=== PATIENT | female | born 1955 | race Caucasian/White ===

== ENCOUNTER → 2016-10-28 | Outpatient (CLI) | payer OTHER ==
[~2016-10-28] MED LIST: ATRINSX INH; BUDE0.5S NEB; DOCU100C31 PO; FRS/40 PO; IPRA1AER2 INH; IPRASOL4 INH; LEVAAER2 INH; POLY335040 PO; RBX750 PO; SENN8.6T45 PO; ULT50HP PO; WARF-246 PO; XPNINS125 PO
--- NOTE | 2016-10-28 14:00 | DIAGNOSTIC IMAGING REPORT ---
CHEST 2 VIEWS ROUTINE CLINICAL HISTORY: Chronic obstructive pulmonary disease. COMPARISON STUDY: Chest CT June 21, 2016 per FINDINGS: This exam is compromised by suboptimal penetration. No pneumothorax is present. No pleural effusion is present. There is no radiographic evidence of pulmonary edema. Mild interstitial prominence is unchanged. Hazy bibasilar opacities persist. IMPRESSION: Technically difficult exam to interpret. No definite change since prior exam. Hazy bibasilar opacities and interstitial thickening. Electronically signed by: Daniel Babb M.D. 10/28/2016 1:58 PM Dictated Date/Time: 10/28/2016 1:55 PM
== END | disposition home or self-care (01) ==
LOC: C.RAD1850 13:43
PROVIDERS: ATTEND Internal Medicine Pulmonary Disease
DX: E66.2 Morbid (severe) obesity with alveolar hypoventilation (principal); G47.33 Obstructive sleep apnea (adult) (pediatric); J44.1 Chronic obstructive pulmonary disease with (acute) exacerbation; J44.9 Chronic obstructive pulmonary disease, unspecified

== ENCOUNTER → 2016-11-01 | Outpatient (CLI) | payer OTHER ==
[2016-11-01 14:56] LABS: INR 2.2 (0.9-1.1); PROTHROMBIN TIME (PATIENT) 24.2 SECONDS (9.0-12.0)
== END | disposition home or self-care (01) ==
LOC: C.LAB1850 13:17
PROVIDERS: ATTEND Nurse Practitioner Family
DX: I26.99 Other pulmonary embolism without acute cor pulmonale (principal)

== ENCOUNTER → 2017-01-20 | Outpatient (CLI) | payer OTHER ==
[~2017-01-20] MED LIST changes: +FENTANYL CITRATE INJ 50 MCG/1 ML 2 ML VIAL ONE
[2017-01-20 16:51] LABS: BLOOD UREA NITROGEN 15 mg/dl (7-18); BUN/CREATININE RATIO 24.1 (10-20); CREATININE 0.61 mg/dl (0.60-1.20)
[2017-01-20 16:55] LABS: INR 1.5 (0.9-1.1); PROTHROMBIN TIME (PATIENT) 16.8 SECONDS (9.0-12.0)
== END | disposition home or self-care (01) ==
LOC: C.LABPBG 13:36
PROVIDERS: ATTEND Family Medicine
DX: I26.99 Other pulmonary embolism without acute cor pulmonale (principal)

== ENCOUNTER → 2017-01-31 | Outpatient (CLI) | payer OTHER ==
[~2017-01-31] MED LIST changes: -FENTANYL CITRATE INJ 50 MCG/1 ML 2 ML VIAL ONE; +OPTIRAY 320 IV PRN
--- NOTE | 2017-01-31 12:07 | DIAGNOSTIC IMAGING REPORT ---
CHEST CTA for PULMONARY ARTERIES CT DOSE: 526.66 mGycm HISTORY: Chest pain abnormal CT exam TECHNIQUE: Multiaxial CT images of the chest were performed following the intravenous administration of contrast to evaluate the pulmonary arteries. Maximal intensity projection images were also obtained. COMPARISON STUDY: 06/21/2016 FINDINGS: Stable focal bronchiectatic changes anterior aspect right middle lobe. Subtle unchanging nodularity of the right lung. Subtle interstitial prominence compared to the prior exam. No well-defined focal infiltrate. No significant hilar or mediastinal adenopathy. IMPRESSION: 1. Since subtle increase in interstitial prominence as compared to the prior study. 2. Study otherwise is similar with unchanging micronodule changes within the right lung as well as focal bronchiectatic changes anterior right middle lobe. Electronically signed by: Naren Madrid M.D. 01/31/2017 12:05 PM Dictated Date/Time: 01/31/2017 12:02 PM
[2017-01-31 12:58] LABS: INR 2.6 (0.9-1.1); PROTHROMBIN TIME (PATIENT) 28.9 SECONDS (9.0-12.0)
== END | disposition home or self-care (01) ==
LOC: C.CTS 10:49
PROVIDERS: ATTEND Nurse Practitioner Family
DX: I26.99 Other pulmonary embolism without acute cor pulmonale (principal)

== ENCOUNTER → 2017-05-29 | Outpatient (CLI) | payer OTHER ==
[~2017-05-29] MED LIST changes: -OPTIRAY 320 IV PRN
[2017-05-29 17:56] LABS: BASO % 0.3 %; BASO ABS # 0.02 K/uL (0-0.2); COMPLETE YES; EOS % 2.6 %; HEMATOCRIT 40.9 % (37-47); IG% 0.1 %; LYMPH % 21.2 %; LYMPH ABS # 1.45 K/uL (1.2-3.4); MEAN CELL VOLUME 86.1 fL (80-100); MEAN CORPUSCULAR HEMOGLOBIN 25.9 pg (25-34); MEAN CORPUSCULAR HGB CONC 30.1 g/dl (32-36); MEAN PLATELET VOLUME 10.9 fL (7.4-10.4); MONO % 6.1 %; NEUT % 69.7 %; PLATELET COUNT 164 K/uL (130-400); RED BLOOD COUNT 4.75 M/uL (4.2-5.4); WHITE BLOOD COUNT 6.84 K/uL (4.8-10.8)
[2017-05-29 18:09] LABS: ALT/SGPT 14 U/L (12-78); BLOOD UREA NITROGEN 12 mg/dl (7-18); BUN/CREATININE RATIO 19.2 (10-20); CALCIUM 8.2 mg/dl (8.5-10.1); CARBON DIOXIDE 40 mmol/L (21-32); CHLORIDE 95 mmol/L (98-107); GLUCOSE 131 mg/dl (70-99); POTASSIUM 4.5 mmol/L (3.5-5.1); SODIUM 137 mmol/L (136-145)
[2017-05-29 18:20] LABS: ALB/GLOB RATIO 0.7 (0.9-2); ALKALINE PHOSPHATASE 126 U/L (45-117); AST/SGOT 8 U/L (15-37); FERRITIN 27.9 ng/ml (8.0-388.0)
== END | disposition home or self-care (01) ==
LOC: C.LABPBG 15:02
PROVIDERS: ATTEND Nurse Practitioner Family
DX: J44.9 Chronic obstructive pulmonary disease, unspecified (principal); E66.2 Morbid (severe) obesity with alveolar hypoventilation; R25.2 Cramp and spasm

== ENCOUNTER → 2017-10-11 | Outpatient (CLI) | payer OTHER ==
[~2017-10-11] MED LIST changes: +PERFLUTREN LIPID MICROSPHERE (DEFINITY) IV ONE
--- NOTE | 2017-10-11 15:45 | ECHOCARDIOGRAM REPORT ---
*NOTICE TO RECEIVING [employer] This information is strictly Confidential and protected under [place] law. [place] law prohibits you from making any further disclosure of this information unless further disclosure is expressly permitted by the written consent of the person to whom it pertains or is authorized by law. A general authorization for the release of medical or other information is not sufficient for this purpose. Hospital accepts no responsibility if the information is made available to any other person, INCLUDING THE PATIENT. Interpretation Summary * Name: JASON MORILLO Study Date: 10/11/2017 01:44 PM BP: 169/78 mmHg * Patient Location: [facility] HR: 86 * : 1955 (M/d/yyyy) Gender: Female Height: 59 in * Age: 61 yrs Ethnicity: CA Weight: 310 lb * Ordering Physician: Patric Bourne * Referring Physician: Patric Bourne * Performed By: Thania Botello RDCS * * Reason For Study: CAD * BSA: 2.2 m2 * -- Conclusions -- * Left ventricular systolic function is normal. * No regional wall motion abnormalities noted. * Ejection Fraction = 55-60%. * There is borderline concentric left ventricular hypertrophy. * Grade I diastolic dysfunction, (abnormal relaxation pattern). * No significant vavlular pathology. Procedure Details * A contrast injection of Definity was performed to improve assessment of LV function. * Contrast was injected into an intravenous site in the left arm. * One vial of Definity ultrasound contrast was diluted in normal saline to a total volume of 10 ml. A total of '2' ml of solution was administered during imaging. * Lot # [id number] of Definity utilized for procedure. * Expiration date 1 NOV 20. * The attending nurse who injected the contrast agent was MARY MENDEZ RN. Left Ventricle * The left ventricle is normal in size. * There is borderline concentric left ventricular hypertrophy. * Left ventricular systolic function is normal. * Ejection Fraction = 55-60%. * No regional wall motion abnormalities noted. Right Ventricle * The right ventricle is not well visualized. * The right ventricular systolic function is normal as assessed by tricuspid annular plane systolic excursion (TAPSE) (normal >1.5 cm). Atria * The left atrium is not well visualized. * Right atrium not well visualized. * There is no evidence of atrial septal defect, but resolution does not allow assessment for a patent foramen ovale. Mitral Valve * The mitral valve is not well visualized. * There is no mitral valve stenosis. * Significant mitral regurgitation is absent. Tricuspid Valve * The tricuspid valve is not well visualized. * Significant tricuspid regurgitation is absent. Aortic Valve * The aortic valve is not well visualized. * The aortic valve opens well. * No hemodynamically significant valvular aortic stenosis. * There is no significant aortic regurgitation. Pulmonic Valve * The pulmonic valve is not well visualized. Great Vessels * The aortic root is normal size. * The pulmonary is not well visualized. Pericardium/Pleural * There is no pericardial effusion. Great Vessels * Inferior vena cava not well seen. Left Ventricular Diastolic Function * Grade I diastolic dysfunction, (abnormal relaxation pattern). MMode 2D Measurements and Calculations Ao root diam 2.8 cm Ao root area 6.2 cm\S\2 LA dimension 3.8 cm LA/Ao 1.3 LVAd ap4 29.8 cm\S\2 LVLd ap4 8.2 cm EDV(MOD-sp4) 89.9 ml EDV(sp4-el) 92.3 ml LVAs ap4 16.9 cm\S\2 LVLs ap4 6.5 cm ESV(MOD-sp4) 36.1 ml ESV(sp4-el) 37.1 ml EF(MOD-sp4) 59.9 % EF(sp4-el) 59.9 % LVAd ap2 30.9 cm\S\2 LVLd ap2 8.6 cm EDV(MOD-sp2) 92.6 ml EDV(sp2-el) 94.5 ml LVAs ap2 17.6 cm\S\2 LVLs ap2 6.7 cm ESV(MOD-sp2) 38.7 ml ESV(sp2-el) 39.4 ml EF(MOD-sp2) 58.2 % EF(sp2-el) 58.3 % LVLd %diff 5.0 % EDV(MOD-bp) 94.0 ml LVLs %diff 2.2 % ESV(MOD-bp) 37.3 ml EF(MOD-bp) 60.3 % SV(MOD-sp4) 53.9 ml SI(MOD-sp4) 24.3 ml/m\S\2 SV(MOD-sp2) 54.0 ml SI(MOD-sp2) 24.3 ml/m\S\2 SV(MOD-bp) 56.7 ml SI(MOD-bp) 25.5 ml/m\S\2 SV(sp4-el) 55.3 ml SI(sp4-el) 24.9 ml/m\S\2 SV(sp2-el) 55.1 ml SI(sp2-el) 24.8 ml/m\S\2 Doppler Measurements and Calculations MV E max phyllis 73.0 cm/sec MV A max phyllis 92.7 cm/sec MV E/A 0.79 MV dec time 0.26 sec Ao V2 max 146.5 cm/sec Ao max PG 8.6 mmHg Ao max PG (full) 3.8 mmHg LV V1 max PG 4.8 mmHg LV V1 max 109.2 cm/sec
== END | disposition home or self-care (01) ==
LOC: C.CPL 13:33
PROVIDERS: ATTEND Nurse Practitioner Family
DX: I25.10 Atherosclerotic heart disease of native coronary artery without angina pectoris (principal)

== ENCOUNTER 2017-11-04 19:26 | Emergency (ER) | payer OTHER ==
[~2017-11-04] VITALS: Ht 149.9 cm; Wt 178.0 kg
[~2017-11-04 19:26] MED LIST changes: -PERFLUTREN LIPID MICROSPHERE (DEFINITY) IV ONE
[2017-11-04 19:30] VITALS: TEMP 36.6; Ht 149.9 cm; Wt 178.0 kg
[2017-11-04] MEDS ORDERED: TRAMADOL HCL 50 MG TAB PO STA (19:45)
[2017-11-04] MEDS ORDERED: IBUPROFEN 200 MG TAB PO STA (19:45)
[2017-11-04] MEDS ORDERED: ACETAMINOPHEN 325 MG TAB PO STA (19:45)
--- NOTE | 2017-11-04 19:47 | EMERGENCY ROOM VISIT NOTE ---
History Report prepared by Monica: Shahzad Colon Under the Supervision of: Dr. Kamran White M.D. 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 She rates her pain as a 10/10 in severity. She describes the pain as a sharp sensation and denies any radiation of pain. Negative hitting her head, LOC, tobacco use. The patient states that she was coming out of the bathroom 20 minutes ago when she tried to avoid stepping on a bottle cap. She reports that when she went to move around it when "everything gave out" and she landed on her left wrist. She states that since the incident, she has been experiencing left wrist pain. The patient states that she has had similar problems in the past. She reports that she uses 6 L of oxygen due to her history of COPD. 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 A total of ten systems were reviewed and were otherwise negative. Past Medical & Surgical Medical Problems: (1) Acute on chronic respiratory failure with hypoxia and hypercapnia (2) Body mass index 30+ - obesity (3) Chr obstructive pulmonary disease w/ acute lower respiratory infxn (4) Chronic renal impairment (5) Essential hypertension (6) GENERAL OSTEOARTHROSIS (7) Plantar fasciitis Family History Cancer Diabetes mellitus Heart disease Hypertension Kidney disease Lung disease Social History Smoking Status: Former Smoker Alcohol Use: none Drug Use: none Marital Status: single Housing Status: unknown Occupation Status: retired Current/Historical Medications Scheduled Budesonide Soln (Pulmicort Respules 0.5MG/2ML), 1 VIAL NEB BID Docusate Sodium (Docusate Sodium), 1 CAP PO BID Ergocalciferol (Vitamin D 70130 Unit), 1 TAB PO WK Furosemide (Lasix), 40 MG PO DAILY Home O2 Therapy (Oxygen), 4 LITERS NA CONTINOUS Ipratropium [place] (Atrovent 0.02% Soln), 1 UNIT INH QID Methocarbamol (Methocarbamol), 750 MG PO QID Omeprazole (Prilosec), 40 MG PO DAILY [Utibron], 1 PUFF PO BID Scheduled PRN Albuterol Hfa (Ventolin Hfa), 2-4 PUFFS INH Q6H PRN for Shortness of Breath Albuterol Sulf (Albuterol Sulfate), 1 UNIT NEB Q4 PRN for Shortness of Breath Polyethylene (Miralax Powder Packet), 17 GM PO DAILY PRN for Constipation Tramadol (Ultram), 50 MG PO Q4H PRN for Pain Tramadol (Ultram), 50 MG PO Q8H PRN for Pain Allergies Coded Allergies: Codeine (Verified Adverse Reaction, Mild, SHAKING, 11/04/17) Oxycodone (Verified Adverse Reaction, Unknown, rash/shakes, 11/04/17) Physical Exam Vital Signs Date Time Temp Pulse Resp B/P (MAP) Pulse Ox O2 Delivery O2 Flow Rate FiO2 11/04/17 22:47 80 20 154/55 99 Nasal Cannula 6.0 11/04/17 21:23 80 20 127/61 98 Room Air 11/04/17 19:30 36.6 90 22 178/76 100 Nasal Cannula 6.0 Physical Exam GENERAL: Awake, alert, well-appearing, NAD, obese, NC in place HENT: Normocephalic, atraumatic. EYES: Normal conjunctiva. Sclera non-icteric. NECK: Supple. No nuchal rigidity. FROM. RESPIRATORY: CTAB, no rhonchi, wheezing, crackles CARDIAC: RRR, no MRG ABDOMEN: Soft, NTND, BS+ MSK: No chest wall TTP, non pitting LE edema, Distal ulnar and radial pain. No pain in elbow, upper arm, or shoulder. NEURO: GCS 15, CN 2-12 intact, moves all 4s on command. NVI distally LUE to M/U/ R nerves, somewhat limited to pain. SKIN: No rash or jaundice noted. Medical Decision & Procedures ER Provider Diagnostic Interpretation: X-ray: Per my interpretation, radiologist review. WRIST 2 VIEW CLINICAL HISTORY: Fall on outstretched hand. COMPARISON: None FINDINGS: There is a markedly comminuted, moderately displaced distal left radial fracture with intra-articular extension. Multiple bone fragments are present. There is intra-articular extension. Dorsal tilt of the distal component is noted. There is an acute mildly displaced fracture of the ulnar styloid. Carpal bones appear intact. A ring on the fourth finger is present. IMPRESSION: 1. Markedly comminuted, moderately displaced distal left radial fracture with intra-articular extension consistent with a Colles' fracture. 2. Acute mildly displaced ulnar styloid fracture. Electronically signed by: Daniel Babb M.D. 11/04/2017 8:17 PM Dictated Date/Time: 11/04/2017 8:16 PM Medications Administered Medications (Trade) Dose Ordered Sig/Monse Route Start Time Stop Time Status Last Admin Dose Admin Acetaminophen (Tylenol Tab) 650 mg NOW STAT PO 11/04/17 19:45 11/04/17 19:47 DC 11/04/17 19:55 650 MG Ibuprofen (Advil Tab) 400 mg NOW STAT PO 11/04/17 19:45 11/04/17 19:48 DC 11/04/17 19:55 400 MG Tramadol HCl (Ultram Tab) 50 mg NOW STAT PO 11/04/17 19:45 11/04/17 19:48 DC 11/04/17 19:55 50 MG Morphine Sulfate (MoRPHine SULFATE INJ) 4 mg ONE STAT IM 11/04/17 21:47 11/04/17 21:48 DC 11/04/17 22:01 4 MG Procedure Left Wrist Fracture Reduction Indication: Fracture Verbal consent obtained. Risks and benefits were explained with the usual customary discussion. A time out was taken. Neurovascular examination before the procedure revealed intact MRU nerves. The posterior aspect of the distal forearm was cleansed with chlorapep and then the subcutaneous tissue was injected with a 22G needle with 7 cc's of lidocaine w/ epinephrine. This resulted in good anesthesia. The patient was wrapped partially in webril. Traction/counter traction applied with the help of an retirement assistant and a splint was placed and ERICKA wrap applied. Patient's radial head was pressed into position. Post procedure XR showed mild improvement in her alignment. Neurovascular examination after the procedure revealed intact MRU nerves. The patient tolerated the procedure well. ED Course 1937: The patient was evaluated in room C03. A complete history and physical exam was performed. 2021: I reevaluated the patient and updated her on her results. 2110: I performed a Left Wrist Reduction on the patient. See procedure notes for further details. 2247: I discussed the patient's case with [facility]. He reports he is able to see the patient on Monday. 2252: I reevaluated the patient. Discussed results and discharge instructions: She verbalized understanding and agreement. The patient is ready for discharge. Medical Decision Triage Nursing notes reviewed. 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 The patient's presentation and history were concerning for etiologies such as fracture, dislocation, neurovascular compromise, compartment syndrome, soft tissue injury, as well as others were entertained. Patient was seen and evaluated the bedside. Patient did have a mechanical fall approximately 2030 minutes prior to arrival. Patient did complain of some left- sided wrist pain. Patient denied any syncope. Patient does chronically use 6 L of home O2. Asians vital signs stable and patient is not hypoxic on her usual home oxygen. Patient did have a plain film completed which did show a both bone forearm fracture. It is closed neurovascularly intact. She did have a Colles' as well as an ulnar styloid fracture. Patient did undergo a hematoma block and attempt reduction. The alignment improved but is not completely satisfactory. I did discuss the patient with the on-call orthopedist. She will be seen in clinic on Monday at their office. Patient was deemed suitable for outpatient follow-up and treatment at this time. Patient was told to remain in her splint as well as a sling for comfort. Rice therapy encouraged. Patient was given strict follow-up, discharge, and return precautions. All questions were answered. Patient was deemed suitable for outpatient follow-up at this time. Patient agreed with the plan of care and was safely discharged home. The chart was completed utilizing [employer] Speech voice recognition software. Grammatical errors, random word insertions, pronoun errors, and incomplete sentences are an occasional consequence of this system due to software limitations, ambient noise, and hardware issues. Any formal questions or concerns about the content, text, or information contained within the body of this dictation should be directly addressed to the physician for clarification. Medication Reconcilliation Current Medication List: was personally reviewed by me Blood Pressure Screening Patient's blood pressure: Elevated blood pressure Blood pressure disposition: Elevated BP felt to be situational Consults Time Called: 2244 Consulting Physician: [facility] Returned Call: [phone] I discussed the patient's case with [facility]. He reports he is able to see the patient on Monday. Impression Primary Impression: Colles' fracture of left radius, initial encounter for closed fracture Additional Impressions: Fracture of ulnar styloid Fall Scribe Attestation The scribe's documentation has been prepared under my direction and personally reviewed by me in its entirety. I confirm that the note above accurately reflects all work, treatment, procedures, and medical decision making performed by me. Departure Information Dispostion Home / Self-Care Prescriptions Tramadol (Ultram) 50 Mg Tab 50 MG PO Q8H Y for Pain, #12 TAB Prov: Kamran White M.D. 11/04/17 Referrals Beatriz Baker DO (PCP) Beto Mendoza DO Patient Instructions ED Fx Colles Wrist Redu Requ, ED Mechanical Fall, ED Prevention Fall, ED RICE, [facility] Additional Instructions Please return to the emergency department if you have worsening or recurrent symptoms not amenable to at-home treatment. Please call for a follow-up appointment with her primary care physician. Please take your medications as prescribed. If you have other concerns and/or complaints please feel free to also call your primary care physician's office or return the ED for further evaluation, management, and treatment. You were found to have an elevated blood pressure today (>120 sytolic or >90 diastolic). Per medicare guidelines, you need to follow up with this blood pressure screening with your Primary Care Physician (PCP). For a new PCP call [phone]. You received narcotic or benzodiazepene medication while in the emergency room today. This is an addictive medication that may cause drowziness as well as constipation. Do not drive, operate heavy machinery, or drink alcohol under the influence of this medication. You may take 400 mg Ibuprofen every 6 hours as needed for pain with food for no more than 2 consecutive days. You may take tylenol 1000 mg every 6 hours as needed for pain. You may take motrin and tylenol separately or at the same time. If he still have discomfort you may take tramadol. Please only take as prescribed as this is a sedating medicine. Please follow up on 11/06/[address] Beto Mendoza at [facility] at 1015AM. They suggested you arrive at 945AM. Address: [address] [facility], [place] [address] Hours: Closed Opens 8AM Mon Take your medications as prescribed. If taking an antibiotic consider taking a probiotic and/or eating yogurt, but at the least, please take with food as it can cause upset stomach. If culture results are not available at discharge, if they are positive for concern of infection, you will be informed of the results as soon as they are available. If you were seen between 11pm and 7AM all radiology reads will be re-read by our in house staff. If any major discrepancies are discovered, you will be notified. You have been examined and treated today on an emergency basis only. This is not a substitute for, or an effort to provide, complete comprehensive medical care. It is impossible to recognize and treat all injuries or illnesses in a single emergency department visit. It is therefore important that you follow up closely with [facility], your PCP, and/or your specialist(s). Call as soon as possible for an appointment. Thank you for your time and consideration. I look forward to speaking with you again soon. Please don't hesitate to call us if you have any questions. Problem Qualifiers Additional Impressions: Fracture of ulnar styloid Encounter type: initial encounter Fracture type: closed Fracture alignment : displaced Laterality: left Qualified Codes: S52.612A - Displaced fracture of left ulna styloid process, initial encounter for closed fracture Fall Encounter type: initial encounter Qualified Codes: W19.XXXA - Unspecified fall, initial encounter
[2017-11-04] MEDS ORDERED: OXGN (20:05)
[2017-11-04] MEDS ORDERED: OMEP40CA41 PO (20:05)
[2017-11-04] MEDS ORDERED: ALBINS NEB (20:05)
[2017-11-04] MEDS ORDERED: TRAM-10 PO ×2 (20:05→23:13)
[2017-11-04] MEDS ORDERED: VNTHFA/IN INH (20:05)
[2017-11-04] MEDS ORDERED: UTIBRON PO (20:05)
[2017-11-04] MEDS ORDERED: ERGO500011 PO (20:05)
--- NOTE | 2017-11-04 20:18 | DIAGNOSTIC IMAGING REPORT ---
WRIST 2 VIEW CLINICAL HISTORY: Fall on outstretched hand. COMPARISON: None FINDINGS: There is a markedly comminuted, moderately displaced distal left radial fracture with intra-articular extension. Multiple bone fragments are present. There is intra-articular extension. Dorsal tilt of the distal component is noted. There is an acute mildly displaced fracture of the ulnar styloid. Carpal bones appear intact. A ring on the fourth finger is present. IMPRESSION: 1. Markedly comminuted, moderately displaced distal left radial fracture with intra-articular extension consistent with a Colles' fracture. 2. Acute mildly displaced ulnar styloid fracture. Electronically signed by: Daniel Babb M.D. 11/04/2017 8:17 PM Dictated Date/Time: 11/04/2017 8:16 PM
[2017-11-04] MEDS ORDERED: LIDOCAINE/EPINEPHRINE 1% 20 ML VIAL INFIL ONE (20:30)
[2017-11-04] MEDS ORDERED: NURSING VERBAL MED ORDER STA (21:44)
[2017-11-04] MEDS ORDERED: MoRPHine SULFATE 4 MG/ML 1 ML CARP\\VIAL IM STA (21:47)
[2017-11-04 22:47] VITALS: BP 154/55; PULSE 80; O2SAT 99
[2017-11-04] MEDS ORDERED: TRAMADOL HCL 50 MG HOME PACK PO ONE (23:15)
--- NOTE | 2017-11-05 06:00 | DIAGNOSTIC IMAGING REPORT ---
WRIST 2 VIEW CLINICAL HISTORY: 61 years-old Female presenting with s/p reduction. TECHNIQUE: Frontal and lateral views of the left wrist were obtained. COMPARISON: Plain radiographs performed earlier the same day. FINDINGS: An overlying plaster splint is now in place obscuring underlying osseous detail. Previously noted markedly comminuted, moderately displaced distal left radial fracture is intra-articular extension demonstrates slightly improved alignment with less pronounced apex all are angulation at the fracture site and dorsal malalignment of the radiocarpal joint. Ulnar styloid fracture also noted. Carpus grossly intact. IMPRESSION: Interval plaster splinting with slight decrease in apex volar malalignment at the comminuted intra-articular distal radial fracture. No new malalignment. Electronically signed by: Chadwick Day M.D. 11/05/2017 5:59 AM Dictated Date/Time: 11/05/2017 5:57 AM
== END 2017-11-04 23:13 | disposition home or self-care (01) ==
LOC: EDBD 19:26 → C.EDC 19:28
DX: S52.532A Colles' fracture of left radius, initial encounter for closed fracture (principal); S52.612A Displaced fracture of left ulna styloid process, initial encounter for closed fracture; W19.XXXA Unspecified fall, initial encounter; Y92.018 Other place in single-family (private) house as the place of occurrence of the external cause; J44.9 Chronic obstructive pulmonary disease, unspecified; I10 Essential (primary) hypertension; N28.9 Disorder of kidney and ureter, unspecified; M19.90 Unspecified osteoarthritis, unspecified site; Z80.9 Family history of malignant neoplasm, unspecified; Z83.3 Family history of diabetes mellitus; Z82.49 Family history of ischemic heart disease and other diseases of the circulatory system; Z84.1 Family history of disorders of kidney and ureter; Z83.6 Family history of other diseases of the respiratory system; Z87.891 Personal history of nicotine dependence; Z79.899 Other long term (current) drug therapy; Z99.81 Dependence on supplemental oxygen

== ENCOUNTER 2017-11-06 10:41 | Inpatient (IN) | payer OTHER ==
[~2017-11-06] VITALS: Ht 149.9 cm; Wt 130.0 kg
[2017-11-06] VITALS (14 sets, daily range): BP systolic 92–172; BP diastolic 46–121; PULSE 72–85; TEMP 36.6–36.9; O2SAT 90–100; Ht 149.9 cm; Wt 130.0 kg
[~2017-11-06 10:41] MED LIST changes: +ALBINS NEB; +ERGO500011 PO; -IPRA1AER2 INH; -IPRASOL4 INH; -LEVAAER2 INH; +OMEP40CA41 PO; +OXGN; -SENN8.6T45 PO; +TRAM-10 PO; -ULT50HP PO; +UTIBRON PO; +VNTHFA/IN INH; -WARF-246 PO; -XPNINS125 PO
--- NOTE | 2017-11-06 12:28 | EMERGENCY ROOM VISIT NOTE ---
History Report prepared by Monica: Joni Bernstein Under the Supervision of: Dr. Almas Boo M.D. First contact with patient: 12:18 Chief Complaint: CONFUSION Stated Complaint: CONFUSION Nursing Triage Summary: per EMS, pt presenting w/ increased confusion and difficulty ambulating. pt on 6L o2 chronic. per ems, pt fell last week and has left arm fx. History of Present Illness This HPI is limited due to the disorientation of the patient. HPI acquired from son. The patient is a 61 year old female who presents to the Emergency Room with complaints of lethargy and being generally disoriented that he first noticed today. The patient's son notes that she had a falling episode two days ago that brought her into the emergency department. On this fall she broke her left wrist and lost consciousness. The son notes that she did not have any neurologic testing done on this visit. When the son saw the patient today she was weak and unable to stand on her own, and was acting unusually disoriented. He states that the patient has a history of altered mental status secondary to high carbon dioxide levels. She is supposed to wear C-pap at night to remedy this, but she is afraid of the mask and refuses to wear it. He does not believe the pain medication for the broken wrist could cause her confusion as she takes Tramadol on a regular basis. Source of History: family History Limited By: AMS Onset: Today Position: other (Global) Quality: other (weakness, confusion) Review of Systems ROS limited due to the confusion of the patient. Past Medical & Surgical Medical Problems: (1) Acute on chronic respiratory failure with hypoxia and hypercapnia (2) Body mass index 30+ - obesity (3) Chr obstructive pulmonary disease w/ acute lower respiratory infxn (4) Chronic renal impairment (5) Essential hypertension (6) GENERAL OSTEOARTHROSIS (7) Hypercapnic respiratory failure (8) Plantar fasciitis Family History Cancer Diabetes mellitus Heart disease Hypertension Kidney disease Lung disease Social History Smoking Status: Never Smoker Alcohol Use: none Drug Use: none Marital Status: single Housing Status: unknown Occupation Status: retired Current/Historical Medications Scheduled Budesonide Soln (Pulmicort Respules 0.5MG/2ML), 1 VIAL NEB BID Docusate Sodium (Docusate Sodium), 1 CAP PO BID Ergocalciferol (Vitamin D 98099 Unit), 1 TAB PO WK Furosemide (Lasix), 40 MG PO DAILY Home O2 Therapy (Oxygen), 4 LITERS NA CONTINOUS Ipratropium [place] (Atrovent 0.02% Soln), 1 UNIT INH QID Methocarbamol (Methocarbamol), 750 MG PO QID Omeprazole (Prilosec), 40 MG PO DAILY [Utibron], 1 PUFF PO BID Scheduled PRN Albuterol Hfa (Ventolin Hfa), 2-4 PUFFS INH Q6H PRN for Shortness of Breath Albuterol Sulf (Albuterol Sulfate), 1 UNIT NEB Q4 PRN for Shortness of Breath Polyethylene (Miralax Powder Packet), 17 GM PO DAILY PRN for Constipation Tramadol (Ultram), 50 MG PO Q4H PRN for Pain Tramadol (Ultram), 50 MG PO Q8H PRN for Pain Allergies Coded Allergies: Codeine (Verified Adverse Reaction, Mild, SHAKING, 11/06/17) Oxycodone (Verified Adverse Reaction, Unknown, rash/shakes, 11/06/17) Physical Exam Vital Signs Date Time Temp Pulse Resp B/P (MAP) Pulse Ox O2 Delivery O2 Flow Rate FiO2 11/06/17 14:02 83 95 45 11/06/17 13:46 79 11/06/17 13:18 36.6 79 18 157/76 95 Nasal Cannula 6.0 11/06/17 11:03 84 11/06/17 10:55 36.5 87 18 149/55 Nasal Cannula 6.0 Physical Exam GENERAL: Patient is a healthy-appearing well-nourished female. Patient is Pickwickian in nature. HEAD: Normocephalic atraumatic EYES: Ocular movements intact pupils equal and react to light OROPHARYNX mucous membranes are moist no exudates present no erythema or edema present NECK: Supple no nuchal rigidity CHEST: Good equal expansion LUNGS: Clear and equal to auscultation CARDIAC: Normal S1 and S2 ABDOMEN: Soft nontender no guarding BACK: No CVA tenderness EXTREMITIES: No pain upon palpation normal muscle strength in all groups no clubbing cyanosis or edema NEURO: Patient is following commands and answering questions appropriately. Alert and oriented x3 Cranial Nerves 2-12 grossly intact Medical Decision & Procedures ER Provider Diagnostic Interpretation: Radiology results as stated below per my review and radiologist interpretation. CHEST ONE VIEW PORTABLE CLINICAL HISTORY: Pt c/o AMS dyspnea COMPARISON STUDY: 10/28/2016 FINDINGS: Mild cardiomegaly. Tortuous thoracic aorta. Prominent pulmonary vasculature. Mild chronic bibasilar interstitial change. IMPRESSION: Developing congestive heart failure. The above report was generated using voice recognition software. It may contain grammatical, syntax or spelling errors. Electronically signed by: Naren Madrid M.D. 11/06/2017 12:40 PM Dictated Date/Time: 11/06/2017 12:39 PM HEAD WITHOUT CONTRAST (CT) CLINICAL HISTORY: 61 years-old Female with Pt c/o AMS. Acute altered mental status with confusion and difficulty walking TECHNIQUE: Multiple axial CT images of the head were obtained without contrast. A dose lowering technique was utilized adhering to the principles of ALARA. CT DOSE: 614.27 mGy.cm COMPARISON: CT head 06/08/2016. FINDINGS: No acute intracranial hemorrhage, midline shift, intracranial mass, hydrocephalus, territorial ischemia or abnormal extra-axial collection. Exam is mildly motion degraded. The calvarium is intact. The paranasal sinuses, mastoid air cells, and middle ear cavities are clear. Hypoplasia of the frontal sinuses. IMPRESSION: No acute intracranial abnormality. The above report was generated using voice recognition software. It may contain grammatical, syntax or spelling errors. Electronically signed by: Edy Wells M.D. 11/06/2017 12:55 PM Dictated Date/Time: 11/06/2017 12:52 PM Laboratory Results 11/06/17 11:30 Red Blood Count 4.14, Mean Corpuscular Volume 95.4, Mean Corpuscular Hemoglobin 29.0, Mean Corpuscular Hemoglobin Concent 30.4, Mean Platelet Volume 10.4, Neutrophils (%) (Auto) 78.8, Lymphocytes (%) (Auto) 10.3, Monocytes (%) (Auto) 8.0, Eosinophils (%) (Auto) 0.8, Basophils (%) (Auto) 0.1, Neutrophils # (Auto) 6.21, Lymphocytes # (Auto) 0.81, Monocytes # (Auto) 0.63, Eosinophils # (Auto) 0.06, Basophils # (Auto) 0.01 11/06/17 11:30 Test 11/06/17 11:30 11/06/17 12:37 11/06/17 13:06 11/06/17 13:32 White Blood Count 7.88 K/uL (4.8-10.8) Red Blood Count 4.14 M/uL (4.2-5.4) Hemoglobin 12.0 g/dL (12.0-16.0) Hematocrit 39.5 % (37-47) Mean Corpuscular Volume 95.4 fL (80-100) Mean Corpuscular Hemoglobin 29.0 pg (25-34) Mean Corpuscular Hemoglobin Concent 30.4 g/dl (32-36) Platelet Count 119 K/uL (130-400) Mean Platelet Volume 10.4 fL (7.4-10.4) Neutrophils (%) (Auto) 78.8 % Lymphocytes (%) (Auto) 10.3 % Monocytes (%) (Auto) 8.0 % Eosinophils (%) (Auto) 0.8 % Basophils (%) (Auto) 0.1 % Neutrophils # (Auto) 6.21 K/uL (1.4-6.5) Lymphocytes # (Auto) 0.81 K/uL (1.2-3.4) Monocytes # (Auto) 0.63 K/uL (0.11-0.59) Eosinophils # (Auto) 0.06 K/uL (0-0.5) Basophils # (Auto) 0.01 K/uL (0-0.2) RDW Standard Deviation 50.0 fL (36.4-46.3) RDW Coefficient of Variation 14.4 % (11.5-14.5) Immature Granulocyte % (Auto) 2.0 % Immature Granulocyte # (Auto) 0.16 K/uL (0.00-0.02) Nucleated RBC Absolute Count (auto) 0.06 K/uL (0-0) Nucleated Red Blood Cells % 0.7 % Prothrombin Time 9.2 SECONDS (9.0-12.0) Prothromb Time International Ratio 0.9 (0.9-1.1) Activated Partial Thromboplast Time 24.6 SECONDS (21.0-31.0) Partial Thromboplastin Ratio 0.9 Anion Gap -1.0 mmol/L (3-11) Est Creatinine Clear Calc Drug Dose 66.2 ml/min Estimated GFR () 57.2 Estimated GFR (Non- 49.4 BUN/Creatinine Ratio 18.7 (10-20) Calcium Level 8.9 mg/dl (8.5-10.1) Total Bilirubin 0.3 mg/dl (0.2-1) Aspartate Amino Transf (AST/SGOT) 15 U/L (15-37) Alanine Aminotransferase (ALT/SGPT) 17 U/L (12-78) Alkaline Phosphatase 101 U/L (45-117) Total Creatine Kinase 99 U/L (26-192) Creatine Kinase MB 4.1 ng/ml (0.5-3.6) Creatine Kinase MB Ratio 4.1 (0-3.0) Troponin I 0.028 ng/ml (0-0.045) Pro-B-Type Natriuretic Peptide 3030 pg/ml (0-900) Total Protein 7.1 gm/dl (6.4-8.2) Albumin 3.2 gm/dl (3.4-5.0) Globulin 3.9 gm/dl (2.5-4.0) Albumin/Globulin Ratio 0.8 (0.9-2) Influenza Type A (RT-PCR) Neg for Influ A (NEG) Influenza Type A Antigen (NEG) Influenza Type B Antigen (NEG) Influenza Type B (RT-PCR) Neg for Influ B (NEG) Urine Color DK YELLOW Urine Appearance CLEAR (CLEAR) Urine pH 5.0 (4.5-7.5) Urine Specific [place] 1.026 (1.000-1.030) Urine Protein 1+ (NEG) Urine Glucose (UA) NEG (NEG) Urine Ketones NEG (NEG) Urine Occult Blood NEG (NEG) Urine Nitrite NEG (NEG) Urine Bilirubin NEG (NEG) Urine Urobilinogen NEG (NEG) Urine Leukocyte Esterase NEG (NEG) Urine WBC (Auto) 1-5 /hpf (0-5) Urine RBC (Auto) 0-4 /hpf (0-4) Urine Hyaline Casts (Auto) 10-30 /lpf (0-5) Urine Epithelial Cells (Auto) >30 /lpf (0-5) Urine Bacteria (Auto) NEG (NEG) Urine Renal Epithelial Cells /lpf (0-5) Urine Pathogenic Casts /lpf (0) Arterial Blood pH 7.13 (7.35-7.45) Arterial Blood Partial Pressure CO2 138 mmHg (35-46) Arterial Blood Partial Pressure O2 55 mm/Hg (80-95) Arterial Blood HCO3 44 mmol/L (19-24) Arterial Blood Oxygen Saturation 85.2 % (90-95) Arterial Blood Base Excess 10.4 mEq/L (-9-1.8) Arterial Blood Gas Delivery 6 L Berto Test POS (POS) Labs reviewed by ED physician. ECG Indication: altered mental status Rate (beats per minute): 83 Rhythm: normal sinus Findings: no acute ischemic change, no ectopy Change: Patient's electrocardiogram per my interpretation. ED Course 1219: Past medical records reviewed. The patient was evaluated in room B12. A complete history and physical examination was performed. 1353: I discussed the case with Dr. Becky ALEXANDER Hospitalist. He will evaluate the patient for further treatment. 1511: I discussed the case with Lexa Jacobson PA-C ICU. He will evaluate the patient. Medical Decision Differential diagnosis: Etiologies such as metabolic, infection, hypo/hyperglycemia, electrolyte abnormalities, cardiac sources, intracerebral event, toxicologic, neurologic, as well as others were entertained. This is a 61-year-old female with a history of pickwickian syndrome presents emergency department falling asleep. His CO2 was found to be elevated and a gas was obtained. Due to the patient's altered mental status she is placed on BiPAP. Due to the patient's low pH she was then discussed with the ICU as well as the hospitalist who agreed to admit the patient. Patient family were in agreement with the treatment plan. Consults Time Called: 1349 Consulting Physician: Dr. Becky ALEXANDER Hospitalist Returned Call: 1354 I discussed the case with Dr. Becky ALEXANDER Hospitalcarolyn. He will evaluate the patient for further treatment. Additional Consults: Time Called: 1509 Consulted Physician: Lexa Jacobson PA-C ICU Returned Call: 1511 Additional Comments: I discussed the case with Lexa Jacobson PA-C ICU. He will evaluate the patient. Impression Primary Impression: Respiratory failure Critical Care I have personally spent greater than 30 minutes of critical care time in the direct management of this patient. This includes bedside care, interpretation of diagnostic studies, and testing, discussion with consultants, patient, and family members, and other required patient management activities. This 30 minutes is in excess of all separately billable procedures. Scribe Attestation The scribe's documentation has been prepared under my direction and personally reviewed by me in its entirety. I confirm that the note above accurately reflects all work, treatment, procedures, and medical decision making performed by me. Departure Information Dispostion Being Evaluated By Hospitalist Referrals Beatriz Baker DO (PCP) Patient Instructions My [facility] Problem Qualifiers Primary Impression: Respiratory failure Chronicity: acute Respiratory failure complication: hypercapnia Qualified Codes: J96.02 - Acute respiratory failure with hypercapnia
--- NOTE | 2017-11-06 12:41 | DIAGNOSTIC IMAGING REPORT ---
CHEST ONE VIEW PORTABLE CLINICAL HISTORY: Pt c/o AMS dyspnea COMPARISON STUDY: 10/28/2016 FINDINGS: Mild cardiomegaly. Tortuous thoracic aorta. Prominent pulmonary vasculature. Mild chronic bibasilar interstitial change. IMPRESSION: Developing congestive heart failure. The above report was generated using voice recognition software. It may contain grammatical, syntax or spelling errors. Electronically signed by: Naren Madrid M.D. 11/06/2017 12:40 PM Dictated Date/Time: 11/06/2017 12:39 PM
[2017-11-06 12:48] LABS: BASO % 0.1 %; BASO ABS # 0.01 K/uL (0-0.2); EOS % 0.8 %; EOS ABS # 0.06 K/uL (0-0.5); HEMATOCRIT 39.5 % (37-47); IG# 0.16 K/uL (0.00-0.02); LYMPH % 10.3 %; LYMPH ABS # 0.81 K/uL (1.2-3.4); MEAN CELL VOLUME 95.4 fL (80-100); MEAN CORPUSCULAR HGB CONC 30.4 g/dl (32-36); MEAN PLATELET VOLUME 10.4 fL (7.4-10.4); MONO ABS # 0.63 K/uL (0.11-0.59); NEUT % 78.8 %; NEUT ABS # 6.21 K/uL (1.4-6.5); NUCLEATED RED BLOOD CELL ABS 0.06 K/uL (0-0); PLATELET COUNT 119 K/uL (130-400); RED CELL DISTRIBUTION WIDTH CV 14.4 % (11.5-14.5); WHITE BLOOD COUNT 7.88 K/uL (4.8-10.8)
--- NOTE | 2017-11-06 12:56 | DIAGNOSTIC IMAGING REPORT ---
HEAD WITHOUT CONTRAST (CT) CLINICAL HISTORY: 61 years-old Female with Pt c/o AMS. Acute altered mental status with confusion and difficulty walking TECHNIQUE: Multiple axial CT images of the head were obtained without contrast. A dose lowering technique was utilized adhering to the principles of ALARA. CT DOSE: 614.27 mGy.cm COMPARISON: CT head 06/08/2016. FINDINGS: No acute intracranial hemorrhage, midline shift, intracranial mass, hydrocephalus, territorial ischemia or abnormal extra-axial collection. Exam is mildly motion degraded. The calvarium is intact. The paranasal sinuses, mastoid air cells, and middle ear cavities are clear. Hypoplasia of the frontal sinuses. IMPRESSION: No acute intracranial abnormality. The above report was generated using voice recognition software. It may contain grammatical, syntax or spelling errors. Electronically signed by: Edy Wells M.D. 11/06/2017 12:55 PM Dictated Date/Time: 11/06/2017 12:52 PM
[2017-11-06 12:57] LABS: INR 0.9 (0.9-1.1); PTT PATIENT 24.6 SECONDS (21.0-31.0)
[2017-11-06 13:35] LABS: INFLUENZA A PCR Neg for Influ A (NEG); INFLUENZA B PCR Neg for Influ B (NEG)
[2017-11-06 13:36] LABS: ALBUMIN 3.2 gm/dl (3.4-5.0); CALCIUM 8.9 mg/dl (8.5-10.1); CREATININE 1.18 mg/dl (0.60-1.20); POTASSIUM 4.9 mmol/L (3.5-5.1); TOTAL PROTEIN 7.1 gm/dl (6.4-8.2)
[2017-11-06] MEDS ORDERED: ACETAMINOPHEN 325 MG TAB PO PRN (15:00)
[2017-11-06] MEDS ORDERED: LORAZEPAM 0.5 MG TAB PO PRN (15:00)
[2017-11-06] MEDS ORDERED: ICU PROTOCOL FOR HYPERGLYCEMIA PRN (15:00)
[2017-11-06] MEDS ORDERED: MoRPHine SULFATE 2 MG/ML CARP IV PRN (15:00)
--- NOTE | 2017-11-06 15:17 | History and Physical ---
History & Physical Date & Time of Service: Nov 06, 2017 at 15:09 Chief Complaint: Confusion Primary Care Physician: Beatriz Baker DO History of Present Illness Source: patient, family 61-year-old female brought in acute hypercapnic respiratory failure. The patient is found have a blood pH of 7.13 and a PCO2 of 138 on presentation. This patient presented to the ER on November 04 after a fall at home this occurred after she went to the bathroom where she said she had fairly bit of urgency stood up to walk out of the bathroom and then had a fall in the hallway her son witnessed this. Directly after the fall she was awake and oriented feels she may have briefly lost consciousness. She was brought to the ER where she sustained a left wrist fracture had this splinted and was sent home on Ultram which she's taken in the past. Her son works and is on home all the time reportedly one day prior to admission she was in her usual state of health though slightly sleepy she is instructed typically wear CPAP at home at night which she believes she does although she is not comfortable with the mask. The patient today was very difficult to arouse her son was trying to take her to her orthopedic appointment for her wrist when she cannot be woken up embolus was some initial brought to the ER and found to be in the respiratory failure as above. BiPAP was placed she is improved somewhat she is also found to have changes of congestive heart failure on her chest x-ray is unclear whether this is systolic diastolic are both. The patient be placed in the ICU overnight as her respiratory status is tenuous and she does have a history of chronic respiratory failure given the diagnosis of COPD taking chronic medications for it Past Medical/Surgical History Medical Problems: (1) Body mass index 30+ - obesity Status: Chronic (2) Chr obstructive pulmonary disease w/ acute lower respiratory infxn Status: Chronic (3) Chronic renal impairment Status: Chronic (4) Essential hypertension Status: Chronic (5) GENERAL OSTEOARTHROSIS Status: Chronic (6) Plantar fasciitis Status: Chronic Family History Cancer Diabetes mellitus Heart disease Hypertension Kidney disease Lung disease Social History Smoking Status: Former Smoker Alcohol Use: none Drug Use: none Marital Status: single Housing status: lives alone Occupational Status: retired Immunizations History of Influenza Vaccine: N/A History of Tetanus Vaccine?: Unknown History of Pneumococcal: Unknown History of Hepatitis B Vaccine: Unknown Multi-Drug Resistant Organisms History of MDRO: No Allergies Coded Allergies: Codeine (Verified Adverse Reaction, Mild, SHAKING, 11/06/17) Oxycodone (Verified Adverse Reaction, Unknown, rash/shakes, 11/06/17) Home Medications Scheduled Budesonide Soln (Pulmicort Respules 0.5MG/2ML), 1 VIAL NEB BID Docusate Sodium (Docusate Sodium), 1 CAP PO BID Ergocalciferol (Vitamin D 12620 Unit), 1 TAB PO WK Furosemide (Lasix), 40 MG PO DAILY Home O2 Therapy (Oxygen), 4 LITERS NA CONTINOUS Ipratropium [place] (Atrovent 0.02% Soln), 1 UNIT INH QID Methocarbamol (Methocarbamol), 750 MG PO QID Omeprazole (Prilosec), 40 MG PO DAILY [Utibron], 1 PUFF PO BID Scheduled PRN Albuterol Hfa (Ventolin Hfa), 2-4 PUFFS INH Q6H PRN for Shortness of Breath Albuterol Sulf (Albuterol Sulfate), 1 UNIT NEB Q4 PRN for Shortness of Breath Polyethylene (Miralax Powder Packet), 17 GM PO DAILY PRN for Constipation Tramadol (Ultram), 50 MG PO Q4H PRN for Pain Tramadol (Ultram), 50 MG PO Q8H PRN for Pain Review of Systems Review of systems is difficult to obtain as the patient is slightly lethargic from her hypercapnia also wearing a BiPAP mask Physical Exam Vital Signs Date Time Temp Pulse Resp B/P (MAP) Pulse Ox O2 Delivery O2 Flow Rate FiO2 11/06/17 14:02 83 95 45 11/06/17 13:46 79 11/06/17 13:18 36.6 79 18 157/76 95 Nasal Cannula 6.0 11/06/17 11:03 84 11/06/17 10:55 36.5 87 18 149/55 Nasal Cannula 6.0 General Appearance: + moderate distress, + obese Head: normocephalic, atraumatic Eyes: normal inspection, sclerae normal Respiratory/Chest: + decreased breath sounds, + accessory muscle use, + rales Cardiovascular: regular rate, rhythm, no murmur Abdomen/GI: non tender, soft, + pertinent finding (this is a difficult exam due to her obesity) Extremities/Musculoskelatal: + pedal edema, + pertinent finding (again changes of chronic venous stasis to her lower legs) Neurologic/Psych: + depressed affect, + disoriented Skin: + pertinent finding (she has a scaly erythematous circumferential rash to her lower legs) Diagnostics Laboratory Results Results Past 24 Hours Test 11/06/17 11:30 11/06/17 12:37 11/06/17 13:06 11/06/17 13:20 Range/Units White Blood Count 7.88 4.8-10.8 K/uL Red Blood Count 4.14 4.2-5.4 M/uL Hemoglobin 12.0 12.0-16.0 g/dL Hematocrit 39.5 37-47 % Mean Corpuscular Volume 95.4 80-100 fL Mean Corpuscular Hemoglobin 29.0 25-34 pg Mean Corpuscular Hemoglobin Concent 30.4 32-36 g/dl Platelet Count 119 130-400 K/uL Mean Platelet Volume 10.4 7.4-10.4 fL Neutrophils (%) (Auto) 78.8 % Lymphocytes (%) (Auto) 10.3 % Monocytes (%) (Auto) 8.0 % Eosinophils (%) (Auto) 0.8 % Basophils (%) (Auto) 0.1 % Neutrophils # (Auto) 6.21 1.4-6.5 K/uL Lymphocytes # (Auto) 0.81 1.2-3.4 K/uL Monocytes # (Auto) 0.63 0.11-0.59 K/uL Eosinophils # (Auto) 0.06 0-0.5 K/uL Basophils # (Auto) 0.01 0-0.2 K/uL RDW Standard Deviation 50.0 36.4-46.3 fL RDW Coefficient of Variation 14.4 11.5-14.5 % Immature Granulocyte % (Auto) 2.0 % Immature Granulocyte # (Auto) 0.16 0.00-0.02 K/uL Nucleated RBC Absolute Count (auto) 0.06 0-0 K/uL Nucleated Red Blood Cells % 0.7 % Prothrombin Time 9.2 9.0-12.0 SECONDS Prothromb Time International Ratio 0.9 0.9-1.1 Activated Partial Thromboplast Time 24.6 21.0-31.0 SECONDS Partial Thromboplastin Ratio 0.9 Sodium Level 134 136-145 mmol/L Potassium Level 4.9 3.5-5.1 mmol/L Chloride Level 89 98-107 mmol/L Carbon Dioxide Level 45 21-32 mmol/L Anion Gap -1.0 3-11 mmol/L Blood Urea Nitrogen 22 7-18 mg/dl Creatinine 1.18 0.60-1.20 mg/dl Est Creatinine Clear Calc Drug Dose 66.2 ml/min Estimated GFR () 57.2 Estimated GFR (Non- 49.4 BUN/Creatinine Ratio 18.7 10-20 Random Glucose 184 70-99 mg/dl Calcium Level 8.9 8.5-10.1 mg/dl Total Bilirubin 0.3 0.2-1 mg/dl Aspartate Amino Transf (AST/SGOT) 15 15-37 U/L Alanine Aminotransferase (ALT/SGPT) 17 12-78 U/L Alkaline Phosphatase 101 45-117 U/L Total Protein 7.1 6.4-8.2 gm/dl Albumin 3.2 3.4-5.0 gm/dl Globulin 3.9 2.5-4.0 gm/dl Albumin/Globulin Ratio 0.8 0.9-2 Influenza Type A (RT-PCR) Neg for Influ A NEG Influenza Type A Antigen NEG Influenza Type B Antigen NEG Influenza Type B (RT-PCR) Neg for Influ B NEG Urine Color DK YELLOW Urine Appearance CLEAR CLEAR Urine pH 5.0 4.5-7.5 Urine Specific [place] 1.026 1.000-1.030 Urine Protein 1+ NEG Urine Glucose (UA) NEG NEG Urine Ketones NEG NEG Urine Occult Blood NEG NEG Urine Nitrite NEG NEG Urine Bilirubin NEG NEG Urine Urobilinogen NEG NEG Urine Leukocyte Esterase NEG NEG Urine WBC (Auto) 1-5 0-5 /hpf Urine RBC (Auto) 0-4 0-4 /hpf Urine Hyaline Casts (Auto) 10-30 0-5 /lpf Urine Epithelial Cells (Auto) >30 0-5 /lpf Urine Bacteria (Auto) NEG NEG Urine Renal Epithelial Cells 0-5 /lpf Urine Pathogenic Casts 0 /lpf Creatine Kinase MB Ratio 0-3.0 Test 11/06/17 13:32 Range/Units Arterial Blood pH 7.13 7.35-7.45 Arterial Blood Partial Pressure CO2 138 35-46 mmHg Arterial Blood Partial Pressure O2 55 80-95 mm/Hg Arterial Blood HCO3 44 19-24 mmol/L Arterial Blood Oxygen Saturation 85.2 90-95 % Arterial Blood Base Excess 10.4 -9-1.8 mEq/L Arterial Blood Gas Delivery 6 L Berto Test POS POS Diagnostic Radiology CT head was unremarkable for acute changes other (chest x-ray suggests congestive changes) Normal EKG Impression Assessment and Plan 61-year-old morbidly obese female here with hypercapnic acute respiratory failure. For the hypercapnic acute respiratory failure the patiently maintain on BiPAP we 'll check an ABG at 1800 hrs. she'll be attended to by pulmonary critical care, the patient also has Robaxin listed on her medicine reconciliation list this could have a direct impact in her depressed respiratory state Chronic respiratory failure COPD the patient will be placed upon nebulized ipratropium Atrovent and intravenous Solu-Medrol Heart failure undetermined systolic versus diastolic the patient be given intravenous Lasix and a Degroot catheter be placed and echo cardiac exam is pending as well as troponin will be checked in the morning Wrist fracture will continue the splints will have notification of Dr. Ata Boyle would judiciously use pain medication DVT prevention be heparin therapy the patient in one plan past was on warfarin although the son cannot tell me why Patient is a full code Level of Care Critical Care Resuscitation Status FULL RESUSCITATION VTE Prophylaxis VTE Risk Assessment Done? Y/N: Yes Risk Level: Moderate Given or contraindicated: Unfractionated heparin SQ
[2017-11-06 15:19] LABS: CKMB 4.1 ng/ml (0.5-3.6)
[2017-11-06] MEDS ORDERED: ALBUT/IPRATROP 3MG/0.5MG NEB 3 ML VIAL INH PRN (16:00)
[2017-11-06] MEDS: ALBUT/IPRATROP 3MG/0.5MG NEB 3 ML VIAL INH SCH ×3 (16:00→23:47)
[2017-11-06] MEDS ORDERED: FUROSEMIDE 40 MG/4 ML VIAL IV STA (16:02)
--- NOTE | 2017-11-06 16:19 | Critical Care Consultation ---
Critical Care Consultation Date of Consultation: Nov 06, 2017. Attending Physician: Jefferson Pena M.D. Reason for Consultation: Respiratory failure History of Present Illness This is a 61 year-old female with h/o COPD, on home oxygen, morbid obesity, on nocturnal BIPAP (not too compliant), that suffered a left Colles fracture, was found to be lethargic today. She received Tramadol and Tylenol for the pain, her left arm is in a splint. She was due to see her orthopaedist today, however , her son found her to bee too lethargic. In ED she was poorly responsive, ABG was 7.13/138/55. Was started on BIPAP with gradual improvement in her mental status, now she is more verbal, easily arousable, but still not at baseline She had prior episodes per son, never intubated Past Medical/Surgical History COPD, on home O2 Morbid obesity HTN Family History Cancer Diabetes mellitus Heart disease Hypertension Kidney disease Lung disease Social History Smoking Status: Former Smoker Alcohol Use: none Drug Use: none Marital Status: single Housing Status: unknown Occupation Status: retired Allergies Coded Allergies: Codeine (Verified Adverse Reaction, Mild, SHAKING, 11/06/17) Oxycodone (Verified Adverse Reaction, Unknown, rash/shakes, 11/06/17) Home Medications Scheduled Budesonide Soln (Pulmicort Respules 0.5MG/2ML), 1 VIAL NEB BID Docusate Sodium (Docusate Sodium), 1 CAP PO BID Ergocalciferol (Vitamin D 22567 Unit), 1 TAB PO WK Furosemide (Lasix), 40 MG PO DAILY Home O2 Therapy (Oxygen), 4 LITERS NA CONTINOUS Ipratropium Piru (Atrovent 0.02% Soln), 1 UNIT INH QID Methocarbamol (Methocarbamol), 750 MG PO QID Omeprazole (Prilosec), 40 MG PO DAILY [Utibron], 1 PUFF PO BID Scheduled PRN Albuterol Hfa (Ventolin Hfa), 2-4 PUFFS INH Q6H PRN for Shortness of Breath Albuterol Sulf (Albuterol Sulfate), 1 UNIT NEB Q4 PRN for Shortness of Breath Polyethylene (Miralax Powder Packet), 17 GM PO DAILY PRN for Constipation Tramadol (Ultram), 50 MG PO Q4H PRN for Pain Tramadol (Ultram), 50 MG PO Q8H PRN for Pain Current Inpatient Medications Current Inpatient Medications Medications (Trade) Dose Ordered Sig/Monse Route Start Time Stop Time Status Last Admin Dose Admin Docusate Sodium (coLACE CAP) 100 mg BID PO 11/06/17 21:00 12/06/17 20:59 Pantoprazole Sodium (Protonix Tab) 40 mg DAILY PO 11/07/17 09:00 12/07/17 08:59 Furosemide 40 mg/ Syringe 4 ml @ 4 mls/min DAILY IV 11/07/17 09:00 12/07/17 08:59 Albuterol/ Ipratropium (Duoneb) 3 ml QIDR INH 11/06/17 16:00 12/06/17 15:59 Albuterol/ Ipratropium (Duoneb) 3 ml Q2R PRN INH 11/06/17 16:00 12/06/17 15:59 Heparin Sodium (Porcine) (Heparin Sq 5000 Unit/0.5ml) 5,000 unit Q12H SQ 11/06/17 21:00 12/06/17 20:59 Acetaminophen (Tylenol Tab) 650 mg Q4H PRN PO 11/06/17 15:00 12/06/17 14:59 Lorazepam (Ativan Tab) 0.5 mg Q4H PRN PO 11/06/17 15:00 12/06/17 14:59 Ranitidine HCl (zANTac TAB) 150 mg BID PO 11/06/17 21:00 12/06/17 20:59 Morphine Sulfate (MoRPHine SULFATE INJ) 2 mg Q2H PRN IV 11/06/17 15:00 11/20/17 14:59 Miscellaneous Information (Icu Protocol For Hyperglycemia) 1 ea PRN PRN N/A 11/06/17 15:00 11/08/17 14:59 Methylprednisolone Sodium Succinate 40 mg/Syringe 0.64 ml @ 1.5 mls/min BID IV 11/06/17 21:00 12/06/17 20:59 Nitroglycerin (Nitroglycerin 2% Oint) 1 inch Q6 EXT 11/06/17 18:00 11/07/17 12:00 Review of Systems Unable to obtain secondary to lethargy Physical Exam Date Time Temp Pulse Resp B/P (MAP) Pulse Ox O2 Delivery O2 Flow Rate FiO2 11/06/17 15:16 75 18 152/56 90 BiPAP 11/06/17 14:02 83 95 45 11/06/17 13:46 79 11/06/17 13:18 36.6 79 18 157/76 95 Nasal Cannula 6.0 11/06/17 11:03 84 11/06/17 10:55 36.5 87 18 149/55 Nasal Cannula 6.0 General Appearance: no apparent distress, obese Eyes: PERRLA Neck: other (Thick neck) Respiratory: other (Distant breath sounds) Cardiovasular: other (Distant heart sounds) Abdomen: non tender Upper Extremities: other (Left forearm in splint) Lower Extremities: edema Neuro: lethargic, disoriented, confused, other (No foca weakness, follows simple commands) Laboratory Results Last 24 Hours Test 11/06/17 11:30 11/06/17 12:37 11/06/17 13:06 11/06/17 13:32 White Blood Count 7.88 K/uL Red Blood Count 4.14 M/uL Hemoglobin 12.0 g/dL Hematocrit 39.5 % Mean Corpuscular Volume 95.4 fL Mean Corpuscular Hemoglobin 29.0 pg Mean Corpuscular Hemoglobin Concent 30.4 g/dl Platelet Count 119 K/uL Mean Platelet Volume 10.4 fL Neutrophils (%) (Auto) 78.8 % Lymphocytes (%) (Auto) 10.3 % Monocytes (%) (Auto) 8.0 % Eosinophils (%) (Auto) 0.8 % Basophils (%) (Auto) 0.1 % Neutrophils # (Auto) 6.21 K/uL Lymphocytes # (Auto) 0.81 K/uL Monocytes # (Auto) 0.63 K/uL Eosinophils # (Auto) 0.06 K/uL Basophils # (Auto) 0.01 K/uL RDW Standard Deviation 50.0 fL RDW Coefficient of Variation 14.4 % Immature Granulocyte % (Auto) 2.0 % Immature Granulocyte # (Auto) 0.16 K/uL Nucleated RBC Absolute Count (auto) 0.06 K/uL Nucleated Red Blood Cells % 0.7 % Prothrombin Time 9.2 SECONDS Prothromb Time International Ratio 0.9 Activated Partial Thromboplast Time 24.6 SECONDS Partial Thromboplastin Ratio 0.9 Sodium Level 134 mmol/L Potassium Level 4.9 mmol/L Chloride Level 89 mmol/L Carbon Dioxide Level 45 mmol/L Anion Gap -1.0 mmol/L Blood Urea Nitrogen 22 mg/dl Creatinine 1.18 mg/dl Est Creatinine Clear Calc Drug Dose 66.2 ml/min Estimated GFR () 57.2 Estimated GFR (Non- 49.4 BUN/Creatinine Ratio 18.7 Random Glucose 184 mg/dl Calcium Level 8.9 mg/dl Total Bilirubin 0.3 mg/dl Aspartate Amino Transf (AST/SGOT) 15 U/L Alanine Aminotransferase (ALT/SGPT) 17 U/L Alkaline Phosphatase 101 U/L Total Creatine Kinase 99 U/L Creatine Kinase MB 4.1 ng/ml Creatine Kinase MB Ratio 4.1 Troponin I 0.028 ng/ml Pro-B-Type Natriuretic Peptide 3030 pg/ml Total Protein 7.1 gm/dl Albumin 3.2 gm/dl Globulin 3.9 gm/dl Albumin/Globulin Ratio 0.8 Influenza Type A (RT-PCR) Neg for Influ A Influenza Type A Antigen Influenza Type B Antigen Influenza Type B (RT-PCR) Neg for Influ B Urine Color DK YELLOW Urine Appearance CLEAR Urine pH 5.0 Urine Specific [place] 1.026 Urine Protein 1+ Urine Glucose (UA) NEG Urine Ketones NEG Urine Occult Blood NEG Urine Nitrite NEG Urine Bilirubin NEG Urine Urobilinogen NEG Urine Leukocyte Esterase NEG Urine WBC (Auto) 1-5 /hpf Urine RBC (Auto) 0-4 /hpf Urine Hyaline Casts (Auto) 10-30 /lpf Urine Epithelial Cells (Auto) >30 /lpf Urine Bacteria (Auto) NEG Urine Renal Epithelial Cells /lpf Urine Pathogenic Casts /lpf Arterial Blood pH 7.13 Arterial Blood Partial Pressure CO2 138 mmHg Arterial Blood Partial Pressure O2 55 mm/Hg Arterial Blood HCO3 44 mmol/L Arterial Blood Oxygen Saturation 85.2 % Arterial Blood Base Excess 10.4 mEq/L Arterial Blood Gas Delivery 6 L Berto Test POS Diagnostic Results CXR: FINDINGS: Mild cardiomegaly. Tortuous thoracic aorta. Prominent pulmonary vasculature. Mild chronic bibasilar interstitial change. CT head: FINDINGS: No acute intracranial hemorrhage, midline shift, intracranial mass, hydrocephalus, territorial ischemia or abnormal extra-axial collection. Exam is mildly motion degraded. The calvarium is intact. The paranasal sinuses, mastoid air cells, and middle ear cavities are clear. Hypoplasia of the frontal sinuses. IMPRESSION: No acute intracranial abnormality. Assessment & Plan 61 year old female with morbid obesity, advanced COPD, presents with acute on chronic hypercarbic respiratory failure, with CO2 narcosis Plan: Continue BIPAP therapy for now. Repeat ABG tonight She must use BIPAP every single night, as well as during the day when she naps Start empiric steroids for now Bronchodilators Avoid sedating agents Ortho to follow up on the fracture. Per records, she also has an ulnar styloid fracture DVT prophylaxis: SC heparin
[2017-11-06] MEDS ORDERED: INFLUENZA ADMINISTRATION CHARGE ONE (18:15)
[2017-11-06] MEDS ORDERED: INFLUENZA VIRUS QUAD VACCINE 0.5 ML SYR IM. ONE (18:15)
[2017-11-06] MEDS: NITROGLYCERIN OINT 2% 1GM PACKET EXT SCH ×2 (18:18→18:40)
[2017-11-06] MEDS ORDERED: FUROSEMIDE 40 MG/4 ML VIAL ONE (18:21)
--- NOTE | 2017-11-06 18:41 | CONSULTATION REPORT ---
DATE OF CONSULTATION: 11/06/2017 CHIEF COMPLAINT: Left wrist fracture. HISTORY OF PRESENT ILLNESS: Sheri is a 61-year-old right hand dominant female. She injured her left wrist 2 days ago. Her son is here with her today and much of the history is obtained with her son. Apparently, she had come out of the bathroom and had a fall, which was witnessed by her son. She was brought to the Emergency Room, x-rays were obtained of her left wrist and she was found to have a displaced distal radius fracture. She underwent attempted closed reduction in the Emergency Room and splinting. She was readmitted today with acute respiratory failure. She does have a history of COPD. She denies any other injuries from the fall. No other complaints at this time. PAST MEDICAL HISTORY, FAMILY HISTORY, SOCIAL HISTORY, ALLERGIES AND MEDICATIONS: All reviewed in the chart and from her admission H&P. Please refer to the admission H&P for completeness. PHYSICAL EXAMINATION: GENERAL: Today, she is receiving a breathing treatment. She is alert, in no distress. EXTREMITIES: On examination of the wrist today. She has a splint intact to the left upper extremity, appears to be fitting appropriately. She has some swelling of her fingers. She is able to gently flex and extend her fingers. She has brisk refill. She does have pain with motion of her fingers. We did not remove the splint today. X-RAY FINDINGS: X-rays were reviewed which were from her previous visit on 11/04/2017. X-ray show a comminuted displaced distal radius fracture with intraarticular extension. It is angulated with apex volar. Post-reduction x-rays were reviewed as well which again demonstrated the left distal radius fracture. There is still some angulation to it, apex volar but with somewhat improved alignment. IMPRESSION: Left displaced comminuted intra-articular distal radius fracture. PLAN: She was seen and examined by Dr. Berumen today as well. Her son is with her today and we discussed her injury and treatment for this. At this time, we recommended continued conservative management with the splint and an arm sling. With her medical history, she is not a real good surgical candidate and this can be treated nonoperatively. The reduction on her x-rays is not perfect, but it has acceptable alignment at this time. We did recommend continuing to follow this weekly with x-rays as well and we will continue to follow her while she is here in the hospital. We did help put on her sling and recommend that she continues using the arm sling as well. We left her splint intact. Again, we should plan to see her back in 1 week for repeat x-rays of the left wrist. Thank you for this consult. Please call with any further questions. GLADIS
[2017-11-06] MEDS: DOCUSATE SODIUM 100 MG CAP PO SCH (20:52)
[2017-11-06] MEDS ORDERED: HEPARIN SOD 5000 UNIT/0.5 ML CARP SQ SCH (21:00)
[2017-11-06] MEDS ORDERED: METHYLPREDNISOLONE IV 40 MG in SYRINGE 0 ML IV SCH (21:00)
[2017-11-06] MEDS ORDERED: RANITIDINE HCL 150 MG TAB PO SCH (21:00)
[2017-11-07] VITALS (31 sets, daily range): BP systolic 78–176; BP diastolic 45–98; PULSE 81–104; TEMP 36.9–37.4; O2SAT 89–100
[2017-11-07 00:16] LABS: CALCIUM 8.9 mg/dl (8.5-10.1); CREATININE 0.92 mg/dl (0.60-1.20)
[2017-11-07] MEDS: NITROGLYCERIN 2% OINTMENT 30GM TUBE EXT SCH ×2 (00:21→06:31)
[2017-11-07 05:02] LABS: HEMOGLOBIN 11.5 g/dL (12.0-16.0); MEAN CELL VOLUME 93.6 fL (80-100); MEAN CORPUSCULAR HEMOGLOBIN 28.3 pg (25-34); MEAN CORPUSCULAR HGB CONC 30.3 g/dl (32-36); MEAN PLATELET VOLUME 9.9 fL (7.4-10.4); NUCLEATED RED BLOOD CELL ABS 0.05 K/uL (0-0); PLATELET COUNT 113 K/uL (130-400); RED CELL DISTRIBUTION WIDTH CV 14.2 % (11.5-14.5); RED CELL DISTRIBUTION WIDTH SD 48.5 fL (36.4-46.3); WHITE BLOOD COUNT 6.87 K/uL (4.8-10.8)
[2017-11-07 05:30] LABS: CREATININE 0.8 mg/dl (0.60-1.20); POTASSIUM 5.2 mmol/L (3.5-5.1)
--- NOTE | 2017-11-07 07:15 | DIAGNOSTIC IMAGING REPORT ---
CHEST ONE VIEW PORTABLE CLINICAL HISTORY: f/u dyspnea COMPARISON STUDY: 11/06/2017 FINDINGS: Moderate stable cardia megaly. Persistent prominence of pulmonary vasculature. Unchanging findings of congestive failure. Superimposed atelectasis left base. IMPRESSION: Congestive heart failure. No change from the prior study. The above report was generated using voice recognition software. It may contain grammatical, syntax or spelling errors. Electronically signed by: Naren Madrid M.D. 11/07/2017 7:13 AM Dictated Date/Time: 11/07/2017 7:12 AM
[2017-11-07] MEDS: ALBUT/IPRATROP 3MG/0.5MG NEB 3 ML VIAL INH SCH ×4 (07:19→19:30)
[2017-11-07] MEDS ORDERED: PERFLUTREN LIPID MICROSPHERE (DEFINITY) IV ONE (07:43)
[2017-11-07] MEDS: DOCUSATE SODIUM 100 MG CAP PO SCH ×2 (08:38→22:50)
[2017-11-07] MEDS: PANTOprazole SOD 40 MG TAB PO SCH (08:38)
[2017-11-07] MEDS: FUROSEMIDE INJ 40 MG in SYRINGE 0 ML IV SCH (08:38)
[2017-11-07] MEDS: INSULIN ASPART 100 UNITS/ML 3 ML PEN SC SCH ×4 (08:42→21:00)
[2017-11-07] MEDS ORDERED: INSULIN GLARGINE SOLOSTAR 100 UNITS/ML 3 ML PEN SC SCH (09:00)
--- NOTE | 2017-11-07 09:18 | Critical Care Progress Note ---
Critical Care Progress Note Date of Service Nov 07, 2017. Attending Dr. Cox Subjective More awake this morning, eating breakfast Slept with BIPAP overnight Objective General Appearance: no apparent distress, obese, awakw Eyes: PERRLA Neck: Thick neck Respiratory: Distant breath sounds Cardiovascular: Distant heart sounds Abdomen: non tender Extremities: Left forearm in splint, Lower extremities edema Neuro: AAO x 3, but with occasional confusion Assessment & Plan 61 year old female with morbid obesity, advanced COPD, presents with acute on chronic hypercarbic respiratory failure, with CO2 narcosis Plan: Continue nocturnal BIPAP therapy for now. ABG still with acute on chronic hypercapnia, but significantly improved, pH 7.28 this AM, pCO2 103. She must use BIPAP every single night, as well as during the day when she naps May change iv steroids to oral steroids Bronchodilators Avoid sedating agents Ortho consult noted. Not an operative candidate DVT prophylaxis: SC heparin Monitor in the ICU today as well, still having acute respiratory failure Critical care time spent with the patient, reviewing chart, discussing with consultants, greater than 30 minutes Consults & Procedures Consultants: Ortho - Dr Berumen Data Medications: Current Inpatient Medications Medications (Trade) Dose Ordered Sig/Monse Route Start Time Stop Time Status Last Admin Dose Admin Docusate Sodium (coLACE CAP) 100 mg BID PO 11/06/17 21:00 12/06/17 20:59 11/07/17 08:38 100 MG Pantoprazole Sodium (Protonix Tab) 40 mg DAILY PO 11/07/17 09:00 12/07/17 08:59 11/07/17 08:38 40 MG Furosemide 40 mg/ Syringe 4 ml @ 4 mls/min DAILY IV 11/07/17 09:00 12/07/17 08:59 11/07/17 08:38 4 MLS/MIN Albuterol/ Ipratropium (Duoneb) 3 ml QIDR INH 11/06/17 16:00 12/06/17 15:59 11/07/17 07:19 3 ML Albuterol/ Ipratropium (Duoneb) 3 ml Q2R PRN INH 11/06/17 16:00 12/06/17 15:59 Acetaminophen (Tylenol Tab) 650 mg Q4H PRN PO 11/06/17 15:00 12/06/17 14:59 Morphine Sulfate (MoRPHine SULFATE INJ) 2 mg Q2H PRN IV 11/06/17 15:00 11/20/17 14:59 11/06/17 19:57 2 MG Miscellaneous Information (Icu Protocol For Hyperglycemia) 1 ea PRN PRN N/A 11/06/17 15:00 11/08/17 14:59 Nitroglycerin (Nitroglycerin 2% Oint) 1 inch Q6 EXT 11/07/17 00:00 12/07/17 00:00 11/07/17 06:31 1 INCH Prednisone (PredniSONE TAB) 40 mg Taper DAILY@0900 PO 11/07/17 09:00 11/15/17 08:59 Insulin Aspart (novoLOG ASPART) SLIDING SCALE ACHS SC 11/07/17 08:00 12/07/17 07:59 11/07/17 08:42 4 UNITS Heparin Sodium (Porcine) (Heparin Sq 5000 Unit/0.5ml) 5,000 unit Q8@0000,0800,1600 SQ 11/07/17 09:00 12/07/17 08:59 Insulin Glargine (Lantus Solostar Pen) 15 units BID SC 11/07/17 09:00 12/07/17 08:59 11/07/17 08:43 15 UNITS Vital Signs: Date Time Temp Pulse Resp B/P (MAP) Pulse Ox O2 Delivery O2 Flow Rate FiO2 11/07/17 09:01 97 22 140/59 (86) 91 Nasal Cannula 6.0 11/07/17 08:01 37.4 98 25 144/74 (97) 91 Nasal Cannula 6.0 11/07/17 07:20 93 22 92 Mask 6.0 11/07/17 07:00 95 18 143/98 (113) 91 Oxymask 6.0 11/07/17 05:01 93 25 112/74 (87) 98 BiPAP 50 11/07/17 04:05 91 26 145/91 (109) 97 BiPAP 50 11/07/17 04:02 37.0 92 23 78/46 (57) 97 BiPAP 50 11/07/17 04:00 BiPAP 50 11/07/17 03:58 86 97 50 11/07/17 03:05 86 25 148/61 (90) 97 BiPAP 45 11/07/17 02:01 84 29 118/90 (99) 93 BiPAP 45 2/6/18 01:05 88 27 156/86 (109) 97 BiPAP 50 2/6/18 00:01 BiPAP 50 2/6/18 00:01 36.9 81 28 155/75 (101) 100 BiPAP 50 2/5/18 23:57 79 24 172/74 (106) 100 BiPAP 50 2/5/18 23:48 72 96 50 2/5/18 23:47 72 21 96 BiPAP/CPAP 50 2/5/18 23:01 77 29 141/121 (128) 94 BiPAP 50 2/5/18 22:36 81 26 92/57 (69) 96 BiPAP 50 2//18 21:10 36.9 79 22 147/93 (111) 93 BiPAP 50 2//18 20:42 85 98 45 2/5/18 20:20 81 22 135/87 (103) 97 BiPAP 45 2//18 20:00 BiPAP 45 //18 19:24 79 26 90 BiPAP/CPAP 45 //18 19:01 78 30 145/112 (123) 91 BiPAP 45 2//18 18:00 79 16 111/54 (73) 96 BiPAP 2//18 16:28 84 97 45 //18 16:15 36.6 79 18 154/46 95 BiPAP 45 //18 15:16 75 18 152/56 90 BiPAP //18 14:02 83 95 45 //18 13:46 79 11/06/17 13:18 36.6 79 18 157/76 95 Nasal Cannula 6.0 11/06/17 11:03 84 11/06/17 10:55 36.5 87 18 149/55 Nasal Cannula 6.0 Laboratory Results: Last 24 Hours Test 11/06/17 11:30 11/06/17 12:37 11/06/17 13:06 11/06/17 13:32 White Blood Count 7.88 K/uL Red Blood Count 4.14 M/uL Hemoglobin 12.0 g/dL Hematocrit 39.5 % Mean Corpuscular Volume 95.4 fL Mean Corpuscular Hemoglobin 29.0 pg Mean Corpuscular Hemoglobin Concent 30.4 g/dl Platelet Count 119 K/uL Mean Platelet Volume 10.4 fL Neutrophils (%) (Auto) 78.8 % Lymphocytes (%) (Auto) 10.3 % Monocytes (%) (Auto) 8.0 % Eosinophils (%) (Auto) 0.8 % Basophils (%) (Auto) 0.1 % Neutrophils # (Auto) 6.21 K/uL Lymphocytes # (Auto) 0.81 K/uL Monocytes # (Auto) 0.63 K/uL Eosinophils # (Auto) 0.06 K/uL Basophils # (Auto) 0.01 K/uL RDW Standard Deviation 50.0 fL RDW Coefficient of Variation 14.4 % Immature Granulocyte % (Auto) 2.0 % Immature Granulocyte # (Auto) 0.16 K/uL Nucleated RBC Absolute Count (auto) 0.06 K/uL Nucleated Red Blood Cells % 0.7 % Prothrombin Time 9.2 SECONDS Prothromb Time International Ratio 0.9 Activated Partial Thromboplast Time 24.6 SECONDS Partial Thromboplastin Ratio 0.9 Sodium Level 134 mmol/L Potassium Level 4.9 mmol/L Chloride Level 89 mmol/L Carbon Dioxide Level 45 mmol/L Anion Gap -1.0 mmol/L Blood Urea Nitrogen 22 mg/dl Creatinine 1.18 mg/dl Est Creatinine Clear Calc Drug Dose 66.2 ml/min Estimated GFR () 57.2 Estimated GFR (Non- 49.4 BUN/Creatinine Ratio 18.7 Random Glucose 184 mg/dl Calcium Level 8.9 mg/dl Total Bilirubin 0.3 mg/dl Aspartate Amino Transf (AST/SGOT) 15 U/L Alanine Aminotransferase (ALT/SGPT) 17 U/L Alkaline Phosphatase 101 U/L Total Creatine Kinase 99 U/L Creatine Kinase MB 4.1 ng/ml Creatine Kinase MB Ratio 4.1 Troponin I 0.028 ng/ml Pro-B-Type Natriuretic Peptide 3030 pg/ml Total Protein 7.1 gm/dl Albumin 3.2 gm/dl Globulin 3.9 gm/dl Albumin/Globulin Ratio 0.8 Influenza Type A (RT-PCR) Neg for Influ A Influenza Type A Antigen Influenza Type B Antigen Influenza Type B (RT-PCR) Neg for Influ B Urine Color DK YELLOW Urine Appearance CLEAR Urine pH 5.0 Urine Specific [place] 1.026 Urine Protein 1+ Urine Glucose (UA) NEG Urine Ketones NEG Urine Occult Blood NEG Urine Nitrite NEG Urine Bilirubin NEG Urine Urobilinogen NEG Urine Leukocyte Esterase NEG Urine WBC (Auto) 1-5 /hpf Urine RBC (Auto) 0-4 /hpf Urine Hyaline Casts (Auto) 10-30 /lpf Urine Epithelial Cells (Auto) >30 /lpf Urine Bacteria (Auto) NEG Urine Renal Epithelial Cells /lpf Urine Pathogenic Casts /lpf Arterial Blood pH 7.13 Arterial Blood Partial Pressure CO2 138 mmHg Arterial Blood Partial Pressure O2 55 mm/Hg Arterial Blood HCO3 44 mmol/L Arterial Blood Oxygen Saturation 85.2 % Arterial Blood Base Excess 10.4 mEq/L Arterial Blood Gas Delivery 6 L Berto Test POS Test 11/06/17 19:12 11/06/17 23:33 11/06/17 23:41 11/07/17 02:48 Bedside Glucose 97 mg/dl Arterial Blood pH 7.22 7.28 Arterial Blood Partial Pressure CO2 114 mmHg 103 mmHg Arterial Blood Partial Pressure O2 92 mm/Hg 64 mm/Hg Arterial Blood HCO3 46 mmol/L 47 mmol/L Arterial Blood Oxygen Saturation 95.4 % 91.6 % Arterial Blood Base Excess 13.8 mEq/L 15.6 mEq/L Arterial Blood Gas Delivery 50% 45% BIPAP Berto Test POS POS Potassium Level 5.1 mmol/L mmol/L Sodium Level 134 mmol/L Chloride Level 88 mmol/L Carbon Dioxide Level 44 mmol/L Anion Gap 2.0 mmol/L Blood Urea Nitrogen 22 mg/dl Creatinine 0.92 mg/dl Est Creatinine Clear Calc Drug Dose 81.8 ml/min Estimated GFR () 77.3 Estimated GFR (Non- 66.7 BUN/Creatinine Ratio 24.0 Random Glucose 148 mg/dl Calcium Level 8.9 mg/dl Test 11/07/17 04:33 White Blood Count 6.87 K/uL Red Blood Count 4.06 M/uL Hemoglobin 11.5 g/dL Hematocrit 38.0 % Mean Corpuscular Volume 93.6 fL Mean Corpuscular Hemoglobin 28.3 pg Mean Corpuscular Hemoglobin Concent 30.3 g/dl RDW Standard Deviation 48.5 fL RDW Coefficient of Variation 14.2 % Platelet Count 113 K/uL Mean Platelet Volume 9.9 fL Nucleated RBC Absolute Count (auto) 0.05 K/uL Nucleated Red Blood Cells % 0.8 % Sodium Level 135 mmol/L Potassium Level 5.2 mmol/L Chloride Level 88 mmol/L Carbon Dioxide Level 48 mmol/L Anion Gap -1.0 mmol/L Blood Urea Nitrogen 21 mg/dl Creatinine 0.80 mg/dl Est Creatinine Clear Calc Drug Dose 94.0 ml/min Estimated GFR () 91.6 Estimated GFR (Non- 79.0 BUN/Creatinine Ratio 26.4 Random Glucose 169 mg/dl Calcium Level 9.0 mg/dl Magnesium Level 2.2 mg/dl Troponin I 0.031 ng/ml
[2017-11-07] MEDS: HEPARIN SOD 5000 UNIT/0.5 ML CARP SQ SCH ×2 (10:32→17:33)
[2017-11-07] MEDS ORDERED: PHARMACY GLYCEMIC MGMT CONSULT PRN (11:30)
--- NOTE | 2017-11-07 11:50 | Pharmacy Progress Note ---
Glycemic Control Intl Consult Date of Service Nov 07, 2017. Scope Glycemic Pharmacist consulted by Dr Cox on 11/07/17 for glycemic control and to write orders per [facility] inpatient glycemic control protocol Objective Weight (Kilograms): 139.400 Accuchecks BSG (last 24hrs): Test 11/06/17 19:12 11/06/17 23:41 11/07/17 04:33 11/07/17 11:04 Bedside Glucose 97 mg/dl (70-90) 126 mg/dl (70-90) Random Glucose 148 mg/dl (70-99) 169 mg/dl (70-99) Laboratory Data (last 24hrs) Test 11/06/17 23:33 11/06/17 23:41 11/07/17 04:33 Potassium Level 5.1 mmol/L mmol/L 5.2 mmol/L Anion Gap 2.0 mmol/L -1.0 mmol/L BUN/Creatinine Ratio 24.0 26.4 Blood Urea Nitrogen 22 mg/dl 21 mg/dl Creatinine 0.92 mg/dl 0.80 mg/dl Sodium Level 134 mmol/L 135 mmol/L White Blood Count 6.87 K/uL HbA1c last A1c known, 5.6% 03/24/16 Recent Pertinent Medications Outpatient Anti-diabetic Regimen: * no prior dx of DM The patient is currently receiving: * Basal insulin: Lantus -- units every -- hours * Correctional Insulin: Novolog Correction per scale ACHS Goal Range: Low -- mg/dL - High -- mg/dL Correction Factor: -- mg/dL/unit * Prandial insulin: Per carb ratio of 1 unit per -- grams CHO consumed Risk Factors for Insulin Resistance: * Steroids: Solu-Medrol 40mg IV Q 12 hours started last PM; changed to Prednisone taper this AM; received Prednisone 40mg x 1 this AM * Diet: ordered Regular diet; consumed only 15gm CHO this AM Assessment & Plan ASSESSMENT: * 61 yo female admitted with hypercarbic respiratory failure. She does have a h /o COPD, former smoker, requiring home O2 therapy * She has no prior dx of DM. Given body habitus (BMI 62) she is at risk for DM. * Will check A1c with next lab draw. * High dose IV steroids started last PM, BSGs did trend upwards afterwards however only peaked at 169 * Will begin basal/bolus SQ regimen based upon stress level 2 (for rapid acting ) however stress level 1 secondary to obesity and unknown baseline insulin resistance. Lower doses being selected initially due to tapering of steroid today as well. PLAN FOR INPATIENT GLYCEMIC CONTROL: * Lantus 15 units SQ x 1 this AM; then BID per the following scale: * 0 units if BSG less than 120 * 10 units if BSG 120-180 * 15 units if BSG above 180 * Novolog SQ ACHS and at 0200 tonight * Correction factor 20 mg/dl/unit * Carb ratio 1 unit per 6 grams CHO consumed * Goal range Low 120 mg/dL - High 160 mg/dL * Please note that the plan above was derived based on current level of insulin resistance and hospital stress. These recommendations are appropriate for inpatient admission only. Plan of care upon discharge will need to be reassessed to avoid potential outpatient hypo/hyperglycemia. Thank you.
[2017-11-07] MEDS ORDERED: NURSING VERBAL MED ORDER ONE (13:00)
--- NOTE | 2017-11-07 15:35 | ECHOCARDIOGRAM REPORT ---
*NOTICE TO RECEIVING [employer] This information is strictly Confidential and protected under [place] law. [place] law prohibits you from making any further disclosure of this information unless further disclosure is expressly permitted by the written consent of the person to whom it pertains or is authorized by law. A general authorization for the release of medical or other information is not sufficient for this purpose. Hospital accepts no responsibility if the information is made available to any other person, INCLUDING THE PATIENT. Interpretation Summary * Name: JASON MORILLO Study Date: 11/07/2017 07:09 AM BP: 112/74 mmHg * Patient Location: [facility] HR: 128 * : 1955 (M/d/yyyy) Gender: Female Height: 60 in * Age: 61 yrs Ethnicity: [place] Weight: 309 lb * Ordering Physician: Jefferson Pena * Referring Physician: Self, Referred * Performed By: Yessenia Marr RDCS * * Reason For Study: Congestive Heart Failure * BSA: 2.2 m2 * -- Conclusions -- * Study limited to left ventricular systolic function. * The left ventricle is hyperdynamic. * No regional wall motion abnormalities noted. * Ejection Fraction = >70 %. * There is borderline concentric left ventricular hypertrophy. Procedure Details * Limited views were obtained. * The study was technically difficult. * The study was technically difficult, but visualization was adequate with the administration of Definity ultrasound contrast. * A contrast injection of Definity was performed to improve assessment of LV function. * Contrast was injected into an intravenous site in the right arm. * One vial of Definity ultrasound contrast was diluted in normal saline to a total volume of 10 ml. A total of '4' ml of solution was administered during imaging. * Lot # [id number] of Definity utilized for procedure. * Expiration date . * The attending nurse who injected the contrast agent was Sania Montana RN. Left Ventricle * The left ventricle is normal in size. * There is borderline concentric left ventricular hypertrophy. * Ejection Fraction = >70 %. * The left ventricle is hyperdynamic. * No regional wall motion abnormalities noted. MMode 2D Measurements and Calculations LVAd ap4 18.4 cm\S\2 LVLd ap4 7.1 cm EDV(MOD-sp4) 40.4 ml EDV(sp4-el) 40.5 ml LVAs ap4 9.9 cm\S\2 LVLs ap4 6.5 cm ESV(MOD-sp4) 13.5 ml ESV(sp4-el) 12.7 ml EF(MOD-sp4) 66.7 % EF(sp4-el) 68.8 % LVAd ap2 22.2 cm\S\2 LVLd ap2 7.2 cm EDV(MOD-sp2) 57.4 ml EDV(sp2-el) 58.6 ml LVAs ap2 13.0 cm\S\2 LVLs ap2 6.3 cm ESV(MOD-sp2) 23.3 ml ESV(sp2-el) 22.9 ml EF(MOD-sp2) 59.4 % EF(sp2-el) 61.0 % LVLd %diff 0.89 % EDV(MOD-bp) 48.4 ml LVLs %diff -3.44 % ESV(MOD-bp) 17.9 ml EF(MOD-bp) 62.9 % SV(MOD-sp4) 26.9 ml SI(MOD-sp4) 12.0 ml/m\S\2 SV(MOD-sp2) 34.1 ml SI(MOD-sp2) 15.2 ml/m\S\2 SV(MOD-bp) 30.4 ml SI(MOD-bp) 13.5 ml/m\S\2 SV(sp4-el) 27.9 ml SI(sp4-el) 12.4 ml/m\S\2 SV(sp2-el) 35.7 ml SI(sp2-el) 15.9 ml/m\S\2
--- NOTE | 2017-11-07 21:25 | Hospitalist Progress Note ---
Hospitalist Progress Note Date of Service Nov 07, 2017. Subjective Pt evaluation today including: conversation w/ patient, conversation w/ design consultant ([employer]) Voiding: abdullahi catheter in place Pt annoyed that I woke her from a nap. Denies SOB. No other complaints. Says she has a CPAP at home but is noncompliant with it since the time her power went off and the mask got stuck on her face, making her feel like she was suffocating. All Other Systems: Reviewed and Negative Objective Vital Signs Date Time Temp Pulse Resp B/P (MAP) Pulse Ox O2 Delivery O2 Flow Rate FiO2 11/07/17 18:02 104 18 100/56 (71) 95 11/07/17 17:00 88 21 176/66 (102) 89 11/07/17 16:06 82 95 50 11/07/17 16:04 82 18 95 BiPAP/CPAP 50 11/07/17 16:01 37.0 91 24 148/81 (103) 96 BiPAP 11/07/17 16:00 BiPAP 11/07/17 15:01 89 16 105/66 (79) 95 6.0 11/07/17 14:01 36.9 91 18 142/85 (104) 93 Nasal Cannula 6.0 11/07/17 13:01 96 17 141/71 (94) 89 Nasal Cannula 6.0 11/07/17 12:50 100 91 11/07/17 12:01 37.0 104 23 110/45 (66) 89 Nasal Cannula 6.0 11/07/17 12:00 Nasal Cannula 6.0 11/07/17 11:09 97 18 93 Nasal Cannula 6.0 11/07/17 11:01 98 20 135/70 (91) 95 Nasal Cannula 6.0 11/07/17 09:01 97 22 140/59 (86) 91 Nasal Cannula 6.0 11/07/17 08:01 37.4 98 25 144/74 (97) 91 Nasal Cannula 6.0 11/07/17 08:00 Nasal Cannula 6.0 11/07/17 08:00 Nasal Cannula Oxymask BiPAP 11/07/17 07:20 93 22 92 Mask 6.0 11/07/17 07:00 95 18 143/98 (113) 91 Oxymask 6.0 11/07/17 05:01 93 25 112/74 (87) 98 BiPAP 50 18 04:05 91 26 145/91 (109) 97 BiPAP 50 11/07/17 04:02 37.0 92 23 78/46 (57) 97 BiPAP 50 11/07/17 04:00 BiPAP 50 18 03:58 86 97 50 18 03:05 86 25 148/61 (90) 97 BiPAP 45 11/07/17 02:01 84 29 118/90 (99) 93 BiPAP 45 11/07/17 01:05 88 27 156/86 (109) 97 BiPAP 50 11/07/17 00:01 BiPAP 50 18 00:01 36.9 81 28 155/75 (101) 100 BiPAP 50 11/06/17 23:57 79 24 172/74 (106) 100 BiPAP 50 11/06/17 23:48 72 96 50 18 23:47 72 21 96 BiPAP/CPAP 50 11/06/17 23:01 77 29 141/121 (128) 94 BiPAP 50 11/06/17 22:36 81 26 92/57 (69) 96 BiPAP 50 /18 21:10 36.9 79 22 147/93 (111) 93 BiPAP 50 Physical Exam General Appearance: WD/WN, no apparent distress, + obese Eyes: normal inspection, sclerae normal ENT: hearing grossly normal, pharynx normal Neck: trachea midline Respiratory/Chest: no respiratory distress, no accessory muscle use, + wheezing (scattered, decreased BS throughout due to morbid obesity) Cardiovascular: regular rate, rhythm, no edema, no murmur Abdomen: normal bowel sounds, non tender, soft Extremities: normal inspection, no pedal edema, no calf tenderness Neurologic/Psychiatric: alert, normal mood/affect, oriented x 3 Skin: normal color, warm/dry, no rash Laboratory Results Last 24 Hours Test 11/06/17 23:33 11/06/17 23:41 11/07/17 02:48 11/07/17 04:33 Arterial Blood pH 7.22 7.28 Arterial Blood Partial Pressure CO2 114 mmHg 103 mmHg Arterial Blood Partial Pressure O2 92 mm/Hg 64 mm/Hg Arterial Blood HCO3 46 mmol/L 47 mmol/L Arterial Blood Oxygen Saturation 95.4 % 91.6 % Arterial Blood Base Excess 13.8 mEq/L 15.6 mEq/L Arterial Blood Gas Delivery 50% 45% BIPAP Berto Test POS POS Potassium Level 5.1 mmol/L mmol/L 5.2 mmol/L Sodium Level 134 mmol/L 135 mmol/L Chloride Level 88 mmol/L 88 mmol/L Carbon Dioxide Level 44 mmol/L 48 mmol/L Anion Gap 2.0 mmol/L -1.0 mmol/L Blood Urea Nitrogen 22 mg/dl 21 mg/dl Creatinine 0.92 mg/dl 0.80 mg/dl Est Creatinine Clear Calc Drug Dose 81.8 ml/min 94.0 ml/min Estimated GFR () 77.3 91.6 Estimated GFR (Non- 66.7 79.0 BUN/Creatinine Ratio 24.0 26.4 Random Glucose 148 mg/dl 169 mg/dl Calcium Level 8.9 mg/dl 9.0 mg/dl White Blood Count 6.87 K/uL Red Blood Count 4.06 M/uL Hemoglobin 11.5 g/dL Hematocrit 38.0 % Mean Corpuscular Volume 93.6 fL Mean Corpuscular Hemoglobin 28.3 pg Mean Corpuscular Hemoglobin Concent 30.3 g/dl RDW Standard Deviation 48.5 fL RDW Coefficient of Variation 14.2 % Platelet Count 113 K/uL Mean Platelet Volume 9.9 fL Nucleated RBC Absolute Count (auto) 0.05 K/uL Nucleated Red Blood Cells % 0.8 % Magnesium Level 2.2 mg/dl Troponin I 0.031 ng/ml Test 11/07/17 11:04 11/07/17 16:10 Bedside Glucose 126 mg/dl 197 mg/dl Assessment and Plan Pt is a 61-year-old morbidly obese female here with hypercapnic acute respiratory failure. Acute on chronic hypercapnic respiratory failure- initial pH of 7.13 and a PCO2 of 138 on presentation is now somewhat improved today to 7.28/103 after being on BiPAP all night. Likely has COPD and OHS due to morbidly obese body habitus with BMI 62, worsened by Tramadol for pain for recent wrist fracture -Appreciate [employer] management -continue BiPAP with naps and qhs -will get overnight oximetry prior to dc to see about getting BiPAP at home rather than CPAP (which she is non-compliant with anyway) -check ABG in AM Chronic hypoxic respiratory failure/COPD -with some wheezing, quit smoking 12 yrs ago, on chronic home O2 6 LNC -continue nebulized bronchodilators -switched intravenous Solu-Medrol to po prednisone and taper down today as per Pulm Suspected acute on chronic diastolic CHF- with pulm vascular congestion on CXR- ECHO with hyperdynamic EF > 70% but cannot get good views to determine diastolic function Troponin neg x 2, proBNP elevated at 3000 -has diuresed -2.4L so far -was given intravenous Lasix and a Abdullahi catheter is in place -continue daily IV lasix -changed to low Na+ diet, and continue daily weights, I/Os Hyperglycemia-with IV corticosteroids -check HgbA1C in AM -Pharmacy managing with basal/bolus insulin -change to ADA diet Left radial head comminuted fracture now s/p closed reduction in ER on 11/04--> continue splint, seen by Ortho here - would judiciously use pain medication -f/u Ortho in 1 week in office with xrays DVT proph-heparin SQ Patient is a full code Dispo- [employer] wants to keep her in ICU tonight and then likely downgrade tomorrow
[2017-11-07] MEDS: INSULIN GLARGINE SOLOSTAR 100 UNITS/ML 3 ML PEN SC SCH (22:49)
[2017-11-08] VITALS (20 sets, daily range): BP systolic 130–179; BP diastolic 56–92; PULSE 73–104; TEMP 36.7–37.5; O2SAT 90–100
[2017-11-08] MEDS: HEPARIN SOD 5000 UNIT/0.5 ML CARP SQ SCH ×3 (00:17→18:15)
[2017-11-08] MEDS ORDERED: INSULIN ASPART 100 UNITS/ML 3 ML PEN SC ONE (02:00)
[2017-11-08 06:43] LABS: HEMOGLOBIN A1C 5.5 % (4.5-5.6)
[2017-11-08 06:47] LABS: CALCIUM 9.2 mg/dl (8.5-10.1); CREATININE 0.63 mg/dl (0.60-1.20); POTASSIUM 4.2 mmol/L (3.5-5.1)
[2017-11-08] MEDS: ALBUT/IPRATROP 3MG/0.5MG NEB 3 ML VIAL INH SCH ×4 (07:20→19:03)
[2017-11-08] MEDS: INSULIN ASPART 100 UNITS/ML 3 ML PEN SC SCH ×4 (07:55→21:18)
[2017-11-08] MEDS: DOCUSATE SODIUM 100 MG CAP PO SCH ×2 (07:57→21:15)
[2017-11-08] MEDS: PANTOprazole SOD 40 MG TAB PO SCH (07:58)
[2017-11-08] MEDS: FUROSEMIDE INJ 40 MG in SYRINGE 0 ML IV SCH (08:00)
[2017-11-08] MEDS: INSULIN GLARGINE SOLOSTAR 100 UNITS/ML 3 ML PEN SC SCH (08:21)
[2017-11-08] MEDS ORDERED: POLYETHYLENE (MIRALAX) 17 GM PACK PO PRN (09:30)
[2017-11-08] MEDS ORDERED: CEPHALEXIN MONOHYDRATE 500 MG CAP PO ONE (09:30)
--- NOTE | 2017-11-08 09:46 | Hospitalist Progress Note ---
Hospitalist Progress Note Date of Service Nov 08, 2017. Subjective Pt evaluation today including: conversation w/ patient, conversation w/ behavioral health consultant (Pulm/Critical Care) Voiding: abdullahi catheter in place Pt feels well, no SOB, had some coughing last night. ABG not done this AM as ordered. Constitutional: No fever All Other Systems: Reviewed and Negative Objective Vital Signs Date Time Temp Pulse Resp B/P (MAP) Pulse Ox O2 Delivery O2 Flow Rate FiO2 11/08/17 07:20 88 18 100 Nasal Cannula 6.0 11/08/17 06:00 75 15 154/76 (102) 99 BiPAP 11/08/17 05:43 82 13 160/92 (114) 99 BiPAP 11/08/17 05:01 73 16 164/58 (93) 98 BiPAP 11/08/17 04:00 36.8 77 11 151/63 (92) 97 BiPAP 11/08/17 04:00 BiPAP 11/08/17 03:01 78 18 149/80 (103) 100 BiPAP 11/08/17 02:00 86 11 160/66 (97) 97 BiPAP 11/08/17 01:01 18 179/79 (112) 99 BiPAP 11/08/17 00:01 BiPAP 11/08/17 00:00 36.9 82 19 166/63 (97) 97 BiPAP 11/07/17 23:00 87 11 153/65 (94) 94 BiPAP 11/07/17 22:37 89 98 50 11/07/17 22:01 84 19 153/57 (89) 95 BiPAP 11/07/17 21:01 84 19 157/61 (93) 99 BiPAP 11/07/17 20:01 37.0 93 17 176/78 (110) 98 BiPAP 18 20:00 BiPAP 18 19:30 92 18 98 Nasal Cannula 6.0 11/07/17 19:01 85 25 153/72 (99) 98 BiPAP 18 18:02 104 18 100/56 (71) 95 18 17:00 88 21 176/66 (102) 89 18 16:06 82 95 50 18 16:04 82 18 95 BiPAP/CPAP 50 11/07/17 16:01 37.0 91 24 148/81 (103) 96 BiPAP 11/07/17 16:00 BiPAP 11/07/17 15:01 89 16 105/66 (79) 95 6.0 11/07/17 14:01 36.9 91 18 142/85 (104) 93 Nasal Cannula 6.0 11/07/17 13:01 96 17 141/71 (94) 89 Nasal Cannula 6.0 11/07/17 12:50 100 91 11/07/17 12:01 37.0 104 23 110/45 (66) 89 Nasal Cannula 6.0 11/07/17 12:00 Nasal Cannula 6.0 11/07/17 11:09 97 18 93 Nasal Cannula 6.0 11/07/17 11:01 98 20 135/70 (91) 95 Nasal Cannula 6.0 Physical Exam General Appearance: no apparent distress, + obese (morbidly) Eyes: normal inspection, sclerae normal ENT: hearing grossly normal Neck: trachea midline Respiratory/Chest: no respiratory distress, no accessory muscle use, + decreased breath sounds (throughout due to body habitus) Cardiovascular: regular rate, rhythm, no murmur, + pertinent finding (2+ pitting edema LEs to knees bilat) Abdomen: normal bowel sounds, non tender (and morbidly obese), soft Extremities: non-tender, + pertinent finding (right leg with mild erythema entire leg, blisters and chronic venous stasis changes legs bilaterally) Neurologic/Psychiatric: alert, normal mood/affect, oriented x 3 Skin: warm/dry Laboratory Results Last 24 Hours Test 11/07/17 11:04 11/07/17 16:10 11/07/17 22:45 11/08/17 02:04 Bedside Glucose 126 mg/dl 197 mg/dl 149 mg/dl 117 mg/dl Test 11/08/17 05:15 11/08/17 06:26 Sodium Level 137 mmol/L Potassium Level 4.2 mmol/L Chloride Level 87 mmol/L Carbon Dioxide Level 49 mmol/L Anion Gap 1.0 mmol/L Blood Urea Nitrogen 24 mg/dl Creatinine 0.63 mg/dl Est Creatinine Clear Calc Drug Dose 116.4 ml/min Estimated GFR () 111.4 Estimated GFR (Non- 96.1 BUN/Creatinine Ratio 37.6 Random Glucose 109 mg/dl Estimated Average Glucose 111 mg/dl Hemoglobin A1c 5.5 % Calcium Level 9.2 mg/dl Bedside Glucose 106 mg/dl Assessment and Plan Pt is a 61-year-old morbidly obese female with a h/o COPD, ROZ noncompliant with CPAP, chronic resp failure, here with hypercapnic acute respiratory failure. Has had recent falls possibly due to CO2 narcosis, one resulting in left wrist fracture. Was given tramadol for pain and then came in obtunded in acute resp failure. Acute on chronic hypercapnic respiratory failure- initial pH of 7.13 and a PCO2 of 138 on presentation which then improved to 7.28/103 after being on BiPAP all night. Today's ABG is pending Likely has COPD and OHS due to morbidly obese body habitus with BMI 62, worsened by Tramadol for pain for recent wrist fracture -Appreciate Maintenance Scheduler management -continue BiPAP with naps and qhs -Case Management confirmed she already has BiPAP at home rather than CPAP (but is non-compliant)-will order new mask fitting and supplies to promote compliance -will need Pulm f/u after discharge which is already scheduled in < 2 weeks Recent falls-possibly secondary to hypercapnia/CO2 narcosis -PT/OT consults recommending SNF -treating with BiPAP as above -avoid muscle relaxers and opioids/tramadol Chronic hypoxic respiratory failure/COPD -with some wheezing, quit smoking 12 yrs ago, on chronic home O2 6 LNC -continue nebulized bronchodilators -switched intravenous Solu-Medrol to po prednisone and taper down as per Pulm Suspected acute on chronic diastolic CHF- with pulm vascular congestion on CXR- ECHO with hyperdynamic EF > 70% but cannot get good views to determine diastolic function Troponin neg x 2, proBNP elevated at 3000 -has diuresed -2.4L so far -was given intravenous Lasix and a Abdullahi catheter is in place -switch to po lasix daily-home dose--> ICU wants to give Diamox today -continue low Na+ diet, and continue daily weights, I/Os Hyperglycemia-with IV corticosteroids-improved now. HgbA1C 5.5% -check HgbA1C in AM -Pharmacy managing with basal/bolus insulin -change to ADA diet Left radial head comminuted fracture now s/p closed reduction in ER on 11/04--> continue splint, seen by Ortho here - would judiciously use pain medication -f/u Ortho in 1 week in office with xrays DVT proph-heparin SQ Patient is a full code Dispo-transfer to tele Needs SNF placement tomorrow
[2017-11-08] MEDS ORDERED: ACETAZOLAMIDE IV PUSH 500 MG in SYRINGE 0 ML IV ONE (10:00)
--- NOTE | 2017-11-08 10:00 | Critical Care Progress Note ---
Critical Care Progress Note Date of Service Nov 08, 2017. Attending Dr. Cox Subjective Wore BIPAP overnight Much more awake today, no confusion Objective General Appearance: no apparent distress, obese, awakw Eyes: PERRLA Neck: Thick neck Respiratory: Distant breath sounds Cardiovascular: Distant heart sounds Abdomen: non tender Extremities: Left forearm in splint, Lower extremities edema Neuro: AAO x 3, but with occasional confusion Assessment & Plan 61 year old female with morbid obesity, advanced COPD, presents with acute on chronic hypercarbic respiratory failure, with CO2 narcosis Plan: Continue nocturnal BIPAP therapy. ABG today with much improved hypercapnia, but also with worsening metabolic alkalosis, leading to pH of 7.5 Will administer a dose of acetazolamide She must use BIPAP every single night, as well as during the day when she naps Oral steroids Bronchodilators Avoid sedating agents Ortho consult noted. Not an operative candidate DVT prophylaxis: SC heparin May transfer patient to floor today, will sign off Critical care time spent with the patient, reviewing chart, discussing with consultants, greater than 25 minutes Consults & Procedures Consultants: Ortho - Dr Berumen Data Medications: Current Inpatient Medications Medications (Trade) Dose Ordered Sig/Monse Route Start Time Stop Time Status Last Admin Dose Admin Docusate Sodium (coLACE CAP) 100 mg BID PO 11/06/17 21:00 12/06/17 20:59 11/08/17 07:57 100 MG Pantoprazole Sodium (Protonix Tab) 40 mg DAILY PO 11/07/17 09:00 12/07/17 08:59 11/08/17 07:58 40 MG Albuterol/ Ipratropium (Duoneb) 3 ml QIDR INH 11/06/17 16:00 12/06/17 15:59 11/08/17 07:20 3 ML Albuterol/ Ipratropium (Duoneb) 3 ml Q2R PRN INH 11/06/17 16:00 12/06/17 15:59 Acetaminophen (Tylenol Tab) 650 mg Q4H PRN PO 11/06/17 15:00 12/06/17 14:59 Prednisone (PredniSONE TAB) 40 mg Taper DAILY@0900 PO 11/07/17 09:00 11/15/17 08:59 11/08/17 07:58 40 MG Insulin Aspart (novoLOG ASPART) SLIDING SCALE ACHS SC 11/07/17 08:00 12/07/17 07:59 11/08/17 07:55 7 UNITS Heparin Sodium (Porcine) (Heparin Sq 5000 Unit/0.5ml) 5,000 unit Q8@0000,0800,1600 SQ 11/07/17 09:00 12/07/17 08:59 11/08/17 07:55 5,000 UNIT Miscellaneous Information (Consult Glycemic Management Pharmacy) 1 ea UD PRN N/A 11/07/17 11:30 12/07/17 11:29 Insulin Glargine (Lantus Solostar Pen) see protocol text BID SC 11/07/17 21:00 12/07/17 20:59 11/07/17 22:49 10 UNITS Budesonide (Pulmicort Respules 0.5MG/ 2ML Neb Soln) 0.5 mg BIDR INH 11/08/17 20:00 12/08/17 19:59 Furosemide (Lasix Tab) 40 mg DAILY PO 11/09/17 09:00 12/09/17 08:59 Polyethylene (Miralax Powder Packet) 17 gm DAILY PRN PO 11/08/17 09:30 12/08/17 09:29 Cephalexin Monohydrate (Keflex Cap) 500 mg QID PO 11/08/17 13:00 11/18/17 12:59 Acetazolamide Sodium 500 mg/ Syringe 5 ml @ 5 mls/min ONE IV 11/08/17 10:00 12/08/17 09:59 UNV Vital Signs: Date Time Temp Pulse Resp B/P (MAP) Pulse Ox O2 Delivery O2 Flow Rate FiO2 11/08/17 07:20 88 18 100 Nasal Cannula 6.0 11/08/17 06:00 75 15 154/76 (102) 99 BiPAP 11/08/17 05:43 82 13 160/92 (114) 99 BiPAP 11/08/17 05:01 73 16 164/58 (93) 98 BiPAP 11/08/17 04:00 36.8 77 11 151/63 (92) 97 BiPAP 11/08/17 04:00 BiPAP 11/08/17 03:01 78 18 149/80 (103) 100 BiPAP 11/08/17 02:00 86 11 160/66 (97) 97 BiPAP 11/08/17 01:01 18 179/79 (112) 99 BiPAP 11/08/17 00:01 BiPAP 11/08/17 00:00 36.9 82 19 166/63 (97) 97 BiPAP 11/07/17 23:00 87 11 153/65 (94) 94 BiPAP 11/07/17 22:37 89 98 50 11/07/17 22:01 84 19 153/57 (89) 95 BiPAP 11/07/17 21:01 84 19 157/61 (93) 99 BiPAP 11/07/17 20:01 37.0 93 17 176/78 (110) 98 BiPAP 11/07/17 20:00 BiPAP 11/07/17 19:30 92 18 98 Nasal Cannula 6.0 11/07/17 19:01 85 25 153/72 (99) 98 BiPAP 11/07/17 18:02 104 18 100/56 (71) 95 11/07/17 17:00 88 21 176/66 (102) 89 11/07/17 16:06 82 95 50 11/07/17 16:04 82 18 95 BiPAP/CPAP 50 11/07/17 16:01 37.0 91 24 148/81 (103) 96 BiPAP 11/07/17 16:00 BiPAP 11/07/17 15:01 89 16 105/66 (79) 95 6.0 11/07/17 14:01 36.9 91 18 142/85 (104) 93 Nasal Cannula 6.0 11/07/17 13:01 96 17 141/71 (94) 89 Nasal Cannula 6.0 11/07/17 12:50 100 91 11/07/17 12:01 37.0 104 23 110/45 (66) 89 Nasal Cannula 6.0 11/07/17 12:00 Nasal Cannula 6.0 11/07/17 11:09 97 18 93 Nasal Cannula 6.0 11/07/17 11:01 98 20 135/70 (91) 95 Nasal Cannula 6.0 Laboratory Results: Last 24 Hours Test 11/07/17 11:04 11/07/17 16:10 11/07/17 22:45 11/08/17 02:04 Bedside Glucose 126 mg/dl 197 mg/dl 149 mg/dl 117 mg/dl Test 11/08/17 05:15 2/7/18 06:26 11/08/17 09:28 Sodium Level 137 mmol/L Potassium Level 4.2 mmol/L Chloride Level 87 mmol/L Carbon Dioxide Level 49 mmol/L Anion Gap 1.0 mmol/L Blood Urea Nitrogen 24 mg/dl Creatinine 0.63 mg/dl Est Creatinine Clear Calc Drug Dose 116.4 ml/min Estimated GFR () 111.4 Estimated GFR (Non- 96.1 BUN/Creatinine Ratio 37.6 Random Glucose 109 mg/dl Estimated Average Glucose 111 mg/dl Hemoglobin A1c 5.5 % Calcium Level 9.2 mg/dl Bedside Glucose 106 mg/dl Blood Gas Sample Site R Radial Bedside Blood Gas pH (LAB) 7.50 Bedside Blood Gas pCO2 (LAB) 71 mmHg Bedside Blood Gas pO2 (LAB) 55 mmHg Bedside Blood Gas HCO3 (LAB) 56 meq/L Bedside Blood Gas Total CO2 < 5 mEq/l Bedside Blood Gas Base Excess (LAB) > 30.0 meq/L Bedside Blood Gas O2 Saturation 89.0 % Berto Test Pass Oxygen Delivery Device Cannula
[2017-11-08] MEDS ORDERED: INSULIN GLARGINE SOLOSTAR 100 UNITS/ML 3 ML PEN SC ONE (11:00)
--- NOTE | 2017-11-08 12:29 | Pharmacy Progress Note ---
Glycemic Control Progress Note Date of Service Nov 08, 2017. Scope Glycemic Pharmacist consulted for glycemic control to write orders per [facility] inpatient glycemic control protocol. Objective Accuchecks BSG (last 24hrs): Test 11/07/17 16:10 11/07/17 22:45 11/08/17 02:04 11/08/17 05:15 Bedside Glucose 197 mg/dl (70-90) 149 mg/dl (70-90) 117 mg/dl (70-90) Random Glucose 109 mg/dl (70-99) Test 11/08/17 06:26 11/08/17 10:59 Bedside Glucose 106 mg/dl (70-90) 104 mg/dl (70-90) HbA1c: Test 11/08/17 05:15 Hemoglobin A1c 5.5 % (4.5-5.6) Recent Pertinent Medications Outpatient Anti-diabetic Regimen: * no prior dx of DM; A1c 5.5% The patient is currently receiving: * Basal insulin: Lantus 15 units in AM + 10 units in PM yesterday * Correctional Insulin: Novolog Correction per scale ACHS Goal Range: Low 120 mg/dL - High 160 mg/dL Correction Factor: 20 mg/dL/unit * Prandial insulin: Per carb ratio of 1 unit per 6 grams CHO consumed Risk Factors for Insulin Resistance: * Steroids: Prednisone taper; received Prednisone 40mg x 1 this AM * Diet: ordered T2DM/Low Na diet Assessment & Plan ASSESSMENT: 11/07/17 * 61 yo female admitted with hypercarbic respiratory failure. She does have a h /o COPD, former smoker, requiring home O2 therapy * She has no prior dx of DM. Given body habitus (BMI 62) she is at risk for DM. * Will check A1c with next lab draw. * High dose IV steroids started last PM, BSGs did trend upwards afterwards however only peaked at 169 * Will begin basal/bolus SQ regimen based upon stress level 2 (for rapid acting ) however stress level 1 secondary to obesity and unknown baseline insulin resistance. Lower doses being selected initially due to tapering of steroid today as well. 11/08/17 * Glycemic control acceptable over the last 24 hrs, only 1 BSG above 180 * Fasting BSG 106 this AM w/ 25 units basal on board - will back off on Lantus dose as A1c 5.5 not consistent w/ DM or impaired insulin sensitivity at baseline. Pt's prednisone dose will decrease tomorrow. * Post-prandial BSGs control 2 out of 3 times yesterday using current CF and CR ; will continue the same for remainder of the day then reduce doses tomorrow due to change in steroids PLAN FOR INPATIENT GLYCEMIC CONTROL: * Decrease Lantus to 15 units SQ Q AM, give 15 units w/ lunch today as AM dose was held * Novolog SQ ACHS * Correction factor 20 mg/dl/unit for remainder of today, change to 25mg/dL/ unit tomorrow AM * Continue carb ratio 1 unit per 6 grams CHO consumed today, change to 1 unit per 7 grams CHO consumed tomorrow AM * Continue goal range Low 120 mg/dL - High 160 mg/dL * Reevaluate insulin doses w/ each step down in steroid dose * Please note that the plan above was derived based on current level of insulin resistance and hospital stress. These recommendations are appropriate for inpatient admission only. Plan of care upon discharge will need to be reassessed to avoid potential outpatient hypo/hyperglycemia. Thank you.
[2017-11-08] MEDS: CEPHALEXIN MONOHYDRATE 500 MG CAP PO SCH ×3 (12:37→22:08)
[2017-11-08] MEDS: BUDESONIDE 0.5 MG/2 ML VIAL (PULMICORT) INH SCH (19:03)
[2017-11-08] MEDS: TRAMADOL HCL 50 MG TAB PO PRN (21:15)
[2017-11-09] VITALS (15 sets, daily range): BP systolic 144–164; BP diastolic 64–72; PULSE 66–91; TEMP 36.7–37.2; O2SAT 94–99
[2017-11-09] MEDS: HEPARIN SOD 5000 UNIT/0.5 ML CARP SQ SCH ×3 (00:09→16:32)
[2017-11-09 05:52] LABS: HEMATOCRIT 39.2 % (37-47); HEMOGLOBIN 12.2 g/dL (12.0-16.0); MEAN CORPUSCULAR HEMOGLOBIN 28.6 pg (25-34); MEAN CORPUSCULAR HGB CONC 31.1 g/dl (32-36); MEAN PLATELET VOLUME 9.2 fL (7.4-10.4); PLATELET COUNT 144 K/uL (130-400); RED CELL DISTRIBUTION WIDTH CV 14.1 % (11.5-14.5); WHITE BLOOD COUNT 8.02 K/uL (4.8-10.8)
[2017-11-09 06:34] LABS: CALCIUM 9.1 mg/dl (8.5-10.1); CREATININE 0.85 mg/dl (0.60-1.20); POTASSIUM 4.2 mmol/L (3.5-5.1)
[2017-11-09] MEDS: BUDESONIDE 0.5 MG/2 ML VIAL (PULMICORT) INH SCH ×2 (07:16→19:52)
[2017-11-09] MEDS: ALBUT/IPRATROP 3MG/0.5MG NEB 3 ML VIAL INH SCH ×4 (07:16→19:52)
[2017-11-09] MEDS: PANTOprazole SOD 40 MG TAB PO SCH (08:30)
[2017-11-09] MEDS: CEPHALEXIN MONOHYDRATE 500 MG CAP PO SCH ×4 (08:30→21:42)
[2017-11-09] MEDS: FUROSEMIDE 40 MG TAB PO SCH (08:30)
[2017-11-09] MEDS: DOCUSATE SODIUM 100 MG CAP PO SCH ×2 (08:30→21:42)
[2017-11-09] MEDS: INSULIN ASPART 100 UNITS/ML 3 ML PEN SC SCH ×4 (08:36→21:41)
[2017-11-09] MEDS: INSULIN GLARGINE SOLOSTAR 100 UNITS/ML 3 ML PEN SC SCH (08:37)
[2017-11-09] MEDS: TRAMADOL HCL 50 MG TAB PO PRN ×2 (08:41→21:45)
[2017-11-09] MEDS ORDERED: NURSING VERBAL MED ORDER ONE (16:30)
[2017-11-09] MEDS ORDERED: SODIUM CHLORIDE 0.65% NA SOLN 45 ML (OCEAN) ONE (16:31)
[2017-11-09] MEDS ORDERED: SODIUM CHLORIDE 0.65% NA SOLN 45 ML (OCEAN) PRN (16:45)
[2017-11-09] MEDS ORDERED: MICONAZOLE NITRATE POWDER 43 GM EXT PRN (16:45)
--- NOTE | 2017-11-09 23:17 | Hospitalist Progress Note ---
Hospitalist Progress Note Date of Service Nov 09, 2017. Subjective Pt evaluation today including: conversation w/ patient Pt feels fine, has no complaints. Tolerating BiPAP at night and says she is willing to wear it at home if she can get fitted for a mask she likes better. She has not been out of bed to a chair and I encouraged her to do this today, but she refused, stating "I'm quite comfortable." Says she will not go to SNF. Had about 2 minutes of ectopic atrial rhythm on tele today All Other Systems: Reviewed and Negative Objective Vital Signs Date Time Temp Pulse Resp B/P (MAP) Pulse Ox O2 Delivery O2 Flow Rate FiO2 11/09/17 20:18 Nasal Cannula 6.0 11/09/17 19:58 36.7 79 18 153/68 (96) 95 Nasal Cannula 6.0 11/09/17 19:52 66 18 97 Nasal Cannula 6.0 11/09/17 16:00 98 Nasal Cannula 6.0 11/09/17 14:48 37.1 75 20 148/64 (92) 98 Nasal Cannula 6.0 11/09/17 12:00 98 Nasal Cannula 6.0 11/09/17 11:37 91 18 94 Nasal Cannula 6.0 11/09/17 11:05 36.7 76 20 159/68 (98) 96 Nasal Cannula 6.0 11/09/17 08:00 98 Nasal Cannula 6.0 11/09/17 07:17 88 98 50 11/09/17 07:16 88 18 98 BiPAP/CPAP 50 11/09/17 07:09 37.2 71 20 160/66 (97) 98 BiPAP 11/09/17 04:08 37.0 73 18 144/72 (96) 99 BiPAP 11/09/17 04:05 BiPAP 11/09/17 00:41 98 50 11/09/17 00:05 BiPAP 11/08/17 23:10 37.1 75 18 166/67 (100) 98 BiPAP Physical Exam General Appearance: no apparent distress, + obese (morbidly) Eyes: normal inspection, sclerae normal ENT: hearing grossly normal Neck: trachea midline Respiratory/Chest: no respiratory distress, no accessory muscle use, + decreased breath sounds (throughout, some faint wheezes) Cardiovascular: regular rate, rhythm, no murmur, + pertinent finding (trace pitting edema legs bilat, erythema on right leg is now resolved) Abdomen: normal bowel sounds, non tender, soft (and morbidly obese) Extremities: no calf tenderness, + pertinent finding (left upper ext in sling) Neurologic/Psychiatric: alert, normal mood/affect Skin: warm/dry Laboratory Results Last 24 Hours Test 11/09/17 05:43 11/09/17 07:38 11/09/17 11:33 11/09/17 16:22 White Blood Count 8.02 K/uL Red Blood Count 4.26 M/uL Hemoglobin 12.2 g/dL Hematocrit 39.2 % Mean Corpuscular Volume 92.0 fL Mean Corpuscular Hemoglobin 28.6 pg Mean Corpuscular Hemoglobin Concent 31.1 g/dl RDW Standard Deviation 47.0 fL RDW Coefficient of Variation 14.1 % Platelet Count 144 K/uL Mean Platelet Volume 9.2 fL Arterial Blood pH 7.35 Arterial Blood Partial Pressure CO2 79 mmHg Arterial Blood Partial Pressure O2 143 mm/Hg Arterial Blood HCO3 43 mmol/L Arterial Blood Oxygen Saturation 98.7 % Arterial Blood Base Excess 13.7 mEq/L Arterial Blood Gas Delivery 50% Berto Test POS Sodium Level 136 mmol/L Potassium Level 4.2 mmol/L Chloride Level 93 mmol/L Carbon Dioxide Level 41 mmol/L Anion Gap 2.0 mmol/L Blood Urea Nitrogen 28 mg/dl Creatinine 0.85 mg/dl Est Creatinine Clear Calc Drug Dose 153.3 ml/min Estimated GFR () 85.1 Estimated GFR (Non- 73.4 BUN/Creatinine Ratio 32.9 Random Glucose 104 mg/dl Calcium Level 9.1 mg/dl Magnesium Level 2.4 mg/dl Bedside Glucose 92 mg/dl 108 mg/dl 151 mg/dl Test 11/09/17 20:27 Bedside Glucose 127 mg/dl Assessment and Plan Pt is a 61-year-old morbidly obese female with a h/o COPD, ROZ noncompliant with CPAP, chronic resp failure, here with hypercapnic acute respiratory failure. Has had recent falls possibly due to CO2 narcosis, one resulting in left wrist fracture. Was given tramadol for pain and then came in obtunded in acute hypercapnic resp failure. Acute on chronic hypercapnic respiratory failure- initial pH of 7.13 and a PCO2 of 138 on presentation which then improved to 7.28/103 after being on BiPAP all night. Today's ABG is 7.35/79/143 Likely has COPD and OHS due to morbidly obese body habitus with BMI 62, worsened by Tramadol for pain for recent wrist fracture -Appreciate [employer] management while in ICU -continue BiPAP with naps and qhs-has at home -Case Management confirmed she already has BiPAP at home rather than CPAP (but is non-compliant)-will order new mask fitting and supplies to promote compliance , changed settings to 16/ -son to bring in BiPAP to hospital today so Pk's can come tomorrow to do fitting and then she can be discharged -will need Pulm f/u after discharge which is already scheduled in < 2 weeks Recent falls-possibly secondary to hypercapnia/CO2 narcosis -PT/OT consults recommending SNF -treating with BiPAP as above -avoid muscle relaxers and opioids, can use tramadol sparingly Chronic hypoxic respiratory failure/COPD -with some wheezing, quit smoking 12 yrs ago, on chronic home O2 6 LNC -continue nebulized bronchodilators, corticosteroids -was on IV Solu-Medrol and now on po prednisone and taper down Suspected acute on chronic diastolic CHF- with pulm vascular congestion on CXR- ECHO with hyperdynamic EF > 70% but cannot get good views to determine diastolic function Troponin neg x 2, proBNP elevated at 3000 -has diuresed -5.1L so far -was given intravenous Lasix and a Degroot catheter is in place, HCO3 trending upward and pH went to 7.5, 1 dose Diamox given -continue po lasix daily-home dose -continue low Na+ diet, and continue daily weights, I/Os Hyperglycemia secondary to corticosteroids-improved now. HgbA1C 5.5% -Pharmacy managing with basal/bolus insulin, but will not need any meds on discharge -changed to ADA diet Left radial head comminuted fracture now s/p closed reduction in ER on 11/04--> continue splint, seen by Ortho here - would judiciously use pain medication -f/u Ortho in 1 week in office with xrays-around 11/13 Lower extremity cellulitis-right leg--> was on abx prior to admisison, then they were stopped for 1 day, she said erythema was worse again--> restarted keflex and today much improved -finish out course of keflex x 7 days -improve LE edema with leg elevation, diuretics DVT proph-heparin SQ Patient is a full code Dispo-refusing SNF recommended by PT/OT, plan for return to home tomorrow with 24 hour caregivers after gets fitted for BiPAP mask
[2017-11-10] MEDS: HEPARIN SOD 5000 UNIT/0.5 ML CARP SQ SCH ×2 (00:13→08:07)
[2017-11-10 02:45] VITALS: BP 151/61; PULSE 66; TEMP 35.8; O2SAT 96
[2017-11-10 06:28] LABS: CALCIUM 9.1 mg/dl (8.5-10.1); CREATININE 0.92 mg/dl (0.60-1.20)
[2017-11-10 06:51] VITALS: PULSE 64; O2SAT 98
[2017-11-10] MEDS: BUDESONIDE 0.5 MG/2 ML VIAL (PULMICORT) INH SCH (06:51)
[2017-11-10] MEDS: ALBUT/IPRATROP 3MG/0.5MG NEB 3 ML VIAL INH SCH ×2 (06:51→11:09)
[2017-11-10] MEDS: CEPHALEXIN MONOHYDRATE 500 MG CAP PO SCH ×2 (08:01→12:14)
[2017-11-10] MEDS: PANTOprazole SOD 40 MG TAB PO SCH (08:01)
[2017-11-10] MEDS: FUROSEMIDE 40 MG TAB PO SCH (08:01)
[2017-11-10] MEDS: DOCUSATE SODIUM 100 MG CAP PO SCH (08:01)
--- NOTE | 2017-11-10 08:03 | PROGRESS NOTE ---
DATE: 11/10/2017 SUBJECTIVE: A 61-year-old female admitted with pulmonary compromise, status post a fall with left distal radius fracture. She is in a sugar tong splint and a sling. She appears pretty comfortable this morning. No new complaints. Some soreness in her wrist, but manageable. OBJECTIVE: VITAL SIGNS: Temperature 36.8. Vital signs stable. GENERAL: Obese female lying in bed. I had to wake her this morning. EXTREMITIES: Examination of the left arm reveals the sling and the sugar tong splint to be in place. Wrist looks grossly anatomically well aligned. She can flex or extend her fingers within the limits of the splint. ASSESSMENT: A 61-year-old female with a left displaced distal radius fracture status post closed reduction. Not ideal reduction but acceptable. Splint is in place. It does not appear to be irritating her in any fashion. PLAN: We will continue the sugar tong splint and the sling. We will likely change this to a short arm cast 2-3 weeks after the initial injury. She will need a total of 6 weeks of casting. The splint is not optimal, but acceptable and as long as she does not have any problems we will leave them in place. Trying to switch that at this point will only cause her further pain and compromise of her reduction, but if needed for comfort purposes that can be done. I need to see her about 2 weeks. Any orthopedic questions can be directed at [phone].
[2017-11-10] MEDS: INSULIN GLARGINE SOLOSTAR 100 UNITS/ML 3 ML PEN SC SCH (08:06)
[2017-11-10] MEDS: INSULIN ASPART 100 UNITS/ML 3 ML PEN SC SCH ×2 (08:07→12:16)
[2017-11-10 08:11] VITALS: BP 166/70; PULSE 62; TEMP 36.8; O2SAT 99
--- NOTE | 2017-11-10 09:26 | Pharmacy Progress Note ---
Pharmacy Glycemic Short Note 2 Date of Service Nov 10, 2017. OUTPATIENT ANTIDIABETIC REGIMEN: * N/A ASSESSMENT: * Ms Landeros is a 61 y/o F with a PMH of COPD as a former smoker who presents with hypercapnic respiratory failure. She is currently on prednisone 30 mg daily scheduled to decrease to 20 mg tomorrow. Patient received around 25 units yesterday (15 units of Lantus) and blood sugars ranged from 92-151 mg/dL. Fasting this morning was 97 mg/dL. * Patient had excellent control yesterday - continue same Lantus dose of 15 units for today. Decrease to 10 units tomorrow for prednisone 20 mg (keeps same ratio of 0.5 units per mg of prednisone). Tighten Novolog slightly for dinner as blood sugar jumped at lunchtime. PLAN FOR INPATIENT GLYCEMIC CONTROL: * Basal insulin * Lantus 15 units SQ qAM decreasing to 10 units SQ yesterday * Bolus insulin * NovoLog per scale ACHS * Goal Range: Low 120 mg/dL - High 160 mg/dL * Correction Factor: 25 mg/dL/unit * Nutritional / Prandial insulin per carb ratio of 1 unit per 6 grams CHO consumed PLAN FOR DISCHARGE: * Ms Landeros's HbA1C is well controlled. While on steroids, may benefit from once daily Lantus injections. Consider 0.5 units per every 1 mg of prednisone (e.g. 10 units for 20 mg of prednisone and 5 units for 10 mg of prednisone).
[2017-11-10 11:10] VITALS: PULSE 69; O2SAT 98
[2017-11-10] MEDS ORDERED: PRD10 PO (12:10)
[2017-11-10] MEDS ORDERED: RBX750 PO (12:10)
[2017-11-10] MEDS ORDERED: KFL500 PO (12:10)
[2017-11-10] MEDS ORDERED: OXGN (12:10)
[2017-11-10] MEDS ORDERED: MCTP EXT (12:10)
--- NOTE | 2017-11-10 12:13 | Discharge Instructions ---
Discharge Instructions Date of Service Nov 10, 2017. Admission Reason for Admission: Hypercapnic Respiratory Failure Discharge Discharge Diagnosis / Problem: Hypercapnic respiratory failure Discharge Goals Goal(s): Improve disease control, Diagnostic testing, Therapeutic intervention Activity Recommendations Activity Limitations: as noted below Exercise/Sports Limitations: gradually increase as tolerated . Keep left upper extremity in splint with sling as needed for comfort until seen by orthopedic surgeon. Instructions / Follow-Up Instructions / Follow-Up You were admitted with respiratory failure due to high carbon dioxide levels. It is very important that you continue to use her BiPAP machine every night while sleeping as well as with any naps during the daytime. Please follow-up with orthopedic surgeon for her broken wrist within 2 weeks. Please follow-up with your dental receptionist as scheduled in 2 weeks. Please follow-up with your PCP within 1-2 weeks. Current Hospital Diet Patient's current hospital diet: Diabetes Type 2 Diet, Low Sodium Diet (2gm Na) Discharge Diet Recommended Diet: Low Sodium Diet (2gm Na) Procedures Procedures Performed: CT head Chest x-rays Pending Studies Studies pending at discharge: no Laboratory Results Hemoglobin A1c Test 11/08/17 05:15 Range/Units Estimated Average Glucose 111 mg/dl Hemoglobin A1c 5.5 4.5-5.6 % Medical Emergencies . Who to Call and When: Medical Emergencies: If at any time you feel your situation is an emergency, please call 911 immediately. . Non-Emergent Contact Non-Emergency issues call your: Primary Care Provider, Re Dye Hand Call Non-Emergent contact if: you have a fever, temperature is above 100.5, your pain is not controlled, your pain is worsening, your pain is unusual for you, your pain is concerning you, you have any medication questions . . "Provider Documentation" section prepared by Nan Blackman. . VTE Core Measure Inpt VTE Proph given/why not?: Unfractionated heparin SQ
[2017-11-10 12:20] VITALS: BP 166/70; PULSE 69; TEMP 36.8; O2SAT 98
--- NOTE | 2017-11-10 12:26 | Discharge Summary ---
Discharge Summary Date of Service Nov 10, 2017. Discharge Summary Admission Date: Nov 06, 2017 at 15:01 Discharge Date: Nov 10, 2017 Discharge Disposition: Home with services Principal Diagnosis: Acute hypercapnic respiratory failure Problems/Secondary Diagnoses: COPD ROZ and obesity hypoventilation syndrome noncompliant with CPAP Chronic hypoxemic and hypercapnic respiratory failure on 4-6 L nasal cannula Recent falls Left wrist fracture Acute on chronic diastolic CHF Elevated blood pressure without diagnosis of hypertension Hyperglycemia secondary to corticosteroids Morbid obesity, BMI 57.9 Chronic venous stasis, venous insufficiency Lower extremity cellulitis-right leg Ambulatory dysfunction Immunizations: Have You Had Influenza Vaccine: N/A History of Tetanus Vaccine?: Unknown History of Pneumococcal: Unknown History of Hepatitis B Vaccine: Unknown Procedures: CT head Chest x-rays Echocardiogram: * Study limited to left ventricular systolic function. * The left ventricle is hyperdynamic. * No regional wall motion abnormalities noted. * Ejection Fraction = >70 %. * There is borderline concentric left ventricular hypertrophy Consultations: Critical care medicine/pulmonology Orthopedic surgery Medication Reconciliation New Medications: Cephalexin Monohydrate (Cephalexin) 500 Mg Cap 500 MG PO QID for 1 Day, #4 CAP She already has this at home Miconazole Nitrate (Desenex Shake Powder) 43 Appln/43 Gm Powd 1 APPLN EXT PRN PRN for Affected Skin Folds for 30 Days Prednisone (Prednisone) 10 Mg Tab 20 MG PO DAILY@0900, #6 TAB x 2 days then 10mg daily x 2 days, then STOP Changed Medications: Home O2 Therapy (Oxygen) Gas 6 LITERS NA CONTINOUS for 30 Days (Changed from: 4 LITERS) Methocarbamol (Methocarbamol) 750 Mg Tab 750 MG PO QID PRN for Muscle Spasms, #30 (Medication details modified) Continued Medications: Albuterol Hfa (Ventolin Hfa) 200 Puffs/59200 Mcg Aers 2-4 PUFFS INH Q6H PRN for Shortness of Breath, #1 INHALER Albuterol Sulf (Albuterol Sulfate) 2.5 Mg/3 Ml Nebu 1 UNIT NEB Q4 PRN for Shortness of Breath Budesonide Soln (Pulmicort Respules 0.5MG/2ML) Nebu 1 VIAL NEB BID for 30 Days, #60 VIAL 3 Refills Docusate Sodium (Docusate Sodium) 100 Mg Cap 1 CAP PO BID for 7 Days, #14 CAP Ergocalciferol (Vitamin D 97262 Unit) 50,000 Unit Cap 1 TAB PO WK, CAP Furosemide (Lasix) 40 Mg Tab 40 MG PO DAILY, TAB Ipratrop[place] (Atrovent 0.02% Soln) 2.5 Ml Nebu 1 UNIT INH QID Omeprazole (Prilosec) 40 Mg Cap 40 MG PO DAILY, CAP Polyethylene (Miralax Powder Packet) 17 Gm Pack 17 GM PO DAILY PRN for Constipation Tramadol (Ultram) 50 Mg Tab 50 MG PO Q8H PRN for Pain, #12 TAB [Utibron] () 27.5-15.6 MCG 1 PUFF PO BID Discontinued Medications: Tramadol (Ultram) 50 Mg Tab 50 MG PO Q4H PRN for Pain, TAB Referrals At Discharge Follow up Referrals: Orthopedics Referral - Within 2 Weeks with Oliver Berumen M.D. Discharge Exam Patient feeling well on day of discharge. Has some pain in the left wrist. Is out of bed to the chair and tolerating p.o. She is making urine and ambulating to the bathroom with her walker without assistance. Denies chest pain or pressure. She feels that she will be compliant with her BiPAP at home if she can bring the mask home from the hospital and/or get fitted with a new mask from the [facility] which is coming on Monday. Review of Systems: Constitutional: No fever Eyes: No problem reported ENT: No problem reported Respiratory: No problem reported Cardiovascular: No problem reported Abdomen: + constipation Musculoskeletal: No problem reported Genitourinary - Female: No problem reported Neurologic: No problem reported Psychiatric: No problem reported Endocrine: No problem reported Hematologic / Lymphatic: No problem reported Integumentary: No problem reported Physical Exam: General Appearance: WD/WN, no apparent distress, + obese Eyes: normal inspection, sclerae normal ENT: hearing grossly normal Neck: trachea midline Respiratory/Chest: lungs clear, normal breath sounds, no respiratory distress, no accessory muscle use Cardiovascular: regular rate, rhythm, no gallop, no murmur, + pertinent finding (Trace pitting edema legs bilaterally with chronic venous stasis changes ) Abdomen / GI: normal bowel sounds, non tender, soft (Morbidly obese) Extremities: normal capillary refill, + pertinent finding (Left upper extremity in sling, left forearm in a sugar tong splint, good cap refill in the fingers with sensation intact; right leg with no erythema, only chronic venous stasis changes as above) Neurologic/Psychiatric: alert, normal mood/affect, oriented x 3 Skin: warm/dry Hospital Course Pt is a 61-year-old morbidly obese female with a h/o COPD, ROZ and OHS noncompliant with CPAP, chronic hypoxemic and hypercapnic respiratory failure, here with acute hypercapnic respiratory failure. Has had recent falls possibly due to CO2 narcosis, one resulting in left wrist fracture. Is on tramadol for pain and then came in obtunded in acute hypercapnic resp failure. Acute on chronic hypercapnic respiratory failure- initial pH of 7.13 and a PCO2 of 138 on presentation which then improved to 7.28/103 after being on BiPAP all night. Repeat ABG is 7.35/79/143 the day prior to discharge With COPD and OHS due to morbidly obese body habitus with BMI 62, worsened by Tramadol for pain for recent wrist fracture and noncompliance with BiPAP at home -Appreciate [employer] management while in ICU -continue BiPAP with naps and qhs-has at home and is now willing to wear this -Case Management confirmed she already has BiPAP at home rather than CPAP (but is non-compliant)-will order new mask fitting and supplies to promote compliance , changed settings to 16/5-[facility] is to come to the house on Monday -will need Pulm f/u after discharge which is already scheduled in < 2 weeks Recent falls-possibly secondary to hypercapnia/CO2 narcosis/ambulatory dysfunction -PT/OT consults recommending SNF -treating with BiPAP as above -avoid muscle relaxers and opioids, can use tramadol sparingly Chronic hypoxic respiratory failure/COPD -with some wheezing, quit smoking 12 yrs ago, on chronic home O2 6 LNC. Wheezing is improved -continue nebulized bronchodilators, corticosteroids and taper down on discharge -Follow-up with pulmonary as scheduled in 2 weeks Acute on chronic diastolic CHF- with pulm vascular congestion on CXR- ECHO with hyperdynamic EF > 70% but cannot get good views to determine diastolic function , however has noted grade 2 diastolic dysfunction and previous echocardiograms Troponin neg x 2, proBNP elevated at 3000 -has diuresed -53 L so far and her weight is down almost 10 kg since admission -was given intravenous Lasix and after her HCO3 was trending upward and pH went to 7.5, 1 dose Diamox given intravenously -continue po lasix daily-home dose on discharge -continue low Na+ diet, and continue daily weights, I/Os Hyperglycemia secondary to corticosteroids-improved now. HgbA1C 5.5% -Was managed with basal/bolus insulin, but will not need any meds on discharge Left radial head comminuted fracture now s/p closed reduction in ER on 11/04--> continue splint, seen by Ortho here - would judiciously use pain medication -f/u Ortho in 2 weeks in office with xrays Lower extremity cellulitis-right leg--> was on abx prior to admission, then they were stopped for 1 day, she said erythema was worse again--> restarted keflex and much improved -finish out course of keflex x 1 more day at home -improve LE edema with leg elevation, diuretics -Suggested getting measured for compression stockings to be ordered for her that will fit her better to cause less discomfort as they have in the past DVT proph-heparin SQ was administered Patient is a full code Dispo-refusing SNF recommended by PT/OT, plan for return to home today Total Time Spent: Greater than 30 minutes This includes examination of the patient, discharge planning, medication reconciliation, and communication with other providers. Discharge Instructions Please refer to the electronic Patient Visit Report (Discharge Instructions) for additional information. Follow-Up PCP within 1-2 weeks Orthopedics within 2 weeks Pulmonary within 2 weeks Additional Copies To Veronika Nava PA-C; Patric Bourne III, CRNP
[2017-11-10 12:41] VITALS: BP 124/73; PULSE 89; TEMP 36.7; O2SAT 95
[2017-11-11] MEDS ORDERED: INSULIN GLARGINE SOLOSTAR 100 UNITS/ML 3 ML PEN SC SCH (09:00)
== END 2017-11-10 13:20 | disposition home health service (06) | DRG 189 ==
LOC: EDBD 10:41 → C.EDB 10:42 → C.MSICU 15:01 → ENRESERV 15:25 → C.MED 11-08 13:01
PROVIDERS: ADMIT Internal Medicine; ATTEND Family Medicine
DX: J96.22 Acute and chronic respiratory failure with hypercapnia (principal); I50.33 Acute on chronic diastolic (congestive) heart failure; E66.2 Morbid (severe) obesity with alveolar hypoventilation; Z68.43 Body mass index [BMI] 50.0-59.9, adult; E87.3 Alkalosis; L03.115 Cellulitis of right lower limb; S52.572D Other intraarticular fracture of lower end of left radius, subsequent encounter for closed fracture with routine healing; R73.9 Hyperglycemia, unspecified; T38.0X5A Adverse effect of glucocorticoids and synthetic analogues, initial encounter; J44.9 Chronic obstructive pulmonary disease, unspecified; J96.11 Chronic respiratory failure with hypoxia; I11.0 Hypertensive heart disease with heart failure; R06.89 Other abnormalities of breathing; I87.8 Other specified disorders of veins; N28.9 Disorder of kidney and ureter, unspecified; Z51.81 Encounter for therapeutic drug level monitoring; Z79.899 Other long term (current) drug therapy; Z91.19 Patient's noncompliance with other medical treatment and regimen; Z91.81 History of falling; Z88.5 Allergy status to narcotic agent; Z87.891 Personal history of nicotine dependence; Z83.3 Family history of diabetes mellitus; Z82.49 Family history of ischemic heart disease and other diseases of the circulatory system; Z99.81 Dependence on supplemental oxygen; W19.XXXD Unspecified fall, subsequent encounter

== ENCOUNTER → 2018-05-15 | Outpatient (CLI) | payer OTHER ==
[~2018-05-15] MED LIST changes: +KFL500 PO; +MCTP EXT; +PRD10 PO; -TRAM-10 PO
[2018-05-15 13:04] LABS: HEMATOCRIT 42.5 % (37-47); HEMOGLOBIN 13.2 g/dL (12.0-16.0); MEAN CELL VOLUME 89.3 fL (80-100); MEAN CORPUSCULAR HEMOGLOBIN 27.7 pg (25-34); MEAN CORPUSCULAR HGB CONC 31.1 g/dl (32-36); MEAN PLATELET VOLUME 10.8 fL (7.4-10.4); PLATELET COUNT 155 K/uL (130-400); RED CELL DISTRIBUTION WIDTH CV 14.3 % (11.5-14.5); RED CELL DISTRIBUTION WIDTH SD 46.4 fL (36.4-46.3); WHITE BLOOD COUNT 9.02 K/uL (4.8-10.8)
[2018-05-15 13:21] LABS: HEMOGLOBIN A1C 6.9 % (4.5-5.6)
[2018-05-15 13:45] LABS: ALKALINE PHOSPHATASE 106 U/L (45-117); ALT/SGPT 15 U/L (12-78); AST/SGOT 8 U/L (15-37); BLOOD UREA NITROGEN 19 mg/dl (7-18); CALCIUM 8.9 mg/dl (8.5-10.1); CARBON DIOXIDE 40 mmol/L (21-32); CHOLESTEROL 232 mg/dl (0-200); CREATININE 0.72 mg/dl (0.60-1.20); GLUCOSE 156 mg/dl (70-99); LDL CHOLESTEROL CALCULATED 112 mg/dl; POTASSIUM 3.7 mmol/L (3.5-5.1); SODIUM 138 mmol/L (136-145); TOTAL PROTEIN 6.7 gm/dl (6.4-8.2)
== END | disposition home or self-care (01) ==
LOC: C.LABPBG 09:44
PROVIDERS: ATTEND Family Medicine
DX: I25.10 Atherosclerotic heart disease of native coronary artery without angina pectoris (principal); N18.9 Chronic kidney disease, unspecified; E78.1 Pure hyperglyceridemia; E55.9 Vitamin D deficiency, unspecified

== ENCOUNTER 2019-07-30 22:55 | Observation (INO) ==
[2019-07-31 00:08] LABS: Basophils # (auto) 0.01 K/uL (0-0.2); Basophils % (auto) 0.1 %; Eosinophils % (auto) 2.7 %; Hematocrit (blood only) 42.4 % (37-47); Hemoglobin 13.4 g/dL (12.0-16.0); Immature Granulocytes # (auto) 0.03 K/uL (0.00-0.02); Immature Granulocytes % (auto) 0.3 %; Lymphocytes # (auto) 3.38 K/uL (1.2-3.4); Lymphocytes % (auto) 30.5 %; Mean Corpuscular Hemoglobin 27.9 pg (25-34); Mean Corpuscular Hgb Conc 31.6 g/dL (32-36); Mean Corpuscular Volume 88.1 fL (80-100); Mean Platelet Volume 10.4 fL (7.4-10.4); Monocytes # (auto) 0.73 K/uL (0.11-0.59); Monocytes % (auto) 6.6 %; Neutrophils # (auto) 6.64 K/uL (1.4-6.5); Neutrophils % (auto) 59.8 %; Platelet Count 153 K/uL (130-400); RDW Coefficient of Variation 14.7 % (11.5-14.5); RDW Standard Deviation 47.4 fL (36.4-46.3); Red Blood Count 4.81 M/uL (4.2-5.4); White Blood Count 11.09 K/uL (4.8-10.8)
[2019-07-31 00:15] LABS: Partial Thromboplastin Ratio 0.9; Partial Thromboplastin Time 24.8 Seconds (21.0-31.0); Prothrombin Time 9.8 Seconds (9.0-12.0)
[2019-07-31 00:17] LABS: Alanine Aminotransferase 17 U/L (12-78); Albumin Level 3.5 gm/dl (3.4-5.0); Aspartate Aminotransferase 13 U/L (15-37); BUN Creatinine Ratio 14.1 (10-20); Blood Urea Nitrogen 15 mg/dl (7-18); Calcium 9.3 mg/dl (8.5-10.1); Carbon Dioxide 38 mmol/L (21-32); Chloride 95 mmol/L (98-107); Creatinine Clr Calc Pharmacy 62.5 ml/min; Est GFR (African American) 62.8; Est GFR (Non-African American) 54.2; Glucose 132 mg/dl (70-99); Lipase 147 U/L (73-393); Magnesium 1.8 mg/dl (1.8-2.4); Potassium 4.5 mmol/L (3.5-5.1); Sodium 139 mmol/L (136-145)
[2019-07-31 00:28] LABS: Albumin Globulin Ratio 0.9 (0.9-2); Alkaline Phosphatase 138 U/L (45-117); Bilirubin,Total 0.5 mg/dl (0.2-1); Creatine Kinase 125 U/L (26-192); Globulin 3.8 gm/dl (2.5-4.0); NT Pro B Type Natriuretic Pept 604 pg/ml (0-900); Total Protein 7.3 gm/dl (6.4-8.2); Troponin I < 0.015 ng/ml (0-0.045)
--- NOTE | 2019-07-31 00:32 | Emergency Department Note ---
History of Present Illness General Chief complaint: Cardiac Assessment Stated complaint: CHEST HEAVINESS Time Seen by Provider: 07/30/19 23:45 History of Present Illness Maximum Pain Intensity: 2 This is a 63-year-old female presenting to the emergency department for evaluation of chest heaviness that began about 1 to 2 hours prior to arrival. The patient has an extensive past medical history including coronary artery disease, diabetes, COPD, obesity hypoventilation syndrome, and chronic O2 use. The patient states that she went to the bathroom tonight, and when she stood up from using the bathroom felt heaviness in her chest. She has had this in the past, but it did not immediately go away. She contacted EMS and does arrive by ambulance. EMS did provide nitroglycerin x3, which took her heaviness from an 8/10 down to a 2/10. The patient feels almost back to normal at this time. She has not had any recent travel history. No new medication changes. Home Medications Home Medications Medication Instructions Recorded Confirmed Type Oxygen Home #1 ea 03/12/19 07/31/19 History atorvastatin 20 mg tablet 20 mg PO DAILY #30 tab 04/08/19 07/31/19 Rx ergocalciferol (vitamin D2) 50,000 50,000 units PO WEEKLY #12 cap 05/29/19 07/31/19 Rx unit capsule pantoprazole 40 mg tablet,delayed 40 mg PO DAILY #90 tab 06/05/19 07/31/19 Rx release albuterol sulfate 2.5 mg/3 mL 2.5 mg INHALATION Q4H PRN #2 ml 06/09/19 07/31/19 History (0.083 %) solution for nebulization betamethasone dipropionate 0.05 % 1 appln TOPICAL BID #1 gm 06/09/19 07/31/19 History topical ointment budesonide 0.5 mg/2 mL suspension 0.5 mg INHALATION BID #120 ml 06/09/19 07/31/19 History for nebulization docusate sodium 100 mg tablet 100 mg PO BID PRN #60 tab 06/09/19 07/31/19 History furosemide 40 mg tablet 40 mg PO DAILY #90 tab 06/09/19 07/31/19 History mupirocin 2 % topical ointment 1 appln TOPICAL BID #1 gm 06/09/19 07/31/19 History tramadol 50 mg tablet 50 mg PO Q8H PRN #30 tab 06/09/19 07/31/19 History Oxygen Home #1 ea 06/12/19 07/31/19 History inhalational spacing device #1 ea 06/12/19 07/31/19 History albuterol sulfate HFA 90 1 - 2 puffs INH Q6H PRN #18 gm 06/19/19 07/31/19 Rx mcg/actuation aerosol inhaler polyethylene glycol 3350 17 17 gm PO DAILY PRN #255 gm 07/22/19 07/31/19 Rx gram/dose oral powder baclofen 10 mg PO TID PRN 07/31/19 07/31/19 History glycopyrrolate-formoterol [Bevespi 2 puff INHALATION AMPM 07/31/19 07/31/19 History Aerosphere] ipratropium bromide 2.5 ml INHALATION QID 07/31/19 07/31/19 History metformin 1,000 mg PO DAILY 07/31/19 07/31/19 History triamcinolone acetonide 1 applic TOPICAL BID 07/31/19 07/31/19 History Allergies Allergy/AdvReac Type Severity Reaction Status Date / Time codeine AdvReac Mild SHAKING Verified 07/31/19 02:36 oxycodone AdvReac Unknown rash/shakes Verified 07/31/19 02:36 Past Med/Surg History Medical History Vitamin D deficiency (Acute) Type 2 diabetes mellitus (Acute) Pulmonary nodules (Acute) Osteoporosis (Acute) Osteoarthritis (Acute) Obstructive sleep apnea (Acute) Obesity hypoventilation syndrome (Acute) Lymphedema (Acute) Hypertriglyceridemia (Acute) Gastro-esophageal reflux (Acute) Diastolic dysfunction (Acute) Coronary artery disease (Acute) Chronic venous insufficiency (Acute) Chronic respiratory failure (Acute) Chronic renal insufficiency (Acute) Chronic obstructive pulmonary disease (Acute) History of umbilical hernia hernia repair Surgical History History of cholecystectomy Hx of umbilical hernia repair Social History marital status: Feels Safe at Home: Yes Smoking Status: Former smoker Hx Alcohol Use: No Hx Substance Use: No Dental Care, Regularly: No Physical Activity Frequency: Does not Exercise Seatbelt Use: always Review of Systems A total of 10 systems reviewed and were otherwise negative Physical Exam Vital Signs Vital Signs - 24 hr 07/30/19 23:15 07/30/19 23:20 07/30/19 23:38 Temperature 36.7 C Temperature Source Oral Sepsis Recent Fever Within 48 Hours No Sepsis New/Unexplained Change in Mental Status No Sepsis Action Taken by Nursing No Action Required Pulse Rate 104 H Pulse Rate [Apical] 101 H Pulse Rate from SpO2 Sensor Respiratory Rate 24 22 Respiratory Effort / Characteristics Non-Labored Spontaneous Respiratory Depth Normal Respiratory Pattern Regular Blood Pressure 96/45 L Blood Pressure [Left Arm] 90/54 L Blood Pressure Mean 62 Blood Pressure Mean [Left Arm] 66 Pulse Oximetry 96 96 99 Oxygen Delivery Method Nasal Cannula Nasal Cannula Nasal Cannula Oxygen Flow Rate 6 6 6 07/30/19 23:52 07/31/19 00:06 07/31/19 00:31 Temperature Temperature Source Sepsis Recent Fever Within 48 Hours Sepsis New/Unexplained Change in Mental Status Sepsis Action Taken by Nursing Pulse Rate 95 H 103 H 95 H Pulse Rate [Apical] Pulse Rate from SpO2 Sensor 96 H 99 H 95 H Respiratory Rate 18 24 13 Respiratory Effort / Characteristics Respiratory Depth Respiratory Pattern Blood Pressure 122/100 107/70 136/76 Blood Pressure [Left Arm] Blood Pressure Mean 107 82 96 Blood Pressure Mean [Left Arm] Pulse Oximetry 100 100 99 Oxygen Delivery Method Nasal Cannula Nasal Cannula Nasal Cannula Oxygen Flow Rate 6 6 6 07/31/19 01:01 07/31/19 01:31 07/31/19 02:01 Temperature Temperature Source Sepsis Recent Fever Within 48 Hours Sepsis New/Unexplained Change in Mental Status Sepsis Action Taken by Nursing Pulse Rate 87 92 H 87 Pulse Rate [Apical] Pulse Rate from SpO2 Sensor 83 92 H 88 Respiratory Rate 28 H 18 20 Respiratory Effort / Characteristics Respiratory Depth Respiratory Pattern Blood Pressure 119/98 118/103 H 142/89 H Blood Pressure [Left Arm] Blood Pressure Mean 105 108 106 Blood Pressure Mean [Left Arm] Pulse Oximetry 99 96 100 Oxygen Delivery Method Nasal Cannula Nasal Cannula Nasal Cannula Oxygen Flow Rate 6 6 6 VITALS: Vitals are noted on the nurse's note and reviewed by myself. Vital s igns stable. GENERAL: Morbidly obese white female who appears chronically ill. Her nasal cannula O2 is blowing into her mouth at 6 L/min. HEAD: Normocephalic atraumatic. HEART: Regular rate and rhythm LUNGS: Generally decreased breath sounds throughout without obvious crackles ABDOMEN: Positive normal bowel sounds x 4. MUSCULOSKELETAL: No muscle atrophy, erythema, or edema noted. NEURO: Patient was alert and oriented to person place and time. CN II through XII grossly intact. Medical Decision Making Differential Diagnosis Differential diagnosis includes, but is not limited to: Myocardial infarction, dysrhythmia, pericarditis, pneumothorax, aortic aneurysm/dissection, DVT/PE, anxiety, GERD, PUD, electrolyte imbalance, thyroid disorder, pneumonia, bronchitis, pancreatitis, and others Laboratory Data Result diagrams: 07/30/19 22:28 07/30/19 22:28 Lab Results 07/30/19 07/30/19 07/30/19 Range/Units 22:28 22:28 22:28 WBC 11.09 H (4.8-10.8) K/uL RBC 4.81 (4.2-5.4) M/uL Hgb 13.4 (12.0-16.0) g/dL Hct 42.4 (37-47) % MCV 88.1 (80-100) fL MCH 27.9 (25-34) pg MCHC 31.6 L (32-36) g/dL RDW Std Deviation 47.4 H (36.4-46.3) fL RDW Coeff of Ana 14.7 H (11.5-14.5) % Plt Count 153 (130-400) K/uL MPV 10.4 (7.4-10.4) fL Immature Gran % (Auto) 0.3 % Neut % (Auto) 59.8 % Lymph % (Auto) 30.5 % Mes[place] % (Auto) 6.6 % Eos % (Auto) 2.7 % Baso % (Auto) 0.1 % Immature Gran # (Auto) 0.03 H (0.00-0.02) K/uL Neut # (Auto) 6.64 H (1.4-6.5) K/uL Lymph # (Auto) 3.38 (1.2-3.4) K/uL Mes[place] # (Auto) 0.73 H (0.11-0.59) K/uL Eos # (Auto) 0.30 (0-0.5) K/uL Baso # (Auto) 0.01 (0-0.2) K/uL PT 9.8 (9.0-12.0) Seconds INR 1.0 (0.9-1.1) APTT 24.8 (21.0-31.0) Seconds PTT Ratio 0.9 VBG pH (7.36-7.41) VBG pCO2 (38-50) mmHg VBG pO2 mmHg VBG HCO3 mmol/L VBG O2 Saturation % VBG Base Excess mEq/L Barometric Pressure mm/Hg Sodium 139 (136-145) mmol/L Potassium 4.5 (3.5-5.1) mmol/L Chloride 95 L (98-107) mmol/L Carbon Dioxide 38 H (21-32) mmol/L Anion Gap 6.0 (3-11) BUN 15 (7-18) mg/dl Creatinine 1.08 (0.6-1.2) mg/dl Est Cr Clr Drug Dosing 62.5 ml/min Est GFR ( Amer) 62.8 Est GFR (Non-Af Amer) 54.2 BUN/Creatinine Ratio 14.1 (10-20) Glucose 132 H (70-99) mg/dl Calcium 9.3 (8.5-10.1) mg/dl Magnesium 1.8 (1.8-2.4) mg/dl Total Bilirubin 0.5 (0.2-1) mg/dl AST 13 L (15-37) U/L ALT 17 (12-78) U/L Alkaline Phosphatase 138 H (45-117) U/L Total Creatine Kinase 125 (26-192) U/L Troponin I < 0.015 (0-0.045) ng/ml NT-Pro-B Natriuret Pep 604 (0-900) pg/ml Total Protein 7.3 (6.4-8.2) gm/dl Albumin 3.5 (3.4-5.0) gm/dl Globulin 3.8 (2.5-4.0) gm/dl Albumin/Globulin Ratio 0.9 (0.9-2) Lipase 147 (73-393) U/L TSH 7.160 H (0.300-4.500) uIu/ml Free T4 0.90 (0.8-1.6) ng/dl 07/31/19 Range/Units 00:06 WBC (4.8-10.8) K/uL RBC (4.2-5.4) M/uL Hgb (12.0-16.0) g/dL Hct (37-47) % MCV (80-100) fL MCH (25-34) pg MCHC (32-36) g/dL RDW Std Deviation (36.4-46.3) fL RDW Coeff of Ana (11.5-14.5) % Plt Count (130-400) K/uL MPV (7.4-10.4) fL Immature Gran % (Auto) % Neut % (Auto) % Lymph % (Auto) % Mesa % (Auto) % Eos % (Auto) % Baso % (Auto) % Immature Gran # (Auto) (0.00-0.02) K/uL Neut # (Auto) (1.4-6.5) K/uL Lymph # (Auto) (1.2-3.4) K/uL Mes[place] # (Auto) (0.11-0.59) K/uL Eos # (Auto) (0-0.5) K/uL Baso # (Auto) (0-0.2) K/uL PT (9.0-12.0) Seconds INR (0.9-1.1) APTT (21.0-31.0) Seconds PTT Ratio VBG pH 7.29 L (7.36-7.41) VBG pCO2 85 H (38-50) mmHg VBG pO2 26 mmHg VBG HCO3 40 mmol/L VBG O2 Saturation < 60.0 % VBG Base Excess 9.8 mEq/L Barometric Pressure 737.8 mm/Hg Sodium (136-145) mmol/L Potassium (3.5-5.1) mmol/L Chloride (98-107) mmol/L Carbon Dioxide (21-32) mmol/L Anion Gap (3-11) BUN (7-18) mg/dl Creatinine (0.6-1.2) mg/dl Est Cr Clr Drug Dosing ml/min Est GFR ( Amer) Est GFR (Non-Af Amer) BUN/Creatinine Ratio (10-20) Glucose (70-99) mg/dl Calcium (8.5-10.1) mg/dl Magnesium (1.8-2.4) mg/dl Total Bilirubin (0.2-1) mg/dl AST (15-37) U/L ALT (12-78) U/L Alkaline Phosphatase (45-117) U/L Total Creatine Kinase (26-192) U/L Troponin I (0-0.045) ng/ml NT-Pro-B Natriuret Pep (0-900) pg/ml Total Protein (6.4-8.2) gm/dl Albumin (3.4-5.0) gm/dl Globulin (2.5-4.0) gm/dl Albumin/Globulin Ratio (0.9-2) Lipase (73-393) U/L TSH (0.300-4.500) uIu/ml Free T4 (0.8-1.6) ng/dl MDM Narrative Physical exam and history were performed. Nursing notes, EMR, and Medication List were personally reviewed. Patient appears to have atypical chest pain and heaviness that seems to have been relieved with nitroglycerin prehospital. The patient has extensive comorbidities and is generally unhealthy at baseline. IV access was established and labs were obtained. She was placed on the lunchroom monitor. EKG was sinus bradycardia without acute ST elevation. Patient's blood work is as above and was reviewed. She does have a slightly elevated white blood cell count of 11,000. No significant anemia or gross electrolyte imbalance. VBG does show that she is slightly acidotic with elevated PCO2. Glucose is 132. BMP is not elevated. Troponin x1 is negative. Chest x-ray does not show obvious acute findings. Overall the patient does not appear well for discharge home. She does have chest discomfort relieved with nitroglycerin. I discussed the case with the on- call hospitalist, who agreed to evaluate the patient here in the ER. Please see their dictation for further patient course, plan, and disposition. The chart was completed utilizing [employer] Voice Recognition Software. G rammatical errors, random word insertions, pronoun errors, and incomplete sentences are an occasional consequence of this system due to software limitations, ambient noise, and hardware issues. Any formal questions or concerns about the content, text, or information contained within the body of this dictation should be directly addressed to the provider for clarification. . Impression & Plan Atypical chest pain, COPD (chronic obstructive pulmonary disease), Chest heaviness Discharge Plan Visit Data *Final* Discharge Date/Time: 07/31/19 03:02 Chief Complaint: Cardiac Assessment Stated Complaint: CHEST HEAVINESS ED Provider: Ibeth Espino ED Midlevel Provider: Oliver Madden Discharge Problem: Atypical chest pain, COPD (chronic obstructive pulmonary disease), Chest heaviness Patient Disposition: Admitted As Inpatient Discharge Instructions Interventions: ED Discharge Assessment Last Done: 07/31/19 03:02
[2019-07-31 00:34] LABS: Base Excess VBG 9.8 mEq/L; HCO3 VBG 40 mmol/L; Oxygen Saturation VBG < 60.0 %; PCO2 VBG 85 mmHg (38-50); PO2 VBG 26 mmHg; pH VBG 7.29 (7.36-7.41)
[2019-07-31] MEDS ORDERED: CARBOHYDRATES FOR HYPOGLYCEMIA PO PRN (03:24)
[2019-07-31] MEDS ORDERED: MAGNESIUM HYDROXIDE SUSP 30 ML UDC PO PRN (03:24)
[2019-07-31] MEDS ORDERED: ONDANSETRON INJ 2 MG/ML 2 ML VIAL IV PRN (03:24)
[2019-07-31] MEDS ORDERED: DEXTROSE 50% 50 ML SYRINGE IV PRN (03:24)
[2019-07-31] MEDS ORDERED: ACETAMINOPHEN 325 MG TAB PO PRN (03:24)
[2019-07-31] MEDS ORDERED: POLYETHYLENE (MIRALAX) 17 GM PACK PO PRN ×2 (03:24→06:15)
[2019-07-31] MEDS ORDERED: GLUCOSE 10 TABS/TUBE PO PRN (03:24)
[2019-07-31] MEDS ORDERED: ALUMINUM/MAGNESIUM SUSP 30 ML UDC PO PRN (03:24)
[2019-07-31] MEDS ORDERED: GLUCOSE 40% GEL 15 GM TUBE PO PRN (03:24)
[2019-07-31] MEDS ORDERED: GLUCAGON FOR INJ 1 MG VIAL SQ PRN (03:24)
[2019-07-31] MEDS: HEPARIN SOD 5,000 UNIT/0.5 ML VIAL SQ SCH ×2 (05:26→13:51)
--- NOTE | 2019-07-31 06:04 | History & Physical Report ---
Date of Service July 31, 2019 Assessment & Plan (1) Chest heaviness: The patient presents to the emergency department with chest heaviness/CAD- The patient will be admitted to telemetry for serial cardiac enzymes, serial EKG's, cardiac rhythm monitoring and a 2-D echocardiogram with Dopplers. Continue atorvastatin and furosemide. Initial chemistries including troponin normal. She does not remember the last time she had a stress test. Present on Admission?: Yes (2) Chronic respiratory failure: Chronic respiratory failure/6 L oxygen dependent COPD/obesity hypoventilation syndrome/obstructive sleep apnea- Continue albuterol nebulizer, albuterol HFA, Pulmicort Respules, and Bevespi Aerosphere, or substitutions. Present on Admission?: Yes (3) COPD (chronic obstructive pulmonary disease): See above Present on Admission?: Yes (4) Obstructive sleep apnea: See above Present on Admission?: Yes (5) Obesity hypoventilation syndrome: See above Present on Admission?: Yes (6) Type 2 diabetes mellitus: Hold metformin [address] on Accu-Cheks before meals and at bedtime with NovoLog coverage per scale. Check hemoglobin A1c Present on Admission?: Yes (7) Coronary artery disease: See above Present on Admission?: Yes (8) Gastro-esophageal reflux: Continue pantoprazole 40 mg p.o. daily Present on Admission?: Yes History of Present Illness Chief Complaint: The patient presents to the emergency department with the onset of chest heaviness that began about 2 hours prior to arrival. Primary Care Provider: Beatriz Baker DO The patient is a 63-year-old female with a past medical history including obesity hypoventilation syndrome, 6 L oxygen dependent COPD, morbid obesity, GERD, hyperlipidemia, and CHF who presents the emergency department with complaint of the development of chest heaviness about 2 hours prior to arrival. Patient had improvement with aspirin and nitroglycerin provided by EMS. She denies any radiation of discomfort or pain to jaw or arm. Of note, patient wears her nasal cannula oxygen in her mouth. Allergies Allergy/AdvReac Type Severity Reaction Status Date / Time codeine AdvReac Mild SHAKING Verified 07/31/19 02:36 oxycodone AdvReac Unknown rash/shakes Verified 07/31/19 02:36 Home Medications Home Medications Medication Instructions Recorded Confirmed Type Oxygen Home #1 ea 03/12/19 06/12/19 History atorvastatin 20 mg tablet 20 mg PO DAILY #30 tab 04/08/19 06/12/19 Rx ergocalciferol (vitamin D2) 50,000 50,000 units PO WEEKLY #12 cap 05/29/19 06/12/19 Rx unit capsule pantoprazole 40 mg tablet,delayed 40 mg PO DAILY #90 tab 06/05/19 06/12/19 Rx release albuterol sulfate 2.5 mg/3 mL 2.5 mg INHALATION Q4H PRN #2 ml 06/09/19 06/12/19 History (0.083 %) solution for nebulization betamethasone dipropionate 0.05 % 1 appln TOPICAL BID #1 gm 06/09/19 06/12/19 History topical ointment budesonide 0.5 mg/2 mL suspension 0.5 mg INHALATION BID #120 ml 06/09/19 06/12/19 History for nebulization docusate sodium 100 mg tablet 100 mg PO BID PRN #60 tab 06/09/19 06/12/19 History furosemide 40 mg tablet 40 mg PO DAILY #90 tab 06/09/19 06/12/19 History mupirocin 2 % topical ointment 1 appln TOPICAL BID #1 gm 06/09/19 06/12/19 History tramadol 50 mg tablet 50 mg PO Q8H PRN #30 tab 06/09/19 06/12/19 History Oxygen Home #1 ea 06/12/19 06/12/19 History inhalational spacing device #1 ea 06/12/19 06/12/19 History albuterol sulfate HFA 90 1 - 2 puffs INH Q6H PRN #18 gm 06/19/19 Rx mcg/actuation aerosol inhaler polyethylene glycol 3350 17 17 gm PO DAILY PRN #255 gm 07/22/19 Rx gram/dose oral powder baclofen 10 mg PO TID PRN 07/31/19 07/31/19 History glycopyrrolate-formoterol [Bevespi 2 puff INHALATION AMPM 07/31/19 07/31/19 History Aerosphere] ipratropium bromide 2.5 ml INHALATION QID 07/31/19 07/31/19 History metformin 1,000 mg PO DAILY 07/31/19 07/31/19 History triamcinolone acetonide 1 applic TOPICAL BID 07/31/19 07/31/19 History Past Med/Surg History Medical History Vitamin D deficiency (Acute) Type 2 diabetes mellitus (Acute) Pulmonary nodules (Acute) Osteoporosis (Acute) Osteoarthritis (Acute) Obstructive sleep apnea (Acute) Obesity hypoventilation syndrome (Acute) Lymphedema (Acute) Hypertriglyceridemia (Acute) Gastro-esophageal reflux (Acute) Diastolic dysfunction (Acute) Coronary artery disease (Acute) Chronic venous insufficiency (Acute) Chronic respiratory failure (Acute) Chronic renal insufficiency (Acute) Chronic obstructive pulmonary disease (Acute) History of umbilical hernia hernia repair Surgical History History of cholecystectomy Hx of umbilical hernia repair Social History Preferred Language: [place]i Communication Ability: Effective Bleach Boiler Packer Required: No Beliefs That Will Affect Care: None marital status: Current Living Situation: Family Other Information That Helps Us Care for You: No Feels Safe at Home: Yes Safety Concerns: Feels Safe At This Time Smoking Status: Unknown if ever smoked Hx Alcohol Use: No Hx Substance Use: No Dental Care, Regularly: No Physical Activity Frequency: Does not Exercise Seatbelt Use: always Review of Systems Review of Systems: The patient denies palpitations, cough, lower extremity swelling, sore throat, fevers, chills, sweats, nausea, vomiting, diarrhea , constipation, abdominal pain, pelvic pain, blood in urine or stool, dysuria, urinary frequency or urgency, lightheadedness, dizziness, headache, memory loss, loss of consciousness, rash, abnormal bruising or bleeding, imbalance, focal weakness, numbness or tingling in arms or legs, generalized arthralgias or myalgias, back or neck pain, or night sweats. The review of systems is otherwise negative other than for that already noted above, and at least 10 systems have been reviewed. Physical Exam Physical Exam: The patient is awake, alert and oriented 3, normocephalic and atraumatic, lying in bed and in no acute distress. HEENT--PERRL, EOMI, mucous membranes and oropharynx normal. Neck--No JVD. No bruits. Thyroid normal, trachea midline, no adenopathy. Heart--normal S1 and S2. No murmurs, rubs or gallops. Lungs--decreased breath sounds throughout. Abdomen--normal bowel sounds and soft. Nontender. Nondistended. Morbid obesity. Extremities--no cyanosis or clubbing. No edema. Dermatologic--normal skin turgor, normal color, no abnormal lymph nodes, no rash. Neurologic--cranial nerves II through XII grossly intact. Rheumatologic--normal range of motion. Psychiatric--normal affect. Results & Data Vital Signs (Past 12 Hours) Vital Signs Temp Pulse Pulse Resp BP BP Pulse Ox 07/31/19 04:24 87 20 99 07/31/19 04:17 86 115/74 07/31/19 04:08 96 H 07/31/19 03:24 07/31/19 03:15 97.7 F 96 H 20 123/62 97 07/31/19 02:32 87 20 156/100 H 100 07/31/19 02:01 87 20 142/89 H 100 07/31/19 01:31 92 H 18 118/103 H 96 07/31/19 01:01 87 28 H 119/98 99 07/31/19 00:31 95 H 13 136/76 99 07/31/19 00:06 103 H 24 107/70 100 07/30/19 23:52 95 H 18 122/100 100 07/30/19 23:38 101 H 22 90/54 L 99 07/30/19 23:20 96 07/30/19 23:15 98.1 F 104 H 24 96/45 L 96 Pulse Ox 07/31/19 04:24 07/31/19 04:17 07/31/19 04:08 07/31/19 03:24 100 07/31/19 03:15 07/31/19 02:32 07/31/19 02:01 07/31/19 01:31 07/31/19 01:01 07/31/19 00:31 07/31/19 00:06 07/30/19 23:52 07/30/19 23:38 07/30/19 23:20 07/30/19 23:15 Laboratory Results Laboratory Results WBC 11.09 K/uL (4.8-10.8) H 07/30/19 22:28 RBC 4.81 M/uL (4.2-5.4) 07/30/19: Hgb 13.4 g/dL (12.0-16.0) 07/30/19: Hct 42.4 % (37-47) 07/30/19: MCV 88.1 fL (80-100) 07/30/19: MCH 27.9 pg (25-34) 07/30/19: MCHC 31.6 g/dL (32-36) L 07/30/19: RDW Std Deviation 47.4 fL (36.4-46.3) H 07/30/19: RDW Coeff of Ana 14.7 % (11.5-14.5) H 07/30/19: Plt Count 153 K/uL (130-400) 07/30/19: MPV 10.4 fL (7.4-10.4) 07/30/19: Immature Gran % (Auto) 0.3 % 07/30/19: Neut % (Auto) 59.8 % 07/30/19: Lymph % (Auto) 30.5 % 07/30/19: Hall % (Auto) 6.6 % 07/30/19: Eos % (Auto) 2.7 % 07/30/19: Baso % (Auto) 0.1 % 07/30/19: Immature Gran # (Auto) 0.03 K/uL (0.00-0.02) H 07/30/19: Neut # (Auto) 6.64 K/uL (1.4-6.5) H 07/30/19: Lymph # (Auto) 3.38 K/uL (1.2-3.4) 07/30/19: Hall # (Auto) 0.73 K/uL (0.11-0.59) H 07/30/19: Eos # (Auto) 0.30 K/uL (0-0.5) 07/30/19: Baso # (Auto) 0.01 K/uL (0-0.2) 07/30/19: PT 9.8 Seconds (9.0-12.0) 07/30/19 22: INR 1.0 (0.9-1.1) 07/30/19 22: APTT 24.8 Seconds (21.0-31.0) 07/30/19 22: PTT Ratio 0.9 07/30/19 22:28 VBG pH 7.29 (7.36-7.41) L 07/31/19 00:06 VBG pCO2 85 mmHg (38-50) H 07/31/19 00:06 VBG pO2 26 mmHg 07/31/19 00:06 VBG HCO3 40 mmol/L 07/31/19 00:06 VBG O2 Saturation < 60.0 % 07/31/19 00:06 VBG Base Excess 9.8 mEq/L 07/31/19 00:06 Barometric Pressure 737.8 mm/Hg 07/31/19 00:06 Sodium 139 mmol/L (136-145) 07/30/19 22:28 Potassium 4.5 mmol/L (3.5-5.1) 07/30/19 22: Chloride 95 mmol/L (98-107) L 07/30/19 22: Carbon Dioxide 38 mmol/L (21-32) H 07/30/19 22:28 Anion Gap 6.0 (3-11) 07/30/19 22:28 BUN 15 mg/dl (7-18) 07/30/19 22: Creatinine 1.08 mg/dl (0.6-1.2) 07/30/19 22: Est Cr Clr Drug Dosing 62.5 ml/min 07/30/19 22:28 Est GFR ( Amer) 62.8 07/30/19 22:28 Est GFR (Non-Af Amer) 54.2 07/30/19 22:28 BUN/Creatinine Ratio 14.1 (10-20) 07/30/19 22:28 Glucose 132 mg/dl (70-99) H 07/30/19 22:28 Calcium 9.3 mg/dl (8.5-10.1) 07/30/19 22:28 Magnesium 1.8 mg/dl (1.8-2.4) 07/30/19 22:28 Total Bilirubin 0.5 mg/dl (0.2-1) 07/30/19 22:28 AST 13 U/L (15-37) L 07/30/19 22:28 ALT 17 U/L (12-78) 07/30/19 22:28 Alkaline Phosphatase 138 U/L (45-117) H 07/30/19 22:28 Total Creatine Kinase 125 U/L (26-192) 07/30/19 22:28 Troponin I < 0.015 ng/ml (0-0.045) 07/30/19 22:28 NT-Pro-B Natriuret Pep 604 pg/ml (0-900) 07/30/19 22:28 Total Protein 7.3 gm/dl (6.4-8.2) 07/30/19 22: Albumin 3.5 gm/dl (3.4-5.0) 07/30/19 22: Globulin 3.8 gm/dl (2.5-4.0) 07/30/19 22:28 Albumin/Globulin Ratio 0.9 (0.9-2) 07/30/19 22:28 Lipase 147 U/L (73-393) 07/30/19 22:28 TSH 7.160 uIu/ml (0.300-4.500) H 07/30/19 22:28 Free T4 0.90 ng/dl (0.8-1.6) 07/30/19 22:28 Code Status & VTE Plan Code Status Full code VTE Prophylaxis Plan VTE Prophylaxis will be ordered: Yes PG Care Time/CCT Total # of Minutes Spent Total Time Spent with Patient: Total time spent is greater than 50% in coordination of care (as documented) at patient's floor/unit and/or counseling patient:
[2019-07-31] MEDS ORDERED: BACLOFEN 10 MG TAB PO PRN (06:15)
[2019-07-31] MEDS ORDERED: TRAMADOL HCL 50 MG TABLET PO PRN (06:15)
[2019-07-31] MEDS ORDERED: DOCUSATE SODIUM 100 MG CAP PO PRN (06:15)
[2019-07-31] MEDS ORDERED: ALBUTEROL 0.083% NEBU SOLN 3 ML VIAL INH PRN (06:15)
--- NOTE | 2019-07-31 06:30 | XRay Report ---
XR chest 1V portable HISTORY: 63 years-old Female sob, chest heavy acute shortness of breath with chest pain COMPARISON: Chest CT 03/11/2019, chest radiograph 11/07/2017 TECHNIQUE: Portable AP view of the chest FINDINGS: Cardiac silhouette is mildly enlarged, unchanged. Emphysema with mild chronic interstitial coarsening and hyperinflation. Linear subsegmental bibasilar opacities suggest atelectasis. Chronic blunting of the costophrenic angles. No pneumothorax, pleural effusion or overt pulmonary edema. Degenerative ch anges of the shoulders and spine. IMPRESSION: Emphysema without acute process. The above report was generated using voice recognition software. It may contain grammatical, syntax o r spelling errors. Electronically signed by: Edy Wells M.D. 07/31/2019 6:28 AM
[2019-07-31] MEDS ORDERED: BUDESONIDE 0.5 MG/2 ML VIAL (PULMICORT) INH SCH (07:00)
[2019-07-31] MEDS: IPRATROPIUM BROMIDE NEB SOLN 0.02% 2.5 ML VIAL INH SCH ×2 (07:23→11:09)
[2019-07-31] MEDS: METFORMIN HCL ER 500 MG TABCR PO SCH ×2 (08:19→10:07)
[2019-07-31] MEDS: MUPIROCIN 2% OINT 22 GM TUBE TOP SCH ×2 (08:19→10:04)
[2019-07-31] MEDS: BETAMETHASONE DIP AUG 0.05% OINT 15 GM TUBE TOP SCH ×2 (08:20→10:04)
[2019-07-31] MEDS: TRIAMCINOLONE ACET 0.1% CR 15 GM TUBE TOP SCH ×2 (08:20→10:04)
[2019-07-31 08:22] LABS: Appearance Urine Cloudy (Clear); Bacteria Urine Automated 1+ (Negative); Blood Urine Negative (Negative); Color Urine Dark Yellow; Epithelial Cell Urine Auto >30 /lpf (0-5); Glucose Urine UA Negative (Negative); Ketones Urine Trace (Negative); Leukocyte Esterase Urine Trace (Negative); Nitrite Urine Negative (Negative); Protein Urine Trace (Negative); RBC Urine Automated 0-4 /hpf (0-4); Specific Gravity Urine 1.025 (1.000-1.030); Urobilinogen Urine Negative (Negative)
[2019-07-31] MEDS: INSULIN ASPART 100 UNITS/ML 3 ML PEN SC SCH ×2 (08:22→11:57)
[2019-07-31 08:24] LABS: Estimated Average Glucose 126 mg/dl
[2019-07-31 08:29] LABS: Bilirubin Urine Negative (Negative); Ictotest Urine Negative (Negative)
[2019-07-31] MEDS ORDERED: ASPIRIN 81 MG ECTAB PO SCH (09:00)
[2019-07-31] MEDS ORDERED: PANTOprazole 40 MG TAB PO SCH (09:00)
[2019-07-31] MEDS ORDERED: ATORVASTATIN 20 MG TAB PO SCH (09:00)
[2019-07-31] MEDS ORDERED: FUROSEMIDE 40 MG TAB PO SCH (09:00)
--- NOTE | 2019-07-31 16:09 | Discharge Summary ---
Date of Service July 31, 2019 Admission HPI Per Admitting Provider The patient is a 63-year-old female with a past medical history including obesity hypoventilation syndrome, 6 L oxygen dependent COPD, morbid obesity, GERD, hyperlipidemia, and CHF who presents the emergency department with complaint of the development of chest heaviness about 2 hours prior to arrival. Patient had improvement with aspirin and nitroglycerin provided by EMS. She denies any radiation of discomfort or pain to jaw or arm. Of note, patient wears her nasal cannula oxygen in her mouth. Principal Diagnosis Chest pain, atypical Discharge Exam Constitutional WD/WN, vitals as above + overweight Eyes PERRL, conjunctivae normal, anicteric sclerae ENMT external ear and nose normal, oropharynx normal Neck trachea midline, no thyromegaly Respiratory normal respiratory effort, lungs clear to auscultation Cardiovascular RRR, no murmur, no edema Gastrointestinal (Abdomen) normal bowel sounds, soft, nontender, no hepatosplenomegaly Musculoskeletal no cyanosis or clubbing, extremities motor strength 5/5 Skin no rashes, warm and dry Neurologic patellar DTR's 2+ bilat, sensation intact and PERRL, EOMI, accommodation nl, no face palsy, no dysarthria Psychiatric A+Ox3, euthymic affect Lymphatic no cervical or axillary lymphadenopathy Discharge Data Allergies Allergy/AdvReac Type Severity Reaction Status Date / Time codeine AdvReac Mild SHAKING Verified 07/31/19 02:36 oxycodone AdvReac Unknown rash/shakes Verified 07/31/19 02:36 Consultations 07/31/19 01:53 ED Decision to Admit Stat 07/31/19 03:24 Consult Case Management - Discharge Planning Routine Hospital Course (1) Chest heaviness: The patient presents to the emergency department with chest heaviness at rest, resolved with nitro troponin negative x 3 sets, no ischemic changes on EKG echo with preserved EF, no wall motion abnormalities can d/c to home, follow up with PCP, could consider a dobutamine stress echo if the patient has further chest pain Continue atorvastatin (2) Chronic respiratory failure: Chronic respiratory failure/6 L oxygen dependent COPD/obesity hypoventilation syndrome/obstructive sleep apnea- Continue albuterol nebulizer, albuterol HFA, Pulmicort Respules, and Bevespi Aerosphere, or substitutions. no respiratory distress walking around the room with little difficulty (3) COPD (chronic obstructive pulmonary disease): See above (4) Obstructive sleep apnea: See above (5) Obesity hypoventilation syndrome: See above (6) Type 2 diabetes mellitus: resume Metformin on discharge managed with Novolog SS while inpatient (7) Coronary artery disease: Lipitor recommend that she resume taking a baby aspirin (8) Gastro-esophageal reflux: Continue pantoprazole 40 mg p.o. daily Total Time Total Time Spent Total Time Spent (In Minutes): 32 Total Time Includes: Examination of the Patient, Discharge Planning and Medication Reconciliation Discharge Plan Discharge Items Patient Disposition: Home - Self-Care Reason For Visit: PRECORDIAL CHEST PAIN Discharge Diagnosis: Chest pain, no evidence of cardiac ischemia Chronic hypoxia Condition on Discharge: Good Goals: follow up with Dr. Baker, consider referral for Dobutamine stress echocardiogram Activity: Resume your previous activity Non-emergency contact: Primary Care Provider Call non-emergency contact if: you have any medication questions and your symptoms worsen Follow-up/Referrals: Beatriz Baker, [Primary Care Provider] - Diet: Carb Consistent or DM2 and Heart Healthy Addtl Attending Provider Instructions: Medications: no changes if you don't take a daily aspirin would recommend starting one Chest pain/pressure no evidence of heart attack on EKG or on troponin testing (negative for three sets) echocardiogram is normal, preserved ejection fraction, no wall motion abnormalities recommend discharge to home and follow up with Dr Baker for referral for stress test Pending Studies at Discharge: No Stand-Alone Forms: My [employer], Smoking Cessation Medications and DC Order Prescriptions: Continued atorvastatin 20 mg tablet 20 mg PO DAILY Qty: 30 RF: 5 ergocalciferol (vitamin D2) 50,000 unit capsule 50,000 units PO WEEKLY Qty: 12 RF: 3 pantoprazole 40 mg tablet,delayed release (DR/EC) 40 mg PO DAILY Qty: 90 RF: 1 albuterol sulfate [Ventolin HFA] 90 mcg/actuation HFA aerosol inhaler 1 - 2 puffs INH Q6H PRN (Reason: shortness of breath or wheezing) Qty: 18 RF: 5 polyethylene glycol 3350 17 gram/dose powder 17 gm PO DAILY PRN (Reason: constipation) Qty: 255 RF: 2 albuterol sulfate 2.5 mg /3 mL (0.083 %) solution for nebulization 2.5 mg inhalation Q4H PRN (Reason: wheezing) Qty: 2 RF: 0 betamethasone dipropionate 0.05 % ointment 1 appln topical BID Qty: 1 RF: 0 mupirocin 2 % ointment 1 appln topical BID Qty: 1 RF: 0 budesonide 0.5 mg/2 mL suspension for nebulization 0.5 mg inhalation BID Qty: 120 RF: 0 Vortex Holding Chamber spacer .ROUTE .MEDSUPPLY Qty: 1 RF: 0 Oxygen Home Liters Per Minute .ROUTE .MEDSUPPLY Qty: 1 RF: 0 Oxygen Home Liters Per Minute .ROUTE .MEDSUPPLY Qty: 1 RF: 0 docusate sodium 100 mg tablet 100 mg PO BID PRN (Reason: Constipation) Qty: 60 RF: 0 furosemide 40 mg tablet 40 mg PO DAILY Qty: 90 RF: 0 tramadol 50 mg tablet 50 mg PO Q8H PRN (Reason: pain) Qty: 30 RF: 0 baclofen 10 mg tablet 10 mg PO TID PRN (Reason: Muscle Spasm) RF: 0 ipratropium bromide 0.02 % Solution 2.5 ml INHALATION QID RF: 0 Bevespi Aerosphere 9-4.8 mcg Hfa Aerosol Inhaler 2 puff INHALATION AMPM RF: 0 metformin 500 mg tablet extended release 24 hr 1,000 mg PO DAILY RF: 0 triamcinolone acetonide 0.1 % Cream 1 applic TOPICAL BID RF: 0 Discharge Orders: Discharge Order (Routine); Ordered 07/31/19 Ordered By: Jean-Pierre Paulino Admission Data Admit Date/Time: 07/31/19 02:13 Attending Provider: Jean-Pierre Paulino Admit Provider: Harmeet Steward Primary Care Provider: Beatriz Baker Other Providers: Harmeet Steward Other Interventions: Discharge Summary Assessment (RN) Last Done: 07/31/19 15:51 DC Date/Time DO NOT enter until pt leaves facility: 07/31/19 16:08
== END 2019-07-31 16:08 | disposition home or self-care (01) ==
LOC: 2S 22:55 → ED 22:55 → SUATTDRO 07-31 02:13 → 2S 07-31 03:02

== ENCOUNTER 2019-12-16 11:36 | Inpatient (IN) ==
[2019-12-16] MEDS ORDERED: LEVOFLOXACIN/D5W 750 MG/150 ML BAG IV STA (11:54)
[2019-12-16] MEDS ORDERED: ALBUT/IPRATROP 3MG/0.5MG NEB 3 ML VIAL INH STA (11:54)
[2019-12-16] MEDS ORDERED: methylPREDNISolone 125 MG/2 ML VIAL IV STA (11:54)
[2019-12-16] MEDS ORDERED: SODIUM CHLORIDE 0.9% 1000ML 2,000 ML IV SCH (12:00)
[2019-12-16 12:12] LABS: Hematocrit (blood only) 44.2 % (37-47); Mean Corpuscular Hemoglobin 28.7 pg (25-34); Mean Corpuscular Hgb Conc 31.7 g/dL (32-36); Mean Corpuscular Volume 90.6 fL (80-100); Mean Platelet Volume 10.7 fL (7.4-10.4); Platelet Count 174 K/uL (130-400); RDW Coefficient of Variation 14.8 % (11.5-14.5); Red Blood Count 4.88 M/uL (4.2-5.4)
--- NOTE | 2019-12-16 12:13 | XRay Report ---
XR chest 1V portable CLINICAL HISTORY: Dyspnea dyspnea COMPARISON STUDY: 07/31/2019 FINDINGS: Parenchymal infiltrate right base. Smaller parenchymal infiltrate left base. Prominent pulm onary vasculature IMPRESSION: . Right and to a lesser extent left basilar parenchymal infiltrates. Pulmonary vascular congestion. ACT 112: Negative or not required by law. The above report was generated using voice recognition software. It may contain grammatical, syntax or spelling errors. Electronically signed by: Naren Madrid M.D. 12/16/2019 12:12 PM
[2019-12-16 12:21] LABS: Alanine Aminotransferase 46 U/L (12-78); Albumin Level 3.2 gm/dl (3.4-5.0); Aspartate Aminotransferase 48 U/L (15-37); BUN Creatinine Ratio 14.4 (10-20); Blood Urea Nitrogen 20 mg/dl (7-18); Calcium 9.3 mg/dl (8.5-10.1); Carbon Dioxide 32 mmol/L (21-32); Chloride 102 mmol/L (98-107); Creatinine Clr Calc Pharmacy 55.7 ml/min; Est GFR (African American) 45.1; Est GFR (Non-African American) 38.9; Glucose 187 mg/dl (70-99); Magnesium 1.5 mg/dl (1.8-2.4); Potassium 4.6 mmol/L (3.5-5.1); Sodium 139 mmol/L (136-145)
[2019-12-16 12:23] LABS: Basophils # (auto) 0.02 K/uL (0-0.2); Basophils % (auto) 0.1 %; Eosinophils # (auto) 0.02 K/uL (0-0.5); Eosinophils % (auto) 0.1 %; INR 1.1 (0.9-1.1); Immature Granulocytes # (auto) 0.29 K/uL (0.00-0.02); Immature Granulocytes % (auto) 0.8 %; Lymphocytes # (auto) 2.98 K/uL (1.2-3.4); Lymphocytes % (auto) 8.3 %; Monocytes # (auto) 1.69 K/uL (0.11-0.59); Monocytes % (auto) 4.7 %; Partial Thromboplastin Ratio 0.9; Partial Thromboplastin Time 26.2 Seconds (21.0-31.0); Prothrombin Time 11.8 Seconds (9.0-12.0)
[2019-12-16 12:26] LABS: Albumin Globulin Ratio 0.8 (0.9-2); Alkaline Phosphatase 112 U/L (45-117); Bilirubin,Total 0.7 mg/dl (0.2-1); Globulin 4.1 gm/dl (2.5-4.0); Total Protein 7.3 gm/dl (6.4-8.2); Troponin I < 0.015 ng/ml (0-0.045)
[2019-12-16 12:39] LABS: Influenza A virus by PCR Neg for Influ A (Neg); Influenza B virus by PCR Neg for Influ B (Neg)
[2019-12-16] MEDS ORDERED: STAT IV Infusion **Titration per Protocol STA (12:55)
[2019-12-16] MEDS ORDERED: cefTRIAXone SODIUM 1,000 MG/50 ML BAG IV STA (12:55)
--- NOTE | 2019-12-16 14:00 | History & Physical Report ---
Date of Service December 16, 2019 Assessment & Plan (1) Acute and chronic respiratory failure: Patient with acute on chronic respiratory failure, consider COPD exacerbation, pneumonia (bacterial versus viral). Patient has a history of chronic respiratory failure and is on 5 L nasal cannula at home. She also has a history of OHS and ROZ. Plan will be to admit the patient to the ICU. Continue BiPAP support as ordered. If the patient continues to worsen, consider elective intubation. Patient was given Rocephin and Levaquin in the emergency room along with a loading dose of Solu-Medrol l. For now, will broaden spectrum to cefepime pending culture, influenza, and biofire results. Further recommendations per storage management consultant. (2) Type 2 diabetes mellitus: Patient's blood sugar is mildly elevated. Will order sliding scale. Should be n.p.o. for now. (3) Diastolic dysfunction: Patient does not have any evidence of acute CHF at this time. She is on Lasix 40 mg daily, will hold secondary to hypotension. Continue hydration to maintain blood pressure. Consideration of pressors if blood pressure drops further. (4) Coronary artery disease: Patient will be n.p.o. and other medications will need to be held. She is on pravastatin as an outpatient. History of Present Illness Primary Care Provider: Beatriz Baker DO This is a 63-year-old female with past medical history of COPD, chronic respiratory failure on 5 L nasal cannula at home that presents today with confusion and acute hypoxia. Patient is altered and cannot provide any history. Patient's family member at bedside. She tells me that the patient has been having problems over the past 10 days. This initially manifested as a cough. She does note that the patient had multiple sick contacts including her niece and her son who subsequently tested positive for influenza A. Daughter tells me the patient started having confusion approximately 24 hours ago. She did seem to improve during the day but this morning was significantly altered and agitated. At that point she called the ambulance and patient was brought in by EMS. Patient apparently arrived at the hospital with BiPAP in place by EMS. Her blood pressure was low at 83/68. She remains tachycardic in the 1 teens to 120s , appears to be sinus tachycardia on monitor. Blood pressure is improved with fluids and treatment of her underlying hypoxia. I did discuss with the ER physician, plan is to admit the patient to the ICU. She is tested negative for influenza and bio fire will be ordered, consideration towards COVID-19 testing as well. Allergies Allergy/AdvReac Type Severity Reaction Status Date / Time codeine AdvReac Mild SHAKING Verified 12/16/19 13:21 oxycodone AdvReac Unknown rash/shakes Verified 12/16/19 13:21 Home Medications Home Medications Medication Instructions Recorded Confirmed Type Oxygen Home #1 ea 03/12/19 10/14/19 History ergocalciferol (vitamin D2) 1,250 50,000 units PO WEEKLY #12 cap 05/29/19 12/16/19 Rx mcg (50,000 unit) capsule pantoprazole 40 mg tablet,delayed 40 mg PO DAILY #90 tab 06/05/19 12/16/19 Rx release betamethasone dipropionate 0.05 % 1 appln TOPICAL BID #1 gm 06/09/19 12/16/19 History topical ointment docusate sodium 100 mg tablet 100 mg PO BID PRN #60 tab 06/09/19 12/16/19 History furosemide 40 mg tablet 40 mg PO DAILY #90 tab 06/09/19 12/16/19 History tramadol 50 mg tablet 50 mg PO Q8H PRN #30 tab 06/09/19 12/16/19 History Oxygen Home #1 ea 06/12/19 10/14/19 History inhalational spacing device #1 ea 06/12/19 10/14/19 History albuterol sulfate 90 mcg/actuation 1 - 2 puffs INH Q6H PRN #18 gm 06/19/19 12/16/19 Rx aerosol inhaler polyethylene glycol 3350 17 17 gm PO DAILY PRN #255 gm 07/22/19 12/16/19 Rx gram/dose oral powder BiPap Machine #1 ea 09/02/19 10/14/19 Rx albuterol sulfate 2.5 mg INHALATION Q4H PRN #2 ml 09/10/19 12/16/19 Rx ipratropium bromide 0.02 % 2.5 ml INHALATION QID #62.5 ml 09/10/19 12/16/19 Rx solution for inhalation metformin 500 mg tablet,extended 1,000 mg PO DAILY #180 tab 09/19/19 12/16/19 Rx release 24 hr pravastatin 80 mg tablet 80 mg PO DAILY #30 tab 10/09/19 12/16/19 Rx glycopyrrolate 9 mcg-formoterol 2 puff INHALATION AMPM #10.7 gm 10/14/19 12/16/19 Rx 4.8 mcg HFA aerosol inhaler budesonide 0.5 mg/2 mL suspension 0.5 mg INHALATION BID #120 ml 10/16/19 12/16/19 Rx for nebulization mupirocin 2 % topical ointment 1 appln TOPICAL BID #22 gm 11/21/19 12/16/19 Rx triamcinolone acetonide 0.1 % 1 applic TOPICAL BID #80 gm 11/21/19 12/16/19 Rx topical cream baclofen 10 mg tablet 10 mg PO TID PRN #90 tab 12/02/19 12/16/19 Rx Past Med/Surg History Medical History (Updated 12/16/19 @ 14:06 by Que Sena DO) Chronic renal insufficiency (Acute) Chronic respiratory failure Chronic venous insufficiency Coronary artery disease (Acute) Diastolic dysfunction (Acute) Gastro-esophageal reflux (Acute) History of umbilical hernia hernia repair Hypertriglyceridemia Lymphedema (Acute) Obesity hypoventilation syndrome (Acute) Obstructive sleep apnea Osteoarthritis Osteoporosis (Acute) Pulmonary nodules (Acute) Type 2 diabetes mellitus (Acute) Vitamin D deficiency (Acute) Surgical History History of cholecystectomy Hx of umbilical hernia repair Family History (Updated 09/10/19 @ 13:36 by Sandy Suarez) Sister Colorectal cancer Breast cancer Denies family history of Ovarian cancer Prostate cancer Myocardial infarction Social History Preferred Language: Lao Communication Ability: Effective Color Checker Required: No Beliefs That Will Affect Care: None marital status: Current Living Situation: Family Feels Safe at Home: Yes Smoking Status: Unknown if ever smoked Hx Alcohol Use: No Hx Substance Use: No Dental Care, Regularly: No Physical Activity Frequency: Does not Exercise Seatbelt Use: always Review of Systems Review of Systems: Unobtainable due to reduced consciousness Physical Exam Constitutional: + obese and + altered mental status; no acute distress Neck: trachea midline, no thyromegaly Respiratory: normal respiratory effort; no dullness to percussion Auscultation: + diminished lung sounds and + wheezes; no crackles, no rales and no rhonchi Cardiovascular: Rate/Rhythm: regular rhythm and + tachycardic Heart Sounds: normal S1 and normal S2 Extremities: no pedal edema Gastrointestinal (Abdomen): Inspection/Auscultation: abdomen normal to inspection Percussion/Palpation: abdomen soft; abdomen nontender, no guarding, abdomen not rigid and no hepatosplenomegaly Skin: no rashes, warm and dry Neurologic: + obtunded Psychiatric: Orientation: + not alert and + not oriented x 3 Results & Data Vital Signs (Past 12 Hours) Vital Signs Temp Pulse Pulse Resp BP BP Pulse Ox 12/16/19 13:32 123 H 22 125/75 100 12/16/19 13:12 107/63 12/16/19 13:09 128 H 24 111/76 98 12/16/19 12:28 122 H 20 92/71 L 100 12/16/19 12:11 129 H 18 94/69 L 98 12/16/19 11:58 128 H 30 H 97 12/16/19 11:55 128 H 30 H 97 12/16/19 11:54 96 12/16/19 11:52 37.2 C 134 H 28 H 83/64 L 98 Laboratory Results White count is 36.1, hemoglobin is 14, hematocrit is 44.2, platelet 174. INR is 1.1. Sodium is 139, potassium 4.6, chloride 102, CO2 is 32, BUN is 20 with a creatinine of 1.42. Glucose is 187. 91.5. Troponin is nondetectable. Influenza and Biofire was sent and is pending. Diagnostic Findings XR chest 1V portable CLINICAL HISTORY: Dyspnea dyspnea COMPARISON STUDY: 07/31/2019 FINDINGS: Parenchymal infiltrate right base. Smaller parenchymal infiltrate left base. Prominent pulmonary vasculature IMPRESSION: . Right and to a lesser extent left basilar parenchymal infiltrates. Pulmonary vascular congestion. PG Care Time/CCT Total # of Minutes Spent Total Time Spent with Patient: Total time spent is greater than 50% in coordination of care (as documented) at patient's floor/unit and/or counseling patient: Coding Level of Care Code 29745 Initial Inpt Care Lvl 3 Diagnoses Acute and chronic respiratory failure J96.20 Type 2 diabetes mellitus E11.9 Diastolic dysfunction I51.89 Coronary artery disease I25.10
[2019-12-16 14:23] LABS: Adenovirus PCR Not Detected (NotDetected); Bordetella parapertussis PCR Not Detected (NotDetected); Bordetella pertussis PCR Not Detected (NotDetected); Chlamydia pneumoniae PCR Not Detected (NotDetected); Coronavirus 229E PCR Not Detected (NotDetected); Coronavirus HKU1 PCR Not Detected (NotDetected); Coronavirus NL63 PCR Not Detected (NotDetected); Coronavirus OC43PCR Not Detected (NotDetected); Human Metapneumovirus PCR Not Detected (NotDetected); Influenza A PCR Not Detected (NotDetected); Influenza B PCR Not Detected (NotDetected); Mycoplasma pneumoniae PCR Not Detected (NotDetected); Parainfluenza Virus 1 PCR Not Detected (NotDetected); Parainfluenza Virus 2 PCR Not Detected (NotDetected); Parainfluenza Virus 3 PCR Not Detected (NotDetected); Parainfluenza Virus 4 PCR Not Detected (NotDetected); Respiratory Syncytial VirusPCR Not Detected (NotDetected); Rhinovirus/Enterovirus PCR Not Detected (NotDetected)
[2019-12-16] MEDS ORDERED: SODIUM CHLORIDE 0.9% 1000ML 1,000 ML IV ONE (14:23)
--- NOTE | 2019-12-16 15:04 | Emergency Department Note ---
ED Provider Note NAME: JASON MORILLO AGE: 63 SEX: F : 1955 ARRIVES VIA: Ambulance INFORMANT: Patient, ED PROVIDER(S): Trino Bynum DO CHIEF COMPLAINT: Respiratory distress HPI: Patient is a 63-year-old morbidly obese female with a history of diastolic dysfunction, CAD COPD and diabetes that presents the ER for shortness of breath. Upon presentation she was brought in by EMS on CPAP. She was switched to BiPAP. She chronically wears 6 L nasal cannula. She notes her daughter was sick with influenza 10 days ago and that is when her symptoms started. She had cough runny nose and congestion. She does have some right-sided neck pain. She had some right axilla pain previously but that has now resolved. The neck pain is worse with range of motion of her neck. No other exacerbating or remitting factors. ROS: See above HPI for pertinent positives & negatives. A total of 10 systems re viewed and were otherwise negative. PAST MEDICAL HISTORY:See Below PAST SURGICAL HISTORY:See Below FAMILY HISTORY:See Below SOCIAL HISTORY:See Below HOME MEDICATIONS:See Below ALLERGIES:See Below VITALS:See Below PHYSICAL EXAMINATION: GENERAL: Sitting up in bed, ill-appearing, significant distress, on CPAP EYE EXAM: normal conjunctiva. PERRL and EOM's grossly intact. OROPHARYNX: no exudate, no erythema, lips, buccal mucosa, and tongue normal and mucous membranes are moist NECK: supple, no nuchal rigidity, no adenopathy, non-tender LUNGS: Poor air movement with wheezing bilaterally. Normal chest wall mechanics HEART: Tachycardic, S1 normal and S2 normal ABDOMEN: abdomen soft, non-tender, normo-active bowel sounds, no masses, no rebound or guarding. SKIN: no rashes and no bruising UPPER EXTREMITIES: upper extremities are grossly normal. LOWER EXTREMITIES: No pitting edema. NEURO EXAM: Normal sensorium, cranial nerves II-XII grossly intact, normal speech, no gross weakness of arms, no gross weakness of legs. MEDICAL DECISION MAKING: Patient is a 63-year-old female who presents the ER in severe respiratory distress with a past medical history of CAD, COPD and diastolic heart failure. Symptoms have been worsening over the past 10 days. No recent travel. IV was established although she was extremely difficult stick. Systolic blood pressures were in the 70s initially upon arrival. She was immediately switched to BiPAP. IV was established and she was ordered IV fluids. Difficulty obtaining additional IV sites and consequently central line was placed in the right femoral vein. She was bolused with IV fluids. Blood pressure did respond and trended up after 3 L to the 110. Levophed was ordered but held. Patient remained on BiPAP throughout stay in the ER. Labs show a leukocytosis of 36 ,000. No significant anemia. INR was unremarkable. BMP with a slightly elevated creatinine 1.42. LFTs bilirubin was unremarkable. Magnesium low at 1.5. Troponin was negative. Influenza was negative. Bio fire was negative as well. Patient remained on airborne precautions after discussing with printing table hand as patient has significant comorbidities and is presenting with respiratory complaints and infiltrate and septic with covid-19. Discussed case with the hospitalist for admission secondary to hypoxia on BiPAP and sepsis secondary to pneumonia. Triage Nursing notes reviewed. Prior medical records reviewed Vital Signs: reviewed and remarkable for hypotension and tachycardia along with hypoxia Differential diagnosis: Differential diagnoses includes but is not limited to pneumonia, bronchitis, COPD/Asthma exacerbation, pneumothorax, pulmonary embolism, congestive heart failure, acute coronary syndrome ER treatment provided: See below Diagnostics interpreted by me: ECG: Sinus tach rate of 134 Normal axis No PVCs ST depressions in the inferior anterior and lateral Septal Q waves Cardiac Monitoring: Sinus tach rate of 131 Laboratory studies: As stated above and show below. Imaging studies: Portable AP upright 1 view chest x-ray shows right lower lobe infiltrate which is new from previous studies. No pneumothorax. Consultation(s): Dr. Nathen Lee from ICU ED COURSE: Procedures: PROCEDURE NOTE - Central Line Insertion PRIOR TO PROCEDURE: Consent: Discussion was held with the patient concerning central line. The risks and benefits were explained with possible risks to include bleeding, pain, pneumothorax, hemothorax, pulmonary contusion, pulmonary laceration, and infection. The patient freely consented. The patient was evaluated prior to the procedure. The patient was identified and the procedure verified as central line insertion. A Time Out was held and the following information confirmed. Verify Correct Patient: Yes Verify Correct Site: Yes Availability of Necessary Equipment: Yes PROCEDURE NOTE: Procedure: Central Line Inserting Clinician: Trino Bynum DO. Guide-wire was removed, examined and is intact Complication/Corrective Action: none Estimated Blood Loss: 7 mls I have reviewed and educated the patient and or family regarding the benefits and risks of central line insertion, and I have reviewed the potential complications including infection - yes CENTRAL LINE BUNDLE: Skin Prep: Chlorhexidine/alcohol Barriers Used: Mask: yes Sterile gown: yes Large sterile drape: yes Cap: yes Sterile gloves: yes Insertion Status: new site Indications - include all that apply: Hypotension, sepsis Placement Conditions: Emergent Site: Femoral Side: R Number of lumen(s): 3 Length of catheter inserted into patient: 20 centimeters Anesthesia: local Number of Needle Passes: 2 Radiological confirmation: Yes I performed the procedure. Critical Care: I have personally spent 75 minutes of critical care time in the direct management of this patient. This includes bedside care, interpretation of diagnostic studies, and testing, discussion with consultants, patient, and family members, and other required patient management activities. This 75 minutes is in excess of all separately billable procedures. Impression & Plan Respiratory failure, COPD (chronic obstructive pulmonary disease), Hypoxia, Sepsis, Pneumonia, Acute hypotension Past Med/Surg History Medical History Chronic renal insufficiency (Acute) Chronic respiratory failure Chronic venous insufficiency Coronary artery disease (Acute) Diastolic dysfunction (Acute) Gastro-esophageal reflux (Acute) History of umbilical hernia hernia repair Hypertriglyceridemia Lymphedema (Acute) Obesity hypoventilation syndrome (Acute) Obstructive sleep apnea Osteoarthritis Osteoporosis (Acute) Pulmonary nodules (Acute) Type 2 diabetes mellitus (Acute) Vitamin D deficiency (Acute) Surgical History History of cholecystectomy Hx of umbilical hernia repair Family History Sister Colorectal cancer Breast cancer Denies family history of Ovarian cancer Prostate cancer Myocardial infarction Social History Preferred Language: Luxembourgish Communication Ability: Effective Blood Bank Laboratory Professional Required: No Beliefs That Will Affect Care: None marital status: Current Living Situation: Family Feels Safe at Home: Yes Smoking Status: Unknown if ever smoked Hx Alcohol Use: No Hx Substance Use: No Dental Care, Regularly: No Physical Activity Frequency: Does not Exercise Seatbelt Use: always Results & Data Vital Signs Vital Signs - 24 hr 12/16/19 11:52 12/16/19 11:54 12/16/19 11:55 Temperature 37.2 C Temperature Source Oral Pulse Rate 134 H 128 H Pulse Rate [Left Finger] Respiratory Rate 28 H 30 H Respiratory Effort / Characteristics Spontaneous Respiratory Depth Respiratory Pattern Tachypnea Blood Pressure 83/64 L Blood Pressure [Left Arm] Blood Pressure Mean 70 Blood Pressure Mean [Left Arm] Pulse Oximetry 98 96 97 Oxygen Delivery Method BiPAP Non-rebreather Oxygen Flow Rate 15 15 Fraction of Inspired Oxygen 40 Sepsis Recent Fever Within 48 Hours No Sepsis New/Unexplained Change in Mental Status No Sepsis Action Taken by Nursing No Action Required 12/16/19 11:58 12/16/19 12:11 12/16/19 12:28 Temperature Temperature Source Pulse Rate Pulse Rate [Left Finger] 128 H 129 H 122 H Respiratory Rate 30 H 18 20 Respiratory Effort / Characteristics Spontaneous Short of Breath Respiratory Depth Respiratory Pattern Blood Pressure Blood Pressure [Left Arm] 94/69 L 92/71 L Blood Pressure Mean Blood Pressure Mean [Left Arm] 77 78 Pulse Oximetry 97 98 100 Oxygen Delivery Method BiPAP BiPAP BiPAP Oxygen Flow Rate Fraction of Inspired Oxygen 40 Sepsis Recent Fever Within 48 Hours Sepsis New/Unexplained Change in Mental Status Sepsis Action Taken by Nursing 12/16/19 13:09 12/16/19 13:12 12/16/19 13:32 Temperature Temperature Source Pulse Rate Pulse Rate [Left Finger] 128 H 123 H Respiratory Rate 24 22 Respiratory Effort / Characteristics Respiratory Depth Normal Respiratory Pattern Blood Pressure Blood Pressure [Left Arm] 111/76 107/63 125/75 Blood Pressure Mean Blood Pressure Mean [Left Arm] 87 77 91 Pulse Oximetry 98 100 Oxygen Delivery Method BiPAP BiPAP Oxygen Flow Rate Fraction of Inspired Oxygen Sepsis Recent Fever Within 48 Hours Sepsis New/Unexplained Change in Mental Status Sepsis Action Taken by Nursing 12/16/19 14:00 12/16/19 14:37 Temperature Temperature Source Pulse Rate Pulse Rate [Left Finger] 122 H 114 H Respiratory Rate 22 18 Respiratory Effort / Characteristics Respiratory Depth Respiratory Pattern Blood Pressure Blood Pressure [Left Arm] 109/68 104/69 Blood Pressure Mean Blood Pressure Mean [Left Arm] 81 80 Pulse Oximetry 99 98 Oxygen Delivery Method BiPAP BiPAP Oxygen Flow Rate Fraction of Inspired Oxygen Sepsis Recent Fever Within 48 Hours Sepsis New/Unexplained Change in Mental Status Sepsis Action Taken by Nursing Laboratory Data Result diagrams: 12/16/19 11:50 12/16/19 11:50 Lab Results 12/16/19 12/16/19 12/16/19 Range/Units 11:50 11:50 11:50 WBC 36.10 H* (4.8-10.8) K/uL RBC 4.88 (4.2-5.4) M/uL Hgb 14.0 (12.0-16.0) g/dL Hct 44.2 (37-47) % MCV 90.6 (80-100) fL MCH 28.7 (25-34) pg MCHC 31.7 L (32-36) g/dL RDW Std Deviation 49.0 H (36.4-46.3) fL RDW Coeff of Ana 14.8 H (11.5-14.5) % Plt Count 174 (130-400) K/uL MPV 10.7 H (7.4-10.4) fL Immature Gran % (Auto) 0.8 % Neut % (Auto) 86.0 % Lymph % (Auto) 8.3 % Crosby % (Auto) 4.7 % Eos % (Auto) 0.1 % Baso % (Auto) 0.1 % Immature Gran # (Auto) 0.29 H (0.00-0.02) K/uL Neut # (Auto) 31.10 H (1.4-6.5) K/uL Lymph # (Auto) 2.98 (1.2-3.4) K/uL Crosby # (Auto) 1.69 H (0.11-0.59) K/uL Eos # (Auto) 0.02 (0-0.5) K/uL Baso # (Auto) 0.02 (0-0.2) K/uL PT 11.8 (9.0-12.0) Seconds INR 1.1 (0.9-1.1) APTT 26.2 (21.0-31.0) Seconds PTT Ratio 0.9 Sodium 139 (136-145) mmol/L Potassium 4.6 (3.5-5.1) mmol/L Chloride 102 (98-107) mmol/L Carbon Dioxide 32 (21-32) mmol/L Anion Gap 6.0 (3-11) BUN 20 H (7-18) mg/dl Creatinine 1.42 H (0.6-1.2) mg/dl Est Cr Clr Drug Dosing 55.7 ml/min Est GFR ( Amer) 45.1 Est GFR (Non-Af Amer) 38.9 BUN/Creatinine Ratio 14.4 (10-20) Glucose 187 H (70-99) mg/dl Calcium 9.3 (8.5-10.1) mg/dl Magnesium 1.5 L (1.8-2.4) mg/dl Total Bilirubin 0.7 (0.2-1) mg/dl AST 48 H (15-37) U/L ALT 46 (12-78) U/L Alkaline Phosphatase 112 (45-117) U/L Troponin I < 0.015 (0-0.045) ng/ml Total Protein 7.3 (6.4-8.2) gm/dl Albumin 3.2 L (3.4-5.0) gm/dl Globulin 4.1 H (2.5-4.0) gm/dl Albumin/Globulin Ratio 0.8 L (0.9-2) Adenovirus (PCR) (NotDetected) B. pertussis DNA (PCR) (NotDetected) B.parapertussis DNA PCR (NotDetected) C. pneumoniae DNA (PCR) (NotDetected) Coronavirus OC43 (PCR) (NotDetected) Coronavirus HKU1 (PCR) (NotDetected) Coronavirus 229E (PCR) (NotDetected) Coronavirus NL63 (PCR) (NotDetected) Human Metapneumovir PCR (NotDetected) Influenza Type A (PCR) (Neg) Influenza Type B (PCR) (Neg) M. pneumoniae (PCR) (NotDetected) Parainfluenza 1 (PCR) (NotDetected) Parainfluenza 2 (PCR) (NotDetected) Parainfluenza 3 (PCR) (NotDetected) Parainfluenza 4 (PCR) (NotDetected) RSV (PCR) (NotDetected) Entero/Rhino (PCR) (NotDetected) 12/16/19 12/16/19 Range/Units 11:50 11:50 WBC (4.8-10.8) K/uL RBC (4.2-5.4) M/uL Hgb (12.0-16.0) g/dL Hct (37-47) % MCV (80-100) fL MCH (25-34) pg MCHC (32-36) g/dL RDW Std Deviation (36.4-46.3) fL RDW Coeff of Ana (11.5-14.5) % Plt Count (130-400) K/uL MPV (7.4-10.4) fL Immature Gran % (Auto) % Neut % (Auto) % Lymph % (Auto) % Crosby % (Auto) % Eos % (Auto) % Baso % (Auto) % Immature Gran # (Auto) (0.00-0.02) K/uL Neut # (Auto) (1.4-6.5) K/uL Lymph # (Auto) (1.2-3.4) K/uL Crosby # (Auto) (0.11-0.59) K/uL Eos # (Auto) (0-0.5) K/uL Baso # (Auto) (0-0.2) K/uL PT (9.0-12.0) Seconds INR (0.9-1.1) APTT (21.0-31.0) Seconds PTT Ratio Sodium (136-145) mmol/L Potassium (3.5-5.1) mmol/L Chloride (98-107) mmol/L Carbon Dioxide (21-32) mmol/L Anion Gap (3-11) BUN (7-18) mg/dl Creatinine (0.6-1.2) mg/dl Est Cr Clr Drug Dosing ml/min Est GFR ( Amer) Est GFR (Non-Af Amer) BUN/Creatinine Ratio (10-20) Glucose (70-99) mg/dl Calcium (8.5-10.1) mg/dl Magnesium (1.8-2.4) mg/dl Total Bilirubin (0.2-1) mg/dl AST (15-37) U/L ALT (12-78) U/L Alkaline Phosphatase (45-117) U/L Troponin I (0-0.045) ng/ml Total Protein (6.4-8.2) gm/dl Albumin (3.4-5.0) gm/dl Globulin (2.5-4.0) gm/dl Albumin/Globulin Ratio (0.9-2) Adenovirus (PCR) Not Detected (NotDetected) B. pertussis DNA (PCR) Not Detected (NotDetected) B.parapertussis DNA PCR Not Detected (NotDetected) C. pneumoniae DNA (PCR) Not Detected (NotDetected) Coronavirus OC43 (PCR) Not Detected (NotDetected) Coronavirus HKU1 (PCR) Not Detected (NotDetected) Coronavirus 229E (PCR) Not Detected (NotDetected) Coronavirus NL63 (PCR) Not Detected (NotDetected) Human Metapneumovir PCR Not Detected (NotDetected) Influenza Type A (PCR) Neg for Influ A Not Detected (Neg) Influenza Type B (PCR) Neg for Influ B Not Detected (Neg) M. pneumoniae (PCR) Not Detected (NotDetected) Parainfluenza 1 (PCR) Not Detected (NotDetected) Parainfluenza 2 (PCR) Not Detected (NotDetected) Parainfluenza 3 (PCR) Not Detected (NotDetected) Parainfluenza 4 (PCR) Not Detected (NotDetected) RSV (PCR) Not Detected (NotDetected) Entero/Rhino (PCR) Not Detected (NotDetected) Administered Medications Sodium Chloride (Nss 1000ml) 1,000 mls @ 999 mls/hr IV .Q1H1M ONE Stop: 12/16/19 15:23 Last Admin: 12/16/19 14:38 Dose: 999 mls/hr Documented by: [id number] Discontinued Medications Albuterol (Duoneb) 12 ml INH ONE STA Stop: 12/16/19 11:55 Last Admin: 12/16/19 11:58 Dose: 12 ml Documented by: [id number] Sodium Chloride (Nss 1000ml) 2,000 mls @ 999 mls/hr IV .Q2H1M YAN Stop: 12/16/19 14:00 Last Infusion: 12/16/19 14:03 Dose: 0 mls/hr Documented by: [id number] Admin: 12/16/19 11:58 Dose: 999 mls/hr Documented by: [id number] Levofloxacin/Dextrose (Levaquin/D5w) 750 mg in 150 mls @ 100 mls/hr IV NOW STA Stop: 12/16/19 13:23 Last Infusion: 12/16/19 14:39 Dose: 0 mls/hr Documented by: [id number] Admin: 12/16/19 13:08 Dose: 100 mls/hr Documented by: [id number] Ceftriaxone Sodium (Rocephin) 1,000 mg in 50 mls @ 100 mls/hr IV NOW STA Stop: 12/16/19 13:24 Last Admin: 12/16/19 14:20 Dose: 100 mls/hr Documented by: [id number] Methylprednisolone (Solumedrol) 125 mg IV NOW STA Stop: 12/16/19 11:55 Last Admin: 12/16/19 12:19 Dose: 125 mg Documented by: [id number] Discharge Plan Visit Data Chief Complaint: Shortness of Breath/Dyspnea Stated Complaint: flu symptoms ED Provider: Trino Bynum Discharge Problem: Respiratory failure, COPD (chronic obstructive pulmonary disease), Hypoxia, Sepsis, Pneumonia, Acute hypotension Forms Stand Alone Forms: [facility] Prescriptions Prescriptions: No Action ergocalciferol (vitamin D2) 50,000 unit capsule 50,000 units PO WEEKLY Qty: 12 RF: 3 pantoprazole 40 mg tablet,delayed release (DR/EC) 40 mg PO DAILY Qty: 90 RF: 1 albuterol sulfate [Ventolin HFA] 90 mcg/actuation HFA aerosol inhaler 1 - 2 puffs INH Q6H PRN (Reason: shortness of breath or wheezing) Qty: 18 RF: 5 polyethylene glycol 3350 17 gram/dose powder 17 gm PO DAILY PRN (Reason: constipation) Qty: 255 RF: 2 (DME) BiPap Machine Misc See Rx Instructions .ROUTE .MEDSUPPLY Qty: 1 RF: 0 metformin 500 mg tablet extended release 24 hr 1,000 mg PO DAILY Qty: 180 RF: 1 pravastatin 80 mg tablet 80 mg PO DAILY Qty: 30 RF: 5 budesonide 0.5 mg/2 mL suspension for nebulization 0.5 mg inhalation BID Qty: 120 RF: 5 mupirocin 2 % ointment 1 appln topical BID Qty: 22 RF: 1 triamcinolone acetonide 0.1 % cream 1 applic TOPICAL BID Qty: 80 RF: 1 baclofen 10 mg tablet 10 mg PO TID PRN (Reason: Muscle Spasm) Qty: 90 RF: 1 Bevespi Aerosphere 9-4.8 mcg HFA aerosol inhaler 2 puff INHALATION AMPM Qty: 10.7 RF: 3 Hold Instructions: no samples, insurance coverage - trial stiolto tiotropium-olodaterol [Stiolto Respimat] 2.5-2.5 mcg/actuation mist 1 puff inhalation DAILY RF: 0 betamethasone dipropionate 0.05 % ointment 1 appln topical BID Qty: 1 RF: 0 (DME) Vortex Holding Chamber spacer See Dose Instructions .ROUTE .MEDSUPPLY Qty: 1 RF: 0 (DME) Oxygen Home Liters Per Minute See Dose Instructions .ROUTE .MEDSUPPLY Qty: 1 RF: 0 (DME) Oxygen Home Liters Per Minute See Dose Instructions .ROUTE .MEDSUPPLY Qty: 1 RF: 0 docusate sodium 100 mg tablet 100 mg PO BID PRN (Reason: Constipation) Qty: 60 RF: 0 furosemide 40 mg tablet 40 mg PO DAILY Qty: 90 RF: 0 tramadol 50 mg tablet 50 mg PO Q8H PRN (Reason: pain) Qty: 30 RF: 0 albuterol sulfate 2.5 mg /3 mL (0.083 %) solution for nebulization 2.5 mg inhalation Q4H PRN (Reason: wheezing) Qty: 2 RF: 5 ipratropium bromide 0.02 % solution 2.5 ml INHALATION QID Qty: 62.5 RF: 5 Discharge Problem: Respiratory failure Qualifiers: Chronicity: acute Respiratory failure complication: unspecified whether with hypoxia or hypercapnia Qualified Code(s): J96.00 - Acute respiratory failure, unspecified whether with hypoxia or hypercapnia COPD (chronic obstructive pulmonary disease) Qualifiers: COPD type: unspecified COPD Qualified Code(s): J44.9 - Chronic obstructive pulmonary disease, unspecified Sepsis Qualifiers: Sepsis type: sepsis due to unspecified organism Sepsis acute organ dysfunction status: unspecified Qualified Code(s): A41.9 - Sepsis, unspecified organism Pneumonia Qualifiers: Pneumonia type: due to unspecified organism Laterality: unspecified laterality Lung location: unspecified part of lung Qualified Code(s): J18.9 - Pneumonia, unspecified organism
[2019-12-16 15:14] LABS: Base Excess VBG -0.4 mEq/L; HCO3 VBG 29 mmol/L; PCO2 VBG 69 mmHg (38-50); PO2 VBG 31 mmHg; pH VBG 7.23 (7.36-7.41)
[2019-12-16 15:15] LABS: Oxygen Saturation VBG < 60.0 %
[2019-12-16 17:25] LABS: Appearance Urine Turbid (Clear); Bacteria Urine Automated Negative (Negative); Blood Urine 3+ (Negative); Color Urine Dark Yellow; Epithelial Cell Urine Auto >30 /lpf (0-5); Glucose Urine UA Trace (Negative); Ketones Urine Trace (Negative); Leukocyte Esterase Urine 1+ (Negative); Nitrite Urine Negative (Negative); Protein Urine 2+ (Negative); Specific Gravity Urine 1.025 (1.000-1.030); Urobilinogen Urine Negative (Negative); WBC Urine Automated >30 /hpf (0-5)
[2019-12-16 17:27] LABS: Bilirubin Urine Negative (Negative); Ictotest Urine Negative (Negative)
[2019-12-16 17:40] LABS: RBC Urine Automated >30 /hpf (0-4)
[2019-12-16] MEDS: NOREPINEPHRINE BIT INJ 8 MG in DEXTROSE 5% 500 ML IV SCH (18:37)
[2019-12-16] MEDS ORDERED: CARBOHYDRATES FOR HYPOGLYCEMIA PO PRN (19:38)
[2019-12-16] MEDS ORDERED: GLUCOSE 40% GEL 15 GM TUBE PO PRN (19:38)
[2019-12-16] MEDS ORDERED: DEXTROSE 50% 50 ML SYRINGE IV PRN (19:38)
[2019-12-16] MEDS ORDERED: FAMOTIDINE 20MG/5ML IV PUSH IV SCH (19:38)
[2019-12-16] MEDS ORDERED: methylPREDNISolone 125 MG/2 ML VIAL IV SCH (19:38)
[2019-12-16] MEDS ORDERED: GLUCAGON FOR INJ 1 MG VIAL SQ PRN (19:38)
[2019-12-16] MEDS ORDERED: ICU PROTOCOL FOR HYPERGLYCEMIA PRN (19:38)
[2019-12-16] MEDS ORDERED: GLUCOSE 10 TABS/TUBE PO PRN (19:38)
[2019-12-16] MEDS ORDERED: PHARMACY GLYCEMIC MGMT CONSULT PRN (19:57)
[2019-12-16] MEDS: MAGNESIUM SULFATE / D5W 1 GM/100 ML BAG IV SCH ×2 (20:03→21:16)
--- NOTE | 2019-12-16 20:10 | Critical Care Consultation ---
Date of Consultation December 16, 2019 Assessment & Plan (1) Respiratory failure: Reason Critically Ill: 63-year-old female with COPD on 6 L nasal cannula at baseline, presenting with severe shortness of breath now requiring BiPAP and being treated for pneumonia on COPD exacerbation Neuro - [facility] ICU: Negative Cardiac - Mild hypotension on admission, resolved with fluid resuscitation, now normotensive without use of vasopressors TTE from 07/20 showed EF 60 to 65%, study normal Troponin negative Monitor on telemetry Respiratory - Hypoxic hypercapnic respiratory failurepatient with history of COPD on 6 L nasal cannula at baseline, presents with acute on chronic respiratory failure -AB.2 / -Currently stable on BiPAP, settings 12/, 30% -Chest x-ray showed bilateral parenchymal infiltrates -Continue broad-spectrum antibiotics for pneumonia coverage -Influenza, bio fire negative, Covid 19 pending -Continue IV Solu-Medrol, duo nebs GI - GERD RENAL/LYTES - GERALD on CKDnormal creatinine 1.0 and elevated 1.4 on this admission -May be attributed to hypovolemia, as patient's blood pressure was initially hypotensive but improved with fluid -We will continue to trend creatinine with routine BMPs -Avoid nephrotoxins - Strict I's and O's ENDO - Diabetes type 2holding home dose metformin -Proceed with sliding scale/Lantus -ICU hyperglycemic protocol No history of thyroid disease HEME - H&H stable, monitor routine CBCs ID - Pneumoniabilateral infiltrates on chest x-ray, elevated WBC -Urine culture, blood cultures, sputum culture pending -Lactate and procalcitonin pending -Influenza and bio fire negative, Covid 19 pending, continue airborne precautions -MRSA swab pending -Continue cefepime Levaquin, vancomycin LINES/IV ACCESS - Peripheral IVs DVT PROPHYLAXIS - SCDs, Lovenox I have personally spent 40 minutes of critical care time in the direct management of this patient. This is a life/limb threatening event. This includes time spent evaluating patient, direct bedside care, chart review, placing orders, interpretation of diagnostic studies, discussion with consultants, patient, and family members, as well as other required patient management activities. This time is exclusive of all separately billable procedures, and teaching time and separate from and in addition to any other critical care service time. Thank you for allowing us to participate in the care of this patient. Please refer to my attending physician's documentation for any further recommendations. (2) COPD (chronic obstructive pulmonary disease): (3) Hypoxia: (4) Sepsis: (5) Pneumonia: (6) Type 2 diabetes mellitus: (7) Obstructive sleep apnea: (8) Obesity hypoventilation syndrome: (9) Gastro-esophageal reflux: (10) Coronary artery disease: (11) Chronic venous insufficiency: Supervising Physician Co-Signing Physician Notes Patient is a 63-year-old female with morbid obesity BMI 56 with acute on chronic hypoxic respiratory failure as well as ROZ. Patient admitted under presumptive pneumonia responding to BiPAP therapy. Considerations given to COVID-19, she does not have travel history, no exposure history, minimal bilateral infiltrates, discussed with Dr. Berumen of [facility], will follow clinically. History of Present Illness Attending Physician: Que Sena, History of Present Illness Ms. Landeros is a 63-year-old female with PMH morbid obesity, diastolic CHF, CAD, COPD (6 L nasal cannula at home), diabetes that presented to the emergency department with shortness of breath. Patient states that symptoms of cough and runny nose and congestion started approximately 10 days ago and that her daughter was sick with influenza a as well during that time period. She was placed on BiPAP in the ED and patient was noted to be hypotensive which improved initially with fluid resuscitation. Influenza and bio fire negative, patient now being tested for code with 19. Patient admitted to ICU for acute respiratory distress and isolation precautions, currently remains on BiPAP. Will remain in ICU for further management at this time. On arrival to the ICU patient is alert and oriented and appears comfortable on BiPAP, feels that shortness of breath and air hunger has significantly improved. She is mildly tachypneic with respiratory rate in the low 20s with nonlabored breathing. She denies headache, dizziness, chest pain, palpitations, abdominal pain, nausea or vomiting. Allergies Allergy/AdvReac Type Severity Reaction Status Date / Time codeine AdvReac Mild SHAKING Verified 12/16/19 13:21 oxycodone AdvReac Unknown rash/shakes Verified 12/16/19 13:21 Home Medications Home Medications Medication Instructions Recorded Confirmed Type Oxygen Home #1 ea 03/12/19 10/14/19 History ergocalciferol (vitamin D2) 1,250 50,000 units PO WEEKLY #12 cap 05/29/19 12/16/19 Rx mcg (50,000 unit) capsule pantoprazole 40 mg tablet,delayed 40 mg PO DAILY #90 tab 06/05/19 12/16/19 Rx release betamethasone dipropionate 0.05 % 1 appln TOPICAL BID #1 gm 06/09/19 12/16/19 History topical ointment docusate sodium 100 mg tablet 100 mg PO BID PRN #60 tab 06/09/19 12/16/19 History furosemide 40 mg tablet 40 mg PO DAILY #90 tab 06/09/19 12/16/19 History tramadol 50 mg tablet 50 mg PO Q8H PRN #30 tab 06/09/19 12/16/19 History Oxygen Home #1 ea 06/12/19 10/14/19 History inhalational spacing device #1 ea 06/12/19 10/14/19 History albuterol sulfate 90 mcg/actuation 1 - 2 puffs INH Q6H PRN #18 gm 06/19/19 12/16/19 Rx aerosol inhaler polyethylene glycol 3350 17 17 gm PO DAILY PRN #255 gm 07/22/19 12/16/19 Rx gram/dose oral powder BiPap Machine #1 ea 09/02/19 10/14/19 Rx albuterol sulfate 2.5 mg INHALATION Q4H PRN #2 ml 09/10/19 12/16/19 Rx ipratropium bromide 0.02 % 2.5 ml INHALATION QID #62.5 ml 09/10/19 12/16/19 Rx solution for inhalation metformin 500 mg tablet,extended 1,000 mg PO DAILY #180 tab 09/19/19 12/16/19 Rx release 24 hr pravastatin 80 mg tablet 80 mg PO DAILY #30 tab 10/09/19 12/16/19 Rx glycopyrrolate 9 mcg-formoterol 2 puff INHALATION AMPM #10.7 gm 10/14/19 12/16/19 Rx 4.8 mcg HFA aerosol inhaler budesonide 0.5 mg/2 mL suspension 0.5 mg INHALATION BID #120 ml 10/16/19 12/16/19 Rx for nebulization mupirocin 2 % topical ointment 1 appln TOPICAL BID #22 gm 02/20/20 03/16/20 Rx triamcinolone acetonide 0.1 % 1 applic TOPICAL BID #80 gm 11/21/19 12/16/19 Rx topical cream baclofen 10 mg tablet 10 mg PO TID PRN #90 tab 12/02/19 12/16/19 Rx Patient History Medical History Chronic renal insufficiency (Acute) Chronic respiratory failure Chronic venous insufficiency Coronary artery disease (Acute) Diastolic dysfunction (Acute) Gastro-esophageal reflux (Acute) History of umbilical hernia hernia repair Hypertriglyceridemia Lymphedema (Acute) Obesity hypoventilation syndrome (Acute) Obstructive sleep apnea Osteoarthritis Osteoporosis (Acute) Pulmonary nodules (Acute) Type 2 diabetes mellitus (Acute) Vitamin D deficiency (Acute) Surgical History History of cholecystectomy Hx of umbilical hernia repair Family History Sister Colorectal cancer Breast cancer Denies family history of Ovarian cancer Prostate cancer Myocardial infarction Social History Preferred Language: Gabonese Communication Ability: Effective 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 Other Information That Helps Us Care for You: No Feels Safe at Home: Yes Safety Concerns: Feels Safe At This Time Smoking Status: Former smoker Do You Dip or Chew Tobacco: No ; Smoking End Date: 15 years ago. ; Tobacco Cessation Education Requested by Patient: No Hx Alcohol Use: No Hx Substance Use: No Dental Care, Regularly: No Physical Activity Frequency: Does not Exercise Seatbelt Use: always Review of Systems Review of Systems: All systems reviewed & are unremarkable except as noted in HPI & below Physical Exam Constitutional: + morbidly obese and comfortable Eyes: PERRL, conjunctivae normal, anicteric sclerae ENMT: external ear and nose normal, oropharynx normal Neck: trachea midline, no thyromegaly Respiratory: Bilateral breath sounds clear in upper lobes with mild rhonchi auscultated bilaterally in bases. Symmetrical chest wall movement. Nonlabored breathing. Mild tachypnea Cardiovascular: Sinus tachycardia on monitor, S1-S2 auscultated no murmur, no JVD, no edema Gastrointestinal (Abdomen): Abdomen obese, soft, nontender, normal bowel sounds Musculoskeletal: no cyanosis or clubbing, extremities motor strength 5/5 Skin: No rashes, skin dry and flaky Neurologic: PERRL, EOMI, accommodation nl, no face palsy, no dysarthria Psychiatric: A+Ox3, euthymic affect Results & Data ([facility]) Vital Signs (Past 12 Hours) Vital Signs Temp Pulse Pulse Resp BP BP Pulse Ox 12/16/19 18:35 120 H 32 H 93 12/16/19 18:00 104 H 28 H 110/75 96 12/16/19 17:50 101 H 19 98 12/16/19 17:40 104 H 20 96 12/16/19 17:30 96 H 16 102/63 98 12/16/19 17:20 101 H 18 97 12/16/19 17:18 102 H 23 98 12/16/19 17:10 102 H 21 97 12/16/19 17:00 105 H 22 82/62 L 99 12/16/19 16:50 108 H 24 100 12/16/19 16:40 112 H 28 H 99 12/16/19 16:32 108 H 37 H 98 12/16/19 16:30 109 H 23 107/61 97 12/16/19 16:29 108 H 19 113/69 97 12/16/19 16:20 102 H 20 99 12/16/19 16:00 107 H 27 H 107/61 99 12/16/19 15:30 109 H 26 H 99 12/16/19 15:00 108 H 19 113/69 99 12/16/19 14:37 114 H 18 104/69 98 12/16/19 14:00 122 H 22 109/68 99 12/16/19 13:32 123 H 22 125/75 100 12/16/19 13:12 107/63 12/16/19 13:09 128 H 24 111/76 98 12/16/19 12:28 122 H 20 92/71 L 100 12/16/19 12:11 129 H 18 94/69 L 98 12/16/19 11:58 128 H 30 H 97 12/16/19 11:55 128 H 30 H 97 12/16/19 11:54 96 12/16/19 11:52 37.2 C 134 H 28 H 83/64 L 98 Coding Level of Care Code Critical Care 1st 30-74 mins Diagnoses Respiratory failure J96.00 Chronicity: acute Respiratory failure complication: unspecified whether with hypoxia or hypercapnia COPD (chronic obstructive pulmonary disease) J44.9 COPD type: unspecified COPD Hypoxia R09.02 Sepsis A41.9 Sepsis acute organ dysfunction status: unspecified Sepsis type: sepsis due to unspecified organism Pneumonia J18.9 Laterality: unspecified laterality Lung location: unspecified part of lung Pneumonia type: due to unspecified organism Type 2 diabetes mellitus E11.9 Obstructive sleep apnea G47.33 Obesity hypoventilation syndrome E66.2 Gastro-esophageal reflux K21.9 Coronary artery disease I25.10 Chronic venous insufficiency I87.2 Time Spent (min) 40 Comment I have personally spent 40 minutes of critical care time in the direct managem ent of this patient. This is a life/limb threatening event. This includes time spent evaluating patient, direct bedside care, chart review, placing orders, interpretation of diagnostic studies, discussion with consultants, patient, and/or family members regarding treatment decisions, as well as other required patient management activities. This time is exclusive of all separately billable procedures, and teaching time and separate from and in addition to any other critical care service time. (1) Respiratory failure Chronicity: acute Respiratory failure complication: unspecified whether with hypoxia or hypercapnia Qualified Code(s): J96.00 - Acute respiratory failure, unspecified whether with hypoxia or hypercapnia (2) Sepsis Sepsis acute organ dysfunction status: unspecified Sepsis type: sepsis due to unspecified organism Qualified Code(s): A41.9 - Sepsis, unspecified organism (3) COPD (chronic obstructive pulmonary disease) COPD type: unspecified COPD Qualified Code(s): J44.9 - Chronic obstructive pulmonary disease, unspecified (4) Pneumonia Laterality: unspecified laterality Lung location: unspecified part of lung Pneumonia type: due to unspecified organism Qualified Code(s): J18.9 - Pneumonia, unspecified organism
[2019-12-16] MEDS: ALBUT/IPRATROP 3MG/0.5MG NEB 3 ML VIAL NEB SCH (20:48)
[2019-12-16] MEDS ORDERED: INSULIN ASPART 100 UNITS/ML 3 ML PEN SC SCH (21:00)
[2019-12-16] MEDS: CEFEPIME 2,000 MG in SYRINGE 7.5 ML IV SCH (21:16)
[2019-12-16] MEDS: methylPREDNISolone 60 MG in SYRINGE 0 ML IV SCH (21:16)
[2019-12-16] MEDS: ENOXAPARIN INJ 40 MG/0.4 ML SYR SQ SCH (21:17)
[2019-12-16] MEDS: SODIUM CHLORIDE 0.9% 1000ML 1,000 ML IV SCH (21:17)
[2019-12-16] MEDS: FAMOTIDINE 20 MG in SYRINGE 3 ML IV SCH (21:19)
[2019-12-16 21:54] LABS: BUN Creatinine Ratio 18.1 (10-20); Calcium 8.3 mg/dl (8.5-10.1); Creatinine Clr Calc Pharmacy 50.1 ml/min; Est GFR (African American) 42.9; Magnesium 1.7 mg/dl (1.8-2.4); Phosphorus 3.1 mg/dl (2.5-4.9); Potassium 4.9 mmol/L (3.5-5.1)
[2019-12-16] MEDS ORDERED: VANCOMYCIN CONSULT ACTIVE PRN ×2 (21:56→22:13)
[2019-12-16] MEDS ORDERED: VANCOMYCIN INT VIT SCH (22:00)
[2019-12-16 22:14] LABS: Hematocrit (blood only) 38.1 % (37-47); Hemoglobin 11.9 g/dL (12.0-16.0); Mean Corpuscular Hemoglobin 28.9 pg (25-34); Mean Corpuscular Hgb Conc 31.2 g/dL (32-36); Mean Corpuscular Volume 92.5 fL (80-100); Mean Platelet Volume 10.8 fL (7.4-10.4); Platelet Count 130 K/uL (130-400); RDW Coefficient of Variation 14.9 % (11.5-14.5); RDW Standard Deviation 50.3 fL (36.4-46.3); Red Blood Count 4.12 M/uL (4.2-5.4)
[2019-12-16] MEDS ORDERED: VANCOMYCIN HCL 1,000 MG in SODIUM CHLORIDE 0.9% 250 ML IV SCH (22:15)
[2019-12-16] MEDS ORDERED: INSULIN GLARGINE SOLOSTAR 100 UNITS/ML 3 ML PEN SC SCH (22:15)
[2019-12-16] MEDS ORDERED: VANCOMYCIN HCL 2,750 MG in SODIUM CHLORIDE 0.9% 500 ML IV SCH (22:30)
[2019-12-16 22:44] LABS: Basophils # (auto) 0.01 K/uL (0-0.2); Immature Granulocytes # (auto) 0.51 K/uL (0.00-0.02); Immature Granulocytes % (auto) 1.6 %; Lymphocytes # (auto) 0.78 K/uL (1.2-3.4); Lymphocytes % (auto) 2.4 %; Monocytes # (auto) 0.56 K/uL (0.11-0.59); Monocytes % (auto) 1.7 %; Neutrophils # (auto) 31.04 K/uL (1.4-6.5); Neutrophils % (auto) 94.3 %
[2019-12-17] MEDS: INSULIN ASPART 100 UNITS/ML 3 ML PEN SC SCH ×6 (00:26→21:11)
[2019-12-17] MEDS ORDERED: INSULIN ASPART 100 UNITS/ML 3 ML PEN SC SCH (04:00)
[2019-12-17] MEDS: SODIUM CHLORIDE 0.9% 1000ML 1,000 ML IV SCH ×2 (04:30→10:23)
[2019-12-17] MEDS: methylPREDNISolone 60 MG in SYRINGE 0 ML IV SCH ×2 (04:34→21:12)
[2019-12-17 04:42] LABS: Hematocrit (blood only) 36.6 % (37-47); Hemoglobin 11.3 g/dL (12.0-16.0); Mean Corpuscular Hgb Conc 30.9 g/dL (32-36); Mean Corpuscular Volume 90.8 fL (80-100); Mean Platelet Volume 10.3 fL (7.4-10.4); Platelet Count 126 K/uL (130-400); Red Blood Count 4.03 M/uL (4.2-5.4); White Blood Count 26.91 K/uL (4.8-10.8)
[2019-12-17 04:59] LABS: BUN Creatinine Ratio 23.2 (10-20); Calcium 8.2 mg/dl (8.5-10.1); Creatinine Clr Calc Pharmacy 64.4 ml/min; Est GFR (African American) 58.2; Est GFR (Non-African American) 50.2; Magnesium 2.3 mg/dl (1.8-2.4); Potassium 4.6 mmol/L (3.5-5.1)
[2019-12-17 05:02] LABS: Basophils # (auto) 0.02 K/uL (0-0.2); Basophils % (auto) 0.1 %; Immature Granulocytes # (auto) 0.22 K/uL (0.00-0.02); Immature Granulocytes % (auto) 0.8 %; Lymphocytes # (auto) 0.89 K/uL (1.2-3.4); Lymphocytes % (auto) 3.3 %; Monocytes # (auto) 0.45 K/uL (0.11-0.59); Monocytes % (auto) 1.7 %; Neutrophils # (auto) 25.33 K/uL (1.4-6.5); Neutrophils % (auto) 94.1 %
--- NOTE | 2019-12-17 06:09 | Electrocardiogram Report ---
Test Reason : Blood Pressure : / mmHG Vent. Rate : 134 BPM Atrial Rate : 134 BPM P-R Int : 140 ms QRS Dur : 090 ms QT Int : 284 ms P-R-T Axes : 065 025 076 degrees QTc Int : 424 ms Sinus tachycardia Right atrial enlargement RSR' or QR pattern in V1 suggests right ventricular conduction delay Septal infarct (cited on or before 24-MAR-2016) Nonspecific ST abnormality Abnormal ECG When compared with ECG of 30-JUL-2019 23:17, Premature ventricular complexes are no longer Present Confirmed by Skinny Tierney ([id number]) on 12/17/2019 6:09:42 AM Referred By: REFERRED SELF Confirmed By:Skinny Tierney
[2019-12-17 06:14] LABS: Estimated Average Glucose 126 mg/dl
--- NOTE | 2019-12-17 06:32 | Critical Care Progress Note ---
Date of Service December 17, 2019 Assessment & Plan (1) Respiratory failure: Reason Critically Ill: 63-year-old female with COPD on 6 L nasal cannula at baseline, presenting with severe shortness of breath; being treated for pneumonia on COPD exacerbation Neuro: - CAM ICU: Negative Cardiac: - Mild hypotension on admission, resolved with fluid resuscitation - now normotensive without use of vasopressors - Monitor on telemetry Respiratory: - Hypoxic hypercapnic respiratory failurepatient with history of COPD on 6 L nasal cannula at baseline, presents with acute on chronic respiratory failure - BiPAP QHS & PRN - Chest x-ray showed bilateral parenchymal infiltrates - Continue teflaro, and Levaquin - Influenza, bio fire negative, Covid 19 pending - Continue IV Solu-Medrol, duo nebs GI: - GERD Renal/Lytes: - GERALD on CKD: normal creatinine 1.0 and elevated 1.4 on this admission - May be attributed to hypovolemia, as patient's blood pressure was initially hypotensive but improved with fluid - We will continue to trend creatinine with routine BMPs - Avoid nephrotoxins : - continue to monitor I's and O's ENDO: - T2DM:holding home dose metformin - Proceed with sliding scale/Lantus - will not due ICU hyperglycemic protocol - No history of thyroid disease HEME: - H&H stable - continue to monitor CBCs ID: - Pneumonia - bilateral infiltrates on chest x-ray, elevated WBC - Urine culture, blood cultures, sputum culture pending - Lactate 1.5; procalcitonin 7.02 - Influenza and bio fire negative; continue airborne precautions - MRSA swab negative - Started on Teflaro, and Levaquin Lines/IV Access: - Peripheral IVs DVT Prophylaxis: - SCDs, Lovenox Admission and Anticipated Discharge Date Admission Date: December 16, 2019 Supervising Physician Co-Signing Physician Notes Dr. Angelo was resident physician during care of patient. I separately evaluated patient for jane portions of the history and the exam. I was present during the critical portion of medical decision making, and I discussed the case with the resident. I generally agree with the findings and plan. Patient has improved, but still requiring noninvasive mechanical ventilation for acute on chronic hypoxic respiratory failure. At this point we will discontinue additional IV fluids over concerns over acute cor pulmonale versus CHF. Lactate has resolved,, continue broad-spectrum antibiotics at this time, continuing airborne precautions out of concern for COVID-19. We are discussing with administration and additional stakeholders process to downgrade versus empiric testing of patient's with clinical findings consistent with pathology and no known COVID-19 exposures and no travel history. This patient was questionably meeting isolation criteria based on severity of disease alone, again she does not have a known COVID-19 exposure nor suggestive travel history. Patient remains critically ill requiring noninvasive mechanical ventilation therapy for oxygenation and ventilation Subjective No acute events overnight, patient continues to have improvement in her overall function, no continued concerns. Improved shortness of breath throughout the day. Review of Systems Review of Systems: All systems reviewed & are unremarkable except as noted in Subjective Physical Exam Physical Exam: Physical exam is limited by acuity of disease and global pandemic/infectious disease concerns in limiting PPE overuse. Results & Data ([facility]) Vital Signs (Past 12 Hours) Vital Signs Pulse Pulse Resp Pulse Ox 12/17/19 03:33 81 18 98 12/16/19 23:02 101 H 24 98 12/16/19 20:48 98 H 98 H 28 H 98 12/16/19 18:35 120 H 32 H 93 Laboratory Results 12/17/19 12/17/19 12/17/19 Range/Units 16:38 11:30 11:14 WBC (4.8-10.8) K/uL RBC (4.2-5.4) M/uL Hgb (12.0-16.0) g/dL Hct (37-47) % MCV (80-100) fL MCH (25-34) pg MCHC (32-36) g/dL RDW Std Deviation (36.4-46.3) fL RDW Coeff of Ana (11.5-14.5) % Plt Count (130-400) K/uL MPV (7.4-10.4) fL Immature Gran % (Auto) % Neut % (Auto) % Lymph % (Auto) % [place] % (Auto) % Eos % (Auto) % Baso % (Auto) % Immature Gran # (Auto) (0.00-0.02) K/uL Neut # (Auto) (1.4-6.5) K/uL Lymph # (Auto) (1.2-3.4) K/uL [place] # (Auto) (0.11-0.59) K/uL Eos # (Auto) (0-0.5) K/uL Baso # (Auto) (0-0.2) K/uL Sodium (136-145) mmol/L Potassium (3.5-5.1) mmol/L Chloride (98-107) mmol/L Carbon Dioxide (21-32) mmol/L Anion Gap (3-11) BUN (7-18) mg/dl Creatinine (0.6-1.2) mg/dl Est Cr Clr Drug Dosing ml/min Est GFR ( Amer) Est GFR (Non-Af Amer) BUN/Creatinine Ratio (10-20) Glucose (70-99) mg/dl POC Glucose 136 H 197 H (70-99) mg/dl Estimat Average Glucose mg/dl Hemoglobin A1c (4.5-5.6) % Lactate (0.4-2.0) mmol/L Calcium (8.5-10.1) mg/dl Phosphorus (2.5-4.9) mg/dl Magnesium (1.8-2.4) mg/dl Procalcitonin (0-0.5) ng/ml Nasal Screen MRSA (PCR) Negative (Negative) Hepatitis C Ab Screen (Neg) 12/17/19 12/17/19 12/17/19 Range/Units 06:31 04:32 04:32 WBC (4.8-10.8) K/uL RBC (4.2-5.4) M/uL Hgb (12.0-16.0) g/dL Hct (37-47) % MCV (80-100) fL MCH (25-34) pg MCHC (32-36) g/dL RDW Std Deviation (36.4-46.3) fL RDW Coeff of Ana (11.5-14.5) % Plt Count (130-400) K/uL MPV (7.4-10.4) fL Immature Gran % (Auto) % Neut % (Auto) % Lymph % (Auto) % [place] % (Auto) % Eos % (Auto) % Baso % (Auto) % Immature Gran # (Auto) (0.00-0.02) K/uL Neut # (Auto) (1.4-6.5) K/uL Lymph # (Auto) (1.2-3.4) K/uL [place] # (Auto) (0.11-0.59) K/uL Eos # (Auto) (0-0.5) K/uL Baso # (Auto) (0-0.2) K/uL Sodium 141 (136-145) mmol/L Potassium 4.6 (3.5-5.1) mmol/L Chloride 108 H (98-107) mmol/L Carbon Dioxide 29 (21-32) mmol/L Anion Gap 4.0 (3-11) BUN 27 H (7-18) mg/dl Creatinine 1.15 D (0.6-1.2) mg/dl Est Cr Clr Drug Dosing 64.4 ml/min Est GFR ( Amer) 58.2 Est GFR (Non-Af Amer) 50.2 BUN/Creatinine Ratio 23.2 H (10-20) Glucose 206 H (70-99) mg/dl POC Glucose 186 H (70-99) mg/dl Estimat Average Glucose mg/dl Hemoglobin A1c (4.5-5.6) % Lactate 1.5 (0.4-2.0) mmol/L Calcium 8.2 L (8.5-10.1) mg/dl Phosphorus (2.5-4.9) mg/dl Magnesium 2.3 (1.8-2.4) mg/dl Procalcitonin (0-0.5) ng/ml Nasal Screen MRSA (PCR) (Negative) Hepatitis C Ab Screen (Neg) 12/17/19 12/17/19 12/17/19 Range/Units 04:32 04:32 04:29 WBC 26.91 H (4.8-10.8) K/uL RBC 4.03 L (4.2-5.4) M/uL Hgb 11.3 L (12.0-16.0) g/dL Hct 36.6 L (37-47) % MCV 90.8 (80-100) fL MCH 28.0 (25-34) pg MCHC 30.9 L (32-36) g/dL RDW Std Deviation 50.0 H (36.4-46.3) fL RDW Coeff of Ana 15.0 H (11.5-14.5) % Plt Count 126 L (130-400) K/uL MPV 10.3 (7.4-10.4) fL Immature Gran % (Auto) 0.8 % Neut % (Auto) 94.1 % Lymph % (Auto) 3.3 % [place] % (Auto) 1.7 % Eos % (Auto) 0.0 % Baso % (Auto) 0.1 % Immature Gran # (Auto) 0.22 H (0.00-0.02) K/uL Neut # (Auto) 25.33 H (1.4-6.5) K/uL Lymph # (Auto) 0.89 L (1.2-3.4) K/uL [place] # (Auto) 0.45 (0.11-0.59) K/uL Eos # (Auto) 0.00 (0-0.5) K/uL Baso # (Auto) 0.02 (0-0.2) K/uL Sodium (136-145) mmol/L Potassium (3.5-5.1) mmol/L Chloride (98-107) mmol/L Carbon Dioxide (21-32) mmol/L Anion Gap (3-11) BUN (7-18) mg/dl Creatinine (0.6-1.2) mg/dl Est Cr Clr Drug Dosing ml/min Est GFR ( Amer) Est GFR (Non-Af Amer) BUN/Creatinine Ratio (10-20) Glucose (70-99) mg/dl POC Glucose 187 H (70-99) mg/dl Estimat Average Glucose 126 mg/dl Hemoglobin A1c 6.0 H (4.5-5.6) % Lactate (0.4-2.0) mmol/L Calcium (8.5-10.1) mg/dl Phosphorus (2.5-4.9) mg/dl Magnesium (1.8-2.4) mg/dl Procalcitonin (0-0.5) ng/ml Nasal Screen MRSA (PCR) (Negative) Hepatitis C Ab Screen (Neg) 12/16/19 12/16/19 12/16/19 Range/Units 21:20 21:10 21:10 WBC (4.8-10.8) K/uL RBC (4.2-5.4) M/uL Hgb (12.0-16.0) g/dL Hct (37-47) % MCV (80-100) fL MCH (25-34) pg MCHC (32-36) g/dL RDW Std Deviation (36.4-46.3) fL RDW Coeff of Ana (11.5-14.5) % Plt Count (130-400) K/uL MPV (7.4-10.4) fL Immature Gran % (Auto) % Neut % (Auto) % Lymph % (Auto) % [place] % (Auto) % Eos % (Auto) % Baso % (Auto) % Immature Gran # (Auto) (0.00-0.02) K/uL Neut # (Auto) (1.4-6.5) K/uL Lymph # (Auto) (1.2-3.4) K/uL [place] # (Auto) (0.11-0.59) K/uL Eos # (Auto) (0-0.5) K/uL Baso # (Auto) (0-0.2) K/uL Sodium (136-145) mmol/L Potassium (3.5-5.1) mmol/L Chloride (98-107) mmol/L Carbon Dioxide (21-32) mmol/L Anion Gap (3-11) BUN (7-18) mg/dl Creatinine (0.6-1.2) mg/dl Est Cr Clr Drug Dosing ml/min Est GFR ( Amer) Est GFR (Non-Af Amer) BUN/Creatinine Ratio (10-20) Glucose (70-99) mg/dl POC Glucose (70-99) mg/dl Estimat Average Glucose mg/dl Hemoglobin A1c (4.5-5.6) % Lactate 2.2 H* (0.4-2.0) mmol/L Calcium (8.5-10.1) mg/dl Phosphorus (2.5-4.9) mg/dl Magnesium (1.8-2.4) mg/dl Procalcitonin 7.02 H (0-0.5) ng/ml Nasal Screen MRSA (PCR) Uninterpretable (Negative) Hepatitis C Ab Screen (Neg) 12/16/19 12/16/19 12/16/19 Range/Units 21:10 21:10 11:50 WBC 32.90 H* (4.8-10.8) K/uL RBC 4.12 L (4.2-5.4) M/uL Hgb 11.9 L (12.0-16.0) g/dL Hct 38.1 (37-47) % MCV 92.5 (80-100) fL MCH 28.9 (25-34) pg MCHC 31.2 L (32-36) g/dL RDW Std Deviation 50.3 H (36.4-46.3) fL RDW Coeff of Ana 14.9 H (11.5-14.5) % Plt Count 130 (130-400) K/uL MPV 10.8 H (7.4-10.4) fL Immature Gran % (Auto) 1.6 % Neut % (Auto) 94.3 % Lymph % (Auto) 2.4 % [place] % (Auto) 1.7 % Eos % (Auto) 0.0 % Baso % (Auto) 0.0 % Immature Gran # (Auto) 0.51 H (0.00-0.02) K/uL Neut # (Auto) 31.04 H (1.4-6.5) K/uL Lymph # (Auto) 0.78 L (1.2-3.4) K/uL [place] # (Auto) 0.56 (0.11-0.59) K/uL Eos # (Auto) 0.00 (0-0.5) K/uL Baso # (Auto) 0.01 (0-0.2) K/uL Sodium 140 (136-145) mmol/L Potassium 4.9 (3.5-5.1) mmol/L Chloride 107 (98-107) mmol/L Carbon Dioxide 29 (21-32) mmol/L Anion Gap 5.0 (3-11) BUN 27 H (7-18) mg/dl Creatinine 1.48 H (0.6-1.2) mg/dl Est Cr Clr Drug Dosing 50.1 ml/min Est GFR ( Amer) 42.9 Est GFR (Non-Af Amer) 37.0 BUN/Creatinine Ratio 18.1 (10-20) Glucose 249 H (70-99) mg/dl POC Glucose (70-99) mg/dl Estimat Average Glucose mg/dl Hemoglobin A1c (4.5-5.6) % Lactate (0.4-2.0) mmol/L Calcium 8.3 L (8.5-10.1) mg/dl Phosphorus 3.1 (2.5-4.9) mg/dl Magnesium 1.7 L (1.8-2.4) mg/dl Procalcitonin (0-0.5) ng/ml Nasal Screen MRSA (PCR) (Negative) Hepatitis C Ab Screen Neg (Neg) Medications Administered Current Inpatient Medications Albuterol (Duoneb) 3 ml NEB QIDR YAN Stop: 01/15/20 19:37 Last Admin: 12/17/19 18:20 Dose: Not Given Documented by: Albuterol (Ventolin 0.5% 2.5mg/0.5ml) 2.5 mg NEB Q4H PRN PRN Reason: wheeze Stop: 01/15/20 19:37 Dextrose (Dextrose 50%) 25 - 50 ml IV UD PRN; Protocol PRN Reason: Hypoglycemia Protocol Stop: 01/15/20 19:37 Enoxaparin Sodium (Lovenox) 40 mg SQ Q24H YAN Stop: 01/15/20 20:59 Last Admin: 12/16/19 21:17 Dose: 40 mg Documented by: Furosemide (Lasix) 40 mg PO QAM YAN Stop: 01/17/20 08:59 Glucagon (Glucagen) 1 mg SQ UD PRN; Protocol PRN Reason: Hypoglycemia Protocol Stop: 01/15/20 19:37 Glucose (Dex4 Glucose) 4 - 8 tabs PO UD PRN; Protocol PRN Reason: Hypoglycemia Protocol Stop: 01/15/20 19:37 Glucose (Glucose 40%) 15 - 30 gm PO UD PRN; Protocol PRN Reason: Hypoglycemia Protocol Stop: 01/15/20 19:37 Famotidine 20 mg/ Syringe 5 mls @ 2.5 mls/min IV Q12H YAN Stop: 01/15/20 20:29 Last Admin: 12/17/19 07:46 Dose: 2.5 mls/min Documented by: Methylprednisolone 60 mg/ (Syringe) 0.96 mls @ 1.5 mls/min IV BID YAN Stop: 01/16/20 20:59 Ceftaroline Fosamil 600 mg/ (Sodium Chloride) 270 mls @ 270 mls/hr IV Q8H YAN Stop: 12/24/19 11:59 Last Infusion: 12/17/19 12:43 Dose: Infused Documented by: Levofloxacin/Dextrose (Levaquin/D5w) 750 mg in 150 mls @ 100 mls/hr IV Q24H YAN Stop: 12/24/19 13:59 Last Infusion: 12/17/19 17:21 Dose: Infused Documented by: Insulin Aspart (Novolog Flexpen) 0 units SC ACHS YAN; Protocol Stop: 01/16/20 11:44 Last Admin: 12/17/19 16:50 Dose: 11 units Documented by: Insulin Glargine (Lantus Solostar Pen) 0 units SC HS ONE; Protocol Stop: 12/17/19 21:01 Miscellaneous (Carbohydrates For Hypoglycemia) 15 - 30 gm PO UD PRN PRN Reason: Hypoglycemia Protocol Stop: 01/15/20 19:37 Miscellaneous Information (Consult Glycemic Management Pharmacy) 1 ea N/A UD PRN; Protocol PRN Reason: Consult Stop: 01/15/20 19:56 Critical Care Time Critical Care Time: Yes Total Critical Care Time: 35 I have personally spent 35 minutes of critical care time in the direct management of this patient. This is a life/limb threatening event. This includes time spent evaluating patient, direct bedside care, chart review, placing orders, interpretation of diagnostic studies, discussion with consultants, patient, and/or family members regarding treatment decisions, as well as other required patient management activities. This time is exclusive of all separately billable procedures, and teaching time and separate from and in addition to any other critical care service time. Resident Activity Tracking Resident Involvement: Resident Care Provided Care Provided: Adult Hospital Medicine (1) Respiratory failure Chronicity: acute Respiratory failure complication: unspecified whether with hypoxia or hypercapnia Qualified Code(s): J96.00 - Acute respiratory failure, unspecified whether with hypoxia or hypercapnia
[2019-12-17] MEDS: CEFEPIME 2,000 MG in SYRINGE 7.5 ML IV SCH (07:45)
[2019-12-17] MEDS: FAMOTIDINE 20 MG in SYRINGE 3 ML IV SCH ×2 (07:46→21:12)
[2019-12-17] MEDS: ALBUT/IPRATROP 3MG/0.5MG NEB 3 ML VIAL NEB SCH ×4 (08:07→18:50)
[2019-12-17] MEDS ORDERED: INSULIN GLARGINE SOLOSTAR 100 UNITS/ML 3 ML PEN SC ONE ×3 (09:00→21:00)
[2019-12-17] MEDS: NOREPINEPHRINE BIT INJ 8 MG in DEXTROSE 5% 500 ML IV SCH (09:11)
[2019-12-17] MEDS ORDERED: FUROSEMIDE 40 MG TAB PO ONE (10:15)
[2019-12-17] MEDS: CEFTAROLINE FOSAMIL ACETATE 600 MG in SODIUM CHLORIDE 0.9% 250 ML IV SCH ×2 (11:38→21:12)
--- NOTE | 2019-12-17 13:25 | Pharmacy Report ---
Pharmacy Glycemic Short Note 2 - Date of Service December 17, 2019 - Glycemic Short BSG Results (Last 24 hours): 12/16/19 12/17/19 12/17/19 21:10 04:29 04:32 Glucose 249 H 206 H POC Glucose 187 H 12/17/19 12/17/19 06:31 11:14 Glucose POC Glucose 186 H 197 H OUTPATIENT ANTIDIABETIC REGIMEN: * metformin 500mg ER BID * A1C: 6% 12/17/19 ASSESSMENT: * Patient presented yesterday with acute respiratory failure now experiencing hyperglycemia likely exacerbated by high dose steroids and stress * She received 25 units of lantus last night. BSGs have improved today. * Patient was ordered a diet at lunch today which will likely cause an increase in postprandial BSGs as steroids continue. Steroids were decreased from solumedrol 60 q8 to 60 q12. * Will use an adjusted weight based stress of 2-3 to determine insulin regimen for high dose steroids and critical illness PLAN FOR INPATIENT GLYCEMIC CONTROL: * Hold outpatient oral diabetes medications * Basal insulin * Lantus 25 units SQ this morning * Lantus scale this evenin,25, or 30 units based on BSG (see MAR for details) * Bolus insulin * NovoLog per scale ACHS or Q6hrs while NPO * Goal Range: Low 120 mg/dL - High 160 mg/dL * Correction Factor: 20 mg/dL/unit * Nutritional / Prandial insulin per carb ratio of 1 unit per 6 grams CHO consumed
[2019-12-17] MEDS: LEVOFLOXACIN/D5W 750 MG/150 ML BAG IV SCH (15:22)
[2019-12-17] MEDS ORDERED: CEFEPIME 2,000 MG in SYRINGE 7.5 ML IV SCH (16:00)
--- NOTE | 2019-12-17 19:09 | Hospitalist Progress Note ---
Date of Service December 17, 2019 Assessment & Plan (1) Acute and chronic respiratory failure: Patient with acute on chronic respiratory failure, cause is COPD exacerbation, likely pneumonia continue Solu Medrol, duonebs, breathing better today continue antibiotics for pneumonia, expanded to Ceftaroline, Levaquin today WBC coming down influenza negative, Biofire negative, COVID 19 sent appreciate management per content assistant (2) Type 2 diabetes mellitus: some hyperglycemia with steroids but nothing persistently higher than 200 diabetic diet continue Novolog SS monitor for any hypoglycemia (3) Diastolic dysfunction: Patient does not have any evidence of acute CHF at this time. resume Lasix 40mg PO daily today as she is hypertensive stop fluids (4) Coronary artery disease: continue home medications, no evidence of ACS (5) COPD (chronic obstructive pulmonary disease): as above (6) Pneumonia: as above Admission and Anticipated Discharge Date Admission Date: December 16, 2019 Subjective patient breathing better, titrated off of BiPAP d/w Dr. Lee, if no fever in 24 hours (tomorrow morning) then plan to downgrade eating okay reviewed labs, WBC down to 26k, Hb 11, Cr is 1.1, electrolytes stable blood cultures negative biofire and flu negative Review of Systems Review of Systems: All systems reviewed & are unremarkable except as noted in HPI & below Constitutional: + fatigue and + weakness; no fever, no chills and no sweats Respiratory: + cough and + dyspnea Physical Exam Constitutional: WD/WN, vitals as above + ill appearing and + overweight; no acute distress Eyes: PERRL, conjunctivae normal, anicteric sclerae ENMT: external ear and nose normal, oropharynx normal Neck: trachea midline, no thyromegaly Respiratory: + labored breathing Auscultation: + diminished lung sounds and + wheezes; no rales and no rhonchi Cardiovascular: Rate/Rhythm: regular rhythm and + tachycardic Heart Sounds: normal S1 and normal S2; no murmur Extremities: normal capillary refill; no edema Gastrointestinal (Abdomen): normal bowel sounds, soft, nontender, no hepatosplenomegaly Musculoskeletal: no cyanosis or clubbing, extremities motor strength 5/5 Skin: no rashes, warm and dry Neurologic: patellar DTR's 2+ bilat, sensation intact and PERRL, EOMI, accommodation nl, no face palsy, no dysarthria Psychiatric: A+Ox3, euthymic affect Lymphatic: no cervical or axillary lymphadenopathy Results & Data ([facility]) Vital Signs (Past 12 Hours) Vital Signs Temp Pulse Pulse Resp BP Pulse Ox 12/17/19 18:10 100 H 21 178/68 H 97 12/17/19 17:10 101 H 22 176/102 H 97 12/17/19 16:10 36.8 C 100 H 16 169/117 H 98 12/17/19 15:10 95 H 38 H 148/97 H 99 12/17/19 14:10 106 H 33 H 163/99 H 96 12/17/19 13:10 121 H 22 151/79 H 97 12/17/19 13:03 102 H 29 H 141/85 H 97 12/17/19 12:00 103 H 23 98 12/17/19 11:11 76 17 135/60 100 12/17/19 10:10 36.3 C L 85 19 116/79 98 12/17/19 09:10 84 18 135/72 100 12/17/19 08:10 92 H 19 138/72 98 12/17/19 08:05 90 90 22 87 L 12/17/19 07:09 94 H 19 142/76 H 93 Laboratory Results Laboratory Results - last 24 hr 12/16/19 12/16/19 12/16/19 21:10 21:10 21:10 WBC 32.90 H* RBC 4.12 L Hgb 11.9 L Hct 38.1 MCV 92.5 MCH 28.9 MCHC 31.2 L RDW Std Deviation 50.3 H RDW Coeff of Ana 14.9 H Plt Count 130 MPV 10.8 H Immature Gran % (Auto) 1.6 Neut % (Auto) 94.3 Lymph % (Auto) 2.4 [place] % (Auto) 1.7 Eos % (Auto) 0.0 Baso % (Auto) 0.0 Immature Gran # (Auto) 0.51 H Neut # (Auto) 31.04 H Lymph # (Auto) 0.78 L [place] # (Auto) 0.56 Eos # (Auto) 0.00 Baso # (Auto) 0.01 Sodium 140 Potassium 4.9 Chloride 107 Carbon Dioxide 29 Anion Gap 5.0 BUN 27 H Creatinine 1.48 H Est Cr Clr Drug Dosing 50.1 Est GFR ( Amer) 42.9 Est GFR (Non-Af Amer) 37.0 BUN/Creatinine Ratio 18.1 Glucose 249 H POC Glucose Estimat Average Glucose Hemoglobin A1c Lactate 2.2 H* Calcium 8.3 L Phosphorus 3.1 Magnesium 1.7 L Procalcitonin Nasal Screen MRSA (PCR) 12/16/19 12/16/19 12/17/19 21:10 21:20 04:29 WBC RBC Hgb Hct MCV MCH MCHC RDW Std Deviation RDW Coeff of Ana Plt Count MPV Immature Gran % (Auto) Neut % (Auto) Lymph % (Auto) [place] % (Auto) Eos % (Auto) Baso % (Auto) Immature Gran # (Auto) Neut # (Auto) Lymph # (Auto) [place] # (Auto) Eos # (Auto) Baso # (Auto) Sodium Potassium Chloride Carbon Dioxide Anion Gap BUN Creatinine Est Cr Clr Drug Dosing Est GFR ( Amer) Est GFR (Non-Af Amer) BUN/Creatinine Ratio Glucose POC Glucose 187 H Estimat Average Glucose Hemoglobin A1c Lactate Calcium Phosphorus Magnesium Procalcitonin 7.02 H Nasal Screen MRSA (PCR) Uninterpretable 12/17/19 12/17/19 12/17/19 04:32 04:32 04:32 WBC 26.91 H RBC 4.03 L Hgb 11.3 L Hct 36.6 L MCV 90.8 MCH 28.0 MCHC 30.9 L RDW Std Deviation 50.0 H RDW Coeff of Ana 15.0 H Plt Count 126 L MPV 10.3 Immature Gran % (Auto) 0.8 Neut % (Auto) 94.1 Lymph % (Auto) 3.3 [place] % (Auto) 1.7 Eos % (Auto) 0.0 Baso % (Auto) 0.1 Immature Gran # (Auto) 0.22 H Neut # (Auto) 25.33 H Lymph # (Auto) 0.89 L [place] # (Auto) 0.45 Eos # (Auto) 0.00 Baso # (Auto) 0.02 Sodium 141 Potassium 4.6 Chloride 108 H Carbon Dioxide 29 Anion Gap 4.0 BUN 27 H Creatinine 1.15 D Est Cr Clr Drug Dosing 64.4 Est GFR ( Amer) 58.2 Est GFR (Non-Af Amer) 50.2 BUN/Creatinine Ratio 23.2 H Glucose 206 H POC Glucose Estimat Average Glucose 126 Hemoglobin A1c 6.0 H Lactate Calcium 8.2 L Phosphorus Magnesium 2.3 Procalcitonin Nasal Screen MRSA (PCR) 12/17/19 12/17/19 12/17/19 04:32 06:31 11:14 WBC RBC Hgb Hct MCV MCH MCHC RDW Std Deviation RDW Coeff of Ana Plt Count MPV Immature Gran % (Auto) Neut % (Auto) Lymph % (Auto) [place] % (Auto) Eos % (Auto) Baso % (Auto) Immature Gran # (Auto) Neut # (Auto) Lymph # (Auto) [place] # (Auto) Eos # (Auto) Baso # (Auto) Sodium Potassium Chloride Carbon Dioxide Anion Gap BUN Creatinine Est Cr Clr Drug Dosing Est GFR ( Amer) Est GFR (Non-Af Amer) BUN/Creatinine Ratio Glucose POC Glucose 186 H 197 H Estimat Average Glucose Hemoglobin A1c Lactate 1.5 Calcium Phosphorus Magnesium Procalcitonin Nasal Screen MRSA (PCR) 12/17/19 12/17/19 11:30 16:38 WBC RBC Hgb Hct MCV MCH MCHC RDW Std Deviation RDW Coeff of Ana Plt Count MPV Immature Gran % (Auto) Neut % (Auto) Lymph % (Auto) [place] % (Auto) Eos % (Auto) Baso % (Auto) Immature Gran # (Auto) Neut # (Auto) Lymph # (Auto) [place] # (Auto) Eos # (Auto) Baso # (Auto) Sodium Potassium Chloride Carbon Dioxide Anion Gap BUN Creatinine Est Cr Clr Drug Dosing Est GFR ( Amer) Est GFR (Non-Af Amer) BUN/Creatinine Ratio Glucose POC Glucose 136 H Estimat Average Glucose Hemoglobin A1c Lactate Calcium Phosphorus Magnesium Procalcitonin Nasal Screen MRSA (PCR) Negative Medications Administered Current Inpatient Medications Albuterol (Duoneb) 3 ml NEB QIDR YAN Stop: 01/15/20 19:37 Last Admin: 12/17/19 18:50 Dose: 3 ml Documented by: Albuterol (Ventolin 0.5% 2.5mg/0.5ml) 2.5 mg NEB Q4H PRN PRN Reason: wheeze Stop: 01/15/20 19:37 Dextrose (Dextrose 50%) 25 - 50 ml IV UD PRN; Protocol PRN Reason: Hypoglycemia Protocol Stop: 01/15/20 19:37 Enoxaparin Sodium (Lovenox) 40 mg SQ Q24H YAN Stop: 01/15/20 20:59 Last Admin: 12/16/19 21:17 Dose: 40 mg Documented by: Furosemide (Lasix) 40 mg PO QAM YAN Stop: 01/17/20 08:59 Glucagon (Glucagen) 1 mg SQ UD PRN; Protocol PRN Reason: Hypoglycemia Protocol Stop: 01/15/20 19:37 Glucose (Dex4 Glucose) 4 - 8 tabs PO UD PRN; Protocol PRN Reason: Hypoglycemia Protocol Stop: 01/15/20 19:37 Glucose (Glucose 40%) 15 - 30 gm PO UD PRN; Protocol PRN Reason: Hypoglycemia Protocol Stop: 01/15/20 19:37 Famotidine 20 mg/ Syringe 5 mls @ 2.5 mls/min IV Q12H [facility] Stop: 01/15/20 20:29 Last Admin: 12/17/19 07:46 Dose: 2.5 mls/min Documented by: Methylprednisolone 60 mg/ (Syringe) 0.96 mls @ 1.5 mls/min IV BID [facility] Stop: 01/16/20 20:59 Ceftaroline Fosamil 600 mg/ (Sodium Chloride) 270 mls @ 270 mls/hr IV Q8H [facility] Stop: 12/24/19 11:59 Last Infusion: 12/17/19 12:43 Dose: Infused Documented by: Levofloxacin/Dextrose (Levaquin/D5w) 750 mg in 150 mls @ 100 mls/hr IV Q24H [facility] Stop: 12/24/19 13:59 Last Infusion: 12/17/19 17:21 Dose: Infused Documented by: Insulin Aspart (Novolog Flexpen) 0 units SC [facility]; Protocol Stop: 01/16/20 11:44 Last Admin: 12/17/19 16:50 Dose: 11 units Documented by: Insulin Glargine (Lantus Solostar Pen) 0 units SC [facility]; Protocol Stop: 12/17/19 21:01 Miscellaneous (Carbohydrates For Hypoglycemia) 15 - 30 gm PO UD PRN PRN Reason: Hypoglycemia Protocol Stop: 01/15/20 19:37 Miscellaneous Information (Consult Glycemic Management Pharmacy) 1 ea N/A UD PRN; Protocol PRN Reason: Consult Stop: 01/15/20 19:56 PG Care Time/CCT Total # of Minutes Spent Total Time Spent with Patient: Total time spent is greater than 50% in coordination of care (as documented) at patient's floor/unit and/or counseling patient: Coding Level of Care Code 42580 Subseq Hosp Care Lvl 3 Diagnoses Acute and chronic respiratory failure J96.20 Type 2 diabetes mellitus E11.9 Diastolic dysfunction I51.89 Coronary artery disease I25.10 COPD (chronic obstructive pulmonary disease) J44.9 COPD type: unspecified COPD Pneumonia J18.9 Laterality: unspecified laterality Lung location: unspecified part of lung Pneumonia type: due to unspecified organism (1) COPD (chronic obstructive pulmonary disease) COPD type: unspecified COPD Qualified Code(s): J44.9 - Chronic obstructive pulmonary disease, unspecified (2) Pneumonia Laterality: unspecified laterality Lung location: unspecified part of lung Pneumonia type: due to unspecified organism Qualified Code(s): J18.9 - Pneumonia, unspecified organism
[2019-12-17] MEDS: ENOXAPARIN INJ 40 MG/0.4 ML SYR SQ SCH (21:12)
[2019-12-18] MEDS ORDERED: LABETALOL HCL IV 5 MG/ML 20ML IV STA (00:48)
[2019-12-18] MEDS: CEFTAROLINE FOSAMIL ACETATE 600 MG in SODIUM CHLORIDE 0.9% 250 ML IV SCH (04:42)
[2019-12-18 05:03] LABS: Hematocrit (blood only) 35.5 % (37-47); Hemoglobin 11.2 g/dL (12.0-16.0); Immature Granulocytes # (auto) 0.07 K/uL (0.00-0.02); Immature Granulocytes % (auto) 0.4 %; Lymphocytes # (auto) 0.56 K/uL (1.2-3.4); Lymphocytes % (auto) 3.5 %; Mean Corpuscular Hemoglobin 28.4 pg (25-34); Mean Corpuscular Hgb Conc 31.5 g/dL (32-36); Mean Corpuscular Volume 89.9 fL (80-100); Mean Platelet Volume 10.6 fL (7.4-10.4); Monocytes # (auto) 0.21 K/uL (0.11-0.59); Monocytes % (auto) 1.3 %; Neutrophils # (auto) 15.09 K/uL (1.4-6.5); Neutrophils % (auto) 94.8 %; Platelet Count 141 K/uL (130-400); RDW Coefficient of Variation 14.6 % (11.5-14.5); RDW Standard Deviation 48.2 fL (36.4-46.3); Red Blood Count 3.95 M/uL (4.2-5.4); White Blood Count 15.93 K/uL (4.8-10.8)
[2019-12-18 05:07] LABS: BUN Creatinine Ratio 35.7 (10-20); Calcium 8.8 mg/dl (8.5-10.1); Creatinine Clr Calc Pharmacy 78.8 ml/min; Est GFR (African American) 74.3; Est GFR (Non-African American) 64.1; Magnesium 2.2 mg/dl (1.8-2.4); Phosphorus 3.3 mg/dl (2.5-4.9); Potassium 4.6 mmol/L (3.5-5.1)
--- NOTE | 2019-12-18 06:39 | Critical Care Progress Note ---
Date of Service December 18, 2019 Assessment & Plan (1) Respiratory failure: Reason Critically Ill: 63-year-old female with COPD on 6 L nasal cannula at baseline, presenting with severe shortness of breath; being treated for pneumonia on COPD exacerbation Neuro: - CAM ICU: Negative Cardiac: - Mild hypotension on admission, resolved with fluid resuscitation Respiratory: - Hypoxic hypercapnic respiratory failurepatient with history of COPD on 6 L nasal cannula at baseline, presents with acute on chronic respiratory failure - now maintaining sats >90% with 4L NC - BiPAP QHS & PRN - Chest x-ray showed bilateral parenchymal infiltrates - stopped teflaro; continue Levaquin for total course of 7 days - Influenza, bio fire negative - stopped IV solumedrol; started prednisone 40mg daily GI: - GERD Renal/Lytes: - GERALD on CKD: normal creatinine 1.0 and elevated 1.4 on this admission; down to 0.94 this AM - May be attributed to hypovolemia, as patient's blood pressure was initially hypotensive but improved with fluid - continue to trend creatinine with routine BMPs : - continue to monitor I's and O's ENDO: - T2DM:holding home dose metformin - continue SSI/Lantus - No history of thyroid disease HEME: - H&H stable - continue to monitor CBCs ID: - Pneumonia - bilateral infiltrates on chest x-ray, elevated WBC - Urine culture, blood cultures NG@24hrs - Lactate 1.5 - procalcitonin 7.02 down trended to 5.26 - Influenza and bio fire negative - MRSA swab negative - stopped teflaro; continue Levaquin for total course of 7 days Lines/IV Access: - Peripheral IVs DVT Prophylaxis: - SCDs, Lovenox Admission and Anticipated Discharge Date Admission Date: December 16, 2019 Supervising Physician Co-Signing Physician Notes Dr. Angelo was resident physician during care of patient. I separately evaluated patient for jane portions of the history and the exam. I was present during the critical portion of medical decision making, and I discussed the case with the resident. I generally agree with the findings and plan. I discussed the case with previous stakeholders all are in agreement that this clinical constellation does not suggest COVID-19 infection. We will discontinue airborne precautions as the constellation of the syndrome appears to be most consistent with an acute COPD exacerbation. Patient is stable for downgrade out of ICU. Patient only met criteria based off of the severity of disease and again she does not have a known COVID-19 exposure nor suggestive travel history. Subjective Patient feels considerably better this morning, feels like she has improved considerably from when she was admitted to the hospital. Has had no fevers for over 24 hours. No feelings of shortness of breath; continues to have feelings of wheeze that she feels like is her normal. Review of Systems Review of Systems: All systems reviewed & are unremarkable except as noted in Subjective Physical Exam Constitutional: WD/WN, vitals as above Eyes: PERRL, conjunctivae normal, anicteric sclerae ENMT: external ear and nose normal, oropharynx normal Neck: normal visual inspection Respiratory: able to speak in complete sentences and symmetric chest movement; no cough Auscultation: + diminished lung sounds (lower lobes b/l) and + wheezes; no crackles and no rales Cardiovascular: Rate/Rhythm: regular rate and regular rhythm Heart Sounds: normal S1 and normal S2; no gallop, no murmur and no cardiac rub Extremities: + pedal edema Gastrointestinal (Abdomen): normal bowel sounds, soft, nontender, no hepatosplenomegaly Musculoskeletal: no cyanosis or clubbing, extremities motor strength 5/5 Skin: no rashes, warm and dry Neurologic: normal touch/pain/proprioception, CN's II-XI intact bilaterally, deep tendon reflexes 2+ bilaterally, plantar reflexes intact bilaterally, moves all extremities and awake Psychiatric: A+Ox3, euthymic affect Lymphatic: no cervical or axillary lymphadenopathy Results & Data ([facility]) Vital Signs (Past 12 Hours) Vital Signs Temp Pulse Pulse Resp BP Pulse Ox 12/18/19 06:10 74 30 H 175/86 H 98 12/18/19 06:00 78 29 H 98 12/18/19 05:10 74 29 H 161/88 H 100 12/18/19 05:00 76 31 H 97 12/18/19 04:12 73 19 96 12/18/19 04:10 71 27 H 175/79 H 96 12/18/19 04:00 36.2 C L 76 33 H 95 12/18/19 03:10 75 17 177/73 H 97 12/18/19 03:00 73 27 H 97 12/18/19 02:10 74 18 176/84 H 97 12/18/19 02:00 72 32 H 97 12/18/19 01:54 71 31 H 173/87 H 98 12/18/19 01:45 75 26 H 184/83 H 97 12/18/19 01:11 84 22 181/113 H 97 12/18/19 01:00 97 H 25 H 98 12/18/19 00:10 90 23 189/128 H 99 12/18/19 00:00 36.8 C 92 H 13 99 12/17/19 23:10 94 H 16 193/103 H 99 12/17/19 23:00 97 H 39 H 99 12/17/19 22:10 108 H 22 180/116 H 96 12/17/19 22:05 104 H 22 191/104 H 97 12/17/19 22:03 104 H 27 H 191/124 H 96 12/17/19 22:00 110 H 17 93 12/17/19 21:10 94 H 21 183/84 H 98 12/17/19 21:00 97 H 16 97 12/17/19 20:10 111 H 21 163/111 H 95 12/17/19 20:00 37 C 104 H 20 96 12/17/19 19:10 102 H 13 162/97 H 96 12/17/19 19:07 106 H 18 96 12/17/19 19:00 94 H 35 H 100 12/17/19 18:45 99 H 24 97 Laboratory Results 12/18/19 12/18/19 12/18/19 Range/Units 07:39 04:38 04:38 WBC (4.8-10.8) K/uL RBC (4.2-5.4) M/uL Hgb (12.0-16.0) g/dL Hct (37-47) % MCV (80-100) fL MCH (25-34) pg MCHC (32-36) g/dL RDW Std Deviation (36.4-46.3) fL RDW Coeff of Ana (11.5-14.5) % Plt Count (130-400) K/uL MPV (7.4-10.4) fL Immature Gran % (Auto) % Neut % (Auto) % Lymph % (Auto) % [place] % (Auto) % Eos % (Auto) % Baso % (Auto) % Immature Gran # (Auto) (0.00-0.02) K/uL Neut # (Auto) (1.4-6.5) K/uL Lymph # (Auto) (1.2-3.4) K/uL [place] # (Auto) (0.11-0.59) K/uL Eos # (Auto) (0-0.5) K/uL Baso # (Auto) (0-0.2) K/uL Sodium 141 (136-145) mmol/L Potassium 4.6 (3.5-5.1) mmol/L Chloride 107 (98-107) mmol/L Carbon Dioxide 31 (21-32) mmol/L Anion Gap 3.0 (3-11) BUN 34 H (7-18) mg/dl Creatinine 0.94 (0.6-1.2) mg/dl Est Cr Clr Drug Dosing 78.8 ml/min Est GFR ( Amer) 74.3 Est GFR (Non-Af Amer) 64.1 BUN/Creatinine Ratio 35.7 H (10-20) Glucose 191 H (70-99) mg/dl POC Glucose 163 H (70-99) mg/dl Calcium 8.8 (8.5-10.1) mg/dl Phosphorus 3.3 (2.5-4.9) mg/dl Magnesium 2.2 (1.8-2.4) mg/dl Procalcitonin 5.26 H (0-0.5) ng/ml Nasal Screen MRSA (PCR) (Negative) 12/18/19 12/17/19 12/17/19 Range/Units 04:38 21:11 16:38 WBC 15.93 H (4.8-10.8) K/uL RBC 3.95 L (4.2-5.4) M/uL Hgb 11.2 L (12.0-16.0) g/dL Hct 35.5 L (37-47) % MCV 89.9 (80-100) fL MCH 28.4 (25-34) pg MCHC 31.5 L (32-36) g/dL RDW Std Deviation 48.2 H (36.4-46.3) fL RDW Coeff of Ana 14.6 H (11.5-14.5) % Plt Count 141 (130-400) K/uL MPV 10.6 H (7.4-10.4) fL Immature Gran % (Auto) 0.4 % Neut % (Auto) 94.8 % Lymph % (Auto) 3.5 % [place] % (Auto) 1.3 % Eos % (Auto) 0.0 % Baso % (Auto) 0.0 % Immature Gran # (Auto) 0.07 H (0.00-0.02) K/uL Neut # (Auto) 15.09 H (1.4-6.5) K/uL Lymph # (Auto) 0.56 L (1.2-3.4) K/uL [place] # (Auto) 0.21 (0.11-0.59) K/uL Eos # (Auto) 0.00 (0-0.5) K/uL Baso # (Auto) 0.00 (0-0.2) K/uL Sodium (136-145) mmol/L Potassium (3.5-5.1) mmol/L Chloride (98-107) mmol/L Carbon Dioxide (21-32) mmol/L Anion Gap (3-11) BUN (7-18) mg/dl Creatinine (0.6-1.2) mg/dl Est Cr Clr Drug Dosing ml/min Est GFR ( Amer) Est GFR (Non-Af Amer) BUN/Creatinine Ratio (10-20) Glucose (70-99) mg/dl POC Glucose 123 H 136 H (70-99) mg/dl Calcium (8.5-10.1) mg/dl Phosphorus (2.5-4.9) mg/dl Magnesium (1.8-2.4) mg/dl Procalcitonin (0-0.5) ng/ml Nasal Screen MRSA (PCR) (Negative) 12/17/19 12/17/19 Range/Units 11:30 11:14 WBC (4.8-10.8) K/uL RBC (4.2-5.4) M/uL Hgb (12.0-16.0) g/dL Hct (37-47) % MCV (80-100) fL MCH (25-34) pg MCHC (32-36) g/dL RDW Std Deviation (36.4-46.3) fL RDW Coeff of Ana (11.5-14.5) % Plt Count (130-400) K/uL MPV (7.4-10.4) fL Immature Gran % (Auto) % Neut % (Auto) % Lymph % (Auto) % [place] % (Auto) % Eos % (Auto) % Baso % (Auto) % Immature Gran # (Auto) (0.00-0.02) K/uL Neut # (Auto) (1.4-6.5) K/uL Lymph # (Auto) (1.2-3.4) K/uL [place] # (Auto) (0.11-0.59) K/uL Eos # (Auto) (0-0.5) K/uL Baso # (Auto) (0-0.2) K/uL Sodium (136-145) mmol/L Potassium (3.5-5.1) mmol/L Chloride (98-107) mmol/L Carbon Dioxide (21-32) mmol/L Anion Gap (3-11) BUN (7-18) mg/dl Creatinine (0.6-1.2) mg/dl Est Cr Clr Drug Dosing ml/min Est GFR ( Amer) Est GFR (Non-Af Amer) BUN/Creatinine Ratio (10-20) Glucose (70-99) mg/dl POC Glucose 197 H (70-99) mg/dl Calcium (8.5-10.1) mg/dl Phosphorus (2.5-4.9) mg/dl Magnesium (1.8-2.4) mg/dl Procalcitonin (0-0.5) ng/ml Nasal Screen MRSA (PCR) Negative (Negative) Medications Administered Current Inpatient Medications Albuterol (Duoneb) 3 ml NEB QIDR YAN Stop: 01/15/20 19:37 Last Admin: 12/18/19 07:48 Dose: 3 ml Documented by: Albuterol (Ventolin 0.5% 2.5mg/0.5ml) 2.5 mg NEB Q4H PRN PRN Reason: wheeze Stop: 01/15/20 19:37 Dextrose (Dextrose 50%) 25 - 50 ml IV UD PRN; Protocol PRN Reason: Hypoglycemia Protocol Stop: 01/15/20 19:37 Enoxaparin Sodium (Lovenox) 40 mg SQ Q24H YAN Stop: 01/15/20 20:59 Last Admin: 12/17/19 21:12 Dose: 40 mg Documented by: Furosemide (Lasix) 40 mg PO QAM YAN Stop: 01/17/20 08:59 Glucagon (Glucagen) 1 mg SQ UD PRN; Protocol PRN Reason: Hypoglycemia Protocol Stop: 01/15/20 19:37 Glucose (Dex4 Glucose) 4 - 8 tabs PO UD PRN; Protocol PRN Reason: Hypoglycemia Protocol Stop: 01/15/20 19:37 Glucose (Glucose 40%) 15 - 30 gm PO UD PRN; Protocol PRN Reason: Hypoglycemia Protocol Stop: 01/15/20 19:37 Heparin Sodium (Beef Lung) (Heparin Sod 10 Unit/Ml Flush) 5 ml FLUSH PRN PRN PRN Reason: Flush Stop: 01/16/20 23:32 Famotidine 20 mg/ Syringe 5 mls @ 2.5 mls/min IV Q12H [facility] Stop: 01/15/20 20:29 Last Admin: 12/18/19 07:41 Dose: 2.5 mls/min Documented by: Methylprednisolone 60 mg/ (Syringe) 0.96 mls @ 1.5 mls/min IV BID YAN Stop: 01/16/20 20:59 Last Admin: 12/18/19 07:42 Dose: 1.5 mls/min Documented by: Ceftaroline Fosamil 600 mg/ (Sodium Chloride) 270 mls @ 270 mls/hr IV Q8H [facility] Stop: 12/24/19 11:59 Last Infusion: 12/18/19 07:25 Dose: Infused Documented by: Levofloxacin/Dextrose (Levaquin/D5w) 750 mg in 150 mls @ 100 mls/hr IV Q24H YAN Stop: 12/24/19 13:59 Last Infusion: 12/17/19 17:21 Dose: Infused Documented by: Insulin Aspart (Novolog Flexpen) 0 units SC ACHS YAN; Protocol Stop: 01/16/20 11:44 Last Admin: 12/18/19 07:46 Dose: 7 units Documented by: Insulin Glargine (Lantus Solostar Pen) 20 units SC TODAY@0900 ONE Stop: 12/18/19 09:01 Miscellaneous (Carbohydrates For Hypoglycemia) 15 - 30 gm PO UD PRN PRN Reason: Hypoglycemia Protocol Stop: 01/15/20 19:37 Miscellaneous Information (Consult Glycemic Management Pharmacy) 1 ea N/A UD PRN; Protocol PRN Reason: Consult Stop: 01/15/20 19:56 Resident Activity Tracking Resident Involvement: Resident Care Provided Care Provided: Adult Hospital Medicine (1) Respiratory failure Chronicity: acute Respiratory failure complication: unspecified whether with hypoxia or hypercapnia Qualified Code(s): J96.00 - Acute respiratory failure, unspecified whether with hypoxia or hypercapnia
[2019-12-18] MEDS: FAMOTIDINE 20 MG in SYRINGE 3 ML IV SCH (07:41)
[2019-12-18] MEDS: methylPREDNISolone 60 MG in SYRINGE 0 ML IV SCH (07:42)
[2019-12-18] MEDS: INSULIN ASPART 100 UNITS/ML 3 ML PEN SC SCH ×4 (07:46→21:47)
[2019-12-18] MEDS: ALBUT/IPRATROP 3MG/0.5MG NEB 3 ML VIAL NEB SCH (07:48)
[2019-12-18] MEDS ORDERED: FUROSEMIDE 40 MG TAB PO SCH (09:00)
[2019-12-18] MEDS ORDERED: INSULIN GLARGINE SOLOSTAR 100 UNITS/ML 3 ML PEN SC ONE ×2 (09:00→21:00)
--- NOTE | 2019-12-18 10:08 | XRay Report ---
XR chest 1V portable CLINICAL HISTORY: respiratory disease dyspnea COMPARISON STUDY: 12/16/2019 FINDINGS: Similar parenchymal infiltrate right lung base. Left base is improved in aeration. IMPRESSION: 1. 1. Improved left basilar infiltrate. 2. Similar right base infiltrate. ACT 112: Negative or not required by law. The above report was generated using voice recognition software. It may contain grammatical, syntax or spelling errors. Electronically signed by: Naren Madrid M.D. 12/18/2019 10:07 AM
[2019-12-18] MEDS: predniSONE 20 MG TAB PO SCH (10:45)
[2019-12-18] MEDS: FAMOTIDINE 40 MG TABLET PO SCH (11:21)
--- NOTE | 2019-12-18 12:12 | Billing Data ---
Date of Service December 17, 2019 Coding Level of Care Code Critical Care 1st 30-74 mins Time Spent (min) 35
[2019-12-18] MEDS: SIMETHICONE 80 MG CHEW PO PRN (14:03)
[2019-12-18] MEDS: LEVOFLOXACIN/D5W 750 MG/150 ML BAG IV SCH (14:04)
--- NOTE | 2019-12-18 16:15 | Hospitalist Progress Note ---
Date of Service December 18, 2019 Assessment & Plan (1) Acute and chronic respiratory failure: Patient with acute on chronic respiratory failure marked improvement over 48 hours, titrated down to 3-4L NC cause is COPD exacerbation, likely pneumonia change Solu Medrol to Prednisone 40mg daily, duonebs, breathing much better today continue antibiotics for pneumonia, discontinue Ceftaroline, continue Levaquin WBC coming down to 15k, no fever influenza negative, Biofire negative, COVID 19 sent appreciate management per pamphlet distributor transfer to medical floor (2) Type 2 diabetes mellitus: some hyperglycemia with steroids, 225 this evening diabetic diet continue Novolog monitor for any hypoglycemia (3) Diastolic dysfunction: Patient does not have any evidence of acute CHF at this time. resume Lasix 40mg PO daily making good amount of urine via voley (4) Coronary artery disease: continue home medications, no evidence of ACS no chest pain or pressure (5) COPD (chronic obstructive pulmonary disease): as above (6) Pneumonia: as above treat with Levaquin, WBC down to 15k, no fever will need 7 days total therapy Admission and Anticipated Discharge Date Admission Date: December 16, 2019 Subjective patient doing much better, titrated down to 3-4 liters NC today breathing more comfortably, no wheezing, minimal cough appetite is improving, no nausea, no abdominal pain d/w Dr. Lee, no fever, will remove airborn precautions and transfer to the floor today reviewed labs, WBC down to 15k, Hb 11, Cr 0.9 and electrolytes stable reviewed cultures, no growth on blood cultures, urine culture, MRSA nasal swab negative appreciate input from Dr. Lee with this case Review of Systems Review of Systems: All systems reviewed & are unremarkable except as noted in HPI & below Constitutional: + fatigue and + weakness; no fever Respiratory: + cough, + dyspnea and + dyspnea on exertion; no sputum production and no wheezing Cardiovascular: no chest pain and no edema Gastrointestinal: no abdominal pain, no nausea and no vomiting Physical Exam Constitutional: WD/WN, vitals as above + overweight; no acute distress Eyes: PERRL, conjunctivae normal, anicteric sclerae ENMT: external ear and nose normal, oropharynx normal Neck: trachea midline, no thyromegaly Respiratory: normal respiratory effort; no respiratory distress Auscultation: + diminished lung sounds; no rales, no rhonchi and no wheezes Cardiovascular: Rate/Rhythm: regular rhythm and + tachycardic Heart Sounds: normal S1 and normal S2; no murmur Extremities: normal capillary refill; no edema Gastrointestinal (Abdomen): normal bowel sounds, soft, nontender, no hepatosplenomegaly Musculoskeletal: no cyanosis or clubbing, extremities motor strength 5/5 Skin: no rashes, warm and dry Neurologic: patellar DTR's 2+ bilat, sensation intact and PERRL, EOMI, accommodation nl, no face palsy, no dysarthria Psychiatric: A+Ox3, euthymic affect Lymphatic: no cervical or axillary lymphadenopathy Results & Data ([facility]) Vital Signs (Past 12 Hours) Vital Signs Temp Pulse Pulse Resp BP Pulse Ox 12/18/19 15:37 98 12/18/19 10:40 36.5 C 98 H 17 184/81 H 95 12/18/19 09:10 90 18 169/76 H 96 12/18/19 08:15 36.6 C 95 H 18 95 12/18/19 08:14 100 H 27 H 186/101 H 95 12/18/19 07:48 94 H 18 92 12/18/19 07:11 69 22 155/68 H 95 12/18/19 06:10 74 30 H 175/86 H 98 12/18/19 06:00 78 29 H 98 12/18/19 05:10 74 29 H 161/88 H 100 12/18/19 05:00 76 31 H 97 Laboratory Results Laboratory Results - last 24 hr 12/17/19 12/17/19 12/18/19 16:38 21:11 04:38 WBC 15.93 H RBC 3.95 L Hgb 11.2 L Hct 35.5 L MCV 89.9 MCH 28.4 MCHC 31.5 L RDW Std Deviation 48.2 H RDW Coeff of Ana 14.6 H Plt Count 141 MPV 10.6 H Immature Gran % (Auto) 0.4 Neut % (Auto) 94.8 Lymph % (Auto) 3.5 [place] % (Auto) 1.3 Eos % (Auto) 0.0 Baso % (Auto) 0.0 Immature Gran # (Auto) 0.07 H Neut # (Auto) 15.09 H Lymph # (Auto) 0.56 L [place] # (Auto) 0.21 Eos # (Auto) 0.00 Baso # (Auto) 0.00 Sodium Potassium Chloride Carbon Dioxide Anion Gap BUN Creatinine Est Cr Clr Drug Dosing Est GFR ( Amer) Est GFR (Non-Af Amer) BUN/Creatinine Ratio Glucose POC Glucose 136 H 123 H Calcium Phosphorus Magnesium Procalcitonin 12/18/19 12/18/19 12/18/19 04:38 04:38 07:39 WBC RBC Hgb Hct MCV MCH MCHC RDW Std Deviation RDW Coeff of Ana Plt Count MPV Immature Gran % (Auto) Neut % (Auto) Lymph % (Auto) [place] % (Auto) Eos % (Auto) Baso % (Auto) Immature Gran # (Auto) Neut # (Auto) Lymph # (Auto) [place] # (Auto) Eos # (Auto) Baso # (Auto) Sodium 141 Potassium 4.6 Chloride 107 Carbon Dioxide 31 Anion Gap 3.0 BUN 34 H Creatinine 0.94 Est Cr Clr Drug Dosing 78.8 Est GFR ( Amer) 74.3 Est GFR (Non-Af Amer) 64.1 BUN/Creatinine Ratio 35.7 H Glucose 191 H POC Glucose 163 H Calcium 8.8 Phosphorus 3.3 Magnesium 2.2 Procalcitonin 5.26 H 12/18/19 12:00 WBC RBC Hgb Hct MCV MCH MCHC RDW Std Deviation RDW Coeff of Ana Plt Count MPV Immature Gran % (Auto) Neut % (Auto) Lymph % (Auto) [place] % (Auto) Eos % (Auto) Baso % (Auto) Immature Gran # (Auto) Neut # (Auto) Lymph # (Auto) [place] # (Auto) Eos # (Auto) Baso # (Auto) Sodium Potassium Chloride Carbon Dioxide Anion Gap BUN Creatinine Est Cr Clr Drug Dosing Est GFR ( Amer) Est GFR (Non-Af Amer) BUN/Creatinine Ratio Glucose POC Glucose 155 H Calcium Phosphorus Magnesium Procalcitonin Medications Administered Current Inpatient Medications Albuterol (Ventolin 0.5% 2.5mg/0.5ml) 2.5 mg NEB Q4H PRN PRN Reason: wheeze Stop: 01/15/20 19:37 Dextrose (Dextrose 50%) 25 - 50 ml IV UD PRN; Protocol PRN Reason: Hypoglycemia Protocol Stop: 01/15/20 19:37 Enoxaparin Sodium (Lovenox) 40 mg SQ Q24H YAN Stop: 01/15/20 20:59 Last Admin: 12/17/19 21:12 Dose: 40 mg Documented by: Famotidine (Pepcid) 40 mg PO QAM YAN Stop: 01/17/20 10:36 Last Admin: 12/18/19 11:21 Dose: 40 mg Documented by: Glucagon (Glucagen) 1 mg SQ UD PRN; Protocol PRN Reason: Hypoglycemia Protocol Stop: 01/15/20 19:37 Glucose (Dex4 Glucose) 4 - 8 tabs PO UD PRN; Protocol PRN Reason: Hypoglycemia Protocol Stop: 01/15/20 19:37 Glucose (Glucose 40%) 15 - 30 gm PO UD PRN; Protocol PRN Reason: Hypoglycemia Protocol Stop: 01/15/20 19:37 Heparin Sodium (Beef Lung) (Heparin Sod 10 Unit/Ml Flush) 5 ml FLUSH PRN PRN PRN Reason: Flush Stop: 01/16/20 23:32 Levofloxacin/Dextrose (Levaquin/D5w) 750 mg in 150 mls @ 100 mls/hr IV Q24H YAN Stop: 12/24/19 13:59 Last Infusion: 12/18/19 15:54 Dose: Infused Documented by: Insulin Aspart (Novolog Flexpen) 0 units SC ACHS [facility]; Protocol Stop: 01/16/20 11:44 Last Admin: 12/18/19 12:53 Dose: 1 units Documented by: Insulin Glargine (Lantus Solostar Pen) 0 units SC [facility]; Protocol Stop: 12/18/19 21:01 Miscellaneous (Carbohydrates For Hypoglycemia) 15 - 30 gm PO UD PRN PRN Reason: Hypoglycemia Protocol Stop: 01/15/20 19:37 Miscellaneous Information (Consult Glycemic Management Pharmacy) 1 ea N/A UD PRN; Protocol PRN Reason: Consult Stop: 01/15/20 19:56 Prednisone (Prednisone) 40 mg PO DAILY [facility] Stop: 12/21/19 09:01 Last Admin: 12/18/19 10:45 Dose: 40 mg Documented by: Simethicone (Mylicon) 80 mg PO Q6H PRN PRN Reason: Gas or Constipation Stop: 01/17/20 13:26 Last Admin: 12/18/19 14:03 Dose: 80 mg Documented by: PG Care Time/CCT Total # of Minutes Spent Total Time Spent with Patient: Total time spent is greater than 50% in coordination of care (as documented) at patient's floor/unit and/or counseling patient: Coding Level of Care Code 87068 Subseq Hosp Care Lvl 3 Diagnoses Acute and chronic respiratory failure J96.20 Type 2 diabetes mellitus E11.9 Diastolic dysfunction I51.89 Coronary artery disease I25.10 COPD (chronic obstructive pulmonary disease) J44.9 COPD type: unspecified COPD Pneumonia J18.9 Laterality: unspecified laterality Lung location: unspecified part of lung Pneumonia type: due to unspecified organism (1) COPD (chronic obstructive pulmonary disease) COPD type: unspecified COPD Qualified Code(s): J44.9 - Chronic obstructive pulmonary disease, unspecified (2) Pneumonia Laterality: unspecified laterality Lung location: unspecified part of lung Pneumonia type: due to unspecified organism Qualified Code(s): J18.9 - Pneumonia, unspecified organism
[2019-12-18] MEDS: ENOXAPARIN INJ 40 MG/0.4 ML SYR SQ SCH (21:48)
[2019-12-19 06:02] LABS: Basophils # (auto) 0.01 K/uL (0-0.2); Basophils % (auto) 0.1 %; Hematocrit (blood only) 38.2 % (37-47); Immature Granulocytes # (auto) 0.09 K/uL (0.00-0.02); Immature Granulocytes % (auto) 0.9 %; Lymphocytes # (auto) 0.62 K/uL (1.2-3.4); Lymphocytes % (auto) 6.3 %; Mean Corpuscular Hgb Conc 31.4 g/dL (32-36); Mean Platelet Volume 10.4 fL (7.4-10.4); Monocytes # (auto) 0.37 K/uL (0.11-0.59); Monocytes % (auto) 3.8 %; Neutrophils % (auto) 88.9 %; Platelet Count 189 K/uL (130-400); RDW Coefficient of Variation 14.5 % (11.5-14.5); RDW Standard Deviation 47.1 fL (36.4-46.3); Red Blood Count 4.29 M/uL (4.2-5.4); White Blood Count 9.79 K/uL (4.8-10.8)
[2019-12-19 06:36] LABS: BUN Creatinine Ratio 37.2 (10-20); Calcium 9.6 mg/dl (8.5-10.1); Creatinine Clr Calc Pharmacy 78.3 ml/min; Est GFR (African American) 78.3; Est GFR (Non-African American) 67.6; Magnesium 2.1 mg/dl (1.8-2.4); Potassium 4.1 mmol/L (3.5-5.1)
[2019-12-19 06:41] LABS: Phosphorus 2.3 mg/dl (2.5-4.9)
[2019-12-19] MEDS: SIMETHICONE 80 MG CHEW PO PRN (07:49)
[2019-12-19] MEDS: predniSONE 20 MG TAB PO SCH (08:54)
[2019-12-19] MEDS: FAMOTIDINE 40 MG TABLET PO SCH (08:54)
[2019-12-19] MEDS: INSULIN ASPART 100 UNITS/ML 3 ML PEN SC SCH ×3 (08:57→17:40)
[2019-12-19] MEDS ORDERED: NovoLIN-N (NPH) PER UNIT CHARGE SQ SCH (09:00)
[2019-12-19] MEDS: ALBUTEROL 0.5% NEB SOLN 2.5 MG/0.5 ML VIAL NEB PRN ×3 (09:06→21:34)
--- NOTE | 2019-12-19 10:23 | Pharmacy Report ---
Pharmacy Glycemic Short Note 2 - Date of Service December 19, 2019 - Glycemic Short BSG Results (Last 24 hours): 12/18/19 12/18/19 12/18/19 12:00 17:13 20:44 Glucose POC Glucose 155 H 196 H 225 H 12/19/19 12/19/19 05:41 08:09 Glucose 137 H POC Glucose 138 H OUTPATIENT ANTIDIABETIC REGIMEN: * metformin 500mg ER BID * A1C: 6% 12/17/19 ASSESSMENT: * Steroids tapered from Solu-medrol 60 mg IV q12h to prednisone 40 mg PO daily * Will utilize once daily NPH to cover for once daily steroid * BSGs ranging 155-225 mg/dL yesterday * Patient received 58 units of insulin (40 units of basal and 18 units of correctional/prandial * Fasting BSG this morning of 138 mg/dL PLAN FOR INPATIENT GLYCEMIC CONTROL: * Hold outpatient oral diabetes medications * Basal insulin * Lantus d/c'd * Will utilize once daily NPH 30 units (0.4 unit/kg based on adjusted body weight) * Bolus insulin - continue * NovoLog per scale ACHS or Q6hrs while NPO * Goal Range: Low 120 mg/dL - High 160 mg/dL * Correction Factor: 20 mg/dL/unit * Nutritional / Prandial insulin per carb ratio of 1 unit per 7 grams CHO consumed DISCHARGE PLAN: * Inpatient hyperglycemia most certainly attributed to steroids * A1c of 6% demonstrates good glycemic control - if not discharged with steroids, then patient can likely be discharged on current regimen of metformin 500 mg PO ER BID * If discharged with steroids - may consider once daily NPH or glipizide given with PO steroid (doses to be determined)
[2019-12-19] MEDS ORDERED: bisacodyL 10 MG SUPP PR ONE (11:00)
--- NOTE | 2019-12-19 12:14 | Hospitalist Progress Note ---
Date of Service December 19, 2019 Assessment & Plan (1) Acute and chronic respiratory failure: Patient with acute on chronic respiratory failure marked improvement over 72 hours, titrated down to 4L NC (says she wears 6L at home) cause is COPD exacerbation, likely caused by pneumonia change Solu Medrol to Prednisone 40mg daily, duonebs, breathing much better today continue antibiotics for pneumonia, discontinue Ceftaroline, continue Levaquin WBC coming down to 9k, no fever influenza negative, Biofire negative, COVID 19 sent (still pending) appreciate management per custodian blood bank transfer to medical floor on 12/17 (2) Type 2 diabetes mellitus: no hyperglycemic episodes today diabetic diet continue Novolog SS monitor for any hypoglycemia (3) Diastolic dysfunction: Patient does not have any evidence of acute CHF at this time. continue Lasix 40mg PO daily making good amount of urine via voley will keep abdullahi for now to keep bladder drained to help with moving bowels (4) Coronary artery disease: continue home medications, no evidence of ACS no chest pain or pressure (5) COPD (chronic obstructive pulmonary disease): as above (6) Pneumonia: as above treat with Levaquin, WBC down to 9k, no fever will need 7 days total therapy (7) Constipation: abdomen distended, not passing gas has a good appetite, no nausea will try suppository and Lactulose TID until she moves her bowels, then stop Admission and Anticipated Discharge Date Admission Date: December 16, 2019 Subjective patient doing well, sitting up in chair breathing calmly, she is down to 4L NC, she typically wears 6L at home her main complaint is some abdominal distension, she cannot pass gas or move her bowels she typically moves her bowels every few days at home suggested trying suppository and Lactulose, she agrees she is participating with therapy discussed going home in a few days, she agrees updated RN about plan to try to get her to move bowels reviewed labs, WBC down to normal at 9k, Hb 12 BMP shows stable renal function and electrolytes Review of Systems Review of Systems: All systems reviewed & are unremarkable except as noted in HPI & below Respiratory: + dyspnea on exertion Cardiovascular: no chest pain and no edema Gastrointestinal: + bloating and + constipation; no abdominal pain, no nausea, no vomiting and no diarrhea/loose stools Physical Exam Constitutional: WD/WN, vitals as above + overweight; no acute distress Eyes: PERRL, conjunctivae normal, anicteric sclerae ENMT: external ear and nose normal, oropharynx normal Neck: trachea midline, no thyromegaly Respiratory: normal respiratory effort; no respiratory distress Auscultation: + diminished lung sounds; no rales, no rhonchi and no wheezes Cardiovascular: Rate/Rhythm: regular rhythm and + tachycardic Heart Sounds: normal S1 and normal S2; no murmur Extremities: normal capillary refill; no edema Gastrointestinal (Abdomen): Inspection/Auscultation: + abdomen distended and normal bowel sounds Percussion/Palpation: abdomen nontender, no guarding, abdomen not rigid, + abdomen not soft and no hernia Musculoskeletal: no cyanosis or clubbing, extremities motor strength 5/5 Skin: no rashes, warm and dry Neurologic: patellar DTR's 2+ bilat, sensation intact and PERRL, EOMI, accommodation nl, no face palsy, no dysarthria Psychiatric: A+Ox3, euthymic affect Lymphatic: no cervical or axillary lymphadenopathy Results & Data ([facility]) Vital Signs (Past 12 Hours) Vital Signs Temp Pulse Pulse Resp BP Pulse Ox 12/19/19 09:06 107 H 20 93 12/19/19 07:19 36.5 C 83 16 173/99 H 98 12/19/19 02:32 97 H 14 94 Laboratory Results Laboratory Results - last 24 hr 12/18/19 12/18/19 12/19/19 17:13 20:44 05:41 WBC 9.79 RBC 4.29 Hgb 12.0 Hct 38.2 MCV 89.0 MCH 28.0 MCHC 31.4 L RDW Std Deviation 47.1 H RDW Coeff of Ana 14.5 Plt Count 189 MPV 10.4 Immature Gran % (Auto) 0.9 Neut % (Auto) 88.9 Lymph % (Auto) 6.3 [place] % (Auto) 3.8 Eos % (Auto) 0.0 Baso % (Auto) 0.1 Immature Gran # (Auto) 0.09 H Neut # (Auto) 8.70 H Lymph # (Auto) 0.62 L [place] # (Auto) 0.37 Eos # (Auto) 0.00 Baso # (Auto) 0.01 Sodium Potassium Chloride Carbon Dioxide Anion Gap BUN Creatinine Est Cr Clr Drug Dosing Est GFR ( Amer) Est GFR (Non-Af Amer) BUN/Creatinine Ratio Glucose POC Glucose 196 H 225 H Calcium Phosphorus Magnesium 12/19/19 12/19/19 12/19/19 05:41 08:09 12:12 WBC RBC Hgb Hct MCV MCH MCHC RDW Std Deviation RDW Coeff of Ana Plt Count MPV Immature Gran % (Auto) Neut % (Auto) Lymph % (Auto) [place] % (Auto) Eos % (Auto) Baso % (Auto) Immature Gran # (Auto) Neut # (Auto) Lymph # (Auto) [place] # (Auto) Eos # (Auto) Baso # (Auto) Sodium 140 Potassium 4.1 Chloride 103 Carbon Dioxide 34 H Anion Gap 4.0 BUN 33 H Creatinine 0.90 Est Cr Clr Drug Dosing 78.3 Est GFR ( Amer) 78.3 Est GFR (Non-Af Amer) 67.6 BUN/Creatinine Ratio 37.2 H Glucose 137 H POC Glucose 138 H 95 Calcium 9.6 Phosphorus 2.3 L D Magnesium 2.1 Medications Administered Current Inpatient Medications Albuterol (Ventolin 0.5% 2.5mg/0.5ml) 2.5 mg NEB Q4H PRN PRN Reason: wheeze Stop: 01/15/20 19:37 Last Admin: 12/19/19 09:06 Dose: 2.5 mg Documented by: Dextrose (Dextrose 50%) 25 - 50 ml IV UD PRN; Protocol PRN Reason: Hypoglycemia Protocol Stop: 01/15/20 19:37 Enoxaparin Sodium (Lovenox) 40 mg SQ Q24H [facility] Stop: 01/15/20 20:59 Last Admin: 12/18/19 21:48 Dose: 40 mg Documented by: Famotidine (Pepcid) 40 mg PO QAM YAN Stop: 01/17/20 10:36 Last Admin: 12/19/19 08:54 Dose: 40 mg Documented by: Glucagon (Glucagen) 1 mg SQ UD PRN; Protocol PRN Reason: Hypoglycemia Protocol Stop: 01/15/20 19:37 Glucose (Dex4 Glucose) 4 - 8 tabs PO UD PRN; Protocol PRN Reason: Hypoglycemia Protocol Stop: 01/15/20 19:37 Glucose (Glucose 40%) 15 - 30 gm PO UD PRN; Protocol PRN Reason: Hypoglycemia Protocol Stop: 01/15/20 19:37 Heparin Sodium (Beef Lung) (Heparin Sod 10 Unit/Ml Flush) 5 ml FLUSH PRN PRN PRN Reason: Flush Stop: 01/16/20 23:32 Hydralazine HCl (Hydralazine Hcl) 10 mg IV Q6 PRN PRN Reason: Blood Pressure - High Stop: 01/18/20 10:26 Insulin Aspart (Novolog Flexpen) 0 units SC ACHS YAN; Protocol Stop: 01/16/20 11:44 Last Admin: 12/19/19 12:36 Dose: 4 units Documented by: Lactulose (Chronulac) 20 gm PO TID YAN Stop: 01/18/20 13:59 Last Admin: 12/19/19 14:03 Dose: 20 gm Documented by: Levofloxacin (Levaquin) 750 mg PO Q24H [facility] Stop: 12/22/19 14:01 Last Admin: 12/19/19 14:03 Dose: 750 mg Documented by: Miscellaneous (Carbohydrates For Hypoglycemia) 15 - 30 gm PO UD PRN PRN Reason: Hypoglycemia Protocol Stop: 01/15/20 19:37 Miscellaneous Information (Consult Glycemic Management Pharmacy) 1 ea N/A UD PRN; Protocol PRN Reason: Consult Stop: 01/15/20 19:56 Prednisone (Prednisone) 40 mg PO DAILY [facility] Stop: 12/21/19 09:01 Last Admin: 12/19/19 08:54 Dose: 40 mg Documented by: Simethicone (Mylicon) 80 mg PO Q6H PRN PRN Reason: Gas or Constipation Stop: 01/17/20 13:26 Last Admin: 12/19/19 07:49 Dose: 80 mg Documented by: PG Care Time/CCT Total # of Minutes Spent Total Time Spent with Patient: Total time spent is greater than 50% in coordination of care (as documented) at patient's floor/unit and/or counseling patient: Coding Level of Care Code 97457 Subseq Hosp Care Lvl 3 Diagnoses Acute and chronic respiratory failure J96.20 Type 2 diabetes mellitus E11.9 Diastolic dysfunction I51.89 Coronary artery disease I25.10 COPD (chronic obstructive pulmonary disease) J44.9 COPD type: unspecified COPD Pneumonia J18.9 Laterality: unspecified laterality Lung location: unspecified part of lung Pneumonia type: due to unspecified organism Constipation K59.00 (1) COPD (chronic obstructive pulmonary disease) COPD type: unspecified COPD Qualified Code(s): J44.9 - Chronic obstructive pulmonary disease, unspecified (2) Pneumonia Laterality: unspecified laterality Lung location: unspecified part of lung Pneumonia type: due to unspecified organism Qualified Code(s): J18.9 - Pneumonia, unspecified organism
[2019-12-19] MEDS: levoFLOXacin 750 MG TAB PO SCH (14:03)
[2019-12-19] MEDS: LACTULOSE SYRUP 20 GM/30 ML UDC PO SCH ×2 (14:03→21:15)
[2019-12-19] MEDS: HydrALAZINE HCL 20 MG/ML VIAL IV PRN (18:05)
--- NOTE | 2019-12-19 19:19 | XRay Report ---
XR abdomen min 2V CLINICAL HISTORY: Abdominal distention and constipation. COMPARISON STUDY: No previous studies for comparison. FINDINGS: The study is limited from a technical standpoint due to the patient's large body habitus. T here is colonic dilatation down to the level of the distal sigmoid. The findings could be secondary t o either a colonic ileus, or distal colonic obstruction. There are colonic air-fluid levels. No free air is visualized in the provided images. IMPRESSION: 1. Colonic distention down to the level of the distal sigmoid. The findings could be secondary to eit her a colonic ileus, or distal colonic obstruction. ACT 112: Negative or not required by law. Electronically signed by: Remy Peacock M.D. 12/19/2019 7:17 PM
[2019-12-19] MEDS ORDERED: SOD PHOSPHATE/SOD BIPHOSPHATE ENEMA 132 ML BTL PR STA (19:30)
[2019-12-19] MEDS ORDERED: Nursing to Pharmacy Communication ONE (19:30)
[2019-12-19] MEDS: ENOXAPARIN INJ 40 MG/0.4 ML SYR SQ SCH (21:42)
[2019-12-20] MEDS: INSULIN ASPART 100 UNITS/ML 3 ML PEN SC SCH ×5 (00:18→21:20)
[2019-12-20] MEDS: ALBUTEROL 0.5% NEB SOLN 2.5 MG/0.5 ML VIAL NEB PRN ×4 (04:15→21:54)
[2019-12-20 05:44] LABS: Basophils # (auto) 0.01 K/uL (0-0.2); Basophils % (auto) 0.1 %; Hemoglobin 12.3 g/dL (12.0-16.0); Immature Granulocytes # (auto) 0.11 K/uL (0.00-0.02); Immature Granulocytes % (auto) 1.2 %; Lymphocytes # (auto) 1.47 K/uL (1.2-3.4); Lymphocytes % (auto) 16.6 %; Mean Corpuscular Hemoglobin 28.1 pg (25-34); Mean Corpuscular Hgb Conc 31.5 g/dL (32-36); Monocytes # (auto) 0.62 K/uL (0.11-0.59); Neutrophils # (auto) 6.63 K/uL (1.4-6.5); Neutrophils % (auto) 75.1 %; Platelet Count 178 K/uL (130-400); RDW Coefficient of Variation 14.2 % (11.5-14.5); RDW Standard Deviation 46.3 fL (36.4-46.3); Red Blood Count 4.38 M/uL (4.2-5.4); White Blood Count 8.84 K/uL (4.8-10.8)
[2019-12-20 06:25] LABS: BUN Creatinine Ratio 41.3 (10-20); Calcium 9.4 mg/dl (8.5-10.1); Creatinine Clr Calc Pharmacy 85.7 ml/min; Est GFR (Non-African American) 76.8; Magnesium 1.9 mg/dl (1.8-2.4); Phosphorus 2.4 mg/dl (2.5-4.9); Potassium 3.2 mmol/L (3.5-5.1)
[2019-12-20] MEDS ORDERED: POTASSIUM ACETATE 10 MEQ in 0.9 % SODIUM CHLORIDE 100 ML IV STA (08:35)
--- NOTE | 2019-12-20 08:38 | Hospitalist Progress Note ---
Date of Service December 20, 2019 Assessment & Plan (1) Constipation: abdomen distended, not passing gas has a good appetite, no nausea CT abdomen/pelvis on 12/19 with 9cm segment of sigmoid colon that is collapsed, represents colonic ileus d/w GI, this will resolve, just takes time recommend Miralax BID and colace BID continue liquid diet, encourage activity but patient very sluggish, not motivated to move no enemas as this would increase risk of bowel perforation (2) Acute and chronic respiratory failure: Patient with acute on chronic respiratory failure marked improvement over 4 days, titrated down to 4L NC (says she wears 6L at home) COPD exacerbation, likely caused by pneumonia change Solu Medrol to Prednisone 40mg daily, duonebs, breathing is stable continue antibiotics for pneumonia, discontinue Ceftaroline, continue Levaquin WBC coming down to 8k, no fever influenza negative, Biofire negative, COVID 19 sent cancelled appreciate management per sales and production manager transfer to medical floor on 12/17 (3) Type 2 diabetes mellitus: no hyperglycemic episodes today diabetic diet continue Novolog monitor for any hypoglycemia, no episodes today (4) Diastolic dysfunction: Patient does not have any evidence of acute CHF at this time. continue Lasix 40mg PO daily making good amount of urine via voley will keep abdullahi for now to keep bladder drained to help with moving bowels (5) Coronary artery disease: continue home medications, no evidence of ACS no chest pain or pressure (6) COPD (chronic obstructive pulmonary disease): as above (7) Pneumonia: as above treat with Levaquin, WBC down to 8k, no fever will need 7 days total therapy Admission and Anticipated Discharge Date Admission Date: December 16, 2019 Subjective patient laying in bed, says that her abdomen is still distended, still hurts but less than yesterday she had a small liquid BM with the lactulose in the evening, then last night had two liquid BM after the enema not passing much gas hypoactive bowel sounds on exam, very tympanitic will allow liquid diet, she admits she is not very hungry her breathing is stable on 4L labs show K is 3.2, WBC 8k, Cr is 0.8 d/w Dr. Noel, he recommended CT with oral and IV contrast CT shows 9cm segment of sigmoid colon that is collapsed, with dilation of proximal colon with gas and stool this represents a colonic ileus GI recommends Miralax BID and can also give Colace, no enemas Review of Systems Review of Systems: All systems reviewed & are unremarkable except as noted in HPI & below Constitutional: no fever and no sweats Respiratory: no cough and no dyspnea Cardiovascular: no chest pain Gastrointestinal: + abdominal pain, + bloating and + constipation; no nausea, no vomiting and no diarrhea/loose stools Physical Exam Constitutional: WD/WN, vitals as above + overweight; no acute distress Eyes: PERRL, conjunctivae normal, anicteric sclerae ENMT: external ear and nose normal, oropharynx normal Neck: trachea midline, no thyromegaly Respiratory: normal respiratory effort; no respiratory distress Auscultation: + diminished lung sounds; no rales, no rhonchi and no wheezes Cardiovascular: Rate/Rhythm: regular rhythm and + tachycardic Heart Sounds: normal S1 and normal S2; no murmur Extremities: normal capillary refill; no edema Gastrointestinal (Abdomen): Inspection/Auscultation: + abdomen distended and + hypoactive bowel sounds Percussion/Palpation: abdomen nontender, no guarding, abdomen not rigid, + abdomen not soft and no hernia Musculoskeletal: no cyanosis or clubbing, extremities motor strength 5/5 Skin: no rashes, warm and dry Neurologic: patellar DTR's 2+ bilat, sensation intact and PERRL, EOMI, accommodation nl, no face palsy, no dysarthria Psychiatric: A+Ox3, euthymic affect Lymphatic: no cervical or axillary lymphadenopathy Results & Data ([facility]) Vital Signs (Past 12 Hours) Vital Signs Temp Pulse Pulse Pulse Resp BP BP 12/20/19 07:28 36.6 C 103 H 16 159/79 H 12/20/19 04:15 110 H 18 12/20/19 00:59 99 H 12/20/19 00:19 119 H 12/19/19 23:56 36.4 C L 132 H 16 166/99 H 12/19/19 22:58 105 H 18 12/19/19 22:47 108 H 16 12/19/19 21:34 105 H 16 12/19/19 21:27 36.5 C 108 H 16 168/97 H Pulse Ox 12/20/19 07:28 96 12/20/19 04:15 95 12/20/19 00:59 12/20/19 00:19 12/19/19 23:56 91 12/19/19 22:58 95 12/19/19 22:47 98 12/19/19 21:34 94 12/19/19 21:27 94 Laboratory Results Laboratory Results - last 24 hr 12/19/19 12/19/19 12/19/19 12:12 17:03 21:07 WBC RBC Hgb Hct MCV MCH MCHC RDW Std Deviation RDW Coeff of Ana Plt Count MPV Immature Gran % (Auto) Neut % (Auto) Lymph % (Auto) [place] % (Auto) Eos % (Auto) Baso % (Auto) Immature Gran # (Auto) Neut # (Auto) Lymph # (Auto) [place] # (Auto) Eos # (Auto) Baso # (Auto) Sodium Potassium Chloride Carbon Dioxide Anion Gap BUN Creatinine Est Cr Clr Drug Dosing Est GFR ( Amer) Est GFR (Non-Af Amer) BUN/Creatinine Ratio Glucose POC Glucose 95 131 H 146 H Calcium Phosphorus Magnesium 12/20/19 12/20/19 12/20/19 00:03 05:18 05:18 WBC 8.84 RBC 4.38 Hgb 12.3 Hct 39.0 MCV 89.0 MCH 28.1 MCHC 31.5 L RDW Std Deviation 46.3 RDW Coeff of Ana 14.2 Plt Count 178 MPV 10.0 Immature Gran % (Auto) 1.2 Neut % (Auto) 75.1 Lymph % (Auto) 16.6 [place] % (Auto) 7.0 Eos % (Auto) 0.0 Baso % (Auto) 0.1 Immature Gran # (Auto) 0.11 H Neut # (Auto) 6.63 H Lymph # (Auto) 1.47 [place] # (Auto) 0.62 H Eos # (Auto) 0.00 Baso # (Auto) 0.01 Sodium 144 Potassium 3.2 L D Chloride 103 Carbon Dioxide 37 H Anion Gap 4.0 BUN 33 H Creatinine 0.81 Est Cr Clr Drug Dosing 85.7 Est GFR ( Amer) 89.0 Est GFR (Non-Af Amer) 76.8 BUN/Creatinine Ratio 41.3 H Glucose 111 H POC Glucose 144 H Calcium 9.4 Phosphorus 2.4 L Magnesium 1.9 12/20/19 05:57 WBC RBC Hgb Hct MCV MCH MCHC RDW Std Deviation RDW Coeff of Ana Plt Count MPV Immature Gran % (Auto) Neut % (Auto) Lymph % (Auto) [place] % (Auto) Eos % (Auto) Baso % (Auto) Immature Gran # (Auto) Neut # (Auto) Lymph # (Auto) [place] # (Auto) Eos # (Auto) Baso # (Auto) Sodium Potassium Chloride Carbon Dioxide Anion Gap BUN Creatinine Est Cr Clr Drug Dosing Est GFR ( Amer) Est GFR (Non-Af Amer) BUN/Creatinine Ratio Glucose POC Glucose 107 H Calcium Phosphorus Magnesium Diagnostic Findings CT ABDOMEN AND PELVIS WITH IV AND ORAL CONTRAST IMPRESSION: 1. Focal narrowing/complete decompression within the mid sigmoid colon along a 9 cm length. The remaining colon proximal to this is moderately distended and filled with gas and stool. This measures up to 8.6 cm. No obstructing lesion identified by CT. Findings favor an ileus. A large bowel obstruction due to an adhesion could also a similar appearance. 2. Additional findings as described above. Medications Administered Current Inpatient Medications Albuterol (Ventolin 0.5% 2.5mg/0.5ml) 2.5 mg NEB Q4H PRN PRN Reason: wheeze Stop: 01/15/20 19:37 Last Admin: 12/20/19 04:15 Dose: 2.5 mg Documented by: Dextrose (Dextrose 50%) 25 - 50 ml IV UD PRN; Protocol PRN Reason: Hypoglycemia Protocol Stop: 01/15/20 19:37 Enoxaparin Sodium (Lovenox) 40 mg SQ Q24H [facility] Stop: 01/15/20 20:59 Last Admin: 12/19/19 21:42 Dose: 40 mg Documented by: Famotidine (Pepcid) 40 mg PO QAM YAN Stop: 01/17/20 10:36 Last Admin: 12/19/19 08:54 Dose: 40 mg Documented by: Glucagon (Glucagen) 1 mg SQ UD PRN; Protocol PRN Reason: Hypoglycemia Protocol Stop: 01/15/20 19:37 Glucose (Dex4 Glucose) 4 - 8 tabs PO UD PRN; Protocol PRN Reason: Hypoglycemia Protocol Stop: 01/15/20 19:37 Glucose (Glucose 40%) 15 - 30 gm PO UD PRN; Protocol PRN Reason: Hypoglycemia Protocol Stop: 01/15/20 19:37 Heparin Sodium (Beef Lung) (Heparin Sod 10 Unit/Ml Flush) 5 ml FLUSH PRN PRN PRN Reason: Flush Stop: 01/16/20 23:32 Hydralazine HCl (Hydralazine Hcl) 10 mg IV Q6 PRN PRN Reason: Blood Pressure - High Stop: 01/18/20 10:26 Last Admin: 12/19/19 18:05 Dose: 10 mg Documented by: Potassium Chloride (K Myron / Wtr) 10 meq in 100 mls @ 100 mls/hr IV Q1H YAN Stop: 12/20/19 10:59 Insulin Aspart (Novolog Flexpen) 0 units SC Q6 YAN; Protocol Stop: 01/19/20 00:00 Last Admin: 12/20/19 06:00 Dose: Not Given Documented by: Lactulose (Chronulac) 20 gm PO TID YAN Stop: 01/18/20 13:59 Last Admin: 12/19/19 21:15 Dose: Not Given Documented by: Levofloxacin (Levaquin) 750 mg PO Q24H YAN Stop: 12/22/19 14:01 Last Admin: 12/19/19 14:03 Dose: 750 mg Documented by: Miscellaneous (Carbohydrates For Hypoglycemia) 15 - 30 gm PO UD PRN PRN Reason: Hypoglycemia Protocol Stop: 01/15/20 19:37 Miscellaneous Information (Consult Glycemic Management Pharmacy) 1 ea N/A UD PRN; Protocol PRN Reason: Consult Stop: 01/15/20 19:56 Prednisone (Prednisone) 40 mg PO DAILY YAN Stop: 12/21/19 09:01 Last Admin: 12/19/19 08:54 Dose: 40 mg Documented by: Simethicone (Mylicon) 80 mg PO Q6H PRN PRN Reason: Gas or Constipation Stop: 01/17/20 13:26 Last Admin: 12/19/19 07:49 Dose: 80 mg Documented by: PG Care Time/CCT Total # of Minutes Spent Total Time Spent: 40 Total Time Spent with Patient: Total time spent is greater than 50% in coordination of care (as documented) at patient's floor/unit and/or counseling patient: visited patient three times, spoke with Dr. Noel twice, reviewed CT scan Coding Level of Care Code 18176 Subseq Hosp Care Lvl 3 Diagnoses Constipation K59.00 Acute and chronic respiratory failure J96.20 Type 2 diabetes mellitus E11.9 Diastolic dysfunction I51.89 Coronary artery disease I25.10 COPD (chronic obstructive pulmonary disease) J44.9 COPD type: unspecified COPD Pneumonia J18.9 Laterality: unspecified laterality Lung location: unspecified part of lung Pneumonia type: due to unspecified organism (1) COPD (chronic obstructive pulmonary disease) COPD type: unspecified COPD Qualified Code(s): J44.9 - Chronic obstructive pulmonary disease, unspecified (2) Pneumonia Laterality: unspecified laterality Lung location: unspecified part of lung Pneumonia type: due to unspecified organism Qualified Code(s): J18.9 - Pneumonia, unspecified organism
[2019-12-20] MEDS: LACTULOSE SYRUP 20 GM/30 ML UDC PO SCH (09:19)
[2019-12-20] MEDS: predniSONE 20 MG TAB PO SCH (09:20)
[2019-12-20] MEDS: FAMOTIDINE 40 MG TABLET PO SCH (09:20)
[2019-12-20] MEDS ORDERED: Nursing to Pharmacy Communication ONE (09:22)
--- NOTE | 2019-12-20 10:09 | Pharmacy Report ---
Pharmacy Glycemic Short Note 2 - Date of Service December 20, 2019 - Glycemic Short BSG Results (Last 24 hours): 12/19/19 12/19/19 12/19/19 12:12 17:03 21:07 Glucose POC Glucose 95 131 H 146 H 12/20/19 12/20/19 12/20/19 00:03 05:18 05:57 Glucose 111 H POC Glucose 144 H 107 H 12/20/19 09:01 Glucose POC Glucose 94 OUTPATIENT ANTIDIABETIC REGIMEN: * metformin 500mg ER BID * A1C: 6% 12/17/19 ASSESSMENT: * Steroids tapered from Solu-medrol 60 mg IV q12h to prednisone 40 mg PO daily * NPH 30 units (0.4 units/kg based on adjusted body weight) given yesterday and worked well * BSGs ranging 95-144 mg/dL yesterday * Patient received 37 units of insulin (30 units of NPH and 7 units of correctional/prandial * Patient made NPO last evening - diet reordered this morning, but patient did not eat much * Fasting BSG this morning of 106 mg/dL * Will hold off on NPH for today given limited appetite PLAN FOR INPATIENT GLYCEMIC CONTROL: * Hold outpatient oral diabetes medications * Basal insulin * Hold NPH for now * Bolus insulin - continue * NovoLog per scale ACHS or Q6hrs while NPO * Goal Range: Low 120 mg/dL - High 160 mg/dL * Correction Factor: 20 mg/dL/unit * Nutritional / Prandial insulin per carb ratio of 1 unit per 7 grams CHO consumed DISCHARGE PLAN: * Inpatient hyperglycemia most certainly attributed to steroids * A1c of 6% demonstrates good glycemic control - if not discharged with steroids, then patient can likely be discharged on current regimen of metform in 500 mg PO ER BID * If discharged with steroids - may consider once daily NPH or glipizide given with PO steroid (doses to be determined)
[2019-12-20] MEDS: POTASSIUM CHLORIDE / WTR 10 MEQ/100 ML PLCT IV SCH ×2 (10:27→11:41)
[2019-12-20] MEDS: BACLOFEN 10 MG TAB PO PRN (10:34)
[2019-12-20] MEDS ORDERED: OPTIRAY 320 125ml IV PRN (12:24)
--- NOTE | 2019-12-20 13:14 | CT Scan Report ---
ABDOMEN AND PELVIS CT WITH IV AND ORAL CONTRAST CT DOSE: 1925.15 mGy.cm HISTORY: Colonic distension, possible obstruction TECHNIQUE: Multiaxial CT images of the abdomen and pelvis were performed following the use of intrave nous and oral contrast. A dose lowering technique was utilized adhering to the principles of ALARA. COMPARISON STUDY: Abdominal CT 05/01/2012. FINDINGS: Partially visualized densities within the right lung. These favor scarring. No pneumoperito neum. No pneumatosis. No suspicious lytic or blastic osseous lesions. No change in the 2.5 cm hypoden se lesion within the right hepatic lobe. This is likely benign given the long-term stability. Hepatic steatosis. Cholecystectomy. The spleen, adrenal glands, and pancreas are unremarkable. Bilateral cor tical renal thinning and multifocal scarring within the left kidney. This remains unchanged. Subcenti meter hypodense lesion within the left kidney is also stable. No hydronephrosis. No retroperitoneal l ymphadenopathy. Moderate calcified plaque within the normal caliber abdominal aorta. Punctate focus o f gas within the bladder lumen. Tiny fat-containing bilateral inguinal hernias. Lobular contour to th e uterine fundus suggestive of a fibroid. This measures 2.2 cm. Small hiatus hernia. No dilated loops of small bowel identified. Normal appendix. Focal narrowing/complete decompression within the mid si gmoid colon along a 9 cm length. The remaining colon proximal to this is moderately distended and michel led with gas and stool. This measures up to 8.6 cm. No obstructing lesion identified by CT. Findings favor an ileus. A large bowel obstruction due to an adhesion could also a similar appearance. IMPRESSION: 1. Focal narrowing/complete decompression within the mid sigmoid colon along a 9 cm length. The therese ining colon proximal to this is moderately distended and filled with gas and stool. This measures up to 8.6 cm. No obstructing lesion identified by CT. Findings favor an ileus. A large bowel obstruction due to an adhesion could also a similar appearance. 2. Additional findings as described above. ACT 112: Negative or not required by law. Electronically signed by: Homar Scott M.D. 12/20/2019 1:12 PM
[2019-12-20] MEDS: levoFLOXacin 750 MG TAB PO SCH (14:04)
[2019-12-20] MEDS: POLYETHYLENE (MIRALAX) 17 GM PACK PO SCH (20:05)
[2019-12-20] MEDS: DOCUSATE SODIUM SYRUP 100 MG/10 ML UDC PO SCH (20:05)
[2019-12-20] MEDS: ENOXAPARIN INJ 40 MG/0.4 ML SYR SQ SCH (20:05)
[2019-12-21] MEDS: ALBUTEROL 0.5% NEB SOLN 2.5 MG/0.5 ML VIAL NEB PRN ×4 (03:41→21:08)
[2019-12-21] MEDS: predniSONE 20 MG TAB PO SCH (08:45)
[2019-12-21] MEDS: POLYETHYLENE (MIRALAX) 17 GM PACK PO SCH ×2 (08:45→20:28)
[2019-12-21] MEDS: FAMOTIDINE 40 MG TABLET PO SCH (08:46)
[2019-12-21] MEDS: INSULIN ASPART 100 UNITS/ML 3 ML PEN SC SCH ×4 (08:51→21:13)
[2019-12-21] MEDS: SIMETHICONE 80 MG CHEW PO PRN (09:01)
[2019-12-21] MEDS: DOCUSATE SODIUM SYRUP 100 MG/10 ML UDC PO SCH (10:12)
[2019-12-21] MEDS: DOCUSATE SODIUM 100 MG CAP PO SCH ×2 (10:45→20:28)
[2019-12-21] MEDS: BACLOFEN 10 MG TAB PO PRN ×2 (10:51→18:22)
--- NOTE | 2019-12-21 13:11 | Hospitalist Progress Note ---
Date of Service December 21, 2019 Assessment & Plan (1) Constipation: abdomen distended, not passing gas has a good appetite, no nausea CT abdomen/pelvis on 12/19 with 9cm segment of sigmoid colon that is collapsed, represents colonic ileus d/w GI, this will resolve, just takes time continue Miralax BID and colace BID continue liquid diet, encourage activity but patient very sluggish, not motivated to move no enemas as this would increase risk of bowel perforation less distension and pain today but not resolved, patient frustrated again, told her that this could take a few days to resolve (2) Acute and chronic respiratory failure: Patient with acute on chronic respiratory failure marked improvement over 5 days, titrated down to 4L NC (says she wears 6L at home) COPD exacerbation, likely caused by pneumonia change Solu Medrol to Prednisone 40mg daily, completed 7 days, no further steroids continue antibiotics for pneumonia, discontinue Ceftaroline, continue Levaquin for 7 days total treatment WBC coming down to 8k yesterday, no fever influenza negative, Biofire negative, COVID 19 sent cancelled appreciate management per model dresser transfer to medical floor on 12/17 (3) Type 2 diabetes mellitus: no hyperglycemic episodes today diabetic diet continue Novolog SS monitor for any hypoglycemia, no episodes today (4) Diastolic dysfunction: Patient does not have any evidence of acute CHF at this time. continue Lasix 40mg PO daily making good amount of urine via voley will keep abdullahi for now to keep bladder drained to help with moving bowels (5) Coronary artery disease: continue home medications, no evidence of ACS no chest pain or pressure (6) COPD (chronic obstructive pulmonary disease): as above (7) Pneumonia: as above treat with Levaquin, WBC down to 8k, no fever will need 7 days total therapy Admission and Anticipated Discharge Date Admission Date: December 16, 2019 Subjective patient sitting up in her chair she had a liquid BM last night, almost incontinent of stool, still not passing gas her abdomen feels less distended discussed that the colonic ileus could take a few days to resolve her breathing is fine, only issues is that she has a hard time taking a deep breath with her abdomen distended no fever/chills, minimal cough, no chest pain/pressure no labs today Review of Systems Review of Systems: All systems reviewed & are unremarkable except as noted in HPI & below Constitutional: + weakness; no fever, no chills, no sweats and no fatigue Respiratory: + dyspnea on exertion; no cough and no dyspnea Cardiovascular: no chest pain and no edema Gastrointestinal: + bloating, + constipation and + diarrhea/loose stools; no abdominal pain, no nausea and no vomiting Physical Exam Constitutional: WD/WN, vitals as above + overweight; no acute distress Eyes: PERRL, conjunctivae normal, anicteric sclerae ENMT: external ear and nose normal, oropharynx normal Neck: trachea midline, no thyromegaly Respiratory: normal respiratory effort; no respiratory distress Auscultation: + diminished lung sounds; no rales, no rhonchi and no wheezes Cardiovascular: Rate/Rhythm: regular rhythm and + tachycardic Heart Sounds: normal S1 and normal S2; no murmur Extremities: normal capillary refill; no edema Gastrointestinal (Abdomen): Inspection/Auscultation: + abdomen distended and + hypoactive bowel sounds Percussion/Palpation: abdomen nontender, no guarding, abdomen not rigid, + abdomen not soft and no hernia Musculoskeletal: no cyanosis or clubbing, extremities motor strength 5/5 Skin: no rashes, warm and dry Neurologic: patellar DTR's 2+ bilat, sensation intact and PERRL, EOMI, accommodation nl, no face palsy, no dysarthria Psychiatric: A+Ox3, euthymic affect Lymphatic: no cervical or axillary lymphadenopathy Results & Data ([facility]) Vital Signs (Past 12 Hours) Vital Signs Temp Pulse Resp BP Pulse Ox 12/21/19 09:04 104 H 18 98 12/21/19 07:52 36.9 C 105 H 18 173/67 H 94 12/21/19 03:42 102 H 18 96 Medications Administered Current Inpatient Medications Albuterol (Ventolin 0.5% 2.5mg/0.5ml) 2.5 mg NEB Q4H PRN PRN Reason: wheeze Stop: 01/15/20 19:37 Last Admin: 12/21/19 08:57 Dose: 2.5 mg Documented by: Baclofen (Lioresal) 10 mg PO TID PRN PRN Reason: Muscle Spasm Stop: 01/19/20 13:59 Last Admin: 12/21/19 10:51 Dose: 10 mg Documented by: Dextrose (Dextrose 50%) 25 - 50 ml IV UD PRN; Protocol PRN Reason: Hypoglycemia Protocol Stop: 01/15/20 19:37 Docusate Sodium (Colace) 100 mg PO BID [facility] Stop: 01/20/20 10:14 Last Admin: 12/21/19 10:45 Dose: 100 mg Documented by: Enoxaparin Sodium (Lovenox) 40 mg SQ Q24H [facility] Stop: 01/15/20 20:59 Last Admin: 12/20/19 20:05 Dose: 40 mg Documented by: Famotidine (Pepcid) 40 mg PO QAM [facility] Stop: 01/17/20 10:36 Last Admin: 12/21/19 08:46 Dose: 40 mg Documented by: Glucagon (Glucagen) 1 mg SQ UD PRN; Protocol PRN Reason: Hypoglycemia Protocol Stop: 01/15/20 19:37 Glucose (Dex4 Glucose) 4 - 8 tabs PO UD PRN; Protocol PRN Reason: Hypoglycemia Protocol Stop: 01/15/20 19:37 Glucose (Glucose 40%) 15 - 30 gm PO UD PRN; Protocol PRN Reason: Hypoglycemia Protocol Stop: 01/15/20 19:37 Heparin Sodium (Beef Lung) (Heparin Sod 10 Unit/Ml Flush) 5 ml FLUSH PRN PRN PRN Reason: Flush Stop: 01/16/20 23:32 Hydralazine HCl (Hydralazine Hcl) 10 mg IV Q6 PRN PRN Reason: Blood Pressure - High Stop: 01/18/20 10:26 Last Admin: 12/19/19 18:05 Dose: 10 mg Documented by: Insulin Aspart (Novolog Flexpen) 0 units SC [facility]; Protocol Stop: 01/19/20 00:00 Last Admin: 12/21/19 12:39 Dose: 3 units Documented by: Ioversol (Optiray 320 125ml) 118 ml IV ONCE PRN PRN Reason: Interaction Checking Stop: 12/24/19 12:23 Last Admin: 12/20/19 12:25 Dose: 118 ml Documented by: Levofloxacin (Levaquin) 750 mg PO Q24H [facility] Stop: 12/22/19 14:01 Last Admin: 12/20/19 14:04 Dose: 750 mg Documented by: Miscellaneous (Carbohydrates For Hypoglycemia) 15 - 30 gm PO UD PRN PRN Reason: Hypoglycemia Protocol Stop: 01/15/20 19:37 Miscellaneous Information (Consult Glycemic Management Pharmacy) 1 ea N/A UD PRN; Protocol PRN Reason: Consult Stop: 01/15/20 19:56 Polyethylene Glycol (Miralax Powder Packet) 17 gm PO BID [facility] Stop: 01/19/20 20:59 Last Admin: 12/21/19 08:45 Dose: 17 gm Documented by: Simethicone (Mylicon) 80 mg PO Q6H PRN PRN Reason: Gas or Constipation Stop: 01/17/20 13:26 Last Admin: 12/21/19 09:01 Dose: 80 mg Documented by: PG Care Time/CCT Total # of Minutes Spent Total Time Spent with Patient: Total time spent is greater than 50% in coordination of care (as documented) at patient's floor/unit and/or counseling patient: Coding Level of Care Code 00077 Subseq Hosp Care Lvl 2 Diagnoses Constipation K59.00 Acute and chronic respiratory failure J96.20 Type 2 diabetes mellitus E11.9 Diastolic dysfunction I51.89 Coronary artery disease I25.10 COPD (chronic obstructive pulmonary disease) J44.9 COPD type: unspecified COPD Pneumonia J18.9 Laterality: unspecified laterality Lung location: unspecified part of lung Pneumonia type: due to unspecified organism (1) COPD (chronic obstructive pulmonary disease) COPD type: unspecified COPD Qualified Code(s): J44.9 - Chronic obstructive pulmonary disease, unspecified (2) Pneumonia Laterality: unspecified laterality Lung location: unspecified part of lung Pneumonia type: due to unspecified organism Qualified Code(s): J18.9 - Pneumonia, unspecified organism
[2019-12-21] MEDS: levoFLOXacin 750 MG TAB PO SCH (13:42)
[2019-12-21] MEDS: HydrALAZINE HCL 20 MG/ML VIAL IV PRN (15:48)
[2019-12-21] MEDS: ENOXAPARIN INJ 40 MG/0.4 ML SYR SQ SCH (20:28)
[2019-12-22] MEDS: ALBUTEROL 0.5% NEB SOLN 2.5 MG/0.5 ML VIAL NEB PRN ×5 (02:41→21:46)
[2019-12-22] MEDS: DOCUSATE SODIUM 100 MG CAP PO SCH ×2 (08:29→21:14)
[2019-12-22] MEDS: FAMOTIDINE 40 MG TABLET PO SCH (08:29)
[2019-12-22] MEDS: POLYETHYLENE (MIRALAX) 17 GM PACK PO SCH ×2 (08:29→21:14)
[2019-12-22] MEDS: INSULIN ASPART 100 UNITS/ML 3 ML PEN SC SCH ×4 (08:31→21:23)
[2019-12-22] MEDS ORDERED: GLYCOPYRROLATE FORMOTEROL INH SCH (12:00)
[2019-12-22] MEDS: levoFLOXacin 750 MG TAB PO SCH (13:03)
--- NOTE | 2019-12-22 13:29 | Pharmacy Report ---
Pharmacy Glycemic Short Note 2 - Date of Service December 22, 2019 - Glycemic Short BSG Results (Last 24 hours): 12/21/19 12/21/19 12/22/19 17:06 20:25 08:06 POC Glucose 170 H 120 H 110 H 12/22/19 12:15 POC Glucose 108 H OUTPATIENT ANTIDIABETIC REGIMEN: * metformin 500mg ER BID * A1C: 6% 12/17/19 ASSESSMENT: 12/21/19 * Blood sugars ranging 108-170mg/dl over past 24 hours, 7 units of insulin used yesterday, all bolus. * Prednisone: last dose yesterday, will loosen CF/CR to prevent hypoglycemia. 12/20/19 * Steroids tapered from Solu-medrol 60 mg IV q12h to prednisone 40 mg PO daily * NPH 30 units (0.4 units/kg based on adjusted body weight) given yesterday and worked well * BSGs ranging 95-144 mg/dL yesterday * Patient received 37 units of insulin (30 units of NPH and 7 units of correctional/prandial * Patient made NPO last evening - diet reordered this morning, but patient did not eat much * Fasting BSG this morning of 106 mg/dL * Will hold off on NPH for today given limited appetite PLAN FOR INPATIENT GLYCEMIC CONTROL: * Hold outpatient oral diabetes medications * Bolus insulin * NovoLog per scale ACHS or Q6hrs while NPO * Goal Range: Low 120 mg/dL - High 160 mg/dL * LOOSEN: Correction Factor: 25 mg/dL/unit * LOOSEN: Nutritional / Prandial insulin per carb ratio of 1 unit per 9 grams CHO consumed DISCHARGE PLAN: * A1c 6%, blood sugars at goal, continue outpatient metformin.
--- NOTE | 2019-12-22 14:40 | Hospitalist Progress Note ---
Date of Service December 22, 2019 Assessment & Plan (1) Constipation: abdomen distended, not passing gas has a good appetite, no nausea CT abdomen/pelvis on 12/19 with 9cm segment of sigmoid colon that is collapsed, represents colonic ileus d/w Dr. Noel, this will resolve, just takes time continue Miralax BID and colace BID advance to regular diet today starting to pass some flatus and some liquid stools, not a lot but it is an improvement no enemas as this would increase risk of bowel perforation again, reminded patient that this could take a few more days to resolve, at least it is improving (2) Acute and chronic respiratory failure: Patient with acute on chronic respiratory failure marked improvement over past week, titrated down to 4L NC (says she wears 6L at home) COPD exacerbation, likely caused by pneumonia change Solu Medrol to Prednisone 40mg daily, completed 7 days, no further steroids continue antibiotics for pneumonia, discontinue Ceftaroline, continue Levaquin for 7 days total treatment WBC coming down to 8k on 12/19, no fever influenza negative, Biofire negative, COVID 19 cancelled appreciate management per plastic boat buffer transfer to medical floor on 12/17 (3) Type 2 diabetes mellitus: no hyperglycemic episodes diabetic diet continue Novolog SS monitor for any hypoglycemia, no episodes today (4) Diastolic dysfunction: Patient does not have any evidence of acute CHF at this time. continue Lasix 40mg PO daily making good amount of urine via voley will keep abdullahi for now to keep bladder drained to help with moving bowels (5) Coronary artery disease: continue home medications, no evidence of ACS no chest pain or pressure (6) COPD (chronic obstructive pulmonary disease): as above (7) Pneumonia: as above treat with Levaquin, WBC down to 8k on 12/19, no fever will need 7 days total therapy Admission and Anticipated Discharge Date Admission Date: December 16, 2019 Anticipated date of discharge: 12/25/19 Subjective patient pleased because she is passing some flatus and some loose stool abdomen is less distended, less tender she is tolerating liquid diet, will advance to diabetic diet she is turning from side to side in bed and getting OOB in chair, understands that moving more will help colon open up her breathing is stable, no cough, no sputum production no labs today she wants to be home by her birthday which is Monday, told her that I am hopeful, not certain Review of Systems Review of Systems: All systems reviewed & are unremarkable except as noted in HPI & below Gastrointestinal: + abdominal pain (mild), + bloating and + constipation (starting to open up, some flatus today); no nausea, no vomiting and no diarrhea/loose stools Physical Exam Constitutional: WD/WN, vitals as above + overweight; no acute distress Eyes: PERRL, conjunctivae normal, anicteric sclerae ENMT: external ear and nose normal, oropharynx normal Neck: trachea midline, no thyromegaly Respiratory: normal respiratory effort; no respiratory distress Auscultation: + diminished lung sounds; no rales, no rhonchi and no wheezes Cardiovascular: Rate/Rhythm: regular rhythm and + tachycardic Heart Sounds: normal S1 and normal S2; no murmur Extremities: normal capillary refill; no edema Gastrointestinal (Abdomen): Inspection/Auscultation: + abdomen distended and + hypoactive bowel sounds Percussion/Palpation: abdomen soft; abdomen nontender, no guarding, abdomen not rigid and no hernia Musculoskeletal: no cyanosis or clubbing, extremities motor strength 5/5 Skin: no rashes, warm and dry Neurologic: patellar DTR's 2+ bilat, sensation intact and PERRL, EOMI, accommodation nl, no face palsy, no dysarthria Psychiatric: A+Ox3, euthymic affect Lymphatic: no cervical or axillary lymphadenopathy Results & Data ([facility]) Vital Signs (Past 12 Hours) Vital Signs Temp Pulse Resp BP Pulse Ox 12/22/19 13:13 103 H 18 93 12/22/19 08:15 107 H 18 96 12/22/19 08:03 36.8 C 114 H 22 124/66 97 12/22/19 02:42 115 H 24 95 Laboratory Results Abnormal lab results 12/21/19 12/21/19 12/22/19 Range/Units 17:06 20:25 08:06 POC Glucose 170 H 120 H 110 H (70-99) mg/dl 12/22/19 Range/Units 12:15 POC Glucose 108 H (70-99) mg/dl Medications Administered Current Inpatient Medications Albuterol (Ventolin 0.5% 2.5mg/0.5ml) 2.5 mg NEB Q4H PRN PRN Reason: wheeze Stop: 01/15/20 19:37 Last Admin: 12/22/19 13:13 Dose: 2.5 mg Documented by: Baclofen (Lioresal) 10 mg PO TID PRN PRN Reason: Muscle Spasm Stop: 01/19/20 13:59 Last Admin: 12/21/19 18:22 Dose: 10 mg Documented by: Dextrose (Dextrose 50%) 25 - 50 ml IV UD PRN; Protocol PRN Reason: Hypoglycemia Protocol Stop: 01/15/20 19:37 Docusate Sodium (Colace) 100 mg PO BID [facility] Stop: 01/20/20 10:14 Last Admin: 12/22/19 08:29 Dose: 100 mg Documented by: Enoxaparin Sodium (Lovenox) 40 mg SQ Q24H [facility] Stop: 01/15/20 20:59 Last Admin: 12/21/19 20:28 Dose: 40 mg Documented by: Famotidine (Pepcid) 40 mg PO QAM [facility] Stop: 01/17/20 10:36 Last Admin: 12/22/19 08:29 Dose: 40 mg Documented by: Glucagon (Glucagen) 1 mg SQ UD PRN; Protocol PRN Reason: Hypoglycemia Protocol Stop: 01/15/20 19:37 Glucose (Dex4 Glucose) 4 - 8 tabs PO UD PRN; Protocol PRN Reason: Hypoglycemia Protocol Stop: 01/15/20 19:37 Glucose (Glucose 40%) 15 - 30 gm PO UD PRN; Protocol PRN Reason: Hypoglycemia Protocol Stop: 01/15/20 19:37 Heparin Sodium (Beef Lung) (Heparin Sod 10 Unit/Ml Flush) 5 ml FLUSH PRN PRN PRN Reason: Flush Stop: 01/16/20 23:32 Hydralazine HCl (Hydralazine Hcl) 10 mg IV Q6 PRN PRN Reason: Blood Pressure - High Stop: 01/18/20 10:26 Last Admin: 12/21/19 15:48 Dose: 10 mg Documented by: Insulin Aspart (Novolog Flexpen) 0 units SC [facility]; Protocol Stop: 01/19/20 00:00 Last Admin: 12/22/19 12:32 Dose: Not Given Documented by: Ioversol (Optiray 320 125ml) 118 ml IV ONCE PRN PRN Reason: Interaction Checking Stop: 12/24/19 12:23 Last Admin: 12/20/19 12:25 Dose: 118 ml Documented by: Miscellaneous (Carbohydrates For Hypoglycemia) 15 - 30 gm PO UD PRN PRN Reason: Hypoglycemia Protocol Stop: 01/15/20 19:37 Miscellaneous Information (Consult Glycemic Management Pharmacy) 1 ea N/A UD PRN; Protocol PRN Reason: Consult Stop: 01/15/20 19:56 Polyethylene Glycol (Miralax Powder Packet) 17 gm PO BID [facility] Stop: 01/19/20 20:59 Last Admin: 12/22/19 08:29 Dose: 17 gm Documented by: Simethicone (Mylicon) 80 mg PO Q6H PRN PRN Reason: Gas or Constipation Stop: 01/17/20 13:26 Last Admin: 12/21/19 09:01 Dose: 80 mg Documented by: Umeclidinium/Vilanterol (Anoro Ellipta 62.5/25 Mcg Inh) 1 puffs INH DAILY [facility] Stop: 01/22/20 08:59 PG Care Time/CCT Total # of Minutes Spent Total Time Spent with Patient: Total time spent is greater than 50% in coordination of care (as documented) at patient's floor/unit and/or counseling patient: Coding Level of Care Code 85202 Subseq Hosp Care Lvl 2 Diagnoses Constipation K59.00 Acute and chronic respiratory failure J96.20 Type 2 diabetes mellitus E11.9 Diastolic dysfunction I51.89 Coronary artery disease I25.10 COPD (chronic obstructive pulmonary disease) J44.9 COPD type: unspecified COPD Pneumonia J18.9 Laterality: unspecified laterality Lung location: unspecified part of lung Pneumonia type: due to unspecified organism (1) COPD (chronic obstructive pulmonary disease) COPD type: unspecified COPD Qualified Code(s): J44.9 - Chronic obstructive pulmonary disease, unspecified (2) Pneumonia Laterality: unspecified laterality Lung location: unspecified part of lung Pneumonia type: due to unspecified organism Qualified Code(s): J18.9 - Pneumonia, unspecified organism
[2019-12-22] MEDS: SIMETHICONE 80 MG CHEW PO PRN (19:01)
[2019-12-22] MEDS: ENOXAPARIN INJ 40 MG/0.4 ML SYR SQ SCH (21:14)
[2019-12-23] MEDS: ALBUTEROL 0.5% NEB SOLN 2.5 MG/0.5 ML VIAL NEB PRN ×4 (04:34→19:01)
[2019-12-23 05:11] LABS: Hematocrit (blood only) 38.6 % (37-47); Hemoglobin 12.3 g/dL (12.0-16.0); Mean Corpuscular Hemoglobin 28.4 pg (25-34); Mean Corpuscular Hgb Conc 31.9 g/dL (32-36); Mean Corpuscular Volume 89.1 fL (80-100); Mean Platelet Volume 9.6 fL (7.4-10.4); Platelet Count 180 K/uL (130-400); RDW Coefficient of Variation 14.3 % (11.5-14.5); Red Blood Count 4.33 M/uL (4.2-5.4); White Blood Count 9.07 K/uL (4.8-10.8)
[2019-12-23 05:38] LABS: BUN Creatinine Ratio 21.1 (10-20); Calcium 8.7 mg/dl (8.5-10.1); Creatinine Clr Calc Pharmacy 84.7 ml/min; Est GFR (African American) 87.6; Est GFR (Non-African American) 75.6; Potassium 3.2 mmol/L (3.5-5.1)
[2019-12-23] MEDS: UMECLIDINIUM/VILANTEROL 62.5/25MCG 7 PUFFS/INHALER INH SCH (07:13)
[2019-12-23] MEDS: INSULIN ASPART 100 UNITS/ML 3 ML PEN SC SCH ×3 (09:11→18:22)
[2019-12-23] MEDS: FAMOTIDINE 40 MG TABLET PO SCH (09:11)
[2019-12-23] MEDS: DOCUSATE SODIUM 100 MG CAP PO SCH ×2 (09:12→20:39)
[2019-12-23] MEDS: POLYETHYLENE (MIRALAX) 17 GM PACK PO SCH ×2 (09:12→19:57)
[2019-12-23] MEDS: BACLOFEN 10 MG TAB PO PRN ×2 (09:14→20:00)
--- NOTE | 2019-12-23 11:24 | Pharmacy Report ---
Pharmacy Glycemic Sign Off Nt - Date of Service December 23, 2019 - Assessment & Plan ASSESSMENT: * Pharmacy was consulted by Dr. Sena on 12/16/2019 for glycemic control and to write orders per [facility] inpatient glycemic control protocol. * Major changes made by pharmacy to antidiabetic regimen include: * Held outpatient oral DM medications * Started Basal-Bolus inpatient insulin regimen to account for steroid- induced hyperglycemia * Patient has been receiving/requiring ~ 5 units of bolus insulin per day for adequate glycemic control * BSGs ranging 96 - 170 mg/dl * Regimen has only required minor adjustments over the past 48hrs to achieve this level of control * Do not anticipate further changes in patient status that would quickly deteriorate glycemic control (i.e. patient to be NPO for upcoming procedure, steroids tapering, starting tube feedings, etc). * Please see recommendations for outpatient antidiabetic regimen below. PLAN FOR INPATIENT GLYCEMIC CONTROL: No changes needed to current regimen. * Continue NovoLog per scale ACHS/Q6hrs while NPO * Goal range = 120 - 160 mg/dl * CF = 25 mg/dl/unit * CR = 1 unit for ever 9 g CHO consumed * A1c added to discharge instructions to be communicated to PCP. * Pharmacy is signing off of glycemic consult and will no longer be making adjustments to inpatient regimen. Please feel free to re-consult if needed. Thank you. DISCHARGE RECOMMENDATIONS: * A1c 6% on 12/17/2019 * Goal A1c < 7% given age and comorbidities * Recommend resuming Metformin ER 1000 mg PO Daily upon discharge
--- NOTE | 2019-12-23 11:41 | Hospitalist Progress Note ---
Date of Service December 23, 2019 Assessment & Plan (1) Constipation: abdomen distended, not passing gas has a good appetite, no nausea CT abdomen/pelvis on 12/19 with 9cm segment of sigmoid colon that is collapsed, represents colonic ileus d/w Dr. Noel, this will resolve, just takes time continue Miralax BID and colace BID advance to regular diet today starting to pass some flatus and some liquid stools, not a lot but it is an improvement no enemas as this would increase risk of bowel perforation will consult GI as patient remains distended and not improving. Now refusing miralax. (2) Acute and chronic respiratory failure: Patient with acute on chronic respiratory failure marked improvement over past week, titrated down to 4L NC (says she wears 6L at home) COPD exacerbation, likely caused by pneumonia change Solu Medrol to Prednisone 40mg daily, completed 7 days, no further steroids continue antibiotics for pneumonia, discontinue Ceftaroline, continue Levaquin for 7 days total treatment WBC coming down to 8k on 12/19, no fever influenza negative, Biofire negative, COVID 19 cancelled appreciate management per locomotive crane operator helper transfer to medical floor on 12/17 (3) Type 2 diabetes mellitus: no hyperglycemic episodes diabetic diet continue Novolog SS monitor for any hypoglycemia, no episodes today (4) Diastolic dysfunction: Patient does not have any evidence of acute CHF at this time. continue Lasix 40mg PO daily making good amount of urine via voley will keep abdullahi for now to keep bladder drained to help with moving bowels (5) Coronary artery disease: continue home medications, no evidence of ACS no chest pain or pressure (6) COPD (chronic obstructive pulmonary disease): as above (7) Pneumonia: as above treat with Levaquin, WBC down to 8k on 12/19, no fever will need 7 days total therapy Admission and Anticipated Discharge Date Admission Date: December 16, 2019 Anticipated date of discharge: 12/25/19 Subjective Patient reports no BMs. Patient states her abdomen is very distended. Patient states she does not ambulate much at home. Review of Systems Review of Systems: All systems reviewed & are unremarkable except as noted in HPI & below Physical Exam Physical Exam: Constitutional: WD/WN, vitals as above + overweight; no acute distress Eyes: PERRL, conjunctivae normal, anicteric sclerae ENMT: external ear and nose normal, oropharynx normal Neck: trachea midline, no thyromegaly Respiratory: normal respiratory effort; no respiratory distress Auscultation: + diminished lung sounds; no rales, no rhonchi and no wheezes Cardiovascular: Rate/Rhythm: regular rhythm and + tachycardic Heart Sounds: normal S1 and normal S2; no murmur Extremities: normal capillary refill; no edema Gastrointestinal (Abdomen): Inspection/Auscultation: + abdomen distended and no bowel sounds Percussion/Palpation: abdomen soft; abdomen nontender, no guarding, abdomen not rigid and no hernia Musculoskeletal: no cyanosis or clubbing, extremities motor strength 5/5 Skin: no rashes, warm and dry Neurologic: patellar DTR's 2+ bilat, sensation intact and PERRL, EOMI, accommodation nl, no face palsy, no dysarthria Psychiatric: A+Ox3, euthymic affect Lymphatic: no cervical or axillary lymphadenopathy Results & Data ([facility]) Vital Signs (Past 12 Hours) Vital Signs Temp Pulse Resp BP Pulse Ox 12/23/19 08:40 118 H 20 95 12/23/19 07:22 36.9 C 93 H 16 141/70 H 99 12/23/19 04:35 100 H 20 96 PG Care Time/CCT Total # of Minutes Spent Total Time Spent with Patient: Total time spent is greater than 50% in coordination of care (as documented) at patient's floor/unit and/or counseling patient: Coding Level of Care Code 24752 Subseq Hosp Care Lvl 3 Diagnoses Constipation K59.00 Acute and chronic respiratory failure J96.20 Type 2 diabetes mellitus E11.9 Diastolic dysfunction I51.89 Coronary artery disease I25.10 COPD (chronic obstructive pulmonary disease) J44.9 COPD type: unspecified COPD Pneumonia J18.9 Laterality: unspecified laterality Lung location: unspecified part of lung Pneumonia type: due to unspecified organism Time Spent (min) 35 Comment included chart review (1) COPD (chronic obstructive pulmonary disease) COPD type: unspecified COPD Qualified Code(s): J44.9 - Chronic obstructive pulmonary disease, unspecified (2) Pneumonia Laterality: unspecified laterality Lung location: unspecified part of lung Pneumonia type: due to unspecified organism Qualified Code(s): J18.9 - Pneumonia, unspecified organism
[2019-12-23] MEDS ORDERED: POTASSIUM CHLORIDE / WTR 10 MEQ/100 ML PLCT IV SCH (12:00)
[2019-12-23] MEDS ORDERED: POTASSIUM CHLORIDE 20 MEQ TABCR PO STA (12:13)
[2019-12-23] MEDS: FUROSEMIDE 20 MG in SYRINGE 0 ML IV ONE ×2 (13:20→13:40)
[2019-12-23] MEDS: POTASSIUM CHLORIDE 10 MEQ TABCR PO SCH ×2 (15:13→20:39)
--- NOTE | 2019-12-23 16:52 | Consultation Report ---
DATE OF CONSULTATION: 12/23/2019 GASTROINTESTINAL CONSULTATION REASON FOR CONSULTATION: Abdominal distention and possible sigmoid stricture. HISTORY OF PRESENT ILLNESS: The patient is a 63-year-old obese woman with chronic COPD who presented on 12/15 with respiratory failure and confusion. The patient was initially admitted to the intensive care unit and has gradually improved enough that she is now on a regular bed. Her abdomen has become quite distended over her hospital stay and a CT scan was performed that showed abdominal distention and a possible narrowing over about 9 cm in the sigmoid area. There was no obvious mass associated with this. She has never had a colonoscopy and refuses to have a colonoscopy even now. She did have a bowel movement today after going 2 days without a bowel movement and she said it was explosive and she felt somewhat better, although she is still distended. She did not look in the toilet to see if there was any solid component to the bowel movement or whether it was just loose liquid and gas. PAST MEDICAL HISTORY: Remarkable for COPD, coronary artery disease, renal insufficiency, gastroesophageal reflux. She has had an umbilical hernia repair, elevated lipids, lymphedema, obesity hypoventilation syndrome with obstructive sleep apnea, osteoporosis, type 2 diabetes, vitamin D deficiency. She has had a cholecystectomy and an umbilical hernia repair. FAMILY HISTORY: Remarkable for a sister with breast and colon cancer. SOCIAL HISTORY: The patient is , lives with family. Does not smoke currently and no alcohol. REVIEW OF SYSTEMS: Currently negative except for some distention. PHYSICAL EXAMINATION: GENERAL: The patient is morbidly obese, but in no acute distress. ABDOMEN: Markedly distended and tympanitic. There is an umbilical scar. There is not really any tenderness in her abdomen. No internal organs are able to be palpated due to the obesity. IMPRESSION AND PLAN: The patient has a narrowing in her sigmoid on CT scan and significant abdominal distention. It is not clear whether the narrowing in the sigmoid is an imaging artifact or whether there is a true narrowing there. The patient is adamantly opposed to having any kind of endoscopic intervention. I was able to convince her to get a Gastrografin enema to just image that area on a limited basis just looking at the left side of the colon and I will order that test to see if we can define a little better what is happening in that region.
[2019-12-23] MEDS: ENOXAPARIN INJ 40 MG/0.4 ML SYR SQ SCH (20:40)
[2019-12-23] MEDS: SIMETHICONE 80 MG CHEW PO PRN (20:44)
[2019-12-24] MEDS: INSULIN ASPART 100 UNITS/ML 3 ML PEN SC SCH ×5 (00:01→20:50)
[2019-12-24] MEDS: ALBUTEROL 0.5% NEB SOLN 2.5 MG/0.5 ML VIAL NEB PRN ×6 (00:24→22:17)
[2019-12-24] MEDS ORDERED: SODIUM CHLORIDE 0.9% 1000ML 1,000 ML IV SCH (00:45)
[2019-12-24] MEDS ORDERED: D5W AND NSS 1,000 ML IV SCH (01:00)
[2019-12-24] MEDS: UMECLIDINIUM/VILANTEROL 62.5/25MCG 7 PUFFS/INHALER INH SCH (10:47)
[2019-12-24] MEDS: FAMOTIDINE 40 MG TABLET PO SCH (10:48)
[2019-12-24] MEDS: POTASSIUM CHLORIDE 10 MEQ TABCR PO SCH ×3 (10:48→20:48)
[2019-12-24] MEDS: DOCUSATE SODIUM 100 MG CAP PO SCH ×2 (10:48→20:48)
[2019-12-24] MEDS: POLYETHYLENE (MIRALAX) 17 GM PACK PO SCH ×2 (10:49→20:48)
[2019-12-24] MEDS: BACLOFEN 10 MG TAB PO PRN ×2 (10:54→20:51)
[2019-12-24 13:11] LABS: Hematocrit (blood only) 42.5 % (37-47); Hemoglobin 13.1 g/dL (12.0-16.0); Mean Corpuscular Hemoglobin 28.2 pg (25-34); Mean Corpuscular Hgb Conc 30.8 g/dL (32-36); Mean Corpuscular Volume 91.4 fL (80-100); Platelet Count 202 K/uL (130-400); RDW Coefficient of Variation 14.7 % (11.5-14.5); RDW Standard Deviation 49.3 fL (36.4-46.3); Red Blood Count 4.65 M/uL (4.2-5.4); White Blood Count 13.49 K/uL (4.8-10.8)
[2019-12-24 13:40] LABS: BUN Creatinine Ratio 15.9 (10-20); Calcium 8.8 mg/dl (8.5-10.1); Creatinine Clr Calc Pharmacy 73.9 ml/min; Est GFR (African American) 74.3; Est GFR (Non-African American) 64.1
[2019-12-24] MEDS ORDERED: Nursing to Pharmacy Communication ONE (15:17)
--- NOTE | 2019-12-24 15:29 | Gastroenterology Progress Note ---
Date of Service December 24, 2019 Assessment & Plan (1) Distended abdomen: Pt clinically feels better. She is refusing gastrograffin enema. I am concerned about doing colonosocpy and causing proximal colon perforation from trapped gas. At this point since she is moving her bowels and feels better then trial of clears. Check KUB in am. Admission and Anticipated Discharge Date Admission Date: December 16, 2019 Anticipated date of discharge: 12/25/19 Subjective cc f/u abd distension HPI NO abd pain. Two stools today. Pt feels like her abdomen is better.--less distended. She is refusing gastrograffin enema, citiing back experience many years ago. Physical Exam Constitutional: WD/WN, vitals as above Respiratory: normal respiratory effort, lungs clear to auscultation Cardiovascular: RRR, no murmur, no edema Gastrointestinal (Abdomen): abdomen moderate distension, tympanitic, no guarding nor rebound. Results & Data ([facility]) Vital Signs (Past 12 Hours) Vital Signs Temp Pulse Pulse Resp BP Pulse Ox 12/24/19 13:07 106 H 18 93 12/24/19 08:39 102 H 20 97 12/24/19 07:37 36.8 C 84 18 144/77 H 98 12/24/19 04:53 99 H 18 97
[2019-12-24] MEDS: ENOXAPARIN INJ 40 MG/0.4 ML SYR SQ SCH (20:49)
--- NOTE | 2019-12-24 22:32 | Hospitalist Progress Note ---
Date of Service December 24, 2019 Assessment & Plan (1) Constipation: abdomen less distended, 2 large BM will continue NPO Await further input from GI may consider starting to clear liquid diet patient is refusing any further workup at this time. CT abdomen/pelvis on 12/19 with 9cm segment of sigmoid colon that is collapsed, represents colonic ileus continue Miralax BID and colace BID starting to pass some flatus and some liquid stools, not a lot but it is an improvement no enemas as this would increase risk of bowel perforation (2) Acute and chronic respiratory failure: Patient with acute on chronic respiratory failure marked improvement over past week, titrated down to 4L NC (says she wears 6L at home) COPD exacerbation, likely caused by pneumonia change Solu Medrol to Prednisone 40mg daily, completed 7 days, no further steroids continue antibiotics for pneumonia, discontinue Ceftaroline, continue Levaquin for 7 days total treatment WBC coming down to 8k on 12/19, no fever influenza negative, Biofire negative, COVID 19 cancelled appreciate 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 continue Lasix 40mg PO daily making good amount of urine via voley will keep abdullahi for now to keep bladder drained to help with moving bowels (5) Coronary artery disease: continue home medications, no evidence of ACS no chest pain or pressure (6) COPD (chronic obstructive pulmonary disease): as above (7) Pneumonia: as above treat with Levaquin, WBC down to 8k on 12/19, no fever will need 7 days total therapy Admission and Anticipated Discharge Date Admission Date: December 16, 2019 Anticipated date of discharge: 12/25/19 Subjective Patient is a pleasant 63 yo female. She reports feeling well. She states she has had 2 large Bowel movements and she has been passing gas as well. Review of Systems Review of Systems: All systems reviewed & are unremarkable except as noted in HPI & below Physical Exam Physical Exam: Constitutional: WD/WN, vitals as above + overweight; no acute distress Eyes: PERRL, conjunctivae normal, anicteric sclerae ENMT: external ear and nose normal, oropharynx normal Neck: trachea midline, no thyromegaly Respiratory: normal respiratory effort; no respiratory distress Auscultation: + diminished lung sounds; no rales, no rhonchi and no wheezes Cardiovascular: Rate/Rhythm: regular rhythm and + tachycardic Heart Sounds: normal S1 and normal S2; no murmur Extremities: normal capillary refill; no edema Gastrointestinal (Abdomen): Inspection/Auscultation: + abdomen distended and no bowel sounds Percussion/Palpation: abdomen soft; abdomen nontender, no guarding, abdomen not rigid and no hernia Musculoskeletal: no cyanosis or clubbing, extremities motor strength 5/5 Skin: no rashes, warm and dry Neurologic: patellar DTR's 2+ bilat, sensation intact and PERRL, EOMI, accommodation nl, no face palsy, no dysarthria Psychiatric: A+Ox3, euthymic affect Lymphatic: no cervical or axillary lymphadenopathy Results & Data ([facility]) Vital Signs (Past 12 Hours) Vital Signs Temp Pulse Resp BP Pulse Ox 12/24/19 22:17 104 H 16 94 12/24/19 17:43 100 H 20 94 12/24/19 15:29 36.3 C L 100 H 18 126/72 97 12/24/19 13:07 106 H 18 93 PG Care Time/CCT Total # of Minutes Spent Total Time Spent with Patient: Total time spent is greater than 50% in coordination of care (as documented) at patient's floor/unit and/or counseling patient: Coding Level of Care Code 76749 Subseq Hosp Care Lvl 2 Diagnoses Constipation K59.00 Acute and chronic respiratory failure J96.20 Type 2 diabetes mellitus E11.9 Diastolic dysfunction I51.89 Coronary artery disease I25.10 COPD (chronic obstructive pulmonary disease) J44.9 COPD type: unspecified COPD Pneumonia J18.9 Laterality: unspecified laterality Lung location: unspecified part of lung Pneumonia type: due to unspecified organism Time Spent (min) 25 (1) COPD (chronic obstructive pulmonary disease) COPD type: unspecified COPD Qualified Code(s): J44.9 - Chronic obstructive pulmonary disease, unspecified (2) Pneumonia Laterality: unspecified laterality Lung location: unspecified part of lung Pneumonia type: due to unspecified organism Qualified Code(s): J18.9 - Pneumonia, unspecified organism
[2019-12-25] MEDS: ALBUTEROL 0.5% NEB SOLN 2.5 MG/0.5 ML VIAL NEB PRN ×3 (06:26→14:03)
[2019-12-25] MEDS ORDERED: COUGH DROP (SUGAR FREE) LOZ 24 LOZ/1 BOX BUCCAL ONE (07:17)
[2019-12-25] MEDS: INSULIN ASPART 100 UNITS/ML 3 ML PEN SC SCH ×2 (08:08→12:40)
[2019-12-25] MEDS: FAMOTIDINE 40 MG TABLET PO SCH (08:40)
[2019-12-25] MEDS: POTASSIUM CHLORIDE 10 MEQ TABCR PO SCH ×2 (08:40→13:42)
[2019-12-25] MEDS: POLYETHYLENE (MIRALAX) 17 GM PACK PO SCH (08:40)
[2019-12-25] MEDS: UMECLIDINIUM/VILANTEROL 62.5/25MCG 7 PUFFS/INHALER INH SCH ×2 (08:41→08:48)
[2019-12-25] MEDS: DOCUSATE SODIUM 100 MG CAP PO SCH (08:41)
[2019-12-25] MEDS: BACLOFEN 10 MG TAB PO PRN (08:51)
--- NOTE | 2019-12-25 09:25 | XRay Report ---
PA CHEST WITH ABDOMINAL SERIES CLINICAL HISTORY: Colonic distention. FINDINGS: A PA chest radiograph is compared to study dated 12/18/2019. Correlation is made with chest CT dated . The examination is degraded by patient rotation. The heart is top normal for projection. E mphysema and chronic interstitial thickening are similar to previous. Enlargement of the central pulm onary arteries suggests pulmonary artery hypertension. There is bibasilar scarring/atelectasis. No ai rspace consolidation or large pleural effusion is identified. No pneumothorax is seen. The skeletal s tructures are osteopenic. The bony thorax is grossly intact. Supine and erect abdominal radiographs are compared to study dated 12/19/2019 and correlated with abdo malena CT dated 12/20/2019. Cholecystectomy clips are noted in the right upper quadrant. There is a non obstructed abdominal bowel gas pattern. Colonic distention has improved from previous. The rectosigmo id colon measures up to 6.3 cm in diameter. No evidence of intraperitoneal free air is seen. There ar e no abnormal abdominal calcifications. The lumbosacral spine and bony pelvis appear intact. Lumbosac ral spondylosis and scoliosis are observed. IMPRESSION: 1. Advanced emphysema with no acute cardiopulmonary abnormality. 2. Nonobstructed abdominal bowel gas pattern. Colonic distention has improved from 12/19/2019. ACT 112: Negative or not required by law. Electronically signed by: Lexa Mcgraw M.D. 12/25/2019 9:24 AM
--- NOTE | 2019-12-25 14:13 | Progress Notes ---
DATE: 12/25/2019 SUBJECTIVE: The patient has been having liquid bowel movements and passing flatus, and her abdominal x-ray from today shows that her ileus has resolved and the diameter of the colon in the rectosigmoid is measured at about 6.3 cm. There is no obvious stricture in that area. She is tolerating clear liquids. PHYSICAL EXAMINATION: The patient is morbidly obese with abdominal protuberance. Her vital signs are normal. She is afebrile. IMPRESSION: The patient's ileus appears to have resolved. I plan on advancing her diet to a regular diet. Please contact us if any further GI input is needed.
--- NOTE | 2019-12-31 23:02 | Discharge Summary ---
Date of Service December 25, 2019 Admission HPI Per Admitting Provider This is a 63-year-old female with past medical history of COPD, chronic respiratory failure on 5 L nasal cannula at home that presents today with confusion and acute hypoxia. Patient is altered and cannot provide any history. Patient's family member at bedside. She tells me that the patient has been having problems over the past 10 days. This initially manifested as a cough. She does note that the patient had m ultiple sick contacts including her niece and her son who subsequently tested positive for influenza A. Daughter tells me the patient started having confusion approximately 24 hours ago. She did seem to improve during the day but this morning was significantly altered and agitated. At that point she called the ambulance and patient was brought in by EMS. Patient apparently arrived at the hospital with BiPAP in place by EMS. Her blood pressure was low at 83/68. She remains tachycardic in the 1 teens to 120s, appears to be sinus tachycardia on monitor. Blood pressure is improved with fluids and treatment of her underlying hypoxia. I did discuss with the ER physician, plan is to admit the patient to the ICU. She is tested negative for influenza and bio fire will be ordered, consideration towards COVID-19 testing as well. Principal Diagnosis Pneumonia Discharge Exam Constitutional: WD/WN, vitals as above + overweight; no acute distress Eyes: PERRL, conjunctivae normal, anicteric sclerae ENMT: external ear and nose normal, oropharynx normal Neck: trachea midline, no thyromegaly Respiratory: normal respiratory effort; no respiratory distress Auscultation: + diminished lung sounds; no rales, no rhonchi and no wheezes Cardiovascular: Rate/Rhythm: regular rhythm and + tachycardic Heart Sounds: normal S1 and normal S2; no murmur Extremities: normal capillary refill; no edema Gastrointestinal (Abdomen): Inspection/Auscultation: + abdomen distended and no bowel sounds Percussion/Palpation: abdomen soft; abdomen nontender, no guarding, abdomen not rigid and no hernia Musculoskeletal: no cyanosis or clubbing, extremities motor strength 5/5 Skin: no rashes, warm and dry Neurologic: patellar DTR's 2+ bilat, sensation intact and PERRL, EOMI, accommodation nl, no face palsy, no dysarthria Psychiatric: A+Ox3, euthymic affect Lymphatic: no cervical or axillary lymphadenopathy Discharge Data Allergies Allergy/AdvReac Type Severity Reaction Status Date / Time codeine AdvReac Mild SHAKING Verified 12/30/19 09:28 oxycodone AdvReac Unknown rash/shakes Verified 12/30/19 09:28 Consultations 12/16/19 12:57 ED Decision to Admit Stat 12/16/19 19:38 Consult Case Management - Discharge Planning Routine Consult Dermatology Sales Representative Routine Consult Dermatology Sales Representative Routine 12/23/19 11:22 Consult Gastroenterology Routine Ordered Studies 12/20/19 12:15 CT abd pelvis oral and IV con Urgent Hospital Course (1) Constipation: abdomen less distended, 2 large BM will continue NPO Await further input from GI may consider starting to clear liquid diet patient is refusing any further workup at this time. CT abdomen/pelvis on 12/19 with 9cm segment of sigmoid colon that is collapsed, represents colonic ileus continue Miralax BID and colace BID On day of discharge this has resolved. will recommend to slowly advance diet at home. (2) Acute and chronic respiratory failure: Patient with acute on chronic respiratory failure marked improvement over past week, titrated down to 4L NC (says she wears 6L at home) COPD exacerbation, likely caused by pneumonia change Solu Medrol to Prednisone 40mg daily, completed 7 days, no further st eroids continue antibiotics for pneumonia, discontinue Ceftaroline, completed Levaquin for 7 days total treatment WBC coming down to 8k on 12/19, no fever influenza negative, Biofire negative, COVID 19 cancelled (3) Type 2 diabetes mellitus: no hyperglycemic episodes diabetic diet continue Novolog monitor for any hypoglycemia, no episodes today (4) Diastolic dysfunction: Patient does not have any evidence of acute CHF at this time. continue Lasix 40mg PO daily making good amount of urine via voley will keep abdullahi for now to keep bladder drained to help with moving bowels (5) Coronary artery disease: continue home medications, no evidence of ACS no chest pain or pressure (6) COPD (chronic obstructive pulmonary disease): as above (7) Pneumonia: as above treat with Levaquin, WBC down to 8k on 12/19, no fever completed 7 days total therapy Total Time Total Time Spent Total Time Spent (In Minutes): 35 Total Time Includes: Examination of the Patient, Discharge Planning and Medication Reconciliation Discharge Plan Discharge Items Patient Disposition: Home - Self-Care Reason For Visit: ACUTE RESP FAILURE Discharge Diagnosis: COPD Activity: Resume your previous activity Non-emergency contact: Primary Care Provider Call non-emergency contact if: you have any medication questions Follow-up/Referrals: Beatriz Baker DO [Primary Care Provider] - 12/30/19 9:20 am Diet: Clear liquid Addtl Attending Provider Instructions: You have been hospitalized for an acute medical problem. During your stay at [facility], we have made an effort to correct the problem that brought you to the hospital while keeping you as comfortable as possible. Medications were used to bring your condition under control and your discharge instructions will include directions for any medications you should take after leaving the hospital. Please make sure you see your Primary Care Provider as part of your follow up plan. Keep a clear liquid diet for 1-2 days Then start a ful liquid diet for 3-5 days Pending Studies at Discharge: No Stand-Alone Forms: My [facility], Smoking Cessation Medications and DC Order Prescriptions: Continued ergocalciferol (vitamin D2) 50,000 unit capsule 50,000 units PO WEEKLY Qty: 12 RF: 3 pantoprazole 40 mg tablet,delayed release (DR/EC) 40 mg PO DAILY Qty: 90 RF: 1 albuterol sulfate [Ventolin HFA] 90 mcg/actuation HFA aerosol inhaler 1 - 2 puffs INH Q6H PRN (Reason: shortness of breath or wheezing) Qty: 18 RF: 5 polyethylene glycol 3350 17 gram/dose powder 17 gm PO DAILY PRN (Reason: constipation) Qty: 255 RF: 2 (DME) BiPap Machine Misc See Rx Instructions .ROUTE .MEDSUPPLY Qty: 1 RF: 0 metformin 500 mg tablet extended release 24 hr 1,000 mg PO DAILY Qty: 180 RF: 1 pravastatin 80 mg tablet 80 mg PO DAILY Qty: 30 RF: 5 budesonide 0.5 mg/2 mL suspension for nebulization 0.5 mg inhalation BID Qty: 120 RF: 5 mupirocin 2 % ointment 1 appln topical BID Qty: 22 RF: 1 triamcinolone acetonide 0.1 % cream 1 applic TOPICAL BID Qty: 80 RF: 1 ipratropium bromide 0.02 % solution 2.5 ml INHALATION QID Qty: 62.5 RF: 5 Bevespi Aerosphere 9-4.8 mcg HFA aerosol inhaler 2 puff INHALATION AMPM Qty: 10.7 RF: 3 Hold Instructions: no samples, insurance coverage - trial stiolto tiotropium-olodaterol [Stiolto Respimat] 2.5-2.5 mcg/actuation mist 1 puff inhalation DAILY RF: 0 betamethasone dipropionate 0.05 % ointment 1 appln topical BID Qty: 1 RF: 0 (DME) Vortex Holding Chamber spacer See Dose Instructions .ROUTE .MEDSUPPLY Qty: 1 RF: 0 (DME) Oxygen Home Liters Per Minute See Dose Instructions .ROUTE .MEDSUPPLY Qty: 1 RF: 0 (DME) Oxygen Home Liters Per Minute See Dose Instructions .ROUTE .MEDSUPPLY Qty: 1 RF: 0 tramadol 50 mg tablet 50 mg PO Q8H PRN (Reason: pain) Qty: 30 RF: 0 albuterol sulfate 2.5 mg /3 mL (0.083 %) solution for nebulization 2.5 mg inhalation Q4H PRN (Reason: wheezing) Qty: 2 RF: 5 No Action docusate sodium 100 mg tablet 100 mg PO BID Qty: 60 RF: 5 baclofen 10 mg tablet See Rx Instructions PO TID PRN (Reason: Muscle Spasm) Qty: 90 RF: 1 furosemide 40 mg tablet 40 mg PO DAILY Qty: 90 RF: 1 Discharge Orders: Discharge Order (Routine); Ordered 12/25/19 Ordered By: Juan Paredes/Other Patient Handouts: COPD Diabetes, A1C Admission Data Admit Date/Time: 12/16/19 14:16 Attending Provider: Juan Thurman Admit Provider: Que Sena. Primary Care Provider: Beatriz Baker Other Providers: Mika Lee ; Jez Kelly Other Interventions: Discharge Summary Assessment (RN) Last Done: 12/25/19 14:33 DC Date/Time DO NOT enter until pt leaves facility: 12/25/19 15:56 Coding Level of Care Code D/C Day Management >30 mins Diagnoses Constipation K59.00 Acute and chronic respiratory failure J96.20 Type 2 diabetes mellitus E11.9 Diastolic dysfunction I51.89 Coronary artery disease I25.10 COPD (chronic obstructive pulmonary disease) J44.9 COPD type: unspecified COPD Pneumonia J18.9 Laterality: unspecified laterality Lung location: unspecified part of lung Pneumonia type: due to unspecified organism Time Spent (min) 35
== END 2019-12-25 15:56 | disposition home or self-care (01) | DRG 193 ==
LOC: ED 11:36 → 1E 14:16 → SUATTDRO 14:16 → 1E 18:20 → 3W 12-18 10:32

== ENCOUNTER 2020-01-06 19:58 | Inpatient (IN) ==
[2020-01-06] MEDS ORDERED: methylPREDNISolone 125 MG/2 ML VIAL IV STA (20:21)
[2020-01-06] MEDS ORDERED: ALBUTEROL 0.083% NEBU SOLN 3 ML VIAL NEB STA (20:21)
--- NOTE | 2020-01-06 20:29 | Emergency Department Note ---
Impression & Plan Pneumonia, Breath shortness, Weakness, Obesity hypoventilation syndrome ED Provider Note NAME: JASON MORILLO AGE: 64 SEX: F : 1955 ARRIVES VIA: Ambulance INFORMANT: Patient ED PROVIDER(S): Trino Bynum DO CHIEF COMPLAINT: Shortness of breath and weakness HPI: Patient is a 64-year-old female who is morbidly obese with a past medical history of COPD diastolic heart dysfunction CAD and respiratory failure that presents the ER for shortness of breath and weakness. Patient notes that she tried to walk to the bathroom when she came in significant shortness short of breath and desatted into the low 70s. She used her inhaler and increased her oxygen and her pulse ox would not come back up. This occurred just prior to arrival. She notes that she is too weak to get up or move around. Patient notes that she was recently admitted and discharged and treated for COPD exacerbation. Patient denies any new changes in medications. Denies any fevers. Does admit to yellow productive cough which has been significantly worse over the past 3 days. Denies any trips or travel. He lives at home. No exposure to anyone with coronavirus. ROS: See above HPI for pertinent positives & negatives. A total of 10 systems reviewed and were otherwise negative. PAST MEDICAL HISTORY:See Below PAST SURGICAL HISTORY:See Below FAMILY HISTORY:See Below SOCIAL HISTORY:See Below HOME MEDICATIONS:See Below ALLERGIES:See Below VITALS:See Below PHYSICAL EXAMINATION: GENERAL: Sitting up in bed, ill-appearing, dyspneic with conversation, on 6 L nasal cannula EYE EXAM: normal conjunctiva. OROPHARYNX: no exudate, no erythema, lips, buccal mucosa, and tongue normal and mucous membranes are moist NECK: supple, no nuchal rigidity, no adenopathy, non-tender LUNGS: Diminished bilaterally. Normal chest wall mechanics HEART: no murmurs, S1 normal and S2 normal ABDOMEN: abdomen soft, non-tender, normo-active bowel sounds, no masses, no rebound or guarding. BACK: Back is symmetrical on inspection and there is no deformity, no midline tenderness, no CVA tenderness. SKIN: no rashes and no bruising UPPER EXTREMITIES: upper extremities are grossly normal. LOWER EXTREMITIES: No pitting edema. Calves are equal bilateral NEURO EXAM: Normal sensorium, cranial nerves II-XII grossly intact, normal speech, no gross weakness of arms, no gross weakness of legs. MEDICAL DECISION MAKING: Patient is a 64-year-old female that presents the ER for shortness of breath, cough and diffuse weakness. She notes she went up to go to the bathroom and her pulse ox dropped into the 70s. She has been having yellow productive cough for the past several days. She denies any recorded fevers. She notes that she is too weak to walk at this time. She was brought in by EMS. Currently on 6 L nasal cannula. IV was established blood work was obtained shows no significant leukocytosis. Mild anemia 10.3 down from 12-13. INR was unremarkable. BMP with a slightly elevated CO2 which is consistent with previous. BUN is not elevated. LFTs magnesium and troponin was negative. Influenza was negative. No Covid testing on last admission although I favor this is extremely unlikely at this time as I do not think that she would be doing this well. Patient was given IV Levaquin and Rocephin. She was updated bedside. Chest x-ray does suggest more likely an infiltrate with her symptoms. She was updated bedside discussed with the hospitalist for admission. She was given several neb treatments and IV steroids while in the ER. Any recent travel or trips. She was recently admitted to our ICU. No exposure to anyone with coronavirus. Triage Nursing notes reviewed. Prior medical records reviewed Vital Signs: reviewed and remarkable for tachycardic Differential diagnosis: Differential diagnoses includes but is not limited to pneumonia, bronchitis, COPD/Asthma exacerbation, pneumothorax, pulmonary embolism, congestive heart failure, acute coronary syndrome ER treatment provided: See below Diagnostics interpreted by me: ECG: Sinus rhythm rate of 92 Normal axis Poor baseline in the inferior leads Septal Q waves No PVCs Cardiac Monitoring: Sinus tachycardia rate of 102 Laboratory studies: As stated above and show below. Imaging studies: Portable AP upright 1 view: Questionable focal infiltrate at the base. Consultation(s): Discussed with Dr. Harmeet Steward ED COURSE: Procedures: none Critical Care: None Past Med/Surg History Social History Preferred Language: [place] Communication Ability: Effective Refrigeration System Installer Required: No Beliefs That Will Affect Care: None marital status: Current Living Situation: Family Current Living Situation Comment: Lives with son and daughter in law. Feels Safe at Home: Yes Smoking Status: Former smoker Hx Alcohol Use: No Hx Substance Use: No Dental Care, Regularly: No Physical Activity Frequency: Does not Exercise Seatbelt Use: always Allergies Allergies Allergy/AdvReac Type Severity Reaction Status Date / Time codeine AdvReac Mild SHAKING Verified 12/30/19 09:28 oxycodone AdvReac Unknown rash/shakes Verified 12/30/19 09:28 Home Meds Home Medications Medication Instructions Recorded Confirmed betamethasone dipropionate 0.05 % 1 appln TOPICAL BID #1 gm 06/09/19 01/06/20 topical ointment tramadol 50 mg tablet 50 mg PO Q8H PRN #30 tab 06/09/19 01/06/20 baclofen 10 - 20 mg PO TID PRN 01/06/20 01/06/20 polyethylene glycol 3350 17 - 34 gm PO DAILY PRN 01/06/20 01/06/20 Previous Rx's Medication Instructions Recorded ergocalciferol (vitamin D2) 1,250 50,000 units PO WEEKLY #12 cap 05/29/19 mcg (50,000 unit) capsule pantoprazole 40 mg tablet,delayed 40 mg PO DAILY #90 tab 06/05/19 release albuterol sulfate 90 mcg/actuation 1 - 2 puffs INH Q6H PRN #18 gm 06/19/19 aerosol inhaler albuterol sulfate 2.5 mg INHALATION Q4H PRN #2 ml 09/10/19 metformin 500 mg tablet,extended 1,000 mg PO DAILY #180 tab 09/19/19 release 24 hr pravastatin 80 mg tablet 80 mg PO DAILY #30 tab 10/09/19 glycopyrrolate 9 mcg-formoterol 2 puff INHALATION AMPM #10.7 gm 10/14/19 4.8 mcg HFA aerosol inhaler budesonide 0.5 mg/2 mL suspension 0.5 mg INHALATION BID #120 ml 10/16/19 for nebulization mupirocin 2 % topical ointment 1 appln TOPICAL BID #22 gm 11/21/19 triamcinolone acetonide 0.1 % 1 applic TOPICAL BID #80 gm 11/21/19 topical cream ipratropium bromide 0.02 % 2.5 ml INHALATION QID #62.5 ml 12/19/19 solution for inhalation docusate sodium 100 mg tablet 100 mg PO BID #60 tab 12/30/19 furosemide 40 mg tablet 40 mg PO DAILY #90 tab 12/30/19 Results & Data (ED) Vital Signs Vital Signs - 24 hr 01/06/20 19:43 01/06/20 20:11 01/06/20 20:20 Temperature 36.9 C Temperature Source Oral Pulse Rate 94 H Pulse Rate [Right Radial] Pulse Rate from SpO2 Sensor Respiratory Rate 18 Respiratory Effort / Characteristics Labored Blood Pressure 104/81 Blood Pressure Mean 88 Pulse Oximetry 100 Oxygen Delivery Method Nasal Cannula Nasal Cannula Nasal Cannula Oxygen Flow Rate 6 6 6 Sepsis Recent Fever Within 48 Hours No Sepsis New/Unexplained Change in Mental Status No Sepsis Action Taken by Nursing No Action Required 01/06/20 20:31 01/06/20 20:59 01/06/20 21:01 Temperature Temperature Source Pulse Rate 94 H 100 H Pulse Rate [Right Radial] 94 H Pulse Rate from SpO2 Sensor 93 H 96 H Respiratory Rate 14 22 19 Respiratory Effort / Characteristics Non-Labored Blood Pressure 144/86 H 168/106 H Blood Pressure Mean 103 112 Pulse Oximetry 100 100 100 Oxygen Delivery Method Nasal Cannula Nasal Cannula Nasal Cannula Oxygen Flow Rate 6 6 6 Sepsis Recent Fever Within 48 Hours Sepsis New/Unexplained Change in Mental Status Sepsis Action Taken by Nursing 01/06/20 21:30 Temperature Temperature Source Pulse Rate 94 H Pulse Rate [Right Radial] Pulse Rate from SpO2 Sensor 95 H Respiratory Rate 18 Respiratory Effort / Characteristics Blood Pressure 147/71 H Blood Pressure Mean 80 Pulse Oximetry 99 Oxygen Delivery Method Nasal Cannula Oxygen Flow Rate 6 Sepsis Recent Fever Within 48 Hours Sepsis New/Unexplained Change in Mental Status Sepsis Action Taken by Nursing Laboratory Data Result diagrams: 01/06/20 20:35 01/06/20 20:35 Lab Results 01/06/20 01/06/20 01/06/20 Range/Units 20:29 20:35 20:35 WBC 7.18 (4.8-10.8) K/uL RBC 3.69 L (4.2-5.4) M/uL Hgb 10.3 L (12.0-16.0) g/dL Hct 34.7 L (37-47) % MCV 94.0 (80-100) fL MCH 27.9 (25-34) pg MCHC 29.7 L (32-36) g/dL RDW Std Deviation 50.0 H (36.4-46.3) fL RDW Coeff of Ana 14.6 H (11.5-14.5) % Plt Count 132 (130-400) K/uL MPV 10.2 (7.4-10.4) fL Immature Gran % (Auto) 0.3 % Neut % (Auto) 77.3 % Lymph % (Auto) 12.1 % [place] % (Auto) 7.8 % Eos % (Auto) 2.4 % Baso % (Auto) 0.1 % Immature Gran # (Auto) 0.02 (0.00-0.02) K/uL Neut # (Auto) 5.55 (1.4-6.5) K/uL Lymph # (Auto) 0.87 L (1.2-3.4) K/uL [place] # (Auto) 0.56 (0.11-0.59) K/uL Eos # (Auto) 0.17 (0-0.5) K/uL Baso # (Auto) 0.01 (0-0.2) K/uL PT 10.2 (9.0-12.0) Seconds INR 1.0 (0.9-1.1) APTT 22.6 (21.0-31.0) Seconds PTT Ratio 0.8 Sodium (136-145) mmol/L Potassium (3.5-5.1) mmol/L Chloride (98-107) mmol/L Carbon Dioxide (21-32) mmol/L Anion Gap (3-11) BUN (7-18) mg/dl Creatinine (0.6-1.2) mg/dl Est Cr Clr Drug Dosing ml/min Est GFR ( Amer) Est GFR (Non-Af Amer) BUN/Creatinine Ratio (10-20) Glucose (70-99) mg/dl Calcium (8.5-10.1) mg/dl Magnesium (1.8-2.4) mg/dl Total Bilirubin (0.2-1) mg/dl AST (15-37) U/L ALT (12-78) U/L Alkaline Phosphatase (45-117) U/L Troponin I (0-0.045) ng/ml NT-Pro-B Natriuret Pep (0-900) pg/ml Total Protein (6.4-8.2) gm/dl Albumin (3.4-5.0) gm/dl Globulin (2.5-4.0) gm/dl Albumin/Globulin Ratio (0.9-2) Influenza Type A (PCR) Neg for Influ A (Neg) Influenza Type B (PCR) Neg for Influ B (Neg) 01/06/20 Range/Units 20:35 WBC (4.8-10.8) K/uL RBC (4.2-5.4) M/uL Hgb (12.0-16.0) g/dL Hct (37-47) % MCV (80-100) fL MCH (25-34) pg MCHC (32-36) g/dL RDW Std Deviation (36.4-46.3) fL RDW Coeff of Ana (11.5-14.5) % Plt Count (130-400) K/uL MPV (7.4-10.4) fL Immature Gran % (Auto) % Neut % (Auto) % Lymph % (Auto) % [place] % (Auto) % Eos % (Auto) % Baso % (Auto) % Immature Gran # (Auto) (0.00-0.02) K/uL Neut # (Auto) (1.4-6.5) K/uL Lymph # (Auto) (1.2-3.4) K/uL [place] # (Auto) (0.11-0.59) K/uL Eos # (Auto) (0-0.5) K/uL Baso # (Auto) (0-0.2) K/uL PT (9.0-12.0) Seconds INR (0.9-1.1) APTT (21.0-31.0) Seconds PTT Ratio Sodium 143 (136-145) mmol/L Potassium 4.5 (3.5-5.1) mmol/L Chloride 101 (98-107) mmol/L Carbon Dioxide 41 H* (21-32) mmol/L Anion Gap 1.0 L (3-11) BUN 12 (7-18) mg/dl Creatinine 0.63 (0.6-1.2) mg/dl Est Cr Clr Drug Dosing 108.6 ml/min Est GFR ( Amer) 109.1 Est GFR (Non-Af Amer) 94.1 BUN/Creatinine Ratio 18.5 (10-20) Glucose 127 H (70-99) mg/dl Calcium 8.9 (8.5-10.1) mg/dl Magnesium 1.8 (1.8-2.4) mg/dl Total Bilirubin 0.3 (0.2-1) mg/dl AST 9 L (15-37) U/L ALT 14 (12-78) U/L Alkaline Phosphatase 83 (45-117) U/L Troponin I < 0.015 (0-0.045) ng/ml NT-Pro-B Natriuret Pep 850 (0-900) pg/ml Total Protein 6.2 L (6.4-8.2) gm/dl Albumin 2.2 L (3.4-5.0) gm/dl Globulin 4.0 (2.5-4.0) gm/dl Albumin/Globulin Ratio 0.5 L (0.9-2) Influenza Type A (PCR) (Neg) Influenza Type B (PCR) (Neg) Administered Medications Discontinued Medications Albuterol (Ventolin 0.083% 2.5mg/3ml) 5 mg NEB NOW STA Stop: 01/06/20 20:22 Last Admin: 01/06/20 20:57 Dose: 2.5 mg Documented by: [id number] Methylprednisolone (Solumedrol) 125 mg IV NOW STA Stop: 01/06/20 20:22 Last Admin: 01/06/20 20:43 Dose: 125 mg Documented by: [id number] Discharge Plan Visit Data Chief Complaint: Shortness of Breath/Dyspnea Stated Complaint: SOB ED Provider: Trino Bynum Discharge Problem: Pneumonia, Breath shortness, Weakness, Obesity hypoventilation syndrome Forms Stand Alone Forms: My [facility] [place] [employer] Prescriptions Prescriptions: No Action ergocalciferol (vitamin D2) 50,000 unit capsule 50,000 units PO WEEKLY Qty: 12 RF: 3 pantoprazole 40 mg tablet,delayed release (DR/EC) 40 mg PO DAILY Qty: 90 RF: 1 albuterol sulfate [Ventolin HFA] 90 mcg/actuation HFA aerosol inhaler 1 - 2 puffs INH Q6H PRN (Reason: shortness of breath or wheezing) Qty: 18 RF: 5 metformin 500 mg tablet extended release 24 hr 1,000 mg PO DAILY Qty: 180 RF: 1 pravastatin 80 mg tablet 80 mg PO DAILY Qty: 30 RF: 5 budesonide 0.5 mg/2 mL suspension for nebulization 0.5 mg inhalation BID Qty: 120 RF: 5 mupirocin 2 % ointment 1 appln topical BID Qty: 22 RF: 1 triamcinolone acetonide 0.1 % cream 1 applic TOPICAL BID Qty: 80 RF: 1 ipratropium bromide 0.02 % solution 2.5 ml INHALATION QID Qty: 62.5 RF: 5 Bevespi Aerosphere 9-4.8 mcg HFA aerosol inhaler 2 puff INHALATION AMPM Qty: 10.7 RF: 3 Hold Instructions: no samples, insurance coverage - trial stiolto tiotropium-olodaterol [Stiolto Respimat] 2.5-2.5 mcg/actuation mist 1 puff inhalation DAILY RF: 0 docusate sodium 100 mg tablet 100 mg PO BID Qty: 60 RF: 5 furosemide 40 mg tablet 40 mg PO DAILY Qty: 90 RF: 1 betamethasone dipropionate 0.05 % ointment 1 appln topical BID Qty: 1 RF: 0 tramadol 50 mg tablet 50 mg PO Q8H PRN (Reason: pain) Qty: 30 RF: 0 albuterol sulfate 2.5 mg /3 mL (0.083 %) solution for nebulization 2.5 mg inhalation Q4H PRN (Reason: wheezing) Qty: 2 RF: 5 baclofen 10 mg tablet 10 - 20 mg PO TID PRN (Reason: Muscle Spasm) RF: 0 polyethylene glycol 3350 17 gram/dose powder 17 - 34 gm PO DAILY PRN (Reason: constipation) RF: 0 Discharge Problem: Pneumonia Qualifiers: Pneumonia type: due to unspecified organism Laterality: unspecified laterality Lung location: unspecified part of lung Qualified Code(s): J18.9 - Pneumonia, unspecified organism
[2020-01-06 20:54] LABS: Basophils # (auto) 0.01 K/uL (0-0.2); Basophils % (auto) 0.1 %; Eosinophils # (auto) 0.17 K/uL (0-0.5); Eosinophils % (auto) 2.4 %; Hematocrit (blood only) 34.7 % (37-47); Hemoglobin 10.3 g/dL (12.0-16.0); Immature Granulocytes # (auto) 0.02 K/uL (0.00-0.02); Immature Granulocytes % (auto) 0.3 %; Lymphocytes # (auto) 0.87 K/uL (1.2-3.4); Lymphocytes % (auto) 12.1 %; Mean Corpuscular Hemoglobin 27.9 pg (25-34); Mean Corpuscular Hgb Conc 29.7 g/dL (32-36); Mean Platelet Volume 10.2 fL (7.4-10.4); Monocytes # (auto) 0.56 K/uL (0.11-0.59); Monocytes % (auto) 7.8 %; Neutrophils # (auto) 5.55 K/uL (1.4-6.5); Neutrophils % (auto) 77.3 %; Platelet Count 132 K/uL (130-400); RDW Coefficient of Variation 14.6 % (11.5-14.5); Red Blood Count 3.69 M/uL (4.2-5.4); White Blood Count 7.18 K/uL (4.8-10.8)
--- NOTE | 2020-01-06 21:01 | XRay Report ---
SINGLE VIEW CHEST CLINICAL HISTORY: Dyspnea. FINDINGS: 2 AP, portable, upright chest radiographs are compared to study dated 12/25/2019 and correla rhonda with chest CT dated 09/30/2019. The examination is degraded by portable technique and patient rot ation. The heart is top normal for projection noting atherosclerotic calcification of the thoracic ao rta. There is pulmonary vascular congestion. Emphysema and chronic interstitial thickening are simila r to previous. Airspace opacities are present at both lung bases. No large pleural effusion or pneumo thorax is seen. The skeletal structures are osteopenic. The bony thorax is grossly intact. IMPRESSION: 1. There is pulmonary vascular congestion. 2. Emphysema. 3. There are bibasilar airspace opacities which could represent scarring/atelectasis. Correlate clini barron for evidence of a superimposed infectious/inflammatory pneumonitis. ACT 112: Negative or not required by law. Electronically signed by: Lexa Mcgraw M.D. 01/06/2020 8:59 PM
[2020-01-06 21:04] LABS: Partial Thromboplastin Ratio 0.8; Partial Thromboplastin Time 22.6 Seconds (21.0-31.0); Prothrombin Time 10.2 Seconds (9.0-12.0)
[2020-01-06 21:11] LABS: Influenza A virus by PCR Neg for Influ A (Neg); Influenza B virus by PCR Neg for Influ B (Neg)
[2020-01-06 21:29] LABS: Alanine Aminotransferase 14 U/L (12-78); Albumin Level 2.2 gm/dl (3.4-5.0); Alkaline Phosphatase 83 U/L (45-117); Aspartate Aminotransferase 9 U/L (15-37); BUN Creatinine Ratio 18.5 (10-20); Bilirubin,Total 0.3 mg/dl (0.2-1); Blood Urea Nitrogen 12 mg/dl (7-18); Calcium 8.9 mg/dl (8.5-10.1); Carbon Dioxide 41 mmol/L (21-32); Chloride 101 mmol/L (98-107); Creatinine Clr Calc Pharmacy 108.6 ml/min; Est GFR (African American) 109.1; Est GFR (Non-African American) 94.1; Glucose 127 mg/dl (70-99); Magnesium 1.8 mg/dl (1.8-2.4); Potassium 4.5 mmol/L (3.5-5.1); Sodium 143 mmol/L (136-145); Total Protein 6.2 gm/dl (6.4-8.2); Troponin I < 0.015 ng/ml (0-0.045)
[2020-01-06] MEDS ORDERED: LEVOFLOXACIN/D5W 750 MG/150 ML BAG IV SCH (22:00)
[2020-01-06 22:10] LABS: Albumin Globulin Ratio 0.5 (0.9-2); NT Pro B Type Natriuretic Pept 850 pg/ml (0-900)
[2020-01-06] MEDS ORDERED: cefTRIAXone SODIUM 1,000 MG/50 ML BAG IV STA (22:18)
[2020-01-06 23:30] LABS: Adenovirus PCR Not Detected (NotDetected); Bordetella parapertussis PCR Not Detected (NotDetected); Bordetella pertussis PCR Not Detected (NotDetected); Chlamydia pneumoniae PCR Not Detected (NotDetected); Coronavirus 229E PCR Not Detected (NotDetected); Coronavirus HKU1 PCR Not Detected (NotDetected); Coronavirus NL63 PCR Not Detected (NotDetected); Coronavirus OC43PCR Not Detected (NotDetected); Human Metapneumovirus PCR Not Detected (NotDetected); Influenza A PCR Not Detected (NotDetected); Influenza B PCR Not Detected (NotDetected); Mycoplasma pneumoniae PCR Not Detected (NotDetected); Parainfluenza Virus 1 PCR Not Detected (NotDetected); Parainfluenza Virus 2 PCR Not Detected (NotDetected); Parainfluenza Virus 3 PCR Not Detected (NotDetected); Parainfluenza Virus 4 PCR Not Detected (NotDetected); Respiratory Syncytial VirusPCR Not Detected (NotDetected); Rhinovirus/Enterovirus PCR Not Detected (NotDetected)
--- NOTE | 2020-01-06 23:32 | History & Physical Report ---
Date of Service January 06, 2020 Assessment & Plan (1) Acute and chronic respiratory failure: Sheri Landeros is a 64y/o F with PMH significant for COPD, diastolic heart dysfunction, CAD, and respiratory failure that presented the ER for shortness of breath and weakness. Acute on Chronic Respiratory failure: - likely 2/2 COPD exacerbation, ? if viral or bacterial origination; treating as potential HAP - patient hospitalized within the last 30 days for hypoxic respiratory failure, at that time requiring intubation - increased O2 demands on presentation as compared to previous discharge now using 6L NC (prior to last discharge pt on 4L NC) - CXR demonstrating some pulmonary vascular congestion, and b/l bibasilar airspace opacities which could represent scarring/atelectasis - pro-calcitonin negative, and no elevation in white count - Flu negative, Biofire panel Negative - started on Zyvox and Cefepime COPD: - patient on home O2 of 4L following last discharge - wean O2 as needed; maintain O2 sats between 88-92% - continue home nebulizers/inhalers - continue to monitor ROZ: - patient utilizes BiPAP at home - continue BiPAP T2DM: - hold home oral regimen - started on SSI with Lantus - continue to monitor Diet: Carb consistent T2DM DVT ppx: SCDs Code Status: Full code (2) COPD (chronic obstructive pulmonary disease): (3) Pneumonia: (4) Obstructive sleep apnea: (5) Type 2 diabetes mellitus: History of Present Illness Chief Complaint: shortness of breath Primary Care Provider: Beatriz Baker DO Sheri Landeros is a 64y/o F with PMH significant for COPD, diastolic heart dysfunction, CAD, and respiratory failure that presented the ER for shortness of breath and weakness. Patient notes that she tried to walk to the bathroom when she started to feel short of breath, and then after returning to the couch felt in significant shortness of breath and on her home pulse ox she noticed that she desatted to 76%, as a result of this she used her inhaler and increased her oxygen flow, but despite this the reading on her pulse ox would not elevate. She feels that she is too weak to get up or move around. She was recently admitted and discharged and treated for COPD exacerbation. Patient denies any new changes in medications. Denies any fevers. Does admit to yellow productive cough which has been significantly worse over the past 3 days. Denies any trips or travel. He lives at home with son, [id number], and grandson; [id number] and grandson were sick several weeks ago, prior to her previous admission, but have been well since she returned to their home; no known exposure to someone with COVID diagnosis or pending lab. Allergies Allergy/AdvReac Type Severity Reaction Status Date / Time codeine AdvReac Mild SHAKING Verified 12/30/19 09:28 oxycodone AdvReac Unknown rash/shakes Verified 12/30/19 09:28 Home Medications Home Medications Medication Instructions Recorded Confirmed Type ergocalciferol (vitamin D2) 1,250 50,000 units PO WEEKLY #12 cap 05/29/19 01/06/20 Rx mcg (50,000 unit) capsule pantoprazole 40 mg tablet,delayed 40 mg PO DAILY #90 tab 06/05/19 01/06/20 Rx release betamethasone dipropionate 0.05 % 1 appln TOPICAL BID #1 gm 06/09/19 01/06/20 History topical ointment tramadol 50 mg tablet 50 mg PO Q8H PRN #30 tab 06/09/19 01/06/20 History albuterol sulfate 90 mcg/actuation 1 - 2 puffs INH Q6H PRN #18 gm 06/19/19 01/06/20 Rx aerosol inhaler albuterol sulfate 2.5 mg INHALATION Q4H PRN #2 ml 09/10/19 01/06/20 Rx metformin 500 mg tablet,extended 1,000 mg PO DAILY #180 tab 09/19/19 01/06/20 Rx release 24 hr pravastatin 80 mg tablet 80 mg PO DAILY #30 tab 10/09/19 01/06/20 Rx glycopyrrolate 9 mcg-formoterol 2 puff INHALATION AMPM #10.7 gm 10/14/19 01/06/20 Rx 4.8 mcg HFA aerosol inhaler budesonide 0.5 mg/2 mL suspension 0.5 mg INHALATION BID #120 ml 10/16/19 01/06/20 Rx for nebulization mupirocin 2 % topical ointment 1 appln TOPICAL BID #22 gm 11/21/19 01/06/20 Rx triamcinolone acetonide 0.1 % 1 applic TOPICAL BID #80 gm 11/21/19 01/06/20 Rx topical cream ipratropium bromide 0.02 % 2.5 ml INHALATION QID #62.5 ml 12/19/19 01/06/20 Rx solution for inhalation docusate sodium 100 mg tablet 100 mg PO BID #60 tab 12/30/19 01/06/20 Rx furosemide 40 mg tablet 40 mg PO DAILY #90 tab 12/30/19 01/06/20 Rx baclofen 10 - 20 mg PO TID PRN 01/06/20 01/06/20 History polyethylene glycol 3350 17 - 34 gm PO DAILY PRN 01/06/20 01/06/20 History Past Med/Surg History Social History Preferred Language: Guamanian Communication Ability: Effective Electron Gun Inspector Required: No Beliefs That Will Affect Care: None marital status: Current Living Situation: Family Current Living Situation Comment: w/ DIL and son Other Information That Helps Us Care for You: No Feels Safe at Home: Yes Safety Concerns: Feels Safe At This Time Smoking Status: Former smoker Do You Dip or Chew Tobacco: No ; Smoking End Date: 15 years ago ; Second Hand Exposure: No ; Tobacco Cessation Education Requested by Patient: No Hx Alcohol Use: No Hx Substance Use: No Dental Care, Regularly: No Physical Activity Frequency: Does not Exercise Seatbelt Use: always Review of Systems Review of Systems: All systems reviewed & are unremarkable except as noted in HPI & below Physical Exam Constitutional: WD/WN, vitals as above Eyes: PERRL, conjunctivae normal, anicteric sclerae ENMT: external ear and nose normal, oropharynx normal Neck: normal visual inspection Respiratory: able to speak in complete sentences and symmetric chest movement; no cough Auscultation: + diminished lung sounds (lower lobes b/l) and + wheezes; no crackles and no rales Cardiovascular: Rate/Rhythm: regular rate and regular rhythm Heart Sounds: normal S1 and normal S2; no gallop, no murmur and no cardiac rub Vessels: no JVD Extremities: + pedal edema Gastrointestinal (Abdomen): normal bowel sounds, soft, nontender, no hepatosplenomegaly Musculoskeletal: no cyanosis or clubbing, extremities motor strength 5/5 Skin: no rashes, warm and dry Neurologic: normal touch/pain/proprioception, CN's II-XI intact bilaterally, plantar reflexes intact bilaterally, moves all extremities and awake Psychiatric: A+Ox3, euthymic affect Lymphatic: no cervical or axillary lymphadenopathy Results & Data Results & Data ([facility]) Vital Signs (Past 12 Hours) Vital Signs Temp Pulse Pulse Resp BP Pulse Ox 01/06/20 22:31 97 H 24 166/77 H 99 01/06/20 22:00 90 20 99 01/06/20 21:30 94 H 18 147/71 H 99 01/06/20 21:01 100 H 19 168/106 H 100 01/06/20 20:59 94 H 22 100 01/06/20 20:31 94 H 14 144/86 H 100 01/06/20 20:11 36.9 C 94 H 18 104/81 100 Laboratory Results 01/07/20 01/06/20 01/06/20 Range/Units 00:15 22:15 20:35 WBC (4.8-10.8) K/uL RBC (4.2-5.4) M/uL Hgb (12.0-16.0) g/dL Hct (37-47) % MCV (80-100) fL MCH (25-34) pg MCHC (32-36) g/dL RDW Std Deviation (36.4-46.3) fL RDW Coeff of Ana (11.5-14.5) % Plt Count (130-400) K/uL MPV (7.4-10.4) fL Immature Gran % (Auto) % Neut % (Auto) % Lymph % (Auto) % Stearns % (Auto) % Eos % (Auto) % Baso % (Auto) % Immature Gran # (Auto) (0.00-0.02) K/uL Neut # (Auto) (1.4-6.5) K/uL Lymph # (Auto) (1.2-3.4) K/uL Stearns # (Auto) (0.11-0.59) K/uL Eos # (Auto) (0-0.5) K/uL Baso # (Auto) (0-0.2) K/uL PT (9.0-12.0) Seconds INR (0.9-1.1) APTT (21.0-31.0) Seconds PTT Ratio Sodium (136-145) mmol/L Potassium (3.5-5.1) mmol/L Chloride (98-107) mmol/L Carbon Dioxide (21-32) mmol/L Anion Gap (3-11) BUN (7-18) mg/dl Creatinine (0.6-1.2) mg/dl Est Cr Clr Drug Dosing ml/min Est GFR ( Amer) Est GFR (Non-Af Amer) BUN/Creatinine Ratio (10-20) Glucose (70-99) mg/dl POC Glucose 175 H (70-99) mg/dl Calcium (8.5-10.1) mg/dl Magnesium (1.8-2.4) mg/dl Total Bilirubin (0.2-1) mg/dl AST (15-37) U/L ALT (12-78) U/L Alkaline Phosphatase (45-117) U/L Troponin I (0-0.045) ng/ml NT-Pro-B Natriuret Pep (0-900) pg/ml Total Protein (6.4-8.2) gm/dl Albumin (3.4-5.0) gm/dl Globulin (2.5-4.0) gm/dl Albumin/Globulin Ratio (0.9-2) Procalcitonin 0.07 (0-0.5) ng/ml Adenovirus (PCR) Not Detected (NotDetected) B. pertussis DNA (PCR) Not Detected (NotDetected) B.parapertussis DNA PCR Not Detected (NotDetected) C. pneumoniae DNA (PCR) Not Detected (NotDetected) Coronavirus OC43 (PCR) Not Detected (NotDetected) Coronavirus HKU1 (PCR) Not Detected (NotDetected) Coronavirus 229E (PCR) Not Detected (NotDetected) Coronavirus NL63 (PCR) Not Detected (NotDetected) Human Metapneumovir PCR Not Detected (NotDetected) Influenza Type A (PCR) Not Detected (Neg) Influenza Type B (PCR) Not Detected (Neg) M. pneumoniae (PCR) Not Detected (NotDetected) Parainfluenza 1 (PCR) Not Detected (NotDetected) Parainfluenza 2 (PCR) Not Detected (NotDetected) Parainfluenza 3 (PCR) Not Detected (NotDetected) Parainfluenza 4 (PCR) Not Detected (NotDetected) RSV (PCR) Not Detected (NotDetected) Entero/Rhino (PCR) Not Detected (NotDetected) 01/06/20 01/06/20 01/06/20 Range/Units 20:35 20:35 20:35 WBC 7.18 (4.8-10.8) K/uL RBC 3.69 L (4.2-5.4) M/uL Hgb 10.3 L (12.0-16.0) g/dL Hct 34.7 L (37-47) % MCV 94.0 (80-100) fL MCH 27.9 (25-34) pg MCHC 29.7 L (32-36) g/dL RDW Std Deviation 50.0 H (36.4-46.3) fL RDW Coeff of Ana 14.6 H (11.5-14.5) % Plt Count 132 (130-400) K/uL MPV 10.2 (7.4-10.4) fL Immature Gran % (Auto) 0.3 % Neut % (Auto) 77.3 % Lymph % (Auto) 12.1 % Stearns % (Auto) 7.8 % Eos % (Auto) 2.4 % Baso % (Auto) 0.1 % Immature Gran # (Auto) 0.02 (0.00-0.02) K/uL Neut # (Auto) 5.55 (1.4-6.5) K/uL Lymph # (Auto) 0.87 L (1.2-3.4) K/uL Stearns # (Auto) 0.56 (0.11-0.59) K/uL Eos # (Auto) 0.17 (0-0.5) K/uL Baso # (Auto) 0.01 (0-0.2) K/uL PT 10.2 (9.0-12.0) Seconds INR 1.0 (0.9-1.1) APTT 22.6 (21.0-31.0) Seconds PTT Ratio 0.8 Sodium 143 (136-145) mmol/L Potassium 4.5 (3.5-5.1) mmol/L Chloride 101 (98-107) mmol/L Carbon Dioxide 41 H* (21-32) mmol/L Anion Gap 1.0 L (3-11) BUN 12 (7-18) mg/dl Creatinine 0.63 (0.6-1.2) mg/dl Est Cr Clr Drug Dosing 108.6 ml/min Est GFR ( Amer) 109.1 Est GFR (Non-Af Amer) 94.1 BUN/Creatinine Ratio 18.5 (10-20) Glucose 127 H (70-99) mg/dl POC Glucose (70-99) mg/dl Calcium 8.9 (8.5-10.1) mg/dl Magnesium 1.8 (1.8-2.4) mg/dl Total Bilirubin 0.3 (0.2-1) mg/dl AST 9 L (15-37) U/L ALT 14 (12-78) U/L Alkaline Phosphatase 83 (45-117) U/L Troponin I < 0.015 (0-0.045) ng/ml NT-Pro-B Natriuret Pep 850 (0-900) pg/ml Total Protein 6.2 L (6.4-8.2) gm/dl Albumin 2.2 L (3.4-5.0) gm/dl Globulin 4.0 (2.5-4.0) gm/dl Albumin/Globulin Ratio 0.5 L (0.9-2) Procalcitonin (0-0.5) ng/ml Adenovirus (PCR) (NotDetected) B. pertussis DNA (PCR) (NotDetected) B.parapertussis DNA PCR (NotDetected) C. pneumoniae DNA (PCR) (NotDetected) Coronavirus OC43 (PCR) (NotDetected) Coronavirus HKU1 (PCR) (NotDetected) Coronavirus 229E (PCR) (NotDetected) Coronavirus NL63 (PCR) (NotDetected) Human Metapneumovir PCR (NotDetected) Influenza Type A (PCR) (Neg) Influenza Type B (PCR) (Neg) M. pneumoniae (PCR) (NotDetected) Parainfluenza 1 (PCR) (NotDetected) Parainfluenza 2 (PCR) (NotDetected) Parainfluenza 3 (PCR) (NotDetected) Parainfluenza 4 (PCR) (NotDetected) RSV (PCR) (NotDetected) Entero/Rhino (PCR) (NotDetected) 01/06/20 Range/Units 20:29 WBC (4.8-10.8) K/uL RBC (4.2-5.4) M/uL Hgb (12.0-16.0) g/dL Hct (37-47) % MCV (80-100) fL MCH (25-34) pg MCHC (32-36) g/dL RDW Std Deviation (36.4-46.3) fL RDW Coeff of Ana (11.5-14.5) % Plt Count (130-400) K/uL MPV (7.4-10.4) fL Immature Gran % (Auto) % Neut % (Auto) % Lymph % (Auto) % Stearns % (Auto) % Eos % (Auto) % Baso % (Auto) % Immature Gran # (Auto) (0.00-0.02) K/uL Neut # (Auto) (1.4-6.5) K/uL Lymph # (Auto) (1.2-3.4) K/uL Stearns # (Auto) (0.11-0.59) K/uL Eos # (Auto) (0-0.5) K/uL Baso # (Auto) (0-0.2) K/uL PT (9.0-12.0) Seconds INR (0.9-1.1) APTT (21.0-31.0) Seconds PTT Ratio Sodium (136-145) mmol/L Potassium (3.5-5.1) mmol/L Chloride (98-107) mmol/L Carbon Dioxide (21-32) mmol/L Anion Gap (3-11) BUN (7-18) mg/dl Creatinine (0.6-1.2) mg/dl Est Cr Clr Drug Dosing ml/min Est GFR ( Amer) Est GFR (Non-Af Amer) BUN/Creatinine Ratio (10-20) Glucose (70-99) mg/dl POC Glucose (70-99) mg/dl Calcium (8.5-10.1) mg/dl Magnesium (1.8-2.4) mg/dl Total Bilirubin (0.2-1) mg/dl AST (15-37) U/L ALT (12-78) U/L Alkaline Phosphatase (45-117) U/L Troponin I (0-0.045) ng/ml NT-Pro-B Natriuret Pep (0-900) pg/ml Total Protein (6.4-8.2) gm/dl Albumin (3.4-5.0) gm/dl Globulin (2.5-4.0) gm/dl Albumin/Globulin Ratio (0.9-2) Procalcitonin (0-0.5) ng/ml Adenovirus (PCR) (NotDetected) B. pertussis DNA (PCR) (NotDetected) B.parapertussis DNA PCR (NotDetected) C. pneumoniae DNA (PCR) (NotDetected) Coronavirus OC43 (PCR) (NotDetected) Coronavirus HKU1 (PCR) (NotDetected) Coronavirus 229E (PCR) (NotDetected) Coronavirus NL63 (PCR) (NotDetected) Human Metapneumovir PCR (NotDetected) Influenza Type A (PCR) Neg for Influ A (Neg) Influenza Type B (PCR) Neg for Influ B (Neg) M. pneumoniae (PCR) (NotDetected) Parainfluenza 1 (PCR) (NotDetected) Parainfluenza 2 (PCR) (NotDetected) Parainfluenza 3 (PCR) (NotDetected) Parainfluenza 4 (PCR) (NotDetected) RSV (PCR) (NotDetected) Entero/Rhino (PCR) (NotDetected) Medications Administered Current Inpatient Medications Acetaminophen (Tylenol) 650 mg PO Q4H PRN PRN Reason: pain/fever Stop: 02/06/20 00:28 Al Hydrox/Mg Hydrox/Simethicone (Maalox) 30 ml PO Q6H PRN PRN Reason: Dyspepsia Stop: 02/06/20 00:28 Albuterol (Ventolin 0.083% 2.5mg/3ml) 2.5 mg INH Q4H PRN PRN Reason: wheezing Stop: 02/06/20 00:28 Baclofen (Lioresal) 10 - 20 mg PO TID PRN PRN Reason: Muscle Spasm Stop: 02/06/20 00:28 Budesonide (Pulmicort Respules) 0.5 mg INH BIDR YAN Stop: 02/06/20 06:59 Dextrose (Dextrose 50%) 25 - 50 ml IV UD PRN; Protocol PRN Reason: Hypoglycemia Protocol Stop: 02/06/20 00:28 Docusate Sodium (Colace) 100 mg PO BID YAN Stop: 02/06/20 08:59 Furosemide (Lasix) 40 mg PO DAILY YAN Stop: 02/06/20 08:59 Glucagon (Glucagen) 1 mg SQ UD PRN; Protocol PRN Reason: Hypoglycemia Protocol Stop: 02/06/20 00:28 Glucose (Dex4 Glucose) 4 - 8 tabs PO UD PRN; Protocol PRN Reason: Hypoglycemia Protocol Stop: 02/06/20 00:28 Glucose (Glucose 40%) 15 - 30 gm PO UD PRN; Protocol PRN Reason: Hypoglycemia Protocol Stop: 02/06/20 00:28 Cefepime HCl 2,000 mg/ Syringe 20 mls @ 5.5 mls/min IV Q12H YAN; Protocol Stop: 01/14/20 01:59 Last Admin: 01/07/20 01:24 Dose: 5.5 mls/min Documented by: Linezolid (Zyvox) 600 mg in 300 mls @ 200 mls/hr IV Q12H YAN; Protocol Stop: 01/14/20 00:59 Last Admin: 01/07/20 01:25 Dose: 200 mls/hr Documented by: Insulin Aspart (Novolog Flexpen) 0 units SC ACHS YAN Stop: 02/06/20 07:29 Insulin Glargine (Lantus Solostar Pen) 15 units SC BID YAN Stop: 02/06/20 08:59 Ipratropium [place] (Atrovent 0.02% 0.5mg/2.5ml) 0.5 mg INH QIDR YAN Stop: 02/06/20 06:59 Magnesium Hydroxide (Milk Of Magnesia) 30 ml PO Q6H PRN PRN Reason: Constipation Stop: 02/06/20 00:28 Miscellaneous (Carbohydrates For Hypoglycemia) 15 - 30 gm PO UD PRN PRN Reason: Hypoglycemia Protocol Stop: 02/06/20 00:28 Miscellaneous Information (Consult) 1 ea N/A UD PRN PRN Reason: Consult Stop: 02/06/20 00:28 Ondansetron HCl (Zofran) 4 mg IV Q6H PRN PRN Reason: Nausea Stop: 02/06/20 00:28 Pantoprazole Sodium (Protonix) 40 mg PO DAILY [facility] Stop: 02/06/20 08:59 Polyethylene Glycol (Miralax Powder Packet) 17 gm PO DAILY PRN PRN Reason: constipation Stop: 02/06/20 00:28 Pravastatin Sodium (Pravachol) 80 mg PO DAILY YAN Stop: 02/06/20 08:59 Umeclidinium/Vilanterol (Anoro Ellipta 62.5/25 Mcg Inh) 1 puffs INH DAILY YAN Stop: 02/06/20 08:59 Code Status & VTE Plan Code Status Full Code Supervising Physician Co-Signing Physician Notes Attending addendum: I have physically seen this patient, have supervised the medical residents activities, and agree with the H&P unless as otherwise noted. Assessment and Plan: Acute on chronic respiratory failure with hypoxia/pneumonia/COPD/ROZ- History of intubation during admission from 12/15-12/23. Zyvox 600 mg IV every 12 hours. Cefepime 1 g IV every 12 hours. Follow sputum Gram stain and culture. Flu negative and bio fire negative. Continue home BiPAP at bedtime Remainder of orders and notations as noted. Resident Activity Tracking Resident Involvement: Resident Care Provided Care Provided: Adult Hospital Medicine (1) COPD (chronic obstructive pulmonary disease) COPD type: unspecified COPD Qualified Code(s): J44.9 - Chronic obstructive pulmonary disease, unspecified (2) Pneumonia Laterality: unspecified laterality Lung location: unspecified part of lung Pneumonia type: due to unspecified organism Qualified Code(s): J18.9 - Pneumonia, unspecified organism
[2020-01-07] MEDS ORDERED: LINEZOLID 600 MG/300 ML D5W IV SCH (00:29)
[2020-01-07] MEDS ORDERED: ACETAMINOPHEN 325 MG TAB PO PRN (00:29)
[2020-01-07] MEDS ORDERED: ALUMINUM/MAGNESIUM SUSP 30 ML UDC PO PRN (00:29)
[2020-01-07] MEDS ORDERED: ONDANSETRON INJ 2 MG/ML 2 ML VIAL IV PRN (00:29)
[2020-01-07] MEDS ORDERED: TRAMADOL HCL 50 MG TABLET PO PRN (00:29)
[2020-01-07] MEDS ORDERED: DEXTROSE 50% 50 ML SYRINGE IV PRN (00:29)
[2020-01-07] MEDS ORDERED: GLUCOSE 40% GEL 15 GM TUBE PO PRN (00:29)
[2020-01-07] MEDS ORDERED: GLUCAGON FOR INJ 1 MG VIAL SQ PRN (00:29)
[2020-01-07] MEDS ORDERED: LINEZOLID CONSULT ACTIVE PRN (00:29)
[2020-01-07] MEDS ORDERED: POLYETHYLENE (MIRALAX) 17 GM PACK PO PRN (00:29)
[2020-01-07] MEDS ORDERED: GLUCOSE 10 TABS/TUBE PO PRN (00:29)
[2020-01-07] MEDS ORDERED: MAGNESIUM HYDROXIDE SUSP 30 ML UDC PO PRN (00:29)
[2020-01-07] MEDS: CEFEPIME 2,000 MG in SYRINGE 7.5 ML IV SCH ×3 (01:24→21:07)
[2020-01-07] MEDS: LINEZOLID 600 MG/300 ML BAG IV SCH ×2 (01:25→12:37)
[2020-01-07] MEDS: ALBUTEROL 0.083% NEBU SOLN 3 ML VIAL INH PRN (02:22)
[2020-01-07] MEDS ORDERED: COUGH DROP (SUGAR FREE) LOZ 24 LOZ/1 BOX BUCCAL PRN (05:26)
[2020-01-07 05:30] LABS: Appearance Urine Clear (Clear); Bilirubin Urine Negative (Negative); Blood Urine 3+ (Negative); Color Urine Dark Yellow; Epithelial Cell Urine Auto >30 /lpf (0-5); Glucose Urine UA Trace (Negative); Ketones Urine 2+ (Negative); Leukocyte Esterase Urine Negative (Negative); Nitrite Urine Negative (Negative); Protein Urine 2+ (Negative); Specific Gravity Urine 1.032 (1.000-1.030); Urobilinogen Urine Negative (Negative)
[2020-01-07 05:41] LABS: Mucus Urine Present (None Prsent)
[2020-01-07 05:42] LABS: Bacteria Urine Automated 1+ (Negative)
[2020-01-07 06:05] LABS: Eosinophils # (auto) 0.01 K/uL (0-0.5); Eosinophils % (auto) 0.1 %; Hematocrit (blood only) 35.7 % (37-47); Hemoglobin 10.9 g/dL (12.0-16.0); Immature Granulocytes # (auto) 0.03 K/uL (0.00-0.02); Immature Granulocytes % (auto) 0.4 %; Lymphocytes # (auto) 0.35 K/uL (1.2-3.4); Mean Corpuscular Hemoglobin 28.2 pg (25-34); Mean Corpuscular Hgb Conc 30.5 g/dL (32-36); Mean Corpuscular Volume 92.5 fL (80-100); Mean Platelet Volume 10.2 fL (7.4-10.4); Monocytes # (auto) 0.04 K/uL (0.11-0.59); Monocytes % (auto) 0.6 %; Neutrophils # (auto) 6.54 K/uL (1.4-6.5); Neutrophils % (auto) 93.9 %; Nucleated RBC # (auto) 0.03 K/uL (0-0); Nucleated RBC % (auto) 0.5 %; Platelet Count 132 K/uL (130-400); RDW Coefficient of Variation 14.4 % (11.5-14.5); RDW Standard Deviation 48.8 fL (36.4-46.3); Red Blood Count 3.86 M/uL (4.2-5.4); White Blood Count 6.97 K/uL (4.8-10.8)
[2020-01-07] MEDS: IPRATROPIUM BROMIDE NEB SOLN 0.02% 2.5 ML VIAL INH SCH ×4 (06:44→18:53)
[2020-01-07] MEDS: BUDESONIDE 0.5 MG/2 ML VIAL (PULMICORT) INH SCH ×2 (06:45→18:53)
[2020-01-07 06:47] LABS: BUN Creatinine Ratio 21.7 (10-20); Calcium 8.8 mg/dl (8.5-10.1); Creatinine Clr Calc Pharmacy 118.8 ml/min; Est GFR (African American) 112.7; Est GFR (Non-African American) 97.3; Potassium 4.6 mmol/L (3.5-5.1)
[2020-01-07] MEDS ORDERED: MICONAZOLE NITRATE POWDER 43 GM EXT PRN (08:15)
[2020-01-07] MEDS: INSULIN ASPART 100 UNITS/ML 3 ML PEN SC SCH ×4 (08:51→21:07)
[2020-01-07] MEDS: INSULIN GLARGINE SOLOSTAR 100 UNITS/ML 3 ML PEN SC SCH ×2 (08:52→21:08)
[2020-01-07] MEDS: PRAVASTATIN SOD 40 MG TAB PO SCH (08:52)
[2020-01-07] MEDS: DOCUSATE SODIUM 100 MG CAP PO SCH ×2 (08:53→19:43)
[2020-01-07] MEDS: PANTOprazole 40 MG TAB PO SCH (08:53)
[2020-01-07] MEDS: UMECLIDINIUM/VILANTEROL 62.5/25MCG 7 PUFFS/INHALER INH SCH (08:53)
[2020-01-07] MEDS ORDERED: FUROSEMIDE 40 MG TAB PO SCH (09:00)
[2020-01-07] MEDS: FUROSEMIDE 40 MG in SYRINGE 0 ML IV SCH ×2 (09:42→21:07)
[2020-01-07] MEDS ORDERED: SODIUM CHLORIDE 0.65% NA SOLN 45 ML (OCEAN) PRN (17:05)
[2020-01-07] MEDS: BACLOFEN 10 MG TAB PO PRN (19:42)
--- NOTE | 2020-01-07 22:28 | Hospitalist Progress Note ---
Date of Service January 07, 2020 Assessment & Plan (1) Acute and chronic respiratory failure: Sheri Landeros is a 64y/o F with PMH significant for COPD, diastolic heart dysfunction, CAD, and respiratory failure that presented the ER for shortness of breath and weakness. Acute on Chronic Respiratory failure: -Likely volume overload. -May be secondary to possible acute on chronic diastolic heart failure. -BNP remains low. -COPD EXACERBATION is also a possiblity, though seems unlikely. -carolyn contiue antibiotics for another day. - patient hospitalized within the last 30 days for hypoxic respiratory failure, at that time requiring intubation - increased O2 demands on presentation as compared to previous discharge now using 6L NC (prior to last discharge pt on 4L NC) -will try to titrate this down. -discussed with intensitivist/pulmonary (no official consult), -will diurese - CXR demonstrating some pulmonary vascular congestion, and b/l bibasilar airspace opacities which could represent scarring/atelectasis - pro-calcitonin negative, and no elevation in white count - Flu negative, Biofire panel Negative - continue Zyvox and Cefepime COPD: - patient on home O2 of 4L following last discharge - wean O2 as needed; maintain O2 sats between 88-92% - continue home nebulizers/inhalers - continue to monitor ROZ: - patient utilizes BiPAP at home - continue BiPAP T2DM: - hold home oral regimen - started on SSI with Lantus - continue to monitor Diet: Carb consistent T2DM DVT ppx: SCDs Code Status: Full code (2) COPD (chronic obstructive pulmonary disease): (3) Pneumonia: (4) Obstructive sleep apnea: (5) Type 2 diabetes mellitus: Admission and Anticipated Discharge Date Admission Date: January 06, 2020 Subjective 64 yo female reports that she is normally short of breath, but reports that she felt more fatigued than usual. She states that she denies any fever, chills nausea, vomiting. She reports normally she is not that active and only ambulates from her room to the bathroom or to the kitchen. She continues to report that she does not want home health. Review of Systems Review of Systems: All systems reviewed & are unremarkable except as noted in HPI & below Physical Exam Physical Exam: Constitutional: WD/WN, vitals as above Eyes: PERRL, conjunctivae normal, anicteric sclerae ENMT: external ear and nose normal, oropharynx normal Neck: normal visual inspection Respiratory: able to speak in complete sentences and symmetric chest movement; no cough Auscultation: + diminished lung sounds (lower lobes b/l); no crackles and no rales Cardiovascular: Rate/Rhythm: regular rate and regular rhythm Heart Sounds: normal S1 and normal S2; no gallop, no murmur and no cardiac rub Vessels: no JVD Extremities: + pedal edema Gastrointestinal (Abdomen): normal bowel sounds, soft, nontender, no hepatosplenomegaly Musculoskeletal: no cyanosis or clubbing, extremities motor strength 5/5 Skin: no rashes, warm and dry Neurologic: normal touch/pain/proprioception, CN's II-XI intact bilaterally, plantar reflexes intact bilaterally, moves all extremities and awake Psychiatric: A+Ox3, euthymic affect Lymphatic: no cervical or axillary lymphadenopathy Results & Data Results & Data ([facility]) Vital Signs (Past 12 Hours) Vital Signs Temp Pulse Resp BP Pulse Ox 01/07/20 18:54 96 H 18 95 01/07/20 15:24 94 H 22 93 01/07/20 14:39 36.8 C 102 H 20 161/90 H 95 01/07/20 11:03 93 H 16 93 PG Care Time/CCT Total # of Minutes Spent Total Time Spent with Patient: Total time spent is greater than 50% in coordination of care (as documented) at patient's floor/unit and/or counseling patient: Coding Level of Care Code 78208 Subseq Hosp Care Lvl 3 Diagnoses Acute and chronic respiratory failure J96.20 COPD (chronic obstructive pulmonary disease) J44.9 COPD type: unspecified COPD Pneumonia J18.9 Laterality: unspecified laterality Lung location: unspecified part of lung Pneumonia type: due to unspecified organism Obstructive sleep apnea G47.33 Type 2 diabetes mellitus E11.9 Time Spent (min) 35 (1) COPD (chronic obstructive pulmonary disease) COPD type: unspecified COPD Qualified Code(s): J44.9 - Chronic obstructive pulmonary disease, unspecified (2) Pneumonia Laterality: unspecified laterality Lung location: unspecified part of lung Pneumonia type: due to unspecified organism Qualified Code(s): J18.9 - Pneumonia, unspecified organism
[2020-01-08] MEDS: LINEZOLID 600 MG/300 ML BAG IV SCH (01:15)
[2020-01-08] MEDS: ALBUTEROL 0.083% NEBU SOLN 3 ML VIAL INH PRN ×2 (04:01→23:44)
[2020-01-08] MEDS: CEFEPIME 2,000 MG in SYRINGE 7.5 ML IV SCH ×3 (05:51→21:44)
[2020-01-08 06:06] LABS: Eosinophils # (auto) 0.04 K/uL (0-0.5); Eosinophils % (auto) 0.6 %; Hematocrit (blood only) 37.2 % (37-47); Hemoglobin 11.5 g/dL (12.0-16.0); Immature Granulocytes # (auto) 0.01 K/uL (0.00-0.02); Immature Granulocytes % (auto) 0.1 %; Lymphocytes # (auto) 1.57 K/uL (1.2-3.4); Lymphocytes % (auto) 23.3 %; Mean Corpuscular Hgb Conc 30.9 g/dL (32-36); Mean Corpuscular Volume 90.5 fL (80-100); Mean Platelet Volume 9.8 fL (7.4-10.4); Monocytes # (auto) 0.65 K/uL (0.11-0.59); Monocytes % (auto) 9.6 %; Neutrophils # (auto) 4.48 K/uL (1.4-6.5); Neutrophils % (auto) 66.4 %; Platelet Count 153 K/uL (130-400); RDW Coefficient of Variation 14.3 % (11.5-14.5); RDW Standard Deviation 47.4 fL (36.4-46.3); Red Blood Count 4.11 M/uL (4.2-5.4); White Blood Count 6.75 K/uL (4.8-10.8)
[2020-01-08 06:58] LABS: BUN Creatinine Ratio 17.8 (10-20); Creatinine Clr Calc Pharmacy 78.8 ml/min; Est GFR (African American) 82.2; Est GFR (Non-African American) 70.9; Potassium 3.7 mmol/L (3.5-5.1)
[2020-01-08] MEDS: IPRATROPIUM BROMIDE NEB SOLN 0.02% 2.5 ML VIAL INH SCH ×4 (06:59→18:52)
[2020-01-08] MEDS: BUDESONIDE 0.5 MG/2 ML VIAL (PULMICORT) INH SCH ×2 (06:59→18:52)
[2020-01-08] MEDS: PANTOprazole 40 MG TAB PO SCH (08:21)
[2020-01-08] MEDS: FUROSEMIDE 40 MG in SYRINGE 0 ML IV SCH (08:21)
[2020-01-08] MEDS: INSULIN GLARGINE SOLOSTAR 100 UNITS/ML 3 ML PEN SC SCH ×2 (08:22→21:43)
[2020-01-08] MEDS: DOCUSATE SODIUM 100 MG CAP PO SCH ×2 (08:22→21:44)
[2020-01-08] MEDS: PRAVASTATIN SOD 40 MG TAB PO SCH (08:22)
[2020-01-08] MEDS: UMECLIDINIUM/VILANTEROL 62.5/25MCG 7 PUFFS/INHALER INH SCH (08:22)
[2020-01-08] MEDS: INSULIN ASPART 100 UNITS/ML 3 ML PEN SC SCH ×4 (08:24→21:42)
--- NOTE | 2020-01-08 10:50 | XRay Report ---
XR chest 2V PA/lateral CLINICAL HISTORY: 64 years-old Female presenting with hypoxia. TECHNIQUE: PA and lateral views of the chest were obtained. COMPARISON: 01/06/2020 FINDINGS: Atherosclerosis of the aortic arch. Cardiac silhouette borderline enlarged. Resolution of prior pulmo nary vascular prominence. Minimal right mid lung band like opacity. Obscuration of the lung bases due to the large pannus. Improved aeration of the lung bases. Right basilar opacities not excluded. Hype rinflation may be present. No large effusion or pneumothorax. Osseous structures normal. IMPRESSION: 1. Limited examination due to patient body habitus. This moderately decreases diagnostic sensitivity the exam. 2. Resolved pulmonary vascular congestion. 3. Findings suggest underlying emphysema. 4. Improved aeration of the lung bases though underlying right basilar infiltrate not excluded. Cont inued follow-up advised with attempts to optimize patient positioning. ACT 112: Negative or not required by law. Electronically signed by: Chadwick Day M.D. 01/08/2020 10:49 AM
--- NOTE | 2020-01-08 14:28 | Electrocardiogram Report ---
Test Reason : Blood Pressure : / mmHG Vent. Rate : 092 BPM Atrial Rate : 092 BPM P-R Int : 154 ms QRS Dur : 084 ms QT Int : 338 ms P-R-T Axes : 053 -11 040 degrees QTc Int : 417 ms Poor data quality, interpretation may be adversely affected Normal sinus rhythm Normal ECG When compared with ECG of 16-DEC-2019 11:44, RSR' pattern in V1 is no longer Present Criteria for Septal infarct are no longer Present Confirmed by Rhett Chowdary ([id number]) on 01/08/2020 2:28:11 PM Referred By: Beatriz Baker Confirmed By:Rhett Chowdary
[2020-01-08] MEDS: BACLOFEN 10 MG TAB PO PRN (14:45)
[2020-01-08] MEDS ORDERED: LACTULOSE SYRUP 20 GM/30 ML UDC PO ONE (15:50)
--- NOTE | 2020-01-08 21:40 | Billing Data ---
Date of Service January 08, 2020 Coding Level of Care Code 12936 OBS Care - Level 3
--- NOTE | 2020-01-08 21:54 | Hospitalist Progress Note ---
Date of Service January 08, 2020 Assessment & Plan (1) Acute and chronic respiratory failure: Sheri Landeros is a 64y/o F with PMH significant for COPD, diastolic heart dysfunction, CAD, and respiratory failure that presented the ER for shortness of breath and weakness. Acute on Chronic Respiratory failure: -Likely volume overload. -May be secondary to possible acute on chronic diastolic heart failure. -BNP remains low. -COPD EXACERBATION is also a possiblity, though seems unlikely. -carolyn continue antibiotics for now and recheck procal. - patient hospitalized within the last 30 days for hypoxic respiratory failure, at that time requiring intubation - increased O2 demands on presentation as compared to previous discharge now using 6L NC (prior to last discharge pt on 4L NC) -will try to titrate this down. -discussed with intensitivist/pulmonary (no official consult), -will continue to diurese but will cut baxck on the IV lasix. Gave only one dose today. - CXR demonstrating some pulmonary vascular congestion, and b/l bibasilar airspace opacities which could represent scarring/atelectasis - pro-calcitonin negative, and no elevation in white count - Flu negative, Biofire panel Negative - continue Zyvox and Cefepime COPD: - patient on home O2 of 4L following last discharge - wean O2 as needed; maintain O2 sats between 88-92% - continue home nebulizers/inhalers - continue to monitor ROZ: - patient utilizes BiPAP at home - continue BiPAP. -However she refused this overnight, explained to patient that she should use it while she is here and at home. T2DM: - hold home oral regimen - started on SSI with Lantus - continue to monitor Diet: Carb consistent T2DM DVT ppx: SCDs Code Status: Full code (2) COPD (chronic obstructive pulmonary disease): (3) Pneumonia: (4) Obstructive sleep apnea: (5) Type 2 diabetes mellitus: Admission and Anticipated Discharge Date Admission Date: January 06, 2020 Subjective Patient reports she is breathing somewhat better. But reports feeling fatigued. She states she her sinuses are dry. Saw the patient twice. Review of Systems Review of Systems: All systems reviewed & are unremarkable except as noted in HPI & below Physical Exam Physical Exam: Constitutional: WD/WN, vitals as above Eyes: PERRL, conjunctivae normal, anicteric sclerae ENMT: external ear and nose normal, oropharynx normal Neck: normal visual inspection Respiratory: able to speak in complete sentences and symmetric chest movement; no cough Auscultation: + diminished lung sounds (lower lobes b/l); no crackles and no rales Cardiovascular: Rate/Rhythm: regular rate and regular rhythm Heart Sounds: normal S1 and normal S2; no gallop, no murmur and no cardiac rub Vessels: no JVD Extremities: + pedal edema Gastrointestinal (Abdomen): normal bowel sounds, soft, nontender, no hepatosplenomegaly Musculoskeletal: no cyanosis or clubbing, extremities motor strength 5/5 Skin: no rashes, warm and dry Neurologic: normal touch/pain/proprioception, CN's II-XI intact bilaterally, plantar reflexes intact bilaterally, moves all extremities and awake Psychiatric: A+Ox3, euthymic affect Lymphatic: no cervical or axillary lymphadenopathy Results & Data Results & Data ([facility]) Vital Signs (Past 12 Hours) Vital Signs Temp Pulse Resp BP Pulse Ox 01/08/20 18:55 98 H 18 96 01/08/20 16:26 36.6 C 103 H 22 119/70 90 01/08/20 15:05 101 H 20 97 01/08/20 11:16 96 01/08/20 11:11 110 H 20 97 PG Care Time/CCT Total # of Minutes Spent Total Time Spent with Patient: Total time spent is greater than 50% in coordination of care (as documented) at patient's floor/unit and/or counseling patient: Coding Level of Care Code 13057 Subseq Hosp Care Lvl 3 Diagnoses Acute and chronic respiratory failure J96.20 COPD (chronic obstructive pulmonary disease) J44.9 COPD type: unspecified COPD Pneumonia J18.9 Laterality: unspecified laterality Lung location: unspecified part of lung Pneumonia type: due to unspecified organism Obstructive sleep apnea G47.33 Type 2 diabetes mellitus E11.9 Time Spent (min) 35 (1) COPD (chronic obstructive pulmonary disease) COPD type: unspecified COPD Qualified Code(s): J44.9 - Chronic obstructive pulmonary disease, unspecified (2) Pneumonia Laterality: unspecified laterality Lung location: unspecified part of lung Pneumonia type: due to unspecified organism Qualified Code(s): J18.9 - Pneumonia, unspecified organism
[2020-01-08] MEDS: guaiFENesin 600 MG TABCR PO SCH (23:21)
[2020-01-09] MEDS: ALBUTEROL 0.083% NEBU SOLN 3 ML VIAL INH PRN (04:00)
[2020-01-09] MEDS: CEFEPIME 2,000 MG in SYRINGE 7.5 ML IV SCH ×2 (05:51→14:24)
[2020-01-09] MEDS: IPRATROPIUM BROMIDE NEB SOLN 0.02% 2.5 ML VIAL INH SCH ×4 (06:58→19:32)
[2020-01-09] MEDS: BUDESONIDE 0.5 MG/2 ML VIAL (PULMICORT) INH SCH ×2 (06:58→19:32)
[2020-01-09] MEDS: INSULIN GLARGINE SOLOSTAR 100 UNITS/ML 3 ML PEN SC SCH ×2 (08:30→21:47)
[2020-01-09] MEDS: DOCUSATE SODIUM 100 MG CAP PO SCH ×2 (08:42→21:47)
[2020-01-09] MEDS: PRAVASTATIN SOD 40 MG TAB PO SCH (08:43)
[2020-01-09] MEDS: PANTOprazole 40 MG TAB PO SCH (08:43)
[2020-01-09] MEDS: guaiFENesin 600 MG TABCR PO SCH ×2 (08:44→21:47)
[2020-01-09] MEDS: UMECLIDINIUM/VILANTEROL 62.5/25MCG 7 PUFFS/INHALER INH SCH (08:45)
[2020-01-09] MEDS: INSULIN ASPART 100 UNITS/ML 3 ML PEN SC SCH ×4 (08:47→21:48)
[2020-01-09] MEDS: BACLOFEN 10 MG TAB PO PRN (11:38)
[2020-01-09] MEDS: FUROSEMIDE 40 MG TAB PO SCH (12:31)
[2020-01-09 12:47] LABS: BUN Creatinine Ratio 19.7 (10-20); Calcium 9.1 mg/dl (8.5-10.1); Creatinine Clr Calc Pharmacy 69.8 ml/min; Est GFR (Non-African American) 61.3; Potassium 3.7 mmol/L (3.5-5.1)
[2020-01-09] MEDS: SIMETHICONE 80 MG CHEW PO PRN (12:55)
--- NOTE | 2020-01-09 13:28 | XRay Report ---
XR KUB/Abdomen 1 view CLINICAL HISTORY: 64 years-old Female presenting with BLOATED, abdominal pain. TECHNIQUE: Single supine view of the abdomen was obtained. COMPARISON: 12/25/[address] from 12/20/2019. FINDINGS: Cholecystectomy clips noted. Mild gaseous distention of the sigmoid colon and upper rectum. This is n ot significantly changed. Nonobstructive bowel gas pattern. No gross pneumoperitoneum. Allowing for bowel gas and stool, no calcifications to suggest nephrolithiasis. Degenerative changes of the spine. Lung bases clear. IMPRESSION: 1. Mild gaseous distention of large bowel. No evidence of obstruction. ACT 112: Negative or not required by law. Electronically signed by: Chadwick Day M.D. 01/09/2020 1:27 PM
[2020-01-09] MEDS ORDERED: OPTIRAY 320 125ml IV PRN (20:34)
--- NOTE | 2020-01-09 20:59 | CT Scan Report ---
CT ANGIOGRAPHY OF THE CHEST, PULMONARY EMBOLUS PROTOCOL CLINICAL HISTORY: Severe shortness of breath. Evaluate for pulmonary embolus. COMPARISON STUDY: Chest CT September 30, 2019 pain. Chest radiograph January 18, 2020 TECHNIQUE: Following IV administration of 118 mL of Optiray-320, helical axial images of the chest we re obtained utilizing the pulmonary embolus protocol. Maximal intensity projections and sagittal and coronal reformats were viewed on an independent 3D workstation. IV contrast was administered withou t complication. Automated exposure control was utilized for the study. A dose lowering technique wa s utilized adhering to the principles of ALARA. CT DOSE: 2129.00 mGy.cm FINDINGS: No pulmonary emboli are identified. There is no evidence for thoracic aortic dissection. T he size of the heart is normal. There is no pericardial effusion. No enlarged axillary, mediastinal o r hilar lymph nodes are present. Lungs are suboptimally assessed given respiratory motion. There is m oderate emphysema. Mild bronchial wall thickening is noted. There are scattered tree-in-bud nodules w ithin the lungs. These are most evident within the anterior segment of the right upper lobe and the r ight middle lobe. Minimal groundglass opacities are present. Subpleural opacities favor atelectasis. The central airways are patent. There is no pneumothorax or pleural effusion. Bony thorax is unremark able. IMPRESSION: 1. No pulmonary emboli identified. 2. Scattered tree-in-bud nodules and minimal groundglass opacities within lungs which favor an infect ious process such as bronchiolitis. Subpleural opacities favor atelectasis. 3. Moderate emphysema. ACT 112: Negative or not required by law. Electronically signed by: Daniel Babb M.D. 01/09/2020 8:57 PM
--- NOTE | 2020-01-09 21:25 | Ultrasound Report ---
BILATERAL LOWER EXTREMITY VENOUS DOPPLER CLINICAL HISTORY: Chest discomfort. Tachycardia. Leg pain. COMPARISON STUDY: Bilateral lower extremity venous Doppler ultrasound March 25, 2016. TECHNIQUE: Sonography of the deep venous system of the bilateral lower extremities was performed. Co mpression and augmentation were evaluated. FINDINGS: This exam was compromised given suboptimal penetration and patient's inability to tolerate compression. The bilateral common femoral, superficial femoral and popliteal veins were compressible. Augmentation was normal. The calf vessels were not well visualized on this exam. IMPRESSION: Technically difficult exam but no evidence of deep venous thrombus within the bilateral l ower extremities. ACT 112: Negative or not required by law. Electronically signed by: Daniel Babb M.D. 01/09/2020 9:24 PM
[2020-01-09 22:12] LABS: BUN Creatinine Ratio 16.5 (10-20); Blood Urea Nitrogen 17 mg/dl (7-18); Calcium 8.7 mg/dl (8.5-10.1); Carbon Dioxide 44 mmol/L (21-32); Chloride 88 mmol/L (98-107); Creatinine Clr Calc Pharmacy 67.7 ml/min; Est GFR (African American) 68.5; Est GFR (Non-African American) 59.1; Glucose 123 mg/dl (70-99); Potassium 3.8 mmol/L (3.5-5.1); Sodium 135 mmol/L (136-145); Troponin I < 0.015 ng/ml (0-0.045)
--- NOTE | 2020-01-09 22:53 | Communication Note ---
Date of Service: January 09, 2020 Called to bedside, as during nebulizer treatment with RT, patient had worsening shortness of breath, chest pressure. On arrival, patient was hypertensive, tachycardic, tachypneic, with increased O2 demands. Complaining of R sided chest pressure, no chest pain/heaviness, no radiation of pain, no perceived worsening of lower extremity edema. Reported that patient had refused to utilize SCDs over the last couple days. Based off these changes, ordered a stat CT chest PE protocol, b/l venous dopplers of lower extremities, EKG, Troponin, and BMP. CT Chest did not demonstrate evidence of pulmonary emboli Dopplers did not demonstrate evidence of venous thrombus in lower extremities but was limited due to patient discomfort EKG unchanged from admission Troponin negative (<0.015) BMP with elevated CO2 to 44, consistent with previous CO2 levels during this admission Resident Activity Tracking Resident Involvement: Resident Care Provided Care Provided: Adult [facility]
--- NOTE | 2020-01-09 23:01 | Hospitalist Progress Note ---
Date of Service January 09, 2020 Assessment & Plan (1) Acute and chronic respiratory failure: Sheri Landeros is a 64y/o F with PMH significant for COPD, diastolic heart dysfunction, CAD, and respiratory failure that presented the ER for shortness of breath and weakness. Acute on Chronic Respiratory failure: -Likely volume overload. -May be secondary to possible acute on chronic diastolic heart failure. -BNP remains low. -COPD EXACERBATION is also a possiblity, though seems unlikely. -procal is negative. will stop antibiotics - patient hospitalized within the last 30 days for hypoxic respiratory failure, at that time requiring intubation - increased O2 demands on presentation as compared to previous discharge now using 6L NC (prior to last discharge pt on 4L NC) -However it appears that she normally is on 6 liters at home. -discussed with intensitivist/pulmonary (no official consult), -responded to IV lasix. - Now on PO lasix. - CXR demonstrating some pulmonary vascular congestion, and b/l bibasilar airspace opacities which could represent scarring/atelectasis - pro-calcitonin negative, and no elevation in white count - Flu negative, Biofire panel Negative - continue Zyvox and Cefepime COPD: - patient on home O2 of 4L following last discharge - wean O2 as needed; maintain O2 sats between 88-92% - continue home nebulizers/inhalers - continue to monitor ROZ: - patient utilizes BiPAP at home - continue BiPAP. -However she refused this overnight. T2DM: - hold home oral regimen - started on SSI with Lantus - continue to monitor Diet: Carb consistent T2DM DVT ppx: SCDs Code Status: Full code (2) COPD (chronic obstructive pulmonary disease): (3) Pneumonia: (4) Obstructive sleep apnea: (5) Type 2 diabetes mellitus: Admission and Anticipated Discharge Date Admission Date: January 08, 2020 Subjective Patient reports mild improvement. She states that she is not quite back to her baseline. She still continues to feel weak. Her other main concern is that she has felt constipated. Today she has had a BM and feels less distended. Review of Systems Review of Systems: All systems reviewed & are unremarkable except as noted in HPI & below Physical Exam Physical Exam: Constitutional: WD/WN, vitals as above Eyes: PERRL, conjunctivae normal, anicteric sclerae ENMT: external ear and nose normal, oropharynx normal Neck: normal visual inspection Respiratory: able to speak in complete sentences and symmetric chest movement; no cough Auscultation: + diminished lung sounds (lower lobes b/l); no crackles and no rales Cardiovascular: Rate/Rhythm: regular rate and regular rhythm Heart Sounds: normal S1 and normal S2; no gallop, no murmur and no cardiac rub Vessels: no JVD Extremities: + pedal edema Gastrointestinal (Abdomen): normal bowel sounds, soft, nontender, no hepatosplenomegaly Musculoskeletal: no cyanosis or clubbing, extremities motor strength 5/5 Skin: no rashes, warm and dry Neurologic: normal touch/pain/proprioception, CN's II-XI intact bilaterally, plantar reflexes intact bilaterally, moves all extremities and awake Psychiatric: A+Ox3, euthymic affect Lymphatic: no cervical or axillary lymphadenopathy Results & Data Results & Data ([facility]) Vital Signs (Past 12 Hours) Vital Signs Temp Pulse Pulse Resp BP BP Pulse Ox 01/09/20 22:29 37.3 C 93 H 24 161/81 H 96 01/09/20 19:59 92 H 18 99 01/09/20 16:00 36.7 C 105 H 20 119/70 93 01/09/20 15:19 90 18 96 01/09/20 11:06 94 H 18 97 PG Care Time/CCT Total # of Minutes Spent Total Time Spent with Patient: Total time spent is greater than 50% in coordination of care (as documented) at patient's floor/unit and/or counseling patient: Coding Level of Care Code 05781 Subseq Hosp Care Lvl 2 Diagnoses Acute and chronic respiratory failure J96.20 COPD (chronic obstructive pulmonary disease) J44.9 COPD type: unspecified COPD Pneumonia J18.9 Laterality: unspecified laterality Lung location: unspecified part of lung Pneumonia type: due to unspecified organism Obstructive sleep apnea G47.33 Type 2 diabetes mellitus E11.9 Time Spent (min) 25 (1) COPD (chronic obstructive pulmonary disease) COPD type: unspecified COPD Qualified Code(s): J44.9 - Chronic obstructive pulmonary disease, unspecified (2) Pneumonia Laterality: unspecified laterality Lung location: unspecified part of lung Pneumonia type: due to unspecified organism Qualified Code(s): J18.9 - Pneumonia, unspecified organism
[2020-01-10] MEDS: IPRATROPIUM BROMIDE NEB SOLN 0.02% 2.5 ML VIAL INH SCH ×4 (07:29→19:33)
[2020-01-10] MEDS: BUDESONIDE 0.5 MG/2 ML VIAL (PULMICORT) INH SCH ×2 (07:29→19:02)
[2020-01-10] MEDS: UMECLIDINIUM/VILANTEROL 62.5/25MCG 7 PUFFS/INHALER INH SCH (08:15)
[2020-01-10] MEDS: FUROSEMIDE 40 MG TAB PO SCH (08:15)
[2020-01-10] MEDS: guaiFENesin 600 MG TABCR PO SCH ×2 (08:15→21:52)
[2020-01-10] MEDS: PANTOprazole 40 MG TAB PO SCH (08:15)
[2020-01-10] MEDS: DOCUSATE SODIUM 100 MG CAP PO SCH ×2 (08:16→21:51)
[2020-01-10] MEDS: PRAVASTATIN SOD 40 MG TAB PO SCH (08:16)
[2020-01-10] MEDS: INSULIN GLARGINE SOLOSTAR 100 UNITS/ML 3 ML PEN SC SCH ×2 (08:17→21:47)
[2020-01-10] MEDS: INSULIN ASPART 100 UNITS/ML 3 ML PEN SC SCH ×4 (08:17→21:48)
[2020-01-10] MEDS: SIMETHICONE 80 MG CHEW PO PRN (08:22)
[2020-01-10] MEDS: BACLOFEN 10 MG TAB PO PRN (10:59)
--- NOTE | 2020-01-10 15:39 | Electrocardiogram Report ---
Test Reason : Blood Pressure : / mmHG Vent. Rate : 105 BPM Atrial Rate : 105 BPM P-R Int : 132 ms QRS Dur : 086 ms QT Int : 334 ms P-R-T Axes : 050 009 082 degrees QTc Int : 441 ms Sinus tachycardia Septal infarct , age undetermined Abnormal ECG When compared with ECG of 06-JAN-2020 20:05, No significant change was found Confirmed by Rhett Chowdary ([id number]) on 01/10/2020 3:39:15 PM Referred By: Beatriz Baker Confirmed By:Rhett Chowdary
[2020-01-10] MEDS: ACETYLCYSTEINE 20% INHAL SOLN 4ML ***DISPENSED BY RESP. INH SCH (19:01)
[2020-01-10] MEDS: LEVALBUTEROL HCL 1.25 MG/3 ML NEB NEB SCH (19:33)
--- NOTE | 2020-01-10 20:17 | XRay Report ---
SINGLE VIEW CHEST CLINICAL HISTORY: Hypoxia. FINDINGS: 2 AP, portable, upright chest radiographs are compared to study dated 01/08/2020 and correlat ed with chest CT dated 01/09/2020. The examination is degraded by portable technique, large body habitu s, and patient rotation. The cardiomediastinal silhouette is unremarkable noting atherosclerotic calc ification of the thoracic aorta. Emphysema and chronic interstitial thickening are similar to previou s. There is bibasilar scarring/atelectasis. No airspace consolidation or large pleural effusion is id entified. No pneumothorax is seen. The skeletal structures are osteopenic. The bony thorax is grossly intact. IMPRESSION: Emphysematous change with no acute cardiopulmonary abnormality. ACT 112: Negative or not required by law. Electronically signed by: Lexa Mcgraw M.D. 01/10/2020 8:16 PM
--- NOTE | 2020-01-10 23:11 | Hospitalist Progress Note ---
Date of Service January 10, 2020 Assessment & Plan (1) Acute and chronic respiratory failure: Sheri Landeros is a 64y/o F with PMH significant for COPD, diastolic heart dysfunction, CAD, and respiratory failure that presented the ER for shortness of breath and weakness. Acute on Chronic Respiratory failure: -Likely volume overload. -May be secondary to possible acute on chronic diastolic heart failure. -BNP was low but did have a peak later in the hospital stay. It may be falsely low given her obesity. -COPD EXACERBATION is also a possiblity, though seems unlikely. -procal is negative. will stop antibiotics - patient hospitalized within the last 30 days for hypoxic respiratory failure, at that time requiring intubation - increased O2 demands on presentation as compared to previous discharge now using 6L NC (prior to last discharge pt on 4L NC) -However it appears that she normally is on 6 liters at home. -discussed with utility gelatin maker/pulmonary (no official consult), -responded to IV lasix. - Now on PO lasix. - CXR demonstrating some pulmonary vascular congestion, and b/l bibasilar airspace opacities which could represent scarring/atelectasis - pro-calcitonin negative, and no elevation in white count - Flu negative, Biofire panel Negative - stop antibiotics. -Added mucomyst and placed on flutter. COPD: - patient on home O2 of 4L following last discharge - wean O2 as needed; maintain O2 sats between 88-92% - continue home nebulizers/inhalers - continue to monitor ROZ: - patient utilizes BiPAP at home - continue BiPAP. -However she refused each night BIPAP. T2DM: - hold home oral regimen - started on SSI with Lantus - continue to monitor Diet: Carb consistent T2DM DVT ppx: SCDs Code Status: Full code (2) COPD (chronic obstructive pulmonary disease): (3) Pneumonia: (4) Obstructive sleep apnea: (5) Type 2 diabetes mellitus: Admission and Anticipated Discharge Date Admission Date: January 08, 2020 Subjective Patient reports no new symptoms. She still feels somehwat short of breath. And is continuing to have difficulty moving her BMs. Review of Systems Review of Systems: All systems reviewed & are unremarkable except as noted in HPI & below Physical Exam Physical Exam: Constitutional: WD/WN, vitals as above Eyes: PERRL, conjunctivae normal, anicteric sclerae ENMT: external ear and nose normal, oropharynx normal Neck: normal visual inspection Respiratory: able to speak in complete sentences and symmetric chest movement; no cough Auscultation: + diminished lung sounds (lower lobes b/l); no crackles and no rales Cardiovascular: Rate/Rhythm: regular rate and regular rhythm Heart Sounds: normal S1 and normal S2; no gallop, no murmur and no cardiac rub Vessels: no JVD Extremities: + pedal edema Gastrointestinal (Abdomen): normal bowel sounds, soft, nontender, no hepatosplenomegaly Musculoskeletal: no cyanosis or clubbing, extremities motor strength 5/5 Skin: no rashes, warm and dry Neurologic: normal touch/pain/proprioception, CN's II-XI intact bilaterally, plantar reflexes intact bilaterally, moves all extremities and awake Psychiatric: A+Ox3, euthymic affect Lymphatic: no cervical or axillary lymphadenopathy Results & Data Results & Data ([facility]) Vital Signs (Past 12 Hours) Vital Signs Temp Pulse Pulse Resp BP BP Pulse Ox 01/10/20 20:58 36.6 C 97 H 22 163/84 H 90 01/10/20 19:56 116 H 24 80 L 01/10/20 19:02 95 H 16 96 01/10/20 16:48 118/79 01/10/20 16:00 88 01/10/20 15:49 37.0 C 99 H 20 182/89 H 94 01/10/20 11:12 91 PG Care Time/CCT Total # of Minutes Spent Total Time Spent with Patient: Total time spent is greater than 50% in coordination of care (as documented) at patient's floor/unit and/or counseling patient: Coding Level of Care Code 59418 Subseq Hosp Care Lvl 2 Diagnoses Acute and chronic respiratory failure J96.20 COPD (chronic obstructive pulmonary disease) J44.9 COPD type: unspecified COPD Pneumonia J18.9 Laterality: unspecified laterality Lung location: unspecified part of lung Pneumonia type: due to unspecified organism Obstructive sleep apnea G47.33 Type 2 diabetes mellitus E11.9 Time Spent (min) 25 (1) COPD (chronic obstructive pulmonary disease) COPD type: unspecified COPD Qualified Code(s): J44.9 - Chronic obstructive pulmonary disease, unspecified (2) Pneumonia Laterality: unspecified laterality Lung location: unspecified part of lung Pneumonia type: due to unspecified organism Qualified Code(s): J18.9 - Pneumonia, unspecified organism
[2020-01-11] MEDS: LEVALBUTEROL HCL 1.25 MG/3 ML NEB NEB SCH ×4 (01:33→19:46)
[2020-01-11] MEDS: ACETYLCYSTEINE 20% INHAL SOLN 4ML ***DISPENSED BY RESP. INH SCH ×2 (07:01→19:02)
[2020-01-11] MEDS: IPRATROPIUM BROMIDE NEB SOLN 0.02% 2.5 ML VIAL INH SCH ×4 (07:02→19:46)
[2020-01-11] MEDS: BUDESONIDE 0.5 MG/2 ML VIAL (PULMICORT) INH SCH ×2 (07:03→19:02)
[2020-01-11] MEDS: CARBOHYDRATES FOR HYPOGLYCEMIA PO PRN ×3 (08:05→12:18)
[2020-01-11] MEDS: guaiFENesin 600 MG TABCR PO SCH ×2 (08:06→21:03)
[2020-01-11] MEDS: UMECLIDINIUM/VILANTEROL 62.5/25MCG 7 PUFFS/INHALER INH SCH (08:06)
[2020-01-11] MEDS: DOCUSATE SODIUM 100 MG CAP PO SCH ×2 (08:06→21:03)
[2020-01-11] MEDS: FUROSEMIDE 40 MG TAB PO SCH (08:06)
[2020-01-11] MEDS: PANTOprazole 40 MG TAB PO SCH (08:07)
[2020-01-11] MEDS: PRAVASTATIN SOD 40 MG TAB PO SCH (08:07)
[2020-01-11] MEDS: INSULIN GLARGINE SOLOSTAR 100 UNITS/ML 3 ML PEN SC SCH (09:01)
[2020-01-11] MEDS: INSULIN ASPART 100 UNITS/ML 3 ML PEN SC SCH ×4 (09:01→20:59)
[2020-01-11 15:49] LABS: Hematocrit (blood only) 37.2 % (37-47); Hemoglobin 11.5 g/dL (12.0-16.0); Mean Corpuscular Hgb Conc 30.9 g/dL (32-36); Mean Corpuscular Volume 90.5 fL (80-100); Mean Platelet Volume 9.3 fL (7.4-10.4); Platelet Count 150 K/uL (130-400); RDW Coefficient of Variation 14.3 % (11.5-14.5); RDW Standard Deviation 47.5 fL (36.4-46.3); Red Blood Count 4.11 M/uL (4.2-5.4); White Blood Count 8.34 K/uL (4.8-10.8)
[2020-01-11] MEDS ORDERED: PHARMACY GLYCEMIC MGMT CONSULT SCH (15:56)
--- NOTE | 2020-01-11 16:31 | Pharmacy Report ---
Glycemic Control Consultation - Date of Service January 11, 2020 - Scope Scope: Glycemic Pharmacist consulted for glycemic control and to write orders per [facility] inpatient glycemic control protocol. - Objective Weight: 123 kg [place] BSG (last 24hrs): 01/10/20 01/10/20 01/11/20 16:43 20:19 07:57 POC Glucose 102 H 154 H 50 L* 01/11/20 01/11/20 01/11/20 07:59 08:23 08:43 POC Glucose 50 L* 69 L* 109 H 01/11/20 01/11/20 01/11/20 12:06 12:10 12:35 POC Glucose 64 L* 63 L* 72 - Recent Pertinent Medications Outpatient Anti-diabetic Regimen: * Metformin 1gram PO Daily * A1c = 6 % 12/17/19 The patient is currently receiving: * Basal insulin: Lantus 15 units every 12 hours * Correctional Insulin: Novolog Correction per scale ACHS Goal Range: Low 100 mg/dL - High 140 mg/dL Correction Factor: 20 mg/dL/unit * Prandial insulin: Per carb ratio of 1 unit per 10 grams CHO consumed * Oral Agents: on hold Risk Factors for Insulin Resistance: * Steroids: Solu-medrol 125mg IV x 1 dose on 01/05 * Infection: Pneumonia, IV Levaquin * Diet: Type 2 DM - Assessment & Plan Assessment & Plan: ASSESSMENT: * 64 year old female admitted on 01/06/20 with SOB, COPD, acute on chronic respiratory failure, and pneumonia. * Patient received one dose on IV Solu-Medrol on admission. Patient with 2 episodes of hypoglycemia today, requires reductions in basal and bolus t herapy. * Patient did not require any insulin last admission a few weeks ago, but was also NPO at times and had minimal PO intake. May consider cutting basal completely if blood sugars continue to trend low. PLAN FOR INPATIENT GLYCEMIC CONTROL: * Continue holding outpatient oral diabetes medications * Basal insulin - DECREASE * Lantus 13 units SQ daily * Bolus insulin * NovoLog per scale ACHS or Q6hrs while NPO * Goal Range: Low 110 mg/dL - High 140 mg/dL * LOOSEN: Correction Factor: 30 mg/dL/unit * LOOSEN: Nutritional / Prandial insulin per carb ratio of 1 unit per 12 grams CHO consumed * Please note that the plan above was derived based on current level of insulin resistance and hospital stress. These recommendations are appropriate for inpatient admission only. Plan of care upon discharge will need to be reassessed to avoid potential outpatient hypo/hyperglycemia. Thank you.
[2020-01-11] MEDS: predniSONE 20 MG TAB PO SCH (16:32)
[2020-01-11] MEDS: LEVOFLOXACIN/D5W 750 MG/150 ML BAG IV SCH (16:32)
[2020-01-11 16:48] LABS: BUN Creatinine Ratio 16.9 (10-20); Calcium 9.1 mg/dl (8.5-10.1); Creatinine Clr Calc Pharmacy 84.7 ml/min; Est GFR (African American) 89.7; Est GFR (Non-African American) 77.4; Potassium 3.6 mmol/L (3.5-5.1)
[2020-01-11] MEDS ORDERED: INSULIN GLARGINE SOLOSTAR 100 UNITS/ML 3 ML PEN SC SCH (21:00)
[2020-01-11] MEDS: BACLOFEN 10 MG TAB PO PRN (21:32)
--- NOTE | 2020-01-11 22:36 | Hospitalist Progress Note ---
Date of Service January 11, 2020 Assessment & Plan (1) Acute and chronic respiratory failure: Sheri Landeros is a 64y/o F with PMH significant for COPD, diastolic heart dysfunction, CAD, and respiratory failure that presented the ER for shortness of breath and weakness. Acute on Chronic Respiratory failure: -Likely volume overload. -May be secondary to possible acute on chronic diastolic heart failure. -BNP was low but did have a peak later in the hospital stay. It may have been falsely low given her obesity. -Initlaly COPD exacerbation was unlikely, but will now treat with levaquin and steroids. - patient hospitalized within the last 30 days for hypoxic respiratory failure, at that time requiring intubation - increased O2 demands on presentation as compared to previous discharge now using 6L NC (prior to last discharge pt on 4L NC) -However it appears that she normally is on 6 liters at home. -discussed with marketing program manager/pulmonary (no official consult), -responded to IV lasix. - Now on PO lasix. - CXR demonstrating some pulmonary vascular congestion, and b/l bibasilar airspace opacities which could represent scarring/atelectasis Ordered sputum culture. - Flu negative, Biofire panel Negative - stop antibiotics. -on mucomyst and placed on flutter. -Added chest percussion therapy COPD: - patient on home O2 of 4L following last discharge - wean O2 as needed; maintain O2 sats between 88-92% - continue home nebulizers/inhalers - continue to monitor ROZ: - patient utilizes BiPAP at home - continue BiPAP. -However she refused each night BIPAP. T2DM: - hold home oral regimen - started on SSI with Lantus - continue to monitor Diet: Carb consistent T2DM DVT ppx: SCDs Code Status: Full code (2) COPD (chronic obstructive pulmonary disease): (3) Pneumonia: (4) Obstructive sleep apnea: (5) Type 2 diabetes mellitus: Admission and Anticipated Discharge Date Admission Date: January 08, 2020 Subjective 64 yo female continues to not feel like her normal self. She still reports feeling SOB. Review of Systems Review of Systems: All systems reviewed & are unremarkable except as noted in HPI & below Physical Exam Physical Exam: Constitutional: WD/WN, vitals as above Eyes: PERRL, conjunctivae normal, anicteric sclerae ENMT: external ear and nose normal, oropharynx normal Neck: normal visual inspection Respiratory: able to speak in complete sentences and symmetric chest movement; no cough Auscultation: + diminished lung sounds (lower lobes b/l); no crackles and no rales Cardiovascular: Rate/Rhythm: regular rate and regular rhythm Heart Sounds: normal S1 and normal S2; no gallop, no murmur and no cardiac rub Vessels: no JVD Extremities: + pedal edema Gastrointestinal (Abdomen): normal bowel sounds, soft, nontender, no hepatosplenomegaly Musculoskeletal: no cyanosis or clubbing, extremities motor strength 5/5 Skin: no rashes, warm and dry Neurologic: normal touch/pain/proprioception, CN's II-XI intact bilaterally, plantar reflexes intact bilaterally, moves all extremities and awake Psychiatric: A+Ox3, euthymic affect Lymphatic: no cervical or axillary lymphadenopathy Results & Data Results & Data ([facility]) Vital Signs (Past 12 Hours) Vital Signs Temp Pulse Pulse Resp BP BP Pulse Ox 01/11/20 19:02 101 H 16 96 01/11/20 17:39 106 H 01/11/20 16:44 130/87 01/11/20 16:17 36.7 C 98 H 20 190/75 H 176/81 H 96 PG Care Time/CCT Total # of Minutes Spent Total Time Spent with Patient: Total time spent is greater than 50% in coordination of care (as documented) at patient's floor/unit and/or counseling patient: Coding Level of Care Code 50283 Subseq Hosp Care Lvl 3 Diagnoses Acute and chronic respiratory failure J96.20 COPD (chronic obstructive pulmonary disease) J44.9 COPD type: unspecified COPD Pneumonia J18.9 Laterality: unspecified laterality Lung location: unspecified part of lung Pneumonia type: due to unspecified organism Obstructive sleep apnea G47.33 Type 2 diabetes mellitus E11.9 Time Spent (min) 35 (1) COPD (chronic obstructive pulmonary disease) COPD type: unspecified COPD Qualified Code(s): J44.9 - Chronic obstructive pulmonary disease, unspecified (2) Pneumonia Laterality: unspecified laterality Lung location: unspecified part of lung Pneumonia type: due to unspecified organism Qualified Code(s): J18.9 - Pneumonia, unspecified organism
[2020-01-12] MEDS: LEVALBUTEROL HCL 1.25 MG/3 ML NEB NEB SCH ×4 (00:51→19:36)
[2020-01-12] MEDS: BUDESONIDE 0.5 MG/2 ML VIAL (PULMICORT) INH SCH ×2 (06:03→19:27)
[2020-01-12] MEDS: ACETYLCYSTEINE 20% INHAL SOLN 4ML ***DISPENSED BY RESP. INH SCH ×2 (06:03→19:36)
[2020-01-12] MEDS: IPRATROPIUM BROMIDE NEB SOLN 0.02% 2.5 ML VIAL INH SCH ×4 (06:09→19:26)
[2020-01-12] MEDS: predniSONE 20 MG TAB PO SCH (07:41)
[2020-01-12] MEDS: PANTOprazole 40 MG TAB PO SCH (07:41)
[2020-01-12] MEDS: PRAVASTATIN SOD 40 MG TAB PO SCH (07:41)
[2020-01-12] MEDS: FUROSEMIDE 40 MG TAB PO SCH (07:41)
[2020-01-12] MEDS: guaiFENesin 600 MG TABCR PO SCH ×2 (07:42→21:38)
[2020-01-12] MEDS: DOCUSATE SODIUM 100 MG CAP PO SCH ×2 (07:42→21:39)
[2020-01-12] MEDS: UMECLIDINIUM/VILANTEROL 62.5/25MCG 7 PUFFS/INHALER INH SCH (07:42)
[2020-01-12] MEDS ORDERED: NovoLIN-N (NPH) PER UNIT CHARGE SQ ONE (08:00)
[2020-01-12] MEDS: INSULIN ASPART 100 UNITS/ML 3 ML PEN SC SCH ×4 (08:41→21:37)
[2020-01-12] MEDS ORDERED: INSULIN GLARGINE SOLOSTAR 100 UNITS/ML 3 ML PEN SC SCH (09:00)
--- NOTE | 2020-01-12 10:28 | Pharmacy Report ---
Pharmacy Glycemic Short Note 2 - Date of Service January 12, 2020 - Glycemic Short BSG Results (Last 24 hours): 01/11/20 01/11/20 01/11/20 12:06 12:10 12:35 Glucose POC Glucose 64 L* 63 L* 72 01/11/20 01/11/20 01/11/20 15:36 16:44 20:53 Glucose 122 H POC Glucose 102 H 235 H 01/12/20 07:36 Glucose POC Glucose 145 H OUTPATIENT ANTIDIABETIC REGIMEN: * Metformin 1 g PO daily * A1c = 6.0% on 12/17/19 ASSESSMENT: 01/11: * Patient with minimal PO intake yesterday; received Prednisone 40 mg in the afternoon, post-prandial BSGs elevated secondary to this. * BSGs ranged 50-235 mg/dL yesterday, received 15 units basal insulin and 4 units bolus insulin (TDD = 19 units). * Patient continuing on Prednisone 40 mg daily for now. Fasting BSG 145 mg/dL this AM. * Changing Lantus to NPH this AM to more closely mimic the pharmacokinetics of oral prednisone. Will not adjust correctional/prandial insulin for now. 01/10: * 64 year old female admitted on 01/06/20 with SOB, COPD, acute on chronic respiratory failure, and pneumonia. * Patient received one dose on IV Solu-Medrol on admission. Patient with 2 episodes of hypoglycemia today, requires reductions in basal and bolus therapy. * Patient did not require any insulin last admission a few weeks ago, but was also NPO at times and had minimal PO intake. May consider cutting basal completely if blood sugars continue to trend low. PLAN FOR INPATIENT GLYCEMIC CONTROL: * Hold outpatient oral diabetes medications * Basal insulin - changed * NPH 15 units SQ x 1 * Bolus insulin * NovoLog per scale ACHS or Q6hrs while NPO * Goal Range: Low 110 mg/dL - High 140 mg/dL * Correction Factor: 30 mg/dL/unit * Nutritional / Prandial insulin per carb ratio of 1 unit per 12 grams CHO consumed PLAN FOR DISCHARGE: * Patient with good outpatient T2DM control. Continue metformin upon discharge.
[2020-01-12] MEDS: LEVOFLOXACIN/D5W 750 MG/150 ML BAG IV SCH (16:37)
--- NOTE | 2020-01-12 23:04 | Hospitalist Progress Note ---
Date of Service January 12, 2020 Assessment & Plan (1) Acute and chronic respiratory failure: Sheri Landeros is a 64y/o F with PMH significant for COPD, diastolic heart dysfunction, CAD, and respiratory failure that presented the ER for shortness of breath and weakness. Acute on Chronic Respiratory failure: -Likely volume overload. -May be secondary to possible acute on chronic diastolic heart failure. -BNP was low but did have a peak later in the hospital stay. It may have been falsely low given her obesity. -Initlaly COPD exacerbation was unlikely, but will now treat with levaquin and steroids. - patient hospitalized within the last 30 days for hypoxic respiratory failure, at that time requiring intubation (previous hospital stay) - Initially apeared that she had increased O2 demands on presentation as compared to previous discharge now using 6L NC (prior to last discharge pt on 4L NC) -However her baseline o2 requirements normally at home is 6 liters. -discussed with scientist/engineer/pulmonary (no official consult), -responded to IV lasix. - Now on PO lasix. But she is still not at her baseline. - CXR demonstrating some pulmonary vascular congestion, and b/l bibasilar airspace opacities which could represent scarring/atelectasis Ordered sputum culture. - Flu negative, Biofire panel Negative - will also treat for COPD exacerbation, treatmnet started on 01/10: levaquin and steroids. -on mucomyst and on flutter. -Added chest percussion therapy COPD: - patient on home O2 of 4L following last discharge - wean O2 as needed; maintain O2 sats between 88-92% - continue home nebulizers/inhalers - continue to monitor ROZ: - patient utilizes BiPAP at home - continue BiPAP. -However she refused each night BIPAP she has been here. T2DM: - hold home oral regimen - started on SSI with Lantus - continue to monitor Diet: Carb consistent T2DM DVT ppx: SCDs Code Status: Full code (2) COPD (chronic obstructive pulmonary disease): (3) Pneumonia: (4) Obstructive sleep apnea: (5) Type 2 diabetes mellitus: Admission and Anticipated Discharge Date Admission Date: January 08, 2020 Subjective Patient reports feeling somewhat today. But again she is not at her baseline and she states she does not feel strong enough to be discharged. Review of Systems Review of Systems: All systems reviewed & are unremarkable except as noted in HPI & below Physical Exam Physical Exam: Constitutional: WD/WN, vitals as above Eyes: PERRL, conjunctivae normal, anicteric sclerae ENMT: external ear and nose normal, oropharynx normal Neck: normal visual inspection Respiratory: able to speak in complete sentences and symmetric chest movement; no cough Auscultation: + diminished lung sounds (lower lobes b/l); no crackles and no rales; no wheezing. Cardiovascular: Rate/Rhythm: regular rate and regular rhythm Heart Sounds: normal S1 and normal S2; no gallop, no murmur and no cardiac rub Vessels: no JVD Extremities: + pedal edema Gastrointestinal (Abdomen): normal bowel sounds, soft, nontender, no hepatosplenomegaly Musculoskeletal: no cyanosis or clubbing, extremities motor strength 5/5 Skin: no rashes, warm and dry Neurologic: normal touch/pain/proprioception, CN's II-XI intact bilaterally, plantar reflexes intact bilaterally, moves all extremities and awake Psychiatric: A+Ox3, euthymic affect Lymphatic: no cervical or axillary lymphadenopathy Results & Data Results & Data ([facility]) Vital Signs (Past 12 Hours) Vital Signs Temp Pulse Pulse Resp BP Pulse Ox 01/12/20 16:02 94 H 16 96 01/12/20 15:22 93 H 01/12/20 15:13 37.3 C 98 H 17 180/80 H 92 PG Care Time/CCT Total # of Minutes Spent Total Time Spent with Patient: Total time spent is greater than 50% in coordination of care (as documented) at patient's floor/unit and/or counseling patient: Coding Level of Care Code 15281 Subseq Hosp Care Lvl 2 Diagnoses Acute and chronic respiratory failure J96.20 COPD (chronic obstructive pulmonary disease) J44.9 COPD type: unspecified COPD Pneumonia J18.9 Laterality: unspecified laterality Lung location: unspecified part of lung Pneumonia type: due to unspecified organism Obstructive sleep apnea G47.33 Type 2 diabetes mellitus E11.9 Time Spent (min) 25 (1) COPD (chronic obstructive pulmonary disease) COPD type: unspecified COPD Qualified Code(s): J44.9 - Chronic obstructive pulmonary disease, unspecified (2) Pneumonia Laterality: unspecified laterality Lung location: unspecified part of lung Pneumonia type: due to unspecified organism Qualified Code(s): J18.9 - Pneumonia, unspecified organism
[2020-01-13] MEDS: BUDESONIDE 0.5 MG/2 ML VIAL (PULMICORT) INH SCH ×2 (07:15→19:07)
[2020-01-13] MEDS: LEVALBUTEROL HCL 1.25 MG/3 ML NEB NEB SCH ×4 (07:15→19:07)
[2020-01-13] MEDS: ACETYLCYSTEINE 20% INHAL SOLN 4ML ***DISPENSED BY RESP. INH SCH ×2 (07:15→19:07)
[2020-01-13] MEDS: IPRATROPIUM BROMIDE NEB SOLN 0.02% 2.5 ML VIAL INH SCH ×4 (07:15→19:07)
[2020-01-13] MEDS ORDERED: NovoLIN-N (NPH) PER UNIT CHARGE SQ ONE (08:30)
[2020-01-13] MEDS: UMECLIDINIUM/VILANTEROL 62.5/25MCG 7 PUFFS/INHALER INH SCH (08:53)
[2020-01-13] MEDS: PRAVASTATIN SOD 40 MG TAB PO SCH (08:54)
[2020-01-13] MEDS: PANTOprazole 40 MG TAB PO SCH (08:54)
[2020-01-13] MEDS: predniSONE 20 MG TAB PO SCH (08:54)
[2020-01-13] MEDS: FUROSEMIDE 40 MG TAB PO SCH (08:55)
[2020-01-13] MEDS: DOCUSATE SODIUM 100 MG CAP PO SCH ×2 (08:55→21:05)
[2020-01-13] MEDS: guaiFENesin 600 MG TABCR PO SCH ×2 (08:55→21:05)
[2020-01-13] MEDS: INSULIN ASPART 100 UNITS/ML 3 ML PEN SC SCH ×4 (08:56→21:06)
[2020-01-13] MEDS: SIMETHICONE 80 MG CHEW PO PRN (08:56)
[2020-01-13] MEDS: BACLOFEN 10 MG TAB PO PRN (09:35)
--- NOTE | 2020-01-13 10:08 | Pharmacy Report ---
Pharmacy Glycemic Short Note 2 - Date of Service January 13, 2020 - Glycemic Short BSG Results (Last 24 hours): 01/12/20 01/12/20 01/12/20 11:37 16:28 20:32 POC Glucose 193 H 166 H 187 H 01/13/20 07:51 POC Glucose 106 H OUTPATIENT ANTIDIABETIC REGIMEN: * Metformin 1 g PO daily * A1c = 6.0% on 12/17/19 Stressors * Steroids: prednisone 40 mg po daily * Infection: COPD exacerbation/PNA, on levofloxacin * Diet: T2DM ASSESSMENT: * 64 year old female admitted on 01/06/20 with SOB, COPD, acute on chronic respiratory failure, and pneumonia * No changes to stressors noted today * NPH being utilized as basal insulin 2nd pharmacokinetic similarities to AM prednisone-induced insulin resistance * AM fasting BSG at/near goal - will continue NPH at same dose * PO intake improved/increased yesterday. Two post-prandial BSG's >180 mg/dL in response - will tighten Novolog CHO ratio PLAN FOR INPATIENT GLYCEMIC CONTROL: * Hold outpatient oral diabetes medications * Basal insulin * NPH 15 units SQ x 1 * Bolus insulin * NovoLog per scale ACHS or Q6hrs while NPO * Goal Range: Low 110 mg/dL - High 140 mg/dL * Correction Factor: 30 mg/dL/unit * Nutritional / Prandial insulin per carb ratio of 1 unit per 10 grams CHO consumed PLAN FOR DISCHARGE: * Patient with good outpatient T2DM control. Continue metformin upon discharge.
[2020-01-13] MEDS ORDERED: LACTULOSE SYRUP 30 GM/45 ML UDP PO STA (10:35)
--- NOTE | 2020-01-13 11:05 | Hospitalist Progress Note ---
Date of Service January 13, 2020 Assessment & Plan (1) Acute and chronic respiratory failure: Sheri Landeros is a 64y/o F with PMH significant for COPD, diastolic heart dysfunction, CAD, and respiratory failure that presented the ER for shortness of breath and weakness. Acute on Chronic Respiratory failure: -probably mutlifactorial between COPD and HFpEF -on baseline O2, by symptoms she notes that she feels as good as she has in a long time -continue current care --> f/u BMP given metabolic alkalosis - suspect predominantly from compensation from chronic hypercapnic respiratory failure w her COPD, but possibly also an element of contraction alkalosis COPD: - patient on home O2 chronically - continue O2 as needed; maintain O2 sats between 88-92% - continue home nebulizers/inhalers - continue to monitor Constipation - discussed management - she prefers lactulose over miralax - ordered 30g now then 20g QID prn refractory constipation - hopefully will improve - then can send home w a bowel regimen ROZ: - patient utilizes BiPAP at home - continue BiPAP as she tolerates/allows T2DM: - hold home oral regimen - continue SSI with Lantus - continue to monitor - sugars have been acceptable Diet: Carb consistent T2DM DVT ppx: SCDs Code Status: Full code (2) COPD (chronic obstructive pulmonary disease): (3) Pneumonia: (4) Obstructive sleep apnea: (5) Type 2 diabetes mellitus: Admission and Anticipated Discharge Date Admission Date: January 06, 2020 Subjective notes that her breathing feels about as good as it has in a long time. main issue is abdominal bloating - notes a little gas and maybe a tiny BM yesterday but no effective BM for a while - feels like if her abdominal bloating goes down then she would feel better enough to go home. no f/c/s no significant cough no significant sob Review of Systems Review of Systems: All systems reviewed & are unremarkable except as noted in HPI & below Physical Exam Physical Exam: gen aao pleasant fatigued appearing otherwise nad heent nc at mmm breathing unlabored no accessory muscles good effort abd visibly bloated skin no rashes no pallor or icterus neuro cn 2-12 grossly intact gross motor/sensory intact Results & Data Results & Data ([facility]) Vital Signs (Past 12 Hours) Vital Signs Temp Pulse Pulse Resp BP Pulse Ox 01/13/20 11:01 98 H 18 93 01/13/20 07:39 97.9 F 95 H 22 182/78 H 95 01/13/20 07:21 73 01/13/20 07:15 101 H 22 98 01/13/20 03:00 81 18 97 01/13/20 01:22 80 01/13/20 00:31 94 H 01/12/20 23:37 98.4 F 90 20 163/76 H 99 01/12/20 23:35 88 20 100 PG Care Time/CCT Total # of Minutes Spent Total Time Spent with Patient: Total time spent is greater than 50% in coordination of care (as documented) at patient's floor/unit and/or counseling patient: Coding Level of Care Code 57591 Subseq Hosp Care Lvl 3 Diagnoses Acute and chronic respiratory failure J96.20 COPD (chronic obstructive pulmonary disease) J44.9 COPD type: unspecified COPD Pneumonia J18.9 Laterality: unspecified laterality Lung location: unspecified part of lung Pneumonia type: due to unspecified organism Obstructive sleep apnea G47.33 Type 2 diabetes mellitus E11.9 (1) COPD (chronic obstructive pulmonary disease) COPD type: unspecified COPD Qualified Code(s): J44.9 - Chronic obstructive pulmonary disease, unspecified (2) Pneumonia Laterality: unspecified laterality Lung location: unspecified part of lung Pneumonia type: due to unspecified organism Qualified Code(s): J18.9 - Pneumonia, unspecified organism
[2020-01-13] MEDS: levoFLOXacin 750 MG TAB PO SCH (17:10)
[2020-01-14] MEDS: ALBUTEROL 0.083% NEBU SOLN 3 ML VIAL INH PRN ×2 (04:49→22:51)
[2020-01-14] MEDS: IPRATROPIUM BROMIDE NEB SOLN 0.02% 2.5 ML VIAL INH SCH ×4 (06:59→18:51)
[2020-01-14] MEDS: BUDESONIDE 0.5 MG/2 ML VIAL (PULMICORT) INH SCH ×2 (06:59→19:24)
[2020-01-14] MEDS: LEVALBUTEROL HCL 1.25 MG/3 ML NEB NEB SCH ×4 (06:59→18:51)
[2020-01-14] MEDS: ACETYLCYSTEINE 20% INHAL SOLN 4ML ***DISPENSED BY RESP. INH SCH ×2 (07:00→18:52)
--- NOTE | 2020-01-14 07:26 | Pharmacy Report ---
Pharmacy Glycemic Short Note 2 - Date of Service January 14, 2020 - Glycemic Short BSG Results (Last 24 hours): 01/13/20 01/13/20 01/13/20 07:51 11:48 16:36 POC Glucose 106 H 135 H 174 H 01/13/20 20:11 POC Glucose 205 H OUTPATIENT ANTIDIABETIC REGIMEN: * Metformin 1 g PO daily * A1c = 6.0% on 12/17/19 Stressors * Steroids: prednisone 40 mg po daily * Infection: COPD exacerbation/PNA, on levofloxacin * Diet: T2DM ASSESSMENT: 01/13 * Patient received 38 units of insulin yesterday, 15 of this is NPH to cover once daily prednisone * Fasting BSG stable but postprandial BSGs elevated with improved PO intake. NPH can be increased further to cover the spike in BSGs from prednisone. * No changes to causes of insulin resistance 01/12 * 64 year old female admitted on 01/06/20 with SOB, COPD, acute on chronic respiratory failure, and pneumonia * No changes to stressors noted today * NPH being utilized as basal insulin 2nd pharmacokinetic similarities to AM prednisone-induced insulin resistance * AM fasting BSG at/near goal - will continue NPH at same dose * PO intake improved/increased yesterday. Two post-prandial BSG's >180 mg/dL in response - will tighten Novolog CHO ratio PLAN FOR INPATIENT GLYCEMIC CONTROL: * Hold outpatient oral diabetes medications * Basal insulin * NPH 20 units qAM (hold if prednisone is held) * Bolus insulin - no change * NovoLog per scale ACHS or Q6hrs while NPO * Goal Range: Low 110 mg/dL - High 140 mg/dL * Correction Factor: 30 mg/dL/unit * Nutritional / Prandial insulin per carb ratio of 1 unit per 10 grams CHO consumed PLAN FOR DISCHARGE: * Patient with good outpatient T2DM control as per A1c 6% on 12/17/19. Goal A1c < 7%. * Continue metformin upon discharge.
[2020-01-14 07:32] LABS: BUN Creatinine Ratio 16.3 (10-20); Calcium 9.4 mg/dl (8.5-10.1); Est GFR (African American) 79.9; Est GFR (Non-African American) 68.9; Potassium 3.1 mmol/L (3.5-5.1)
[2020-01-14] MEDS: INSULIN HUMAN NPH SC SCH (08:22)
[2020-01-14] MEDS: INSULIN ASPART 100 UNITS/ML 3 ML PEN SC SCH ×4 (08:23→20:38)
[2020-01-14] MEDS: UMECLIDINIUM/VILANTEROL 62.5/25MCG 7 PUFFS/INHALER INH SCH (08:24)
[2020-01-14] MEDS: FUROSEMIDE 40 MG TAB PO SCH (08:25)
[2020-01-14] MEDS: DOCUSATE SODIUM 100 MG CAP PO SCH ×2 (08:25→20:36)
[2020-01-14] MEDS: predniSONE 20 MG TAB PO SCH (08:25)
[2020-01-14] MEDS: PANTOprazole 40 MG TAB PO SCH (08:25)
[2020-01-14] MEDS: PRAVASTATIN SOD 40 MG TAB PO SCH (08:25)
[2020-01-14] MEDS: guaiFENesin 600 MG TABCR PO SCH ×2 (08:25→20:36)
[2020-01-14] MEDS: SIMETHICONE 80 MG CHEW PO PRN (08:28)
[2020-01-14] MEDS ORDERED: POTASSIUM CHLORIDE 20 MEQ TABCR PO STA (08:55)
[2020-01-14 09:21] LABS: HCO3 VBG 44 mmol/L; PCO2 VBG 80 mmHg (38-50); PO2 VBG 28 mmHg; pH VBG 7.36 (7.36-7.41)
[2020-01-14 09:23] LABS: Oxygen Saturation VBG < 60.0 %
[2020-01-14] MEDS: acetaZOLAMIDE 250 MG TAB PO SCH ×2 (09:37→20:36)
[2020-01-14] MEDS: BACLOFEN 10 MG TAB PO PRN (09:45)
[2020-01-14] MEDS ORDERED: ALBUTEROL HFA 8 GM INHALER INH PRN (16:06)
--- NOTE | 2020-01-14 16:13 | Hospitalist Progress Note ---
Date of Service January 14, 2020 Assessment & Plan (1) Acute and chronic respiratory failure: Sheri Landeros is a 64y/o F with PMH significant for COPD, diastolic heart dysfunction, CAD, and respiratory failure that presented the ER for shortness of breath and weakness. Acute on Chronic Respiratory failure: -probably mutlifactorial between COPD and HFpEF -on baseline O2, by symptoms she notes that she feels as good as she has in a long time -continue current care --> hoepfully w acetazolamide and more use of bipap her acid/base issues will improve chronic respiratory acidosis w compensatory metabolic alkalosis -added diamox given markedly elevated bicarb. pCO2 quite high as well but pH shows compensation -suspect worsened bicarb on BMP shows contraction alkalosis -hold lasix for now, f/u BMP in AM hypokalemia -hold lasix, replace K, f/u BMP COPD: - patient on home O2 chronically, chronic hypercapnea as well - continue O2 as needed; maintain O2 sats between 88-92% (she likes higher pulse ox which might contribute to hypercapnea some as well) - continue home nebulizers/inhalers - continue to monitor Constipation - bowels moving. continue lactulose ROZ: - patient utilizes BiPAP at home - continue BiPAP as she tolerates/allows T2DM: - hold home oral regimen - continue SSI with Lantus - continue to monitor - sugars overall reasonable Diet: Carb consistent T2DM DVT ppx: SCDs Code Status: Full code (2) COPD (chronic obstructive pulmonary disease): (3) Pneumonia: (4) Obstructive sleep apnea: (5) Type 2 diabetes mellitus: Admission and Anticipated Discharge Date Admission Date: January 06, 2020 Subjective feeling better but still not great. belly still somewhat bloated. no significant new sob though - getting around reasonably well. feels like far less dyspnic than when she was admitted. still worried about going home Review of Systems Review of Systems: All systems reviewed & are unremarkable except as noted in HPI & below Physical Exam Physical Exam: gen aao pleasant but anxious, nad. heent nc at mmm. lungs quiet but no r/r/w good effort no accessory muscles. cardio reg no r/m/g. abd soft mild distention maybe faint LUQ tenderness no guarding no rebound. ext no cyanosis. neuro no focal deficits. Results & Data Results & Data ([facility]) Vital Signs (Past 12 Hours) Vital Signs Temp Pulse Pulse Resp BP Pulse Ox 01/14/20 15:08 107 H 01/14/20 14:31 77 19 94 01/14/20 11:48 97.9 F 98 H 20 146/68 H 95 01/14/20 10:52 63 20 98 01/14/20 07:35 98.2 F 91 H 18 168/88 H 94 01/14/20 07:02 80 18 94 01/14/20 04:49 92 H 26 H 97 PG Care Time/CCT Total # of Minutes Spent Total Time Spent with Patient: Total time spent is greater than 50% in coordination of care (as documented) at patient's floor/unit and/or counseling patient: Coding Level of Care Code 19650 Subseq Hosp Care Lvl 3 Diagnoses Acute and chronic respiratory failure J96.20 COPD (chronic obstructive pulmonary disease) J44.9 COPD type: unspecified COPD Pneumonia J18.9 Laterality: unspecified laterality Lung location: unspecified part of lung Pneumonia type: due to unspecified organism Obstructive sleep apnea G47.33 Type 2 diabetes mellitus E11.9 (1) COPD (chronic obstructive pulmonary disease) COPD type: unspecified COPD Qualified Code(s): J44.9 - Chronic obstructive pulmonary disease, unspecified (2) Pneumonia Laterality: unspecified laterality Lung location: unspecified part of lung Pneumonia type: due to unspecified organism Qualified Code(s): J18.9 - Pneumonia, unspecified organism
[2020-01-14] MEDS: levoFLOXacin 750 MG TAB PO SCH (16:57)
[2020-01-14] MEDS: LACTULOSE SYRUP 20 GM/30 ML UDC PO PRN (17:01)
[2020-01-15] MEDS: ALBUTEROL 0.083% NEBU SOLN 3 ML VIAL INH PRN ×2 (04:48→22:43)
[2020-01-15 06:43] LABS: Calcium 9.4 mg/dl (8.5-10.1); Creatinine Clr Calc Pharmacy 66.4 ml/min; Est GFR (African American) 66.8; Est GFR (Non-African American) 57.7
[2020-01-15] MEDS: ACETYLCYSTEINE 20% INHAL SOLN 4ML ***DISPENSED BY RESP. INH SCH ×2 (07:22→18:47)
[2020-01-15] MEDS: BUDESONIDE 0.5 MG/2 ML VIAL (PULMICORT) INH SCH ×2 (07:22→18:47)
[2020-01-15] MEDS: IPRATROPIUM BROMIDE NEB SOLN 0.02% 2.5 ML VIAL INH SCH ×4 (07:22→18:46)
[2020-01-15] MEDS: LEVALBUTEROL HCL 1.25 MG/3 ML NEB NEB SCH ×4 (07:42→18:46)
[2020-01-15] MEDS: INSULIN HUMAN NPH SC SCH (08:41)
[2020-01-15] MEDS: INSULIN ASPART 100 UNITS/ML 3 ML PEN SC SCH ×4 (08:41→20:23)
[2020-01-15] MEDS: acetaZOLAMIDE 250 MG TAB PO SCH ×2 (08:43→20:22)
[2020-01-15] MEDS: PANTOprazole 40 MG TAB PO SCH (08:43)
[2020-01-15] MEDS: guaiFENesin 600 MG TABCR PO SCH ×2 (08:43→20:22)
[2020-01-15] MEDS: predniSONE 20 MG TAB PO SCH (08:44)
[2020-01-15] MEDS: PRAVASTATIN SOD 40 MG TAB PO SCH (08:44)
[2020-01-15] MEDS: UMECLIDINIUM/VILANTEROL 62.5/25MCG 7 PUFFS/INHALER INH SCH (08:46)
[2020-01-15] MEDS: DOCUSATE SODIUM 100 MG CAP PO SCH ×2 (08:48→20:22)
[2020-01-15] MEDS: SIMETHICONE 80 MG CHEW PO PRN (08:55)
[2020-01-15] MEDS ORDERED: POLYETHYLENE (MIRALAX) 17 GM PACK PO SCH (09:30)
[2020-01-15] MEDS: LACTULOSE SYRUP 20 GM/30 ML UDC PO PRN ×2 (12:34→17:37)
--- NOTE | 2020-01-15 15:23 | Hospitalist Progress Note ---
Date of Service January 15, 2020 Assessment & Plan (1) Acute and chronic respiratory failure: Sheri Landeros is a 64y/o F with PMH significant for COPD, diastolic heart dysfunction, CAD, and respiratory failure that presented the ER for shortness of breath and weakness. Acute on Chronic Respiratory failure: -probably mutlifactorial between COPD and HFpEF -on baseline O2, by symptoms she notes that she feels as good as she has in a long time -continue current care --> keep acetazolamide for today chronic respiratory acidosis w compensatory metabolic alkalosis -added diamox on 01/13 given markedly elevated bicarb. pCO2 quite high as well but pH shows compensation -suspect worsened bicarb on BMP shows contraction alkalosis -hold Lasix today, resume tomorrow HCO3 coming down, likely stop Diamox tomorrow hypokalemia -still low at 3.0, replace with 20mEq BID COPD: - patient on home O2 chronically, chronic hypercapnea as well - continue O2 as needed; maintain O2 sats between 88-92% (she likes higher pulse ox which might contribute to hypercapnea some as well) - continue home nebulizers/inhalers - Prednisone taper: 30mg x 2, 20mg x 2 and 10mg x 2 Constipation - more bloated today, recent complication of colonic ileus, will continue Lactulose offered Miralax, she does not tolerate well ROZ: - patient utilizes BiPAP at home - continue BiPAP as she tolerates/allows T2DM: - hold home oral regimen - continue SSI with Lantus - continue to monitor - sugars overall reasonable Diet: Carb consistent T2DM DVT ppx: SCDs Code Status: Full code (2) COPD (chronic obstructive pulmonary disease): (3) Obstructive sleep apnea: (4) Type 2 diabetes mellitus: (5) Constipation: (6) Obesity hypoventilation syndrome: (7) Hypercapnic respiratory failure: (8) Diastolic dysfunction: Admission and Anticipated Discharge Date Admission Date: January 06, 2020 Subjective patient doing okay, sitting up in chair, says her breathing is the best it has been in a long time having more abdominal distension today, no BM for a few days she said she had a BM shortly after admission with a dose of Lactulose no relief today with the lactulose know patient from prior admission, she had colonic ileus at that time, treated with Miralax BID she refuses to use the Miralax, difficult time swallowing, will use the Lactulose QID she is only ambulating 6 feet at a time, but she admits that she does not walk far at home CM working on home health, will get her home if we can get her to move bowels Review of Systems Review of Systems: All systems reviewed & are unremarkable except as noted in HPI & below Respiratory: + dyspnea on exertion; no cough, no dyspnea, no hemoptysis and no sputum production Cardiovascular: no chest pain and no edema Gastrointestinal: + bloating and + constipation; no abdominal pain, no nausea, no vomiting and no diarrhea/loose stools Genitourinary: no dysuria Physical Exam Constitutional: well developed and + overweight; no acute distress and not ill appearing Eyes: PERRL, conjunctivae normal, anicteric sclerae ENMT: external ear and nose normal, oropharynx normal Neck: trachea midline, no thyromegaly Respiratory: normal respiratory effort; no respiratory distress and no cough Auscultation: lungs clear to auscultation bilaterally and + diminished lung sounds; no wheezes Cardiovascular: RRR, no murmur, no edema Gastrointestinal (Abdomen): Inspection/Auscultation: + abdomen distended and + hypoactive bowel sounds Percussion/Palpation: + tympanic to percussion; abdomen nontender, no guarding, abdomen not rigid and + abdomen not soft Musculoskeletal: no cyanosis or clubbing, extremities motor strength 5/5 Skin: no rashes, warm and dry Neurologic: patellar DTR's 2+ bilat, sensation intact and PERRL, EOMI, accommodation nl, no face palsy, no dysarthria Psychiatric: A+Ox3, euthymic affect Lymphatic: no cervical or axillary lymphadenopathy Results & Data Results & Data ([facility]) Vital Signs (Past 12 Hours) Vital Signs Temp Pulse Pulse Resp BP Pulse Ox 01/15/20 11:30 102 H 22 93 01/15/20 11:29 36.5 C 95 H 18 141/69 H 94 01/15/20 07:23 86 16 97 01/15/20 07:17 77 01/15/20 06:57 36.4 C L 85 18 132/72 99 01/15/20 04:57 36.2 C L 70 22 171/85 H 100 01/15/20 04:49 90 22 99 Laboratory Results Laboratory Results - last 24 hr 01/14/20 01/14/20 01/14/20 16:17 16:19 20:19 Sodium Potassium Chloride Carbon Dioxide Anion Gap BUN Creatinine Est Cr Clr Drug Dosing Est GFR ( Amer) Est GFR (Non-Af Amer) BUN/Creatinine Ratio Glucose POC Glucose 311 H* 318 H* 155 H Calcium 01/15/20 01/15/20 01/15/20 05:33 07:31 11:35 Sodium 138 Potassium 3.0 L Chloride 94 L Carbon Dioxide 39 H Anion Gap 4.0 BUN 15 Creatinine 1.02 Est Cr Clr Drug Dosing 66.4 Est GFR ( Amer) 66.8 Est GFR (Non-Af Amer) 57.7 BUN/Creatinine Ratio 15.0 Glucose 110 H POC Glucose 158 H 110 H Calcium 9.4 Medications Administered Current Inpatient Medications Acetaminophen (Tylenol) 650 mg PO Q4H PRN PRN Reason: pain/fever Stop: 02/06/20 00:28 Acetazolamide (Diamox) 250 mg PO BID [facility] Stop: 02/13/20 08:59 Last Admin: 01/15/20 08:43 Dose: 250 mg Documented by: Acetylcysteine (Mucomyst 20%) 5 ml INH Q12R YAN Stop: 02/09/20 18:59 Last Admin: 01/15/20 07:22 Dose: 5 ml Documented by: Al Hydrox/Mg Hydrox/Simethicone (Maalox) 30 ml PO Q6H PRN PRN Reason: Dyspepsia Stop: 02/06/20 00:28 Albuterol (Ventolin 0.083% 2.5mg/3ml) 2.5 mg INH Q4H PRN PRN Reason: wheezing Stop: 02/06/20 00:28 Last Admin: 01/15/20 04:48 Dose: 2.5 mg Documented by: Albuterol (Ventolin Hfa) 2 puffs INH Q6 PRN PRN Reason: sob/wheeze Stop: 02/13/20 16:05 Baclofen (Lioresal) 10 - 20 mg PO TID PRN PRN Reason: Muscle Spasm Stop: 02/06/20 00:28 Last Admin: 01/14/20 09:45 Dose: 10 mg Documented by: Budesonide (Pulmicort Respules) 0.5 mg INH BIDR YAN Stop: 02/06/20 06:59 Last Admin: 01/15/20 07:22 Dose: 0.5 mg Documented by: Dextrose (Dextrose 50%) 25 - 50 ml IV UD PRN; Protocol PRN Reason: Hypoglycemia Protocol Stop: 02/06/20 00:28 Docusate Sodium (Colace) 100 mg PO BID [facility] Stop: 02/06/20 08:59 Last Admin: 01/15/20 08:48 Dose: 100 mg Documented by: Furosemide (Lasix) 40 mg PO QAM YAN Stop: 02/08/20 11:59 Last Admin: 01/14/20 08:25 Dose: 40 mg Documented by: Glucagon (Glucagen) 1 mg SQ UD PRN; Protocol PRN Reason: Hypoglycemia Protocol Stop: 02/06/20 00:28 Glucose (Dex4 Glucose) 4 - 8 tabs PO UD PRN; Protocol PRN Reason: Hypoglycemia Protocol Stop: 02/06/20 00:28 Glucose (Glucose 40%) 15 - 30 gm PO UD PRN; Protocol PRN Reason: Hypoglycemia Protocol Stop: 02/06/20 00:28 Guaifenesin (Mucinex) 1,200 mg PO Q12 [facility] Stop: 02/07/20 21:59 Last Admin: 01/15/20 08:43 Dose: 1,200 mg Documented by: Insulin Aspart (Novolog Flexpen) 0 units SC ACHS [facility]; Protocol Stop: 02/06/20 07:29 Last Admin: 01/15/20 12:31 Dose: 4 units Documented by: Insulin Human NPH (Novolin N Nph) 20 units SC QDB [facility]; Protocol Stop: 02/13/20 07:59 Last Admin: 01/15/20 08:41 Dose: 20 units Documented by: Ipratropium [place] (Atrovent 0.02% 0.5mg/2.5ml) 0.5 mg INH QIDR YAN Stop: 02/06/20 06:59 Last Admin: 01/15/20 11:27 Dose: 0.5 mg Documented by: Lactulose (Chronulac) 20 gm PO QID PRN PRN Reason: contipation Stop: 02/12/20 12:59 Last Admin: 01/15/20 12:34 Dose: 20 gm Documented by: Levalbuterol HCl (Xopenex 1.25mg/3ml Neb) 1.25 mg NEB QIDR [facility] Stop: 02/11/20 14:59 Last Admin: 01/15/20 11:27 Dose: 1.25 mg Documented by: Levofloxacin (Levaquin) 750 mg PO DAILY@1600 [facility] Stop: 01/15/20 23:59 Last Admin: 01/14/20 16:57 Dose: 750 mg Documented by: Magnesium Hydroxide (Milk Of Magnesia) 30 ml PO Q6H PRN PRN Reason: Constipation Stop: 02/06/20 00:28 Menthol (Nice) 1 ender BUCCAL PRN PRN PRN Reason: Sore Throat Stop: 02/06/20 05:25 Miconazole Nitrate (Desenex) 1 appln EXT BID PRN PRN Reason: Affected Skin Folds Stop: 02/06/20 08:14 Miscellaneous (Carbohydrates For Hypoglycemia) 15 - 30 gm PO UD PRN PRN Reason: Hypoglycemia Protocol Stop: 02/06/20 00:28 Last Admin: 01/11/20 12:18 Dose: 15 gm Documented by: Miscellaneous Information (Consult Glycemic Management Pharmacy) 1 ea N/A UD [facility] Stop: 02/10/20 15:55 Ondansetron HCl (Zofran) 4 mg IV Q6H PRN PRN Reason: Nausea Stop: 02/06/20 00:28 Pantoprazole Sodium (Protonix) 40 mg PO DAILY [facility] Stop: 02/06/20 08:59 Last Admin: 01/15/20 08:43 Dose: 40 mg Documented by: Pravastatin Sodium (Pravachol) 80 mg PO DAILY [facility] Stop: 02/06/20 08:59 Last Admin: 01/15/20 08:44 Dose: 80 mg Documented by: Prednisone (Prednisone) 30 mg PO QAM [facility]; Taper Stop: 01/22/20 08:59 Simethicone (Mylicon) 80 mg PO Q6H PRN PRN Reason: Gas or Constipation Stop: 02/08/20 11:55 Last Admin: 01/15/20 08:55 Dose: 80 mg Documented by: Sodium Chloride ([place] Nasal) 2 sprays NA PRN PRN PRN Reason: Dryness Stop: 02/06/20 17:04 Last Admin: 01/07/20 17:25 Dose: 2 sprays Documented by: Umeclidinium/Vilanterol (Anoro Ellipta 62.5/25 Mcg Inh) 1 puffs INH DAILY YAN Stop: 02/06/20 08:59 Last Admin: 01/15/20 08:46 Dose: Not Given Documented by: PG Care Time/CCT Total # of Minutes Spent Total Time Spent with Patient: Total time spent is greater than 50% in coordination of care (as documented) at patient's floor/unit and/or counseling patient: Coding Level of Care Code 97106 Subseq Hosp Care Lvl 3 Diagnoses Acute and chronic respiratory failure J96.20 COPD (chronic obstructive pulmonary disease) J44.9 COPD type: unspecified COPD Obstructive sleep apnea G47.33 Type 2 diabetes mellitus E11.9 Constipation K59.00 Obesity hypoventilation syndrome E66.2 Hypercapnic respiratory failure J96.92 Diastolic dysfunction I51.89 (1) COPD (chronic obstructive pulmonary disease) COPD type: unspecified COPD Qualified Code(s): J44.9 - Chronic obstructive pulmonary disease, unspecified
[2020-01-15] MEDS: levoFLOXacin 750 MG TAB PO SCH (15:34)
[2020-01-15] MEDS: BACLOFEN 10 MG TAB PO PRN (16:18)
[2020-01-15] MEDS: POTASSIUM CHLORIDE PWD 20 MEQ PACK PO SCH (20:30)
[2020-01-16 06:13] LABS: Hematocrit (blood only) 36.1 % (37-47); Hemoglobin 10.9 g/dL (12.0-16.0); Mean Corpuscular Hemoglobin 27.6 pg (25-34); Mean Corpuscular Hgb Conc 30.2 g/dL (32-36); Mean Corpuscular Volume 91.4 fL (80-100); Mean Platelet Volume 9.6 fL (7.4-10.4); Nucleated RBC # (auto) 0.03 K/uL (0-0); Nucleated RBC % (auto) 0.3 %; Platelet Count 185 K/uL (130-400); RDW Coefficient of Variation 15.1 % (11.5-14.5); RDW Standard Deviation 50.8 fL (36.4-46.3); Red Blood Count 3.95 M/uL (4.2-5.4); White Blood Count 9.25 K/uL (4.8-10.8)
[2020-01-16 06:56] LABS: BUN Creatinine Ratio 17.5 (10-20); Calcium 9.2 mg/dl (8.5-10.1); Creatinine Clr Calc Pharmacy 69.1 ml/min; Est GFR (African American) 70.2; Est GFR (Non-African American) 60.5; Magnesium 2.2 mg/dl (1.8-2.4); Potassium 3.6 mmol/L (3.5-5.1)
[2020-01-16] MEDS: LEVALBUTEROL 1.25MG/0.5ML NEB INH SCH ×4 (07:11→19:09)
[2020-01-16] MEDS: ACETYLCYSTEINE 20% INHAL SOLN 4ML ***DISPENSED BY RESP. INH SCH ×2 (07:11→19:23)
[2020-01-16] MEDS: IPRATROPIUM BROMIDE NEB SOLN 0.02% 2.5 ML VIAL INH SCH ×4 (07:11→19:09)
[2020-01-16] MEDS: BUDESONIDE 0.5 MG/2 ML VIAL (PULMICORT) INH SCH ×2 (07:11→19:09)
[2020-01-16] MEDS: PRAVASTATIN SOD 40 MG TAB PO SCH (08:39)
[2020-01-16] MEDS: UMECLIDINIUM/VILANTEROL 62.5/25MCG 7 PUFFS/INHALER INH SCH ×2 (08:39→08:56)
[2020-01-16] MEDS: guaiFENesin 600 MG TABCR PO SCH ×2 (08:40→20:01)
[2020-01-16] MEDS: acetaZOLAMIDE 250 MG TAB PO SCH ×2 (08:40→20:01)
[2020-01-16] MEDS: DOCUSATE SODIUM 100 MG CAP PO SCH ×2 (08:40→20:07)
[2020-01-16] MEDS: PANTOprazole 40 MG TAB PO SCH (08:40)
[2020-01-16] MEDS: BACLOFEN 10 MG TAB PO PRN (08:41)
[2020-01-16] MEDS: predniSONE 10 MG TABLET PO SCH (08:41)
[2020-01-16] MEDS: INSULIN HUMAN NPH SC SCH (08:42)
[2020-01-16] MEDS: POTASSIUM CHLORIDE PWD 20 MEQ PACK PO SCH ×2 (08:43→20:02)
[2020-01-16] MEDS: INSULIN ASPART 100 UNITS/ML 3 ML PEN SC SCH ×4 (08:44→20:02)
[2020-01-16] MEDS: LACTULOSE SYRUP 20 GM/30 ML UDC PO PRN ×2 (13:05→21:55)
--- NOTE | 2020-01-16 14:02 | XRay Report ---
AP CHEST WITH ABDOMINAL SERIES CLINICAL HISTORY: Constipation. Abdominal distention. FINDINGS: An AP upright chest radiograph is compared to study dated 01/10/2020 and correlated with chest CT date d 01/09/2020. Examination is degraded by patient rotation and apical lordotic positioning. The cardiome diastinal silhouette is unremarkable. Emphysema and chronic interstitial thickening are similar to pr evious. There is bibasilar scarring/atelectasis. No airspace consolidation or large pleural effusion is identified. No pneumothorax is seen. The skeletal structures are osteopenic. The bony thorax is gr ossly intact. Supine and decubitus abdominal radiographs are compared to study dated 12/20/2019. Cholecystectomy cli ps are noted in the right upper quadrant. There is a nonobstructed abdominal bowel gas pattern. There is mild gaseous distention of the colon with moderate fecal retention. No evidence of intraperitonea l free air is seen. There are no abnormal abdominal calcifications. The lumbosacral spine and bony pe lvis appear intact. IMPRESSION: 1. Emphysematous change with no acute cardiopulmonary abnormality. 2. Nonobstructed abdominal bowel gas pattern. 3. There is mild gaseous distention of the colon with moderate fecal retention. ACT 112: Negative or not required by law. Electronically signed by: Lexa Mcgraw M.D. 01/16/2020 2:01 PM
--- NOTE | 2020-01-16 14:18 | Pharmacy Report ---
Pharmacy Glycemic Short Note 2 - Date of Service January 16, 2020 - Glycemic Short BSG Results (Last 24 hours): 01/15/20 01/15/20 01/16/20 16:42 20:09 05:43 Glucose 97 POC Glucose 223 H 148 H 01/16/20 01/16/20 07:31 11:38 Glucose POC Glucose 97 105 H OUTPATIENT ANTIDIABETIC REGIMEN: * Metformin 1 g PO daily * A1c = 6.0% on 12/17/19 ASSESSMENT: 01/16/20: * Patient's steroids have begun to taper. Dose reduced from 40mg --> 30mg today (x2 days, then further taper). * BSGs have been relatively well-controlled, with the exception of pre-dinner BSG. * Since evening BSGs have been somewhat elevated, NPH reduced this morning, but not in proportion to prednisone taper, in an effort to reduce PM hyperglycemia. Will continue to adjust NPH as prednisone tapers. 01/13 * Patient received 38 units of insulin yesterday, 15 of this is NPH to cover once daily prednisone * Fasting BSG stable but postprandial BSGs elevated with improved PO intake. NPH can be increased further to cover the spike in BSGs from prednisone. * No changes to causes of insulin resistance 01/12 * 64 year old female admitted on 01/06/20 with SOB, COPD, acute on chronic respiratory failure, and pneumonia * No changes to stressors noted today * NPH being utilized as basal insulin 2nd pharmacokinetic similarities to AM prednisone-induced insulin resistance * AM fasting BSG at/near goal - will continue NPH at same dose * PO intake improved/increased yesterday. Two post-prandial BSG's >180 mg/dL in response - will tighten Novolog CHO ratio PLAN FOR INPATIENT GLYCEMIC CONTROL: * Hold outpatient oral diabetes medications * Basal insulin * NPH 17 units qAM, while on prednisone 30mg * Hold if prednisone is held * Bolus insulin - no change * NovoLog per scale ACHS or Q6hrs while NPO * Goal Range: Low 110 mg/dL - High 140 mg/dL * Correction Factor: 30 mg/dL/unit * Nutritional / Prandial insulin per carb ratio of 1 unit per 10 grams CHO consumed PLAN FOR DISCHARGE: * Patient with good outpatient T2DM control as per A1c 6% on 12/17/19. Goal A1c < 7%. * Continue metformin upon discharge. * If patient ends up being discharged with ongoing steroids, regimen may require adjustment.
--- NOTE | 2020-01-16 20:15 | Hospitalist Progress Note ---
Date of Service January 16, 2020 Assessment & Plan (1) Acute and chronic respiratory failure: Sheri Landeros is a 64y/o F with PMH significant for COPD, diastolic heart dysfunction, CAD, and respiratory failure that presented the ER for shortness of breath and weakness. Acute on Chronic Respiratory failure: -probably mutlifactorial between COPD and HFpEF -on baseline O2, by symptoms she notes that she feels as good as she has in a long time -continue current care --> stop acetazolamide, resume Lasix chronic respiratory acidosis w compensatory metabolic alkalosis -added diamox on 01/13 given markedly elevated bicarb. pCO2 quite high as well but pH shows compensation -suspect worsened bicarb on BMP shows contraction alkalosis -held Lasix, HCO3 down to 39, will stop Diamox after today and resume Lasix hypokalemia -normal at 3.6, continue 20mEq BID COPD: - patient on home O2 chronically, chronic hypercapnea as well - continue O2 as needed; maintain O2 sats between 88-92% (she likes higher pulse ox which might contribute to hypercapnea some as well) - continue home nebulizers/inhalers - Prednisone taper: 30mg x 1, 20mg x 2 and 10mg x 2 Constipation - continue Lactulose and milk of magnesia, she refuses Miralax abdominal series on 01/15 with normal bowel gas pattern, some dilation of colon, formed stool in colon, consistent with constipation no evidence of SBO ROZ: - patient utilizes BiPAP at home - continue BiPAP as she tolerates/allows T2DM: - hold home oral regimen - continue SSI with Lantus - continue to monitor - sugars overall reasonable, pharmacy following the the Prednisone taper Oral thrush - Nystatin S/S Diet: Carb consistent T2DM DVT ppx: SCDs Code Status: Full code (2) COPD (chronic obstructive pulmonary disease): (3) Obstructive sleep apnea: (4) Type 2 diabetes mellitus: (5) Constipation: (6) Obesity hypoventilation syndrome: (7) Hypercapnic respiratory failure: (8) Diastolic dysfunction: (9) Oral thrush: some scattered white plaques, c/o throat pain, no erythema will add Nystatin S/S likely got thrush due to steroid use Admission and Anticipated Discharge Date Admission Date: January 08, 2020 Subjective patient says she feels miserable today, still struggling to move her bowels some conflicting reports, nurses aide and nurse report she is moving bowels daily patient says she is just passing flatus no nausea, she continues to eat well check abdominal series, just shows bowel gas pattern, some stool in colon patient c/o some pain in the back of her throat, examined her, two or three very small white plaques, throat not inflamed she says her breathing is stable, on 6L which is home dose she is not coughing she is not motivated with therapy, just wants to sit, she walks 4-6 feet, she says this is what she does at home reviewed labs, CBC stable, BMP shows HCO3 stable at 39, Cr is 0.9 pt c/o some swelling in feet Review of Systems Review of Systems: All systems reviewed & are unremarkable except as noted in HPI & below Physical Exam Constitutional: well developed and + overweight; no acute distress and not ill appearing Eyes: PERRL, conjunctivae normal, anicteric sclerae ENMT: external ear and nose normal, oropharynx normal Throat: uvula midline and + posterior oropharynx abnormality (scattered white plaques, no erythema) Neck: trachea midline, no thyromegaly Respiratory: normal respiratory effort; no respiratory distress and no cough Auscultation: lungs clear to auscultation bilaterally and + diminished lung sounds; no wheezes Cardiovascular: Rate/Rhythm: regular rate and regular rhythm Heart Sounds: normal S1 and normal S2; no murmur Extremities: normal capillary refill and + edema Gastrointestinal (Abdomen): Inspection/Auscultation: + abdomen distended and + hypoactive bowel sounds Percussion/Palpation: + tympanic to percussion; abdomen nontender, no guarding, abdomen not rigid and + abdomen not soft Musculoskeletal: no cyanosis or clubbing, extremities motor strength 5/5 Skin: no rashes, warm and dry Neurologic: patellar DTR's 2+ bilat, sensation intact and PERRL, EOMI, accommodation nl, no face palsy, no dysarthria Psychiatric: A+Ox3, euthymic affect Lymphatic: no cervical or axillary lymphadenopathy Results & Data Results & Data ([facility]) Vital Signs (Past 12 Hours) Vital Signs Temp Pulse Pulse Resp BP Pulse Ox 01/16/20 19:32 36.6 C 85 16 141/60 H 100 01/16/20 19:24 102 H 16 95 01/16/20 15:16 36.9 C 83 18 155/78 H 96 01/16/20 14:54 88 22 92 01/16/20 14:50 110 H 01/16/20 11:12 85 20 94 Laboratory Results Laboratory Results - last 24 hr 01/15/20 01/16/20 01/16/20 20:09 05:43 05:43 WBC 9.25 RBC 3.95 L Hgb 10.9 L Hct 36.1 L MCV 91.4 MCH 27.6 MCHC 30.2 L RDW Std Deviation 50.8 H RDW Coeff of Ana 15.1 H Plt Count 185 MPV 9.6 Absolute Nucleated RBC 0.03 H Nucleated RBC % (auto) 0.3 Sodium 140 Potassium 3.6 D Chloride 100 Carbon Dioxide 39 H Anion Gap 1.0 L BUN 17 Creatinine 0.98 Est Cr Clr Drug Dosing 69.1 Est GFR ( Amer) 70.2 Est GFR (Non-Af Amer) 60.5 BUN/Creatinine Ratio 17.5 Glucose 97 POC Glucose 148 H Calcium 9.2 Magnesium 2.2 01/16/20 01/16/20 01/16/20 07:31 11:38 16:36 WBC RBC Hgb Hct MCV MCH MCHC RDW Std Deviation RDW Coeff of Ana Plt Count MPV Absolute Nucleated RBC Nucleated RBC % (auto) Sodium Potassium Chloride Carbon Dioxide Anion Gap BUN Creatinine Est Cr Clr Drug Dosing Est GFR ( Amer) Est GFR (Non-Af Amer) BUN/Creatinine Ratio Glucose POC Glucose 97 105 H 160 H Calcium Magnesium 01/16/20 19:43 WBC RBC Hgb Hct MCV MCH MCHC RDW Std Deviation RDW Coeff of Ana Plt Count MPV Absolute Nucleated RBC Nucleated RBC % (auto) Sodium Potassium Chloride Carbon Dioxide Anion Gap BUN Creatinine Est Cr Clr Drug Dosing Est GFR ( Amer) Est GFR (Non-Af Amer) BUN/Creatinine Ratio Glucose POC Glucose 185 H Calcium Magnesium Diagnostic Findings ABDOMINAL SERIES IMPRESSION: 1. Emphysematous change with no acute cardiopulmonary abnormality. 2. Nonobstructed abdominal bowel gas pattern. 3. There is mild gaseous distention of the colon with moderate fecal retention. Medications Administered Current Inpatient Medications Acetaminophen (Tylenol) 650 mg PO Q4H PRN PRN Reason: pain/fever Stop: 02/06/20 00:28 Last Admin: 01/16/20 13:56 Dose: 650 mg Documented by: Acetazolamide (Diamox) 250 mg PO BID [facility] Stop: 02/13/20 08:59 Last Admin: 01/16/20 20:01 Dose: 250 mg Documented by: Acetylcysteine (Mucomyst 20%) 5 ml INH Q12R YAN Stop: 02/09/20 18:59 Last Admin: 01/16/20 19:23 Dose: Not Given Documented by: Al Hydrox/Mg Hydrox/Simethicone (Maalox) 30 ml PO Q6H PRN PRN Reason: Dyspepsia Stop: 02/06/20 00:28 Albuterol (Ventolin 0.083% 2.5mg/3ml) 2.5 mg INH Q4H PRN PRN Reason: wheezing Stop: 02/06/20 00:28 Last Admin: 01/15/20 22:43 Dose: 2.5 mg Documented by: Albuterol (Ventolin Hfa) 2 puffs INH Q6 PRN PRN Reason: sob/wheeze Stop: 02/13/20 16:05 Baclofen (Lioresal) 10 - 20 mg PO TID PRN PRN Reason: Muscle Spasm Stop: 02/06/20 00:28 Last Admin: 01/16/20 08:41 Dose: 10 mg Documented by: Budesonide (Pulmicort Respules) 0.5 mg INH BIDR [facility] Stop: 02/06/20 06:59 Last Admin: 01/16/20 19:09 Dose: 0.5 mg Documented by: Dextrose (Dextrose 50%) 25 - 50 ml IV UD PRN; Protocol PRN Reason: Hypoglycemia Protocol Stop: 02/06/20 00:28 Docusate Sodium (Colace) 100 mg PO BID [facility] Stop: 02/06/20 08:59 Last Admin: 01/16/20 20:07 Dose: 100 mg Documented by: Furosemide (Lasix) 40 mg PO QAM [facility] Stop: 02/08/20 11:59 Last Admin: 01/14/20 08:25 Dose: 40 mg Documented by: Glucagon (Glucagen) 1 mg SQ UD PRN; Protocol PRN Reason: Hypoglycemia Protocol Stop: 02/06/20 00:28 Glucose (Dex4 Glucose) 4 - 8 tabs PO UD PRN; Protocol PRN Reason: Hypoglycemia Protocol Stop: 02/06/20 00:28 Glucose (Glucose 40%) 15 - 30 gm PO UD PRN; Protocol PRN Reason: Hypoglycemia Protocol Stop: 02/06/20 00:28 Guaifenesin (Mucinex) 1,200 mg PO Q12 [facility] Stop: 02/07/20 21:59 Last Admin: 01/16/20 20:01 Dose: 1,200 mg Documented by: Insulin Aspart (Novolog Flexpen) 0 units SC ACHS [facility]; Protocol Stop: 02/06/20 07:29 Last Admin: 01/16/20 20:02 Dose: 2 units Documented by: Insulin Human NPH (Novolin N Nph) [facility] [place] [facility] Stop: 02/15/20 08:59 Last Admin: 01/16/20 08:42 Dose: 17 units Documented by: Ipratropium [place] (Atrovent 0.02% 0.5mg/2.5ml) 0.5 mg INH QIDR [facility] Stop: 02/06/20 06:59 Last Admin: 01/16/20 19:09 Dose: 0.5 mg Documented by: Lactulose (Chronulac) 20 gm PO QID PRN PRN Reason: contipation Stop: 02/12/20 12:59 Last Admin: 01/15/20 17:37 Dose: 20 gm Documented by: Levalbuterol HCl (Xopenex 1.25mg/0.5ml Neb) 1.25 mg INH QIDR YAN Stop: 02/15/20 06:59 Last Admin: 01/16/20 19:09 Dose: 1.25 mg Documented by: Magnesium Hydroxide (Milk Of Magnesia) 30 ml PO Q6H PRN PRN Reason: Constipation Stop: 02/06/20 00:28 Menthol (Nice) 1 ender BUCCAL PRN PRN PRN Reason: Sore Throat Stop: 02/06/20 05:25 Miconazole Nitrate (Desenex) 1 appln EXT BID PRN PRN Reason: Affected Skin Folds Stop: 02/06/20 08:14 Miscellaneous (Carbohydrates For Hypoglycemia) 15 - 30 gm PO UD PRN PRN Reason: Hypoglycemia Protocol Stop: 02/06/20 00:28 Last Admin: 01/11/20 12:18 Dose: 15 gm Documented by: Miscellaneous Information (Consult Glycemic Management Pharmacy) 1 ea N/A UD [facility] Stop: 02/10/20 15:55 Ondansetron HCl (Zofran) 4 mg IV Q6H PRN PRN Reason: Nausea Stop: 02/06/20 00:28 Pantoprazole Sodium (Protonix) 40 mg PO DAILY [facility] Stop: 02/06/20 08:59 Last Admin: 01/16/20 08:40 Dose: 40 mg Documented by: Potassium Chloride (Klor-Con Pwd) 20 meq PO BID [facility] Stop: 02/14/20 20:59 Last Admin: 01/16/20 20:02 Dose: 20 meq Documented by: Pravastatin Sodium (Pravachol) 80 mg PO DAILY [facility] Stop: 02/06/20 08:59 Last Admin: 01/16/20 08:39 Dose: 80 mg Documented by: Prednisone (Prednisone) 30 mg PO QAM [facility]; Taper Stop: 01/22/20 08:59 Last Admin: 01/16/20 08:41 Dose: 30 mg Documented by: Simethicone (Mylicon) 80 mg PO Q6H PRN PRN Reason: Gas or Constipation Stop: 02/08/20 11:55 Last Admin: 01/15/20 08:55 Dose: 80 mg Documented by: Sodium Chloride ([place] Nasal) 2 sprays NA PRN PRN PRN Reason: Dryness Stop: 02/06/20 17:04 Last Admin: 01/07/20 17:25 Dose: 2 sprays Documented by: Umeclidinium/Vilanterol (Anoro Ellipta 62.5/25 Mcg Inh) 1 puffs INH DAILY [facility] Stop: 02/06/20 08:59 Last Admin: 01/16/20 08:56 Dose: Not Given Documented by: PG Care Time/CCT Total # of Minutes Spent Total Time Spent with Patient: Total time spent is greater than 50% in coordination of care (as documented) at patient's floor/unit and/or counseling patient: Coding Level of Care Code 22015 Subseq Hosp Care Lvl 3 Diagnoses Acute and chronic respiratory failure J96.20 COPD (chronic obstructive pulmonary disease) J44.9 COPD type: unspecified COPD Obstructive sleep apnea G47.33 Type 2 diabetes mellitus E11.9 Constipation K59.00 Obesity hypoventilation syndrome E66.2 Hypercapnic respiratory failure J96.92 Diastolic dysfunction I51.89 Oral thrush B37.0 (1) COPD (chronic obstructive pulmonary disease) COPD type: unspecified COPD Qualified Code(s): J44.9 - Chronic obstructive pulmonary disease, unspecified
[2020-01-16] MEDS: NYSTATIN SUSP 500,000 U/5 ML UDC PO SCH (21:49)
[2020-01-17] MEDS: ALBUTEROL 0.083% NEBU SOLN 3 ML VIAL INH PRN ×2 (00:37→23:20)
[2020-01-17 07:05] LABS: Calcium 9.2 mg/dl (8.5-10.1); Creatinine Clr Calc Pharmacy 71.3 ml/min; Est GFR (African American) 74.7; Est GFR (Non-African American) 64.5; Potassium 3.7 mmol/L (3.5-5.1)
[2020-01-17] MEDS: BUDESONIDE 0.5 MG/2 ML VIAL (PULMICORT) INH SCH ×2 (07:18→19:05)
[2020-01-17] MEDS: IPRATROPIUM BROMIDE NEB SOLN 0.02% 2.5 ML VIAL INH SCH ×4 (07:18→19:05)
[2020-01-17] MEDS: LEVALBUTEROL 1.25MG/0.5ML NEB INH SCH ×4 (07:18→19:05)
[2020-01-17] MEDS: predniSONE 10 MG TABLET PO SCH (08:43)
[2020-01-17] MEDS: guaiFENesin 600 MG TABCR PO SCH ×2 (08:44→20:01)
[2020-01-17] MEDS: NYSTATIN SUSP 500,000 U/5 ML UDC PO SCH ×4 (08:44→20:00)
[2020-01-17] MEDS: PRAVASTATIN SOD 40 MG TAB PO SCH (08:44)
[2020-01-17] MEDS: INSULIN HUMAN NPH SC SCH (08:45)
[2020-01-17] MEDS: POTASSIUM CHLORIDE PWD 20 MEQ PACK PO SCH ×2 (08:45→20:00)
[2020-01-17] MEDS: UMECLIDINIUM/VILANTEROL 62.5/25MCG 7 PUFFS/INHALER INH SCH (08:47)
[2020-01-17] MEDS: PANTOprazole 40 MG TAB PO SCH (08:47)
[2020-01-17] MEDS: FUROSEMIDE 40 MG TAB PO SCH (08:47)
[2020-01-17] MEDS: INSULIN ASPART 100 UNITS/ML 3 ML PEN SC SCH ×4 (08:49→21:14)
[2020-01-17] MEDS: BACLOFEN 10 MG TAB PO PRN (09:11)
[2020-01-17] MEDS: DOCUSATE SODIUM 100 MG CAP PO SCH ×2 (09:12→20:00)
[2020-01-17] MEDS ORDERED: LAVAGE SOLUTION 4000ML PO ONE (11:00)
--- NOTE | 2020-01-17 14:08 | Hospitalist Progress Note ---
Date of Service January 17, 2020 Assessment & Plan (1) Acute and chronic respiratory failure: Sheri Landeros is a 64y/o F with PMH significant for COPD, diastolic heart dysfunction, CAD, and respiratory failure that presented the ER for shortness of breath and weakness. Acute on Chronic Respiratory failure: -probably multifactorial with restrictive lung disease due to obesity and abdominal distension in addition to COPD and HFpEF -on baseline O2 at present although recommend weaning flow rate to aim O2 sats > 88% given prior CO2 retention. Chronic respiratory acidosis w compensatory metabolic alkalosis -improved with diamox and now on reduced lasix dose (caused contraction alkalosis) hypokalemia -K3.7, COPD with acute exacerbation: - continue O2 as needed; maintain O2 sats between 88-92% (she likes higher pulse ox but should continue to encourage to wean given hypercapnia) - continue home nebulizers/inhalers - Continue prednisone taper: 30mg x 1 today, 20mg x 2 and 10mg x 2 Constipation - remains her main issue that is keeping her in hospital. Continues to refuse enema. Noted prior plan for gastrograffin enema from prior GI notes as concern for possible ROZ: - patient utilizes BiPAP at home - continue BiPAP as she tolerates/allows T2DM: - hold home oral regimen - continue SSI with Lantus - continue to monitor - sugars overall reasonable, pharmacy following the the Prednisone taper Oral thrush - None on exam today. Finish Nystatin S/S 7 day course. Continued inpatient stay given lack of BM which is causing significant respiratory distress with abdominal distention despite O2 sats at her baseline. Diet: Carb consistent T2DM DVT ppx: SCDs Code Status: Full code (2) COPD (chronic obstructive pulmonary disease): (3) Obstructive sleep apnea: (4) Type 2 diabetes mellitus: (5) Constipation: (6) Obesity hypoventilation syndrome: (7) Hypercapnic respiratory failure: (8) Diastolic dysfunction: (9) Oral thrush: Admission and Anticipated Discharge Date Admission Date: January 08, 2020 Subjective Patient reports no bowel movement for several days. Feeling worse everyday as she is finding it harder to breath with her abdominal distension. Declines Gastrografin enema as per last GI note recommendation before she had a bowel movement. She has been refusing lactulose dosing intermittently. Still eating without nausea or vomiting and passing flatus. No abdominal pain but making her breathing difficult. Review of Systems Review of Systems: All systems reviewed & are unremarkable except as noted in HPI & below Physical Exam Constitutional: well developed and + morbidly obese; no acute distress Eyes: + anicteric sclerae; normal pupil size ENMT: external ear and nose normal, oropharynx normal Neck: trachea midline Respiratory: + uses accessory muscles; no labored breathing and no cough Auscultation: + diminished lung sounds; no crackles, no rales, no rhonchi and no wheezes Cardiovascular: Rate/Rhythm: regular rate and regular rhythm Heart Sounds: normal S2; no murmur Extremities: + pedal edema Gastrointestinal (Abdomen): Inspection/Auscultation: + abdomen distended and + hypoactive bowel sounds Percussion/Palpation: abdomen soft; abdomen nontender, no guarding and abdomen not rigid Neurologic: moves all extremities and awake; not confused Psychiatric: Orientation: alert and oriented x 3 Affect: + depressed affect Results & Data Results & Data ([facility]) Vital Signs (Past 12 Hours) Vital Signs Temp Pulse Pulse Resp BP Pulse Ox 01/17/20 12:01 36.3 C L 76 18 136/84 99 01/17/20 10:54 89 20 98 01/17/20 07:31 36.1 C L 81 20 130/72 100 01/17/20 07:22 82 20 99 01/17/20 07:00 70 01/17/20 03:43 36.4 C L 87 23 179/80 H 97 01/17/20 03:39 77 16 90 PG Care Time/CCT Total # of Minutes Spent Total Time Spent with Patient: Total time spent is greater than 50% in coordination of care (as documented) at patient's floor/unit and/or counseling patient: Coding Level of Care Code 95990 Subseq Hosp Care Lvl 2 Diagnoses Acute and chronic respiratory failure J96.21; J96.22 Respiratory failure complication: hypoxia and hypercapnia COPD (chronic obstructive pulmonary disease) J44.9 COPD type: unspecified COPD Obstructive sleep apnea G47.33 Type 2 diabetes mellitus E11.9 Constipation K59.00 Obesity hypoventilation syndrome E66.2 Hypercapnic respiratory failure J96.92 Diastolic dysfunction I51.89 Oral thrush B37.0 (1) Acute and chronic respiratory failure Respiratory failure complication: hypoxia and hypercapnia Qualified Code(s): J96.21 - Acute and chronic respiratory failure with hypoxia; J96.22 - Acute and chronic respiratory failure with hypercapnia (2) COPD (chronic obstructive pulmonary disease) COPD type: unspecified COPD Qualified Code(s): J44.9 - Chronic obstructive pulmonary disease, unspecified
[2020-01-17] MEDS ORDERED: GLYCERIN ADULT 12 SUPP/BOX SUPP PR ONE (18:23)
[2020-01-17] MEDS ORDERED: SENNA 8.6 MG TAB PO SCH (21:00)
[2020-01-17] MEDS ORDERED: bisacodyL 10 MG SUPP PR ONE (21:00)
[2020-01-18] MEDS: BACLOFEN 10 MG TAB PO PRN (04:16)
[2020-01-18] MEDS: LEVALBUTEROL 1.25MG/0.5ML NEB INH SCH ×2 (06:58→10:49)
[2020-01-18] MEDS: BUDESONIDE 0.5 MG/2 ML VIAL (PULMICORT) INH SCH (06:58)
[2020-01-18] MEDS: IPRATROPIUM BROMIDE NEB SOLN 0.02% 2.5 ML VIAL INH SCH ×2 (06:58→10:49)
[2020-01-18] MEDS ORDERED: MINERAL OIL ENEMA 133 ML BTL PR PRN (08:11)
[2020-01-18] MEDS: POTASSIUM CHLORIDE PWD 20 MEQ PACK PO SCH (08:36)
[2020-01-18] MEDS: predniSONE 10 MG TABLET PO SCH (08:37)
[2020-01-18] MEDS: guaiFENesin 600 MG TABCR PO SCH (08:38)
[2020-01-18] MEDS: UMECLIDINIUM/VILANTEROL 62.5/25MCG 7 PUFFS/INHALER INH SCH (08:39)
[2020-01-18] MEDS: NYSTATIN SUSP 500,000 U/5 ML UDC PO SCH ×2 (08:39→12:14)
[2020-01-18] MEDS: FUROSEMIDE 40 MG TAB PO SCH (08:39)
[2020-01-18] MEDS: DOCUSATE SODIUM 100 MG CAP PO SCH (08:39)
[2020-01-18] MEDS: PRAVASTATIN SOD 40 MG TAB PO SCH (08:40)
[2020-01-18] MEDS: PANTOprazole 40 MG TAB PO SCH (08:40)
[2020-01-18] MEDS: INSULIN ASPART 100 UNITS/ML 3 ML PEN SC SCH ×2 (08:42→12:14)
[2020-01-18] MEDS ORDERED: INSULIN HUMAN NPH SC SCH (09:00)
--- NOTE | 2020-01-18 09:07 | Pharmacy Report ---
Pharmacy Glycemic Short Note 2 - Date of Service January 18, 2020 - Glycemic Short BSG Results (Last 24 hours): 01/17/20 01/17/20 01/17/20 11:36 16:27 20:22 POC Glucose 106 H 192 H 124 H 01/18/20 07:54 POC Glucose 90 OUTPATIENT ANTIDIABETIC REGIMEN: * Metformin 1 g PO daily * A1c = 6.0% on 12/17/19 ASSESSMENT: 01/17/20: * Steroids continue to taper - prednisone reduced from 40mg --> 30mg today. * AM fasting BSG slightly below goal range at 90mg/dl this AM; will reduce basal insulin * Will loosen Cf/CR with step down in steroid dosing. 01/16/20: * Patient's steroids have begun to taper. Dose reduced from 40mg --> 30mg today (x2 days, then further taper). * BSGs have been relatively well-controlled, with the exception of pre-dinner BSG. * Since evening BSGs have been somewhat elevated, NPH reduced this morning, but not in proportion to prednisone taper, in an effort to reduce PM hyperglycem ia. Will continue to adjust NPH as prednisone tapers. 01/13 * Patient received 38 units of insulin yesterday, 15 of this is NPH to cover once daily prednisone * Fasting BSG stable but postprandial BSGs elevated with improved PO intake. NPH can be increased further to cover the spike in BSGs from prednisone. * No changes to causes of insulin resistance 01/12 * 64 year old female admitted on 01/06/20 with SOB, COPD, acute on chronic respiratory failure, and pneumonia * No changes to stressors noted today * NPH being utilized as basal insulin 2nd pharmacokinetic similarities to AM prednisone-induced insulin resistance * AM fasting BSG at/near goal - will continue NPH at same dose * PO intake improved/increased yesterday. Two post-prandial BSG's >180 mg/dL in response - will tighten Novolog CHO ratio PLAN FOR INPATIENT GLYCEMIC CONTROL: * Hold outpatient oral diabetes medications * Basal insulin: decrease * NPH 12 units qAM, while on prednisone 20mg * Hold if prednisone is held * Bolus insulin - loosen parameters * NovoLog per scale ACHS or Q6hrs while NPO * Goal Range: Low 110 mg/dL - High 140 mg/dL * Correction Factor: 30 mg/dL/unit * Nutritional / Prandial insulin per carb ratio of 1 unit per 12 grams CHO consumed PLAN FOR DISCHARGE: * Patient with good outpatient T2DM control as per A1c 6% on 12/17/19. Goal A1c < 7%. * Continue metformin upon discharge. * If patient ends up being discharged with ongoing steroids, regimen may require adjustment.
--- NOTE | 2020-01-18 13:27 | Discharge Summary ---
Date of Service January 18, 2020 Admission HPI Per Admitting Provider Sheri Landeros is a 64y/o F with PMH significant for COPD, diastolic heart dysfunction, CAD, and respiratory failure that presented the ER for shortness of breath and weakness. Patient notes that she tried to walk to the bathroom when she started to feel short of breath, and then after returning to the couch felt in significant shortness of breath and on her home pulse ox she noticed that she desatted to 76%, as a result of this she used her inhaler and increased her oxygen flow, but despite this the reading on her pulse ox would not elevate. She feels that she is too weak to get up or move around. She was recently admitted and discharged and treated for COPD exacerbation. Patient denies any new changes in medications. Denies any fevers. Does admit to yellow productive cough which has been significantly worse over the past 3 days. Denies any trips or travel. He lives at home with son, [id number], and grandson; [id number] and grandson were sick several weeks ago, prior to her previous admission, but have been well since she returned to their home; no known exposure to someone with COVID diagnosis or pending lab. Admission Exam Per Admitting Provider Constitutional: WD/WN, vitals as above Eyes: PERRL, conjunctivae normal, anicteric sclerae ENMT: external ear and nose normal, oropharynx normal Neck: normal visual inspection Respiratory: able to speak in complete sentences and symmetric chest movement; no cough Auscultation: + diminished lung sounds (lower lobes b/l) and + wheezes; no crackles and no rales Cardiovascular: Rate/Rhythm: regular rate and regular rhythm Heart Sounds: normal S1 and normal S2; no gallop, no murmur and no cardiac rub Vessels: no JVD Extremities: + pedal edema Gastrointestinal (Abdomen): normal bowel sounds, soft, nontender, no hepatosplenomegaly Musculoskeletal: no cyanosis or clubbing, extremities motor strength 5/5 Skin: no rashes, warm and dry Neurologic: normal touch/pain/proprioception, CN's II-XI intact bilaterally, plantar reflexes intact bilaterally, moves all extremities and awake Psychiatric: A+Ox3, euthymic affect Lymphatic: no cervical or axillary lymphadenopathy Principal Diagnosis Acute on chronic hypoxic respiratory failure COPD exacerbation Heart failure with preserved ejection fraction Obesity, constipation and bloating causing restrictive lung disease Discharge Exam Constitutional well developed and + morbidly obese; no acute distress Eyes + anicteric sclerae; normal pupil size ENMT external ear and nose normal, oropharynx normal Neck trachea midline Respiratory normal respiratory effort; no respiratory distress, no labored breathing, does not use accessory muscles and no cough Auscultation: + diminished lung sounds (poor inspiratory effort throughout); no crackles, no rales, no rhonchi and no wheezes Cardiovascular Rate/Rhythm: regular rate and regular rhythm Heart Sounds: normal S2; no murmur Extremities: + pedal edema Gastrointestinal (Abdomen) Inspection/Auscultation: + abdomen distended and normal bowel sounds Percussion/Palpation: abdomen soft; abdomen nontender, no guarding and abdomen not rigid Neurologic moves all extremities and awake; not confused Psychiatric Orientation: alert and oriented x 3 Affect: + depressed affect Discharge Data Allergies Allergy/AdvReac Type Severity Reaction Status Date / Time codeine AdvReac Mild SHAKING Verified 12/30/19 09:28 oxycodone AdvReac Unknown rash/shakes Verified 12/30/19 09:28 Consultations 01/06/20 22:03 ED Decision to Admit Stat Ordered Studies 01/09/20 20:11 CT angio chest PE protocol Stat 01/09/20 20:12 US venous doppler LE Stat Hospital Course (1) Acute and chronic respiratory failure: Sheri Landeros is a 64 year old female admitted to [facility] from January 05 to 2019 due to shortness of breath and generalized weakness. She was diagnosed with acute on chronic respiratory failure suspected to be multifactorial with pulmonary vascular congestion, still recovering from recent COPD exacerbation (treated with additional prednisone taper), bronchiolitis noted on CT, pulmonary vascular congestion, obstructive sleep apnea, obesity hypoventilation syndrome and restrictive lung disease from abdominal bloating and constipation. Diuretics mainly caused a contraction alkalosis. Her stay was prolonged due to constipation that was difficult to treat and suspected to be contributing towards her overall restrictive lung disease. This was relieved with suppositories, GoLYTELY and Senna. Bowel regimen was increased to avoid constipation in the future as I suspect this had a lot to do with . She was advised to have a Gastrografin enema given prior concerns for possible stricture but refused this at the current time. If she is amenable in the future I would recommend referral to gastroenterology. She was advised to turn down her oxygen levels to 5 liters to avoid retaining CO2. In addition she had oral thrush which was treated with nystatin. (2) COPD (chronic obstructive pulmonary disease): (3) Obstructive sleep apnea: (4) Type 2 diabetes mellitus: (5) Constipation: (6) Obesity hypoventilation syndrome: (7) Hypercapnic respiratory failure: (8) Diastolic dysfunction: (9) Oral thrush: Total Time Total Time Spent Total Time Spent (In Minutes): 35 Total Time Includes: Examination of the Patient, Discharge Planning and Medication Reconciliation Discharge Plan Discharge Items Patient Disposition: Home - Home Health Services Reason For Visit: Shortness of breath Discharge Diagnosis: COPD exacerbation Heart failure with preserved ejection fraction Obesity, constipation and bloating causing restrictive lung disease Condition on Discharge: Fair Activity: Resume your previous activity Non-emergency contact: Primary Care Provider Call non-emergency contact if: you have any medication questions and your symptoms worsen Follow-up/Referrals: Beatriz Baker, [Primary Care Provider] - (Can be telehealth appointment. Recommend follow up within 7 days of discharge) Diet: Carb Consistent or DM2 Addtl Attending Provider Instructions: You were admitted to [facility] from January 05 to 2019 du e to shortness of breath and generalized weakness. You were diagnosed with acute on chronic respiratory failure suspected to be multifactorial with pulmonary vascular congestion, still recovering from recent COPD exacerbation, bronchiolitis noted on CT, pulmonary vascular congestion, obstructive sleep apnea, obesity hypoventilation syndrome and restrictive lung disease from abdominal bloating and constipation. Please continue prednisone taper as prescribed. Continue your usual nebulizer and inhaler regimen (prescriptions updated to reflect your usual regimen). Aim for at least 1 good bowel movement a day using docusate (stool softener), MiraLAX (osmotic laxative) and Senna (stimulant laxative). If having diarrhea (>4 bowel movements a day) recommend using the senna only as needed. In addition you were diagnosed with oral thrush. This improved with nystatin swish and swallow. Please continue full course for 10 days. This is likely due to your nebulized steroid (budesonide) and recommend washing your mouth out every time you use this to ensure it does not return. Kind regards, Dr Tam Millard Pending Studies at Discharge: No Stand-Alone Forms: My [facility], Smoking Cessation Medications and DC Order Prescriptions: New sennosides [Senokot] 8.6 mg Tablet 17.2 mg PO QAM 30 Days Qty: 60 RF: 0 guaifenesin [Mucinex] 600 mg Tablet Extended Release 12hr 1,200 mg PO Q12 PRN (Reason: cough) Qty: 30 RF: 0 nystatin 100,000 unit/mL Suspension 5 ml PO QID 7 Days Qty: 140 RF: 0 polyethylene glycol 3350 [Miralax] 17 gram powder in packet 17 gm PO BID Qty: 30 RF: 0 prednisone 10 mg Tablet See Rx Instructions .ROUTE .COMPLEX Qty: 7 RF: 0 Continued ergocalciferol (vitamin D2) 50,000 unit capsule 50,000 units PO WEEKLY Qty: 12 RF: 3 pantoprazole 40 mg tablet,delayed release (DR/EC) 40 mg PO DAILY Qty: 90 RF: 1 albuterol sulfate [Ventolin HFA] 90 mcg/actuation HFA aerosol inhaler 1 - 2 puffs INH Q6H PRN (Reason: shortness of breath or wheezing) Qty: 18 RF: 5 metformin 500 mg tablet extended release 24 hr 1,000 mg PO DAILY Qty: 180 RF: 1 pravastatin 80 mg tablet 80 mg PO DAILY Qty: 30 RF: 5 budesonide 0.5 mg/2 mL suspension for nebulization 0.5 mg inhalation BID Qty: 120 RF: 5 mupirocin 2 % ointment 1 appln topical BID Qty: 22 RF: 1 triamcinolone acetonide 0.1 % cream 1 applic TOPICAL BID Qty: 80 RF: 1 ipratropium bromide 0.02 % solution 2.5 ml INHALATION QID Qty: 62.5 RF: 5 Bevespi Aerosphere 9-4.8 mcg HFA aerosol inhaler 2 puff INHALATION AMPM Qty: 10.7 RF: 3 Hold Instructions: no samples, insurance coverage - trial stiolto docusate sodium 100 mg tablet 100 mg PO BID Qty: 60 RF: 5 furosemide 40 mg tablet 40 mg PO DAILY Qty: 90 RF: 1 betamethasone dipropionate 0.05 % ointment 1 appln topical BID Qty: 1 RF: 0 tramadol 50 mg tablet 50 mg PO Q8H PRN (Reason: pain) Qty: 30 RF: 0 albuterol sulfate 2.5 mg /3 mL (0.083 %) solution for nebulization 2.5 mg inhalation Q4H PRN (Reason: wheezing) Qty: 2 RF: 5 baclofen 10 mg tablet 10 - 20 mg PO TID PRN (Reason: Muscle Spasm) RF: 0 Discontinued tiotropium-olodaterol [Stiolto Respimat] 2.5-2.5 mcg/actuation mist 1 puff inhalation DAILY RF: 0 polyethylene glycol 3350 17 gram/dose powder 17 - 34 gm PO DAILY PRN (Reason: constipation) RF: 0 Discharge Orders: Discharge Order (Routine); Ordered 01/18/20 Ordered By: Tam Paredes/Other Patient Handouts: Constipation Admission Data Admit Date/Time: 01/08/20 21:51 Attending Provider: Tam Millard Admit Provider: Ovidio Angelo Primary Care Provider: Beatriz Baker Other Providers: Harmeet Steward ; Juan Thurman Other Interventions: Discharge Summary Assessment (RN) Last Done: 01/18/20 12:42 DC Date/Time DO NOT enter until pt leaves facility: 01/18/20 15:35 Coding Level of Care Code D/C Day Management >30 mins Diagnoses Acute and chronic respiratory failure J96.21; J96.22 Respiratory failure complication: hypoxia and hypercapnia COPD (chronic obstructive pulmonary disease) J44.9 COPD type: unspecified COPD Obstructive sleep apnea G47.33 Type 2 diabetes mellitus E11.9 Constipation K59.00 Obesity hypoventilation syndrome E66.2 Hypercapnic respiratory failure J96.92 Diastolic dysfunction I51.89 Oral thrush B37.0
[2020-01-19] MEDS ORDERED: INSULIN HUMAN NPH SC SCH (09:00)
== END 2020-01-18 15:35 | disposition home health service (06) | DRG 190 ==
LOC: ED 19:58 → 2N 19:58 → SUATTDRO 23:22 → 2N 23:53 → SUATTDRO 01-08 21:51 → 2N 01-15 17:23

== ENCOUNTER 2020-10-09 17:55 | Inpatient (IN) ==
--- NOTE | 2020-10-09 18:07 | Emergency Department Note ---
Impression & Plan Weakness, Chronic respiratory failure, High serum chloride ED Provider Note NAME: JASON MORILLO AGE: 64 SEX: F : 1955 ARRIVES VIA: Ambulance INFORMANT: Patient ED PROVIDER(S): Trino Bynum DO CHIEF COMPLAINT: Weakness HPI: Patient is a 64-year-old female who presents the ER for weakness. Patient was seen and evaluated here and admitted on 29 September for COPD exacerbation with possible pneumonia. There is a questionable colonic obstruction and yahir luated by GI and transferred to [facility]. This eventually resolved and she was discharged today. She is on her 6 L nasal cannula. She was Covid tested multiple times and always negative. She got home and was unable to get into the house. She is too weak. They are unsure if there is any PT or OT set up. She denies any headache or change in vision. No chest pain or shortness of breath. No nausea vomiting or diarrhea. No dysuria urgency or frequency. ROS: See above HPI for pertinent positives & negatives. A total of 10 systems reviewed and were otherwise negative. PAST MEDICAL HISTORY:See Below PAST SURGICAL HISTORY:See Below FAMILY HISTORY:See Below SOCIAL HISTORY:See Below HOME MEDICATIONS:See Below ALLERGIES:See Below VITALS:See Below PHYSICAL EXAMINATION: GENERAL: Sitting up in bed, alert, morbidly obese, chronically ill-appearing, disheveled, on nasal cannula EYE EXAM: normal conjunctiva. OROPHARYNX: Moist mucous membranes NECK: supple, no nuchal rigidity, no adenopathy, non-tender LUNGS: Diminished bilaterally. Normal chest wall mechanics HEART: no murmurs, S1 normal and S2 normal ABDOMEN: abdomen soft, non-tender, normo-active bowel sounds, no masses, no rebound or guarding. BACK: Back is symmetrical on inspection and there is no deformity, no midline tenderness, no CVA tenderness. SKIN: Diffuse bruising on belly and arms UPPER EXTREMITIES: upper extremities are grossly normal. LOWER EXTREMITIES: No pitting edema. Calves are equal bilateral NEURO EXAM: Normal sensorium, cranial nerves II-XII grossly intact, normal speech, no gross weakness of arms, no gross weakness of legs. MEDICAL DECISION MAKING: Patient is a 64-year-old female chronically ill-appearing who was just discharged from [facility] and got home. She was too weak to get into the house. EMS was called and she was brought back into the ER. She was admitted here on the and then transferred to [facility]. IV was established blood work was obtained. Labs show no significant leukocytosis or anemia. BMP with slightly elevated chloride. LFTs bilirubin and troponin was negative. Covid was negative. Chest x-ray without significant pathology. Patient was updated bedside discussed with hospitalist she will likely need placement cannot go home at this point. She remained comfortable on her 6 L nasal cannula. Patient was updated bedside and admitted for further work-up Triage Nursing notes reviewed. Prior medical records reviewed Vital Signs: reviewed and remarkable for no significant abnormalities Differential diagnosis: Infection, dehydration, metabolic abnormality, hypo/hyperglycemia, electrolyte disturbance, anemia, hypoxia, cardiac sources, intracerebral event, toxicologic, neurologic, as well as other pathologies. ER treatment provided: See below Diagnostics interpreted by me: ECG: none Cardiac Monitoring: An order was placed for continuous cardiac monitoring. The monitor shows a rate of 90 with sinus rhythm. Laboratory studies: As stated above and show below. Imaging studies: Portable AP upright 1 view chest shows no focal infiltrate Consultation(s): Discussed with hospitalist for further evaluation ED COURSE: Procedures: none Critical Care: None Past Med/Surg History Medical History Chronic back pain Chronic renal insufficiency Chronic respiratory failure Chronic venous insufficiency Diastolic dysfunction History of umbilical hernia hernia repair Hypertriglyceridemia Lymphedema Osteoarthritis Osteoporosis Pulmonary nodules Vitamin D deficiency Surgical History History of cholecystectomy Hx of umbilical hernia repair Family History Sister Colorectal cancer Breast cancer Denies family history of Ovarian cancer Prostate cancer Myocardial infarction Social History Smoking Status: Former smoker Tobacco Type: Cigarettes Age Started Using Tobacco: 17; Age Quit Using Tobacco: 49; packs per day: 2; Cigarettes Per Day: 2 ppd quit 15 yrs ago; Second Hand Exposure: No; Do You Dip or Chew Tobacco: No; Tobacco Cessation Education Requested by Patient: No Hx Alcohol Use: No Hx Substance Use: No Preferred Language: Cambodian Communication Ability: Effective Visual Impairment: Limited Hearing Ability: Normal Dry Chain Operator Required: No Beliefs That Will Affect Care: None marital status: Current Living Situation: Other Current Living Situation Comment: Lives with son, was just discharged from [facility] current occupational status: retired Other Information That Helps Us Care for You: No Feels Safe at Home: Yes Childhood Exposure to Second-Hand Smoke: No caffeine: Yes (coffee x 1 per day Iced tea x 1 glass per day.) during the past year weight has: remained stable Dental Care, Regularly: No Physical Activity Frequency: Does not Exercise Seatbelt Use: always Sunscreen Use: No Assistive Devices: Oxygen - Continuous Allergies Allergies Allergy/AdvReac Type Severity Reaction Status Date / Time codeine AdvReac Mild SHAKING Verified 10/09/20 21:54 oxycodone AdvReac Unknown rash/shakes Verified 10/09/20 21:54 Home Meds Home Medications Medication Instructions Recorded Confirmed baclofen 10 mg PO BID 09/29/20 10/09/20 albuterol sulfate [Ventolin HFA] 2 inh INH QID PRN 10/09/20 10/09/20 docusate sodium 100 mg PO BID 10/09/20 10/09/20 furosemide 40 mg PO DAILY 10/09/20 10/09/20 glycopyrrolate-formoterol [Bevespi 2 puff INHALATION BID 10/09/20 10/09/20 Aerosphere] metformin 1,000 mg PO BID 10/09/20 10/09/20 sennosides 8.6 mg PO DAILY 10/09/20 10/09/20 Previous Rx's Medication Instructions Recorded pravastatin 80 mg tablet 80 mg PO DAILY #30 tab 04/09/20 pantoprazole 40 mg tablet,delayed 40 mg PO DAILY #90 tab 06/24/20 release loratadine 10 mg tablet 10 mg PO DAILY #30 tab 06/29/20 budesonide 0.5 mg/2 mL suspension 0.5 mg INHALATION BID #120 ml 09/04/20 for nebulization ipratropium bromide 0.02 % 2.5 ml INHALATION QID #187.5 ml 09/04/20 solution for inhalation tramadol 50 mg tablet 50 mg PO TID PRN #30 tab 09/30/20 Results & Data (ED) Vital Signs Vital Signs - 24 hr 10/09/20 18:04 10/09/20 18:58 10/09/20 19:47 Temperature 37.3 C Temperature Source Oral Pulse Rate 85 80 Pulse Rate from SpO2 Sensor 40 L Pulse Rhythm Regular Pulse Strength Normal Respiratory Rate 16 22 Respiratory Effort / Characteristics Non-Labored Respiratory Depth Normal Respiratory Pattern Regular Blood Pressure 125/68 171/67 H Blood Pressure Mean 87 100 Blood Pressure Position Sitting Pulse Oximetry 100 100 100 Oxygen Delivery Method Nasal Cannula Oxygen Flow Rate 6 6 Sepsis Recent Fever Within 48 Hours No Sepsis New/Unexplained Change in Mental Status N/A Sepsis Action Taken by Nursing No Action Required 10/09/20 20:01 10/09/20 20:10 10/09/20 21:00 Temperature Temperature Source Pulse Rate 79 80 82 Pulse Rate from SpO2 Sensor 81 Pulse Rhythm Pulse Strength Respiratory Rate 24 38 H 22 Respiratory Effort / Characteristics Respiratory Depth Respiratory Pattern Blood Pressure 177/53 H 183/68 H Blood Pressure Mean 74 95 Blood Pressure Position Pulse Oximetry 100 Oxygen Delivery Method Nasal Cannula Oxygen Flow Rate 6 6 Sepsis Recent Fever Within 48 Hours Sepsis New/Unexplained Change in Mental Status Sepsis Action Taken by Nursing Laboratory Data Result diagrams: 10/09/20 19:25 10/09/20 19:25 Lab Results 10/09/20 10/09/20 10/09/20 Range/Units 19:25 19:25 20:14 WBC 8.58 (4.8-10.8) K/uL RBC 4.49 (4.2-5.4) M/uL Hgb 12.0 (12.0-16.0) g/dL Hct 41.1 (37-47) % MCV 91.5 (80-100) fL MCH 26.7 (25-34) pg MCHC 29.2 L (32-36) g/dL RDW Std Deviation 50.0 H (36.4-46.3) fL RDW Coeff of Ana 15.0 H (11.5-14.5) % Plt Count 131 (130-400) K/uL MPV 11.8 H (7.4-10.4) fL Immature Gran % (Auto) 0.8 % Neut % (Auto) 75.9 % Lymph % (Auto) 12.2 % [place] % (Auto) 9.3 % Eos % (Auto) 1.7 % Baso % (Auto) 0.1 % Neut # (Auto) 6.50 (1.4-6.5) K/uL Lymph # (Auto) 1.05 L (1.2-3.4) K/uL Sol[place] # (Auto) 0.80 H (0.11-0.59) K/uL Eos # (Auto) 0.15 (0-0.5) K/uL Baso # (Auto) 0.01 (0-0.2) K/uL Immature Gran # (Auto) 0.07 H (0.00-0.02) K/uL Sodium 145 (136-145) mmol/L Potassium (3.5-5.1) mmol/L Chloride 109 H (98-107) mmol/L Carbon Dioxide 32 (21-32) mmol/L Anion Gap 4.0 (3-11) BUN 27 H (7-18) mg/dl Creatinine 1.19 (0.6-1.2) mg/dl Est Cr Clr Drug Dosing 51.9 ml/min Est GFR ( Amer) 55.5 Est GFR (Non-Af Amer) 47.9 BUN/Creatinine Ratio 22.7 H (10-20) Glucose 121 H (70-99) mg/dl Calcium 9.7 (8.5-10.1) mg/dl Magnesium (1.8-2.4) mg/dl Total Bilirubin 0.4 (0.2-1) mg/dl AST (15-37) U/L ALT 12 (12-78) U/L Alkaline Phosphatase 79 (45-117) U/L Troponin I < 0.015 (0-0.045) ng/ml Total Protein 6.3 L (6.4-8.2) gm/dl Albumin 2.7 L (3.4-5.0) gm/dl Globulin 3.6 (2.5-4.0) gm/dl Albumin/Globulin Ratio 0.8 L (0.9-2) TSH 4.610 H (0.300-4.500) uIu/ml Free T4 0.87 (0.8-1.6) ng/dl COVID-19 Eval Order Covid19 IDNow [facility] SARS-CoV-2, RNA, NAAT (NEGATIVE) 10/09/20 Range/Units 20:14 WBC (4.8-10.8) K/uL RBC (4.2-5.4) M/uL Hgb (12.0-16.0) g/dL Hct (37-47) % MCV (80-100) fL MCH (25-34) pg MCHC (32-36) g/dL RDW Std Deviation (36.4-46.3) fL RDW Coeff of Ana (11.5-14.5) % Plt Count (130-400) K/uL MPV (7.4-10.4) fL Immature Gran % (Auto) % Neut % (Auto) % Lymph % (Auto) % [place] % (Auto) % Eos % (Auto) % Baso % (Auto) % Neut # (Auto) (1.4-6.5) K/uL Lymph # (Auto) (1.2-3.4) K/uL Sol[place] # (Auto) (0.11-0.59) K/uL Eos # (Auto) (0-0.5) K/uL Baso # (Auto) (0-0.2) K/uL Immature Gran # (Auto) (0.00-0.02) K/uL Sodium (136-145) mmol/L Potassium (3.5-5.1) mmol/L Chloride (98-107) mmol/L Carbon Dioxide (21-32) mmol/L Anion Gap (3-11) BUN (7-18) mg/dl Creatinine (0.6-1.2) mg/dl Est Cr Clr Drug Dosing ml/min Est GFR ( Amer) Est GFR (Non-Af Amer) BUN/Creatinine Ratio (10-20) Glucose (70-99) mg/dl Calcium (8.5-10.1) mg/dl Magnesium (1.8-2.4) mg/dl Total Bilirubin (0.2-1) mg/dl AST (15-37) U/L ALT (12-78) U/L Alkaline Phosphatase (45-117) U/L Troponin I (0-0.045) ng/ml Total Protein (6.4-8.2) gm/dl Albumin (3.4-5.0) gm/dl Globulin (2.5-4.0) gm/dl Albumin/Globulin Ratio (0.9-2) TSH (0.300-4.500) uIu/ml Free T4 (0.8-1.6) ng/dl COVID-19 Eval Order SARS-CoV-2, RNA, NAAT NEGATIVE (NEGATIVE) Discharge Plan Visit Data Chief Complaint: Weakness ED Provider: Trino Bynum Discharge Problem: Weakness, Chronic respiratory failure, High serum chloride Patient Disposition: Admitted As Inpatient Discharge Instructions Interventions: ED Discharge Assessment Last Done: 10/09/20 22:02 Discharge Problem: Chronic respiratory failure Qualifiers: Respiratory failure complication: unspecified whether with hypoxia or hypercapnia Qualified Code(s): J96.10 - Chronic respiratory failure, unspecified whether with hypoxia or hypercapnia
--- NOTE | 2020-10-09 18:27 | XRay Report ---
XR chest 1V portable CLINICAL HISTORY: weakness COMPARISON STUDY: 10/04/2020 FINDINGS: The heart remains mildly enlarged. There has been interval removal of the nasogastric tube. There are persistent patchy airspace opacities at the right lung base similar to the prior study. Th león can be atelectatic or infectious/inflammatory[ IMPRESSION: 1. Resolution of the previously described congestive failure 2. Persistent right basilar airspace opacities, atelectatic versus infectious/inflammatory 3. Interval removal of the nasogastric tube ACT 112: Negative or not required by law. Electronically signed by: Remy Peacock M.D. 10/09/2020 6:25 PM
[2020-10-09 19:38] LABS: Basophils # (auto) 0.01 K/uL (0-0.2); Basophils % (auto) 0.1 %; Eosinophils # (auto) 0.15 K/uL (0-0.5); Eosinophils % (auto) 1.7 %; Hematocrit (blood only) 41.1 % (37-47); Immature Granulocytes # (auto) 0.07 K/uL (0.00-0.02); Immature Granulocytes % (auto) 0.8 %; Lymphocytes # (auto) 1.05 K/uL (1.2-3.4); Lymphocytes % (auto) 12.2 %; Mean Corpuscular Hemoglobin 26.7 pg (25-34); Mean Corpuscular Hgb Conc 29.2 g/dL (32-36); Mean Corpuscular Volume 91.5 fL (80-100); Mean Platelet Volume 11.8 fL (7.4-10.4); Monocytes % (auto) 9.3 %; Neutrophils % (auto) 75.9 %; Platelet Count 131 K/uL (130-400); Red Blood Count 4.49 M/uL (4.2-5.4); White Blood Count 8.58 K/uL (4.8-10.8)
[2020-10-09 19:59] LABS: Alanine Aminotransferase 12 U/L (12-78); Albumin Level 2.7 gm/dl (3.4-5.0); BUN Creatinine Ratio 22.7 (10-20); Blood Urea Nitrogen 27 mg/dl (7-18); Calcium 9.7 mg/dl (8.5-10.1); Carbon Dioxide 32 mmol/L (21-32); Chloride 109 mmol/L (98-107); Creatinine Clr Calc Pharmacy 51.9 ml/min; Est GFR (African American) 55.5; Est GFR (Non-African American) 47.9; Glucose 121 mg/dl (70-99); Sodium 145 mmol/L (136-145)
[2020-10-09 20:15] LABS: Albumin Globulin Ratio 0.8 (0.9-2); Alkaline Phosphatase 79 U/L (45-117); Bilirubin,Total 0.4 mg/dl (0.2-1); Globulin 3.6 gm/dl (2.5-4.0); Total Protein 6.3 gm/dl (6.4-8.2); Troponin I < 0.015 ng/ml (0-0.045)
[2020-10-09 20:29] LABS: T4 Free Thyroxine 0.87 ng/dl (0.8-1.6)
--- NOTE | 2020-10-09 21:23 | History & Physical Report ---
Date of Service October 09, 2020 Assessment & Plan (1) Ambulatory dysfunction: Sheri Landeros is a 64 y/o with past medical hx of chronic hypoxic failure on 6L O2 NC at home, COPD requiring recent intubation, sigmoid stricture of colon recent transfer from here to [facility], morbid obesity, HTN, CAD, ROZ, GERD, chronic back pain, who presented to [facility] ED for CC of Weakness. - She was discharged from [facility] today. [facility] records reviewed and they recommended inpatient PT but patient refused and wanted to go home with her son with PT/OT. After driving home from hospital, she was unable to get out of car to get into house today from weakness to ambulate. She was then brought here to [facility] ED. - PT/OT ordered - Suspect from deconditioning from lengthy stay and inability to support ambulation in setting of morbid obesity. - No significant electrolyte abnormalities. Glucose level 121. - Will need Case management help with rehab services once evaluated by rehab, otherwise will continue routine home meds. Dipso: Obs, Med/surg, discharge pending rehab placement Code: Full Code DVT ppx: Heparin 7500 units TID FENGI: Heart healthy, DM2. C/w home PPI (2) Weakness: as above (3) Chronic respiratory failure: continue with home O2 requirement of 6L NC (4) Stricture of sigmoid colon: Recently required transfer to [facility] from here on 10/07-10/09. Discharged today. Dx: with overall colonic dysmotility. Symptoms resolved and did not require surgical intervention. (5) GERD (gastroesophageal reflux disease): continue home PPI Pantoprazole (6) DVT prophylaxis: Heparin 7500 units TID (7) COPD (chronic obstructive pulmonary disease): continue with home O2 requirement of 6L NC No signs of acute exacerbation (8) ROZ (obstructive sleep apnea): BIPAP for HS and naps Settings 17.6 (9) CAD (coronary artery disease): records reviewed from [facility]. Echo on 10/08: EF 65-70% (10) Hyperkalemia: Original value in ED with elevated K which was hemolyzed sample Repeat pending, no signs of ARF History of Present Illness Chief Complaint: Weakness, Ambulatory dysfunction Primary Care Provider: Beatriz Baker DO Caveat: History Limited by - poor cooperation. Sheri Landeros is a 64 y/o with past medical hx of chronic hypoxic failure on 6L O2 NC at home, COPD requiring recent intubation, sigmoid stricture of colon recent transfer from here to [facility], morbid obesity, HTN, CAD, ROZ, GERD, chronic back pain, who presented to [facility] ED for CC of Weakness. She was discharged from [facility] today. She recently had prolonged hospitalization (09/29-10/07) here at [facility] treated for pneumonia. She also had ICU stay with intubation and mechanical ventiliation for acute on chronic resp failure. She later developed an ileus with increased abdominal distention with NG tube placement and had a strictured sigmoid colon. She was deemed too risky to perform procedure here because of poor chronic respiratory status. Her symptoms resolved at [facility] without need for intervention. She was discharged at [facility] today after two day stay. [facility] records reviewed and they recommended inpatient PT but patient refused and wanted to go home with her son with PT/OT. After driving home from hospital, she was unable to get out of car to get into house today from weakness to ambulate. She was then brought here to [facility] ED and requires rehab placement. There were no other acute complaints noted. Patient is not interested in answering questions and prefers to sleep. Nursing notes she had become tired after agitation with phlebotomy as she is a difficulty blood draw/IV access and also became agitated with COVID swab which she has had many recently. She notes she wears positive pressure ventilation for ROZ, which she was sleeping with only NC when I came into room for H+P. Allergies Allergy/AdvReac Type Severity Reaction Status Date / Time codeine AdvReac Mild SHAKING Verified 10/09/20 21:54 oxycodone AdvReac Unknown rash/shakes Verified 10/09/20 21:54 Home Medications Medication Instructions Recorded Confirmed Type pravastatin 80 mg tablet 80 mg PO DAILY #30 tab 04/09/20 10/09/20 Rx pantoprazole 40 mg tablet,delayed 40 mg PO DAILY #90 tab 06/24/20 10/09/20 Rx release loratadine 10 mg tablet 10 mg PO DAILY #30 tab 06/29/20 10/09/20 Rx budesonide 0.5 mg/2 mL suspension 0.5 mg INHALATION BID #120 ml 09/04/20 10/09/20 Rx for nebulization ipratropium bromide 0.02 % 2.5 ml INHALATION QID #187.5 ml 09/04/20 10/09/20 Rx solution for inhalation baclofen 10 mg PO BID 09/29/20 10/09/20 History tramadol 50 mg tablet 50 mg PO TID PRN #30 tab 09/30/20 10/09/20 Rx albuterol sulfate [Ventolin HFA] 2 inh INH QID PRN 10/09/20 10/09/20 History docusate sodium 100 mg PO BID 10/09/20 10/09/20 History furosemide 40 mg PO DAILY 10/09/20 10/09/20 History glycopyrrolate-formoterol [Bevespi 2 puff INHALATION BID 10/09/20 10/09/20 History Aerosphere] metformin 1,000 mg PO BID 10/09/20 10/09/20 History sennosides 8.6 mg PO DAILY 10/09/20 10/09/20 History Past Med/Surg History Medical History Chronic back pain Chronic renal insufficiency Chronic respiratory failure Chronic venous insufficiency Diastolic dysfunction History of umbilical hernia hernia repair Hypertriglyceridemia Lymphedema Osteoarthritis Osteoporosis Pulmonary nodules Vitamin D deficiency Surgical History History of cholecystectomy Hx of umbilical hernia repair Family History Sister Colorectal cancer Breast cancer Denies family history of Ovarian cancer Prostate cancer Myocardial infarction Social History Smoking Status: Former smoker Tobacco Type: Cigarettes Age Started Using Tobacco: 17; Age Quit Using Tobacco: 49; packs per day: 2; Cigarettes Per Day: 2 ppd quit 15 yrs ago; Second Hand Exposure: No; Do You Dip or Chew Tobacco: No; Tobacco Cessation Education Requested by Patient: No Hx Alcohol Use: No Hx Substance Use: No Preferred Language: Taiwanese Communication Ability: Effective Visual Impairment: Limited Hearing Ability: Normal Bleach Liquor Maker Required: No Beliefs That Will Affect Care: None marital status: Current Living Situation: Other Current Living Situation Comment: Lives with son, was just discharged from [place] current occupational status: retired Other Information That Helps Us Care for You: No Feels Safe at Home: Yes Childhood Exposure to Second-Hand Smoke: No caffeine: Yes (coffee x 1 per day Iced tea x 1 glass per day.) during the past year weight has: remained stable Dental Care, Regularly: No Physical Activity Frequency: Does not Exercise Seatbelt Use: always Sunscreen Use: No Assistive Devices: Walker Review of Systems Review of Systems: Unobtainable due to reduced consciousness Physical Exam Constitutional: + morbidly obese; no acute distress snoring, arouses to loud voice, not interested in talking and goes back to sleep. Answers questions appropriately. Then goes back to sleep and snores. Eyes: PERRL, conjunctivae normal, anicteric sclerae ENMT: Nose: no external nose abnormality Mouth: no lip abnormality Neck: trachea midline, no thyromegaly Respiratory: normal respiratory effort; no respiratory distress, no cough and not tachypneic Auscultation: no wheezes Cardiovascular: Rate/Rhythm: regular rate Extremities: + pedal edema (1+ pitting distal LE); no calf tenderness Gastrointestinal (Abdomen): Percussion/Palpation: abdomen soft; abdomen nontender, no guarding and abdomen not rigid hyperactive loud bowel sounds Musculoskeletal: Head/Neck/Chest: normocephalic and head atraumatic unable to participate in exam, poor cooperation, moves all extremities Skin: diffuse ecchymosis on forearms bilaterally in various stages of healing Neurologic: moves all extremities; no focal motor deficits unable to participate in exam, poor cooperation, moves all extremities Psychiatric: Orientation: oriented to person and oriented to place not oriented to why she is here in hospital. Results & Data Results & Data ([facility]) Vital Signs (Past 12 Hours) Vital Signs Temp Pulse Resp BP Pulse Ox 10/09/20 20:10 80 38 H 10/09/20 20:01 79 24 177/53 H 10/09/20 19:47 80 22 171/67 H 100 10/09/20 18:58 100 10/09/20 18:04 37.3 C 85 16 125/68 100 Laboratory Results Laboratory Results - last 24 hr 10/09/20 10/09/20 10/09/20 19:25 19:25 20:14 WBC 8.58 RBC 4.49 Hgb 12.0 Hct 41.1 MCV 91.5 MCH 26.7 MCHC 29.2 L RDW Std Deviation 50.0 H RDW Coeff of Ana 15.0 H Plt Count 131 MPV 11.8 H Immature Gran % (Auto) 0.8 Neut % (Auto) 75.9 Lymph % (Auto) 12.2 Kleberg % (Auto) 9.3 Eos % (Auto) 1.7 Baso % (Auto) 0.1 Neut # (Auto) 6.50 Lymph # (Auto) 1.05 L Kleberg # (Auto) 0.80 H Eos # (Auto) 0.15 Baso # (Auto) 0.01 Immature Gran # (Auto) 0.07 H Sodium 145 Potassium Chloride 109 H Carbon Dioxide 32 Anion Gap 4.0 BUN 27 H Creatinine 1.19 Est Cr Clr Drug Dosing 51.9 Est GFR ( Amer) 55.5 Est GFR (Non-Af Amer) 47.9 BUN/Creatinine Ratio 22.7 H Glucose 121 H Calcium 9.7 Magnesium Total Bilirubin 0.4 AST ALT 12 Alkaline Phosphatase 79 Troponin I < 0.015 Total Protein 6.3 L Albumin 2.7 L Globulin 3.6 Albumin/Globulin Ratio 0.8 L TSH 4.610 H Free T4 0.87 COVID-19 Eval Order Covid19 IDNow [facility] SARS-CoV-2, RNA, NAAT 10/09/20 20:14 WBC RBC Hgb Hct MCV MCH MCHC RDW Std Deviation RDW Coeff of Ana Plt Count MPV Immature Gran % (Auto) Neut % (Auto) Lymph % (Auto) Kleberg % (Auto) Eos % (Auto) Baso % (Auto) Neut # (Auto) Lymph # (Auto) Kleberg # (Auto) Eos # (Auto) Baso # (Auto) Immature Gran # (Auto) Sodium Potassium Chloride Carbon Dioxide Anion Gap BUN Creatinine Est Cr Clr Drug Dosing Est GFR ( Amer) Est GFR (Non-Af Amer) BUN/Creatinine Ratio Glucose Calcium Magnesium Total Bilirubin AST ALT Alkaline Phosphatase Troponin I Total Protein Albumin Globulin Albumin/Globulin Ratio TSH Free T4 COVID-19 Eval Order SARS-CoV-2, RNA, NAAT NEGATIVE Diagnostic Findings CXR 1V IMPRESSION: 1. Resolution of the previously described congestive failure 2. Persistent right basilar airspace opacities, atelectatic versus infectious/inflammatory 3. Interval removal of the nasogastric tube Code Status & VTE Plan Code Status Full Code VTE Prophylaxis Plan VTE Prophylaxis will be ordered: Yes Supervising Physician Co-Signing Physician Notes Attending addendum: I have physically seen this patient, have supervised the medical residents activities, and agree with the H&P unless as otherwise noted. Assessment and Plan: Ambulatory dysfunction/generalized weakness and disability- Patient had refused inpatient physical therapy dose recommended by [facility] upon her discharge earlier in the day today. Due to profound weakness upon arrival at home today, she was brought to the ED here for further assessment. We will consult case management, social media executive as patient cannot possibly go home in her current state, and no other active medical issues. We will continue all her routine medications. GERD- Continue pantoprazole COPD/ROZ/chronic respiratory failure- Continue home 6 L nasal cannula O2 Continue BiPAP at bedtime and with naps Sigmoid colon stricture- Conservative therapy at [facility] and did not require surgery Continue appropriate diet. Remaining orders and notations as noted Resident Activity Tracking Resident Involvement: Resident Care Provided Care Provided: Adult Hospital Medicine
[2020-10-09] MEDS ORDERED: ONDANSETRON INJ 2 MG/ML 2 ML VIAL IV PRN (22:41)
[2020-10-09] MEDS ORDERED: ACETAMINOPHEN 325 MG TAB PO PRN (22:41)
[2020-10-09] MEDS ORDERED: POLYETHYLENE (MIRALAX) 17 GM PACK PO PRN (22:41)
[2020-10-09] MEDS: IPRATROPIUM BROMIDE NEB SOLN 0.02% 2.5 ML VIAL INH SCH (23:51)
[2020-10-10] MEDS: HEPARIN SOD 5,000 UNIT/0.5 ML VIAL SQ SCH ×4 (01:23→21:13)
[2020-10-10] MEDS: IPRATROPIUM BROMIDE NEB SOLN 0.02% 2.5 ML VIAL INH SCH ×4 (07:16→19:28)
[2020-10-10] MEDS: BUDESONIDE 0.5 MG/2 ML VIAL (PULMICORT) INH SCH ×2 (07:16→19:28)
[2020-10-10 08:26] LABS: BUN Creatinine Ratio 22.4 (10-20); Calcium 9.4 mg/dl (8.5-10.1); Creatinine Clr Calc Pharmacy 54.8 ml/min; Est GFR (African American) 57.8; Est GFR (Non-African American) 49.9; Magnesium 2.1 mg/dl (1.8-2.4); Phosphorus 2.7 mg/dl (2.5-4.9); Potassium 2.7 mmol/L (3.5-5.1)
[2020-10-10] MEDS: amLODIPine BESYLATE 5 MG TAB PO SCH (09:00)
[2020-10-10] MEDS: LORATADINE 10 MG TAB PO SCH (09:00)
[2020-10-10] MEDS: UMECLIDINIUM/VILANTEROL 62.5/25MCG 7 PUFFS/INHALER INH SCH ×2 (09:00→09:02)
[2020-10-10] MEDS: ASPIRIN 81 MG ECTAB PO SCH (09:00)
[2020-10-10] MEDS ORDERED: UMECLIDINIUM/VILANTEROL 62.5/25MCG 7 PUFFS/INHALER INH SCH (09:00)
[2020-10-10] MEDS: DOCUSATE SODIUM 100 MG CAP PO SCH ×2 (09:01→21:14)
[2020-10-10] MEDS: PANTOprazole 40 MG TAB PO SCH (09:01)
[2020-10-10] MEDS: PRAVASTATIN SOD 40 MG TAB PO SCH (09:01)
[2020-10-10] MEDS: SENNA 8.6 MG TAB PO SCH (09:01)
[2020-10-10] MEDS: FUROSEMIDE 40 MG TAB PO SCH (09:01)
[2020-10-10] MEDS ORDERED: POTASSIUM CHLORIDE CRTAB 20 MEQ TABCR PO ONE (10:56)
--- NOTE | 2020-10-10 11:07 | Electrocardiogram Report ---
Test Reason : Blood Pressure : / mmHG Vent. Rate : 083 BPM Atrial Rate : 083 BPM P-R Int : 152 ms QRS Dur : 098 ms QT Int : 426 ms P-R-T Axes : 063 -04 092 degrees QTc Int : 500 ms Sinus rhythm with frequent Premature ventricular complexes in a pattern of bigeminy Abnormal ECG When compared with ECG of 29-SEP-2020 17:46, Premature ventricular complexes are now Present Incomplete right bundle branch block is no longer Present Confirmed by Johnson Castañeda ([id number]) on 10/10/2020 11:07:29 AM Referred By: REFERRED SELF Confirmed By:Mt Castañeda
--- NOTE | 2020-10-10 11:36 | Hospitalist Progress Note ---
Date of Service October 10, 2020 Assessment & Plan (1) Ambulatory dysfunction: Sheri Landeros is a 64 y/o with past medical hx of chronic hypoxic failure on 6L O2 NC at home, COPD requiring recent intubation, sigmoid stricture of colon recent transfer from here [place] [facility], morbid obesity, HTN, CAD, ROZ, GERD, chronic back pain, who presented to [facility] ED for CC of Weakness. Ambulatory dysfunction: - She was discharged from [facility] on 10/09. [facility] [place] reviewed and they recommended inpatient PT but patient refused and wanted to go home with her son with PT/OT. After driving home from hospital, she was unable to get out of car to get into house today from weakness to ambulate and was brought to ED by family - PT/OT ordered - patient was not formally accepted by rehab facility as she refused referral and authorization was not attempted - Will need Case management help with rehab services once evaluated by rehab, otherwise will continue routine home meds. Chronic respiratory failure: - continue with home O2 requirement of 6L NC Sigmoid colon stricture: - Recently required transfer to [facility] [place] here on 10/07-10/09. Discharged today. Dx: with overall colonic dysmotility. - Symptoms resolved and did not require surgical intervention. - continue to monitor GERD: - continue home PPI Pantoprazole Obstructive Sleep Apnea: - BIPAP for HS and naps - 18/03 Hypokalemia: - this AM BMP demonstrated K of 2.7; sample from admission was hemolyzed - ordered 40meq of KCl IV, and 40meq of KCl PO (2) Weakness: (3) Chronic respiratory failure: (4) Stricture of sigmoid colon: (5) GERD (gastroesophageal reflux disease): (6) DVT prophylaxis: (7) ROZ (obstructive sleep apnea): (8) CAD (coronary artery disease): (9) Hyperkalemia: Admission and Anticipated Discharge Date Admission Date: October 09, 2020 Supervising Physician Co-Signing Physician Notes I personally examined the patient and verified all jane points of history and exam, discussed case, and agree with decision making with Dr Angelo. deconditioned. weak. discharged from [facility] did not go to rehab and then once here in [place] realized she was too weak to be home. vitals noted nad heent nc at mmm breathing unlabored no accessory muscles good effort skin no rashes no pallor or icterus neuro no focal deficits deconditioning - needs rehab. hypokalemia - replete otherwise as above Subjective Patient continues to have weakness, and feelings of a hard time moving or lifting herself off. Recognizes that it was a mistake to leave the hospital. Review of Systems Review of Systems: All systems reviewed & are unremarkable except as noted in Subjective Physical Exam Constitutional: + morbidly obese; no acute distress Eyes: PERRL, conjunctivae normal, anicteric sclerae Respiratory: normal respiratory effort; no respiratory distress, no cough and not tachypneic Auscultation: no wheezes Cardiovascular: Rate/Rhythm: regular rate Extremities: + pedal edema (1+ pitting distal LE); no calf tenderness Gastrointestinal (Abdomen): Percussion/Palpation: abdomen soft; abdomen non tender, no guarding and abdomen not rigid Neurologic: moves all extremities; no focal motor deficits Psychiatric: Orientation: oriented to person and oriented to place Results & Data Results & Data ([facility]) Vital Signs (Past 12 Hours) Vital Signs Temp Pulse Resp BP Pulse Ox 10/10/20 11:06 81 18 98 10/10/20 07:17 92 H 19 89 L 10/10/20 07:10 36.5 C 105 H 20 135/73 94 Laboratory Results 10/10/20 10/09/20 10/09/20 Range/Units 07:31 20:14 20:14 WBC (4.8-10.8) K/uL RBC (4.2-5.4) M/uL Hgb (12.0-16.0) g/dL Hct (37-47) % MCV (80-100) fL MCH (25-34) pg MCHC (32-36) g/dL RDW Std Deviation (36.4-46.3) fL RDW Coeff of Ana (11.5-14.5) % Plt Count (130-400) K/uL MPV (7.4-10.4) fL Immature Gran % (Auto) % Neut % (Auto) % Lymph % (Auto) % Waldo % (Auto) % Eos % (Auto) % Baso % (Auto) % Neut # (Auto) (1.4-6.5) K/uL Lymph # (Auto) (1.2-3.4) K/uL Waldo # (Auto) (0.11-0.59) K/uL Eos # (Auto) (0-0.5) K/uL Baso # (Auto) (0-0.2) K/uL Immature Gran # (Auto) (0.00-0.02) K/uL Sodium 147 H (136-145) mmol/L Potassium 2.7 L (3.5-5.1) mmol/L Chloride 111 H (98-107) mmol/L Carbon Dioxide 32 (21-32) mmol/L Anion Gap 4.0 (3-11) BUN 26 H (7-18) mg/dl Creatinine 1.15 (0.6-1.2) mg/dl Est Cr Clr Drug Dosing 54.8 ml/min Est GFR ( Amer) 57.8 Est GFR (Non-Af Amer) 49.9 BUN/Creatinine Ratio 22.4 H (10-20) Glucose 135 H (70-99) mg/dl Calcium 9.4 (8.5-10.1) mg/dl Phosphorus 2.7 (2.5-4.9) mg/dl Magnesium 2.1 (1.8-2.4) mg/dl Total Bilirubin (0.2-1) mg/dl AST (15-37) U/L ALT (12-78) U/L Alkaline Phosphatase (45-117) U/L Troponin I (0-0.045) ng/ml Total Protein (6.4-8.2) gm/dl Albumin (3.4-5.0) gm/dl Globulin (2.5-4.0) gm/dl Albumin/Globulin Ratio (0.9-2) TSH (0.300-4.500) uIu/ml Free T4 (0.8-1.6) ng/dl COVID-19 Eval Order Covid19 IDNow [facility] SARS-CoV-2, RNA, NAAT NEGATIVE (NEGATIVE) 10/09/20 10/09/20 Range/Units 19:25 19:25 WBC 8.58 (4.8-10.8) K/uL RBC 4.49 (4.2-5.4) M/uL Hgb 12.0 (12.0-16.0) g/dL Hct 41.1 (37-47) % MCV 91.5 (80-100) fL MCH 26.7 (25-34) pg MCHC 29.2 L (32-36) g/dL RDW Std Deviation 50.0 H (36.4-46.3) fL RDW Coeff of Ana 15.0 H (11.5-14.5) % Plt Count 131 (130-400) K/uL MPV 11.8 H (7.4-10.4) fL Immature Gran % (Auto) 0.8 % Neut % (Auto) 75.9 % Lymph % (Auto) 12.2 % Waldo % (Auto) 9.3 % Eos % (Auto) 1.7 % Baso % (Auto) 0.1 % Neut # (Auto) 6.50 (1.4-6.5) K/uL Lymph # (Auto) 1.05 L (1.2-3.4) K/uL Waldo # (Auto) 0.80 H (0.11-0.59) K/uL Eos # (Auto) 0.15 (0-0.5) K/uL Baso # (Auto) 0.01 (0-0.2) K/uL Immature Gran # (Auto) 0.07 H (0.00-0.02) K/uL Sodium 145 (136-145) mmol/L Potassium (3.5-5.1) mmol/L Chloride 109 H (98-107) mmol/L Carbon Dioxide 32 (21-32) mmol/L Anion Gap 4.0 (3-11) BUN 27 H (7-18) mg/dl Creatinine 1.19 (0.6-1.2) mg/dl Est Cr Clr Drug Dosing 51.9 ml/min Est GFR ( Amer) 55.5 Est GFR (Non-Af Amer) 47.9 BUN/Creatinine Ratio 22.7 H (10-20) Glucose 121 H (70-99) mg/dl Calcium 9.7 (8.5-10.1) mg/dl Phosphorus (2.5-4.9) mg/dl Magnesium (1.8-2.4) mg/dl Total Bilirubin 0.4 (0.2-1) mg/dl AST (15-37) U/L ALT 12 (12-78) U/L Alkaline Phosphatase 79 (45-117) U/L Troponin I < 0.015 (0-0.045) ng/ml Total Protein 6.3 L (6.4-8.2) gm/dl Albumin 2.7 L (3.4-5.0) gm/dl Globulin 3.6 (2.5-4.0) gm/dl Albumin/Globulin Ratio 0.8 L (0.9-2) TSH 4.610 H (0.300-4.500) uIu/ml Free T4 0.87 (0.8-1.6) ng/dl COVID-19 Eval Order SARS-CoV-2, RNA, NAAT (NEGATIVE) Medications Administered Current Inpatient Medications Acetaminophen (Acetaminophen 325 Mg Tab) 650 mg PO Q4H PRN PRN Reason: Pain or Fever Stop: 11/08/20 22:40 Amlodipine Besylate (Amlodipine Besylate 5 Mg Tab) 5 mg PO QAM [facility] Stop: 11/09/20 08:59 Last Admin: 10/10/20 09:00 Dose: 5 mg Documented by: Aspirin (Aspirin 81 Mg Ectab) 81 mg PO DAILY YAN Stop: 11/09/20 08:59 Last Admin: 10/10/20 09:00 Dose: 81 mg Documented by: Budesonide (Budesonide 0.5 Mg/2 Ml Vial (Pulmicort)) 0.5 mg INH BIDR [facility] Stop: 11/09/20 06:59 Last Admin: 10/10/20 07:16 Dose: 0.5 mg Documented by: Docusate Sodium (Docusate Sodium 100 Mg Cap) 100 mg PO BID YAN Stop: 11/09/20 08:59 Last Admin: 10/10/20 09:01 Dose: 100 mg Documented by: Furosemide (Furosemide 40 Mg Tab) 40 mg PO DAILY YAN Stop: 11/09/20 08:59 Last Admin: 10/10/20 09:01 Dose: 40 mg Documented by: Heparin Sodium (Porcine) (Heparin Sod 5,000 Unit/0.5 Ml Vial) 7,500 units SQ Q8 YAN Stop: 11/08/20 22:40 Last Admin: 10/10/20 14:17 Dose: Not Given Documented by: Ipratropium [place] (Ipratropium [place] Neb Soln 0.02% 2.5 Ml Vial) 0.5 mg INH QIDR YAN Stop: 11/08/20 22:40 Last Admin: 10/10/20 11:06 Dose: 0.5 mg Documented by: Loratadine (Loratadine 10 Mg Tab) 10 mg PO DAILY YAN Stop: 11/09/20 08:59 Last Admin: 10/10/20 09:00 Dose: 10 mg Documented by: Ondansetron HCl (Ondansetron Inj 2 Mg/Ml 2 Ml Vial) 4 mg IV Q6H PRN PRN Reason: Nausea Stop: 11/08/20 22:40 Pantoprazole Sodium (Pantoprazole 40 Mg Tab) 40 mg PO DAILY YAN Stop: 11/09/20 08:59 Last Admin: 10/10/20 09:01 Dose: 40 mg Documented by: Polyethylene Glycol (Polyethylene (Miralax) 17 Gm Pack) 17 gm PO DAILY PRN PRN Reason: Constipation Stop: 11/08/20 22:40 Pravastatin Sodium (Pravastatin Sod 40 Mg Tab) 80 mg PO DAILY YAN Stop: 11/09/20 08:59 Last Admin: 10/10/20 09:01 Dose: 80 mg Documented by: Sennosides (Senna 8.6 Mg Tab) 8.6 mg PO DAILY YAN Stop: 11/09/20 08:59 Last Admin: 10/10/20 09:01 Dose: 8.6 mg Documented by: Tramadol HCl (Tramadol Hcl 50 Mg Tablet) 50 mg PO TID PRN PRN Reason: Pain Stop: 11/08/20 22:40 Umeclidinium/Vilanterol (Umeclidinium/Vilanterol 62.5/25mcg 7 Puffs/Inhaler) 1 puffs INH DAILY YAN Stop: 11/09/20 08:59 Last Admin: 10/10/20 09:02 Dose: 1 puffs Documented by: Resident Activity Tracking Resident Involvement: Resident Care Provided Care Provided: Adult Hospital Medicine (1) Chronic respiratory failure Respiratory failure complication: unspecified whether with hypoxia or hypercapnia Qualified Code(s): J96.10 - Chronic respiratory failure, unspecified whether with hypoxia or hypercapnia
[2020-10-10] MEDS: POTASSIUM CHLORIDE / WTR 10 MEQ/100 ML PLCT IV SCH ×4 (11:38→15:06)
[2020-10-10] MEDS: traMADol HCL 50 MG TABLET PO PRN (17:44)
--- NOTE | 2020-10-10 19:08 | Billing Data ---
Date of Service October 10, 2020 Coding Level of Care Code 17076 Subseq Obs Care Lvl 2
--- NOTE | 2020-10-10 19:53 | Billing Data ---
Date of Service October 10, 2020 Coding Level of Care Code 31026 OBS Care - Level 3
[2020-10-11] MEDS: HEPARIN SOD 5,000 UNIT/0.5 ML VIAL SQ SCH ×3 (06:22→20:52)
[2020-10-11] MEDS: IPRATROPIUM BROMIDE NEB SOLN 0.02% 2.5 ML VIAL INH SCH ×4 (07:20→19:11)
[2020-10-11] MEDS: BUDESONIDE 0.5 MG/2 ML VIAL (PULMICORT) INH SCH ×2 (07:20→19:11)
[2020-10-11 07:36] LABS: Basophils # (auto) 0.03 K/uL (0-0.2); Basophils % (auto) 0.5 %; Eosinophils # (auto) 0.14 K/uL (0-0.5); Eosinophils % (auto) 2.4 %; Hematocrit (blood only) 32.3 % (37-47); Hemoglobin 9.7 g/dL (12.0-16.0); Immature Granulocytes # (auto) 0.12 K/uL (0.00-0.02); Lymphocytes # (auto) 1.68 K/uL (1.2-3.4); Lymphocytes % (auto) 28.4 %; Mean Corpuscular Hemoglobin 26.5 pg (25-34); Mean Corpuscular Volume 88.3 fL (80-100); Mean Platelet Volume 11.2 fL (7.4-10.4); Monocytes % (auto) 10.1 %; Neutrophils # (auto) 3.35 K/uL (1.4-6.5); Neutrophils % (auto) 56.6 %; Nucleated RBC # (auto) 0.11 K/uL (0-0); Nucleated RBC % (auto) 1.9 %; Platelet Count 115 K/uL (130-400); RDW Coefficient of Variation 14.9 % (11.5-14.5); RDW Standard Deviation 48.6 fL (36.4-46.3); Red Blood Count 3.66 M/uL (4.2-5.4); White Blood Count 5.92 K/uL (4.8-10.8)
[2020-10-11 07:53] LABS: BUN Creatinine Ratio 25.9 (10-20); Calcium 9.1 mg/dl (8.5-10.1); Creatinine Clr Calc Pharmacy 65.6 ml/min; Est GFR (African American) 71.9; Est GFR (Non-African American) 62.1; Magnesium 2.1 mg/dl (1.8-2.4)
[2020-10-11] MEDS ORDERED: POTASSIUM PHOS 3 MMOL/1 ML INFUSION IV STA (08:13)
[2020-10-11] MEDS ORDERED: POTASSIUM PHOSPHATE 15 MMOL in SODIUM CHLORIDE 0.9% 250 ML IV ONE (08:15)
[2020-10-11] MEDS: ASPIRIN 81 MG ECTAB PO SCH (09:26)
[2020-10-11] MEDS: LORATADINE 10 MG TAB PO SCH (09:26)
[2020-10-11] MEDS: NYSTATIN SUSP 500,000 U/5 ML UDC PO SCH ×3 (09:27→20:44)
[2020-10-11] MEDS: FUROSEMIDE 40 MG TAB PO SCH (09:27)
[2020-10-11] MEDS: PRAVASTATIN SOD 40 MG TAB PO SCH (09:28)
[2020-10-11] MEDS: amLODIPine BESYLATE 5 MG TAB PO SCH (09:28)
[2020-10-11] MEDS: PANTOprazole 40 MG TAB PO SCH (09:29)
[2020-10-11] MEDS: SENNA 8.6 MG TAB PO SCH (09:30)
[2020-10-11] MEDS: DOCUSATE SODIUM 100 MG CAP PO SCH ×2 (09:30→20:45)
--- NOTE | 2020-10-11 13:28 | Hospitalist Progress Note ---
Date of Service October 11, 2020 Assessment & Plan (1) Ambulatory dysfunction: Sheri Landeros is a 64 y/o with past medical hx of chronic hypoxic failure on 6L O2 NC at home, COPD requiring recent intubation, sigmoid stricture of colon recent transfer from here to [facility] [place], morbid obesity, HTN, CAD, ROZ, GERD, chronic back pain, who presented to [facility] ED for CC of Weakness. Ambulatory dysfunction: - She was discharged from [facility] [place] on 10/09. [facility] records reviewed and they recommended inpatient PT but patient refused and wanted to go home with her son with PT/OT. After driving home from hospital, she was unable to get out of car to get into house today from weakness to ambulate and was brought to ED by family - PT/OT ordered - patient was not formally accepted by rehab facility as she refused referral and authorization was not attempted - discussed with patient that her hesitance towards working with rehab because she feels weak further leads to her being weaker, and the only way to even remotely start to get improvement is going to be through - Will need Case management help with rehab services once evaluated by rehab, otherwise will continue routine home meds. Chronic respiratory failure: - continue with home O2 requirement of 6L NC Sigmoid colon stricture: - Recently required transfer to [facility] [place] from here on 10/07-10/09. Discharged today. Dx: with overall colonic dysmotility. - Symptoms resolved and did not require surgical intervention. - continue to monitor GERD: - continue home PPI Pantoprazole Obstructive Sleep Apnea: - BIPAP for HS and naps - 18/03 Hypokalemia: - this AM BMP demonstrated K of 2.7; sample from admission was hemolyzed - ordered 40meq of KCl IV, and 40meq of KCl PO (2) Weakness: (3) Chronic respiratory failure: (4) Stricture of sigmoid colon: (5) GERD (gastroesophageal reflux disease): (6) ROZ (obstructive sleep apnea): (7) CAD (coronary artery disease): (8) Hyperkalemia: Admission and Anticipated Discharge Date Admission Date: October 11, 2020 Supervising Physician Co-Signing Physician Notes I personally examined the patient and verified all jane points of history and exam, discussed case, and agree with decision making with Dr Angelo. trying to have BM. waiting on rehab vitals noted nad heent nc at mmm breathing unlabored no accessory muscles good effort skin no rashes no pallor or icterus neuro no focal deficits deconditioning - needs rehab. case management assistance appreciated hypokalemia - repleted otherwise as above Subjective Patient had some pain this morning following being rolled onto her side. States that this was just a surprise to her since she just does not move all that much and made her feel painful, but once she stopped being rolled the pain immediately went away. Feels frustrated that her body just does not seem to improve, as she feels too weak to move and does not know when she will be able too. Review of Systems Review of Systems: All systems reviewed & are unremarkable except as noted in Subjective Physical Exam Constitutional: + morbidly obese; no acute distress Eyes: PERRL, conjunctivae normal, anicteric sclerae Respiratory: normal respiratory effort; no respiratory distress, no cough and not tachypneic Auscultation: no wheezes Cardiovascular: Rate/Rhythm: regular rate Extremities: + pedal edema (1+ pitting distal LE); no calf tenderness Gastrointestinal (Abdomen): Percussion/Palpation: abdomen soft; abdomen nontender, no guarding and abdomen not rigid Neurologic: moves all extremities; no focal motor deficits Psychiatric: Orientation: oriented to person and oriented to place Results & Data Results & Data ([facility]) Vital Signs (Past 12 Hours) Vital Signs Temp Pulse Pulse Resp BP Pulse Ox 10/11/20 11:11 91 H 20 98 10/11/20 09:17 93 H 143/72 H 10/11/20 07:39 36.6 C 99 H 18 134/62 95 10/11/20 07:20 90 20 98 Laboratory Results 10/11/20 10/11/20 Range/Units 07:10 07:10 WBC 5.92 (4.8-10.8) K/uL RBC 3.66 L (4.2-5.4) M/uL Hgb 9.7 L (12.0-16.0) g/dL Hct 32.3 L (37-47) % MCV 88.3 (80-100) fL MCH 26.5 (25-34) pg MCHC 30.0 L (32-36) g/dL RDW Std Deviation 48.6 H (36.4-46.3) fL RDW Coeff of Ana 14.9 H (11.5-14.5) % Plt Count 115 L (130-400) K/uL MPV 11.2 H (7.4-10.4) fL Immature Gran % (Auto) 2.0 % Neut % (Auto) 56.6 % Lymph % (Auto) 28.4 % [place] % (Auto) 10.1 % Eos % (Auto) 2.4 % Baso % (Auto) 0.5 % Neut # (Auto) 3.35 (1.4-6.5) K/uL Lymph # (Auto) 1.68 (1.2-3.4) K/uL [place] # (Auto) 0.60 H (0.11-0.59) K/uL Eos # (Auto) 0.14 (0-0.5) K/uL Baso # (Auto) 0.03 (0-0.2) K/uL Immature Gran # (Auto) 0.12 H (0.00-0.02) K/uL Absolute Nucleated RBC 0.11 H (0-0) K/uL Nucleated RBC % (auto) 1.9 % Sodium 145 (136-145) mmol/L Potassium 4.0 D (3.5-5.1) mmol/L Chloride 110 H (98-107) mmol/L Carbon Dioxide 34 H (21-32) mmol/L Anion Gap 1.0 L (3-11) BUN 25 H (7-18) mg/dl Creatinine 0.96 (0.6-1.2) mg/dl Est Cr Clr Drug Dosing 65.6 ml/min Est GFR ( Amer) 71.9 Est GFR (Non-Af Amer) 62.1 BUN/Creatinine Ratio 25.9 H (10-20) Glucose 86 (70-99) mg/dl Calcium 9.1 (8.5-10.1) mg/dl Phosphorus 2.0 L (2.5-4.9) mg/dl Magnesium 2.1 (1.8-2.4) mg/dl Medications Administered Current Inpatient Medications Acetaminophen (Acetaminophen 325 Mg Tab) 650 mg PO Q4H PRN PRN Reason: Pain or Fever Stop: 11/08/20 22:40 Amlodipine Besylate (Amlodipine Besylate 5 Mg Tab) [facility] [place] Stop[facility] 11/09/20 08:59 Last Admin: 10/11/20 09:28 Dose: 5 mg Documented by: Aspirin (Aspirin 81 Mg Ectab) 81 mg PO DAILY YAN Stop: 11/09/20 08:59 Last Admin: 10/11/20 09:26 Dose: 81 mg Documented by: Budesonide (Budesonide 0.5 Mg/2 Ml Vial (Pulmicort)) 0.5 mg INH BIDR YAN Stop: 11/09/20 06:59 Last Admin: 10/11/20 07:20 Dose: 0.5 mg Documented by: Docusate Sodium (Docusate Sodium 100 Mg Cap) 100 mg PO BID YAN Stop: 11/09/20 08:59 Last Admin: 10/11/20 09:30 Dose: 100 mg Documented by: Furosemide (Furosemide 40 Mg Tab) 40 mg PO DAILY YAN Stop: 11/09/20 08:59 Last Admin: 10/11/20 09:27 Dose: 40 mg Documented by: Heparin Sodium (Porcine) (Heparin Sod 5,000 Unit/0.5 Ml Vial) 7,500 units SQ Q8 YAN Stop: 11/08/20 22:40 Last Admin: 10/11/20 14:34 Dose: 7,500 units Documented by: Ipratropium Celestine (Ipratropium Celestine Neb Soln 0.02% 2.5 Ml Vial) 0.5 mg INH QIDR YNA Stop: 11/08/20 22:40 Last Admin: 10/11/20 15:13 Dose: 0.5 mg Documented by: Loratadine (Loratadine 10 Mg Tab) 10 mg PO DAILY YAN Stop: 11/09/20 08:59 Last Admin: 10/11/20 09:26 Dose: 10 mg Documented by: Nystatin (Nystatin Susp 500,000 U/5 Ml [facility] [place]) 10 ml PO TID YAN Stop: 10/13/20 08:59 Last Admin: 10/11/20 14:32 Dose: 10 ml Documented by: Ondansetron HCl (Ondansetron Inj 2 Mg/Ml 2 Ml Vial) 4 mg IV Q6H PRN PRN Reason: Nausea Stop: 11/08/20 22:40 Pantoprazole Sodium (Pantoprazole 40 Mg Tab) 40 mg PO DAILY YAN Stop: 11/09/20 08:59 Last Admin: 10/11/20 09:29 Dose: 40 mg Documented by: Polyethylene Glycol (Polyethylene (Miralax) 17 Gm Pack) 17 gm PO DAILY PRN PRN Reason: Constipation Stop: 11/08/20 22:40 Pravastatin Sodium (Pravastatin Sod 40 Mg Tab) 80 mg PO DAILY YAN Stop: 11/09/20 08:59 Last Admin: 10/11/20 09:28 Dose: 80 mg Documented by: Sennosides (Senna 8.6 Mg Tab) 8.6 mg PO DAILY YAN Stop: 11/09/20 08:59 Last Admin: 10/11/20 09:30 Dose: 8.6 mg Documented by: Tramadol HCl (Tramadol Hcl 50 Mg Tablet) 50 mg PO TID PRN PRN Reason: Pain Stop: 11/08/20 22:40 Last Admin: 10/10/20 17:44 Dose: 50 mg Documented by: Umeclidinium/Vilanterol (Umeclidinium/Vilanterol 62.5/25mcg 7 Puffs/Inhaler) 1 puffs INH DAILY [facility] Stop: 11/09/20 08:59 Last Admin: 10/10/20 09:02 Dose: 1 puffs Documented by: Resident Activity Tracking Resident Involvement: Resident Care Provided Care Provided: Adult Hospital Medicine (1) Chronic respiratory failure Respiratory failure complication: unspecified whether with hypoxia or hypercapnia Qualified Code(s): J96.10 - Chronic respiratory failure, unspecified whether with hypoxia or hypercapnia
[2020-10-11] MEDS: traMADol HCL 50 MG TABLET PO PRN (17:54)
--- NOTE | 2020-10-11 18:48 | Billing Data ---
Date of Service October 11, 2020 Coding Level of Care Code 12469 Subseq Hosp Care Lvl 2
[2020-10-11] MEDS: POLYETHYLENE (MIRALAX) 17 GM PACK PO SCH (20:44)
[2020-10-12] MEDS: traMADol HCL 50 MG TABLET PO PRN ×2 (03:12→11:25)
[2020-10-12] MEDS: HEPARIN SOD 5,000 UNIT/0.5 ML VIAL SQ SCH (06:11)
[2020-10-12 06:40] LABS: Eosinophils % (auto) 1.8 %; Hematocrit (blood only) 31.2 % (37-47); Hemoglobin 9.2 g/dL (12.0-16.0); Immature Granulocytes # (auto) 0.05 K/uL (0.00-0.02); Immature Granulocytes % (auto) 0.9 %; Lymphocytes # (auto) 1.37 K/uL (1.2-3.4); Lymphocytes % (auto) 24.7 %; Mean Corpuscular Hemoglobin 26.7 pg (25-34); Mean Corpuscular Hgb Conc 29.5 g/dL (32-36); Mean Corpuscular Volume 90.4 fL (80-100); Mean Platelet Volume 10.1 fL (7.4-10.4); Monocytes # (auto) 0.61 K/uL (0.11-0.59); Neutrophils # (auto) 3.41 K/uL (1.4-6.5); Neutrophils % (auto) 61.6 %; Platelet Count 108 K/uL (130-400); RDW Coefficient of Variation 14.7 % (11.5-14.5); RDW Standard Deviation 48.4 fL (36.4-46.3); Red Blood Count 3.45 M/uL (4.2-5.4); White Blood Count 5.54 K/uL (4.8-10.8)
[2020-10-12 07:12] LABS: BUN Creatinine Ratio 24.9 (10-20); Calcium 9.2 mg/dl (8.5-10.1); Creatinine Clr Calc Pharmacy 69.2 ml/min; Est GFR (African American) 76.7; Est GFR (Non-African American) 66.2; Potassium 3.7 mmol/L (3.5-5.1)
[2020-10-12] MEDS: BUDESONIDE 0.5 MG/2 ML VIAL (PULMICORT) INH SCH (07:14)
[2020-10-12] MEDS: IPRATROPIUM BROMIDE NEB SOLN 0.02% 2.5 ML VIAL INH SCH ×2 (07:14→10:57)
[2020-10-12] MEDS: POLYETHYLENE (MIRALAX) 17 GM PACK PO SCH (08:29)
[2020-10-12] MEDS: NYSTATIN SUSP 500,000 U/5 ML UDC PO SCH (08:30)
[2020-10-12] MEDS: amLODIPine BESYLATE 5 MG TAB PO SCH (08:31)
[2020-10-12] MEDS: DOCUSATE SODIUM 100 MG CAP PO SCH (08:31)
[2020-10-12] MEDS: FUROSEMIDE 40 MG TAB PO SCH (08:31)
[2020-10-12] MEDS: PANTOprazole 40 MG TAB PO SCH (08:31)
[2020-10-12] MEDS: SENNA 8.6 MG TAB PO SCH (08:31)
[2020-10-12] MEDS: PRAVASTATIN SOD 40 MG TAB PO SCH (08:32)
[2020-10-12] MEDS: LORATADINE 10 MG TAB PO SCH (08:32)
[2020-10-12] MEDS: UMECLIDINIUM/VILANTEROL 62.5/25MCG 7 PUFFS/INHALER INH SCH (08:32)
[2020-10-12] MEDS: ASPIRIN 81 MG ECTAB PO SCH (08:32)
--- NOTE | 2020-10-12 11:04 | Hospitalist Progress Note ---
Date of Service October 12, 2020 Assessment & Plan (1) Ambulatory dysfunction: Sheri Landeros is a 64 y/o with past medical hx of chronic hypoxic failure on 6L O2 NC at home, COPD requiring recent intubation, sigmoid stricture of colon recent transfer from here to [facility], morbid obesity, HTN, CAD, ROZ, GERD, chronic back pain, who presented to [facility] ED for CC of Weakness. Ambulatory dysfunction: - She was discharged from [facility] on 10/09. [facility] records reviewed and they recommended inpatient PT but patient refused and wanted to go home with her son with PT/OT. After driving home from hospital, she was unable to get out of car to get into house today from weakness to ambulate and was brought to ED by family - PT/OT ordered - patient was not formally accepted by rehab facility as she refused referral and authorization was not attempted - discussed with patient that her hesitance towards working with rehab because she feels weak further leads to her being weaker, and the only way to even remotely start to get improvement is going to be through - Will need Case management help with rehab services once evaluated by rehab, otherwise will continue routine home meds. Chronic respiratory failure: - continue with home O2 requirement of 6L NC Sigmoid colon stricture: - Recently required transfer to [facility] from here on 10/07-10/09. Discharged today. Dx: with overall colonic dysmotility. - Symptoms resolved and did not require surgical intervention. - continue to monitor GERD: - continue home PPI Pantoprazole Obstructive Sleep Apnea: - BIPAP for HS and naps - 18/03 Hypokalemia: - this AM BMP demonstrated K of 2.7; sample from admission was hemolyzed - ordered 40meq of KCl IV, and 40meq of KCl PO (2) Weakness: as above (3) Chronic respiratory failure: continue with home O2 requirement of 6L NC (4) Stricture of sigmoid colon: Recently required transfer to [facility] from here on 10/07-10/09. Discharged today. Dx: with overall colonic dysmotility. Symptoms resolved and did not require surgical intervention. (5) GERD (gastroesophageal reflux disease): continue home PPI Pantoprazole (6) ROZ (obstructive sleep apnea): BIPAP for HS and naps Settings 17.6 (7) CAD (coronary artery disease): records reviewed from [facility]. Echo on 1/7: EF 65-70% (8) Hyperkalemia: Original value in ED with elevated K which was hemolyzed sample Repeat pending, no signs of ARF Admission and Anticipated Discharge Date Admission Date: October 11, 2020 Results & Data Results & Data ([facility]) Vital Signs (Past 12 Hours) Vital Signs Temp Pulse Pulse Resp BP Pulse Ox 10/12/20 10:57 88 22 95 10/12/20 07:14 86 20 95 10/12/20 07:06 36.4 C L 95 H 18 137/64 92 (1) Chronic respiratory failure Respiratory failure complication: unspecified whether with hypoxia or hyperca pnia Qualified Code(s): J96.10 - Chronic respiratory failure, unspecified whether with hypoxia or hypercapnia
--- NOTE | 2020-10-12 13:06 | Discharge Summary ---
Date of Service October 12, 2020 Admission HPI Per Admitting Provider Caveat: History Limited by - poor cooperation. Sheri Landeros is a 64 y/o with past medical hx of chronic hypoxic failure on 6L O2 NC at home, COPD requiring recent intubation, sigmoid stricture of colon recent transfer from here to [facility], morbid obesity, HTN, CAD, ROZ, GERD, chronic back pain, who presented to [facility] ED for CC of Weakness. She was discharged from [facility] today. She recently had prolonged hospitalization (09/29-10/07) here at [facility] treated for pneumonia. She also had ICU stay with intubation and mechanical ventiliation for acute on chronic resp failure. She later developed an ileus with increased abdominal distention with NG tube placement and had a strictured sigmoid colon. She was deemed too risky to perform procedure here because of poor chronic respiratory status. Her symptoms resolved at [facility] without need for intervention. She was discharged at [facility] today after two day stay. [facility] records reviewed and they recommended inpatient PT but patient refused and wanted to go home with her son with PT/OT. After driving home from hospital, she was unable to get out of car to get into house today from weakness to ambulate. She was then brought here to [facility] ED and requires rehab placement. There were no other acute complaints noted. Patient is not interested in answering questions and prefers to sleep. Nursing notes she had become tired after agitation with phlebotomy as she is a difficulty blood draw/IV access and also became agitated with COVID swab which she has had many recently. She notes she wears positive pressure ventilation for ROZ, which she was sleeping with only NC when I came into room for H+P. Admission Exam Per Admitting Provider Constitutional: + morbidly obese; no acute distress snoring, arouses to loud voice, not interested in talking and goes back to sleep. Answers questions appropriately. Then goes back to sleep and snores. Eyes: PERRL, conjunctivae normal, anicteric sclerae ENMT: Nose: no external nose abnormality Mouth: no lip abnormality Neck: trachea midline, no thyromegaly Respiratory: normal respiratory effort; no respiratory distress, no cough and not tachypneic Auscultation: no wheezes Cardiovascular: Rate/Rhythm: regular rate Extremities: + pedal edema (1+ pitting distal LE); no calf tenderness Gastrointestinal (Abdomen): Percussion/Palpation: abdomen soft; abdomen nontender, no guarding and abdomen not rigid hyperactive loud bowel sounds Musculoskeletal: Head/Neck/Chest: normocephalic and head atraumatic unable to participate in exam, poor cooperation, moves all extremities Skin: diffuse ecchymosis on forearms bilaterally in various stages of healing Neurologic: moves all extremities; no focal motor deficits unable to partic ipate in exam, poor cooperation, moves all extremities Psychiatric: Orientation: oriented to person and oriented to place not oriented to why she is here in hospital. Principal Diagnosis ambulatory dysfunction Discharge Exam Constitutional: obese, in no apparent distress, sitting comfortably in bed. Eyes: EOMI, pupils equal and reactive bilaterally, no scleral icterus Cardiac: RRR, no murmurs, gallops or rubs. Normal S1, S2 Pulm: CTA BL, no wheezes, rhonchi, crackles or rubs, moving air well throughout both lungs Abd: soft, nontender, distended, normal bowel sounds, no rebound or guarding Extremities: no pitting edema Neuro: moving all 4 limbs however difficulty moving body around bed due to weakness and habitus Discharge Data Allergies Allergy/AdvReac Type Severity Reaction Status Date / Time codeine AdvReac Mild SHAKING Verified 10/09/20 21:54 oxycodone AdvReac Unknown rash/shakes Verified 10/09/20 21:54 Consultations 10/09/20 20:09 ED Decision to Admit Stat Hospital Course (1) Ambulatory dysfunction: Sheri Landeros is a 64 y/o with past medical hx of chronic hypoxic failure on 6L O2 NC at home, COPD requiring recent intubation, sigmoid stricture of colon recently transfered from [facility] to [facility], morbid obesity, HTN, CAD, ROZ, GERD, chronic back pain, who re-presented to [facility] ED for CC of Weakness. Ambulatory dysfunction: Discharged from [facility] to [facility] on 10/09 for intervention on colonic stricture. At [facility] patient refused inpatient PT as was recommended, and insisted on going home with PT/OT. No surgical interventions performed. En route home from [facility], patient was unable to get out of her vehicle into the house, and came back to [facility] ED. Multiple conversations had regarding need for PT to get stronger despite how weak she currently feels. Finally amenable to trying PT and discharged to [facility]. Sigmoid colon stricture: Recently required transfer to [facility] from [facility] on 10/07-10/09. Diagnosed with overall colonic dysmotility. Symptoms resolved and did not require surgical intervention. She was started on miralax, docusate, senna at [facility] for assistance with bowel movements. All other medical conditions managed per home regimen. (2) Weakness: (3) Chronic respiratory failure: (4) Stricture of sigmoid colon: (5) GERD (gastroesophageal reflux disease): (6) ROZ (obstructive sleep apnea): (7) CAD (coronary artery disease): (8) Hyperkalemia: Total Time Total Time Spent Total Time Spent (In Minutes): see attending attestation Discharge Plan Discharge Items Patient Disposition: Transfer Inpatient Rehab Fac Reason For Visit: WEAKNESS, FAILURE TO AMBULATE Discharge Diagnosis: Ambulatory Dysfunction Activity: Resume your previous activity Lifting: Gradually increase as tolerated Exercise/Sports: Gradually increase as tolerated Weightbearing: Full weightbearing Non-emergency contact: Primary Care Provider Call non-emergency contact if: you have any medication questions Follow-up/Referrals: Beatriz Baker DO [Primary Care Provider] - Diet: Heart Healthy Addtl Attending Provider Instructions: (1) Ambulatory dysfunction: Sheri Landeros is a 64 y/o with past medical hx of chronic hypoxic failure on 6L O2 NC at home, COPD requiring recent intubation, sigmoid stricture of colon recent transfer from here to [facility], morbid obesity, HTN, CAD, ROZ, GERD, chronic back pain, who presented to [facility] ED for CC of Weakness. Ambulatory dysfunction: - She was discharged from [facility] on 10/09. [facility] records reviewed and they recommended inpatient PT but patient refused and wanted to go home with her son with PT/OT. After driving home from hospital, she was unable to get out of car to get into house today from weakness to ambulate and was brought to ED by family - PT/OT ordered - patient now onboard with needing to work on regaining strength with rehab in order to feel better and get control of movement Chronic respiratory failure: - continue with home O2 requirement of 6L NC Sigmoid colon stricture: - Recently required transfer to [facility] from here on 10/07-10/09. Dx: with overall colonic dysmotility. - Symptoms resolved and did not require surgical intervention. - miralax, senna, docusate for assistance with bowel movements GERD: - continue home PPI Pantoprazole Obstructive Sleep Apnea: - BIPAP for HS and naps - 17/6 Hypokalemia: - resolved after repletion (2) Weakness: (3) Chronic respiratory failure: (4) Stricture of sigmoid colon: (5) GERD (gastroesophageal reflux disease): (6) ROZ (obstructive sleep apnea): (7) CAD (coronary artery disease): (8) Hyperkalemia: Pending Studies at Discharge: No Stand-Alone Forms: [facility] Skilled Items Patient informed of condition?: Yes DNR: No Discharge Level of Care: Acute rehab Communicable Disease: No Discharge Prognosis: Stable Lines: None Urinary Catheter: No Medications and DC Order Prescriptions: New polyethylene glycol 3350 [Miralax] 17 gram Powder In Packet 17 g PO TID PRN (Reason: constipation) 30 Days RF: 0 amlodipine [Norvasc] 5 mg Tablet 5 mg PO QAM 30 Days Qty: 30 RF: 0 aspirin 81 mg Tablet,Delayed Release (Dr/Ec) 81 mg PO DAILY 30 Days Qty: 30 RF: 0 Continued pravastatin 80 mg tablet 80 mg PO DAILY Qty: 30 RF: 5 pantoprazole 40 mg tablet,delayed release (DR/EC) 40 mg PO DAILY Qty: 90 RF: 1 budesonide 0.5 mg/2 mL suspension for nebulization 0.5 mg inhalation BID Qty: 120 RF: 5 ipratropium bromide 0.02 % solution 2.5 ml INHALATION QID Qty: 187.5 RF: 3 tramadol 50 mg tablet 50 mg PO TID PRN (Reason: Pain) Qty: 30 RF: 0 loratadine [Claritin] 10 mg tablet 10 mg PO DAILY Qty: 30 RF: 5 baclofen 10 mg tablet 10 mg PO BID RF: 0 furosemide 40 mg tablet 40 mg PO DAILY RF: 0 sennosides 8.6 mg tablet 8.6 mg PO DAILY RF: 0 metformin 1,000 mg Tablet 1,000 mg PO BID RF: 0 docusate sodium 100 mg Capsule 100 mg PO BID RF: 0 Bevespi Aerosphere 9-4.8 mcg Hfa Aerosol Inhaler 2 puff INHALATION BID RF: 0 albuterol sulfate [Ventolin HFA] 90 mcg/actuation HFA aerosol inhaler 2 inh INH QID PRN (Reason: Wheezing) RF: 0 Discharge Orders: Discharge Order (Routine); Ordered 10/12/20 Ordered By: Cherelle Kemp Admission Data Admit Date/Time: 10/11/20 10:13 Attending Provider: Edwina Diez Admit Provider: Clint Martinez Primary Care Provider: Beatriz Baker Other Providers: Harmeet Steward ; [facility] ; [facility] ; Trino Zamora ; Cherelle Kemp Other Interventions: Discharge Summary Assessment (RN) Last Done: 10/12/20 12:39 Supervising Physician Co-Signing Physician Notes Resident Physician Supervision Note: I independently interviewed and examined the patient and verified the jane history and physical, reviewed labs and image studies, discussed the case with the resident Dr. Kemp and agree with the findings and care plan. Resident Activity Tracking Resident Involvement: Resident Care Provided Care Provided: Adult Hospital Medicine
== END 2020-10-12 14:11 | DRG 92 ==
LOC: 3W 17:55 → ED 17:55 → SUATTDRO 21:20 → 3W 22:02 → SUATTDRO 10-11 10:13

== ENCOUNTER 2021-10-27 19:31 | Inpatient (IN) ==
--- NOTE | 2021-10-27 20:10 | Emergency Department Note ---
History of Present Illness General Chief complaint: Illness Stated complaint: GENERAL ILLNESS Time Seen by Provider: 10/27/21 19:42 Source: patient Mode of arrival: EMS Limitations: no limitations History of Present Illness Provider complaint: weakness, cough, SOB, fam +COVID Onset (ago): week(s) 3 Associated symptoms: + chest pain, + cough, + loss of appetite, + malaise, + nausea/vomiting, + shortness of breath and + weakness; no fever/chills or no headaches Treatments prior to arrival: none This is a 65-year-old female who presents the emergency department due to multiple worsening symptoms and Covid positive family members. Patient does have a history of COPD and does wear chronic oxygen. She had a telehealth visit with her veterinary technologist October 06 and was started on antibiotics and steroids which she took for 10 days. Patient states she completed that course however has not felt significant improvement. She states she does have a worsening cough productive of a dark green sputum. Patient has not adjusted her titrated up her oxygen level, is still wearing 6 L all the time. Patient does feel increasingly short of breath though, particularly with movement or exertion. Patient's had decreased appetite, in for increased malaise and generalized weakness. She denies fevers or chills. States she has bilateral rib pain, no other central chest pain. Denies abdominal pain or diarrhea. Patient denies leg swelling, rash or sores. Patient states her family members began having symptoms 1 week ago and had positive Covid test as an outpatient. Patient is not vaccinated against Covid, has not been tested yet. Pt seen during a time of high acuity and national emergency pandemic while wearing PPE. Home Medications Medication Instructions Recorded Confirmed Type carvedilol 6.25 mg tablet 6.25 mg PO BID #30 tab 11/06/20 10/27/21 Rx folic acid 400 mcg tablet 400 mcg PO QAM #30 tab 11/06/20 10/27/21 Rx aspirin 81 mg tablet,delayed 81 mg PO DAILY 12/01/20 10/27/21 History release glycopyrrolate 9 mcg-formoterol 2 puff INHALATION BID #10.7 g 06/18/21 10/27/21 Rx 4.8 mcg HFA aerosol inhaler (Bevespi Aerosphere) loratadine 10 mg tablet (Claritin) 10 mg PO DAILY #30 tab 06/27/21 10/27/21 Rx ipratropium bromide 0.02 % 2.5 ml INHALATION QID #187.5 ml 07/26/21 10/27/21 Rx solution for inhalation albuterol sulfate 90 mcg/actuation 2 inh INH QID PRN #8.5 g 08/02/21 10/27/21 Rx aerosol inhaler (Ventolin HFA) budesonide 0.5 mg/2 mL suspension 0.5 mg INHALATION BID #120 ml 08/30/21 10/27/21 Rx for nebulization albuterol sulfate 2.5 mg INHALATION Q4H PRN #300 ml 09/07/21 10/27/21 Rx metformin 1,000 mg tablet 1,000 mg PO BID #180 tab 09/27/21 10/27/21 Rx pantoprazole 40 mg tablet,delayed 40 mg PO DAILY #90 tab 09/27/21 10/27/21 Rx release baclofen 10 mg tablet 10 mg PO TID PRN #90 tab 09/30/21 10/27/21 Rx pravastatin 80 mg tablet 80 mg PO DAILY #90 tab 09/30/21 10/27/21 Rx fluticasone propionate 50 2 spray INTRANASAL DAILY PRN #15.8 10/04/21 10/27/21 Rx mcg/actuation nasal ml spray,suspension (Flonase Allergy Relief) tramadol 50 mg tablet 50 mg PO TID PRN #90 tab 10/04/21 10/27/21 Rx docusate sodium 100 mg capsule 100 mg PO BID #180 cap 10/05/21 10/27/21 Rx miconazole nitrate 2 % topical 1 spray TOPICAL BID PRN 10/27/21 10/27/21 History spray powder polyethylene glycol 3350 17 17 g PO DAILY PRN 10/27/21 10/27/21 History gram/dose oral powder (Miralax) sennosides 8.6 mg tablet 8.6 - 17.2 mg PO HS 10/27/21 10/27/21 History simethicone 80 mg chewable tablet 80 mg PO DIRECTED PRN 10/27/21 10/27/21 History Allergies Allergy/AdvReac Type Severity Reaction Status Date / Time codeine AdvReac Mild SHAKING Verified 10/27/21 21:18 oxycodone AdvReac Unknown rash/shakes Verified 10/27/21 21:18 Past Med/Surg History Medical History Anemia Chronic back pain Chronic renal insufficiency Chronic respiratory failure Chronic venous insufficiency Colonic dysmotility Hypercapnic respiratory failure Hypertension Lymphedema Osteoporosis Pulmonary nodules Vitamin D deficiency Surgical History History of cholecystectomy Hx of umbilical hernia repair Family History Sister Colorectal cancer Breast cancer Denies family history of Ovarian cancer Prostate cancer Myocardial infarction Social History Smoking Status: Never smoker Tobacco Type: Cigarettes Age Started Using Tobacco: 17; Age Quit Using Tobacco: 49; packs per day: 2; Cigarettes Per Day: 2 ppd quit 15 yrs ago; Second Hand Exposure: No; Hx Alcohol Use: No Hx Substance Use: No Preferred Language: Polish Communication Ability: Unable Visual Impairment: Limited Hearing Ability: Normal 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 Beliefs That Will Affect Care: None marital status: Current Living Situation: Family Current Living Situation Comment: Lives with son, was just discharged from [place] current occupational status: retired Feels Safe at Home: Yes Childhood Exposure to Second-Hand Smoke: No caffeine: Yes (coffee x 1 per day Iced tea x 1 glass per day.) during the past year weight has: remained stable Dental Care, Regularly: No Physical Activity Frequency: Does not Exercise Seatbelt Use: never Sunscreen Use: No Assistive Devices: Oxygen - Continuous and Walker Review of Systems A total of 10 systems reviewed and were otherwise negative All systems reviewed & are unremarkable except as noted in HPI & below Physical Exam Vital Signs Vital Signs - 24 hr 10/27/21 19:16 10/27/21 19:38 10/27/21 19:43 Temperature 37.6 C H Temperature Source Oral Pulse Rate 106 H 99 H 103 H Pulse Rhythm Regular Pulse Strength Normal Respiratory Rate 24 22 25 H Respiratory Effort / Characteristics Non-Labored Respiratory Depth Normal Blood Pressure 169/90 H 169/90 H Blood Pressure Mean 116 116 Blood Pressure Position Sitting Pulse Oximetry 99 96 97 Oxygen Delivery Method Nasal Cannula Nasal Cannula Nasal Cannula Oxygen Flow Rate 6 6 6 Sepsis Recent Fever Within 48 Hours Yes Sepsis New/Unexplained Change in Mental Status No Sepsis Action Taken by Nursing Physician Notified 10/27/21 20:00 10/27/21 21:00 10/27/21 22:00 Temperature Temperature Source Pulse Rate 103 H 111 H 92 H Pulse Rhythm Pulse Strength Respiratory Rate 21 24 20 Respiratory Effort / Characteristics Respiratory Depth Blood Pressure Blood Pressure Mean Blood Pressure Position Pulse Oximetry 99 99 98 Oxygen Delivery Method Nasal Cannula Nasal Cannula Nasal Cannula Oxygen Flow Rate 6 6 6 Sepsis Recent Fever Within 48 Hours Sepsis New/Unexplained Change in Mental Status Sepsis Action Taken by Nursing 10/27/21 23:00 Temperature Temperature Source Pulse Rate 85 Pulse Rhythm Pulse Strength Respiratory Rate 24 Respiratory Effort / Characteristics Respiratory Depth Blood Pressure Blood Pressure Mean Blood Pressure Position Pulse Oximetry 100 Oxygen Delivery Method Nasal Cannula Oxygen Flow Rate 6 Sepsis Recent Fever Within 48 Hours Sepsis New/Unexplained Change in Mental Status Sepsis Action Taken by Nursing GENERAL: alert, ill appearing, well nourished, moderate distress, non-toxic EYE EXAM: normal conjunctiva, PERRL and EOM's grossly intact OROPHARYNX: no exudate, no erythema, lips, buccal mucosa, and tongue normal and mucous membranes are moist NECK: supple, no nuchal rigidity, no adenopathy, non-tender LUNGS: Clear to auscultation. Normal chest wall mechanics, no wheezes or rales, bilateral scattered rhonchi noted, coarse cough noted multiple times during the exam, increased work of breathing, mild tachypnea HEART: no murmurs, S1 normal and S2 normal ABDOMEN: abdomen soft, non-tender, normo-active bowel sounds, no masses, no rebound or guarding. BACK: Back is symmetrical on inspection and there is no deformity, no midline tenderness, no CVA tenderness. SKIN: no rashes and no bruising UPPER EXTREMITIES: upper extremities are grossly normal. FROM, nml pulses b/l. LOWER EXTREMITIES: No pitting edema. FROM, nml pulses b/l. NEURO EXAM: Normal sensorium, cranial nerves II-XII grossly intact, normal speech, no gross weakness of arms, no gross weakness of legs. Gross sensation intact. Course Administered Medications Discontinued Medications Albuterol (Albut/Ipratrop 3mg/0.5mg Neb 3 Ml Vial) 3 ml NEB NOW STA; Protocol Stop: 10/27/21 20:55 Last Admin: 10/27/21 21:26 Dose: 3 ml Documented by: [id number] Dexamethasone Sodium Phosphate (DexamethasonePf 10 Mg/Ml Vial) 6 mg IV NOW ONE Stop: 10/27/21 21:09 Last Admin: 10/27/21 21:26 Dose: 6 mg Documented by: [id number] Sodium Chloride (Nss 1000ml) 1,000 mls @ 125 mls/hr IV .Q8H YAN Stop: 11/26/21 20:59 Last Admin: 10/27/21 21:26 Dose: 125 mls/hr Documented by: [id number] Medical Decision Making Differential Diagnosis Differential diagnoses includes but is not limited to pneumonia, bronchitis, COPD/Asthma exacerbation, pneumothorax, pulmonary embolism, congestive heart failure, acute coronary syndrome Medical Records Attestation: I reviewed the patient's medical records. Home Medications Current Medication List: was personally reviewed by me Laboratory Data Attestation: I reviewed the patient's lab results. Result diagrams: 10/27/21 19:50 10/27/21 19:50 Lab Results 10/27/21 10/27/21 10/27/21 Range/Units 19:50 19:50 19:50 WBC 4.04 L (4.8-10.8) K/uL RBC 4.18 L (4.2-5.4) M/uL Hgb 11.8 L (12.0-16.0) g/dL Hct 37.1 (37-47) % MCV 88.8 (80-100) fL MCH 28.2 (25-34) pg MCHC 31.8 L (32-36) g/dL RDW Std Deviation 44.6 (36.4-46.3) fL RDW Coeff of Ana 13.6 (11.5-14.5) % Plt Count 139 (130-400) K/uL MPV 10.0 (7.4-10.4) fL Immature Gran % (Auto) 0.2 % Neut % (Auto) 55.6 % Lymph % (Auto) 31.4 % [place] % (Auto) 11.6 % Eos % (Auto) 1.0 % Baso % (Auto) 0.2 % Neut # (Auto) 2.24 (1.4-6.5) K/uL Lymph # (Auto) 1.27 (1.2-3.4) K/uL [place] # (Auto) 0.47 (0.11-0.59) K/uL Eos # (Auto) 0.04 (0-0.5) K/uL Baso # (Auto) 0.01 (0-0.2) K/uL Immature Gran # (Auto) 0.01 (0.00-0.02) K/uL Sodium 136 (136-145) mmol/L Potassium 5.0 (3.5-5.1) mmol/L Chloride 95 L (98-107) mmol/L Carbon Dioxide 35 H (21-32) mmol/L Anion Gap 6 (3-11) BUN 19 (6-23) mg/dl Creatinine 1.05 (0.6-1.2) mg/dl Est Cr Clr Drug Dosing 48.4 ml/min Est GFR ( Amer) 64.1 ml/min Est GFR (Non-Af Amer) 55.3 ml/min BUN/Creatinine Ratio 18.1 (10-20) Glucose 99 (70-99(Fasting)) mg/dl Calcium 9.3 (8.5-10.1) mg/dl Magnesium 1.7 (1.7-2.4) mg/dl Total Bilirubin 0.3 (0.2-1.0) mg/dl AST 18 (13-39) U/L ALT 12 (7-52) U/L Alkaline Phosphatase 71 (34-104) U/L Troponin I < 0.03 (0-0.04) ng/ml C-Reactive Protein 2.72 H (0-0.5) mg/dl B-Natriuretic Peptide 33 (0-100) pg/ml Total Protein 6.8 (6.0-8.3) gm/dl Albumin 3.5 (3.4-5.0) gm/dl Globulin 3.3 (2.5-4.0) gm/dl Albumin/Globulin Ratio 1.1 (0.9-2) SARS-CoV-2 (PCR) (Negative) Influenza Type A (PCR) (Neg) Influenza Type B (PCR) (Neg) RSV (RT-PCR) (Neg) 10/27/21 Range/Units 19:54 WBC (4.8-10.8) K/uL RBC (4.2-5.4) M/uL Hgb (12.0-16.0) g/dL Hct (37-47) % MCV (80-100) fL MCH (25-34) pg MCHC (32-36) g/dL RDW Std Deviation (36.4-46.3) fL RDW Coeff of Ana (11.5-14.5) % Plt Count (130-400) K/uL MPV (7.4-10.4) fL Immature Gran % (Auto) % Neut % (Auto) % Lymph % (Auto) % [place] % (Auto) % Eos % (Auto) % Baso % (Auto) % Neut # (Auto) (1.4-6.5) K/uL Lymph # (Auto) (1.2-3.4) K/uL [place] # (Auto) (0.11-0.59) K/uL Eos # (Auto) (0-0.5) K/uL Baso # (Auto) (0-0.2) K/uL Immature Gran # (Auto) (0.00-0.02) K/uL Sodium (136-145) mmol/L Potassium (3.5-5.1) mmol/L Chloride (98-107) mmol/L Carbon Dioxide (21-32) mmol/L Anion Gap (3-11) BUN (6-23) mg/dl Creatinine (0.6-1.2) mg/dl Est Cr Clr Drug Dosing ml/min Est GFR ( Amer) ml/min Est GFR (Non-Af Amer) ml/min BUN/Creatinine Ratio (10-20) Glucose (70-99(Fasting)) mg/dl Calcium (8.5-10.1) mg/dl Magnesium (1.7-2.4) mg/dl Total Bilirubin (0.2-1.0) mg/dl AST (13-39) U/L ALT (7-52) U/L Alkaline Phosphatase (34-104) U/L Troponin I (0-0.04) ng/ml C-Reactive Protein (0-0.5) mg/dl B-Natriuretic Peptide (0-100) pg/ml Total Protein (6.0-8.3) gm/dl Albumin (3.4-5.0) gm/dl Globulin (2.5-4.0) gm/dl Albumin/Globulin Ratio (0.9-2) SARS-CoV-2 (PCR) POSITIVE A* (Negative) Influenza Type A (PCR) Negative (Neg) Influenza Type B (PCR) Negative (Neg) RSV (RT-PCR) Negative (Neg) Imaging Data Radiologist's Impression: Chest X-Ray 10/27/21 20:04 XR chest 1V portable CLINICAL HISTORY: Cough. COMPARISON STUDY: Chest radiograph November 04, 2020. Chest CT October 21, 2020. FINDINGS: Patient is rotated. No pneumothorax or pleural effusion is noted. Mild right basilar opacity is present. Left lung is clear. There is no evidence for pulmonary edema. Cardiac size is normal. Mediastinal contours are unremarkable. There is no evidence for pulmonary edema. IMPRESSION: Mild right basilar opacity. This may reflect a focus of pneumonia or atelectasis. Radiographic follow-up is recommended. ACT 112: Negative or not required by law. Electronically signed by: Daniel Babb M.D. 10/27/2021 9:02 PM ECG Data Attestation: I personally reviewed and interpreted this ECG as follows: Indication: + SOB/dyspnea Rate (beats per minute): 94 Rhythm: + normal sinus ECG Intervals/blocks: + Normal QRS and + Normal QT ECG [place]: + Normal ECG ST segments: + Nonspecific ST abnormalities MDM Narrative This is a 65-year-old female who presents from home via EMS due to worsening shortness of breath, weakness, fatigue, decreased oral intake. Patient with a known history of underlying COPD/emphysema. Patient did finish a course of antibiotics and steroids recently, however is continued to feel worse. Several family members last week were diagnosed with COVID-19. Patient did not have any hypoxia with her usual amount of oxygen at 6 L/min. Patient was given a nebulizer treatment here while awaiting labs, chest x-ray, and COVID-19 swab. Patient found to be positive for COVID-19. Decadron 6 mg added. No evidence of congestive heart failure. I do not suspect ACS. I do not suspect occult bacterial pneumonia. Likely worse symptoms and COPD exacerbation secondary to Covid infection. Case discussed with hospitalist for additional evaluation and management. An order was placed for continuous cardiac monitoring. The monitor shows a rate of _87_ with _normal sinus_ rhythm. Impression & Plan Dyspnea, COVID-19, COPD (chronic obstructive pulmonary disease), Generalized weakness Discharge Plan Visit Data Chief Complaint: Illness Stated Complaint: GENERAL ILLNESS ED Provider: Karen Soto Discharge Problem: Dyspnea, COVID-19, COPD (chronic obstructive pulmonary disease), Generalized weakness Patient Disposition: Being Evaluated by Hospitalist
[2021-10-27 20:16] LABS: Basophils # (auto) 0.01 K/uL (0-0.2); Basophils % (auto) 0.2 %; Eosinophils # (auto) 0.04 K/uL (0-0.5); Hematocrit (blood only) 37.1 % (37-47); Hemoglobin 11.8 g/dL (12.0-16.0); Immature Granulocytes # (auto) 0.01 K/uL (0.00-0.02); Immature Granulocytes % (auto) 0.2 %; Lymphocytes # (auto) 1.27 K/uL (1.2-3.4); Lymphocytes % (auto) 31.4 %; Mean Corpuscular Hemoglobin 28.2 pg (25-34); Mean Corpuscular Hgb Conc 31.8 g/dL (32-36); Mean Corpuscular Volume 88.8 fL (80-100); Monocytes # (auto) 0.47 K/uL (0.11-0.59); Monocytes % (auto) 11.6 %; Neutrophils # (auto) 2.24 K/uL (1.4-6.5); Neutrophils % (auto) 55.6 %; Platelet Count 139 K/uL (130-400); RDW Coefficient of Variation 13.6 % (11.5-14.5); RDW Standard Deviation 44.6 fL (36.4-46.3); Red Blood Count 4.18 M/uL (4.2-5.4); White Blood Count 4.04 K/uL (4.8-10.8)
[2021-10-27 20:39] LABS: Troponin I < 0.03 ng/ml (0-0.04)
[2021-10-27 20:48] LABS: Alanine Aminotransferase 12 U/L (7-52); Albumin Globulin Ratio 1.1 (0.9-2); Albumin Level 3.5 gm/dl (3.4-5.0); Alkaline Phosphatase 71 U/L (34-104); Anion Gap 6 (3-11); Aspartate Aminotransferase 18 U/L (13-39); BUN Creatinine Ratio 18.1 (10-20); Bilirubin,Total 0.3 mg/dl (0.2-1.0); Blood Urea Nitrogen 19 mg/dl (6-23); Calcium 9.3 mg/dl (8.5-10.1); Carbon Dioxide 35 mmol/L (21-32); Chloride 95 mmol/L (98-107); Creatinine Clr Calc Pharmacy 48.4 ml/min; Est GFR (African American) 64.1 ml/min; Est GFR (Non-African American) 55.3 ml/min; Globulin 3.3 gm/dl (2.5-4.0); Glucose 99 mg/dl (70-99(Fasting)); Magnesium 1.7 mg/dl (1.7-2.4); Sodium 136 mmol/L (136-145); Total Protein 6.8 gm/dl (6.0-8.3)
[2021-10-27] MEDS ORDERED: ALBUT/IPRATROP 3MG/0.5MG NEB 3 ML VIAL NEB STA (20:54)
[2021-10-27] MEDS ORDERED: SODIUM CHLORIDE 0.9% 1000ML 1,000 ML IV SCH (21:00)
--- NOTE | 2021-10-27 21:03 | XRay Report ---
XR chest 1V portable CLINICAL HISTORY: Cough. COMPARISON STUDY: Chest radiograph November 04, 2020. Chest CT October 21, 2020. FINDINGS: Patient is rotated. No pneumothorax or pleural effusion is noted. Mild right basilar opacit y is present. Left lung is clear. There is no evidence for pulmonary edema. Cardiac size is normal. M ediastinal contours are unremarkable. There is no evidence for pulmonary edema. IMPRESSION: Mild right basilar opacity. This may reflect a focus of pneumonia or atelectasis. Radiog raphic follow-up is recommended. ACT 112: Negative or not required by law. Electronically signed by: Daniel Babb M.D. 10/27/2021 9:02 PM
[2021-10-27] MEDS ORDERED: dexAMETHasone**PF** 10 MG/ML VIAL IV ONE (21:08)
[2021-10-27 21:09] LABS: Influenza A virus by PCR Negative (Neg); Influenza B virus by PCR Negative (Neg); RSV by PCR Negative (Neg)
[2021-10-27 21:11] LABS: SARS CoV2 RNA(COVID-19) InHosp POSITIVE (Negative)
[2021-10-27 21:25] LABS: C Reactive Protein 2.72 mg/dl (0-0.5)
--- NOTE | 2021-10-27 23:35 | History & Physical Report ---
Date of Service October 27, 2021 Assessment & Plan (1) COVID-19: Plan: Patient unvaccinated. Saturations presently adequate on baseline O2 Dexamethasone given in ER -Monitor for now -Supplemental O2 as needed (2) Dyspnea: Plan: Worsening dyspnea. Saturations adequate -Continue COPD treatments -Albuterol, Ipratropium/Umeclidinium/Vilanterol (3) Hypertension: Plan: Chronic -Conitnue Carvedilol -Monitor (4) Chronic renal insufficiency: Plan: Near baseline -Continue to monitor History of Present Illness Chief Complaint: SOB Primary Care Provider: Beatriz Baker DO 65yo female with COPD, ROZ, Obesity hypoventilation and HTN presenting with SOB. Covid-19 POSITIVE. She is not vaccinated against Covid-19. She reports one week of cough, SOB as well as weakness, fatigue and poor appetite. She has multiple family members that are ill with Covid. On 6L of O2 at baseline Saturations adequate ER Course: Dexamethasone 6mg IV Allergies Allergy/AdvReac Type Severity Reaction Status Date / Time codeine AdvReac Mild SHAKING Verified 10/27/21 21:18 oxycodone AdvReac Unknown rash/shakes Verified 10/27/21 21:18 Home Medications Medication Instructions Recorded Confirmed Type carvedilol 6.25 mg tablet 6.25 mg PO BID #30 tab 11/06/20 10/27/21 Rx folic acid 400 mcg tablet 400 mcg PO QAM #30 tab 11/06/20 10/27/21 Rx aspirin 81 mg tablet,delayed 81 mg PO DAILY 12/01/20 10/27/21 History release glycopyrrolate 9 mcg-formoterol 2 puff INHALATION BID #10.7 g 06/18/21 10/27/21 Rx 4.8 mcg HFA aerosol inhaler (Bevespi Aerosphere) loratadine 10 mg tablet (Claritin) 10 mg PO DAILY #30 tab 06/27/21 10/27/21 Rx ipratropium bromide 0.02 % 2.5 ml INHALATION QID #187.5 ml 07/26/21 10/27/21 Rx solution for inhalation albuterol sulfate 90 mcg/actuation 2 inh INH QID PRN #8.5 g 08/02/21 10/27/21 Rx aerosol inhaler (Ventolin HFA) budesonide 0.5 mg/2 mL suspension 0.5 mg INHALATION BID #120 ml 08/30/21 10/27/21 Rx for nebulization albuterol sulfate 2.5 mg INHALATION Q4H PRN #300 ml 09/07/21 10/27/21 Rx metformin 1,000 mg tablet 1,000 mg PO BID #180 tab 09/27/21 10/27/21 Rx pantoprazole 40 mg tablet,delayed 40 mg PO DAILY #90 tab 09/27/21 10/27/21 Rx release baclofen 10 mg tablet 10 mg PO TID PRN #90 tab 09/30/21 10/27/21 Rx pravastatin 80 mg tablet 80 mg PO DAILY #90 tab 09/30/21 10/27/21 Rx fluticasone propionate 50 2 spray INTRANASAL DAILY PRN #15.8 10/04/21 10/27/21 Rx mcg/actuation nasal ml spray,suspension (Flonase Allergy Relief) tramadol 50 mg tablet 50 mg PO TID PRN #90 tab 10/04/21 10/27/21 Rx docusate sodium 100 mg capsule 100 mg PO BID #180 cap 10/05/21 10/27/21 Rx miconazole nitrate 2 % topical 1 spray TOPICAL BID PRN 10/27/21 10/27/21 History spray powder polyethylene glycol 3350 17 17 g PO DAILY PRN 10/27/21 10/27/21 History gram/dose oral powder (Miralax) sennosides 8.6 mg tablet 8.6 - 17.2 mg PO HS 10/27/21 10/27/21 History simethicone 80 mg chewable tablet 80 mg PO DIRECTED PRN 10/27/21 10/27/21 History Past Med/Surg History Medical History Anemia Chronic back pain Chronic renal insufficiency Chronic respiratory failure Chronic venous insufficiency Colonic dysmotility Hypercapnic respiratory failure Hypertension Lymphedema Osteoporosis Pulmonary nodules Vitamin D deficiency Surgical History History of cholecystectomy Hx of umbilical hernia repair Family History Sister Colorectal cancer Breast cancer Denies family history of Ovarian cancer Prostate cancer Myocardial infarction Social History Smoking Status: Never smoker Tobacco Type: Cigarettes Age Started Using Tobacco: 17; Age Quit Using Tobacco: 49; packs per day: 2; Cigarettes Per Day: 2 ppd quit 15 yrs ago; Second Hand Exposure: No; Hx Alcohol Use: No Hx Substance Use: No Preferred Language: Romanian Communication Ability: Unable Visual Impairment: Limited Hearing Ability: Normal 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 Required: No Beliefs That Will Affect Care: None marital status: Current Living Situation: Family Current Living Situation Comment: Lives with son, was just discharged from [place] current occupational status: retired Feels Safe at Home: Yes Childhood Exposure to Second-Hand Smoke: No caffeine: Yes (coffee x 1 per day Iced tea x 1 glass per day.) during the past year weight has: remained stable Dental Care, Regularly: No Physical Activity Frequency: Does not Exercise Seatbelt Use: never Sunscreen Use: No Assistive Devices: Oxygen - Continuous and Walker Review of Systems Review of Systems: All systems reviewed & are unremarkable except as noted in HPI & below Physical Exam Physical Exam: General: patient resting comfortably, NAD, non-toxic in appearance, AA&O x 4 Skin: warm, dry, intact, no rashes or lesions HEENT: NC/AT, PERRL, EOMI, anicteric sclera, conjunctiva without injection, external ear normal to inspection and nontender, nares patent, moist mucus membranes, dentition intact, no oropharyngeal lesions, neck supple, trachea midline, no LAD, no thyromegaly, no JVD Heart: +S1/S2, regular, no m/r/g Lungs: equal air entry bilaterally, no rales/rhonchi/wheezes Abd: +BS, soft, NT/ND, no masses/organomegaly/ascites Ext: warm, 2+ pulses in UE/LE bilaterally, no clubbing/cyanosis or edema Neuro: nonfocal, patient AA&O x 4, speech intact, no facial droop, moving all extremities on command with equal strength 5/5 Results & Data Results & Data ([facility]) Vital Signs (Past 12 Hours) Vital Signs Temp Pulse Resp BP Pulse Ox 10/27/21 19:16 37.6 C H 106 H 24 169/90 H 99 Laboratory Results Laboratory Results WBC 4.04 K/uL (4.8-10.8) L 10/27/21 19:50 RBC 4.18 M/uL (4.2-5.4) L 10/27/21 19:50 Hgb 11.8 g/dL (12.0-16.0) L 10/27/21 19:50 Hct 37.1 % (37-47) 10/27/21 19:50 MCV 88.8 fL (80-100) 10/27/21 19:50 MCH 28.2 pg (25-34) 10/27/21 19:50 MCHC 31.8 g/dL (32-36) L 10/27/21 19:50 RDW Std Deviation 44.6 fL (36.4-46.3) 10/27/21 19:50 RDW Coeff of Ana 13.6 % (11.5-14.5) 10/27/21 19:50 Plt Count 139 K/uL (130-400) 10/27/21 19:50 MPV 10.0 fL (7.4-10.4) 10/27/21 19:50 Immature Gran % (Auto) 0.2 % 10/27/21 19:50 Neut % (Auto) 55.6 % 10/27/21 19:50 Lymph % (Auto) 31.4 % 10/27/21 19:50 [place] % (Auto) 11.6 % 10/27/21 19:50 Eos % (Auto) 1.0 % 10/27/21 19:50 Baso % (Auto) 0.2 % 10/27/21 19:50 Neut # (Auto) 2.24 K/uL (1.4-6.5) 10/27/21 19:50 Lymph # (Auto) 1.27 K/uL (1.2-3.4) 10/27/21 19:50 [place] # (Auto) 0.47 K/uL (0.11-0.59) 10/27/21 19:50 Eos # (Auto) 0.04 K/uL (0-0.5) 10/27/21 19:50 Baso # (Auto) 0.01 K/uL (0-0.2) 10/27/21 19:50 Immature Gran # (Auto) 0.01 K/uL (0.00-0.02) 10/27/21 19:50 Sodium 136 mmol/L (136-145) 10/27/21 19:50 Potassium 5.0 mmol/L (3.5-5.1) 10/27/21 19:50 Chloride 95 mmol/L (98-107) L 10/27/21 19:50 Carbon Dioxide 35 mmol/L (21-32) H 10/27/21 19:50 Anion Gap 6 (3-11) 10/27/21 19:50 BUN 19 mg/dl (6-23) 10/27/21 19:50 Creatinine 1.05 mg/dl (0.6-1.2) 10/27/21 19:50 Est Cr Clr Drug Dosing 48.4 ml/min 10/27/21 19:50 Est GFR ( Amer) 64.1 ml/min 10/27/21 19:50 Est GFR (Non-Af Amer) 55.3 ml/min 10/27/21 19:50 BUN/Creatinine Ratio 18.1 (10-20) 10/27/21 19:50 Glucose 99 mg/dl (70-99(Fasting)) 10/27/21 19:50 Calcium 9.3 mg/dl (8.5-10.1) 10/27/21 19:50 Magnesium 1.7 mg/dl (1.7-2.4) 10/27/21 19:50 Total Bilirubin 0.3 mg/dl (0.2-1.0) 10/27/21 19:50 AST 18 U/L (13-39) 10/27/21 19:50 ALT 12 U/L (7-52) 10/27/21 19:50 Alkaline Phosphatase 71 U/L (34-104) 10/27/21 19:50 Troponin I < 0.03 ng/ml (0-0.04) 10/27/21 19:50 C-Reactive Protein 2.72 mg/dl (0-0.5) H 10/27/21 19:50 B-Natriuretic Peptide 33 pg/ml (0-100) 10/27/21 19:50 Total Protein 6.8 gm/dl (6.0-8.3) 10/27/21 19:50 Albumin 3.5 gm/dl (3.4-5.0) 10/27/21 19:50 Globulin 3.3 gm/dl (2.5-4.0) 10/27/21 19:50 Albumin/Globulin Ratio 1.1 (0.9-2) 10/27/21 19:50 Procalcitonin 0.07 ng/ml (0-0.5) 10/27/21 19:50 SARS-CoV-2 (PCR) POSITIVE (Negative) A* 10/27/21 19:54 Influenza Type A (PCR) Negative (Neg) 10/27/21 19:54 Influenza Type B (PCR) Negative (Neg) 10/27/21 19:54 RSV (RT-PCR) Negative (Neg) 10/27/21 19:54 Impressions Chest X-Ray 10/27/21 20:04 XR chest 1V portable CLINICAL HISTORY: Cough. COMPARISON STUDY: Chest radiograph November 04, 2020. Chest CT October 21, 2020. FINDINGS: Patient is rotated. No pneumothorax or pleural effusion is noted. Mild right basilar opacity is present. Left lung is clear. There is no evidence for pulmonary edema. Cardiac size is normal. Mediastinal contours are unremarkable. There is no evidence for pulmonary edema. IMPRESSION: Mild right basilar opacity. This may reflect a focus of pneumonia or atelectasis. Radiographic follow-up is recommended. ACT 112: Negative or not required by law. Electronically signed by: Daniel Babb M.D. 10/27/2021 9:02 PM Code Status & VTE Plan VTE Prophylaxis Plan VTE Prophylaxis will be ordered: Yes PG Care Time/CCT Total # of Minutes Spent Total Time Spent with Patient: Total time spent is greater than 50% in coordination of care (as documented) at patient's floor/unit and/or counseling patient: Coding Level of Care Code INT OBSERVATION CARE 50M LVL 2 Diagnoses COVID-19 U07.1 Dyspnea R06.02 Dyspnea type: shortness of breath Hypertension I10 Chronic renal insufficiency N18.9 (1) Dyspnea Dyspnea type: shortness of breath Qualified Code(s): R06.02 - Shortness of breath
[2021-10-28] MEDS ORDERED: GLUCAGON FOR INJ 1 MG VIAL SQ PRN (00:32)
[2021-10-28] MEDS ORDERED: CARBOHYDRATES FOR HYPOGLYCEMIA PO PRN (00:32)
[2021-10-28] MEDS ORDERED: GLUCOSE 10 TABS/TUBE PO PRN (00:32)
[2021-10-28] MEDS ORDERED: DEXTROSE 50% 50 ML SYRINGE IV PRN (00:32)
[2021-10-28] MEDS ORDERED: ALBUTEROL HFA 8 GM INHALER INH PRN (00:32)
[2021-10-28] MEDS ORDERED: GLUCOSE 40% GEL 15 GM TUBE PO PRN (00:32)
[2021-10-28] MEDS ORDERED: BACLOFEN 10 MG TAB PO PRN (00:32)
[2021-10-28] MEDS ORDERED: ONDANSETRON INJ 2 MG/ML 2 ML VIAL IV PRN (00:32)
[2021-10-28] MEDS ORDERED: POLYETHYLENE (MIRALAX) 17 GM PACK PO PRN (00:32)
[2021-10-28] MEDS ORDERED: SENNA 8.6 MG TAB PO PRN (01:15)
[2021-10-28 04:48] LABS: Basophils # (auto) 0.01 K/uL (0-0.2); Basophils % (auto) 0.4 %; Hematocrit (blood only) 37.4 % (37-47); Hemoglobin 11.7 g/dL (12.0-16.0); Lymphocytes # (auto) 0.64 K/uL (1.2-3.4); Lymphocytes % (auto) 23.4 %; Mean Corpuscular Hgb Conc 31.3 g/dL (32-36); Mean Corpuscular Volume 89.5 fL (80-100); Mean Platelet Volume 9.8 fL (7.4-10.4); Monocytes # (auto) 0.11 K/uL (0.11-0.59); Neutrophils # (auto) 1.98 K/uL (1.4-6.5); Neutrophils % (auto) 72.2 %; Platelet Count 123 K/uL (130-400); RDW Coefficient of Variation 13.5 % (11.5-14.5); RDW Standard Deviation 44.7 fL (36.4-46.3); Red Blood Count 4.18 M/uL (4.2-5.4); White Blood Count 2.74 K/uL (4.8-10.8)
[2021-10-28 05:26] LABS: Albumin Level 3.4 gm/dl (3.4-5.0); BUN Creatinine Ratio 19.6 (10-20); Bilirubin Direct 0.1 mg/dl (0-0.2); Bilirubin,Total 0.2 mg/dl (0.2-1.0); Creatinine Clr Calc Pharmacy 47.5 ml/min; Est GFR (African American) 62.7 ml/min; Est GFR (Non-African American) 54.1 ml/min; Potassium 4.7 mmol/L (3.5-5.1); Total Protein 6.6 gm/dl (6.0-8.3)
[2021-10-28] MEDS: IPRATROPIUM BROMIDE NEB SOLN 0.02% 2.5 ML VIAL INH SCH ×4 (07:43→19:50)
[2021-10-28] MEDS ORDERED: FORMOTEROL INH SCH (09:00)
[2021-10-28] MEDS ORDERED: GLYCOPYRROLATE INH SCH (09:00)
[2021-10-28] MEDS ORDERED: [UNRECOGNIZED DRUG - OTHER] INH SCH (09:00)
[2021-10-28] MEDS: ASPIRIN 81 MG ECTAB PO SCH (09:36)
[2021-10-28] MEDS: FOLIC ACID 400 MCG TAB PO SCH (09:36)
[2021-10-28] MEDS: DOCUSATE SODIUM 100 MG CAP PO SCH ×2 (09:36→22:04)
[2021-10-28] MEDS: carvediloL 6.25 MG TAB PO SCH ×2 (09:36→22:04)
[2021-10-28] MEDS: PANTOprazole 40 MG TAB PO SCH (09:37)
[2021-10-28] MEDS: guaiFENesin 600 MG TABCR PO SCH ×2 (09:37→22:04)
[2021-10-28] MEDS: PRAVASTATIN SOD 40 MG TAB PO SCH (09:37)
[2021-10-28] MEDS: ENOXAPARIN INJ 40 MG/0.4 ML SYR SQ SCH ×2 (09:37→22:00)
[2021-10-28] MEDS: LORATADINE 10 MG TAB PO SCH (09:37)
[2021-10-28] MEDS: UMECLIDINIUM/VILANTEROL 62.5/25MCG 7 PUFFS/INHALER INH SCH (09:38)
[2021-10-28] MEDS: INSULIN ASPART PER UNIT SC SCH ×4 (09:44→22:20)
[2021-10-28] MEDS ORDERED: REMDESIVIR 200 MG in SODIUM CHLORIDE 0.9% 210 ML IV STA (10:00)
[2021-10-28] MEDS: INSULIN GLARGINE SOLOSTAR 100 UNITS/ML 3 ML PEN SC SCH (10:10)
--- NOTE | 2021-10-28 12:10 | Electrocardiogram Report ---
Test Reason : Blood Pressure : / mmHG Vent. Rate : 099 BPM Atrial Rate : 099 BPM P-R Int : 120 ms QRS Dur : 070 ms QT Int : 310 ms P-R-T Axes : 020 025 068 degrees QTc Int : 397 ms Normal sinus rhythm Nonspecific ST and T wave abnormality Abnormal ECG When compared with ECG of 28-OCT-2020 22:46, ST now depressed in Lateral leads Confirmed by Johnson Castañeda ([id number]) on 10/28/2021 12:10:11 PM Referred By: REFERRED SELF Confirmed By:Mt Castañeda
--- NOTE | 2021-10-28 13:11 | Hospitalist Progress Note ---
Date of Service October 28, 2021 Assessment & Plan (1) COVID-19: Plan: Patient is an unvaccinated female. Presented to the hospital worsening shortness of breath. Positive for COVID-19. Chest x-ray showed evidence of infiltrates. Started on IV remdesivir and Decadron Monitor inflammatory markers (2) Acute respiratory failure with hypoxia: Plan: Due to COVID-19 pneumonia. Currently on 5 L of oxygen through nasal cannula Wean as tolerated (3) Dyspnea: Plan: Worsening dyspnea. Saturations adequate -Continue COPD treatments -Albuterol, Ipratropium/Umeclidinium/Vilanterol (4) Hypertension: Plan: Chronic -Conitnue Carvedilol -Monitor (5) Chronic renal insufficiency: Plan: Near baseline -Continue to monitor Admission and Anticipated Discharge Date Admission Date: October 27, 2021 Subjective Patient seen and examined in emergency department, states shortness of breath is now worsening Review of Systems Review of Systems: All systems reviewed are negative, apart from the ones contained in the history. Physical Exam Physical Exam: The patient is awake, alert and oriented 3, well developed and well nourished, normocephalic and atraumatic, in mild respiratory distress HEENT--PERRL, EOMI, mucous membranes and oropharynx mildly dry Neck--supple. No JVD. No bruits. Thyroid normal, trachea midline, no adenopathy. Heart--normal S1 and S2. No murmurs, rubs or gallops. Lungs--reduced air entry on auscultation Abdomen--normal bowel sounds and soft. Mild epigastric and left sided abdominal pain Extremities--no cyanosis or clubbing. No edema. Dermatologic--normal skin turgor, normal color, no abnormal lymph nodes, no rash. Neurologic--cranial nerves II through XII grossly intact. Rheumatologic--normal range of motion. Psychiatric--normal affect. Results & Data Results & Data ([facility]) Vital Signs (Past 12 Hours) Vital Signs Pulse Pulse Resp BP BP Pulse Ox 10/28/21 12:17 71 18 119/75 93 10/28/21 11:59 74 17 91 10/28/21 11:30 81 21 92 10/28/21 11:00 86 20 94 10/28/21 10:30 102 H 22 92 10/28/21 10:00 84 24 90 10/28/21 09:31 77 19 155/86 H 92 10/28/21 09:30 83 19 93 10/28/21 09:00 81 18 99 10/28/21 08:30 64 25 H 99 10/28/21 08:00 69 22 98 10/28/21 07:41 68 18 99 10/28/21 07:30 67 21 99 10/28/21 07:00 73 23 98 10/28/21 06:00 74 22 97 10/28/21 05:30 82 17 96 10/28/21 05:00 85 18 94 10/28/21 04:33 107 H 15 74 L 10/28/21 04:00 73 14 100 10/28/21 03:30 79 12 99 10/28/21 03:00 71 13 100 10/28/21 02:06 73 20 99 PG Care Time/CCT Total # of Minutes Spent Total Time Spent with Patient: Total time spent is greater than 50% in coordination of care (as documented) at patient's floor/unit and/or counseling patient: Coding Level of Care Code 30202 Subseq Hosp Care Lvl 2 Diagnoses COVID-19 U07.1 Dyspnea R06.02 Dyspnea type: shortness of breath Hypertension I10 Chronic renal insufficiency N18.9 Acute respiratory failure with hypoxia J96.01 Time Spent (min) 35 (1) Dyspnea Dyspnea type: shortness of breath Qualified Code(s): R06.02 - Shortness of breath
--- NOTE | 2021-10-28 20:25 | Communication Note ---
Date of Service: October 28, 2021 Patient is currently med/surg w/o telemetry status, but is in room 203. I will upgrade her to med/tele status for monitoring of vitals as she is needing oxymask at least intermittently.
[2021-10-28] MEDS: SENNA 8.6 MG TAB PO SCH (22:05)
[2021-10-28] MEDS: ACETAMINOPHEN 325 MG TAB PO PRN (22:06)
[2021-10-28] MEDS ORDERED: dexAMETHasone 6 MG in SYRINGE 0 ML IV ONE (23:00)
[2021-10-29] MEDS: IPRATROPIUM BROMIDE NEB SOLN 0.02% 2.5 ML VIAL INH SCH ×4 (02:02→15:37)
[2021-10-29] MEDS: ACETAMINOPHEN 325 MG TAB PO PRN (02:21)
[2021-10-29 07:52] LABS: Hemoglobin 10.8 g/dL (12.0-16.0); Mean Corpuscular Hemoglobin 28.1 pg (25-34); Mean Corpuscular Hgb Conc 31.8 g/dL (32-36); Mean Corpuscular Volume 88.5 fL (80-100); Mean Platelet Volume 10.5 fL (7.4-10.4); Platelet Count 130 K/uL (130-400); RDW Coefficient of Variation 13.7 % (11.5-14.5); RDW Standard Deviation 44.5 fL (36.4-46.3); Red Blood Count 3.84 M/uL (4.2-5.4)
[2021-10-29 08:09] LABS: Estimated Average Glucose 94 mg/dl; Hemoglobin A1C 4.9 % (4.5-5.6)
[2021-10-29 08:36] LABS: BUN Creatinine Ratio 31.1 (10-20); C Reactive Protein 2.52 mg/dl (0-0.5); Calcium 8.6 mg/dl (8.5-10.1); Est GFR (African American) 65.6 ml/min; Est GFR (Non-African American) 56.6 ml/min; Potassium 4.7 mmol/L (3.5-5.1)
[2021-10-29 08:38] LABS: Ferritin 215.4 ng/ml (8-388)
[2021-10-29] MEDS: ENOXAPARIN INJ 40 MG/0.4 ML SYR SQ SCH ×2 (08:40→18:54)
[2021-10-29] MEDS: carvediloL 6.25 MG TAB PO SCH ×2 (08:44→20:41)
[2021-10-29] MEDS: guaiFENesin 600 MG TABCR PO SCH ×2 (08:47→20:42)
[2021-10-29] MEDS: DOCUSATE SODIUM 100 MG CAP PO SCH ×2 (08:48→20:42)
[2021-10-29] MEDS: UMECLIDINIUM/VILANTEROL 62.5/25MCG 7 PUFFS/INHALER INH SCH (08:50)
[2021-10-29] MEDS: INSULIN ASPART PER UNIT SC SCH ×4 (08:52→20:44)
[2021-10-29] MEDS: dexAMETHasone 6 MG in SYRINGE 0 ML IV SCH (08:55)
[2021-10-29] MEDS: traMADol HCL 50 MG TABLET PO PRN (09:01)
[2021-10-29] MEDS: INSULIN GLARGINE SOLOSTAR 100 UNITS/ML 3 ML PEN SC SCH (09:36)
[2021-10-29] MEDS: PRAVASTATIN SOD 40 MG TAB PO SCH (10:30)
[2021-10-29] MEDS: LORATADINE 10 MG TAB PO SCH (10:30)
[2021-10-29] MEDS: PANTOprazole 40 MG TAB PO SCH (10:30)
[2021-10-29] MEDS: FOLIC ACID 400 MCG TAB PO SCH (10:31)
[2021-10-29] MEDS: ASPIRIN 81 MG ECTAB PO SCH (10:31)
[2021-10-29] MEDS: REMDESIVIR 100 MG in SODIUM CHLORIDE 0.9% 230 ML IV SCH (12:41)
[2021-10-29] MEDS ORDERED: COUGH DROP (SUGAR FREE) LOZ 24 LOZ/1 BOX BUCCAL ONE (15:38)
[2021-10-29] MEDS: SIMETHICONE 80 MG CHEW PO PRN (17:07)
[2021-10-29] MEDS: ALBUT/IPRATROP 3MG/0.5MG NEB 3 ML VIAL NEB SCH (19:18)
--- NOTE | 2021-10-29 20:27 | Hospitalist Progress Note ---
Date of Service October 29, 2021 Assessment & Plan (1) Acute and chronic respiratory failure with hypoxia: Plan: acute component 2nd to COPD flare with COVID-19 pneumonia. O2 requirement is just above baseline amount of 6 L NC continuously. Supportive care, steroids, etc. (2) Pneumonia due to COVID-19 virus: Plan: day #2 of dexamethasone 6mg daily. day #2 of Remdesivir. add flutter. encourage incentive park. mucinex BID. currently on atrovent nebs - will add albuterol nebs. side positioning and pulmonary toilet discussed with patient. (3) COPD with exacerbation: Plan: cont IV dexamethasone. inhalers. add albuterol nebs to her atroven nebs. procal noted to be negative. flutter, IS, etc. (4) Hypertension: Plan: cont coreg BPs high may need adjustment of coreg or additional agent (5) Pancytopenia: Plan: viral suppression from COVID? daily CBC h/o low folate - replacing (6) Chronic kidney disease, stage 3a: Plan: baseline CrCL high 40s bmp am (7) DVT prophylaxis: Plan: lovenox 40mg bid Plan: son updated by phone this evening Admission and Anticipated Discharge Date Admission Date: October 29, 2021 Subjective patient lying in bed during the visit she c/o sore throat - asks for lozenges she is tired, weak she had a hard time moving around in the bed on her own accord she had a difficult time getting comfortable; she states she usually doesn't sleep in the bed but on her couch at home does confirm she uses 6 L NC O2 at her home was not vaccinated tele overnight wnl Review of Systems Review of Systems: gen - no fevers or chills; weak cv - no chest pain pulm - cough, dyspnea GI - no abd pain Physical Exam Physical Exam: gen - irritable, did get dyspneic just moving/rolling in the bed mouth - MMM neck - no JVD heart - RRR, s1 s2 lungs - diffuse, mild expiratory wheezing, occasional crackle abd - very large ventral hernia - reducible; BS+, NT, soft ext - no edema, pulses 2+ b/l Results & Data Results & Data ([facility] [place]) Vital Signs (Past 12 Hours) Vital Signs Temp Pulse Pulse Resp BP Pulse Ox 10/29/21 19:18 87 20 92 10/29/21 17:49 70 10/29/21 16:41 36.8 C 78 20 121/52 L 93 10/29/21 15:37 112 H 20 93 10/29/21 11:50 77 20 94 10/29/21 11:12 36.4 C L 69 20 103/48 L 95 Laboratory Results labs reviewed Diagnostic Findings cxr from admission reviewed PG Care Time/CCT Total # of Minutes Spent Total Time Spent with Patient: Total time spent is greater than 50% in coordination of care (as documented) at patient's floor/unit and/or counseling patient: Coding Level of Care Code 96947 Subseq Hosp Care Lvl 2 Diagnoses Acute and chronic respiratory failure with hypoxia J96.21 Pneumonia due to COVID-19 virus U07.1; J12.82 COPD with exacerbation J44.1 Hypertension I10 Pancytopenia D61.818 Chronic kidney disease, stage 3a N18.31 DVT prophylaxis Z29.9
[2021-10-29] MEDS: SENNA 8.6 MG TAB PO SCH (20:41)
[2021-10-30] MEDS: ALBUT/IPRATROP 3MG/0.5MG NEB 3 ML VIAL NEB SCH ×5 (00:14→21:23)
[2021-10-30] MEDS: SIMETHICONE 80 MG CHEW PO PRN ×2 (04:30→08:58)
[2021-10-30] MEDS ORDERED: NURSING DECISION MEDICATION ONE (05:07)
[2021-10-30] MEDS ORDERED: SODIUM CHLORIDE 0.65% NA SOLN 45 ML (OCEAN) ONE (05:18)
[2021-10-30] MEDS ORDERED: SODIUM CHLORIDE 0.65% NA SOLN 45 ML (OCEAN) PRN (05:27)
[2021-10-30 06:15] LABS: Basophils # (auto) 0.01 K/uL (0-0.2); Basophils % (auto) 0.2 %; Eosinophils # (auto) 0.01 K/uL (0-0.5); Eosinophils % (auto) 0.2 %; Hematocrit (blood only) 36.5 % (37-47); Hemoglobin 11.7 g/dL (12.0-16.0); Immature Granulocytes # (auto) 0.01 K/uL (0.00-0.02); Immature Granulocytes % (auto) 0.2 %; Lymphocytes # (auto) 1.21 K/uL (1.2-3.4); Lymphocytes % (auto) 24.7 %; Mean Corpuscular Hemoglobin 28.3 pg (25-34); Mean Corpuscular Hgb Conc 32.1 g/dL (32-36); Mean Corpuscular Volume 88.2 fL (80-100); Mean Platelet Volume 9.8 fL (7.4-10.4); Monocytes # (auto) 0.41 K/uL (0.11-0.59); Monocytes % (auto) 8.4 %; Neutrophils # (auto) 3.25 K/uL (1.4-6.5); Neutrophils % (auto) 66.3 %; Platelet Count 121 K/uL (130-400); RDW Coefficient of Variation 13.5 % (11.5-14.5); RDW Standard Deviation 43.8 fL (36.4-46.3); Red Blood Count 4.14 M/uL (4.2-5.4)
[2021-10-30 06:48] LABS: BUN Creatinine Ratio 33.6 (10-20); Est GFR (African American) 60.6 ml/min; Est GFR (Non-African American) 52.3 ml/min; Potassium 3.7 mmol/L (3.5-5.1)
[2021-10-30] MEDS: ENOXAPARIN INJ 40 MG/0.4 ML SYR SQ SCH ×2 (08:45→20:27)
[2021-10-30] MEDS: dexAMETHasone 6 MG in SYRINGE 0 ML IV SCH (08:45)
[2021-10-30] MEDS: carvediloL 6.25 MG TAB PO SCH ×2 (08:46→20:28)
[2021-10-30] MEDS: PANTOprazole 40 MG TAB PO SCH (08:46)
[2021-10-30] MEDS: DOCUSATE SODIUM 100 MG CAP PO SCH ×2 (08:46→22:00)
[2021-10-30] MEDS: guaiFENesin 600 MG TABCR PO SCH ×2 (08:47→20:28)
[2021-10-30] MEDS: LORATADINE 10 MG TAB PO SCH (08:47)
[2021-10-30] MEDS: FOLIC ACID 400 MCG TAB PO SCH (08:47)
[2021-10-30] MEDS: PRAVASTATIN SOD 40 MG TAB PO SCH (08:47)
[2021-10-30] MEDS: ASPIRIN 81 MG ECTAB PO SCH (08:48)
[2021-10-30] MEDS: UMECLIDINIUM/VILANTEROL 62.5/25MCG 7 PUFFS/INHALER INH SCH (08:50)
[2021-10-30] MEDS: INSULIN ASPART PER UNIT SC SCH ×4 (09:54→20:28)
[2021-10-30] MEDS: REMDESIVIR 100 MG in SODIUM CHLORIDE 0.9% 230 ML IV SCH (12:59)
[2021-10-30] MEDS: traMADol HCL 50 MG TABLET PO PRN (14:20)
--- NOTE | 2021-10-30 20:27 | Hospitalist Progress Note ---
Date of Service October 30, 2021 Assessment & Plan (1) Acute and chronic respiratory failure with hypoxia: Plan: acute component 2nd to COPD flare with COVID-19 pneumonia. O2 requirement 6-8 Liters acutely. chronic - on 6 L at home. Supportive care, steroids, etc. (2) Pneumonia due to COVID-19 virus: Plan: day #3 of dexamethasone 6mg daily. Could consider a dose increase to 6mg BID, as needed, due to COPD. day #3 of Remdesivir. cont flutter valve and incentive park. mucinex BID. cont albuterol/atrovent nebs. (3) COPD with exacerbation: Plan: cont IV dexamethasone. consider increase in steroids. cont inhalers. cont nebs. cont O2. procal noted to be negative. flutter, IS, etc. (4) Hypertension: Plan: cont coreg BPs improved (5) Pancytopenia: Plan: viral suppression from COVID? wbc improved platelets mildly low but stable daily CBC h/o low folate - replacing (6) Chronic kidney disease, stage 3a: Plan: baseline CrCL high 40s bmp am (7) DVT prophylaxis: Plan: lovenox 40mg bid Plan: son updated by phone this evening and last evening will need PT/OT Admission and Anticipated Discharge Date Admission Date: October 29, 2021 Subjective patient lying in bed during the visit she was sleeping initially awoke easily c/o fatigue, weakness, cough, wheezing, no appetite (has chronic poor appetite, but worse during her COVID illness) minimal sputum no fevers did lose her sense of smell tele overnight wnl Review of Systems Review of Systems: gen - no fevers or chills HENT - nose is dry/congested CV - no orthopnea GI - mild epigastric pain/upset Physical Exam Physical Exam: gen - looks sick, weak, no acute distress mouth - MM dry; nose - dry neck - no JVD heart - RRR, s1 s2 lungs - mild expiratory wheezing with occasional crackles bases; no increased work of breathing abd - very large ventral hernia - reducible; BS+, NT, soft ext - no edema, pulses 2+ b/l Results & Data Results & Data ([facility]) Vital Signs (Past 12 Hours) Vital Signs Temp Pulse Pulse Resp BP Pulse Ox 10/30/21 19:36 36.6 C 76 24 164/67 H 94 10/30/21 16:00 36.8 C 67 15 135/71 96 10/30/21 15:29 67 20 94 10/30/21 15:13 96 10/30/21 15:00 71 10/30/21 11:54 37 C 75 18 130/64 93 10/30/21 11:03 82 18 94 Laboratory Results Laboratory Results - last 24 hr 10/29/21 10/30/21 10/30/21 20:37 05:57 05:57 WBC 4.90 RBC 4.14 L Hgb 11.7 L Hct 36.5 L MCV 88.2 MCH 28.3 MCHC 32.1 RDW Std Deviation 43.8 RDW Coeff of Ana 13.5 Plt Count 121 L MPV 9.8 Immature Gran % (Auto) 0.2 Neut % (Auto) 66.3 Lymph % (Auto) 24.7 [place] % (Auto) 8.4 Eos % (Auto) 0.2 Baso % (Auto) 0.2 Neut # (Auto) 3.25 Lymph # (Auto) 1.21 [place] # (Auto) 0.41 Eos # (Auto) 0.01 Baso # (Auto) 0.01 Immature Gran # (Auto) 0.01 Sodium 140 Potassium 3.7 D Chloride 101 Carbon Dioxide 33 H Anion Gap 6 BUN 37 H Creatinine 1.10 Est Cr Clr Drug Dosing 46.0 Est GFR ( Amer) 60.6 Est GFR (Non-Af Amer) 52.3 BUN/Creatinine Ratio 33.6 H Glucose 80 POC Glucose 90 Calcium 9.0 Total Creatine Kinase 41 10/30/21 10/30/21 10/30/21 07:53 11:29 17:09 WBC RBC Hgb Hct MCV MCH MCHC RDW Std Deviation RDW Coeff of Ana Plt Count MPV Immature Gran % (Auto) Neut % (Auto) Lymph % (Auto) [place] % (Auto) Eos % (Auto) Baso % (Auto) Neut # (Auto) Lymph # (Auto) [place] # (Auto) Eos # (Auto) Baso # (Auto) Immature Gran # (Auto) Sodium Potassium Chloride Carbon Dioxide Anion Gap BUN Creatinine Est Cr Clr Drug Dosing Est GFR ( Amer) Est GFR (Non-Af Amer) BUN/Creatinine Ratio Glucose POC Glucose 77 113 H 108 H Calcium Total Creatine Kinase PG Care Time/CCT Total # of Minutes Spent Total Time Spent with Patient: Total time spent is greater than 50% in coordination of care (as documented) at patient's floor/unit and/or counseling patient: Coding Level of Care Code 76144 Subseq Hosp Care Lvl 2 Diagnoses Acute and chronic respiratory failure with hypoxia J96.21 Pneumonia due to COVID-19 virus U07.1; J12.82 COPD with exacerbation J44.1 Hypertension I10 Pancytopenia D61.818 Chronic kidney disease, stage 3a N18.31 DVT prophylaxis Z29.9
[2021-10-30] MEDS: MUPIROCIN 2% OINT 22 GM TUBE INTNAS SCH (20:28)
[2021-10-30] MEDS: SENNA 8.6 MG TAB PO SCH (22:00)
[2021-10-31] MEDS: SIMETHICONE 80 MG CHEW PO PRN ×4 (01:13→23:34)
[2021-10-31] MEDS: traMADol HCL 50 MG TABLET PO PRN ×2 (01:13→18:57)
[2021-10-31] MEDS: ALBUT/IPRATROP 3MG/0.5MG NEB 3 ML VIAL NEB SCH ×6 (01:42→23:40)
[2021-10-31] MEDS: ENOXAPARIN INJ 40 MG/0.4 ML SYR SQ SCH ×2 (06:14→18:22)
[2021-10-31 06:47] LABS: Hematocrit (blood only) 34.9 % (37-47); Hemoglobin 11.2 g/dL (12.0-16.0); Mean Corpuscular Hemoglobin 28.2 pg (25-34); Mean Corpuscular Hgb Conc 32.1 g/dL (32-36); Mean Corpuscular Volume 87.9 fL (80-100); Mean Platelet Volume 10.4 fL (7.4-10.4); Platelet Count 119 K/uL (130-400); RDW Coefficient of Variation 13.7 % (11.5-14.5); Red Blood Count 3.97 M/uL (4.2-5.4); White Blood Count 5.95 K/uL (4.8-10.8)
[2021-10-31 07:13] LABS: BUN Creatinine Ratio 37.6 (10-20); Calcium 9.1 mg/dl (8.5-10.1); Creatinine Clr Calc Pharmacy 50.4 ml/min; Est GFR (African American) 67.2 ml/min; Magnesium 1.6 mg/dl (1.7-2.4); Potassium 3.6 mmol/L (3.5-5.1)
[2021-10-31] MEDS: LORATADINE 10 MG TAB PO SCH (08:14)
[2021-10-31] MEDS: dexAMETHasone 6 MG in SYRINGE 0 ML IV SCH (08:14)
[2021-10-31] MEDS: ASPIRIN 81 MG ECTAB PO SCH (08:14)
[2021-10-31] MEDS: FOLIC ACID 400 MCG TAB PO SCH (08:14)
[2021-10-31] MEDS: guaiFENesin 600 MG TABCR PO SCH ×2 (08:15→20:58)
[2021-10-31] MEDS: carvediloL 6.25 MG TAB PO SCH ×2 (08:15→20:59)
[2021-10-31] MEDS: PRAVASTATIN SOD 40 MG TAB PO SCH (08:16)
[2021-10-31] MEDS: PANTOprazole 40 MG TAB PO SCH (08:16)
[2021-10-31] MEDS: MUPIROCIN 2% OINT 22 GM TUBE INTNAS SCH ×2 (08:18→20:58)
[2021-10-31] MEDS: INSULIN ASPART PER UNIT SC SCH ×4 (08:19→20:58)
[2021-10-31] MEDS: UMECLIDINIUM/VILANTEROL 62.5/25MCG 7 PUFFS/INHALER INH SCH (08:19)
[2021-10-31] MEDS: DOCUSATE SODIUM 100 MG CAP PO SCH ×2 (08:19→20:59)
[2021-10-31] MEDS: REMDESIVIR 100 MG in SODIUM CHLORIDE 0.9% 230 ML IV SCH (11:20)
--- NOTE | 2021-10-31 12:31 | Hospitalist Progress Note ---
Date of Service October 31, 2021 Assessment & Plan (1) Acute and chronic respiratory failure with hypoxia: Plan: 2/2 COVID-19 pneumonia plus/minus superimposed COPD Patient with home oxygen requirement of up to 6 L of oxygen, requiring intermittently 8 L during admission Patient down to six at rest but desats easily with fatigue and continued wheezing (2) Pneumonia due to COVID-19 virus: Plan: Continue dexamethasone, increased from daily to twice daily dosing for superimposed COPD exacerbation with ongoing wheezing. We will continue twice daily dosing for 5 days then decrease to daily. Continue remdesivir, 5-day course complete 11/02/2021 Continue flutter valve and incentive spirometry Continue Mucinex twice daily Continue albuterol/Atrovent nebulizers (3) COPD with exacerbation: Plan: Dexamethasone as noted above Inhalers as above Nebulizers as noted Titrate oxygen to greater than 88-90% Continue flutter valve incentive spirometry Patient has had a negative pro-[place] on admission Will add azithromycin for 3-day 500 course for treatment of COPD. QTc <400 (4) Hypertension: Plan: -cont coreg -BPs improved (5) Pancytopenia: Plan: -suspect 2/2 viral suppression. -wbc improved -platelets mildly low but stable -daily CBC - h/o low folate, continue folate daily (6) Chronic kidney disease, stage 3a: Plan: -baseline CrCL high 40s -bmp am (7) DVT prophylaxis: Plan: lovenox 40mg bid Plan: PT/OT: Recommend return home when medical stable Admission and Anticipated Discharge Date Admission Date: October 29, 2021 Subjective Laying in bed, patient reports she is very fatigued today. Is sleeping back to sleep. Reports she feels about the same as yesterday, continues to have wheezing which is improved but not resolved with breathing treatments. No chest pain, chest pressure. No shortness of breath while laying in bed at time of assessment. Denies nausea/vomiting/diarrhea. Endorses loss of smell/taste. Review of Systems Review of Systems: All systems reviewed & are unremarkable except as noted in Subjective Physical Exam Physical Exam: General: A&Ox3. Sleeping but arouses easily. Appears fatigued. Vision and hearing grossly intact. HEENT: Atraumatic, normocephalic. Pulm: Symmetrical chest rise with moderate air movement. Diffuse expiratory wheezing worsened with forced expiration, no rales or respiratory distress. Scattered Cardiac: RRR, -mrg. Radial pulses intact and symmetrical. Abdominal: Nontender, nondistended, soft. BS present. Extremities: Warm, dry, atraumatic Results & Data Results & Data ([facility]) Vital Signs (Past 12 Hours) Vital Signs Temp Pulse Pulse Resp BP BP Pulse Ox 10/31/21 11:56 36.7 C 71 19 121/59 L 97 10/31/21 10:43 64 20 96 10/31/21 10:16 84 10/31/21 07:37 36.9 C 84 21 170/94 H 94 10/31/21 07:17 82 22 92 10/31/21 03:07 36.5 C 72 16 136/73 97 10/31/21 01:43 78 25 H 93 PG Care Time/CCT Total # of Minutes Spent Total Time Spent with Patient: Total time spent is greater than 50% in coordination of care (as documented) at patient's floor/unit and/or counseling patient: Coding Level of Care Code 22327 Subseq Hosp Care Lvl 3 Diagnoses Acute and chronic respiratory failure with hypoxia J96.21 Pneumonia due to COVID-19 virus U07.1; J12.82 COPD with exacerbation J44.1 Hypertension I10 Pancytopenia D61.818 Chronic kidney disease, stage 3a N18.31 DVT prophylaxis Z29.9
[2021-10-31] MEDS: AZITHROMYCIN 250 MG TAB PO SCH (14:20)
[2021-10-31] MEDS: SENNA 8.6 MG TAB PO SCH (20:59)
[2021-11-01] MEDS: ALBUT/IPRATROP 3MG/0.5MG NEB 3 ML VIAL NEB SCH ×5 (03:20→19:00)
[2021-11-01] MEDS: ENOXAPARIN INJ 40 MG/0.4 ML SYR SQ SCH ×2 (06:39→18:45)
[2021-11-01] MEDS: SIMETHICONE 80 MG CHEW PO PRN ×2 (06:39→23:32)
[2021-11-01] MEDS: INSULIN ASPART PER UNIT SC SCH ×4 (07:57→20:24)
[2021-11-01] MEDS: LORATADINE 10 MG TAB PO SCH (09:32)
[2021-11-01] MEDS: PANTOprazole 40 MG TAB PO SCH (09:32)
[2021-11-01] MEDS: PRAVASTATIN SOD 40 MG TAB PO SCH (09:32)
[2021-11-01] MEDS: guaiFENesin 600 MG TABCR PO SCH ×2 (09:33→20:36)
[2021-11-01] MEDS: AZITHROMYCIN 250 MG TAB PO SCH (09:33)
[2021-11-01] MEDS: carvediloL 6.25 MG TAB PO SCH ×2 (09:33→20:36)
[2021-11-01] MEDS: FOLIC ACID 400 MCG TAB PO SCH (09:33)
[2021-11-01] MEDS: ASPIRIN 81 MG ECTAB PO SCH (09:33)
[2021-11-01] MEDS: MUPIROCIN 2% OINT 22 GM TUBE INTNAS SCH ×2 (09:34→20:36)
[2021-11-01] MEDS: UMECLIDINIUM/VILANTEROL 62.5/25MCG 7 PUFFS/INHALER INH SCH (09:34)
[2021-11-01] MEDS: traMADol HCL 50 MG TABLET PO PRN (09:46)
[2021-11-01] MEDS: DOCUSATE SODIUM 100 MG CAP PO SCH ×2 (09:46→20:36)
[2021-11-01] MEDS: dexAMETHasone 6 MG in SYRINGE 0 ML IV SCH (12:30)
[2021-11-01] MEDS: REMDESIVIR 100 MG in SODIUM CHLORIDE 0.9% 230 ML IV SCH (12:31)
--- NOTE | 2021-11-01 14:30 | Hospitalist Progress Note ---
Date of Service November 01, 2021 Assessment & Plan (1) Acute and chronic respiratory failure with hypoxia: Plan: 2/ COVID-19 pneumonia plus/minus superimposed COPD Patient with home oxygen requirement of up to 6 L of oxygen, requiring intermittently 8 L during admission and with ambulation Patient down to six at rest but desats easily with fatigue and continued wheezing We will continue/complete Covid treatment as below. Patient appears at her ne ar baseline requirements at rest, but has quick desaturations down to the high 70s/low 80s and is high risk for worsening Covid. Steroids as below. If she remains stable from a respiratory standpoint can consider follow-up at home when she is able to ambulate with reasonable recovery and hypoxia.We will complete remdesivir and treat as otherwise noted (2) Pneumonia due to COVID-19 virus: Plan: Continue dexamethasone, twice daily dosing for superimposed COPD exacerbation. We will continue twice daily dosing for 5 days then decrease to daily. Continue remdesivir, 5-day course complete 11/02/2021 Continue flutter valve and incentive spirometry Continue Mucinex twice daily Continue albuterol/Atrovent nebulizers (3) COPD with exacerbation: Plan: Dexamethasone as noted above Inhalers as above Nebulizers as noted Titrate oxygen to greater than 88-90% Continue flutter valve incentive spirometry Patient has had a negative pro-[place] on admission Continue azithromycin 3-day course. Prior to rx QTc <400 (4) Hypertension: Plan: -cont coreg -BPs improved (5) Pancytopenia: Plan: -suspect 2/2 viral suppression. -improved -platelets stable -daily CBC - h/o low folate, continue folate daily (6) Chronic kidney disease, stage 3a: Plan: -baseline CrCL high 40s -bmp am (7) DVT prophylaxis: Plan: lovenox 40mg bid Plan: PT/OT: Recommend return home when medical stable Admission and Anticipated Discharge Date Admission Date: October 29, 2021 Subjective Regulo seen at the bedside today. She is tired, and reports she would like to go to sleep and is not getting back up to the chair today. Reports that she will do things on her own pace and when she is ready. Denies shortness of breath, difficulty breathing at time of bedside assessment. Denies fever, chills, sweats, nausea, vomiting. She does report extreme fatigue and more desaturation than normal while ambulating and getting between bed in the chair. Review of Systems Review of Systems: All systems reviewed & are unremarkable except as noted in Subjective Physical Exam Physical Exam: General: A&Ox3. Sleeping but arouses easily. Appears fatigued. Vision and hearing grossly intact. HEENT: Atraumatic, normocephalic. Pulm: Symmetrical chest rise with moderate air movement. Diffuse expiratory wheezing worsened with forced expiration, no rales or respiratory distress. Scattered Cardiac: RRR, -mrg. Radial pulses intact and symmetrical. Abdominal: Nontender, nondistended, soft. BS present. Extremities: Warm, dry, atraumatic Results & Data Results & Data ([facility]) Vital Signs (Past 12 Hours) Vital Signs Temp Pulse Pulse Resp BP Pulse Ox 11/01/21 11:02 36.6 C 80 18 114/56 L 92 11/01/21 10:28 97 H 23 11/01/21 08:00 79 11/01/21 07:37 36.7 C 78 20 153/73 H 94 11/01/21 07:33 80 23 94 11/01/21 04:19 36.7 C 72 19 135/69 95 11/01/21 03:20 81 24 96 PG Care Time/CCT Total # of Minutes Spent Total Time Spent with Patient: Total time spent is greater than 50% in coordination of care (as documented) at patient's floor/unit and/or counseling patient: Coding Level of Care Code 62341 Subseq Hosp Care Lvl 2 Diagnoses Acute and chronic respiratory failure with hypoxia J96.21 Pneumonia due to COVID-19 virus U07.1; J12.82 COPD with exacerbation J44.1 Hypertension I10 Pancytopenia D61.818 Chronic kidney disease, stage 3a N18.31 DVT prophylaxis Z29.9
[2021-11-01] MEDS: SENNA 8.6 MG TAB PO SCH (20:37)
[2021-11-02] MEDS: ALBUT/IPRATROP 3MG/0.5MG NEB 3 ML VIAL NEB SCH ×6 (01:14→22:39)
[2021-11-02] MEDS: SIMETHICONE 80 MG CHEW PO PRN ×2 (04:49→21:08)
[2021-11-02 06:41] LABS: Hematocrit (blood only) 33.4 % (37-47); Hemoglobin 10.7 g/dL (12.0-16.0); Immature Granulocytes # (auto) 0.01 K/uL (0.00-0.02); Immature Granulocytes % (auto) 0.4 %; Lymphocytes # (auto) 0.73 K/uL (1.2-3.4); Lymphocytes % (auto) 31.5 %; Mean Corpuscular Volume 87.4 fL (80-100); Mean Platelet Volume 10.3 fL (7.4-10.4); Monocytes # (auto) 0.21 K/uL (0.11-0.59); Monocytes % (auto) 9.1 %; Neutrophils # (auto) 1.37 K/uL (1.4-6.5); Platelet Count 132 K/uL (130-400); RDW Coefficient of Variation 13.7 % (11.5-14.5); RDW Standard Deviation 43.8 fL (36.4-46.3); Red Blood Count 3.82 M/uL (4.2-5.4); White Blood Count 2.32 K/uL (4.8-10.8)
[2021-11-02 07:06] LABS: Albumin Globulin Ratio 1.1 (0.9-2); Albumin Level 2.9 gm/dl (3.4-5.0); BUN Creatinine Ratio 37.9 (10-20); Bilirubin,Total 0.2 mg/dl (0.2-1.0); Calcium 8.8 mg/dl (8.5-10.1); Creatinine Clr Calc Pharmacy 49.9 ml/min; Est GFR (African American) 65.6 ml/min; Est GFR (Non-African American) 56.6 ml/min; Globulin 2.7 gm/dl (2.5-4.0); Potassium 3.2 mmol/L (3.5-5.1); Total Protein 5.6 gm/dl (6.0-8.3)
[2021-11-02] MEDS: PRAVASTATIN SOD 40 MG TAB PO SCH (08:40)
[2021-11-02] MEDS: UMECLIDINIUM/VILANTEROL 62.5/25MCG 7 PUFFS/INHALER INH SCH (08:40)
[2021-11-02] MEDS: ENOXAPARIN INJ 40 MG/0.4 ML SYR SQ SCH ×2 (08:40→20:54)
[2021-11-02] MEDS: PANTOprazole 40 MG TAB PO SCH (08:41)
[2021-11-02] MEDS: guaiFENesin 600 MG TABCR PO SCH ×2 (08:41→20:55)
[2021-11-02] MEDS: FOLIC ACID 400 MCG TAB PO SCH (08:42)
[2021-11-02] MEDS: dexAMETHasone 6 MG in SYRINGE 0 ML IV SCH (08:42)
[2021-11-02] MEDS: carvediloL 6.25 MG TAB PO SCH ×2 (08:42→20:54)
[2021-11-02] MEDS: AZITHROMYCIN 250 MG TAB PO SCH (08:42)
[2021-11-02] MEDS: ASPIRIN 81 MG ECTAB PO SCH (08:43)
[2021-11-02] MEDS: ACETAMINOPHEN 325 MG TAB PO PRN (08:45)
[2021-11-02] MEDS: DOCUSATE SODIUM 100 MG CAP PO SCH ×2 (08:46→21:20)
[2021-11-02] MEDS: POTASSIUM CHLORIDE CRTAB 20 MEQ TABCR PO SCH ×4 (08:46→21:21)
[2021-11-02] MEDS: MUPIROCIN 2% OINT 22 GM TUBE INTNAS SCH ×2 (08:51→20:55)
[2021-11-02] MEDS: INSULIN ASPART PER UNIT SC SCH ×4 (08:52→22:05)
[2021-11-02] MEDS: LORATADINE 10 MG TAB PO SCH (11:54)
--- NOTE | 2021-11-02 13:06 | XRay Report ---
XR chest 1V portable HISTORY: 65 years-old Female serial exam follow-up study in a patient with cough and right basilar o pacities COMPARISON: Chest radiograph 10/27/2021, CT chest 10/29/2020 TECHNIQUE: Portable AP view the chest FINDINGS: Cardiac silhouette is enlarged. Calcified plaque of the thoracic aorta. No pneumothorax. Unchanged bl unting of the right costophrenic angle with right basilar opacities. Emphysema with chronic interstit ial coarsening. Degenerative changes of the shoulders and spine. IMPRESSION: 1. Chronic blunting of the right costophrenic angle with persistent right basilar opacities suspiciou s for pneumonitis. Recommend clinical correlation to exclude aspiration pneumonitis. 2. Emphysema with chronic interstitial coarsening. ACT 112: Negative or not required by law. The above report was generated using voice recognition software. It may contain grammatical, syntax o r spelling errors. Electronically signed by: Bal Wells M.D. 11/02/2021 1:05 PM
--- NOTE | 2021-11-02 15:36 | Hospitalist Progress Note ---
Date of Service November 02, 2021 Assessment & Plan (1) Acute and chronic respiratory failure with hypoxia: Plan: 2/2 COVID-19 pneumonia plus/minus superimposed COPD Patient with home oxygen requirement of up to 6 L of oxygen, requiring intermittently 8 L during admission and with ambulation Patient down to six at rest but desats easily with fatigue and continued wheezing We will continue/complete Covid treatment as below. Patient appears at her near baseline requirements at rest, but has quick desaturations down to the high 70s/low 80s. Continues to have desaturations with exertion/movement in bed 11/02 - High risk for worsening Covid. Steroids as below. If she remains stable from a respiratory standpoint can consider follow-up at home when she is able to ambulate with reasonable recovery and hypoxia. - Remdesivir as noted (2) Pneumonia due to COVID-19 virus: Plan: Continue dexamethasone, daily, for 5 additional days Continue remdesivir, 5-day course complete 11/02/2021 Continue flutter valve and incentive spirometry Continue Mucinex twice daily Continue albuterol/Atrovent nebulizers (3) COPD with exacerbation: Plan: Dexamethasone as noted above Inhalers as above Nebulizers as noted Titrate oxygen to greater than 88-90% Continue flutter valve incentive spirometry Patient has had a negative pro-[place] on admission Completed azithromycin 3-day course. Prior to rx QTc <400 (4) Hypertension: Plan: -cont coreg -BPs improved (5) Pancytopenia: Plan: -suspect 2/2 viral suppression. -improved -platelets stable -daily CBC - h/o low folate, continue folate daily (6) Chronic kidney disease, stage 3a: Plan: -baseline CrCL high 40s -bmp am (7) DVT prophylaxis: Plan: lovenox 40mg bid Plan: PT/OT: Recommend return home when medical stable. Patient progressing desaturations improved, suspect will be medically ready for discharge within the next 24 hours Admission and Anticipated Discharge Date Admission Date: October 29, 2021 Subjective Somewhat improved today. Patient feels strength is a little better, but still very tired and has difficulty getting up in the chair. Feels she is more tired with exertion and needs more oxygen when moving, but baseline requirement remains at 6. No fever, chills, sweats. Does endorse sinus tenderness/light bleeding with nasal cannula oxygen. Denies fever, chills. No vomiting/diarrhea/constipation. Review of Systems 2 Review of Systems: All systems reviewed & are unremarkable except as noted in Subjective Physical Exam Physical Exam: General: A&Ox3. Sleeping but arouses easily. Appears fatigued. Vision and hearing grossly intact. HEENT: Atraumatic, normocephalic. Pulm: Symmetrical chest rise with moderate air movement. Diffuse expiratory wheezing worsened with forced expiration, no rales or respiratory distress. Scattered Cardiac: RRR, -mrg. Radial pulses intact and symmetrical. Abdominal: Nontender, nondistended, soft. BS present. Extremities: Warm, dry, atraumatic Results & Data Results & Data ([facility]) Vital Signs (Past 12 Hours) Vital Signs Temp Pulse Pulse Resp BP Pulse Ox 11/02/21 15:21 71 20 99 11/02/21 11:23 36.8 C 70 16 133/52 L 97 11/02/21 10:31 67 20 98 11/02/21 07:55 80 11/02/21 07:21 77 20 97 11/02/21 07:10 36.5 C 86 22 159/87 H 97 11/02/21 04:40 36.5 C 85 22 172/66 H 94 PG Care Time/CCT Total # of Minutes Spent Total Time Spent with Patient: Total time spent is greater than 50% in coordination of care (as documented) at patient's floor/unit and/or counseling patient: Coding Level of Care Code 84258 Subseq Hosp Care Lvl 1 Diagnoses Acute and chronic respiratory failure with hypoxia J96.21 Pneumonia due to COVID-19 virus U07.1; J12.82 COPD with exacerbation J44.1 Hypertension I10 Pancytopenia D61.818 Chronic kidney disease, stage 3a N18.31 DVT prophylaxis Z29.9
[2021-11-02] MEDS: SENNA 8.6 MG TAB PO SCH (20:54)
[2021-11-02] MEDS: traMADol HCL 50 MG TABLET PO PRN (21:08)
[2021-11-03] MEDS: ALBUT/IPRATROP 3MG/0.5MG NEB 3 ML VIAL NEB SCH ×4 (03:49→14:20)
[2021-11-03 07:06] LABS: Hematocrit (blood only) 32.9 % (37-47); Hemoglobin 10.7 g/dL (12.0-16.0); Immature Granulocytes # (auto) 0.01 K/uL (0.00-0.02); Immature Granulocytes % (auto) 0.2 %; Lymphocytes # (auto) 1.19 K/uL (1.2-3.4); Lymphocytes % (auto) 25.4 %; Mean Corpuscular Hemoglobin 28.1 pg (25-34); Mean Corpuscular Hgb Conc 32.5 g/dL (32-36); Mean Corpuscular Volume 86.4 fL (80-100); Mean Platelet Volume 9.5 fL (7.4-10.4); Monocytes # (auto) 0.46 K/uL (0.11-0.59); Monocytes % (auto) 9.8 %; Neutrophils # (auto) 3.03 K/uL (1.4-6.5); Neutrophils % (auto) 64.6 %; Platelet Count 174 K/uL (130-400); RDW Coefficient of Variation 13.6 % (11.5-14.5); Red Blood Count 3.81 M/uL (4.2-5.4); White Blood Count 4.69 K/uL (4.8-10.8)
[2021-11-03 07:30] LABS: Albumin Globulin Ratio 1.2 (0.9-2); Albumin Level 2.9 gm/dl (3.4-5.0); BUN Creatinine Ratio 37.9 (10-20); Bilirubin,Total 0.2 mg/dl (0.2-1.0); Calcium 8.7 mg/dl (8.5-10.1); Creatinine Clr Calc Pharmacy 52.9 ml/min; Est GFR (African American) 72.3 ml/min; Est GFR (Non-African American) 62.4 ml/min; Globulin 2.5 gm/dl (2.5-4.0); Potassium 3.2 mmol/L (3.5-5.1); Total Protein 5.4 gm/dl (6.0-8.3)
--- NOTE | 2021-11-03 07:34 | Discharge Summary ---
Date of Service November 03, 2021 Admission HPI Per Admitting Provider 65yo female with COPD, ROZ, Obesity hypoventilation and HTN presenting with SOB. Covid-19 POSITIVE. She is not vaccinated against Covid-19. She reports one week of cough, SOB as well as weakness, fatigue and poor appetite. She has multiple family members that are ill with Covid. On 6L of O2 at baseline Saturations adequate ER Course: Dexamethasone 6mg IV Principal Diagnosis Acute on chronic respiratory failure, suspect COPD exacerbation versus post Covid hypoxia Discharge Exam General: A&Ox3. Answers questions appropriately appears fatigued. HEENT: Atraumatic, normocephalic. Visual acuity and hearing grossly intact Pulm: Minimal scattered wheezing on forced expiration, otherwise moderate air movement with no rales/rhonchi no rales or respiratory distress. Scattered Cardiac: RRR, -mrg. Radial pulses intact and symmetrical. Abdominal: Nontender, nondistended, soft. BS present. Extremities: Warm, dry, atraumatic Discharge Data Allergies Allergy/AdvReac Type Severity Reaction Status Date / Time codeine AdvReac Mild SHAKING Verified 10/27/21 21:18 oxycodone AdvReac Unknown rash/shakes Verified 10/27/21 21:18 Consultations 10/27/21 21:49 ED Decision to Admit Stat Hospital Course (1) Acute and chronic respiratory failure with hypoxia: Sheri is a 65-year-old female with a past medical history of COPD with chronic respiratory failure and home oxygen requirements of 6 L who presented with Covid and COPD exacerbation. To do as outpatient: 1. Routine follow-up with PCP, continued monitoring of Covid progression for late phase worsening 2. Completion of 10-day course of dexamethasone, to be continued until 11/07/2021 2/2 COVID-19 pneumonia plus/minus superimposed COPD Patient with home oxygen requirement of up to 6 L of oxygen, requiring intermittently 8 L during admission and with ambulation Patient down to six at rest but desats easily with fatigue and continued wheezing and was monitored for additional improvement 2/2 ambulatory and rest oxygen requirements had returned to normal. Given patient's high risk two-step was performed, she maintained oxygen saturations greater than 90% at rest and with exertion on her home oxygen requirement of 6 L. She was discharged to complete a 10-day course of dexamethasone with close follow-up to PCP and return precautions (2) Pneumonia due to COVID-19 virus: Continue dexamethasone, daily, 10/29-11/07/21 Remdesivir 5-day course complete 11/02/2021 Continue flutter valve and incentive spirometry Continue Mucinex twice daily Continue albuterol/Atrovent nebulizers (3) COPD with exacerbation: Dexamethasone as noted above Inhalers as above Nebulizers as noted Titrated oxygen to greater than 88-90% Continue flutter valve incentive spirometry Patient has had a negative pro-[place] on admission Completed azithromycin 3-day course Prior to rx QTc <400 (4) Hypertension: -cont coreg -BPs improved (5) Pancytopenia: -suspect 2/2 viral suppression. -improved -platelets stable -daily CBC - h/o low folate, continue folate daily (6) Chronic kidney disease, stage 3a: -baseline CrCL high 40s -bmp am (7) DVT prophylaxis: lovenox 40mg bid during admission, no signs of PE/DVT PT/OT: Recommended return home when medical stable. Patient progressed home oxygen requirements and was discharged home Total Time Total Time Spent Total Time Spent (In Minutes): Time spend day of discharge 35 minutes including direct patient care, documentation, review of labs and images, and coordination of care. Discharge Plan Discharge Items Patient Disposition: Home - Self-Care Reason For Visit: SOB, COVID-19+ Discharge Diagnosis: Post Covid shortness of breath Activity: Per Instructions section Non-emergency contact: Primary Care Provider Call non-emergency contact if: you have any medication questions, your symptoms worsen and you have a fever Follow-up/Referrals: Beatriz Baker, [Primary Care Provider] - Diet: Regular Addtl Attending Provider Instructions: You are seen in the hospital for acute hypoxic respiratory failure, following Covid with concern for possible COPD exacerbation. You were treated with remdesivir, and anti-Covid medication, for 5 days and steroids (dexamethasone). You also received antibiotics (azithromycin) for COPD. You did gradually clinically improved, and were at your baseline oxygen requirements on day of discharge. You have been discharged to continue 4 additional days of steroid treatment with dexamethasone. Please take dexamethasone 6 mg daily for 4 additional days. Some patients have worsened oxygen requirements for several weeks following Covid, and some patients can have delayed worsening after Covid. You had a oxygen requirement eval day of discharge; your oxygen requirements at rest returned to normal, you did have some decrease with exertion but remained above 90% on your home oxygen requirements. You were discharged home with home health PT follow-up, if you experience any worsening in breathing, difficulty breathing, or other new or concerning symptoms including those as listed below p lease seek reevaluation immediately. A follow-up appointment is being scheduled for you with your primary care physician Dr. Baker. You should be seen within 1 week. If you do not receive a call to confirm this appointment within 48 hours, or need to change this appointment, please call her office at the number above. If you develop any new or worsening symptoms including fever, chills, sweats, chest pain, chest pressure, difficulty breathing, uncontrolled nausea/vomiting, rash, wheezing, passing out or nearly passing out, bleeding, black/bloody bowel movements, or other new or concerning symptoms please call your primary care physician, or call 911 for re-evaluation in the emergency department if you are very concerned. Pending Studies at Discharge: No Stand-Alone Forms: My [facility], Smoking Cessation Medications and DC Order Prescriptions: New dexamethasone 6 mg tablet 6 mg PO DAILY Qty: 4 RF: 0 Continued Bevespi Aerosphere 9-4.8 mcg HFA aerosol inhaler 2 puff INHALATION BID Qty: 10.7 RF: 5 loratadine [Claritin] 10 mg tablet 10 mg PO DAILY Qty: 30 RF: 5 ipratropium bromide 0.02 % solution 2.5 ml INHALATION QID Qty: 187.5 RF: 3 albuterol sulfate [Ventolin HFA] 90 mcg/actuation HFA aerosol inhaler 2 inh INH QID PRN (Reason: Wheezing) Qty: 8.5 RF: 5 budesonide 0.5 mg/2 mL suspension for nebulization 0.5 mg inhalation BID Qty: 120 RF: 5 albuterol sulfate 2.5 mg /3 mL (0.083 %) solution for nebulization 2.5 mg inhalation Q4H PRN (Reason: wheezing) Qty: 300 RF: 5 pantoprazole 40 mg tablet,delayed release (DR/EC) 40 mg PO DAILY Qty: 90 RF: 1 metformin 1,000 mg tablet 1,000 mg PO BID Qty: 180 RF: 2 pravastatin 80 mg tablet 80 mg PO DAILY Qty: 90 RF: 1 tramadol 50 mg tablet 50 mg PO TID PRN (Reason: Pain) Qty: 90 RF: 0 fluticasone propionate [Flonase Allergy Relief] 50 mcg/actuation spray,milan pension 2 spray intranasal DAILY PRN (Reason: allergy symptoms) Qty: 15.8 RF: 3 docusate sodium 100 mg capsule 100 mg PO BID Qty: 180 RF: 1 baclofen 10 mg tablet 10 mg PO TID PRN (Reason: muscle spasm) Qty: 90 RF: 1 aspirin 81 mg tablet,delayed release (DR/EC) 81 mg PO DAILY RF: 0 carvedilol 6.25 mg Tablet 6.25 mg PO BID Qty: 30 RF: 0 folic acid 400 mcg Tablet 400 mcg PO QAM Qty: 30 RF: 0 polyethylene glycol 3350 [Miralax] 17 gram/dose Powder 17 g PO DAILY PRN (Reason: Constipation) RF: 0 simethicone 80 mg Tablet,Chewable 80 mg PO DIRECTED PRN (Reason: BLOATING/GAS RELIEF) RF: 0 sennosides 8.6 mg tablet 8.6 - 17.2 mg PO HS RF: 0 miconazole nitrate 2 % aerosol powder 1 spray topical BID PRN (Reason: NEEDED.) RF: 0 Discharge Orders: Discharge Order (Routine); Ordered 11/03/21 Ordered By: Chadwick Irving Admission Data Admit Date/Time: 10/29/21 15:58 Attending Provider: Chadwick Irving Admit Provider: Thania Berumen Primary Care Provider: Beatriz Baker. Other Providers: Thania Berumen ; [place] Coding Level of Care Code D/C DAY MANAGEMENT >30 MINS Diagnoses Acute and chronic respiratory failure with hypoxia J96.21 Pneumonia due to COVID-19 virus U07.1; J12.82 COPD with exacerbation J44.1 Hypertension I10 Pancytopenia D61.818 Chronic kidney disease, stage 3a N18.31 DVT prophylaxis Z29.9
[2021-11-03] MEDS: ENOXAPARIN INJ 40 MG/0.4 ML SYR SQ SCH (08:22)
[2021-11-03] MEDS: ASPIRIN 81 MG ECTAB PO SCH (08:23)
[2021-11-03] MEDS: carvediloL 6.25 MG TAB PO SCH (08:24)
[2021-11-03] MEDS: INSULIN ASPART PER UNIT SC SCH ×2 (08:24→12:53)
[2021-11-03] MEDS: FOLIC ACID 400 MCG TAB PO SCH (08:25)
[2021-11-03] MEDS: guaiFENesin 600 MG TABCR PO SCH (08:26)
[2021-11-03] MEDS: MUPIROCIN 2% OINT 22 GM TUBE INTNAS SCH (08:27)
[2021-11-03] MEDS: LORATADINE 10 MG TAB PO SCH (08:27)
[2021-11-03] MEDS: PANTOprazole 40 MG TAB PO SCH (08:28)
[2021-11-03] MEDS: PRAVASTATIN SOD 40 MG TAB PO SCH (08:28)
[2021-11-03] MEDS: UMECLIDINIUM/VILANTEROL 62.5/25MCG 7 PUFFS/INHALER INH SCH (08:29)
[2021-11-03] MEDS: DOCUSATE SODIUM 100 MG CAP PO SCH (08:32)
[2021-11-03] MEDS: dexAMETHasone 6 MG in SYRINGE 0 ML IV SCH (08:33)
[2021-11-03] MEDS: traMADol HCL 50 MG TABLET PO PRN (08:36)
== END 2021-11-03 17:40 | disposition home health service (06) | DRG 177 ==
LOC: ED 19:31 → EDINP 19:31 → SUATTDRO 23:34 → EDINP 10-28 02:00 → 2E 10-28 19:24 → SUATTDRO 10-29 15:58

== ENCOUNTER 2022-02-20 12:15 | Inpatient (IN) ==
[~2022-02-20 12:15] MED LIST changes: -ALBINS NEB; -ATRINSX INH; -BUDE0.5S NEB; -DOCU100C31 PO; -ERGO500011 PO; -FRS/40 PO; -KFL500 PO; +LORazepam 2 MG/1 ML VIAL ONE; -MCTP EXT; -OMEP40CA41 PO; -OXGN; -POLY335040 PO; -PRD10 PO; +RAPID SEQUENCE INDUCTION BAG ONE; -RBX750 PO; -UTIBRON PO; -VNTHFA/IN INH
[2022-02-20] MEDS ORDERED: LORazepam 2 MG/1 ML VIAL IV STA (12:41)
[2022-02-20] MEDS ORDERED: LORazepam 2 MG/1 ML VIAL ONE (12:42)
--- NOTE | 2022-02-20 12:45 | Emergency Department Note ---
Impression & Plan Seizure, Respiratory failure, Fever, AMS (altered mental status) ED Provider Note NAME: JASON MORILLO AGE: 66 SEX: F : 1955 ARRIVES VIA: Ambulance INFORMANT: Patient's family, EMS ED PROVIDER(S): Elías Stevens DO CHIEF COMPLAINT: Altered mental status HPI: The patient is a 66-year-old female who presented to the emergency department by ambulance for an evaluation of altered mental status and seizure. The patient was last seen well this morning by her family. The patient was on the couch sleeping when the family came home they found her having a generalized seizure. 911 was called. She was evaluated. She was not awake or alert. She was not making sense when she was evaluated by the prehospital personnel. She also had another generalized seizure prior to arrival. The prehospital personnel were unable to get an IV in the patient. For this reason an interosseous line was placed in the left lower extremity. She received Ativan. She arrived to the emergency department still confused. She only repeats phrases over and over and has unintelligible speech. On reevaluation she does seem to state that she cannot breathe but she offers no other complaints or follows commands well. The patient did receive Narcan prior to arrival. ROS: See above HPI for pertinent positives & negatives. A total of 10 systems reviewed and were otherwise negative. PAST MEDICAL HISTORY: See Below PAST SURGICAL HISTORY: See Below FAMILY HISTORY: See Below SOCIAL HISTORY: See Below HOME MEDICATIONS: See Below ALLERGIES: See Below VITALS: See Below PHYSICAL EXAMINATION: GENERAL: The patient is awake and looking around the room but does not follow commands or appear to make sense. EYES: The conjunctivae are clear. The pupils are dilated and minimally reactive bilaterally. EARS, NOSE, MOUTH AND THROAT: The nose is without any evidence of any deformity. Mucous membranes are moist. Tongue is midline. NECK: The neck is nontender and supple. RESPIRATORY: Diminished breath sounds are noted in the right lung field. There was significant tachypnea. CARDIOVASCULAR: Tachycardic and regular heart sounds are noted auscultation. GASTROINTESTINAL: The abdomen is soft. Abdomen is nontender. MUSCULOSKELETAL/EXTREMITIES: There is no evidence of gross deformity full range of motion is noted in the hips and shoulders. SKIN: Skin was warm and dry. Trace pedal edema was noted bilaterally. NEUROLOGIC: Patient is awake and moving all extremities. She does not follow commands. I am unable to assess orientation at this time MEDICAL DECISION MAKING: Patient is a 66-year-old female who presented to emergency department after having a seizure. The patient also was found to have respiratory acidosis and respiratory failure. She was placed on BiPAP. She was reevaluated multiple times. A septic work-up was undertaken. The patient was treated with IV antibiotics. I discussed the patient's laboratory and radiographic studies with the [facility] group. They have agreed to evaluate the patient in the emergency department for further management and disposition. Triage Nursing notes reviewed. Prior medical records reviewed Vital Signs: reviewed and remarkable for fever and tachycardia. Differential diagnosis: Epilepsy, infection, hypoglycemia, electrolyte abnormalities, cardiac sources, intracerebral event, trauma, toxicologic, neurologic, syncope, as well as other pathologies. ER treatment provided: See below Diagnostics interpreted by me: ECG: EKG was obtained in the emergency department. My interpretation is sinus tachycardia 134 bpm. There is no ectopy. There is no acute ST segment abnor malities noted. This was compared to a tracing from October 07, 2021. There is an increase in the rate otherwise no changes were noted. Cardiac Monitoring: An order was placed for continuous cardiac monitoring. The monitor shows a rate of 95 bpm with sinus rhythm. Laboratory studies: As stated above and show below. Imaging studies: See below Consultation(s): I discussed this case with Nam who is on-call for the [facility] group. ED COURSE: Procedures: none Critical Care: I have personally spent greater than 45 minutes of critical care time in the direct management of this patient. This includes bedside care, interpretation of diagnostic studies, and testing, discussion with consultants, patient, and family members, and other required patient management activities. This 45 minutes is in excess of all separately billable procedures. Past Med/Surg History Medical History Acute and chronic respiratory failure with hypoxia (10/2021) Anemia Chronic back pain Chronic respiratory failure Chronic venous insufficiency Colonic dysmotility COVID-19 Hypercapnic respiratory failure Hypertension Ileus Lymphedema Osteoporosis Pulmonary nodules Vitamin D deficiency Surgical History History of cholecystectomy Hx of umbilical hernia repair Family History Sister Colorectal cancer Breast cancer Denies family history of Ovarian cancer Prostate cancer Myocardial infarction Social History Smoking Status: Unknown if ever smoked Tobacco Type: Cigarettes Age Started Using Tobacco: 17; Age Quit Using Tobacco: 49; packs per day: 2; Cigarettes Per Day: 2 ppd quit 15 yrs ago; Second Hand Exposure: No; Hx Alcohol Use: No Hx Substance Use: No Preferred Language: [place] Visual Impairment: Limited Hearing Ability: Normal Oncology Transplant Network Manager Required: No Beliefs That Will Affect Care: None marital status: Current Living Situation: Family Current Living Situation Comment: Lives with son current occupational status: retired Feels Safe at Home: Yes Childhood Exposure to Second-Hand Smoke: No caffeine: Yes (coffee x 1 per day Iced tea x 1 glass per day.) during the past year weight has: remained stable Dental Care, Regularly: No Physical Activity Frequency: Does not Exercise Seatbelt Use: never Sunscreen Use: No Assistive Devices: Oxygen - Continuous and Walker Allergies Allergies Allergy/AdvReac Type Severity Reaction Status Date / Time codeine AdvReac Mild SHAKING Verified 01/07/22 13:18 oxycodone AdvReac Unknown rash/shakes Verified 01/07/22 13:18 Home Meds Home Medications Medication Instructions Recorded Confirmed aspirin 81 mg tablet,delayed 81 mg PO DAILY 12/01/20 01/07/22 release miconazole nitrate 2 % topical 1 spray TOPICAL BID PRN 10/27/21 01/07/22 spray powder polyethylene glycol 3350 17 17 g PO DAILY PRN 10/27/21 01/07/22 gram/dose oral powder (Miralax) sennosides 8.6 mg tablet 8.6 - 17.2 mg PO HS 10/27/21 01/07/22 simethicone 80 mg chewable tablet 80 mg PO DIRECTED PRN 10/27/21 01/07/22 Previous Rx's Medication Instructions Recorded carvedilol 6.25 mg tablet 6.25 mg PO BID #30 tab 11/06/20 folic acid 400 mcg tablet 400 mcg PO QAM #30 tab 11/06/20 metformin 1,000 mg tablet 1,000 mg PO BID #180 tab 09/27/21 pravastatin 80 mg tablet 80 mg PO DAILY #90 tab 09/30/21 docusate sodium 100 mg capsule 100 mg PO BID #180 cap 10/05/21 fluticasone propionate 50 2 spray INTRANASAL DAILY PRN #15.8 11/08/21 mcg/actuation nasal ml spray,suspension (Flonase Allergy Relief) ipratropium bromide 0.02 % 2.5 ml INHALATION QID #187.5 ml 11/18/21 solution for inhalation albuterol sulfate 2.5 mg INHALATION Q4H PRN #300 ml 12/03/21 budesonide 0.5 mg/2 mL suspension 0.5 mg INHALATION BID #120 ml 12/03/21 for nebulization pantoprazole 40 mg tablet,delayed 40 mg PO DAILY #90 tab 12/03/21 release glycopyrrolate 9 mcg-formoterol 2 puff INHALATION BID #10.7 g 12/06/21 4.8 mcg HFA aerosol inhaler (Bevespi Aerosphere) loratadine 10 mg tablet (Claritin) 10 mg PO DAILY #30 tab 12/29/21 tramadol 50 mg tablet 50 mg PO TID PRN #90 tab 01/17/22 albuterol sulfate 90 mcg/actuation 2 inh INH QID PRN #8.5 g 01/26/22 aerosol inhaler (Ventolin HFA) baclofen 10 mg tablet 10 mg PO TID PRN #90 tab 02/09/22 Results & Data (ED) Vital Signs Vital Signs - 24 hr 02/20/22 12:15 02/20/22 12:18 02/20/22 12:19 Temperature 38 C H Temperature Source Rectal Pulse Rate 151 H 150 H 151 H Pulse Rate from SpO2 Sensor 153 H Respiratory Rate 13 17 13 Respiratory Effort / Characteristics Non-Labored Spontaneous Respiratory Depth Normal Blood Pressure 192/156 H 192/156 H Blood Pressure Mean 168 168 Blood Pressure Position Semi-fowlers Pulse Oximetry 74 L 74 L Oxygen Delivery Method Nasal Cannula Nasal Cannula Oxygen Flow Rate 6 6 Fraction of Inspired Oxygen Sepsis New/Unexplained Change in Mental Status Yes Sepsis Action Taken by Nursing Physician Notified End-Tidal CO2 Oxygen Flow Rate - Titration Pulse Oximetry Post Tiitration 02/20/22 12:20 02/20/22 12:25 02/20/22 12:30 Temperature Temperature Source Pulse Rate 151 H 146 H 147 H Pulse Rate from SpO2 Sensor 151 H 146 H Respiratory Rate 22 18 23 Respiratory Effort / Characteristics Respiratory Depth Blood Pressure Blood Pressure Mean Blood Pressure Position Pulse Oximetry 71 L 95 Oxygen Delivery Method Nasal Cannula Oxymask Oxygen Flow Rate 6 15 Fraction of Inspired Oxygen Sepsis New/Unexplained Change in Mental Status Sepsis Action Taken by Nursing End-Tidal CO2 Oxygen Flow Rate - Titration 13 Pulse Oximetry Post Tiitration 94 02/20/22 12:35 02/20/22 12:40 02/20/22 12:45 Temperature Temperature Source Pulse Rate 149 H 146 H 145 H Pulse Rate from SpO2 Sensor 141 H Respiratory Rate 22 30 H 22 Respiratory Effort / Characteristics Respiratory Depth Blood Pressure Blood Pressure Mean Blood Pressure Position Pulse Oximetry 95 Oxygen Delivery Method Oxymask Oxygen Flow Rate 15 Fraction of Inspired Oxygen Sepsis New/Unexplained Change in Mental Status Sepsis Action Taken by Nursing End-Tidal CO2 Oxygen Flow Rate - Titration Pulse Oximetry Post Tiitration 02/20/22 12:50 02/20/22 13:00 02/20/22 13:01 Temperature Temperature Source Pulse Rate 135 H 133 H Pulse Rate from SpO2 Sensor 138 H Respiratory Rate 19 21 Respiratory Effort / Characteristics Respiratory Depth Blood Pressure 192/165 H Blood Pressure Mean 174 Blood Pressure Position Pulse Oximetry 93 74 L Oxygen Delivery Method Nasal Cannula Oxygen Flow Rate 6 Fraction of Inspired Oxygen Sepsis New/Unexplained Change in Mental Status Sepsis Action Taken by Nursing End-Tidal CO2 Oxygen Flow Rate - Titration Pulse Oximetry Post Tiitration 02/20/22 13:05 02/20/22 13:34 02/20/22 13:35 Temperature Temperature Source Pulse Rate 113 H 113 H Pulse Rate from SpO2 Sensor 133 H Respiratory Rate 29 H 18 22 Respiratory Effort / Characteristics Respiratory Depth Blood Pressure Blood Pressure Mean Blood Pressure Position Pulse Oximetry 94 Oxygen Delivery Method Oxymask Oxygen Flow Rate 15 Fraction of Inspired Oxygen Sepsis New/Unexplained Change in Mental Status Sepsis Action Taken by Nursing End-Tidal CO2 Oxygen Flow Rate - Titration Pulse Oximetry Post Tiitration 02/20/22 13:40 02/20/22 13:45 02/20/22 13:46 Temperature Temperature Source Pulse Rate 113 H 110 H 109 H Pulse Rate from SpO2 Sensor 114 H 108 H 109 H Respiratory Rate 19 16 18 Respiratory Effort / Characteristics Respiratory Depth Blood Pressure 177/108 H Blood Pressure Mean 131 Blood Pressure Position Pulse Oximetry 100 100 100 Oxygen Delivery Method Oxymask Oxymask Oxymask Oxygen Flow Rate 15 15 15 Fraction of Inspired Oxygen Sepsis New/Unexplained Change in Mental Status Sepsis Action Taken by Nursing End-Tidal CO2 Oxygen Flow Rate - Titration Pulse Oximetry Post Tiitration 02/20/22 13:50 02/20/22 13:55 02/20/22 14:00 Temperature Temperature Source Pulse Rate 108 H 109 H 109 H Pulse Rate from SpO2 Sensor 108 H 111 H 110 H Respiratory Rate 16 19 19 Respiratory Effort / Characteristics Respiratory Depth Blood Pressure Blood Pressure Mean Blood Pressure Position Pulse Oximetry 100 100 99 Oxygen Delivery Method Oxymask Oxymask Oxymask Oxygen Flow Rate 15 15 15 Fraction of Inspired Oxygen Sepsis New/Unexplained Change in Mental Status Sepsis Action Taken by Nursing End-Tidal CO2 Oxygen Flow Rate - Titration Pulse Oximetry Post Tiitration 02/20/22 14:01 02/20/22 14:05 02/20/22 14:06 Temperature Temperature Source Pulse Rate 109 H 105 H 107 H Pulse Rate from SpO2 Sensor 111 H 106 H 108 H Respiratory Rate 19 18 17 Respiratory Effort / Characteristics Respiratory Depth Blood Pressure 162/137 H Blood Pressure Mean 145 150 Blood Pressure Position Pulse Oximetry 100 99 96 Oxygen Delivery Method Oxymask Oxymask Oxymask Oxygen Flow Rate 15 15 15 Fraction of Inspired Oxygen Sepsis New/Unexplained Change in Mental Status Sepsis Action Taken by Nursing End-Tidal CO2 Oxygen Flow Rate - Titration Pulse Oximetry Post Tiitration 02/20/22 14:10 02/20/22 14:11 02/20/22 14:15 Temperature Temperature Source Pulse Rate 107 H 107 H 109 H Pulse Rate from SpO2 Sensor 108 H 107 H 108 H Respiratory Rate 15 26 H 18 Respiratory Effort / Characteristics Respiratory Depth Blood Pressure Blood Pressure Mean 163 Blood Pressure Position Pulse Oximetry 100 100 100 Oxygen Delivery Method Oxymask Oxymask Oxygen Flow Rate 15 15 Fraction of Inspired Oxygen Sepsis New/Unexplained Change in Mental Status Sepsis Action Taken by Nursing End-Tidal CO2 Oxygen Flow Rate - Titration Pulse Oximetry Post Tiitration 02/20/22 14:16 02/20/22 14:20 02/20/22 14:21 Temperature Temperature Source Pulse Rate 107 H 113 H 113 H Pulse Rate from SpO2 Sensor 109 H 114 H 114 H Respiratory Rate 14 24 23 Respiratory Effort / Characteristics Respiratory Depth Blood Pressure 91/68 L Blood Pressure Mean 154 75 Blood Pressure Position Pulse Oximetry 97 97 95 Oxygen Delivery Method Oxymask Oxygen Flow Rate 15 Fraction of Inspired Oxygen Sepsis New/Unexplained Change in Mental Status Sepsis Action Taken by Nursing End-Tidal CO2 Oxygen Flow Rate - Titration Pulse Oximetry Post Tiitration 02/20/22 14:25 02/20/22 14:29 02/20/22 14:30 Temperature Temperature Source Pulse Rate 126 H 107 H 107 H Pulse Rate from SpO2 Sensor 127 H 108 H 108 H Respiratory Rate 22 18 17 Respiratory Effort / Characteristics Respiratory Depth Blood Pressure 161/112 H Blood Pressure Mean 128 Blood Pressure Position Pulse Oximetry 98 99 100 Oxygen Delivery Method Oxygen Flow Rate Fraction of Inspired Oxygen Sepsis New/Unexplained Change in Mental Status Sepsis Action Taken by Nursing End-Tidal CO2 Oxygen Flow Rate - Titration Pulse Oximetry Post Tiitration 02/20/22 14:31 02/20/22 14:35 02/20/22 14:40 Temperature Temperature Source Pulse Rate 108 H 105 H 103 H Pulse Rate from SpO2 Sensor 108 H 104 H 103 H Respiratory Rate 17 14 13 Respiratory Effort / Characteristics Respiratory Depth Blood Pressure 145/106 H Blood Pressure Mean 119 Blood Pressure Position Pulse Oximetry 99 98 100 Oxygen Delivery Method Oxygen Flow Rate Fraction of Inspired Oxygen Sepsis New/Unexplained Change in Mental Status Sepsis Action Taken by Nursing End-Tidal CO2 Oxygen Flow Rate - Titration Pulse Oximetry Post Tiitration 02/20/22 14:45 02/20/22 14:46 02/20/22 14:50 Temperature Temperature Source Pulse Rate 105 H 108 H 105 H Pulse Rate from SpO2 Sensor 105 H 108 H 106 H Respiratory Rate 23 16 16 Respiratory Effort / Characteristics Respiratory Depth Blood Pressure Blood Pressure Mean 137 Blood Pressure Position Pulse Oximetry 100 99 98 Oxygen Delivery Method Oxygen Flow Rate Fraction of Inspired Oxygen Sepsis New/Unexplained Change in Mental Status Sepsis Action Taken by Nursing End-Tidal CO2 Oxygen Flow Rate - Titration Pulse Oximetry Post Tiitration 02/20/22 14:55 02/20/22 14:58 02/20/22 15:00 Temperature Temperature Source Pulse Rate 109 H 111 H 109 H Pulse Rate from SpO2 Sensor 109 H 109 H Respiratory Rate 14 17 16 Respiratory Effort / Characteristics Spontaneous Respiratory Depth Blood Pressure Blood Pressure Mean Blood Pressure Position Pulse Oximetry 100 100 97 Oxygen Delivery Method Oxygen Flow Rate Fraction of Inspired Oxygen 40 Sepsis New/Unexplained Change in Mental Status Sepsis Action Taken by Nursing End-Tidal CO2 Oxygen Flow Rate - Titration Pulse Oximetry Post Tiitration 02/20/22 15:05 02/20/22 15:10 02/20/22 15:15 Temperature Temperature Source Pulse Rate 111 H 115 H 127 H Pulse Rate from SpO2 Sensor 111 H 115 H 127 H Respiratory Rate 15 18 18 Respiratory Effort / Characteristics Respiratory Depth Blood Pressure Blood Pressure Mean Blood Pressure Position Pulse Oximetry 99 100 73 L Oxygen Delivery Method Oxygen Flow Rate Fraction of Inspired Oxygen Sepsis New/Unexplained Change in Mental Status Sepsis Action Taken by Nursing End-Tidal CO2 Oxygen Flow Rate - Titration Pulse Oximetry Post Tiitration 02/20/22 15:20 02/20/22 15:25 02/20/22 15:30 Temperature Temperature Source Pulse Rate 128 H 124 H 127 H Pulse Rate from SpO2 Sensor 128 H 125 H Respiratory Rate 14 12 12 Respiratory Effort / Characteristics Respiratory Depth Blood Pressure Blood Pressure Mean Blood Pressure Position Pulse Oximetry 100 100 Oxygen Delivery Method Oxygen Flow Rate Fraction of Inspired Oxygen Sepsis New/Unexplained Change in Mental Status Sepsis Action Taken by Nursing End-Tidal CO2 59 60 Oxygen Flow Rate - Titration Pulse Oximetry Post Tiitration 02/20/22 15:35 02/20/22 15:38 02/20/22 15:40 Temperature Temperature Source Pulse Rate 125 H 122 H 120 H Pulse Rate from SpO2 Sensor 123 H 120 H Respiratory Rate 12 12 13 Respiratory Effort / Characteristics Respiratory Depth Blood Pressure 137/86 Blood Pressure Mean 103 Blood Pressure Position Pulse Oximetry 100 100 Oxygen Delivery Method Oxygen Flow Rate Fraction of Inspired Oxygen Sepsis New/Unexplained Change in Mental Status Sepsis Action Taken by Nursing End-Tidal CO2 52 64 53 Oxygen Flow Rate - Titration Pulse Oximetry Post Tiitration 02/20/22 15:43 02/20/22 15:45 02/20/22 15:50 Temperature Temperature Source Pulse Rate 120 H 119 H 118 H Pulse Rate from SpO2 Sensor 120 H 119 H Respiratory Rate 18 18 18 Respiratory Effort / Characteristics Respiratory Depth Blood Pressure 116/68 Blood Pressure Mean 84 Blood Pressure Position Pulse Oximetry 100 100 100 Oxygen Delivery Method Oxygen Flow Rate Fraction of Inspired Oxygen 40 Sepsis New/Unexplained Change in Mental Status Sepsis Action Taken by Nursing End-Tidal CO2 51 59 62 Oxygen Flow Rate - Titration Pulse Oximetry Post Tiitration Home Medications Current Medication List: was personally reviewed by me Laboratory Data Attestation: I reviewed the patient's lab results. Result diagrams: 02/20/22 12:30 02/20/22 12:30 Lab Results 02/20/22 02/20/22 02/20/22 Range/Units 12:30 12:30 12:30 WBC (4.8-10.8) K/uL RBC (4.2-5.4) M/uL Hgb (12.0-16.0) g/dL POC Hgb (12.0-16.0) g/dl Hct (37-47) % POC Hct (37-47) % MCV (80-100) fL MCH (25-34) pg MCHC (32-36) g/dL RDW Std Deviation (36.4-46.3) fL RDW Coeff of Ana (11.5-14.5) % Plt Count (130-400) K/uL MPV (7.4-10.4) fL Immature Gran % (Auto) % Neut % (Auto) % Lymph % (Auto) % [place] % (Auto) % Eos % (Auto) % Baso % (Auto) % Neut # (Auto) (1.4-6.5) K/uL Lymph # (Auto) (1.2-3.4) K/uL [place] # (Auto) (0.11-0.59) K/uL Eos # (Auto) (0-0.5) K/uL Baso # (Auto) (0-0.2) K/uL Immature Gran # (Auto) (0.00-0.02) K/uL PT 9.8 (9.0-12.0) Seconds INR 0.9 (0.9-1.1) APTT < 20.0 L (21.0-31.0) Seconds PTT Ratio 0.7 VBG pH (7.36-7.41) VBG pCO2 (38-50) mmHg VBG pO2 mmHg VBG HCO3 mmol/L VBG O2 Saturation % VBG Base Excess mEq/L Barometric Pressure mm/Hg POC Sodium (135-144) mmol/L Sodium 140 (136-145) mmol/L POC Potassium (3.3-5.0) mmol/L Potassium 5.8 H (3.5-5.1) mmol/L POC Chloride (101-112) mmol/L Chloride 96 L (98-107) mmol/L Carbon Dioxide 32 (21-32) mmol/L POC Total CO2 (24-31) mmol/L Anion Gap 12 H (3-11) POC Anion Gap (16-25) mmol/L POC BUN (7-18) mg/dl BUN 30 H (6-23) mg/dl Creatinine 1.38 H (0.6-1.2) mg/dl POC Creatinine (0.6-1.3) mg/dl Est Cr Clr Drug Dosing Not Reportable Est GFR ( Amer) 45.7 ml/min Est GFR (Non-Af Amer) 39.5 ml/min BUN/Creatinine Ratio 21.7 H (10-20) Glucose 156 H (70-99(Fasting)) mg/dl POC Glucose (other) (70-99) mg/dl Lactate (0.4-2.0) mmol/L Calcium 10.2 H (8.5-10.1) mg/dl POC Ioniz Calcium Steffany (1.12-1.32) mmol/l Magnesium 1.7 (1.7-2.4) mg/dl Total Bilirubin 0.3 (0.2-1.0) mg/dl AST 19 (13-39) U/L ALT 13 (7-52) U/L Alkaline Phosphatase 69 (34-104) U/L Total Creatine Kinase 65 (26-192) U/L Troponin I High Sens 25.2 H (0-14) pg/ml Total Protein 7.2 (6.0-8.3) gm/dl Albumin 4.2 (3.4-5.0) gm/dl Globulin 3.0 (2.5-4.0) gm/dl Albumin/Globulin Ratio 1.4 (0.9-2) Lipase 37 (11-82) U/L Urine Color Urine Appearance (Clear) Urine pH (4.5-7.5) Ur Specific [place] (1.000-1.030) Urine Protein (Negative) Urine Glucose (UA) (Negative) Urine Ketones (Negative) Urine Blood (Negative) Urine Nitrite (Negative) Urine Bilirubin (Negative) Urine Urobilinogen (Negative) Ur Leukocyte Esterase (Negative) Urine WBC (Auto) (0-5) /hpf Urine RBC (Auto) (0-4) /hpf U Hyaline Cast (Auto) (0-5) /lpf U Epithel Cells (Auto) (0-5) /lpf Urine Bacteria (Auto) (Negative) Fluid Comment CSF Appearance CSF Color Xanthrochromic CSF WBC (0-5) /uL CSF RBC (0-) /uL CSF Cell Count Tube # CSF Chemistry Tube # CSF Glucose (40-70) mg/dl CSF Lactate (0.6-2.2) mmol/L CSF Total Protein (15-45) mg/dl CSF C.neoform/gat PCR (NotDetected) CSF CMV DNA (PCR) (NotDetected) CSF Enterovirus (PCR) (NotDetected) CSF E. coli K1 (PCR) (NotDetected) CSF H. influenzae (PCR) (NotDetected) CSF HSV I (PCR) (NotDetected) CSF HSV II (PCR) (NotDetected) CSF HHV 6 (PCR) (NotDetected) CSF L.monocytogenes PCR (NotDetected) CSF N. meningitidis PCR (NotDetected) CSF Parechovirus (PCR) (NotDetected) CSF S. agalactiae (PCR) (NotDetected) CSF S. pneumoniae (PCR) (NotDetected) CSF VZV DNA (PCR) (NotDetected) Salicylates < 3.0 L (3.0-30) mg/dl Urine Opiates Screen (Neg) Ur Methadone, Qual (Neg) Acetaminophen < 3 L (10-30) ug/ml Urine Barbiturates (Neg) Ur Phencyclidine (PCP) (Neg) U Amphetamin/Meth Scrn (Neg) MDMA (Ecstasy) Screen (Neg) U Benzodiazepines Scrn (Neg) Ur Cocaine Metabolite (Neg) U Marijuana (THC) Screen (Neg) Ethyl Alcohol mg/dL (<10.0) mg/dl SARS-CoV-2, RNA, NAAT (NEGATIVE) 02/20/22 02/20/22 02/20/22 Range/Units 12:30 12:30 12:30 WBC 11.56 H (4.8-10.8) K/uL RBC 4.68 (4.2-5.4) M/uL Hgb 13.4 (12.0-16.0) g/dL POC Hgb (12.0-16.0) g/dl Hct 41.4 (37-47) % POC Hct (37-47) % MCV 88.5 (80-100) fL MCH 28.6 (25-34) pg MCHC 32.4 (32-36) g/dL RDW Std Deviation 43.3 (36.4-46.3) fL RDW Coeff of Ana 13.3 (11.5-14.5) % Plt Count 180 (130-400) K/uL MPV 11.4 H (7.4-10.4) fL Immature Gran % (Auto) 0.3 % Neut % (Auto) 83.0 % Lymph % (Auto) 13.4 % [place] % (Auto) 1.9 % Eos % (Auto) 1.1 % Baso % (Auto) 0.3 % Neut # (Auto) 9.59 H (1.4-6.5) K/uL Lymph # (Auto) 1.55 (1.2-3.4) K/uL [place] # (Auto) 0.22 (0.11-0.59) K/uL Eos # (Auto) 0.13 (0-0.5) K/uL Baso # (Auto) 0.04 (0-0.2) K/uL Immature Gran # (Auto) 0.03 H (0.00-0.02) K/uL PT (9.0-12.0) Seconds INR (0.9-1.1) APTT (21.0-31.0) Seconds PTT Ratio VBG pH (7.36-7.41) VBG pCO2 (38-50) mmHg VBG pO2 mmHg VBG HCO3 mmol/L VBG O2 Saturation % VBG Base Excess mEq/L Barometric Pressure mm/Hg POC Sodium (135-144) mmol/L Sodium (136-145) mmol/L POC Potassium (3.3-5.0) mmol/L Potassium (3.5-5.1) mmol/L POC Chloride (101-112) mmol/L Chloride (98-107) mmol/L Carbon Dioxide (21-32) mmol/L POC Total CO2 (24-31) mmol/L Anion Gap (3-11) POC Anion Gap (16-25) mmol/L POC BUN (7-18) mg/dl BUN (6-23) mg/dl Creatinine (0.6-1.2) mg/dl POC Creatinine (0.6-1.3) mg/dl Est Cr Clr Drug Dosing Est GFR ( Amer) ml/min Est GFR (Non-Af Amer) ml/min BUN/Creatinine Ratio (10-20) Glucose (70-99(Fasting)) mg/dl POC Glucose (other) (70-99) mg/dl Lactate (0.4-2.0) mmol/L Calcium (8.5-10.1) mg/dl POC Ioniz Calcium Steffany (1.12-1.32) mmol/l Magnesium (1.7-2.4) mg/dl Total Bilirubin (0.2-1.0) mg/dl AST (13-39) U/L ALT (7-52) U/L Alkaline Phosphatase (34-104) U/L Total Creatine Kinase (26-192) U/L Troponin I High Sens (0-14) pg/ml Total Protein (6.0-8.3) gm/dl Albumin (3.4-5.0) gm/dl Globulin (2.5-4.0) gm/dl Albumin/Globulin Ratio (0.9-2) Lipase (11-82) U/L Urine Color Yellow Urine Appearance Clear (Clear) Urine pH 5.0 (4.5-7.5) Ur Specific [place] 1.022 (1.000-1.030) Urine Protein 1+ H (Negative) Urine Glucose (UA) Negative (Negative) Urine Ketones Trace H (Negative) Urine Blood Negative (Negative) Urine Nitrite Negative (Negative) Urine Bilirubin Negative (Negative) Urine Urobilinogen Negative (Negative) Ur Leukocyte Esterase 1+ H (Negative) Urine WBC (Auto) 10-30 H (0-5) /hpf Urine RBC (Auto) 5-10 H (0-4) /hpf U Hyaline Cast (Auto) 0 (0-5) /lpf U Epithel Cells (Auto) >30 H (0-5) /lpf Urine Bacteria (Auto) 1+ H (Negative) Fluid Comment CSF Appearance CSF Color Xanthrochromic CSF WBC (0-5) /uL CSF RBC (0-) /uL CSF Cell Count Tube # CSF Chemistry Tube # CSF Glucose (40-70) mg/dl CSF Lactate (0.6-2.2) mmol/L CSF Total Protein (15-45) mg/dl CSF C.neoform/gat PCR (NotDetected) CSF CMV DNA (PCR) (NotDetected) CSF Enterovirus (PCR) (NotDetected) CSF E. coli K1 (PCR) (NotDetected) CSF H. influenzae (PCR) (NotDetected) CSF HSV I (PCR) (NotDetected) CSF HSV II (PCR) (NotDetected) CSF HHV 6 (PCR) (NotDetected) CSF L.monocytogenes PCR (NotDetected) CSF N. meningitidis PCR (NotDetected) CSF Parechovirus (PCR) (NotDetected) CSF S. agalactiae (PCR) (NotDetected) CSF S. pneumoniae (PCR) (NotDetected) CSF VZV DNA (PCR) (NotDetected) Salicylates (3.0-30) mg/dl Urine Opiates Screen (Neg) Ur Methadone, Qual (Neg) Acetaminophen (10-30) ug/ml Urine Barbiturates (Neg) Ur Phencyclidine (PCP) (Neg) U Amphetamin/Meth Scrn (Neg) MDMA (Ecstasy) Screen (Neg) U Benzodiazepines Scrn (Neg) Ur Cocaine Metabolite (Neg) U Marijuana (THC) Screen (Neg) Ethyl Alcohol mg/dL (<10.0) mg/dl SARS-CoV-2, RNA, NAAT NEGATIVE (NEGATIVE) 02/20/22 02/20/22 02/20/22 Range/Units 12:30 12:35 13:43 WBC (4.8-10.8) K/uL RBC (4.2-5.4) M/uL Hgb (12.0-16.0) g/dL POC Hgb 13.9 (12.0-16.0) g/dl Hct (37-47) % POC Hct 41 (37-47) % MCV (80-100) fL MCH (25-34) pg MCHC (32-36) g/dL RDW Std Deviation (36.4-46.3) fL RDW Coeff of Ana (11.5-14.5) % Plt Count (130-400) K/uL MPV (7.4-10.4) fL Immature Gran % (Auto) % Neut % (Auto) % Lymph % (Auto) % [place] % (Auto) % Eos % (Auto) % Baso % (Auto) % Neut # (Auto) (1.4-6.5) K/uL Lymph # (Auto) (1.2-3.4) K/uL [place] # (Auto) (0.11-0.59) K/uL Eos # (Auto) (0-0.5) K/uL Baso # (Auto) (0-0.2) K/uL Immature Gran # (Auto) (0.00-0.02) K/uL PT (9.0-12.0) Seconds INR (0.9-1.1) APTT (21.0-31.0) Seconds PTT Ratio VBG pH (7.36-7.41) VBG pCO2 (38-50) mmHg VBG pO2 mmHg VBG HCO3 mmol/L VBG O2 Saturation % VBG Base Excess mEq/L Barometric Pressure mm/Hg POC Sodium 137 (135-144) mmol/L Sodium (136-145) mmol/L POC Potassium 5.7 H (3.3-5.0) mmol/L Potassium (3.5-5.1) mmol/L POC Chloride 97 L (101-112) mmol/L Chloride (98-107) mmol/L Carbon Dioxide (21-32) mmol/L POC Total CO2 33 H (24-31) mmol/L Anion Gap (3-11) POC Anion Gap 14.0 L (16-25) mmol/L POC BUN 31 H (7-18) mg/dl BUN (6-23) mg/dl Creatinine (0.6-1.2) mg/dl POC Creatinine 1.4 H (0.6-1.3) mg/dl Est Cr Clr Drug Dosing Est GFR ( Amer) ml/min Est GFR (Non-Af Amer) ml/min BUN/Creatinine Ratio (10-20) Glucose (70-99(Fasting)) mg/dl POC Glucose (other) 168 H (70-99) mg/dl Lactate (0.4-2.0) mmol/L Calcium (8.5-10.1) mg/dl POC Ioniz Calcium Steffany 1.24 (1.12-1.32) mmol/l Magnesium (1.7-2.4) mg/dl Total Bilirubin (0.2-1.0) mg/dl AST (13-39) U/L ALT (7-52) U/L Alkaline Phosphatase (34-104) U/L Total Creatine Kinase (26-192) U/L Troponin I High Sens (0-14) pg/ml Total Protein (6.0-8.3) gm/dl Albumin (3.4-5.0) gm/dl Globulin (2.5-4.0) gm/dl Albumin/Globulin Ratio (0.9-2) Lipase (11-82) U/L Urine Color Urine Appearance (Clear) Urine pH (4.5-7.5) Ur Specific [place] (1.000-1.030) Urine Protein (Negative) Urine Glucose (UA) (Negative) Urine Ketones (Negative) Urine Blood (Negative) Urine Nitrite (Negative) Urine Bilirubin (Negative) Urine Urobilinogen (Negative) Ur Leukocyte Esterase (Negative) Urine WBC (Auto) (0-5) /hpf Urine RBC (Auto) (0-4) /hpf U Hyaline Cast (Auto) (0-5) /lpf U Epithel Cells (Auto) (0-5) /lpf Urine Bacteria (Auto) (Negative) Fluid Comment CSF Appearance CSF Color Xanthrochromic CSF WBC (0-5) /uL CSF RBC (0-) /uL CSF Cell Count Tube # CSF Chemistry Tube # CSF Glucose (40-70) mg/dl CSF Lactate (0.6-2.2) mmol/L CSF Total Protein (15-45) mg/dl CSF C.neoform/gat PCR (NotDetected) CSF CMV DNA (PCR) (NotDetected) CSF Enterovirus (PCR) (NotDetected) CSF E. coli K1 (PCR) (NotDetected) CSF H. influenzae (PCR) (NotDetected) CSF HSV I (PCR) (NotDetected) CSF HSV II (PCR) (NotDetected) CSF HHV 6 (PCR) (NotDetected) CSF L.monocytogenes PCR (NotDetected) CSF N. meningitidis PCR (NotDetected) CSF Parechovirus (PCR) (NotDetected) CSF S. agalactiae (PCR) (NotDetected) CSF S. pneumoniae (PCR) (NotDetected) CSF VZV DNA (PCR) (NotDetected) Salicylates (3.0-30) mg/dl Urine Opiates Screen Neg (Neg) Ur Methadone, Qual Neg (Neg) Acetaminophen (10-30) ug/ml Urine Barbiturates Neg (Neg) Ur Phencyclidine (PCP) Neg (Neg) U Amphetamin/Meth Scrn Neg (Neg) MDMA (Ecstasy) Screen Neg (Neg) U Benzodiazepines Scrn Neg (Neg) Ur Cocaine Metabolite Neg (Neg) U Marijuana (THC) Screen Neg (Neg) Ethyl Alcohol mg/dL < 10.0 (<10.0) mg/dl SARS-CoV-2, RNA, NAAT (NEGATIVE) 02/20/22 02/20/22 02/20/22 Range/Units 13:43 13:45 15:30 WBC (4.8-10.8) K/uL RBC (4.2-5.4) M/uL Hgb (12.0-16.0) g/dL POC Hgb (12.0-16.0) g/dl Hct (37-47) % POC Hct (37-47) % MCV (80-100) fL MCH (25-34) pg MCHC (32-36) g/dL RDW Std Deviation (36.4-46.3) fL RDW Coeff of Ana (11.5-14.5) % Plt Count (130-400) K/uL MPV (7.4-10.4) fL Immature Gran % (Auto) % Neut % (Auto) % Lymph % (Auto) % [place] % (Auto) % Eos % (Auto) % Baso % (Auto) % Neut # (Auto) (1.4-6.5) K/uL Lymph # (Auto) (1.2-3.4) K/uL [place] # (Auto) (0.11-0.59) K/uL Eos # (Auto) (0-0.5) K/uL Baso # (Auto) (0-0.2) K/uL Immature Gran # (Auto) (0.00-0.02) K/uL PT (9.0-12.0) Seconds INR (0.9-1.1) APTT (21.0-31.0) Seconds PTT Ratio VBG pH 7.18 L (7.36-7.41) VBG pCO2 87 H (38-50) mmHg VBG pO2 27 mmHg VBG HCO3 32 mmol/L VBG O2 Saturation < 60.0 % VBG Base Excess 0.7 mEq/L Barometric Pressure 731.7 mm/Hg POC Sodium (135-144) mmol/L Sodium (136-145) mmol/L POC Potassium (3.3-5.0) mmol/L Potassium (3.5-5.1) mmol/L POC Chloride (101-112) mmol/L Chloride (98-107) mmol/L Carbon Dioxide (21-32) mmol/L POC Total CO2 (24-31) mmol/L Anion Gap (3-11) POC Anion Gap (16-25) mmol/L POC BUN (7-18) mg/dl BUN (6-23) mg/dl Creatinine (0.6-1.2) mg/dl POC Creatinine (0.6-1.3) mg/dl Est Cr Clr Drug Dosing Est GFR ( Amer) ml/min Est GFR (Non-Af Amer) ml/min BUN/Creatinine Ratio (10-20) Glucose (70-99(Fasting)) mg/dl POC Glucose (other) (70-99) mg/dl Lactate 1.2 (0.4-2.0) mmol/L Calcium (8.5-10.1) mg/dl POC Ioniz Calcium Steffany (1.12-1.32) mmol/l Magnesium (1.7-2.4) mg/dl Total Bilirubin (0.2-1.0) mg/dl AST (13-39) U/L ALT (7-52) U/L Alkaline Phosphatase (34-104) U/L Total Creatine Kinase (26-192) U/L Troponin I High Sens (0-14) pg/ml Total Protein (6.0-8.3) gm/dl Albumin (3.4-5.0) gm/dl Globulin (2.5-4.0) gm/dl Albumin/Globulin Ratio (0.9-2) Lipase (11-82) U/L Urine Color Urine Appearance (Clear) Urine pH (4.5-7.5) Ur Specific [place] (1.000-1.030) Urine Protein (Negative) Urine Glucose (UA) (Negative) Urine Ketones (Negative) Urine Blood (Negative) Urine Nitrite (Negative) Urine Bilirubin (Negative) Urine Urobilinogen (Negative) Ur Leukocyte Esterase (Negative) Urine WBC (Auto) (0-5) /hpf Urine RBC (Auto) (0-4) /hpf U Hyaline Cast (Auto) (0-5) /lpf U Epithel Cells (Auto) (0-5) /lpf Urine Bacteria (Auto) (Negative) Fluid Comment CSF Appearance CSF Color Xanthrochromic CSF WBC (0-5) /uL CSF RBC (0-) /uL CSF Cell Count Tube # CSF Chemistry Tube # CSF Glucose (40-70) mg/dl CSF Lactate (0.6-2.2) mmol/L CSF Total Protein (15-45) mg/dl CSF C.neoform/gat PCR Not Detected (NotDetected) CSF CMV DNA (PCR) Not Detected (NotDetected) CSF Enterovirus (PCR) Not Detected (NotDetected) CSF E. coli K1 (PCR) Not Detected (NotDetected) CSF H. influenzae (PCR) Not Detected (NotDetected) CSF HSV I (PCR) Not Detected (NotDetected) CSF HSV II (PCR) Not Detected (NotDetected) CSF HHV 6 (PCR) Not Detected (NotDetected) CSF L.monocytogenes PCR Not Detected (NotDetected) CSF N. meningitidis PCR Not Detected (NotDetected) CSF Parechovirus (PCR) Not Detected (NotDetected) CSF S. agalactiae (PCR) Not Detected (NotDetected) CSF S. pneumoniae (PCR) Not Detected (NotDetected) CSF VZV DNA (PCR) Not Detected (NotDetected) Salicylates (3.0-30) mg/dl Urine Opiates Screen (Neg) Ur Methadone, Qual (Neg) Acetaminophen (10-30) ug/ml Urine Barbiturates (Neg) Ur Phencyclidine (PCP) (Neg) U Amphetamin/Meth Scrn (Neg) MDMA (Ecstasy) Screen (Neg) U Benzodiazepines Scrn (Neg) Ur Cocaine Metabolite (Neg) U Marijuana (THC) Screen (Neg) Ethyl Alcohol mg/dL (<10.0) mg/dl SARS-CoV-2, RNA, NAAT (NEGATIVE) 02/20/22 02/20/22 02/20/22 Range/Units 15:30 15:30 15:30 WBC (4.8-10.8) K/uL RBC (4.2-5.4) M/uL Hgb (12.0-16.0) g/dL POC Hgb (12.0-16.0) g/dl Hct (37-47) % POC Hct (37-47) % MCV (80-100) fL MCH (25-34) pg MCHC (32-36) g/dL RDW Std Deviation (36.4-46.3) fL RDW Coeff of Ana (11.5-14.5) % Plt Count (130-400) K/uL MPV (7.4-10.4) fL Immature Gran % (Auto) % Neut % (Auto) % Lymph % (Auto) % [place] % (Auto) % Eos % (Auto) % Baso % (Auto) % Neut # (Auto) (1.4-6.5) K/uL Lymph # (Auto) (1.2-3.4) K/uL [place] # (Auto) (0.11-0.59) K/uL Eos # (Auto) (0-0.5) K/uL Baso # (Auto) (0-0.2) K/uL Immature Gran # (Auto) (0.00-0.02) K/uL PT (9.0-12.0) Seconds INR (0.9-1.1) APTT (21.0-31.0) Seconds PTT Ratio VBG pH (7.36-7.41) VBG pCO2 (38-50) mmHg VBG pO2 mmHg VBG HCO3 mmol/L VBG O2 Saturation % VBG Base Excess mEq/L Barometric Pressure mm/Hg POC Sodium (135-144) mmol/L Sodium (136-145) mmol/L POC Potassium (3.3-5.0) mmol/L Potassium (3.5-5.1) mmol/L POC Chloride (101-112) mmol/L Chloride (98-107) mmol/L Carbon Dioxide (21-32) mmol/L POC Total CO2 (24-31) mmol/L Anion Gap (3-11) POC Anion Gap (16-25) mmol/L POC BUN (7-18) mg/dl BUN (6-23) mg/dl Creatinine (0.6-1.2) mg/dl POC Creatinine (0.6-1.3) mg/dl Est Cr Clr Drug Dosing Est GFR ( Amer) ml/min Est GFR (Non-Af Amer) ml/min BUN/Creatinine Ratio (10-20) Glucose (70-99(Fasting)) mg/dl POC Glucose (other) (70-99) mg/dl Lactate (0.4-2.0) mmol/L Calcium (8.5-10.1) mg/dl POC Ioniz Calcium Steff[place] (1.12-1.32) mmol/l Magnesium (1.7-2.4) mg/dl Total Bilirubin (0.2-1.0) mg/dl AST (13-39) U/L ALT (7-52) U/L Alkaline Phosphatase (34-104) U/L Total Creatine Kinase (26-192) U/L Troponin I High Sens (0-14) pg/ml Total Protein (6.0-8.3) gm/dl Albumin (3.4-5.0) gm/dl Globulin (2.5-4.0) gm/dl Albumin/Globulin Ratio (0.9-2) Lipase (11-82) U/L Urine Color Urine Appearance (Clear) Urine pH (4.5-7.5) Ur Specific [place] (1.000-1.030) Urine Protein (Negative) Urine Glucose (UA) (Negative) Urine Ketones (Negative) Urine Blood (Negative) Urine Nitrite (Negative) Urine Bilirubin (Negative) Urine Urobilinogen (Negative) Ur Leukocyte Esterase (Negative) Urine WBC (Auto) (0-5) /hpf Urine RBC (Auto) (0-4) /hpf U Hyaline Cast (Auto) (0-5) /lpf U Epithel Cells (Auto) (0-5) /lpf Urine Bacteria (Auto) (Negative) Fluid Comment CSF Appearance Clear CSF Color Colorless Xanthrochromic No xanthochromia CSF WBC 0 (0-5) /uL CSF RBC 10 (0-) /uL CSF Cell Count Tube # 3 CSF Chemistry Tube # 1 CSF Glucose 92 H (40-70) mg/dl CSF Lactate 2.2 (0.6-2.2) mmol/L CSF Total Protein 59.2 H (15-45) mg/dl CSF C.neoform/gat PCR (NotDetected) CSF CMV DNA (PCR) (NotDetected) CSF Enterovirus (PCR) (NotDetected) CSF E. coli K1 (PCR) (NotDetected) CSF H. influenzae (PCR) (NotDetected) CSF HSV I (PCR) (NotDetected) CSF HSV II (PCR) (NotDetected) CSF HHV 6 (PCR) (NotDetected) CSF L.monocytogenes PCR (NotDetected) CSF N. meningitidis PCR (NotDetected) CSF Parechovirus (PCR) (NotDetected) CSF S. agalactiae (PCR) (NotDetected) CSF S. pneumoniae (PCR) (NotDetected) CSF VZV DNA (PCR) (NotDetected) Salicylates (3.0-30) mg/dl Urine Opiates Screen (Neg) Ur Methadone, Qual (Neg) Acetaminophen (10-30) ug/ml Urine Barbiturates (Neg) Ur Phencyclidine (PCP) (Neg) U Amphetamin/Meth Scrn (Neg) MDMA (Ecstasy) Screen (Neg) U Benzodiazepines Scrn (Neg) Ur Cocaine Metabolite (Neg) U Marijuana (THC) Screen (Neg) Ethyl Alcohol mg/dL (<10.0) mg/dl SARS-CoV-2, RNA, NAAT (NEGATIVE) Administered Medications Propofol (Diprivan) 1,000 mg in 100 mls @ 9.972 mls/hr IV .Q10H2M [facility]; Protocol Stop: 02/23/22 15:29 Last Admin: 02/20/22 18:46 Dose: 30 mcg/kg/min, 15 mls/hr Documented by: [id number] Cosigned by: [id number] Titration: 02/20/22 18:46 Dose: 30 mcg/kg/min, 15 mls/hr Documented by: [id number] Cosigned by: [id number] Admin: 02/20/22 15:31 Dose: 30 mcg/kg/min, 15 mls/hr Documented by: [id number] Cosigned by: [id number] Discontinued Medications Gadobutrol (Gadobutrol 65ml Vial) 8.5 ml IV ONCE ONE Stop: 02/20/22 17:41 Last Admin: 02/20/22 17:41 Dose: 8.5 ml Documented by: [id number] Levetiracetam 2,000 mg/ Sodium (Chloride) 270 mls @ 440 mls/hr IV NOW ONE Stop: 02/20/22 13:06 Last Infusion: 02/20/22 13:20 Dose: 0 mls/hr Documented by: [id number] Admin: 02/20/22 12:39 Dose: 440 mls/hr Documented by: [id number] Piperacillin Sod/Tazobactam Sod (Zosyn) 4.5 gm in 120 mls @ 240 mls/hr IV NOW ONE Stop: 02/20/22 14:19 Last Infusion: 02/20/22 14:36 Dose: 0 mls/hr Documented by: [id number] Admin: 02/20/22 14:12 Dose: 240 mls/hr Documented by: [id number] Vancomycin HCl 1,750 mg/ (Sodium Chloride) 535 mls @ 200 mls/hr IV NOW ONE Stop: 02/20/22 18:10 Last Admin: 02/20/22 16:24 Dose: 200 mls/hr Documented by: [id number] Ceftriaxone Sodium 2,000 mg/ (Dextrose) 70 mls @ 140 mls/hr IV Q12H YAN Stop: 03/02/22 15:59 Last Infusion: 02/20/22 16:24 Dose: 0 mls/hr Documented by: [id number] Admin: 02/20/22 16:11 Dose: 140 mls/hr Documented by: [id number] Acyclovir Sodium 610 mg/ (Dextrose) 112.2 mls @ 100 mls/hr IV Q12H [facility]; Protocol Stop: 03/02/22 15:59 Last Admin: 02/20/22 16:24 Dose: 100 mls/hr Documented by: [id number] Ioversol (Optiray 320 125ml) 119 ml IV ONCE ONE Stop: 02/20/22 13:26 Last Admin: 02/20/22 13:27 Dose: 119 ml Documented by: [id number] Lorazepam (Lorazepam 2 Mg/1 Ml Vial) Confirm Administered Dose 4 mg .ROUTE .STK- MED ONE Stop: 02/20/22 12:15 Last Admin: 02/20/22 14:10 Dose: Not Given Documented by: [id number] Lorazepam (Lorazepam 2 Mg/1 Ml Vial) 2 mg IV NOW STA Stop: 02/20/22 12:42 Last Admin: 02/20/22 12:46 Dose: 2 mg Documented by: [id number] Lorazepam (Lorazepam 2 Mg/1 Ml Vial) Confirm Administered Dose 2 mg .ROUTE .STK- MED ONE Stop: 02/20/22 12:43 Last Admin: 02/20/22 12:46 Dose: Not Given Documented by: [id number] Miscellaneous (Rapid Sequence Induction Bag) Confirm Administered Dose 1 ea .ROUTE .STK-MED ONE Stop: 02/20/22 12:11 Last Admin: 02/20/22 14:09 Dose: Not Given Documented by: [id number] Miscellaneous (Rapid Sequence Induction Bag) Confirm Administered Dose 1 ea .ROUTE .STK-MED ONE Stop: 02/20/22 14:57 Last Admin: 02/20/22 16:11 Dose: Not Given Documented by: [id number] Riki (Stat Iv Infusion Titration Per Protocol) 1 ea N/A NOW STA Stop: 02/20/22 15:54 Last Admin: 02/20/22 16:12 Dose: Not Given Documented by: [id number] Norepinephrine Bitartrate (Norepinephrine/D5w 4 Mg/250 Ml) Confirm Administered Dose 4 mg IV .STK-MED ONE Stop: 02/20/22 18:35 Last Admin: 02/20/22 18:41 Dose: Not Given Documented by: [id number] Propofol (Propofol Iv Emulsion 10 Mg/Ml 20 Ml Vial) Confirm Administered Dose 200 mg IV .STK-MED ONE Stop: 02/20/22 14:59 Last Admin: 02/20/22 16:12 Dose: Not Given Documented by: [id number] Propofol (Propofol Iv Emulsion 10 Mg/Ml 100 Ml Vial) Confirm Administered Dose 1,000 mg IV .STK-MED ONE Stop: 02/20/22 14:59 Last Admin: 02/20/22 16:12 Dose: Not Given Documented by: [id number] Propofol (Propofol Iv Emulsion 10 Mg/Ml 20 Ml Vial) 20 mg IV ONCE ONE Stop: 02/20/22 15:16 Last Admin: 02/20/22 16:12 Dose: 20 mg Documented by: [id number] Cosigned by: [id number] Imaging Data Radiologist's Impression: Chest X-Ray 02/20/22 12:19 XR chest 1V portable CLINICAL HISTORY: sz. Evaluate cardiopulmonary status COMPARISON STUDY: 11/02/2021 TECHNIQUE: 1 view of the chest FINDINGS: Single frontal view of the chest demonstrates the cardiomediastinal silhouette to be within normal limits. The patient is rotated to the right. There is h yperinflation of the lungs with attenuation of the pulmonary vasculature peripherally characteristic of underlying chronic obstructive pulmonary disease. The lungs are clear of alveolar opacities. There is no evidence for pleural effusion. There is no evidence for vascular congestion. There is no acute osseous pathology. IMPRESSION: 1. No acute cardiopulmonary disease. 2. Underlying COPD. ACT 112: Negative or not required by law. Electronically signed by: Willy Valdes M.D. 02/20/2022 1:[address] 02/20/22 12:21 CT head/brain wo con CLINICAL HISTORY: sz COMPARISON STUDY: 10/21/2020 CT DOSE: 2710.81 mGy.cm TECHNIQUE: Standard CT of the Brain was performed without IV contrast. A dose lowering technique was utilized adhering to the principles of ALARA. FINDINGS: There is patient motion artifact present. Extraaxial space: There is no evidence for subdural hematoma. There are no extra-axial fluid collections. Ventricles and cisterns: The ventricles are normal in size and configuration. There is no evidence for midline shift or mass effect. Parenchyma: There is no subarachnoid or intraparenchymal hemorrhage. There is no evidence for an acute infarct or cerebral edema. There is homogeneous attenuation of the brain parenchyma. There are no gross mass lesions. Osseous structures: There is no evidence for an acute fracture. There is mucosal thickening in the right maxillary antrum. The remaining visualized paranasal sinuses are clear. There is diffuse mucosal thickening of the right mastoid air cells and compared to the left. Soft tissues: There is no evidence for focal soft tissue swelling. IMPRESSION: 1. No acute intracerebral pathology. 2. Right maxillary sinusitis. 3. Right mastoiditis ACT 112: Negative or not required by law. Electronically signed by: Willy Valdes M.D. 02/20/2022 1:38 PM Chest CTA 02/20/22 13:17 CT angio chest PE protocol CLINICAL HISTORY: Difficulty breathing COMPARISON STUDY: Portable chest from 02/18/2022 CT DOSE: 687.16 mGy.cm TECHNIQUE: CT Angio of the chest was performed.followed by image post processing with coronal, and sagittal MIP reformats. Contrast Volume: Optiray 320, 119 ml FINDINGS: Vasculature: There is homogeneous perfusion of the pulmonary vasculature bilaterally. No intraluminal filling defects or evidence for pulmonary embolus is seen. Airway: The airway is clear. No endobronchial lesion is identified. Lungs: There is mild to moderate centrilobular emphysematous changes present. There is a 1.2 cm subpleural nodular density seen involving the right lower lobe is noted on image 83. Branching parenchymal density seen within the right middle lobe characteristic of scarring. The lungs are otherwise clear of acute alveolar opacities, air bronchograms or additional pulmonary nodules. Pleura: There is no evidence for pleural effusion. There is no evidence for p neumothorax. Mediastinum: There is no evidence for pathologic adenopathy. There is a scoliotic curve with displacement of the heart to the left. The heart size is within normal limits. There is mild coronary artery calcification. The thoracic aorta is within normal limits. There is no evidence for pericardial effusion. Upper abdomen:The adrenal glands are normal bilaterally. Osseous structures: There is no acute osseous pathology. Impression: 1. No CTA evidence for pulmonary embolus. 2. No acute chest disease. 3. Mild to moderate centrilobular emphysematous changes with right lower lobe pulmonary nodule. Follow-up CT chest in 3-6 months recommended for further evaluation. ACT 112: Positive. There are findings on this exam that require communication between the performing entity and the patient following Patient Test Result Information Act ([place] Act 112) guidelines. Electronically signed by: Willy Valdes M.D. 02/20/2022 1:48 PM Chest X-Ray 02/20/22 15:18 XR chest 1V portable CLINICAL HISTORY: Status post intubation. COMPARISON STUDY: 02/20/2022 at 1252 hours TECHNIQUE: 1 view of the chest FINDINGS: Single frontal view of the chest demonstrates the cardiomediastinal silhouette to be within normal limits. Endotracheal tube has been place with its tip approximately 2.6 cm above the erik. NG tube extends below the edge of the film and into the stomach. The lungs are clear of alveolar opacities. There is no evidence for pleural effusion. There is no evidence for vascular congestion. There is no acute osseous pathology. IMPRESSION: 1. No acute cardiopulmonary disease. 2. Status post intubation and NG tube placement. ACT 112: Negative or not required by law. Electronically signed by: Willy Valdes M.D. 02/20/2022 3:32 PM Discharge Plan Visit Data Chief Complaint: Seizure ED Provider: Elías Stevens Discharge Problem: Seizure, Respiratory failure, Fever, AMS (altered mental status) Patient Disposition: Admitted As Inpatient Discharge Instructions Interventions: ED Discharge Assessment Last Done: 02/20/22 17:33 Discharge Problem: Respiratory failure Qualifiers: Chronicity: acute Respiratory failure complication: hypoxia and hypercapnia Qualified Code(s): J96.01 - Acute respiratory failure with hypoxia Fever Qualifiers: Fever type: unspecified Qualified Code(s): R50.9 - Fever, unspecified AMS (altered mental status) Qualifiers: Altered mental status type: unspecified Qualified Code(s): R41.82 - Altered mental status, unspecified
[2022-02-20 12:48] LABS: iSTAT Creatinine 1.4 mg/dl (0.6-1.3); iSTAT Hemoglobin 13.9 g/dl (12.0-16.0); iSTAT Ionized Calcium 1.24 mmol/l (1.12-1.32); iSTAT Potassium 5.7 mmol/L (3.3-5.0)
[2022-02-20 12:50] LABS: Basophils # (auto) 0.04 K/uL (0-0.2); Basophils % (auto) 0.3 %; Eosinophils # (auto) 0.13 K/uL (0-0.5); Eosinophils % (auto) 1.1 %; Hematocrit (blood only) 41.4 % (37-47); Hemoglobin 13.4 g/dL (12.0-16.0); Immature Granulocytes # (auto) 0.03 K/uL (0.00-0.02); Immature Granulocytes % (auto) 0.3 %; Lymphocytes # (auto) 1.55 K/uL (1.2-3.4); Lymphocytes % (auto) 13.4 %; Mean Corpuscular Hemoglobin 28.6 pg (25-34); Mean Corpuscular Hgb Conc 32.4 g/dL (32-36); Mean Corpuscular Volume 88.5 fL (80-100); Mean Platelet Volume 11.4 fL (7.4-10.4); Monocytes # (auto) 0.22 K/uL (0.11-0.59); Monocytes % (auto) 1.9 %; Neutrophils # (auto) 9.59 K/uL (1.4-6.5); Platelet Count 180 K/uL (130-400); RDW Coefficient of Variation 13.3 % (11.5-14.5); RDW Standard Deviation 43.3 fL (36.4-46.3); Red Blood Count 4.68 M/uL (4.2-5.4); White Blood Count 11.56 K/uL (4.8-10.8)
--- NOTE | 2022-02-20 13:04 | XRay Report ---
XR chest 1V portable CLINICAL HISTORY: sz. Evaluate cardiopulmonary status COMPARISON STUDY: 11/02/2021 TECHNIQUE: 1 view of the chest FINDINGS: Single frontal view of the chest demonstrates the cardiomediastinal silhouette to be within normal li mits. The patient is rotated to the right. There is hyperinflation of the lungs with attenuation of t he pulmonary vasculature peripherally characteristic of underlying chronic obstructive pulmonary dise ase. The lungs are clear of alveolar opacities. There is no evidence for pleural effusion. There is n o evidence for vascular congestion. There is no acute osseous pathology. IMPRESSION: 1. No acute cardiopulmonary disease. 2. Underlying COPD. ACT 112: Negative or not required by law. Electronically signed by: Willy Valdes M.D. 02/20/2022 1:02 PM
[2022-02-20 13:18] LABS: Acetaminophen < 3 ug/ml (10-30); Salicylate < 3.0 mg/dl (3.0-30)
[2022-02-20 13:19] LABS: Appearance Urine Clear (Clear); Bacteria Urine Automated 1+ (Negative); Bilirubin Urine Negative (Negative); Blood Urine Negative (Negative); Color Urine Yellow; Epithelial Cell Urine Auto >30 /lpf (0-5); Glucose Urine UA Negative (Negative); Ketones Urine Trace (Negative); Leukocyte Esterase Urine 1+ (Negative); Nitrite Urine Negative (Negative); Protein Urine 1+ (Negative); Specific Gravity Urine 1.022 (1.000-1.030); Urobilinogen Urine Negative (Negative)
[2022-02-20 13:20] LABS: INR 0.9 (0.9-1.1); Partial Thromboplastin Ratio 0.7; Prothrombin Time 9.8 Seconds (9.0-12.0)
[2022-02-20] MEDS ORDERED: OPTIRAY 320 125ml IV ONE (13:25)
[2022-02-20 13:37] LABS: Albumin Level 4.2 gm/dl (3.4-5.0); Anion Gap 12 (3-11); Bilirubin,Total 0.3 mg/dl (0.2-1.0); Calcium 10.2 mg/dl (8.5-10.1); Carbon Dioxide 32 mmol/L (21-32); Chloride 96 mmol/L (98-107); Magnesium 1.7 mg/dl (1.7-2.4); Potassium 5.8 mmol/L (3.5-5.1); Sodium 140 mmol/L (136-145)
[2022-02-20 13:39] LABS: Cast Urine Automated 0 /lpf (0-5)
--- NOTE | 2022-02-20 13:40 | CT Scan Report ---
CT head/brain wo con CLINICAL HISTORY: sz COMPARISON STUDY: 10/21/2020 CT DOSE: 2710.81 mGy.cm TECHNIQUE: Standard CT of the Brain was performed without IV contrast. A dose lowering technique was utilized adhering to the principles of ALARA. FINDINGS: There is patient motion artifact present. Extraaxial space: There is no evidence for subdural hematoma. There are no extra-axial fluid collecti ons. Ventricles and cisterns: The ventricles are normal in size and configuration. There is no evidence fo r midline shift or mass effect. Parenchyma: There is no subarachnoid or intraparenchymal hemorrhage. There is no evidence for an acut e infarct or cerebral edema. There is homogeneous attenuation of the brain parenchyma. There are no g ross mass lesions. Osseous structures: There is no evidence for an acute fracture. There is mucosal thickening in the ri ght maxillary antrum. The remaining visualized paranasal sinuses are clear. There is diffuse mucosal thickening of the right mastoid air cells and compared to the left. Soft tissues: There is no evidence for focal soft tissue swelling. IMPRESSION: 1. No acute intracerebral pathology. 2. Right maxillary sinusitis. 3. Right mastoiditis ACT 112: Negative or not required by law. Electronically signed by: Willy Valdes M.D. 02/20/2022 1:38 PM
[2022-02-20 13:43] LABS: Alanine Aminotransferase 13 U/L (7-52); Albumin Globulin Ratio 1.4 (0.9-2); Alkaline Phosphatase 69 U/L (34-104); Aspartate Aminotransferase 19 U/L (13-39); BUN Creatinine Ratio 21.7 (10-20); Blood Urea Nitrogen 30 mg/dl (6-23); Creatine Kinase 65 U/L (26-192); Est GFR (African American) 45.7 ml/min; Est GFR (Non-African American) 39.5 ml/min; Glucose 156 mg/dl (70-99(Fasting)); Lipase 37 U/L (11-82); Total Protein 7.2 gm/dl (6.0-8.3)
[2022-02-20 13:45] LABS: Amphetamines+Metham, Urine Neg (Neg); Barbiturates, Urine Neg (Neg); Benzodiazepine, Urine Neg (Neg); Cocaine, Urine Neg (Neg); MDMA (Ecstacy), Urine Neg (Neg); Methadone, Urine Neg (Neg); Opiate, Urine Neg (Neg); Phencyclidine, Urine Neg (Neg)
[2022-02-20] MEDS ORDERED: PIPERACILL/TAZOBAC CONSULT ACTIVE PRN (13:50)
[2022-02-20] MEDS ORDERED: PIPERACILLIN/TAZOBACTAM 4.5 GM/120 ML BAG IV ONE (13:50)
--- NOTE | 2022-02-20 13:50 | CT Scan Report ---
CT angio chest PE protocol CLINICAL HISTORY: Difficulty breathing COMPARISON STUDY: Portable chest from 02/18/2022 CT DOSE: 687.16 mGy.cm TECHNIQUE: CT Angio of the chest was performed.followed by image post processing with coronal, and s agittal MIP reformats. Contrast Volume: Optiray 320, 119 ml FINDINGS: Vasculature: There is homogeneous perfusion of the pulmonary vasculature bilaterally. No intraluminal filling defects or evidence for pulmonary embolus is seen. Airway: The airway is clear. No endobronchial lesion is identified. Lungs: There is mild to moderate centrilobular emphysematous changes present. There is a 1.2 cm subpl eural nodular density seen involving the right lower lobe is noted on image 83. Branching parenchymal density seen within the right middle lobe characteristic of scarring. The lungs are otherwise clear of acute alveolar opacities, air bronchograms or additional pulmonary nodules. Pleura: There is no evidence for pleural effusion. There is no evidence for pneumothorax. Mediastinum: There is no evidence for pathologic adenopathy. There is a scoliotic curve with displace ment of the heart to the left. The heart size is within normal limits. There is mild coronary artery calcification. The thoracic aorta is within normal limits. There is no evidence for pericardial effus ion. Upper abdomen:The adrenal glands are normal bilaterally. Osseous structures: There is no acute osseous pathology. Impression: 1. No CTA evidence for pulmonary embolus. 2. No acute chest disease. 3. Mild to moderate centrilobular emphysematous changes with right lower lobe pulmonary nodule. Follo w-up CT chest in 3-6 months recommended for further evaluation. ACT 112: Positive. There are findings on this exam that require communication between the performing entity and the patient following Patient Test Result Information Act ([place] Act 112) guidelines. Electronically signed by: Willy Valdes M.D. 02/20/2022 1:48 PM
[2022-02-20 13:52] LABS: Troponin I High Sensitivity 25.2 pg/ml (0-14)
[2022-02-20 14:15] LABS: Base Excess VBG 0.7 mEq/L; HCO3 VBG 32 mmol/L; PCO2 VBG 87 mmHg (38-50); PO2 VBG 27 mmHg; pH VBG 7.18 (7.36-7.41)
[2022-02-20 14:18] LABS: Oxygen Saturation VBG < 60.0 %
[2022-02-20 14:24] LABS: Partial Thromboplastin Time < 20.0 Seconds (21.0-31.0)
[2022-02-20] MEDS ORDERED: RAPID SEQUENCE INDUCTION BAG ONE (14:56)
[2022-02-20] MEDS ORDERED: PROPOFOL IV EMULSION 10 MG/ML 100 ML VIAL IV ONE (14:58)
[2022-02-20] MEDS ORDERED: PROPOFOL IV EMULSION 10 MG/ML 20 ML VIAL IV ONE ×3 (14:58→15:15)
--- NOTE | 2022-02-20 15:14 | Electrocardiogram Report ---
Test Reason : Blood Pressure : / mmHG Vent. Rate : 134 BPM Atrial Rate : 134 BPM P-R Int : 152 ms QRS Dur : 090 ms QT Int : 290 ms P-R-T Axes : 068 032 076 degrees QTc Int : 433 ms Poor data quality, interpretation may be adversely affected Sinus tachycardia Otherwise normal ECG When compared with ECG of 27-OCT-2021 19:39, T wave inversion no longer evident in Lateral leads Confirmed by Elías Keenan ([id number]) on 02/20/2022 3:14:25 PM Referred By: Confirmed By:Elías Keenan
[2022-02-20] MEDS ORDERED: PROPOFOL BOLUS FROM BAG IV PRN (15:19)
[2022-02-20] MEDS ORDERED: STAT IV Infusion **Titration per Protocol STA ×3 (15:19→18:33)
[2022-02-20] MEDS ORDERED: VANCOMYCIN CONSULT ACTIVE PRN (15:27)
[2022-02-20] MEDS ORDERED: VANCOMYCIN HCL 1,750 MG in SODIUM CHLORIDE 0.9% 500 ML IV ONE (15:30)
[2022-02-20] MEDS: propofoL 1,000 MG/100 ML VIAL IV SCH ×2 (15:31→18:46)
--- NOTE | 2022-02-20 15:35 | XRay Report ---
XR chest 1V portable CLINICAL HISTORY: Status post intubation. COMPARISON STUDY: 02/20/2022 at 1252 hours TECHNIQUE: 1 view of the chest FINDINGS: Single frontal view of the chest demonstrates the cardiomediastinal silhouette to be within normal li mits. Endotracheal tube has been place with its tip approximately 2.6 cm above the erik. NG tube ex tends below the edge of the film and into the stomach. The lungs are clear of alveolar opacities. The re is no evidence for pleural effusion. There is no evidence for vascular congestion. There is no acu te osseous pathology. IMPRESSION: 1. No acute cardiopulmonary disease. 2. Status post intubation and NG tube placement. ACT 112: Negative or not required by law. Electronically signed by: Willy Valdes M.D. 02/20/2022 3:32 PM
--- NOTE | 2022-02-20 15:55 | Procedure Note ---
Procedure Note Date of Service February 20, 2022 Note Procedure date: Noted above Procedure: Central venous access Pre-procedure indication: Poor vascular access, intraosseous line in place Post-procedure Diagnosis: same as above Prior to Procedure: Informed Consent: The risks, benefits, indications, potential complications, and alternatives were explained to the patient's son and verbal informed consent obtained. Attending Staff: Rosi Lee DO Resident/APC: Emliy Skin Prep: Chlorhexidine Anesthesia: 4 mL 1% lidocaine without epinephrine The identity of the patient was confirmed and a bedside time out was performed. Description of Procedure: After sterile prep and sterile drape utilizing standard sterile technique the superficial skin of the left subclavian area was anesthetized. The target vessel was identified and entered with an 18-gauge needle. Dark venous blood return was noted. A guidewire was inserted through the needle and into the vessel. The needle was withdrawn and a skin joyce was made. A tissue dilator was advanced via Seldinger technique and removed. A triple lumen catheter was inserted via Seldinger technique and the guidewire removed. All ports giacomo and flushed easily. A Biopatch was placed, and the catheter was secured via silk suture and commercial securement device. A sterile dressing was then applied. Complications: None Estimated blood loss: Trace Patient tolerated the procedure well. Chest x-ray reviewed Coding CPT Codes Tubes, Drains, and Vasc Access - Tubes, Drains, and Vasc Access: [id number] Insertion Of Non-tunneled Catheter Age 4 Yrs> ([id number]) [facility] [place] Codes (Charges) Tubes, Drains, and Vasc Access Procedure 1: Tubes, Drains, and Vasc Access: [id number] Insertion Of Non-tunneled Catheter Age 4 Yrs>
--- NOTE | 2022-02-20 15:58 | Procedure Note ---
Procedure Note Date of Service February 20, 2022 Note Procedure Date: Noted above Procedure: Lumbar puncture Pre-procedure Diagnosis: Altered mental status with possible new onset seizure Post-procedure Diagnosis: same as above Prior to Procedure: Informed Consent: The risks, benefits, indications, potential complications, and alternatives were explained to the patient's son and verbal informed consent obtained. Attending Staff: Marine Lee DO Resident/Physician Dietetic Technician: Emily Indications: Patient is a 66-year-old female with altered mental status, fever, possible new onset seizure requiring lumbar puncture The identity of the patient was confirmed and a bedside time out was performed. Description of Procedure: Patient was positioned in the right lateral decubitus position, prepped and draped in usual sterile fashion. The L4-5 space located with bilateral iliac crests as landmarks. 1% Lidocaine without epinephrine was used to anesthetize the area. A 18 gauge spinal needle was introduced into the subarachnoid space. Stylet was removed with appropriate fluid return. Needle removed after adequate fluid collected and sterile bandage placed at puncture site. 8 mL of CSF fluid collected. Fluid was clear. Specimen(s): sent for Gram Stain, culture, cell count, glucose, protein, bio fire PCR Complications: None Findings: Clear CSF Estimated Blood Loss: trace Coding CPT Codes Lumbar Puncture - Lumbar Puncture, Diagnostic: 15006 Lumbar Puncture, Diagnostic ([id number]) [facility] [place] Procedure Codes (Charges) Lumbar Puncture Lumbar Puncture, Diagnostic: 53284 Lumbar Puncture, Diagnostic
[2022-02-20] MEDS ORDERED: ACYCLOVIR SOD IV SCH (16:00)
[2022-02-20] MEDS ORDERED: cefTRIAXone SODIUM 2,000 MG in DEXTROSE 5% 50 ML IV SCH (16:00)
[2022-02-20] MEDS ORDERED: DEXTROSE 5% IV SCH (16:00)
--- NOTE | 2022-02-20 16:03 | Procedure Note ---
Procedure Note Date of Service February 20, 2022 15:15 Note INTUBATION PROCEDURE NOTE: Attending: Dr. Mika Lee Emergent procedure, verbal consent obtained from son by Dr. Lee. Patient was evaluated and required intubation for Encephalopathy with obtundation, hypercarbic respiratory failure with acidosis Sedative agent used: Propofol Paralysis agent used: Rocuronium Emergent consent was implied given patients rapidly declining clinical status and need for airway protection. The patient was prepared in the appropriate fashion. Sedation was achieved utilizing Propofol and Rocuronium, per Dr. Lee's administration. The patient was easily ventilated using [id number] to achieve adequate oxygenation. GlideScope was with full visual field of the epiglottis and vocal chords. A 7.5 Cymraes endotracheal tube was placed to 22 cm at the lip. The stylette was removed and balloon was inflated with 10mL of air. Appropriate Colorimetric change was appreciated. Bilateral breath sounds were heard without air sounds in the abdomen. Dr. Lee was present for the entire procedure. X Post Intubation Chest X-ray confirms placement without pneumothorax. Patient tolerated the procedure well and there were no immediate complications. Supervising Physician Co-Signing Physician Notes I was present and assisted with the entire procedure Coding
--- NOTE | 2022-02-20 16:11 | Critical Care Consultation ---
Date of Consultation February 20, 2022 Assessment & Plan (1) Acute encephalopathy: Reason Critically Ill: 66-year-old female with acute on chronic hypoxic and hypercapnic respiratory failure with possible seizure-like activity who has not returned to baseline PLAN: Neuro: Acute encephalopathy Seizure-like activity -CT head reviewed, LP completed -Stat EEG rule out nonconvulsive status as patient has not returned to baseline -MRI with and without contrast -Discontinue tramadol History obstructive sleep apnea: Nightly BiPAP when extubated Chronic back pain Resp: Acute on chronic hypoxic and hypercapnic respiratory failure -Goal oxygen saturations 88-92, wears baseline 4 to 6 L oxygen -Bio fire PCR CV: Hypertension -Unclear etiology, no history on primary care notes -No indication to treat at this time Fluids/Renal: Acute kidney injury on chronic kidney disease -Baseline appears around 0.9-1 Hyperkalemia: Mild -repeat BMP later ID: Febrile illness -Cultures pending: Blood, CSF, urine, sputum, meningitis bio fire and respiratory bio fire ordered Mastoiditis noted on CT scan Right maxillary sinusitis noted on CT scan -Would continue acyclovir at the present moment, cefepime and doxycycline for pulmonary pathogens -Lyme and GI/Nutrition: Hypertriglyceridemia: On pravastatin N.p.o. Heme: Leukocytosis: Mild History of anemia DVT prophylaxis: Heparin 5K TID Endocrine: ICU hyperglycemia protocol Diabetes mellitus type 2 -Insulin sliding scale Vascular access: Left subclavian placed 02/20 Code Status: Full code Disposition: ICU (2) Seizure-like activity: (3) Acute and chronic respiratory failure with hypoxia: (4) Chronic kidney disease, stage 3a: (5) COPD (chronic obstructive pulmonary disease): Supervising Physician Co-Signing Physician Notes I have personally spent 70 minutes of critical care time in the direct management of this patient. This is a life/limb threatening event. This includes time spent evaluating patient, direct bedside care, chart review, placing orders, interpretation of diagnostic studies, discussion with consul tants, patient, and/or family members regarding treatment decisions, as well as other required patient management activities. This time is exclusive of all separately billable procedures, and teaching time and separate from and in addition to any other critical care service time. History of Present Illness Reason for Consultation: Acute encephalopathy, fever History of Present Illness History is obtained from the patient's son and prior records Patient is a 66-year-old female who resides with her son and [id number] who has a significant past medical history of severe COPD requiring 4 to 6 L of oxygen who ambulates with the assistance of a walker. Patient was reported normal this morning and then when sleeping on the couch she was noted to have a generalized seizure. When EMS arrived they were unable to get an IV and placed an interosseous line. She reportedly had generalized tonic-like movements for which she received Ativan and then was brought to the ED for further evaluation. Allergies Allergy/AdvReac Type Severity Reaction Status Date / Time codeine AdvReac Mild SHAKING Verified 01/07/22 13:18 oxycodone AdvReac Unknown rash/shakes Verified 01/07/22 13:18 Home Medications Medication Instructions Recorded Confirmed Type carvedilol 6.25 mg tablet 6.25 mg PO BID #30 tab 11/06/20 01/07/22 Rx folic acid 400 mcg tablet 400 mcg PO QAM #30 tab 11/06/20 01/07/22 Rx aspirin 81 mg tablet,delayed 81 mg PO DAILY 12/01/20 01/07/22 History release metformin 1,000 mg tablet 1,000 mg PO BID #180 tab 09/27/21 01/07/22 Rx pravastatin 80 mg tablet 80 mg PO DAILY #90 tab 09/30/21 01/07/22 Rx docusate sodium 100 mg capsule 100 mg PO BID #180 cap 10/05/21 01/07/22 Rx miconazole nitrate 2 % topical 1 spray TOPICAL BID PRN 10/27/21 01/07/22 History spray powder polyethylene glycol 3350 17 17 g PO DAILY PRN 10/27/21 01/07/22 History gram/dose oral powder (Miralax) sennosides 8.6 mg tablet 8.6 - 17.2 mg PO HS 10/27/21 01/07/22 History simethicone 80 mg chewable tablet 80 mg PO DIRECTED PRN 10/27/21 01/07/22 History fluticasone propionate 50 2 spray INTRANASAL DAILY PRN #15.8 11/08/21 01/07/22 Rx mcg/actuation nasal ml spray,suspension (Flonase Allergy Relief) ipratropium bromide 0.02 % 2.5 ml INHALATION QID #187.5 ml 11/18/21 01/07/22 Rx solution for inhalation albuterol sulfate 2.5 mg INHALATION Q4H PRN #300 ml 12/03/21 01/07/22 Rx budesonide 0.5 mg/2 mL suspension 0.5 mg INHALATION BID #120 ml 12/03/21 01/07/22 Rx for nebulization pantoprazole 40 mg tablet,delayed 40 mg PO DAILY #90 tab 12/03/21 01/07/22 Rx release glycopyrrolate 9 mcg-formoterol 2 puff INHALATION BID #10.7 g 12/06/21 01/07/22 Rx 4.8 mcg HFA aerosol inhaler (Bevespi Aerosphere) loratadine 10 mg tablet (Claritin) 10 mg PO DAILY #30 tab 12/29/21 01/07/22 Rx tramadol 50 mg tablet 50 mg PO TID PRN #90 tab 01/17/22 Rx albuterol sulfate 90 mcg/actuation 2 inh INH QID PRN #8.5 g 01/26/22 Rx aerosol inhaler (Ventolin HFA) baclofen 10 mg tablet 10 mg PO TID PRN #90 tab 02/09/22 Rx Patient History Medical History (Updated 02/20/22 @ 16:12 by Mika Lee DO) Acute and chronic respiratory failure with hypoxia (10/2021) Anemia Chronic back pain Chronic respiratory failure Chronic venous insufficiency Colonic dysmotility COVID-19 Hypercapnic respiratory failure Hypertension Ileus Lymphedema Osteoporosis Pulmonary nodules Vitamin D deficiency Surgical History History of cholecystectomy Hx of umbilical hernia repair Family History Sister Colorectal cancer Breast cancer Denies family history of Ovarian cancer Prostate cancer Myocardial infarction Social History Smoking Status: Unknown if ever smoked Tobacco Type: Cigarettes Age Started Using Tobacco: 17; Age Quit Using Tobacco: 49; packs per day: 2; Cigarettes Per Day: 2 ppd quit 15 yrs ago; Second Hand Exposure: No; Hx Alcohol Use: No Hx Substance Use: No Preferred Language: Yemeni Visual Impairment: Limited Hearing Ability: Normal Rn Endoscopy Required: No Beliefs That Will Affect Care: None marital status: Current Living Situation: Family Current Living Situation Comment: Lives with son current occupational status: retired Feels Safe at Home: Yes Childhood Exposure to Second-Hand Smoke: No caffeine: Yes (coffee x 1 per day Iced tea x 1 glass per day.) during the past year weight has: remained stable Dental Care, Regularly: No Physical Activity Frequency: Does not Exercise Seatbelt Use: never Sunscreen Use: No Assistive Devices: Oxygen - Continuous and Walker Review of Systems Review of Systems: Unobtainable due to endotracheal tube and Unobtainable due to reduced consciousness Physical Exam Physical Exam: General: GCS: 3 not responsive to painful stimuli Skin: Warm, dry, areas of ecchymoses around the patient Head: Atraumatic Ears, nose, mouth and throat: BiPAP mask in place Cardiovascular: Normal peripheral perfusion Respiratory: Distant breath sounds, scattered rhonchi Gastrointestinal: Non distended Musculoskeletal: No deformity Results & Data Results & Data ([facility]) Vital Signs (Past 12 Hours) Vital Signs Temp Pulse Resp BP Pulse Ox 02/20/22 15:43 120 H 18 100 02/20/22 14:58 111 H 17 100 02/20/22 14:16 107 H 14 97 02/20/22 14:15 109 H 18 100 02/20/22 14:11 107 H 26 H 100 02/20/22 14:10 107 H 15 100 02/20/22 14:06 107 H 17 96 02/20/22 14:05 105 H 18 99 02/20/22 14:01 109 H 19 162/137 H 100 02/20/22 14:00 109 H 19 99 02/20/22 13:55 109 H 19 100 02/20/22 13:50 108 H 16 100 02/20/22 13:46 109 H 18 177/108 H 100 02/20/22 13:45 110 H 16 100 02/20/22 13:40 113 H 19 100 02/20/22 13:35 113 H 22 02/20/22 13:34 113 H 18 02/20/22 13:05 29 H 94 02/20/22 13:01 192/165 H 02/20/22 13:00 133 H 21 74 L 02/20/22 12:50 135 H 19 93 02/20/22 12:45 145 H 22 95 02/20/22 12:40 146 H 30 H 02/20/22 12:35 149 H 22 02/20/22 12:30 147 H 23 02/20/22 12:25 146 H 18 95 02/20/22 12:20 151 H 22 71 L 02/20/22 12:19 151 H 13 192/156 H 74 L 02/20/22 12:18 150 H 17 02/20/22 12:15 38 C H 151 H 13 192/156 H 74 L Critical Care Results & Data Vital Signs (Past 12 Hours) Vital Signs Temp Pulse Resp BP Pulse Ox 02/20/22 15:55 117 H 18 100 02/20/22 15:50 118 H 18 100 02/20/22 15:45 119 H 18 116/68 100 02/20/22 15:43 120 H 18 100 02/20/22 15:40 120 H 13 100 02/20/22 15:38 122 H 12 137/86 100 02/20/22 15:35 125 H 12 02/20/22 15:30 127 H 12 02/20/22 15:25 124 H 12 100 02/20/22 15:20 128 H 14 100 02/20/22 15:15 127 H 18 73 L 02/20/22 15:10 115 H 18 100 02/20/22 15:05 111 H 15 99 02/20/22 15:00 109 H 16 97 02/20/22 14:58 111 H 17 100 02/20/22 14:55 109 H 14 100 02/20/22 14:50 105 H 16 98 02/20/22 14:46 108 H 16 99 02/20/22 14:45 105 H 23 100 02/20/22 14:40 103 H 13 100 02/20/22 14:35 105 H 14 98 02/20/22 14:31 108 H 17 145/106 H 99 02/20/22 14:30 107 H 17 100 02/20/22 14:29 107 H 18 161/112 H 99 02/20/22 14:25 126 H 22 98 02/20/22 14:21 113 H 23 91/68 L 95 02/20/22 14:20 113 H 24 97 02/20/22 14:16 107 H 14 97 02/20/22 14:15 109 H 18 100 02/20/22 14:11 107 H 26 H 100 02/20/22 14:10 107 H 15 100 02/20/22 14:06 107 H 17 96 02/20/22 14:05 105 H 18 99 02/20/22 14:01 109 H 19 162/137 H 100 02/20/22 14:00 109 H 19 99 02/20/22 13:55 109 H 19 100 02/20/22 13:50 108 H 16 100 02/20/22 13:46 109 H 18 177/108 H 100 02/20/22 13:45 110 H 16 100 02/20/22 13:40 113 H 19 100 02/20/22 13:35 113 H 22 02/20/22 13:34 113 H 18 02/20/22 13:05 29 H 94 02/20/22 13:01 192/165 H 02/20/22 13:00 133 H 21 74 L 02/20/22 12:50 135 H 19 93 02/20/22 12:45 145 H 22 95 02/20/22 12:40 146 H 30 H 02/20/22 12:35 149 H 22 02/20/22 12:30 147 H 23 02/20/22 12:25 146 H 18 95 02/20/22 12:20 151 H 22 71 L 02/20/22 12:19 151 H 13 192/156 H 74 L 02/20/22 12:18 150 H 17 02/20/22 12:15 38 C H 151 H 13 192/156 H 74 L Lab & Micro Results (Past 24 Hours) RBC 4.68 M/uL (4.2-5.4) 02/20/22 WBC 11.56 K/uL (4.8-10.8) H 02/20/22 Hgb 13.4 g/dL (12.0-16.0) 02/20/22 Hct 41.4 % (37-47) 02/20/22 MCV 88.5 fL (80-100) 02/20/22 MCH 28.6 pg (25-34) 02/20/22 MCHC 32.4 g/dL (32-36) 02/20/22 RDW Standard Deviation 43.3 fL (36.4-46.3) 02/20/22 RDW Coefficient of Variation 13.3 % (11.5-14.5) 02/20/22 Plt Count 180 K/uL (130-400) 02/20/22 MPV 11.4 fL (7.4-10.4) H 02/20/22 Neutrophils (%) (Auto) 83.0 % 02/20/22 Lymphocytes (%) (Auto) 13.4 % 02/20/22 Monocytes # (Auto) 0.22 K/uL (0.11-0.59) 02/20/22 Eosinophils # (Auto) 0.13 K/uL (0-0.5) 02/20/22 Immature Granulocyte % (Auto) 0.3 % 02/20/22 Neutrophils # (Auto) 9.59 K/uL (1.4-6.5) H 02/20/22 Lymphocytes # (Auto) 1.55 K/uL (1.2-3.4) 02/20/22 Monocytes # (Auto) 0.22 K/uL (0.11-0.59) 02/20/22 Eosinophils # (Auto) 0.13 K/uL (0-0.5) 02/20/22 Basophils # (Auto) 0.04 K/uL (0-0.2) 02/20/22 Immature Granulocyte # (Auto) 0.03 K/uL (0.00-0.02) H 02/20/22 Na 140 mmol/L (136-145) 02/20/22 K 5.8 mmol/L (3.5-5.1) H 02/20/22 Cl 96 mmol/L (98-107) L 02/20/22 CO2 32 mmol/L (21-32) 02/20/22 Anion Gap 12 (3-11) H 02/20/22 BUN 30 mg/dl (6-23) H 02/20/22 Creatinine 1.38 mg/dl (0.6-1.2) H 02/20/22 Estimated GFR ( Amer) 45.7 ml/min 02/20/22 Estimated GFR (Non-Af Amer) 39.5 ml/min 02/20/22 BUN/Creatinine Ratio 21.7 (10-20) H 02/20/22 Glu 156 mg/dl (70-99(Fasting)) H 02/20/22 Ca 10.2 mg/dl (8.5-10.1) H 02/20/22 Total Bilirubin 0.3 mg/dl (0.2-1.0) 02/20/22 AST 19 U/L (13-39) 02/20/22 ALT 13 U/L (7-52) 02/20/22 Alkaline Phosphatase 69 U/L (34-104) 02/20/22 TP 7.2 gm/dl (6.0-8.3) 02/20/22 Albumin 4.2 gm/dl (3.4-5.0) 02/20/22 Globulin 3.0 gm/dl (2.5-4.0) 02/20/22 Albumin/Globulin Ratio 1.4 (0.9-2) 02/20/22 Mg 1.7 mg/dl (1.7-2.4) 02/20/22 12:30 02/20/22 Calcium Level 10.2 mg/dl (8.5-10.1) H 02/20/22 12:30 02/20/22 Prothromb Time International Ratio 0.9 (0.9-1.1) 02/20/22 12:30 02/20/22 Venous Blood pH 7.18 (7.36-7.41) L 02/20/22 13:43 02/20/22 Venous Blood Partial Pressure CO2 87 mmHg (38-50) H 02/20/22 13:43 02/20/22 Venous Blood Partial Pressure O2 27 mmHg 02/20/22 13:43 02/20/22 Venous Blood HCO3 32 mmol/L 02/20/22 13:43 02/20/22 Venous Blood Base Excess 0.7 mEq/L 02/20/22 13:43 02/20/22 Venous Blood Oxygen Saturation < 60.0 % 02/20/22 13:43 02/20/22 Blood Gas Barometric Pressure 731.7 mm/Hg 02/20/22 13:43 02/20/22 Blood Gas Barometric Pressure 731.7 mm/Hg 02/20/22 13:43 02/20/22 Diagnostic Findings (Past 24 Hours) Chest X-Ray 02/20/22 12:19 XR chest 1V portable CLINICAL HISTORY: sz. Evaluate cardiopulmonary status COMPARISON STUDY: 11/02/2021 TECHNIQUE: 1 view of the chest FINDINGS: Single frontal view of the chest demonstrates the cardiomediastinal silhouette to be within normal limits. The patient is rotated to the right. There is hyperinflation of the lungs with attenuation of the pulmonary vasculature peripherally characteristic of underlying chronic obstructive pulmonary disease. The lungs are clear of alveolar opacities. There is no evidence for pleural effusion. There is no evidence for vascular congestion. There is no acute osseous pathology. IMPRESSION: 1. No acute cardiopulmonary disease. 2. Underlying COPD. ACT 112: Negative or not required by law. Electronically signed by: Willy Valdes M.D. 02/20/2022 1:[address] 02/20/22 12:21 CT head/brain wo con CLINICAL HISTORY: sz COMPARISON STUDY: 10/21/2020 CT DOSE: 2710.81 mGy.cm TECHNIQUE: Standard CT of the Brain was performed without IV contrast. A dose lowering technique was utilized adhering to the principles of ALARA. FINDINGS: There is patient motion artifact present. Extraaxial space: There is no evidence for subdural hematoma. There are no extra-axial fluid collections. Ventricles and cisterns: The ventricles are normal in size and configuration. There is no evidence for midline shift or mass effect. Parenchyma: There is no subarachnoid or intraparenchymal hemorrhage. There is no evidence for an acute infarct or cerebral edema. There is homogeneous attenuation of the brain parenchyma. There are no gross mass lesions. Osseous structures: There is no evidence for an acute fracture. There is mucosal thickening in the right maxillary antrum. The remaining visualized paranasal sinuses are clear. There is diffuse mucosal thickening of the right mastoid air cells and compared to the left. Soft tissues: There is no evidence for focal soft tissue swelling. IMPRESSION: 1. No acute intracerebral pathology. 2. Right maxillary sinusitis. 3. Right mastoiditis ACT 112: Negative or not required by law. Electronically signed by: Willy Valdes M.D. 02/20/2022 1:38 PM Chest CTA 02/20/22 13:17 CT angio chest PE protocol CLINICAL HISTORY: Difficulty breathing COMPARISON STUDY: Portable chest from 02/18/2022 CT DOSE: 687.16 mGy.cm TECHNIQUE: CT Angio of the chest was performed.followed by image post processing with coronal, and sagittal MIP reformats. Contrast Volume: Optiray 320, 119 ml FINDINGS: Vasculature: There is homogeneous perfusion of the pulmonary vasculature bilaterally. No intraluminal filling defects or evidence for pulmonary embolus is seen. Airway: The airway is clear. No endobronchial lesion is identified. Lungs: There is mild to moderate centrilobular emphysematous changes present. There is a 1.2 cm subpleural nodular density seen involving the right lower lobe is noted on image 83. Branching parenchymal density seen within the right middle lobe characteristic of scarring. The lungs are otherwise clear of acute alveolar opacities, air bronchograms or additional pulmonary nodules. Pleura: There is no evidence for pleural effusion. There is no evidence for pneumothorax. Mediastinum: There is no evidence for pathologic adenopathy. There is a sco liotic curve with displacement of the heart to the left. The heart size is within normal limits. There is mild coronary artery calcification. The thoracic aorta is within normal limits. There is no evidence for pericardial effusion. Upper abdomen:The adrenal glands are normal bilaterally. Osseous structures: There is no acute osseous pathology. Impression: 1. No CTA evidence for pulmonary embolus. 2. No acute chest disease. 3. Mild to moderate centrilobular emphysematous changes with right lower lobe pulmonary nodule. Follow-up CT chest in 3-6 months recommended for further evaluation. ACT 112: Positive. There are findings on this exam that require communication between the performing entity and the patient following Patient Test Result Information Act ([place] Act 112) guidelines. Electronically signed by: Willy Valdes M.D. 02/20/2022 1:48 PM Chest X-Ray 02/20/22 15:18 XR chest 1V portable CLINICAL HISTORY: Status post intubation. COMPARISON STUDY: 02/20/2022 at 1252 hours TECHNIQUE: 1 view of the chest FINDINGS: Single frontal view of the chest demonstrates the cardiomediastinal silhouette to be within normal limits. Endotracheal tube has been place with its tip approximately 2.6 cm above the erik. NG tube extends below the edge of the film and into the stomach. The lungs are clear of alveolar opacities. There is no evidence for pleural effusion. There is no evidence for vascular congestion. There is no acute osseous pathology. IMPRESSION: 1. No acute cardiopulmonary disease. 2. Status post intubation and NG tube placement. ACT 112: Negative or not required by law. Electronically signed by: Willy Valdes M.D. 02/20/2022 3:32 PM I & O Totals 24 Hours 02/19/22 02/20/22 02/21/22 06:59 06:59 06:59 Intake Total 390 / 390 Balance 390 / 390 Cumulative 02/20/22 11:34 thru 02/20/22 15:31 Intake Total 390 Balance 390 RT Ventilator Mngmt (Last Documented) Ventilator Ordered Settings Ventilator Support Mode Assist Control 02/20/22 15:43 Respiratory Rate 18 02/20/22 15:55 Ventilator Tidal Volume 350 02/20/22 15:43 Setting Minute Ventilation 6.1 02/20/22 15:43 Positive End Expiratory 8 02/20/22 15:43 Pressure Fraction of Inspired Oxygen 40 02/20/22 15:43 Ventilator - PT Measurements Respiratory Rate 18 Exhaled Tidal Volume 342 Minute Ventilation 6.1 Peak Inspiratory Airway 23 Pressure Respiratory Cycle Inspiratory: 1:3.2 Expiratory Ratio Inspiratory Phase Time 0.8 End-Tidal CO2 57 Dynamic Lung Compliance 22.80 Normal Static Lung Compliance 46.00 Coding Level of Care Code Critical Care 1st 30-74 mins Diagnoses Acute and chronic respiratory failure with hypoxia J96.21 Acute encephalopathy G93.40 Chronic kidney disease, stage 3a N18.31 COPD (chronic obstructive pulmonary disease) J44.9 COPD type: unspecified COPD Seizure-like activity R56.9 (1) COPD (chronic obstructive pulmonary disease) COPD type: unspecified COPD Qualified Code(s): J44.9 - Chronic obstructive pulmonary disease, unspecified
[2022-02-20 16:14] LABS: Appearance CSF Clear; CSF Count Tube # 3; CSF Xanthrochromic No xanthochromia; Color CSF Colorless; Red Blood Cell CSF (A) 10 /uL (0-); Red Blood Cell CSF (B) 8 /uL (0-); White Blood Cell CSF (A) 0 /uL (0-5); White Blood Cell CSF (B) 0 /uL (0-5)
[2022-02-20 16:21] LABS: Total Protein CSF 59.2 mg/dl (15-45)
[2022-02-20] MEDS ORDERED: dexAMETHasone 6 MG in SYRINGE 0 ML IV ONE (16:43)
--- NOTE | 2022-02-20 16:45 | Pharmacy Report ---
Pharmacy Vanc AUC Short Note - Date of Service February 20, 2022 - Assessment & Plan Assessment 66 year old F receiving vancomycin, ceftriaxone, and acyclovir in the setting of acute encephalopathy for HAIR [employer] W[employer]ER coverage. Blood and urine cultures pending. CSF studies pending. Slight GERALD, SCr -1.38 (baseline ~ 1). Day #1 of antimicrobial therapy. Plan Vancomycin * AUC/JERRY is the preferred PK/PD target for vancomycin * AUC guided dosing is effective and associated with decreased risk of nephrotoxicity compared to traditional trough targets * Trough level of 18.8 mcg/mL is predicted to achieve target AUC/JERRY of 400-600 mg/L.hr and may be associated with a 15 % risk of nephrotoxicity * S/p vancomycin [place] of 1750mg IV X 1. Begin maintenance regimen of 1gm IV q18h tomorrow AM. Monitor renal function closely, will likely require adjustments given changing renal function. * Trough level to be drawn around steady state, or sooner if clinically indicated. Pharmacy will continue to follow and will adjust dose/frequency as necessary. Thank you.
--- NOTE | 2022-02-20 16:53 | History & Physical Report ---
Date of Service February 20, 2022 Assessment & Plan (1) Acute encephalopathy: Plan: Patient presents febrile and with seizure activity- she is currently obtunded and hypercarbic and acidotic - DDX: Bacterial/viral encephalitis/meningitis- hypercarbic respiratory failure- CSF obtained pending- empiric therapy- adjust when initial cultures return - Patient intubated as she is currently unable to protect her airway as well - Decadron 6mg IV now for above and COPD - EEG - stat- will continue to attempt to reach radiologic technologist- if unable to do so patient may need transferred - Toxicology screen negative (2) Seizure-like activity: Plan: Reported and witnessed by EMS - Continue Keppra post load in the EMD - EEG as above- if seizes again or remains seizing on EEG- transfer for continuous (3) Sepsis: Plan: Sepsis not requiring vasoactive support - Fever, WBC elevation, NLR elevation, Lactate normal - organdysfunction- GERALD II, elevated HScTNI, encephalopathy - ABX as documented- adjust pending CSF, Blood, Urine cultures - suspected source at this time sinusitis/mastoiditis/CSF - Continue supportive care follow (4) Acute and chronic respiratory failure with hypoxia: Plan: As above - Intubated goal SPO2 88-92% - Continue albuterol nebs and budesinide nebs - Decadron above- transition to pred tomorrow if desired - Acute on chronic hypercarbic respiratory failure in the setting of non compliant BiPAP/CPAP use at home (5) Chronic kidney disease, stage 3a: Plan: GERALD II on CKD III in the setting of sepsis/encephalopathy/hypercarbic respiratory failure GFR 30- renally dose medications- appreciate pharmacy assistance - (6) Obesity: Plan: Chronic continue with disease modyfiying meds- insulin for DM, Statin, ASA, BB - will hold for tonight and continue when appropriate (7) Hypertension: Plan: As above (8) COPD (chronic obstructive pulmonary disease): Plan: COPD exacerbation as well as noncompliance with overnight positive pressure therapy - As above- emphysema COPD - will hold her Brevspi while intubated - transition to prednisone when appropriate - son reports continued non-compliance with her BiPAP - She has history hypercarbic respiratory failure requiring intubation secondary to encephalopathy (9) Elevated troponin: Plan: 2 hour reflex from admission HScTNI increased from 25 to 102.0 - ECG without accute changes - likely related to hypoxia, hypercarbia, acidosis demand on the heart (10) Acidosis: Plan: Hypercarbic respiratory acidosis - ABG 1 hour on current ventilatory settings - HCO3 for PH <7.1 - Remains hemodynamically stable without pressors (11) Sinusitis: Plan: CSF without WBC and glucose not low - will change to Cefepime, Daptomycin for sinusitis/mastoiditis - follow blood cultures (12) Mastoiditis: Plan: As above (13) Pulmonary nodules: Plan: Right lower lobe nodule seen on CT chest Follow-up CT chest 3 months History of Present Illness Primary Care Provider: Beatriz Baker, DO 66 YOF with medical history of: COPD on home oxygen, DMII, HTN, obesity, pulmonary nodules, anemia. Patient was brought in to [facility] today via EMS, secondary to being found unresponsive this morning and seizure like activity at home. Last known well was reported at 2130 last night before she went to bed. She is accompanied by her Son, who history is obtained from. She was found unresponsive this morning with her feet hanging over the bottom of her bed and cell phone on the floor. She was aroused and then had seizure like movements of all her extremities and stiffening of her body. EMS in transport reports [facility] seizure like activity, where she was given Ativan en route. On arrival to the [facility] the patient was noted to be anxious complaining of not being able to breath and "flailing all over the bed", She was administered another 2mg Of Ativan. She also received a dose of Zosyn, and Loaded with Keppra. She had routine labs performed to include blood cultures, CXR, CT scan of the head and VBG. She was noted to be acidotic to the 7.18 range with hypercarbia of 87. Hospitalist service was consulted for admission. She was being placed on BiPAP on my arrival to the [facility], patient is obtunded not responsive. ICU was consulted for intubation, central access, and LP with her encephalopathy, seizure, and febrility. Her CT scan of her head was notable for sinusitis and mastoiditis. Patient will be treated for encephalitis/meningitis empirically while CSF cultures are pending. She was started on Rocephin, Vancomycin and Acyclovir. She will transferred to the ICU with seizure precautions, continue Keppra. COVID on admission is: NEGATIVE - respiratory bio-fire will be added Allergies Allergy/AdvReac Type Severity Reaction Status Date / Time codeine AdvReac Mild SHAKING Verified 01/07/22 13:18 oxycodone AdvReac Unknown rash/shakes Verified 01/07/22 13:18 Home Medications Medication Instructions Recorded Confirmed Type carvedilol 6.25 mg tablet 6.25 mg PO BID #30 tab 11/06/20 01/07/22 Rx folic acid 400 mcg tablet 400 mcg PO QAM #30 tab 11/06/20 01/07/22 Rx aspirin 81 mg tablet,delayed 81 mg PO DAILY 12/01/20 01/07/22 History release metformin 1,000 mg tablet 1,000 mg PO BID #180 tab 09/27/21 01/07/22 Rx pravastatin 80 mg tablet 80 mg PO DAILY #90 tab 09/30/21 01/07/22 Rx docusate sodium 100 mg capsule 100 mg PO BID #180 cap 10/05/21 01/07/22 Rx miconazole nitrate 2 % topical 1 spray TOPICAL BID PRN 10/27/21 01/07/22 History spray powder polyethylene glycol 3350 17 17 g PO DAILY PRN 10/27/21 01/07/22 History gram/dose oral powder (Miralax) sennosides 8.6 mg tablet 8.6 - 17.2 mg PO HS 10/27/21 01/07/22 History simethicone 80 mg chewable tablet 80 mg PO DIRECTED PRN 10/27/21 01/07/22 History fluticasone propionate 50 2 spray INTRANASAL DAILY PRN #15.8 11/08/21 01/07/22 Rx mcg/actuation nasal ml spray,suspension (Flonase Allergy Relief) ipratropium bromide 0.02 % 2.5 ml INHALATION QID #187.5 ml 11/18/21 01/07/22 Rx solution for inhalation albuterol sulfate 2.5 mg INHALATION Q4H PRN #300 ml 12/03/21 01/07/22 Rx budesonide 0.5 mg/2 mL suspension 0.5 mg INHALATION BID #120 ml 12/03/21 01/07/22 Rx for nebulization pantoprazole 40 mg tablet,delayed 40 mg PO DAILY #90 tab 12/03/21 01/07/22 Rx release glycopyrrolate 9 mcg-formoterol 2 puff INHALATION BID #10.7 g 12/06/21 01/07/22 Rx 4.8 mcg HFA aerosol inhaler (Bevespi Aerosphere) loratadine 10 mg tablet (Claritin) 10 mg PO DAILY #30 tab 12/29/21 01/07/22 Rx tramadol 50 mg tablet 50 mg PO TID PRN #90 tab 01/17/22 Rx albuterol sulfate 90 mcg/actuation 2 inh INH QID PRN #8.5 g 01/26/22 Rx aerosol inhaler (Ventolin HFA) baclofen 10 mg tablet 10 mg PO TID PRN #90 tab 02/09/22 Rx Past Med/Surg History Medical History Acute and chronic respiratory failure with hypoxia (10/2021) Anemia Chronic back pain Chronic respiratory failure Chronic venous insufficiency Colonic dysmotility COVID-19 Hypercapnic respiratory failure Hypertension Ileus Lymphedema Osteoporosis Pulmonary nodules Vitamin D deficiency Surgical History History of cholecystectomy Hx of umbilical hernia repair Family History Sister Colorectal cancer Breast cancer Denies family history of Ovarian cancer Prostate cancer Myocardial infarction Social History Smoking Status: Unknown if ever smoked Tobacco Type: Cigarettes Age Started Using Tobacco: 17; Age Quit Using Tobacco: 49; packs per day: 2; Cigarettes Per Day: 2 ppd quit 15 yrs ago; Second Hand Exposure: No; Hx Alcohol Use: No Hx Substance Use: No Preferred Language: Luxembourgish Visual Impairment: Limited Hearing Ability: Normal Volcanology Professor Required: No Beliefs That Will Affect Care: None marital status: Current Living Situation: Family Current Living Situation Comment: Lives with son current occupational status: retired Feels Safe at Home: Yes Childhood Exposure to Second-Hand Smoke: No caffeine: Yes (coffee x 1 per day Iced tea x 1 glass per day.) during the past year weight has: remained stable Dental Care, Regularly: No Physical Activity Frequency: Does not Exercise Seatbelt Use: never Sunscreen Use: No Assistive Devices: Oxygen - Continuous and Walker Review of Systems Review of Systems: REVIEW OF SYSTEMS: Constitutional: (+) fever, sweats or chills Eyes: No diplopia, no worsening or blurred vision ENT: normal hearing, no trouble swallowing Respiratory: (+) cough, sputum, dyspnea at rest or on exertion- non compliant with CPAP at home Cardiovascular: No chest pain, tightness or palpitations Abdomen: No pain, nausea, vomiting, diarrhea or constipation Musculoskeletal: No joint pain, calf pain, swelling Neurologic: No weakness, numbness/tingling, or balance problems Psychiatric: No anxiety or depression Skin: No rash or itch Physical Exam Physical Exam: PHYSICAL EXAM: General: obtunded Head: Normocephalic, atraumatic ENT: PERRL sluggish 3/2, EOMI, no pharyngeal exudate, mucous membranes moist, thick clear secretions Neuro: Obtunded, not following commands, grimaces face with noxious stimuli, reportedly moving all extremities prior to sedation with Ativan Chest: equal rise and fall of the chest post intubation with scattered rhonchi throughout, wheeze in bases Cardiac: Regular rate and rhythm, telemetry reviewed, skin warm dry, cap refill <3 seconds, peripheral pulses +2 no JVD, no murmur, no JVD, no edema GI: NABS x 4 quadrants, soft, nontender to palpation, no rebound, guarding or tenderness : Degroot to gravity Extremities: Normal inspection, no peripheral edema or erythema, calfs nontender to palpation Skin: bruises to arms and chest, and left neck- she is not on other blood thinning agents other than Decadron Results & Data Results & Data ([facility]) Vital Signs (Past 12 Hours) Vital Signs Temp Pulse Resp BP Pulse Ox 02/20/22 15:55 117 H 18 02/20/22 15:50 118 H 18 02/20/22 15:45 119 H 18 116/68 100 02/20/22 15:43 120 H 18 02/20/22 15:40 120 H 13 02/20/22 15:38 122 H 12 137/86 100 02/20/22 15:35 125 H 12 02/20/22 15:30 127 H 12 02/20/22 15:25 124 H 12 02/20/22 15:20 128 H 14 100 02/20/22 15:15 127 H 18 73 L 02/20/22 15:10 115 H 18 100 02/20/22 15:05 111 H 15 99 02/20/22 15:00 109 H 16 97 02/20/22 14:58 111 H 17 100 02/20/22 14:55 109 H 14 100 02/20/22 14:50 105 H 16 98 02/20/22 14:46 108 H 16 99 02/20/22 14:45 105 H 23 100 02/20/22 14:40 103 H 13 100 02/20/22 14:35 105 H 14 98 02/20/22 14:31 108 H 17 145/106 H 99 02/20/22 14:30 107 H 17 100 02/20/22 14:29 107 H 18 161/112 H 99 02/20/22 14:25 126 H 22 98 02/20/22 14:21 113 H 23 91/68 L 95 02/20/22 14:20 113 H 24 97 02/20/22 14:16 107 H 14 97 02/20/22 14:15 109 H 18 100 02/20/22 14:11 107 H 26 H 100 02/20/22 14:10 107 H 15 100 02/20/22 14:06 107 H 17 96 02/20/22 14:05 105 H 18 99 02/20/22 14:01 109 H 19 162/137 H 100 02/20/22 14:00 109 H 19 99 02/20/22 13:55 109 H 19 100 02/20/22 13:50 108 H 16 100 02/20/22 13:46 109 H 18 177/108 H 100 02/20/22 13:45 110 H 16 100 02/20/22 13:40 113 H 19 100 02/20/22 13:35 113 H 22 02/20/22 13:34 113 H 18 02/20/22 13:05 29 H 94 02/20/22 13:01 192/165 H 02/20/22 13:00 133 H 21 74 L 02/20/22 12:50 135 H 19 93 02/20/22 12:45 145 H 22 95 02/20/22 12:40 146 H 30 H 02/20/22 12:35 149 H 22 02/20/22 12:30 147 H 23 02/20/22 12:25 146 H 18 95 02/20/22 12:20 151 H 22 71 L 02/20/22 12:19 151 H 13 192/156 H 74 L 02/20/22 12:18 150 H 17 02/20/22 12:15 38 C H 151 H 13 192/156 H 74 L Laboratory Results Abnormal lab results 02/20/22 02/20/22 02/20/22 Range/Units 12:30 12:30 12:30 WBC (4.8-10.8) K/uL MPV (7.4-10.4) fL Neut # (Auto) (1.4-6.5) K/uL Immature Gran # (Auto) (0.00-0.02) K/uL APTT < 20.0 L (21.0-31.0) Seconds VBG pH (7.36-7.41) VBG pCO2 (38-50) mmHg POC Potassium (3.3-5.0) mmol/L Potassium 5.8 H (3.5-5.1) mmol/L POC Chloride (101-112) mmol/L Chloride 96 L (98-107) mmol/L POC Total CO2 (24-31) mmol/L Anion Gap 12 H (3-11) POC Anion Gap (16-25) mmol/L POC BUN (7-18) mg/dl BUN 30 H (6-23) mg/dl Creatinine 1.38 H (0.6-1.2) mg/dl POC Creatinine (0.6-1.3) mg/dl BUN/Creatinine Ratio 21.7 H (10-20) Glucose 156 H (70-99(Fasting)) mg/dl POC Glucose (other) (70-99) mg/dl Calcium 10.2 H (8.5-10.1) mg/dl Troponin I High Sens 25.2 H (0-14) pg/ml Urine Protein (Negative) Urine Ketones (Negative) Ur Leukocyte Esterase (Negative) Urine WBC (Auto) (0-5) /hpf Urine RBC (Auto) (0-4) /hpf U Epithel Cells (Auto) (0-5) /lpf Urine Bacteria (Auto) (Negative) CSF Glucose (40-70) mg/dl CSF Total Protein (15-45) mg/dl Salicylates < 3.0 L (3.0-30) mg/dl Acetaminophen < 3 L (10-30) ug/ml 02/20/22 02/20/22 02/20/22 Range/Units 12:30 12:30 12:35 WBC 11.56 H (4.8-10.8) K/uL MPV 11.4 H (7.4-10.4) fL Neut # (Auto) 9.59 H (1.4-6.5) K/uL Immature Gran # (Auto) 0.03 H (0.00-0.02) K/uL APTT (21.0-31.0) Seconds VBG pH (7.36-7.41) VBG pCO2 (38-50) mmHg POC Potassium 5.7 H (3.3-5.0) mmol/L Potassium (3.5-5.1) mmol/L POC Chloride 97 L (101-112) mmol/L Chloride (98-107) mmol/L POC Total CO2 33 H (24-31) mmol/L Anion Gap (3-11) POC Anion Gap 14.0 L (16-25) mmol/L POC BUN 31 H (7-18) mg/dl BUN (6-23) mg/dl Creatinine (0.6-1.2) mg/dl POC Creatinine 1.4 H (0.6-1.3) mg/dl BUN/Creatinine Ratio (10-20) Glucose (70-99(Fasting)) mg/dl POC Glucose (other) 168 H (70-99) mg/dl Calcium (8.5-10.1) mg/dl Troponin I High Sens (0-14) pg/ml Urine Protein 1+ H (Negative) Urine Ketones Trace H (Negative) Ur Leukocyte Esterase 1+ H (Negative) Urine WBC (Auto) 10-30 H (0-5) /hpf Urine RBC (Auto) 5-10 H (0-4) /hpf U Epithel Cells (Auto) >30 H (0-5) /lpf Urine Bacteria (Auto) 1+ H (Negative) CSF Glucose (40-70) mg/dl CSF Total Protein (15-45) mg/dl Salicylates (3.0-30) mg/dl Acetaminophen (10-30) ug/ml 02/20/22 02/20/22 Range/Units 13:43 15:30 WBC (4.8-10.8) K/uL MPV (7.4-10.4) fL Neut # (Auto) (1.4-6.5) K/uL Immature Gran # (Auto) (0.00-0.02) K/uL APTT (21.0-31.0) Seconds VBG pH 7.18 L (7.36-7.41) VBG pCO2 87 H (38-50) mmHg POC Potassium (3.3-5.0) mmol/L Potassium (3.5-5.1) mmol/L POC Chloride (101-112) mmol/L Chloride (98-107) mmol/L POC Total CO2 (24-31) mmol/L Anion Gap (3-11) POC Anion Gap (16-25) mmol/L POC BUN (7-18) mg/dl BUN (6-23) mg/dl Creatinine (0.6-1.2) mg/dl POC Creatinine (0.6-1.3) mg/dl BUN/Creatinine Ratio (10-20) Glucose (70-99(Fasting)) mg/dl POC Glucose (other) (70-99) mg/dl Calcium (8.5-10.1) mg/dl Troponin I High Sens (0-14) pg/ml Urine Protein (Negative) Urine Ketones (Negative) Ur Leukocyte Esterase (Negative) Urine WBC (Auto) (0-5) /hpf Urine RBC (Auto) (0-4) /hpf U Epithel Cells (Auto) (0-5) /lpf Urine Bacteria (Auto) (Negative) CSF Glucose 92 H (40-70) mg/dl CSF Total Protein 59.2 H (15-45) mg/dl Salicylates (3.0-30) mg/dl Acetaminophen (10-30) ug/ml Diagnostic Findings Chest X-Ray 02/20/22 12:19 XR chest 1V portable CLINICAL HISTORY: sz. Evaluate cardiopulmonary status COMPARISON STUDY: 11/02/2021 TECHNIQUE: 1 view of the chest FINDINGS: Single frontal view of the chest demonstrates the cardiomediastinal silhouette to be within normal limits. The patient is rotated to the right. There is hyperinflation of the lungs with attenuation of the pulmonary vasculature peripherally characteristic of underlying chronic obstructive pulmonary disease. The lungs are clear of alveolar opacities. There is no evidence for pleural effusion. There is no evidence for vascular congestion. There is no acute osseous pathology. IMPRESSION: 1. No acute cardiopulmonary disease. 2. Underlying COPD. ACT 112: Negative or not required by law. Electronically signed by: Willy Valdes M.D. 02/20/2022 1:[address] 02/20/22 12:21 CT head/brain wo con CLINICAL HISTORY: sz COMPARISON STUDY: 10/21/2020 CT DOSE: 2710.81 mGy.cm TECHNIQUE: Standard CT of the Brain was performed without IV contrast. A dose lowering technique was utilized adhering to the principles of ALARA. FINDINGS: There is patient motion artifact present. Extraaxial space: There is no evidence for subdural hematoma. There are no extra-axial fluid collections. Ventricles and cisterns: The ventricles are normal in size and configuration. There is no evidence for midline shift or mass effect. Parenchyma: There is no subarachnoid or intraparenchymal hemorrhage. There is no evidence for an acute infarct or cerebral edema. There is homogeneous att enuation of the brain parenchyma. There are no gross mass lesions. Osseous structures: There is no evidence for an acute fracture. There is mucosal thickening in the right maxillary antrum. The remaining visualized paranasal sinuses are clear. There is diffuse mucosal thickening of the right mastoid air cells and compared to the left. Soft tissues: There is no evidence for focal soft tissue swelling. IMPRESSION: 1. No acute intracerebral pathology. 2. Right maxillary sinusitis. 3. Right mastoiditis ACT 112: Negative or not required by law. Electronically signed by: Willy Valeds M.D. 02/20/2022 1:38 PM Chest CTA 02/20/22 13:17 CT angio chest PE protocol CLINICAL HISTORY: Difficulty breathing COMPARISON STUDY: Portable chest from 02/18/2022 CT DOSE: 687.16 mGy.cm TECHNIQUE: CT Angio of the chest was performed.followed by image post processing with coronal, and sagittal MIP reformats. Contrast Volume: Optiray 320, 119 ml FINDINGS: Vasculature: There is homogeneous perfusion of the pulmonary vasculature bilaterally. No intraluminal filling defects or evidence for pulmonary embolus is seen. Airway: The airway is clear. No endobronchial lesion is identified. Lungs: There is mild to moderate centrilobular emphysematous changes present. There is a 1.2 cm subpleural nodular density seen involving the right lower lobe is noted on image 83. Branching parenchymal density seen within the right middle lobe characteristic of scarring. The lungs are otherwise clear of acute alveolar opacities, air bronchograms or additional pulmonary nodules. Pleura: There is no evidence for pleural effusion. There is no evidence for pneumothorax. Mediastinum: There is no evidence for pathologic adenopathy. There is a scolioti c curve with displacement of the heart to the left. The heart size is within normal limits. There is mild coronary artery calcification. The thoracic aorta is within normal limits. There is no evidence for pericardial effusion. Upper abdomen:The adrenal glands are normal bilaterally. Osseous structures: There is no acute osseous pathology. Impression: 1. No CTA evidence for pulmonary embolus. 2. No acute chest disease. 3. Mild to moderate centrilobular emphysematous changes with right lower lobe pulmonary nodule. Follow-up CT chest in 3-6 months recommended for further evaluation. ACT 112: Positive. There are findings on this exam that require communication between the performing entity and the patient following Patient Test Result Information Act ([place] Act 112) guidelines. Electronically signed by: Willy Valdes M.D. 02/20/2022 1:48 PM Chest X-Ray 02/20/22 15:18 XR chest 1V portable CLINICAL HISTORY: Status post intubation. COMPARISON STUDY: 02/20/2022 at 1252 hours TECHNIQUE: 1 view of the chest FINDINGS: Single frontal view of the chest demonstrates the cardiomediastinal silhouette to be within normal limits. Endotracheal tube has been place with its tip approximately 2.6 cm above the erik. NG tube extends below the edge of the film and into the stomach. The lungs are clear of alveolar opacities. There is no evidence for pleural effusion. There is no evidence for vascular congestion. There is no acute osseous pathology. IMPRESSION: 1. No acute cardiopulmonary disease. 2. Status post intubation and NG tube placement. ACT 112: Negative or not required by law. Electronically signed by: Willy Valdes M.D. 02/20/2022 3:32 PM Medications Administered Home Medications carvedilol 6.25 mg tablet 6.25 mg PO BID #30 tab 11/06/20 [Rx Confirmed 01/07/22] folic acid 400 mcg tablet 400 mcg PO QAM #30 tab 11/06/20 [Rx Confirmed 01/07/22] aspirin 81 mg tablet,delayed release 81 mg PO DAILY 12/01/20 [History Confirmed 01/07/22] metformin 1,000 mg tablet 1,000 mg PO BID #180 tab 09/27/21 [Rx Confirmed 01/07/22] pravastatin 80 mg tablet 80 mg PO DAILY #90 tab 09/30/21 [Rx Confirmed 01/07/22] docusate sodium 100 mg capsule 100 mg PO BID #180 cap 10/05/21 [Rx Confirmed 01/07/22] miconazole nitrate 2 % topical spray powder 1 spray TOPICAL BID PRN 10/27/21 [History Confirmed 01/07/22] polyethylene glycol 3350 17 gram/dose oral powder (Miralax) 17 g PO DAILY PRN 10/27/21 [History Confirmed 01/07/22] sennosides 8.6 mg tablet 8.6 - 17.2 mg PO HS 10/27/21 [History Confirmed 01/07/22] simethicone 80 mg chewable tablet 80 mg PO DIRECTED PRN 10/27/21 [History Confirmed 01/07/22] fluticasone propionate 50 mcg/actuation nasal spray,suspension (Flonase Allergy Relief) 2 spray INTRANASAL DAILY PRN #15.8 ml 11/08/21 [Rx Confirmed 01/07/22] ipratropium bromide 0.02 % solution for inhalation 2.5 ml INHALATION QID #187.5 ml 11/18/21 [Rx Confirmed 01/07/22] albuterol sulfate 2.5 mg INHALATION Q4H PRN #300 ml 12/03/21 [Rx Confirmed 01/07/22] budesonide 0.5 mg/2 mL suspension for nebulization 0.5 mg INHALATION BID #120 ml 12/03/21 [Rx Confirmed 01/07/22] pantoprazole 40 mg tablet,delayed release 40 mg PO DAILY #90 tab 12/03/21 [Rx Confirmed 01/07/22] glycopyrrolate 9 mcg-formoterol 4.8 mcg HFA aerosol inhaler (Bevespi Aerosphere) 2 puff INHALATION BID #10.7 g 12/06/21 [Rx Confirmed 01/07/22] loratadine 10 mg tablet (Claritin) 10 mg PO DAILY #30 tab 12/29/21 [Rx Confirmed 01/07/22] tramadol 50 mg tablet 50 mg PO TID PRN #90 tab 01/17/22 [Rx] albuterol sulfate 90 mcg/actuation aerosol inhaler (Ventolin HFA) 2 inh INH QID PRN #8.5 g 01/26/22 [Rx] baclofen 10 mg tablet 10 mg PO TID PRN #90 tab 02/09/22 [Rx] Active Medications Propofol (Diprivan) 1,000 mg in 100 mls @ 9.972 mls/hr IV .Q10H2M YAN; Protocol Stop: 02/23/22 15:29 Last Admin: 02/20/22 15:31 Dose: 30 mcg/kg/min, 15 mls/hr Documented by: Vancomycin HCl 1,750 mg/ (Sodium Chloride) 535 mls @ 200 mls/hr IV NOW ONE Stop: 02/20/22 18:10 Last Admin: 02/20/22 16:24 Dose: 200 mls/hr Documented by: Ceftriaxone Sodium 2,000 mg/ (Dextrose) 70 mls @ 140 mls/hr IV Q12H YAN Stop: 03/02/22 15:59 Last Infusion: 02/20/22 16:24 Dose: Infused Documented by: Acyclovir Sodium 610 mg/ (Dextrose) 112.2 mls @ 100 mls/hr IV Q12H YAN; Protocol Stop: 03/02/22 15:59 Last Admin: 02/20/22 16:24 Dose: 100 mls/hr Documented by: Miscellaneous Information (Vancomycin Consult Active) 1 ea N/A UD PRN PRN Reason: Consult Stop: 03/22/22 15:26 Propofol (Propofol Bolus From Bag) 20 mg IV Q5M PRN PRN Reason: Sedation Stop: 02/23/22 15:18 ECG Additional Comments: Vent. Rate : 134 BPM Atrial Rate : 134 BPM P-R Int : 152 ms QRS Dur : 090 ms QT Int : 290 ms P-R-T Axes : 068 032 076 degrees QTc Int : 433 ms Poor data quality, interpretation may be adversely affected Sinus tachycardia Otherwise normal ECG When compared with ECG of 27-OCT-2021 19:39, T wave inversion no longer evident in Lateral leads Confirmed by Elías Kenean ([id number]) on 02/20/2022 3:14:25 PM Code Status & VTE Plan Code Status CODE: FULL VTE: SCDS, Heparin 5000units subq q8- start tomorrow following LP VTE Prophylaxis Plan VTE Prophylaxis will be ordered: Yes Supervising Physician Co-Signing Physician Notes EMBEDDER Supervision Note: I personally saw and examined the patient. I verified all jane points and agree with DAVID Diaz with the following exceptions and/or additions: This patient is a 66-year-old female with history of chronic hypoxic and hypercapnic respiratory failure on home O2 and noncompliance with BiPAP, CKD stage III, COPD, obesity, HTN, DM2, ROZ/obesity hypoventilation syndrome, GERD, stricture of sigmoid colon, hyperlipidemia who presents to the ER after being found obtunded at home and having 2 witnessed seizures. She was found to be febrile, tachycardic, tachypneic, confused, and with leukocytosis and sinusitis and mastoiditis on CT head. Also with acute on chronic hypercarbic respiratory failure as well as hypoxia. She was given IV Ativan and Keppra in the ER and was intubated for airway protection and ventilation. The patient was already intubated when I saw her was unable to answer questions. History as above ROS unobtainable O- Vitals reviewed Gen: Intubated, sedated with propofol HEENT: Anicteric sclerae, EOMI, PERRLA, TMs normal, EAC clear CV: Tachycardic, regular rhythm, no mgr nl S1S2, left subclavian central line in place Pulm: CTAB, ET tube in place, wcr Abd: +BS soft NT ND no masses or hernias Ext: No edema, 1+ DP pulses Skin: no rashes, warm/dry, bruising on anterior chest, plantar wart with small opening on right foot Neuro: Sedated Labs and rads, ECG reviewed A/Y-[id number]-[id number]-old female with history noted as above, here with sepsis, sinusitis, mastoiditis, seizure, acute on chronic hypoxic and hypercarbic respiratory failure requiring ventilation. Admit to ICU Neuro-continue sedation with propofol while on vent, vent to be managed by ICU Needs stat EEG, neurology consulted for seizure, continue Keppra, Ativan as needed for seizures CV-trend troponin, okay to start heparin drip if needed for NSTEMI if its been at least 1 hour since LP Pulm-continue ventilator management, follow ABG ID-Continue broad-spectrum antibiotics with cefepime and doxycycline for sinusitis and mastoiditis, consider ENT consultation. 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 Endocrine-insulin sliding scale, pharmacy consult Subclavian central line present on the left, Degroot catheter in place, right peripheral IV in the antecubital fossa, OG tube in place PG Care Time/CCT Total # of Minutes Spent Total Time Spent with Patient: Total time spent is greater than 50% in coordination of care (as documented) at patient's floor/unit and/or counseling patient: Coding Level of Care Code 96332 Initial Inpt Care Lvl 3 Diagnoses Acute encephalopathy G93.40 Seizure-like activity R56.9 Acute and chronic respiratory failure with hypoxia J96.21 Chronic kidney disease, stage 3a N18.31 Obesity E66.9 Hypertension I10 COPD (chronic obstructive pulmonary disease) J44.9 COPD type: unspecified COPD Elevated troponin R77.8 Acidosis E87.2 Sinusitis J32.9 Mastoiditis H70.90 Sepsis A41.9 Pulmonary nodules R91.8 (1) COPD (chronic obstructive pulmonary disease) COPD type: unspecified COPD Qualified Code(s): J44.9 - Chronic obstructive pulmonary disease, unspecified
[2022-02-20 17:34] LABS: Cryptococcus neoformans/ga PCR Not Detected (NotDetected); Cytomegalovirus PCR Not Detected (NotDetected); Enterovirus PCR Not Detected (NotDetected); Escherichia coli K1 PCR Not Detected (NotDetected); Haemophilius influenzae PCR Not Detected (NotDetected); Herpes Simplex Virus 1 PCR Not Detected (NotDetected); Herpes Simplex Virus 2 PCR Not Detected (NotDetected); Human Herpes Virus 6 PCR Not Detected (NotDetected); Human Parechovirus PCR Not Detected (NotDetected); Listeria monocytogenes PCR Not Detected (NotDetected); Neisseria meningitidis PCR Not Detected (NotDetected); Streptococcus agalactiae PCR Not Detected (NotDetected); Streptococcus pneumoniae PCR Not Detected (NotDetected); Varicella Zoster Virus PCR Not Detected (NotDetected)
[2022-02-20] MEDS ORDERED: GADOBUTROL 65ML VIAL IV ONE (17:40)
[2022-02-20] MEDS ORDERED: fentaNYL citrate 100 MCG/2 ML VIAL IV ONE (17:54)
[2022-02-20] MEDS ORDERED: ROCURONIUM BROMIDE 10 MG/ML 5 ML VIAL IV ONE (17:54)
[2022-02-20] MEDS ORDERED: bisacodyL 10 MG SUPP PR PRN (18:18)
[2022-02-20] MEDS ORDERED: GLUCOSE 10 TABS/TUBE PO PRN (18:18)
[2022-02-20] MEDS ORDERED: CARBOHYDRATES FOR HYPOGLYCEMIA PO PRN (18:18)
[2022-02-20] MEDS ORDERED: PHARMACY GLYCEMIC MGMT CONSULT PRN (18:18)
[2022-02-20] MEDS ORDERED: GLUCOSE 40% GEL 15 GM TUBE PO PRN (18:18)
[2022-02-20] MEDS ORDERED: ICU PROTOCOL FOR HYPERGLYCEMIA PRN (18:18)
[2022-02-20] MEDS ORDERED: DEXTROSE 50% 50 ML SYRINGE IV PRN (18:18)
[2022-02-20] MEDS ORDERED: DOCUSATE SODIUM 100 MG CAP PO PRN (18:18)
[2022-02-20] MEDS ORDERED: GLUCAGON FOR INJ 1 MG VIAL SQ PRN (18:18)
[2022-02-20] MEDS ORDERED: NOREPINEPHRINE/D5W 4 MG/250 ML IV ONE (18:34)
[2022-02-20] MEDS ORDERED: fentaNYL citrate 2,500 MCG/250 ML BAG IV ONE (18:44)
[2022-02-20] MEDS ORDERED: fentaNYL citrate 2,500 MCG/250 ML BAG IV SCH (18:51)
[2022-02-20 18:55] LABS: Lyme Ab IgG w/WB Rflx Negative (Negative); Lyme Ab IgM w/WB Rflx Negative (Negative)
[2022-02-20] MEDS ORDERED: LACTATED RINGER'S 500 ML IV ONE (18:56)
[2022-02-20] MEDS ORDERED: PANTOprazole 40 MG TAB PO SCH (19:00)
[2022-02-20] MEDS ORDERED: NOREPINEPHRINE/D5W 4 MG/250 ML PLCT IV SCH (19:00)
[2022-02-20] MEDS: NORMOSOL-R 1,000 ML IV SCH (19:05)
[2022-02-20 19:25] LABS: BUN Creatinine Ratio 22.2 (10-20); Calcium 9.2 mg/dl (8.5-10.1); Creatinine Clr Calc Pharmacy 42.2 ml/min; Est GFR (Non-African American) 40.5 ml/min; Potassium 4.9 mmol/L (3.5-5.1)
--- NOTE | 2022-02-20 19:25 | Procedure Note ---
Procedure Note Date of Service February 20, 2022 1840 Note ARTERIAL LINE PROCEDURE NOTE: Procedure: Ultrasound guided Arterial Line Placement Attending: Dr. Lee APC: Kai HERNANDEZ ([facility]) Indication: Monitoring on Pressors Anesthesia: [x]Lidocaine 1% Emergent consent implied with verbal consent obtained by Dr. Lee A time-out was completed verifying correct patient, procedure, site, positioning, and implant(s) or special equipment if applicable. Allens test was performed to ensure adequate perfusion. Patients Left wrist was prepped and draped in the usual sterile fashion. Ultrasound guidance was used to aid needle placement. A 20g Arrow arterial line was introduced into the Left radial artery, flash of blood was noted in the chamber, wire was advanced without resistance. Catheter was threaded, and the needle was removed with appropriate blood return. Good waveform was observed. The patient tolerated the procedure well. Blood Loss: Minimal Complications: None immediate complications noted Procedural Ultrasound Guidance: Procedure Date: Indication: Hemodynamic monitoring, arterial blood gas sampling, frequent blood draws Attending: Dr. Lee Coding
[2022-02-20] MEDS: CEFEPIME 2,000 MG in SYRINGE 0 ML IV SCH (19:33)
[2022-02-20] MEDS: dexAMETHasone 6 MG in SYRINGE 0 ML IV SCH (19:33)
[2022-02-20] MEDS: DOXYCYCLINE HYCLATE 100 MG in DEXTROSE 5% 100 ML IV SCH (19:34)
[2022-02-20] MEDS: BUDESONIDE 0.5 MG/2 ML VIAL (PULMICORT) INH SCH (20:00)
--- NOTE | 2022-02-20 20:00 | Electroencephalogram ---
EEG Procedure Note Date of Service February 20, 2022 Start / End Times Start Time: 06 End Time: 06 Referring Physician Mika Lee MD History seizure activity question ongoing nonconvulsive status patient intubated and paralyzed Home Medication List Medication Instructions Recorded Confirmed Type carvedilol 6.25 mg tablet 6.25 mg PO BID #30 tab 11/06/20 01/07/22 Rx folic acid 400 mcg tablet 400 mcg PO QAM #30 tab 11/06/20 01/07/22 Rx aspirin 81 mg tablet,delayed 81 mg PO DAILY 12/01/20 01/07/22 History release metformin 1,000 mg tablet 1,000 mg PO BID #180 tab 09/27/21 01/07/22 Rx pravastatin 80 mg tablet 80 mg PO DAILY #90 tab 09/30/21 01/07/22 Rx docusate sodium 100 mg capsule 100 mg PO BID #180 cap 10/05/21 01/07/22 Rx miconazole nitrate 2 % topical 1 spray TOPICAL BID PRN 10/27/21 01/07/22 History spray powder polyethylene glycol 3350 17 17 g PO DAILY PRN 10/27/21 01/07/22 History gram/dose oral powder (Miralax) sennosides 8.6 mg tablet 8.6 - 17.2 mg PO HS 10/27/21 01/07/22 History simethicone 80 mg chewable tablet 80 mg PO DIRECTED PRN 10/27/21 01/07/22 History fluticasone propionate 50 2 spray INTRANASAL DAILY PRN #15.8 11/08/21 01/07/22 Rx mcg/actuation nasal ml spray,suspension (Flonase Allergy Relief) ipratropium bromide 0.02 % 2.5 ml INHALATION QID #187.5 ml 11/18/21 01/07/22 Rx solution for inhalation albuterol sulfate 2.5 mg INHALATION Q4H PRN #300 ml 12/03/21 01/07/22 Rx budesonide 0.5 mg/2 mL suspension 0.5 mg INHALATION BID #120 ml 12/03/21 01/07/22 Rx for nebulization pantoprazole 40 mg tablet,delayed 40 mg PO DAILY #90 tab 12/03/21 01/07/22 Rx release glycopyrrolate 9 mcg-formoterol 2 puff INHALATION BID #10.7 g 12/06/21 01/07/22 Rx 4.8 mcg HFA aerosol inhaler (Bevespi Aerosphere) loratadine 10 mg tablet (Claritin) 10 mg PO DAILY #30 tab 12/29/21 01/07/22 Rx tramadol 50 mg tablet 50 mg PO TID PRN #90 tab 01/17/22 Rx albuterol sulfate 90 mcg/actuation 2 inh INH QID PRN #8.5 g 01/26/22 Rx aerosol inhaler (Ventolin HFA) baclofen 10 mg tablet 10 mg PO TID PRN #90 tab 02/09/22 Rx Inpatient Medication List Propofol (Diprivan) 1,000 mg in 100 mls @ 9.972 mls/hr IV .Q10H2M YAN; Protocol Stop: 02/23/22 15:29 Last Admin: 02/20/22 18:46 Dose: 30 mcg/kg/min, 15 mls/hr Documented by: [id number] Cosigned by: [id number] Titration: 02/20/22 18:46 Dose: 30 mcg/kg/min, 15 mls/hr Documented by: [id number] Cosigned by: [id number] Admin: 02/20/22 15:31 Dose: 30 mcg/kg/min, 15 mls/hr Documented by: [id number] Cosigned by: [id number] Parenteral Electrolytes (Plasma-Lyte A) 1,000 mls @ 80 mls/hr IV .[id number] YAN Stop: 03/22/22 18:59 Last Admin: 02/20/22 19:05 Dose: 80 mls/hr Documented by: [id number] Fentanyl Citrate (Fentanyl Citrate) 2,500 mcg in 250 mls @ 2.5 mls/hr IV .Q96H YAN; Protocol Stop: 03/06/22 18:50 Last Admin: 02/20/22 18:58 Dose: 25 mcg/hr, 2.5 mls/hr Documented by: [id number] Cosigned by: [id number] Cefepime HCl 2,000 mg/ Syringe 20 mls @ 5 mls/min IV Q12H [facility]; Protocol Stop: 03/02/22 18:59 Last Admin: 02/20/22 19:33 Dose: 5 mls/min Documented by: [id number] Doxycycline Hyclate 100 mg/ (Dextrose) 110 mls @ 50 mls/hr IV Q12H [facility] Stop: 03/02/22 18:59 Last Admin: 02/20/22 19:34 Dose: 50 mls/hr Documented by: [id number] Dexamethasone 6 mg/ Syringe 1.5 mls @ 1 mls/min IV DAILY [facility] Stop: 03/22/22 18:59 Last Admin: 02/20/22 19:33 Dose: 1 mls/min Documented by: [id number] Norepinephrine Bitartrate (Levophed/D5w) 4 mg in 250 mls @ 15.581 mls/hr IV .Q16H3M [facility]; Protocol Stop: 03/22/22 18:59 Last Admin: 02/20/22 18:58 Dose: 0.05 mcg/kg/min, 15.6 mls/hr Documented by: [id number] Cosigned by: [id number] Discontinued Medications Fentanyl Citrate (Fentanyl Citrate 2,500 Mcg/250 Ml Bag) Confirm Administered Dose 2,500 mcg IV .STK-MED ONE Stop: 02/20/22 18:45 Last Admin: 02/20/22 18:57 Dose: Not Given Documented by: [id number] Gadobutrol (Gadobutrol 65ml Vial) 8.5 ml IV ONCE ONE Stop: 02/20/22 17:41 Last Admin: 02/20/22 17:41 Dose: 8.5 ml Documented by: [id number] Levetiracetam 2,000 mg/ Sodium (Chloride) 270 mls @ 440 mls/hr IV NOW ONE Stop: 02/20/22 13:06 Last Infusion: 02/20/22 13:20 Dose: 0 mls/hr Documented by: [id number] Admin: 02/20/22 12:39 Dose: 440 mls/hr Documented by: [id number] Piperacillin Sod/Tazobactam Sod (Zosyn) 4.5 gm in 120 mls @ 240 mls/hr IV NOW ONE Stop: 02/20/22 14:19 Last Infusion: 02/20/22 14:36 Dose: 0 mls/hr Documented by: [id number] Admin: 02/20/22 14:12 Dose: 240 mls/hr Documented by: [id number] Vancomycin HCl 1,750 mg/ (Sodium Chloride) 535 mls @ 200 mls/hr IV NOW ONE Stop: 02/20/22 18:10 Last Admin: 02/20/22 16:24 Dose: 200 mls/hr Documented by: [id number] Ceftriaxone Sodium 2,000 mg/ (Dextrose) 70 mls @ 140 mls/hr IV Q12H YAN Stop: 03/02/22 15:59 Last Infusion: 02/20/22 16:24 Dose: 0 mls/hr Documented by: [id number] Admin: 02/20/22 16:11 Dose: 140 mls/hr Documented by: [id number] Acyclovir Sodium 610 mg/ (Dextrose) 112.2 mls @ 100 mls/hr IV Q12H YAN; Protocol Stop: 03/02/22 15:59 Last Infusion: 02/20/22 19:40 Dose: 0 mls/hr Documented by: [id number] Admin: 02/20/22 16:24 Dose: 100 mls/hr Documented by: [id number] Dexamethasone 6 mg/ Syringe 1.5 mls @ 1 mls/min IV ONE ONE Stop: 02/20/22 16:44 Last Admin: 02/20/22 19:34 Dose: Not Given Documented by: [id number] Lactated Ringer's (Lr) 500 mls @ 999 mls/hr IV .Q31M ONE Stop: 02/20/22 19:26 Last Infusion: 02/20/22 19:40 Dose: 0 mls/hr Documented by: [id number] Admin: 02/20/22 19:04 Dose: 999 mls/hr Documented by: [id number] Ioversol (Optiray 320 125ml) 119 ml IV ONCE ONE Stop: 02/20/22 13:26 Last Admin: 02/20/22 13:27 Dose: 119 ml Documented by: [id number] Lorazepam (Lorazepam 2 Mg/1 Ml Vial) Confirm Administered Dose 4 mg .ROUTE .STK- MED ONE Stop: 02/20/22 12:15 Last Admin: 02/20/22 14:10 Dose: Not Given Documented by: [id number] Lorazepam (Lorazepam 2 Mg/1 Ml Vial) 2 mg IV NOW STA Stop: 02/20/22 12:42 Last Admin: 02/20/22 12:46 Dose: 2 mg Documented by: [id number] Lorazepam (Lorazepam 2 Mg/1 Ml Vial) Confirm Administered Dose 2 mg .ROUTE .STK- MED ONE Stop: 02/20/22 12:43 Last Admin: 02/20/22 12:46 Dose: Not Given Documented by: [id number] Miscellaneous (Rapid Sequence Induction Bag) Confirm Administered Dose 1 ea .ROUTE .STK-MED ONE Stop: 02/20/22 12:11 Last Admin: 02/20/22 14:09 Dose: Not Given Documented by: [id number] Miscellaneous (Rapid Sequence Induction Bag) Confirm Administered Dose 1 ea .ROUTE .STK-MED ONE Stop: 02/20/22 14:57 Last Admin: 02/20/22 16:11 Dose: Not Given Documented by: [id number] Miscellaneous (Stat Iv Infusion Titration Per Protocol) 1 ea N/A NOW STA Stop: 02/20/22 15:54 Last Admin: 02/20/22 16:12 Dose: Not Given Documented by: [id number] Norepinephrine Bitartrate (Norepinephrine/D5w 4 Mg/250 Ml) Confirm Administered Dose 4 mg IV .STK-MED ONE Stop: 02/20/22 18:35 Last Admin: 02/20/22 18:41 Dose: Not Given Documented by: [id number] Propofol (Propofol Iv Emulsion 10 Mg/Ml 20 Ml Vial) Confirm Administered Dose 200 mg IV .STK-MED ONE Stop: 02/20/22 14:59 Last Admin: 02/20/22 16:12 Dose: Not Given Documented by: [id number] Propofol (Propofol Iv Emulsion 10 Mg/Ml 100 Ml Vial) Confirm Administered Dose 1,000 mg IV .STK-MED ONE Stop: 02/20/22 14:59 Last Admin: 02/20/22 16:12 Dose: Not Given Documented by: [id number] Propofol (Propofol Iv Emulsion 10 Mg/Ml 20 Ml Vial) 20 mg IV ONCE ONE Stop: 02/20/22 15:16 Last Admin: 02/20/22 16:12 Dose: 20 mg Documented by: [id number] Cosigned by: [id number] Description This is a 21 electrode EEG with a single channel dedicated to limited EKG. The electrodes were placed in accordance with the International 10-20 system. This EEG was done as a bedside there is evidence for the ICU and subcritical only with few muscle artifact and with a number of electronic artifacts. Photic stimulation was obtained. Video analysis of patient movement was also obtained. There is no normal background alpha rhythm but rather of relatively low voltage pattern in the occipital regions of up to 6 to 7 Hz maximum frequency of up to 10 to 15 V in amplitude. This is symmetrical. In the frontal and central regions moderate voltage theta delta activity polymorphic and occasionally rhyt hmic type is seen but there is no associated sharp wave activity, long rhythmic bursts of theta or delta activity or other potentially epileptogenic seizures. The activity is difficult to detect due to underlying muscle artifact Photic stimulation provokes no driving response As stated above there is no evidence during entirety of the recording or potentially epileptogenic activity or ongoing electrographic seizure patterns Interpretation Current EEG reveals evidence for moderate to moderately severe generalized nonlateralizing and nonspecific encephalopathy without associated potentially epileptogenic features Clinical Correlation This EEG is moderately diffusely abnormal in a pattern consistent with a nonspecific encephalopathy without lateralizing abnormalities and without any evidence for ongoing potential for subclinical seizure activity Beto Romero MD
[2022-02-20 20:09] LABS: iSTAT Art Bld Gas pCO2 Correct 67 mmHg (35-46); iSTAT Art Bld Gas pH Corrected 7.264 (7.35-7.45); iSTAT Arterial Blood Gas HCO3 31 meg/L (19-24); iSTAT Arterial Blood Gas pCO2 67 mmHg (35-46); iSTAT Arterial Blood Gas pH 7.27 (7.35-7.45); iSTAT Arterial Blood Gas pO2 54 mmHg (80-95); iSTAT Arterial Blood Gas pO2 C 54; iSTAT Carbon Dioxide 33 mmol/L (24-31); iSTAT FiO2 40 %; iSTAT Hematocrit 30 % (37-47); iSTAT Hemoglobin 10.2 g/dl (12.0-16.0); iSTAT Potassium 4.4 mmol/L (3.3-5.0); iSTAT Site Art Line; iSTAT Sodium 137 mmol/L (135-144)
[2022-02-20] MEDS: INSULIN ASPART PER UNIT SC SCH (20:20)
[2022-02-20] MEDS: PANTOprazole 40 MG in SYRINGE 0 ML IV SCH (20:23)
[2022-02-20] MEDS: SENNOSIDES 8.8 MG/5 ML UDC PO SCH (20:23)
--- NOTE | 2022-02-20 20:38 | Pharmacy Report ---
Pharmacy Glycemic Short Note 2 - Date of Service February 20, 2022 - Glycemic Short BSG Results (Last 24 hours): 02/20/22 02/20/22 02/20/22 12:30 12:35 18:43 Glucose 156 H 101 H POC Glucose POC Glucose (other) 168 H 02/20/22 20:04 Glucose POC Glucose 107 H POC Glucose (other) OUTPATIENT ANTIDIABETIC REGIMEN: * Metformin 1000 mg PO BIDM * HbA1c pending ASSESSMENT: * 66 yo F found unresponsive today and intubated in the ED. Pharmacy has been consulted to assist with inpatient glycemic management. * Stressors include Dexamethasone 6 mg IV daily, possible infection on Cefepime + Doxycycline + Acyclovir, requiring pressors (norepi). Remains on propofol and fentanyl. * BSGs have been well controlled since admission: 168-107 mg/dL. Has not required any insulin. * Started Novolog q4h for now. May be necessary to add NPH if steroid-induced hyperglycemia occurs. PLAN FOR INPATIENT GLYCEMIC CONTROL: * Hold outpatient oral diabetes medications * Basal insulin * None * Bolus insulin * NovoLog per scale ACHS or Q6hrs while NPO * Goal Range: Low 110 mg/dL - High 140 mg/dL * Correction Factor: 25 mg/dL/unit * Nutritional / Prandial insulin per carb ratio of 1 unit per 8 grams CHO consumed
[2022-02-20] MEDS ORDERED: SENNA 8.6 MG TAB PO SCH (21:00)
[2022-02-20 23:37] LABS: Adenovirus PCR Not Detected (NotDetected); Bordetella parapertussis PCR Not Detected (NotDetected); Bordetella pertussis PCR Not Detected (NotDetected); Chlamydia pneumoniae PCR Not Detected (NotDetected); Coronavirus 229E PCR Not Detected (NotDetected); Coronavirus CoV-2 (COVID19)PCR Not Detected (NotDetected); Coronavirus HKU1 PCR Not Detected (NotDetected); Coronavirus NL63 PCR Not Detected (NotDetected); Coronavirus OC43PCR Not Detected (NotDetected); Human Metapneumovirus PCR Not Detected (NotDetected); Influenza A PCR Not Detected (NotDetected); Influenza B PCR Not Detected (NotDetected); Mycoplasma pneumoniae PCR Not Detected (NotDetected); Parainfluenza Virus 1 PCR Not Detected (NotDetected); Parainfluenza Virus 2 PCR Not Detected (NotDetected); Parainfluenza Virus 3 PCR Not Detected (NotDetected); Parainfluenza Virus 4 PCR Not Detected (NotDetected); Respiratory Syncytial VirusPCR Not Detected (NotDetected); Rhinovirus/Enterovirus PCR Not Detected (NotDetected)
[2022-02-21] MEDS: INSULIN ASPART PER UNIT SC SCH ×6 (00:55→20:15)
[2022-02-21] MEDS: LEVETIRACETAM IV SCH ×2 (01:10→16:44)
[2022-02-21] MEDS: SODIUM CHLORIDE 0.9% IV SCH ×2 (01:10→16:44)
[2022-02-21 03:22] LABS: Basophils # (auto) 0.03 K/uL (0-0.2); Basophils % (auto) 0.3 %; Eosinophils # (auto) 0.03 K/uL (0-0.5); Eosinophils % (auto) 0.3 %; Hematocrit (blood only) 31.4 % (37-47); Hemoglobin 10.1 g/dL (12.0-16.0); Immature Granulocytes # (auto) 0.03 K/uL (0.00-0.02); Immature Granulocytes % (auto) 0.3 %; Lymphocytes # (auto) 3.07 K/uL (1.2-3.4); Lymphocytes % (auto) 25.7 %; Mean Corpuscular Hemoglobin 27.6 pg (25-34); Mean Corpuscular Hgb Conc 32.2 g/dL (32-36); Mean Corpuscular Volume 85.8 fL (80-100); Mean Platelet Volume 10.1 fL (7.4-10.4); Monocytes # (auto) 0.82 K/uL (0.11-0.59); Monocytes % (auto) 6.9 %; Neutrophils # (auto) 7.98 K/uL (1.4-6.5); Neutrophils % (auto) 66.5 %; Platelet Count 152 K/uL (130-400); RDW Coefficient of Variation 13.6 % (11.5-14.5); RDW Standard Deviation 42.4 fL (36.4-46.3); Red Blood Count 3.66 M/uL (4.2-5.4); White Blood Count 11.96 K/uL (4.8-10.8)
[2022-02-21 03:46] LABS: Prothrombin Time 10.5 Seconds (9.0-12.0)
[2022-02-21] MEDS ORDERED: ACYCLOVIR SOD 650 MG in DEXTROSE 5% 100 ML IV SCH (04:00)
[2022-02-21] MEDS ORDERED: VANCOMYCIN HCL 1,000 MG in SODIUM CHLORIDE 0.9% 250 ML IV SCH (04:00)
[2022-02-21 04:07] LABS: Albumin Level 3.1 gm/dl (3.4-5.0); BUN Creatinine Ratio 25.4 (10-20); Bilirubin Direct 0.1 mg/dl (0-0.2); Bilirubin,Total 0.3 mg/dl (0.2-1.0); Calcium 8.7 mg/dl (8.5-10.1); Creatinine Clr Calc Pharmacy 48.2 ml/min; Est GFR (African American) 55.3 ml/min; Est GFR (Non-African American) 47.7 ml/min; Magnesium 1.6 mg/dl (1.7-2.4); Potassium 4.5 mmol/L (3.5-5.1); Total Protein 5.3 gm/dl (6.0-8.3); Troponin I High Sensitivity 145.2 pg/ml (0-14)
[2022-02-21 04:26] LABS: iSTAT Art Bld Gas pCO2 Correct 52 mmHg (35-46); iSTAT Art Bld Gas pH Corrected 7.383 (7.35-7.45); iSTAT Arterial Blood Gas HCO3 31 meg/L (19-24); iSTAT Arterial Blood Gas pCO2 53 mmHg (35-46); iSTAT Arterial Blood Gas pH 7.38 (7.35-7.45); iSTAT Arterial Blood Gas pO2 69 mmHg (80-95); iSTAT Arterial Blood Gas pO2 C 67; iSTAT Carbon Dioxide 33 mmol/L (24-31); iSTAT FiO2 40 %; iSTAT Hematocrit 27 % (37-47); iSTAT Hemoglobin 9.2 g/dl (12.0-16.0); iSTAT Site Art Line; iSTAT Sodium 136 mmol/L (135-144)
[2022-02-21] MEDS: propofoL 1,000 MG/100 ML VIAL IV SCH ×2 (05:05→07:27)
[2022-02-21] MEDS: MAGNESIUM SULFATE / D5W 1 GM/100 ML BAG IV SCH ×3 (05:56→09:08)
[2022-02-21] MEDS: CEFEPIME 2,000 MG in SYRINGE 0 ML IV SCH ×2 (07:26→20:05)
[2022-02-21] MEDS: DOXYCYCLINE HYCLATE 100 MG in DEXTROSE 5% 100 ML IV SCH ×2 (07:26→20:05)
[2022-02-21] MEDS: NORMOSOL-R 1,000 ML IV SCH (07:26)
[2022-02-21] MEDS: BUDESONIDE 0.5 MG/2 ML VIAL (PULMICORT) INH SCH ×2 (07:42→19:56)
--- NOTE | 2022-02-21 07:58 | XRay Report ---
XR chest 1V portable HISTORY: eval tube and line placement evaluate lungs COMPARISON: Chest 02/20/2022. FINDINGS: The endotracheal tube terminates 2.7 cm from the erik. Nasogastric tube terminates below the diaphragm with the tip located at the gastric fundus. Left subclavian central venous catheter ter minates at the proximal SVC. No pneumothorax. No pleural effusions. The heart is normal in size. No n ew focal lung consolidations to suggest pneumonia. Emphysema. IMPRESSION: 1. Satisfactory support line placement. 2. No focal lung consolidations to suggest pneumonia. ACT 112: Negative or not required by law. Electronically signed by: Homar Scott M.D. 02/21/2022 7:56 AM
[2022-02-21] MEDS: HEPARIN SOD 5,000 UNIT/0.5 ML VIAL SQ SCH ×3 (08:20→21:58)
[2022-02-21] MEDS: PRAVASTATIN SOD 40 MG TAB PO SCH (08:20)
[2022-02-21 08:31] LABS: Estimated Average Glucose 82 mg/dl; Hemoglobin A1C 4.5 % (4.5-5.6)
--- NOTE | 2022-02-21 08:45 | Magnetic Resonance Report ---
MR brain seizure wo/w con CLINICAL HISTORY: new onset seizure. COMPARISON STUDY: No previous studies for comparison. TECHNIQUE: Multiplanar multisequence images of the brain were performed before and after Gadavist, 8 .5 mL of IV contrast. Diffusion weighted imaging and ADC mapping was also performed. FINDINGS: Extra-axial space: There is no evidence for a subdural hematoma, There are no extra-axial fluid aryan ections. Ventricles and cisterns: The ventricles are normal in size and configuration. There is no evidence f or midline shift or mass effect. Parenchyma: On noncontrast images, there is no evidence for an acute hemorrhage or infarct. No acute diffusion abnormalities are noted on diffusion weighted imaging or ADC mapping. There is normal collado -white differentiation. The sulci and gyri appear normal without effacement. There is evidence for an empty sella. The posterior fossa structures appear normal. On postcontrast images, there is no evidence for enhancing mass lesion. Osseous structures: The paranasal sinuses are well aerated. There is prominent mucosal thickening in volving the mastoid air cells bilaterally, right greater than left. Soft tissues: There is evidence for soft tissue swelling along the roof of the mouth. Clinical corre lation is recommended. IMPRESSION: 1. No acute intracranial abnormalities. 2. Bilateral mastoiditis, right greater than left. 3. Empty sella. 4. Evidence for soft tissue swelling along the roof of the mouth. Direct visualization is recommended . ACT 112: Negative or not required by law. Electronically signed by: Willy Valdes M.D. 02/21/2022 8:43 AM
[2022-02-21] MEDS: dexAMETHasone 6 MG in SYRINGE 0 ML IV SCH (09:01)
[2022-02-21] MEDS: PANTOprazole 40 MG in SYRINGE 0 ML IV SCH (09:01)
[2022-02-21] MEDS ORDERED: STAT IV Infusion **Titration per Protocol STA (09:13)
--- NOTE | 2022-02-21 09:45 | Hospitalist Progress Note ---
Date of Service February 21, 2022 Assessment & Plan (1) Acute encephalopathy: Plan: Patient presents febrile and with seizure activity- she was obtunded and hypercarbic, hypoxic, and acidotic CT head and now MRI brain both showing mastoiditis bilaterally as well as acute sinusitis MRI brain negative for stroke otherwise CSF-0 WBCs, no xanthochromia, culture preliminary no growth, CSF fungal culture pending, CSF bio fire all negative EEG negative for seizure but shows encephalopathy Likely some continued postictal state as well as infection, hypoxia, and hypercapnia accounting for her encephalopathy She was given IV Ativan for seizures Patient intubated after she was unable to protect her airway Appreciate neurology consultation-antiepileptic drug management changed from Keppra to Depakote Toxicology screen negative (2) Seizure-like activity: Plan: Reported and witnessed by EMS -As above, EEG without seizure activity MRI brain negative Likely secondary to hypoxia, infection, fever Appreciate neurology consultation Discontinue Keppra and start Depakote (3) Sepsis: Plan: Secondary to acute sinusitis and mastoiditis Meningitis has been ruled out - Fever, WBC elevation, NLR elevation, Lactate normal - organ dysfunction- GERALD II, elevated HScTNI, encephalopathy - ABX to continue with cefepime and doxycycline. Acyclovir has now been discontinued as herpes meningitis ruled out - Continue supportive care, IV fluids with Normosol (4) Acute and chronic respiratory failure with hypoxia: Plan: As above - Intubated goal SPO2 88-92% - Continue albuterol nebs and budesinide nebs - Decadron - Acute on chronic hypercarbic respiratory failure in the setting of non compliant BiPAP/CPAP use at home-ABG this morning shows resolution of acute component of hypercarbic respiratory failure (5) Chronic kidney disease, stage 3a: Plan: GERALD II on CKD III in the setting of sepsis/encephalopathy/hypercarbic respiratory failure GFR 30- renally dose medications- appreciate pharmacy assistance - (6) Obesity: Plan: Chronic continue with disease modifying meds- insulin for DM, Statin, ASA, BB - will hold home meds for now and continue when appropriate (7) Hypertension: Plan: Now starting Cardene drip for hypertension (8) COPD (chronic obstructive pulmonary disease): Plan: COPD exacerbation as well as noncompliance with overnight positive pressure therapy - As above- emphysema COPD - will hold her Brevspi while intubated - transition to prednisone when appropriate - son reports continued non-compliance with her BiPAP - She has history hypercarbic respiratory failure requiring intubation secondary to encephalopathy (9) Elevated troponin: Plan: 2 hour reflex from admission HScTNI increased from 25 to 102.0, then peaked at 187 - ECG without acute changes - likely related to hypoxia, hypercarbia, acidosis demand on the heart (10) Acidosis: Plan: Hypercarbic respiratory acidosis-Now improved - ABG 1 hour on current ventilatory settings - HCO3 for PH <7.1 - Remains hemodynamically stable without pressors (11) Sinusitis: Plan: CSF negative for infection -Continue cefepime, Daptomycin for sinusitis/mastoiditis - follow blood cultures (12) Mastoiditis: Plan: As above (13) Pulmonary nodules: Plan: Right lower lobe nodule seen on CT chest Follow-up CT chest 3 months Plan: DVT prophylaxis Heparin FEN-start tube feeds Disposition-continued stay in ICU Admission and Anticipated Discharge Date Admission Date: February 20, 2022 Subjective Remains intubated, sedated. No overnight events. Briefly on pressors and now elevated pressures and about to start on Cardene gtt. Review of Systems Review of Systems: Unobtainable due to endotracheal tube and Unobtainable due to reduced consciousness Physical Exam Constitutional: WD/WN, vitals as above ENMT: ET tube in place Neck: trachea midline, no thyromegaly Respiratory: normal respiratory effort, lungs clear to auscultation Cardiovascular: RRR, no murmur, no edema Chest (Breasts): Chest: normal inspection of chest Gastrointestinal (Abdomen): normal bowel sounds, soft, nontender, no hepatosplenomegaly Musculoskeletal: Extremities: extremities normal to inspection; no cyanosis and no clubbing Skin: no rashes, warm and dry Neurologic: moves all extremities; no focal motor deficits and + not awake Genitourinary: Degroot catheter in place draining dark yellow urine Lymphatic: no lymphedema Results & Data Results & Data ([facility]) Vital Signs (Past 12 Hours) Vital Signs Temp Pulse Resp BP Pulse Ox 02/21/22 07:34 98 H 23 98 02/21/22 06:30 36.4 C L 83 22 113/76 95 02/21/22 06:15 36.4 C L 86 22 113/60 94 02/21/22 06:00 36.4 C L 88 22 112/68 95 02/21/22 05:45 36.4 C L 85 22 111/71 100 02/21/22 05:30 36.3 C L 84 22 107/78 99 02/21/22 05:20 36.3 C L 103 H 23 62/49 L 88 L 02/21/22 05:15 36.3 C L 106 H 23 100/64 93 02/21/22 05:02 36.4 C L 101 H 25 H 127/76 99 02/21/22 05:00 36.4 C L 96 H 23 100 02/21/22 04:30 36.5 C 87 22 116/58 L 91 02/21/22 04:15 36.5 C 82 22 149/71 H 99 02/21/22 04:10 83 23 99 02/21/22 04:00 36.6 C 77 22 97 02/21/22 03:45 36.6 C 76 22 87/53 L 97 02/21/22 03:30 36.6 C 72 22 105/57 L 97 02/21/22 03:15 36.5 C 75 22 98/57 L 98 02/21/22 03:01 36.5 C 62 22 167/77 H 97 02/21/22 03:00 36.5 C 62 22 97 02/21/22 02:30 36.6 C 77 22 95/55 L 98 02/21/22 02:15 36.6 C 75 22 95/56 L 98 02/21/22 02:00 36.6 C 77 22 94/56 L 99 02/21/22 01:45 36.6 C 74 22 102/53 L 98 02/21/22 01:30 36.6 C 75 22 114/61 99 02/21/22 01:15 36.8 C 79 22 101/63 98 02/21/22 01:00 36.8 C 79 22 93/55 L 97 02/21/22 00:45 36.8 C 81 22 101/58 L 97 02/21/22 00:30 36.8 C 79 22 87/56 L 97 02/21/22 00:15 36.9 C 79 22 105/61 97 02/21/22 00:00 36.8 C 82 22 109/69 95 02/20/22 23:45 36.9 C 79 22 96/58 L 97 02/20/22 23:30 36.9 C 80 22 102/67 97 02/20/22 23:15 36.9 C 79 22 98/58 L 95 02/20/22 23:00 36.8 C 77 22 132/74 100 02/20/22 22:56 83 23 99 02/20/22 22:45 36.9 C 83 22 99/56 L 100 02/20/22 22:30 36.9 C 84 22 108/57 L 100 02/20/22 22:15 36.9 C 85 22 109/56 L 100 02/20/22 22:00 37.0 C 87 22 109/59 L 99 02/20/22 21:45 37.0 C 85 22 115/57 L 99 Laboratory Results 02/21/22 02/21/22 02/21/22 Range/Units 08:57 04:08 04:01 WBC (4.8-10.8) K/uL RBC (4.2-5.4) M/uL Hgb (12.0-16.0) g/dL POC Hgb 9.2 L (12.0-16.0) g/dl Hct (37-47) % POC Hct 27 L (37-47) % MCV (80-100) fL MCH (25-34) pg MCHC (32-36) g/dL RDW Std Deviation (36.4-46.3) fL RDW Coeff of Ana (11.5-14.5) % Plt Count (130-400) K/uL MPV (7.4-10.4) fL Immature Gran % (Auto) % Neut % (Auto) % Lymph % (Auto) % Perry % (Auto) % Eos % (Auto) % Baso % (Auto) % Neut # (Auto) (1.4-6.5) K/uL Lymph # (Auto) (1.2-3.4) K/uL Perry # (Auto) (0.11-0.59) K/uL Eos # (Auto) (0-0.5) K/uL Baso # (Auto) (0-0.2) K/uL Immature Gran # (Auto) (0.00-0.02) K/uL PT (9.0-12.0) Seconds INR (0.9-1.1) APTT (21.0-31.0) Seconds PTT Ratio Sample Site Art Line POC pH 7.38 (7.35-7.45) POC pCO2 53 H (35-46) mmHg POC pO2 69 L (80-95) mmHg POC HCO3 31 H (19-24) rosalind/L POC Base Excess 6.0 H (-9-1.8) rosalind/L ABG pH (Temp Correct) 7.383 (7.35-7.45) ABG pCO2 (Temp Corrct 52 H (35-46) mmHg POC ABG pO2 at Pt Temp 67 POC ABG O2 Sat 93.0 (90-95) % Berto Test NA VBG pH (7.36-7.41) VBG pCO2 (38-50) mmHg VBG pO2 mmHg VBG HCO3 mmol/L VBG O2 Saturation % VBG Base Excess mEq/L Barometric Pressure mm/Hg O2 Delivery Device Ventilator POC O2 Rate 22 POC FiO2 40 % Tidal Volume 350 PEEP 5 POC Sodium 136 (135-144) mmol/L Sodium (136-145) mmol/L POC Potassium 4.0 (3.3-5.0) mmol/L Potassium (3.5-5.1) mmol/L POC Chloride (101-112) mmol/L Chloride (98-107) mmol/L Carbon Dioxide (21-32) mmol/L POC Total CO2 33 H (24-31) mmol/L Anion Gap (3-11) POC Anion Gap (16-25) mmol/L POC BUN (7-18) mg/dl BUN (6-23) mg/dl Creatinine (0.6-1.2) mg/dl POC Creatinine (0.6-1.3) mg/dl Est Cr Clr Drug Dosing Est GFR ( Amer) ml/min Est GFR (Non-Af Amer) ml/min BUN/Creatinine Ratio (10-20) Glucose (70-99(Fasting)) mg/dl POC Glucose 123 H 74 (70-99) mg/dl POC Glucose (other) (70-99) mg/dl Estimat Average Glucose mg/dl Hemoglobin A1c (4.5-5.6) % Lactate (0.4-2.0) mmol/L Calcium (8.5-10.1) mg/dl POC Ioniz Calcium Steffany (1.12-1.32) mmol/l Phosphorus (2.5-4.9) mg/dl Magnesium (1.7-2.4) mg/dl Total Bilirubin (0.2-1.0) mg/dl Direct Bilirubin (0-0.2) mg/dl AST (13-39) U/L ALT (7-52) U/L Alkaline Phosphatase (34-104) U/L Total Creatine Kinase (26-192) U/L Troponin I High Sens (0-14) pg/ml Total Protein (6.0-8.3) gm/dl Albumin (3.4-5.0) gm/dl Globulin (2.5-4.0) gm/dl Albumin/Globulin Ratio (0.9-2) Lipase (11-82) U/L Urine Color Urine Appearance (Clear) Urine pH (4.5-7.5) Ur Specific Monroe (1.000-1.030) Urine Protein (Negative) Urine Glucose (UA) (Negative) Urine Ketones (Negative) Urine Blood (Negative) Urine Nitrite (Negative) Urine Bilirubin (Negative) Urine Urobilinogen (Negative) Ur Leukocyte Esterase (Negative) Urine WBC (Auto) (0-5) /hpf Urine RBC (Auto) (0-4) /hpf U Hyaline Cast (Auto) (0-5) /lpf U Epithel Cells (Auto) (0-5) /lpf Urine Bacteria (Auto) (Negative) Fluid Comment CSF Appearance CSF Color Xanthrochromic CSF WBC (0-5) /uL CSF RBC (0-) /uL CSF Cell Count Tube # CSF Chemistry Tube # CSF Glucose (40-70) mg/dl CSF LDH CSF Lactate (0.6-2.2) mmol/L CSF Total Protein (15-45) mg/dl CSF C.neoform/gat PCR (NotDetected) CSF CMV DNA (PCR) (NotDetected) CSF Enterovirus (PCR) (NotDetected) CSF E. coli K1 (PCR) (NotDetected) CSF H. influenzae (PCR) (NotDetected) CSF HSV I (PCR) (NotDetected) CSF HSV II (PCR) (NotDetected) CSF HHV 6 (PCR) (NotDetected) CSF L.monocytogenes PCR (NotDetected) CSF N. meningitidis PCR (NotDetected) CSF Parechovirus (PCR) (NotDetected) CSF S. agalactiae (PCR) (NotDetected) CSF S. pneumoniae (PCR) (NotDetected) CSF VZV DNA (PCR) (NotDetected) Nasal Screen MRSA (PCR) (Negative) Salicylates (3.0-30) mg/dl Urine Opiates Screen (Neg) Ur Methadone, Qual (Neg) Acetaminophen (10-30) ug/ml Urine Barbiturates (Neg) Levetiracetam Ur Phencyclidine (PCP) (Neg) U Amphetamin/Meth Scrn (Neg) MDMA (Ecstasy) Screen (Neg) U Benzodiazepines Scrn (Neg) Ur Cocaine Metabolite (Neg) U Marijuana (THC) Screen (Neg) Ethyl Alcohol mg/dL (<10.0) mg/dl Adenovirus (PCR) (NotDetected) B. pertussis DNA (PCR) (NotDetected) B.parapertussis DNA PCR (NotDetected) Lyme Disease IgG Ab (Negative) Lyme Disease IgM Ab (Negative) C. pneumoniae DNA (PCR) (NotDetected) Coronavirus OC43 (PCR) (NotDetected) Coronavirus HKU1 (PCR) (NotDetected) Coronavirus 229E (PCR) (NotDetected) SARS-CoV-2 (PCR) (NotDetected) Coronavirus NL63 (PCR) (NotDetected) Cryptococcus Source Cryptococcal Ag (Latex) Human Metapneumovir PCR (NotDetected) Influenza Type A (PCR) (NotDetected) Influenza Type B (PCR) (NotDetected) M. pneumoniae (PCR) (NotDetected) Parainfluenza 1 (PCR) (NotDetected) Parainfluenza 2 (PCR) (NotDetected) Parainfluenza 3 (PCR) (NotDetected) Parainfluenza 4 (PCR) (NotDetected) RSV (PCR) (NotDetected) Entero/Rhino (PCR) (NotDetected) SARS-CoV-2, RNA, NAAT (NEGATIVE) 02/21/22 02/21/22 02/21/22 Range/Units 03:00 03:00 03:00 WBC 11.96 H (4.8-10.8) K/uL RBC 3.66 L (4.2-5.4) M/uL Hgb 10.1 L D (12.0-16.0) g/dL POC Hgb (12.0-16.0) g/dl Hct 31.4 L (37-47) % POC Hct (37-47) % MCV 85.8 (80-100) fL MCH 27.6 (25-34) pg MCHC 32.2 (32-36) g/dL RDW Std Deviation 42.4 (36.4-46.3) fL RDW Coeff of Ana 13.6 (11.5-14.5) % Plt Count 152 (130-400) K/uL MPV 10.1 (7.4-10.4) fL Immature Gran % (Auto) 0.3 % Neut % (Auto) 66.5 % Lymph % (Auto) 25.7 % Perry % (Auto) 6.9 % Eos % (Auto) 0.3 % Baso % (Auto) 0.3 % Neut # (Auto) 7.98 H (1.4-6.5) K/uL Lymph # (Auto) 3.07 (1.2-3.4) K/uL Perry # (Auto) 0.82 H (0.11-0.59) K/uL Eos # (Auto) 0.03 (0-0.5) K/uL Baso # (Auto) 0.03 (0-0.2) K/uL Immature Gran # (Auto) 0.03 H (0.00-0.02) K/uL PT 10.5 (9.0-12.0) Seconds INR 1.0 (0.9-1.1) APTT (21.0-31.0) Seconds PTT Ratio Sample Site POC pH (7.35-7.45) POC pCO2 (35-46) mmHg POC pO2 (80-95) mmHg POC HCO3 (19-24) rosalind/L POC Base Excess (-9-1.8) rosalind/L ABG pH (Temp Correct) (7.35-7.45) ABG pCO2 (Temp Corrct (35-46) mmHg POC ABG pO2 at Pt Temp POC ABG O2 Sat (90-95) % Berto Test VBG pH (7.36-7.41) VBG pCO2 (38-50) mmHg VBG pO2 mmHg VBG HCO3 mmol/L VBG O2 Saturation % VBG Base Excess mEq/L Barometric Pressure mm/Hg O2 Delivery Device POC O2 Rate POC FiO2 % Tidal Volume PEEP POC Sodium (135-144) mmol/L Sodium 140 (136-145) mmol/L POC Potassium (3.3-5.0) mmol/L Potassium 4.5 (3.5-5.1) mmol/L POC Chloride (101-112) mmol/L Chloride 100 (98-107) mmol/L Carbon Dioxide 29 (21-32) mmol/L POC Total CO2 (24-31) mmol/L Anion Gap 11 (3-11) POC Anion Gap (16-25) mmol/L POC BUN (7-18) mg/dl BUN 30 H (6-23) mg/dl Creatinine 1.18 (0.6-1.2) mg/dl POC Creatinine (0.6-1.3) mg/dl Est Cr Clr Drug Dosing 48.2 Est GFR ( Amer) 55.3 ml/min Est GFR (Non-Af Amer) 47.7 ml/min BUN/Creatinine Ratio 25.4 H (10-20) Glucose 84 (70-99(Fasting)) mg/dl POC Glucose (70-99) mg/dl POC Glucose (other) (70-99) mg/dl Estimat Average Glucose mg/dl Hemoglobin A1c (4.5-5.6) % Lactate (0.4-2.0) mmol/L Calcium 8.7 (8.5-10.1) mg/dl POC Ioniz Calcium Steffany (1.12-1.32) mmol/l Phosphorus 4.0 (2.5-4.9) mg/dl Magnesium 1.6 L (1.7-2.4) mg/dl Total Bilirubin 0.3 (0.2-1.0) mg/dl Direct Bilirubin 0.1 (0-0.2) mg/dl AST 12 L (13-39) U/L ALT 9 (7-52) U/L Alkaline Phosphatase 45 (34-104) U/L Total Creatine Kinase (26-192) U/L Troponin I High Sens 145.2 H* D (0-14) pg/ml Total Protein 5.3 L D (6.0-8.3) gm/dl Albumin 3.1 L (3.4-5.0) gm/dl Globulin (2.5-4.0) gm/dl Albumin/Globulin Ratio (0.9-2) Lipase (11-82) U/L Urine Color Urine Appearance (Clear) Urine pH (4.5-7.5) Ur Specific Monroe (1.000-1.030) Urine Protein (Negative) Urine Glucose (UA) (Negative) Urine Ketones (Negative) Urine Blood (Negative) Urine Nitrite (Negative) Urine Bilirubin (Negative) Urine Urobilinogen (Negative) Ur Leukocyte Esterase (Negative) Urine WBC (Auto) (0-5) /hpf Urine RBC (Auto) (0-4) /hpf U Hyaline Cast (Auto) (0-5) /lpf U Epithel Cells (Auto) (0-5) /lpf Urine Bacteria (Auto) (Negative) Fluid Comment CSF Appearance CSF Color Xanthrochromic CSF WBC (0-5) /uL CSF RBC (0-) /uL CSF Cell Count Tube # CSF Chemistry Tube # CSF Glucose (40-70) mg/dl CSF LDH CSF Lactate (0.6-2.2) mmol/L CSF Total Protein (15-45) mg/dl CSF C.neoform/gat PCR (NotDetected) CSF CMV DNA (PCR) (NotDetected) CSF Enterovirus (PCR) (NotDetected) CSF E. coli K1 (PCR) (NotDetected) CSF H. influenzae (PCR) (NotDetected) CSF HSV I (PCR) (NotDetected) CSF HSV II (PCR) (NotDetected) CSF HHV 6 (PCR) (NotDetected) CSF L.monocytogenes PCR (NotDetected) CSF N. meningitidis PCR (NotDetected) CSF Parechovirus (PCR) (NotDetected) CSF S. agalactiae (PCR) (NotDetected) CSF S. pneumoniae (PCR) (NotDetected) CSF VZV DNA (PCR) (NotDetected) Nasal Screen MRSA (PCR) (Negative) Salicylates (3.0-30) mg/dl Urine Opiates Screen (Neg) Ur Methadone, Qual (Neg) Acetaminophen (10-30) ug/ml Urine Barbiturates (Neg) Levetiracetam Ur Phencyclidine (PCP) (Neg) U Amphetamin/Meth Scrn (Neg) MDMA (Ecstasy) Screen (Neg) U Benzodiazepines Scrn (Neg) Ur Cocaine Metabolite (Neg) U Marijuana (THC) Screen (Neg) Ethyl Alcohol mg/dL (<10.0) mg/dl Adenovirus (PCR) (NotDetected) B. pertussis DNA (PCR) (NotDetected) B.parapertussis DNA PCR (NotDetected) Lyme Disease IgG Ab (Negative) Lyme Disease IgM Ab (Negative) C. pneumoniae DNA (PCR) (NotDetected) Coronavirus OC43 (PCR) (NotDetected) Coronavirus HKU1 (PCR) (NotDetected) Coronavirus 229E (PCR) (NotDetected) SARS-CoV-2 (PCR) (NotDetected) Coronavirus NL63 (PCR) (NotDetected) Cryptococcus Source Cryptococcal Ag (Latex) Human Metapneumovir PCR (NotDetected) Influenza Type A (PCR) (NotDetected) Influenza Type B (PCR) (NotDetected) M. pneumoniae (PCR) (NotDetected) Parainfluenza 1 (PCR) (NotDetected) Parainfluenza 2 (PCR) (NotDetected) Parainfluenza 3 (PCR) (NotDetected) Parainfluenza 4 (PCR) (NotDetected) RSV (PCR) (NotDetected) Entero/Rhino (PCR) (NotDetected) SARS-CoV-2, RNA, NAAT (NEGATIVE) 02/21/22 02/21/22 02/20/22 Range/Units 03:00 00:21 21:11 WBC (4.8-10.8) K/uL RBC (4.2-5.4) M/uL Hgb (12.0-16.0) g/dL POC Hgb (12.0-16.0) g/dl Hct (37-47) % POC Hct (37-47) % MCV (80-100) fL MCH (25-34) pg MCHC (32-36) g/dL RDW Std Deviation (36.4-46.3) fL RDW Coeff of Ana (11.5-14.5) % Plt Count (130-400) K/uL MPV (7.4-10.4) fL Immature Gran % (Auto) % Neut % (Auto) % Lymph % (Auto) % Perry % (Auto) % Eos % (Auto) % Baso % (Auto) % Neut # (Auto) (1.4-6.5) K/uL Lymph # (Auto) (1.2-3.4) K/uL Perry # (Auto) (0.11-0.59) K/uL Eos # (Auto) (0-0.5) K/uL Baso # (Auto) (0-0.2) K/uL Immature Gran # (Auto) (0.00-0.02) K/uL PT (9.0-12.0) Seconds INR (0.9-1.1) APTT (21.0-31.0) Seconds PTT Ratio Sample Site POC pH (7.35-7.45) POC pCO2 (35-46) mmHg POC pO2 (80-95) mmHg POC HCO3 (19-24) rosalind/L POC Base Excess (-9-1.8) rosalind/L ABG pH (Temp Correct) (7.35-7.45) ABG pCO2 (Temp Corrct (35-46) mmHg POC ABG pO2 at Pt Temp POC ABG O2 Sat (90-95) % Berto Test VBG pH (7.36-7.41) VBG pCO2 (38-50) mmHg VBG pO2 mmHg VBG HCO3 mmol/L VBG O2 Saturation % VBG Base Excess mEq/L Barometric Pressure mm/Hg O2 Delivery Device POC O2 Rate POC FiO2 % Tidal Volume PEEP POC Sodium (135-144) mmol/L Sodium (136-145) mmol/L POC Potassium (3.3-5.0) mmol/L Potassium (3.5-5.1) mmol/L POC Chloride (101-112) mmol/L Chloride (98-107) mmol/L Carbon Dioxide (21-32) mmol/L POC Total CO2 (24-31) mmol/L Anion Gap (3-11) POC Anion Gap (16-25) mmol/L POC BUN (7-18) mg/dl BUN (6-23) mg/dl Creatinine (0.6-1.2) mg/dl POC Creatinine (0.6-1.3) mg/dl Est Cr Clr Drug Dosing Est GFR ( Amer) ml/min Est GFR (Non-Af Amer) ml/min BUN/Creatinine Ratio (10-20) Glucose (70-99(Fasting)) mg/dl POC Glucose 93 (70-99) mg/dl POC Glucose (other) (70-99) mg/dl Estimat Average Glucose 82 mg/dl Hemoglobin A1c 4.5 (4.5-5.6) % Lactate (0.4-2.0) mmol/L Calcium (8.5-10.1) mg/dl POC Ioniz Calcium Steffany (1.12-1.32) mmol/l Phosphorus (2.5-4.9) mg/dl Magnesium (1.7-2.4) mg/dl Total Bilirubin (0.2-1.0) mg/dl Direct Bilirubin (0-0.2) mg/dl AST (13-39) U/L ALT (7-52) U/L Alkaline Phosphatase (34-104) U/L Total Creatine Kinase (26-192) U/L Troponin I High Sens 187.2 H* D (0-14) pg/ml Total Protein (6.0-8.3) gm/dl Albumin (3.4-5.0) gm/dl Globulin (2.5-4.0) gm/dl Albumin/Globulin Ratio (0.9-2) Lipase (11-82) U/L Urine Color Urine Appearance (Clear) Urine pH (4.5-7.5) Ur Specific Monroe (1.000-1.030) Urine Protein (Negative) Urine Glucose (UA) (Negative) Urine Ketones (Negative) Urine Blood (Negative) Urine Nitrite (Negative) Urine Bilirubin (Negative) Urine Urobilinogen (Negative) Ur Leukocyte Esterase (Negative) Urine WBC (Auto) (0-5) /hpf Urine RBC (Auto) (0-4) /hpf U Hyaline Cast (Auto) (0-5) /lpf U Epithel Cells (Auto) (0-5) /lpf Urine Bacteria (Auto) (Negative) Fluid Comment CSF Appearance CSF Color Xanthrochromic CSF WBC (0-5) /uL CSF RBC (0-) /uL CSF Cell Count Tube # CSF Chemistry Tube # CSF Glucose (40-70) mg/dl CSF LDH CSF Lactate (0.6-2.2) mmol/L CSF Total Protein (15-45) mg/dl CSF C.neoform/gat PCR (NotDetected) CSF CMV DNA (PCR) (NotDetected) CSF Enterovirus (PCR) (NotDetected) CSF E. coli K1 (PCR) (NotDetected) CSF H. influenzae (PCR) (NotDetected) CSF HSV I (PCR) (NotDetected) CSF HSV II (PCR) (NotDetected) CSF HHV 6 (PCR) (NotDetected) CSF L.monocytogenes PCR (NotDetected) CSF N. meningitidis PCR (NotDetected) CSF Parechovirus (PCR) (NotDetected) CSF S. agalactiae (PCR) (NotDetected) CSF S. pneumoniae (PCR) (NotDetected) CSF VZV DNA (PCR) (NotDetected) Nasal Screen MRSA (PCR) (Negative) Salicylates (3.0-30) mg/dl Urine Opiates Screen (Neg) Ur Methadone, Qual (Neg) Acetaminophen (10-30) ug/ml Urine Barbiturates (Neg) Levetiracetam Ur Phencyclidine (PCP) (Neg) U Amphetamin/Meth Scrn (Neg) MDMA (Ecstasy) Screen (Neg) U Benzodiazepines Scrn (Neg) Ur Cocaine Metabolite (Neg) U Marijuana (THC) Screen (Neg) Ethyl Alcohol mg/dL (<10.0) mg/dl Adenovirus (PCR) (NotDetected) B. pertussis DNA (PCR) (NotDetected) B.parapertussis DNA PCR (NotDetected) Lyme Disease IgG Ab (Negative) Lyme Disease IgM Ab (Negative) C. pneumoniae DNA (PCR) (NotDetected) Coronavirus OC43 (PCR) (NotDetected) Coronavirus HKU1 (PCR) (NotDetected) Coronavirus 229E (PCR) (NotDetected) SARS-CoV-2 (PCR) (NotDetected) Coronavirus NL63 (PCR) (NotDetected) Cryptococcus Source Cryptococcal Ag (Latex) Human Metapneumovir PCR (NotDetected) Influenza Type A (PCR) (NotDetected) Influenza Type B (PCR) (NotDetected) M. pneumoniae (PCR) (NotDetected) Parainfluenza 1 (PCR) (NotDetected) Parainfluenza 2 (PCR) (NotDetected) Parainfluenza 3 (PCR) (NotDetected) Parainfluenza 4 (PCR) (NotDetected) RSV (PCR) (NotDetected) Entero/Rhino (PCR) (NotDetected) SARS-CoV-2, RNA, NAAT (NEGATIVE) 02/20/22 02/20/22 02/20/22 Range/Units 20:45 20:04 19:53 WBC (4.8-10.8) K/uL RBC (4.2-5.4) M/uL Hgb (12.0-16.0) g/dL POC Hgb 10.2 L (12.0-16.0) g/dl Hct (37-47) % POC Hct 30 L (37-47) % MCV (80-100) fL MCH (25-34) pg MCHC (32-36) g/dL RDW Std Deviation (36.4-46.3) fL RDW Coeff of Ana (11.5-14.5) % Plt Count (130-400) K/uL MPV (7.4-10.4) fL Immature Gran % (Auto) % Neut % (Auto) % Lymph % (Auto) % Perry % (Auto) % Eos % (Auto) % Baso % (Auto) % Neut # (Auto) (1.4-6.5) K/uL Lymph # (Auto) (1.2-3.4) K/uL Perry # (Auto) (0.11-0.59) K/uL Eos # (Auto) (0-0.5) K/uL Baso # (Auto) (0-0.2) K/uL Immature Gran # (Auto) (0.00-0.02) K/uL PT (9.0-12.0) Seconds INR (0.9-1.1) APTT (21.0-31.0) Seconds PTT Ratio Sample Site Art Line POC pH 7.27 L (7.35-7.45) POC pCO2 67 H (35-46) mmHg POC pO2 54 L (80-95) mmHg POC HCO3 31 H (19-24) rosalind/L POC Base Excess 4.0 H (-9-1.8) rosalind/L ABG pH (Temp Correct) 7.264 L (7.35-7.45) ABG pCO2 (Temp Corrct 67 H (35-46) mmHg POC ABG pO2 at Pt Temp 54 POC ABG O2 Sat 81.0 L (90-95) % Berto Test NA VBG pH (7.36-7.41) VBG pCO2 (38-50) mmHg VBG pO2 mmHg VBG HCO3 mmol/L VBG O2 Saturation % VBG Base Excess mEq/L Barometric Pressure mm/Hg O2 Delivery Device Ventilator POC O2 Rate 18 POC FiO2 40 % Tidal Volume 350 PEEP 5 POC Sodium 137 (135-144) mmol/L Sodium (136-145) mmol/L POC Potassium 4.4 (3.3-5.0) mmol/L Potassium (3.5-5.1) mmol/L POC Chloride (101-112) mmol/L Chloride (98-107) mmol/L Carbon Dioxide (21-32) mmol/L POC Total CO2 33 H (24-31) mmol/L Anion Gap (3-11) POC Anion Gap (16-25) mmol/L POC BUN (7-18) mg/dl BUN (6-23) mg/dl Creatinine (0.6-1.2) mg/dl POC Creatinine (0.6-1.3) mg/dl Est Cr Clr Drug Dosing Est GFR ( Amer) ml/min Est GFR (Non-Af Amer) ml/min BUN/Creatinine Ratio (10-20) Glucose (70-99(Fasting)) mg/dl POC Glucose 107 H (70-99) mg/dl POC Glucose (other) (70-99) mg/dl Estimat Average Glucose mg/dl Hemoglobin A1c (4.5-5.6) % Lactate (0.4-2.0) mmol/L Calcium (8.5-10.1) mg/dl POC Ioniz Calcium Steffany (1.12-1.32) mmol/l Phosphorus (2.5-4.9) mg/dl Magnesium (1.7-2.4) mg/dl Total Bilirubin (0.2-1.0) mg/dl Direct Bilirubin (0-0.2) mg/dl AST (13-39) U/L ALT (7-52) U/L Alkaline Phosphatase (34-104) U/L Total Creatine Kinase (26-192) U/L Troponin I High Sens (0-14) pg/ml Total Protein (6.0-8.3) gm/dl Albumin (3.4-5.0) gm/dl Globulin (2.5-4.0) gm/dl Albumin/Globulin Ratio (0.9-2) Lipase (11-82) U/L Urine Color Urine Appearance (Clear) Urine pH (4.5-7.5) Ur Specific Monroe (1.000-1.030) Urine Protein (Negative) Urine Glucose (UA) (Negative) Urine Ketones (Negative) Urine Blood (Negative) Urine Nitrite (Negative) Urine Bilirubin (Negative) Urine Urobilinogen (Negative) Ur Leukocyte Esterase (Negative) Urine WBC (Auto) (0-5) /hpf Urine RBC (Auto) (0-4) /hpf U Hyaline Cast (Auto) (0-5) /lpf U Epithel Cells (Auto) (0-5) /lpf Urine Bacteria (Auto) (Negative) Fluid Comment CSF Appearance CSF Color Xanthrochromic CSF WBC (0-5) /uL CSF RBC (0-) /uL CSF Cell Count Tube # CSF Chemistry Tube # CSF Glucose (40-70) mg/dl CSF LDH CSF Lactate (0.6-2.2) mmol/L CSF Total Protein (15-45) mg/dl CSF C.neoform/gat PCR (NotDetected) CSF CMV DNA (PCR) (NotDetected) CSF Enterovirus (PCR) (NotDetected) CSF E. coli K1 (PCR) (NotDetected) CSF H. influenzae (PCR) (NotDetected) CSF HSV I (PCR) (NotDetected) CSF HSV II (PCR) (NotDetected) CSF HHV 6 (PCR) (NotDetected) CSF L.monocytogenes PCR (NotDetected) CSF N. meningitidis PCR (NotDetected) CSF Parechovirus (PCR) (NotDetected) CSF S. agalactiae (PCR) (NotDetected) CSF S. pneumoniae (PCR) (NotDetected) CSF VZV DNA (PCR) (NotDetected) Nasal Screen MRSA (PCR) (Negative) Salicylates (3.0-30) mg/dl Urine Opiates Screen (Neg) Ur Methadone, Qual (Neg) Acetaminophen (10-30) ug/ml Urine Barbiturates (Neg) Levetiracetam Ur Phencyclidine (PCP) (Neg) U Amphetamin/Meth Scrn (Neg) MDMA (Ecstasy) Screen (Neg) U Benzodiazepines Scrn (Neg) Ur Cocaine Metabolite (Neg) U Marijuana (THC) Screen (Neg) Ethyl Alcohol mg/dL (<10.0) mg/dl Adenovirus (PCR) Not Detected (NotDetected) B. pertussis DNA (PCR) Not Detected (NotDetected) B.parapertussis DNA PCR Not Detected (NotDetected) Lyme Disease IgG Ab (Negative) Lyme Disease IgM Ab (Negative) C. pneumoniae DNA (PCR) Not Detected (NotDetected) Coronavirus OC43 (PCR) Not Detected (NotDetected) Coronavirus HKU1 (PCR) Not Detected (NotDetected) Coronavirus 229E (PCR) Not Detected (NotDetected) SARS-CoV-2 (PCR) Not Detected (NotDetected) Coronavirus NL63 (PCR) Not Detected (NotDetected) Cryptococcus Source Cryptococcal Ag (Latex) Human Metapneumovir PCR Not Detected (NotDetected) Influenza Type A (PCR) Not Detected (NotDetected) Influenza Type B (PCR) Not Detected (NotDetected) M. pneumoniae (PCR) Not Detected (NotDetected) Parainfluenza 1 (PCR) Not Detected (NotDetected) Parainfluenza 2 (PCR) Not Detected (NotDetected) Parainfluenza 3 (PCR) Not Detected (NotDetected) Parainfluenza 4 (PCR) Not Detected (NotDetected) RSV (PCR) Not Detected (NotDetected) Entero/Rhino (PCR) Not Detected (NotDetected) SARS-CoV-2, RNA, NAAT (NEGATIVE) 02/20/22 02/20/22 02/20/22 Range/Units 18:43 18:43 18:43 WBC (4.8-10.8) K/uL RBC (4.2-5.4) M/uL Hgb (12.0-16.0) g/dL POC Hgb (12.0-16.0) g/dl Hct (37-47) % POC Hct (37-47) % MCV (80-100) fL MCH (25-34) pg MCHC (32-36) g/dL RDW Std Deviation (36.4-46.3) fL RDW Coeff of Ana (11.5-14.5) % Plt Count (130-400) K/uL MPV (7.4-10.4) fL Immature Gran % (Auto) % Neut % (Auto) % Lymph % (Auto) % Perry % (Auto) % Eos % (Auto) % Baso % (Auto) % Neut # (Auto) (1.4-6.5) K/uL Lymph # (Auto) (1.2-3.4) K/uL Perry # (Auto) (0.11-0.59) K/uL Eos # (Auto) (0-0.5) K/uL Baso # (Auto) (0-0.2) K/uL Immature Gran # (Auto) (0.00-0.02) K/uL PT (9.0-12.0) Seconds INR (0.9-1.1) APTT (21.0-31.0) Seconds PTT Ratio Sample Site POC pH (7.35-7.45) POC pCO2 (35-46) mmHg POC pO2 (80-95) mmHg POC HCO3 (19-24) rosalind/L POC Base Excess (-9-1.8) rosalind/L ABG pH (Temp Correct) (7.35-7.45) ABG pCO2 (Temp Corrct (35-46) mmHg POC ABG pO2 at Pt Temp POC ABG O2 Sat (90-95) % Berto Test VBG pH 7.23 L (7.36-7.41) VBG pCO2 (38-50) mmHg VBG pO2 mmHg VBG HCO3 mmol/L VBG O2 Saturation % VBG Base Excess mEq/L Barometric Pressure mm/Hg O2 Delivery Device POC O2 Rate POC FiO2 % Tidal Volume PEEP POC Sodium (135-144) mmol/L Sodium 138 (136-145) mmol/L POC Potassium (3.3-5.0) mmol/L Potassium 4.9 (3.5-5.1) mmol/L POC Chloride (101-112) mmol/L Chloride 97 L (98-107) mmol/L Carbon Dioxide 30 (21-32) mmol/L POC Total CO2 (24-31) mmol/L Anion Gap 11 (3-11) POC Anion Gap (16-25) mmol/L POC BUN (7-18) mg/dl BUN 30 H (6-23) mg/dl Creatinine 1.35 H (0.6-1.2) mg/dl POC Creatinine (0.6-1.3) mg/dl Est Cr Clr Drug Dosing 42.2 Est GFR ( Amer) 47.0 ml/min Est GFR (Non-Af Amer) 40.5 ml/min BUN/Creatinine Ratio 22.2 H (10-20) Glucose 101 H (70-99(Fasting)) mg/dl POC Glucose (70-99) mg/dl POC Glucose (other) (70-99) mg/dl Estimat Average Glucose mg/dl Hemoglobin A1c (4.5-5.6) % Lactate (0.4-2.0) mmol/L Calcium 9.2 (8.5-10.1) mg/dl POC Ioniz Calcium Steffany (1.12-1.32) mmol/l Phosphorus (2.5-4.9) mg/dl Magnesium (1.7-2.4) mg/dl Total Bilirubin (0.2-1.0) mg/dl Direct Bilirubin (0-0.2) mg/dl AST (13-39) U/L ALT (7-52) U/L Alkaline Phosphatase (34-104) U/L Total Creatine Kinase (26-192) U/L Troponin I High Sens (0-14) pg/ml Total Protein (6.0-8.3) gm/dl Albumin (3.4-5.0) gm/dl Globulin (2.5-4.0) gm/dl Albumin/Globulin Ratio (0.9-2) Lipase (11-82) U/L Urine Color Urine Appearance (Clear) Urine pH (4.5-7.5) Ur Specific Monroe (1.000-1.030) Urine Protein (Negative) Urine Glucose (UA) (Negative) Urine Ketones (Negative) Urine Blood (Negative) Urine Nitrite (Negative) Urine Bilirubin (Negative) Urine Urobilinogen (Negative) Ur Leukocyte Esterase (Negative) Urine WBC (Auto) (0-5) /hpf Urine RBC (Auto) (0-4) /hpf U Hyaline Cast (Auto) (0-5) /lpf U Epithel Cells (Auto) (0-5) /lpf Urine Bacteria (Auto) (Negative) Fluid Comment CSF Appearance CSF Color Xanthrochromic CSF WBC (0-5) /uL CSF RBC (0-) /uL CSF Cell Count Tube # CSF Chemistry Tube # CSF Glucose (40-70) mg/dl CSF LDH CSF Lactate (0.6-2.2) mmol/L CSF Total Protein (15-45) mg/dl CSF C.neoform/gat PCR (NotDetected) CSF CMV DNA (PCR) (NotDetected) CSF Enterovirus (PCR) (NotDetected) CSF E. coli K1 (PCR) (NotDetected) CSF H. influenzae (PCR) (NotDetected) CSF HSV I (PCR) (NotDetected) CSF HSV II (PCR) (NotDetected) CSF HHV 6 (PCR) (NotDetected) CSF L.monocytogenes PCR (NotDetected) CSF N. meningitidis PCR (NotDetected) CSF Parechovirus (PCR) (NotDetected) CSF S. agalactiae (PCR) (NotDetected) CSF S. pneumoniae (PCR) (NotDetected) CSF VZV DNA (PCR) (NotDetected) Nasal Screen MRSA (PCR) (Negative) Salicylates (3.0-30) mg/dl Urine Opiates Screen (Neg) Ur Methadone, Qual (Neg) Acetaminophen (10-30) ug/ml Urine Barbiturates (Neg) Levetiracetam Pending Ur Phencyclidine (PCP) (Neg) U Amphetamin/Meth Scrn (Neg) MDMA (Ecstasy) Screen (Neg) U Benzodiazepines Scrn (Neg) Ur Cocaine Metabolite (Neg) U Marijuana (THC) Screen (Neg) Ethyl Alcohol mg/dL (<10.0) mg/dl Adenovirus (PCR) (NotDetected) B. pertussis DNA (PCR) (NotDetected) B.parapertussis DNA PCR (NotDetected) Lyme Disease IgG Ab (Negative) Lyme Disease IgM Ab (Negative) C. pneumoniae DNA (PCR) (NotDetected) Coronavirus OC43 (PCR) (NotDetected) Coronavirus HKU1 (PCR) (NotDetected) Coronavirus 229E (PCR) (NotDetected) SARS-CoV-2 (PCR) (NotDetected) Coronavirus NL63 (PCR) (NotDetected) Cryptococcus Source Cryptococcal Ag (Latex) Human Metapneumovir PCR (NotDetected) Influenza Type A (PCR) (NotDetected) Influenza Type B (PCR) (NotDetected) M. pneumoniae (PCR) (NotDetected) Parainfluenza 1 (PCR) (NotDetected) Parainfluenza 2 (PCR) (NotDetected) Parainfluenza 3 (PCR) (NotDetected) Parainfluenza 4 (PCR) (NotDetected) RSV (PCR) (NotDetected) Entero/Rhino (PCR) (NotDetected) SARS-CoV-2, RNA, NAAT (NEGATIVE) 02/20/22 02/20/22 02/20/22 Range/Units 18:27 16:08 16:07 WBC (4.8-10.8) K/uL RBC (4.2-5.4) M/uL Hgb (12.0-16.0) g/dL POC Hgb (12.0-16.0) g/dl Hct (37-47) % POC Hct (37-47) % MCV (80-100) fL MCH (25-34) pg MCHC (32-36) g/dL RDW Std Deviation (36.4-46.3) fL RDW Coeff of Ana (11.5-14.5) % Plt Count (130-400) K/uL MPV (7.4-10.4) fL Immature Gran % (Auto) % Neut % (Auto) % Lymph % (Auto) % Perry % (Auto) % Eos % (Auto) % Baso % (Auto) % Neut # (Auto) (1.4-6.5) K/uL Lymph # (Auto) (1.2-3.4) K/uL Perry # (Auto) (0.11-0.59) K/uL Eos # (Auto) (0-0.5) K/uL Baso # (Auto) (0-0.2) K/uL Immature Gran # (Auto) (0.00-0.02) K/uL PT (9.0-12.0) Seconds INR (0.9-1.1) APTT (21.0-31.0) Seconds PTT Ratio Sample Site POC pH (7.35-7.45) POC pCO2 (35-46) mmHg POC pO2 (80-95) mmHg POC HCO3 (19-24) rosalind/L POC Base Excess (-9-1.8) rosalind/L ABG pH (Temp Correct) (7.35-7.45) ABG pCO2 (Temp Corrct (35-46) mmHg POC ABG pO2 at Pt Temp POC ABG O2 Sat (90-95) % Berto Test VBG pH (7.36-7.41) VBG pCO2 (38-50) mmHg VBG pO2 mmHg VBG HCO3 mmol/L VBG O2 Saturation % VBG Base Excess mEq/L Barometric Pressure mm/Hg O2 Delivery Device POC O2 Rate POC FiO2 % Tidal Volume PEEP POC Sodium (135-144) mmol/L Sodium (136-145) mmol/L POC Potassium (3.3-5.0) mmol/L Potassium (3.5-5.1) mmol/L POC Chloride (101-112) mmol/L Chloride (98-107) mmol/L Carbon Dioxide (21-32) mmol/L POC Total CO2 (24-31) mmol/L Anion Gap (3-11) POC Anion Gap (16-25) mmol/L POC BUN (7-18) mg/dl BUN (6-23) mg/dl Creatinine (0.6-1.2) mg/dl POC Creatinine (0.6-1.3) mg/dl Est Cr Clr Drug Dosing Est GFR ( Amer) ml/min Est GFR (Non-Af Amer) ml/min BUN/Creatinine Ratio (10-20) Glucose (70-99(Fasting)) mg/dl POC Glucose (70-99) mg/dl POC Glucose (other) (70-99) mg/dl Estimat Average Glucose mg/dl Hemoglobin A1c (4.5-5.6) % Lactate (0.4-2.0) mmol/L Calcium (8.5-10.1) mg/dl POC Ioniz Calcium Steffany (1.12-1.32) mmol/l Phosphorus (2.5-4.9) mg/dl Magnesium (1.7-2.4) mg/dl Total Bilirubin (0.2-1.0) mg/dl Direct Bilirubin (0-0.2) mg/dl AST (13-39) U/L ALT (7-52) U/L Alkaline Phosphatase (34-104) U/L Total Creatine Kinase (26-192) U/L Troponin I High Sens 120.0 H* D (0-14) pg/ml Total Protein (6.0-8.3) gm/dl Albumin (3.4-5.0) gm/dl Globulin (2.5-4.0) gm/dl Albumin/Globulin Ratio (0.9-2) Lipase (11-82) U/L Urine Color Urine Appearance (Clear) Urine pH (4.5-7.5) Ur Specific Monroe (1.000-1.030) Urine Protein (Negative) Urine Glucose (UA) (Negative) Urine Ketones (Negative) Urine Blood (Negative) Urine Nitrite (Negative) Urine Bilirubin (Negative) Urine Urobilinogen (Negative) Ur Leukocyte Esterase (Negative) Urine WBC (Auto) (0-5) /hpf Urine RBC (Auto) (0-4) /hpf U Hyaline Cast (Auto) (0-5) /lpf U Epithel Cells (Auto) (0-5) /lpf Urine Bacteria (Auto) (Negative) Fluid Comment CSF Appearance CSF Color Xanthrochromic CSF WBC (0-5) /uL CSF RBC (0-) /uL CSF Cell Count Tube # CSF Chemistry Tube # CSF Glucose (40-70) mg/dl CSF LDH CSF Lactate (0.6-2.2) mmol/L CSF Total Protein (15-45) mg/dl CSF C.neoform/gat PCR (NotDetected) CSF CMV DNA (PCR) (NotDetected) CSF Enterovirus (PCR) (NotDetected) CSF E. coli K1 (PCR) (NotDetected) CSF H. influenzae (PCR) (NotDetected) CSF HSV I (PCR) (NotDetected) CSF HSV II (PCR) (NotDetected) CSF HHV 6 (PCR) (NotDetected) CSF L.monocytogenes PCR (NotDetected) CSF N. meningitidis PCR (NotDetected) CSF Parechovirus (PCR) (NotDetected) CSF S. agalactiae (PCR) (NotDetected) CSF S. pneumoniae (PCR) (NotDetected) CSF VZV DNA (PCR) (NotDetected) Nasal Screen MRSA (PCR) Negative (Negative) Salicylates (3.0-30) mg/dl Urine Opiates Screen (Neg) Ur Methadone, Qual (Neg) Acetaminophen (10-30) ug/ml Urine Barbiturates (Neg) Levetiracetam Ur Phencyclidine (PCP) (Neg) U Amphetamin/Meth Scrn (Neg) MDMA (Ecstasy) Screen (Neg) U Benzodiazepines Scrn (Neg) Ur Cocaine Metabolite (Neg) U Marijuana (THC) Screen (Neg) Ethyl Alcohol mg/dL (<10.0) mg/dl Adenovirus (PCR) (NotDetected) B. pertussis DNA (PCR) (NotDetected) B.parapertussis DNA PCR (NotDetected) Lyme Disease IgG Ab Negative (Negative) Lyme Disease IgM Ab Negative (Negative) C. pneumoniae DNA (PCR) (NotDetected) Coronavirus OC43 (PCR) (NotDetected) Coronavirus HKU1 (PCR) (NotDetected) Coronavirus 229E (PCR) (NotDetected) SARS-CoV-2 (PCR) (NotDetected) Coronavirus NL63 (PCR) (NotDetected) Cryptococcus Source Cryptococcal Ag (Latex) Human Metapneumovir PCR (NotDetected) Influenza Type A (PCR) (NotDetected) Influenza Type B (PCR) (NotDetected) M. pneumoniae (PCR) (NotDetected) Parainfluenza 1 (PCR) (NotDetected) Parainfluenza 2 (PCR) (NotDetected) Parainfluenza 3 (PCR) (NotDetected) Parainfluenza 4 (PCR) (NotDetected) RSV (PCR) (NotDetected) Entero/Rhino (PCR) (NotDetected) SARS-CoV-2, RNA, NAAT (NEGATIVE) 02/20/22 02/20/22 02/20/22 Range/Units 15:30 15:30 15:30 WBC (4.8-10.8) K/uL RBC (4.2-5.4) M/uL Hgb (12.0-16.0) g/dL POC Hgb (12.0-16.0) g/dl Hct (37-47) % POC Hct (37-47) % MCV (80-100) fL MCH (25-34) pg MCHC (32-36) g/dL RDW Std Deviation (36.4-46.3) fL RDW Coeff of Ana (11.5-14.5) % Plt Count (130-400) K/uL MPV (7.4-10.4) fL Immature Gran % (Auto) % Neut % (Auto) % Lymph % (Auto) % Perry % (Auto) % Eos % (Auto) % Baso % (Auto) % Neut # (Auto) (1.4-6.5) K/uL Lymph # (Auto) (1.2-3.4) K/uL Perry # (Auto) (0.11-0.59) K/uL Eos # (Auto) (0-0.5) K/uL Baso # (Auto) (0-0.2) K/uL Immature Gran # (Auto) (0.00-0.02) K/uL PT (9.0-12.0) Seconds INR (0.9-1.1) APTT (21.0-31.0) Seconds PTT Ratio Sample Site POC pH (7.35-7.45) POC pCO2 (35-46) mmHg POC pO2 (80-95) mmHg POC HCO3 (19-24) rosalind/L POC Base Excess (-9-1.8) rosalind/L ABG pH (Temp Correct) (7.35-7.45) ABG pCO2 (Temp Corrct (35-46) mmHg POC ABG pO2 at Pt Temp POC ABG O2 Sat (90-95) % Berto Test VBG pH (7.36-7.41) VBG pCO2 (38-50) mmHg VBG pO2 mmHg VBG HCO3 mmol/L VBG O2 Saturation % VBG Base Excess mEq/L Barometric Pressure mm/Hg O2 Delivery Device POC O2 Rate POC FiO2 % Tidal Volume PEEP POC Sodium (135-144) mmol/L Sodium (136-145) mmol/L POC Potassium (3.3-5.0) mmol/L Potassium (3.5-5.1) mmol/L POC Chloride (101-112) mmol/L Chloride (98-107) mmol/L Carbon Dioxide (21-32) mmol/L POC Total CO2 (24-31) mmol/L Anion Gap (3-11) POC Anion Gap (16-25) mmol/L POC BUN (7-18) mg/dl BUN (6-23) mg/dl Creatinine (0.6-1.2) mg/dl POC Creatinine (0.6-1.3) mg/dl Est Cr Clr Drug Dosing Est GFR ( Amer) ml/min Est GFR (Non-Af Amer) ml/min BUN/Creatinine Ratio (10-20) Glucose (70-99(Fasting)) mg/dl POC Glucose (70-99) mg/dl POC Glucose (other) (70-99) mg/dl Estimat Average Glucose mg/dl Hemoglobin A1c (4.5-5.6) % Lactate (0.4-2.0) mmol/L Calcium (8.5-10.1) mg/dl POC Ioniz Calcium Steffany (1.12-1.32) mmol/l Phosphorus (2.5-4.9) mg/dl Magnesium (1.7-2.4) mg/dl Total Bilirubin (0.2-1.0) mg/dl Direct Bilirubin (0-0.2) mg/dl AST (13-39) U/L ALT (7-52) U/L Alkaline Phosphatase (34-104) U/L Total Creatine Kinase (26-192) U/L Troponin I High Sens (0-14) pg/ml Total Protein (6.0-8.3) gm/dl Albumin (3.4-5.0) gm/dl Globulin (2.5-4.0) gm/dl Albumin/Globulin Ratio (0.9-2) Lipase (11-82) U/L Urine Color Urine Appearance (Clear) Urine pH (4.5-7.5) Ur Specific Monroe (1.000-1.030) Urine Protein (Negative) Urine Glucose (UA) (Negative) Urine Ketones (Negative) Urine Blood (Negative) Urine Nitrite (Negative) Urine Bilirubin (Negative) Urine Urobilinogen (Negative) Ur Leukocyte Esterase (Negative) Urine WBC (Auto) (0-5) /hpf Urine RBC (Auto) (0-4) /hpf U Hyaline Cast (Auto) (0-5) /lpf U Epithel Cells (Auto) (0-5) /lpf Urine Bacteria (Auto) (Negative) Fluid Comment CSF Appearance CSF Color Xanthrochromic CSF WBC (0-5) /uL CSF RBC (0-) /uL CSF Cell Count Tube # CSF Chemistry Tube # 1 CSF Glucose 92 H (40-70) mg/dl CSF LDH Pending CSF Lactate 2.2 (0.6-2.2) mmol/L CSF Total Protein 59.2 H (15-45) mg/dl CSF C.neoform/gat PCR (NotDetected) CSF CMV DNA (PCR) (NotDetected) CSF Enterovirus (PCR) (NotDetected) CSF E. coli K1 (PCR) (NotDetected) CSF H. influenzae (PCR) (NotDetected) CSF HSV I (PCR) (NotDetected) CSF HSV II (PCR) (NotDetected) CSF HHV 6 (PCR) (NotDetected) CSF L.monocytogenes PCR (NotDetected) CSF N. meningitidis PCR (NotDetected) CSF Parechovirus (PCR) (NotDetected) CSF S. agalactiae (PCR) (NotDetected) CSF S. pneumoniae (PCR) (NotDetected) CSF VZV DNA (PCR) (NotDetected) Nasal Screen MRSA (PCR) (Negative) Salicylates (3.0-30) mg/dl Urine Opiates Screen (Neg) Ur Methadone, Qual (Neg) Acetaminophen (10-30) ug/ml Urine Barbiturates (Neg) Levetiracetam Ur Phencyclidine (PCP) (Neg) U Amphetamin/Meth Scrn (Neg) MDMA (Ecstasy) Screen (Neg) U Benzodiazepines Scrn (Neg) Ur Cocaine Metabolite (Neg) U Marijuana (THC) Screen (Neg) Ethyl Alcohol mg/dL (<10.0) mg/dl Adenovirus (PCR) (NotDetected) B. pertussis DNA (PCR) (NotDetected) B.parapertussis DNA PCR (NotDetected) Lyme Disease IgG Ab (Negative) Lyme Disease IgM Ab (Negative) C. pneumoniae DNA (PCR) (NotDetected) Coronavirus OC43 (PCR) (NotDetected) Coronavirus HKU1 (PCR) (NotDetected) Coronavirus 229E (PCR) (NotDetected) SARS-CoV-2 (PCR) (NotDetected) Coronavirus NL63 (PCR) (NotDetected) Cryptococcus Source Cryptococcal Ag (Latex) Human Metapneumovir PCR (NotDetected) Influenza Type A (PCR) (NotDetected) Influenza Type B (PCR) (NotDetected) M. pneumoniae (PCR) (NotDetected) Parainfluenza 1 (PCR) (NotDetected) Parainfluenza 2 (PCR) (NotDetected) Parainfluenza 3 (PCR) (NotDetected) Parainfluenza 4 (PCR) (NotDetected) RSV (PCR) (NotDetected) Entero/Rhino (PCR) (NotDetected) SARS-CoV-2, RNA, NAAT (NEGATIVE) 02/20/22 02/20/22 02/20/22 Range/Units 15:30 15:30 15:30 WBC (4.8-10.8) K/uL RBC (4.2-5.4) M/uL Hgb (12.0-16.0) g/dL POC Hgb (12.0-16.0) g/dl Hct (37-47) % POC Hct (37-47) % MCV (80-100) fL MCH (25-34) pg MCHC (32-36) g/dL RDW Std Deviation (36.4-46.3) fL RDW Coeff of Ana (11.5-14.5) % Plt Count (130-400) K/uL MPV (7.4-10.4) fL Immature Gran % (Auto) % Neut % (Auto) % Lymph % (Auto) % Perry % (Auto) % Eos % (Auto) % Baso % (Auto) % Neut # (Auto) (1.4-6.5) K/uL Lymph # (Auto) (1.2-3.4) K/uL Perry # (Auto) (0.11-0.59) K/uL Eos # (Auto) (0-0.5) K/uL Baso # (Auto) (0-0.2) K/uL Immature Gran # (Auto) (0.00-0.02) K/uL PT (9.0-12.0) Seconds INR (0.9-1.1) APTT (21.0-31.0) Seconds PTT Ratio Sample Site POC pH (7.35-7.45) POC pCO2 (35-46) mmHg POC pO2 (80-95) mmHg POC HCO3 (19-24) rosalind/L POC Base Excess (-9-1.8) rosalind/L ABG pH (Temp Correct) (7.35-7.45) ABG pCO2 (Temp Corrct (35-46) mmHg POC ABG pO2 at Pt Temp POC ABG O2 Sat (90-95) % Berto Test VBG pH (7.36-7.41) VBG pCO2 (38-50) mmHg VBG pO2 mmHg VBG HCO3 mmol/L VBG O2 Saturation % VBG Base Excess mEq/L Barometric Pressure mm/Hg O2 Delivery Device POC O2 Rate POC FiO2 % Tidal Volume PEEP POC Sodium (135-144) mmol/L Sodium (136-145) mmol/L POC Potassium (3.3-5.0) mmol/L Potassium (3.5-5.1) mmol/L POC Chloride (101-112) mmol/L Chloride (98-107) mmol/L Carbon Dioxide (21-32) mmol/L POC Total CO2 (24-31) mmol/L Anion Gap (3-11) POC Anion Gap (16-25) mmol/L POC BUN (7-18) mg/dl BUN (6-23) mg/dl Creatinine (0.6-1.2) mg/dl POC Creatinine (0.6-1.3) mg/dl Est Cr Clr Drug Dosing Est GFR ( Amer) ml/min Est GFR (Non-Af Amer) ml/min BUN/Creatinine Ratio (10-20) Glucose (70-99(Fasting)) mg/dl POC Glucose (70-99) mg/dl POC Glucose (other) (70-99) mg/dl Estimat Average Glucose mg/dl Hemoglobin A1c (4.5-5.6) % Lactate (0.4-2.0) mmol/L Calcium (8.5-10.1) mg/dl POC Ioniz Calcium Steffany (1.12-1.32) mmol/l Phosphorus (2.5-4.9) mg/dl Magnesium (1.7-2.4) mg/dl Total Bilirubin (0.2-1.0) mg/dl Direct Bilirubin (0-0.2) mg/dl AST (13-39) U/L ALT (7-52) U/L Alkaline Phosphatase (34-104) U/L Total Creatine Kinase (26-192) U/L Troponin I High Sens (0-14) pg/ml Total Protein (6.0-8.3) gm/dl Albumin (3.4-5.0) gm/dl Globulin (2.5-4.0) gm/dl Albumin/Globulin Ratio (0.9-2) Lipase (11-82) U/L Urine Color Urine Appearance (Clear) Urine pH (4.5-7.5) Ur Specific Monroe (1.000-1.030) Urine Protein (Negative) Urine Glucose (UA) (Negative) Urine Ketones (Negative) Urine Blood (Negative) Urine Nitrite (Negative) Urine Bilirubin (Negative) Urine Urobilinogen (Negative) Ur Leukocyte Esterase (Negative) Urine WBC (Auto) (0-5) /hpf Urine RBC (Auto) (0-4) /hpf U Hyaline Cast (Auto) (0-5) /lpf U Epithel Cells (Auto) (0-5) /lpf Urine Bacteria (Auto) (Negative) Fluid Comment CSF Appearance Clear CSF Color Colorless Xanthrochromic No xanthochromia CSF WBC 0 (0-5) /uL CSF RBC 10 (0-) /uL CSF Cell Count Tube # 3 CSF Chemistry Tube # CSF Glucose (40-70) mg/dl CSF LDH CSF Lactate (0.6-2.2) mmol/L CSF Total Protein (15-45) mg/dl CSF C.neoform/gat PCR Not Detected (NotDetected) CSF CMV DNA (PCR) Not Detected (NotDetected) CSF Enterovirus (PCR) Not Detected (NotDetected) CSF E. coli K1 (PCR) Not Detected (NotDetected) CSF H. influenzae (PCR) Not Detected (NotDetected) CSF HSV I (PCR) Not Detected (NotDetected) CSF HSV II (PCR) Not Detected (NotDetected) CSF HHV 6 (PCR) Not Detected (NotDetected) CSF L.monocytogenes PCR Not Detected (NotDetected) CSF N. meningitidis PCR Not Detected (NotDetected) CSF Parechovirus (PCR) Not Detected (NotDetected) CSF S. agalactiae (PCR) Not Detected (NotDetected) CSF S. pneumoniae (PCR) Not Detected (NotDetected) CSF VZV DNA (PCR) Not Detected (NotDetected) Nasal Screen MRSA (PCR) (Negative) Salicylates (3.0-30) mg/dl Urine Opiates Screen (Neg) Ur Methadone, Qual (Neg) Acetaminophen (10-30) ug/ml Urine Barbiturates (Neg) Levetiracetam Ur Phencyclidine (PCP) (Neg) U Amphetamin/Meth Scrn (Neg) MDMA (Ecstasy) Screen (Neg) U Benzodiazepines Scrn (Neg) Ur Cocaine Metabolite (Neg) U Marijuana (THC) Screen (Neg) Ethyl Alcohol mg/dL (<10.0) mg/dl Adenovirus (PCR) (NotDetected) B. pertussis DNA (PCR) (NotDetected) B.parapertussis DNA PCR (NotDetected) Lyme Disease IgG Ab (Negative) Lyme Disease IgM Ab (Negative) C. pneumoniae DNA (PCR) (NotDetected) Coronavirus OC43 (PCR) (NotDetected) Coronavirus HKU1 (PCR) (NotDetected) Coronavirus 229E (PCR) (NotDetected) SARS-CoV-2 (PCR) (NotDetected) Coronavirus NL63 (PCR) (NotDetected) Cryptococcus Source Pending Cryptococcal Ag (Latex) Pending Human Metapneumovir PCR (NotDetected) Influenza Type A (PCR) (NotDetected) Influenza Type B (PCR) (NotDetected) M. pneumoniae (PCR) (NotDetected) Parainfluenza 1 (PCR) (NotDetected) Parainfluenza 2 (PCR) (NotDetected) Parainfluenza 3 (PCR) (NotDetected) Parainfluenza 4 (PCR) (NotDetected) RSV (PCR) (NotDetected) Entero/Rhino (PCR) (NotDetected) SARS-CoV-2, RNA, NAAT (NEGATIVE) 02/20/22 02/20/22 02/20/22 Range/Units 13:45 13:43 13:43 WBC (4.8-10.8) K/uL RBC (4.2-5.4) M/uL Hgb (12.0-16.0) g/dL POC Hgb (12.0-16.0) g/dl Hct (37-47) % POC Hct (37-47) % MCV (80-100) fL MCH (25-34) pg MCHC (32-36) g/dL RDW Std Deviation (36.4-46.3) fL RDW Coeff of Ana (11.5-14.5) % Plt Count (130-400) K/uL MPV (7.4-10.4) fL Immature Gran % (Auto) % Neut % (Auto) % Lymph % (Auto) % Perry % (Auto) % Eos % (Auto) % Baso % (Auto) % Neut # (Auto) (1.4-6.5) K/uL Lymph # (Auto) (1.2-3.4) K/uL Perry # (Auto) (0.11-0.59) K/uL Eos # (Auto) (0-0.5) K/uL Baso # (Auto) (0-0.2) K/uL Immature Gran # (Auto) (0.00-0.02) K/uL PT (9.0-12.0) Seconds INR (0.9-1.1) APTT (21.0-31.0) Seconds PTT Ratio Sample Site POC pH (7.35-7.45) POC pCO2 (35-46) mmHg POC pO2 (80-95) mmHg POC HCO3 (19-24) rosalind/L POC Base Excess (-9-1.8) rosalind/L ABG pH (Temp Correct) (7.35-7.45) ABG pCO2 (Temp Corrct (35-46) mmHg POC ABG pO2 at Pt Temp POC ABG O2 Sat (90-95) % Berto Test VBG pH 7.18 L (7.36-7.41) VBG pCO2 87 H (38-50) mmHg VBG pO2 27 mmHg VBG HCO3 32 mmol/L VBG O2 Saturation < 60.0 % VBG Base Excess 0.7 mEq/L Barometric Pressure 731.7 mm/Hg O2 Delivery Device POC O2 Rate POC FiO2 % Tidal Volume PEEP POC Sodium (135-144) mmol/L Sodium (136-145) mmol/L POC Potassium (3.3-5.0) mmol/L Potassium (3.5-5.1) mmol/L POC Chloride (101-112) mmol/L Chloride (98-107) mmol/L Carbon Dioxide (21-32) mmol/L POC Total CO2 (24-31) mmol/L Anion Gap (3-11) POC Anion Gap (16-25) mmol/L POC BUN (7-18) mg/dl BUN (6-23) mg/dl Creatinine (0.6-1.2) mg/dl POC Creatinine (0.6-1.3) mg/dl Est Cr Clr Drug Dosing Est GFR ( Amer) ml/min Est GFR (Non-Af Amer) ml/min BUN/Creatinine Ratio (10-20) Glucose (70-99(Fasting)) mg/dl POC Glucose (70-99) mg/dl POC Glucose (other) (70-99) mg/dl Estimat Average Glucose mg/dl Hemoglobin A1c (4.5-5.6) % Lactate 1.2 (0.4-2.0) mmol/L Calcium (8.5-10.1) mg/dl POC Ioniz Calcium Steffany (1.12-1.32) mmol/l Phosphorus (2.5-4.9) mg/dl Magnesium (1.7-2.4) mg/dl Total Bilirubin (0.2-1.0) mg/dl Direct Bilirubin (0-0.2) mg/dl AST (13-39) U/L ALT (7-52) U/L Alkaline Phosphatase (34-104) U/L Total Creatine Kinase (26-192) U/L Troponin I High Sens (0-14) pg/ml Total Protein (6.0-8.3) gm/dl Albumin (3.4-5.0) gm/dl Globulin (2.5-4.0) gm/dl Albumin/Globulin Ratio (0.9-2) Lipase (11-82) U/L Urine Color Urine Appearance (Clear) Urine pH (4.5-7.5) Ur Specific Monroe (1.000-1.030) Urine Protein (Negative) Urine Glucose (UA) (Negative) Urine Ketones (Negative) Urine Blood (Negative) Urine Nitrite (Negative) Urine Bilirubin (Negative) Urine Urobilinogen (Negative) Ur Leukocyte Esterase (Negative) Urine WBC (Auto) (0-5) /hpf Urine RBC (Auto) (0-4) /hpf U Hyaline Cast (Auto) (0-5) /lpf U Epithel Cells (Auto) (0-5) /lpf Urine Bacteria (Auto) (Negative) Fluid Comment CSF Appearance CSF Color Xanthrochromic CSF WBC (0-5) /uL CSF RBC (0-) /uL CSF Cell Count Tube # CSF Chemistry Tube # CSF Glucose (40-70) mg/dl CSF LDH CSF Lactate (0.6-2.2) mmol/L CSF Total Protein (15-45) mg/dl CSF C.neoform/gat PCR (NotDetected) CSF CMV DNA (PCR) (NotDetected) CSF Enterovirus (PCR) (NotDetected) CSF E. coli K1 (PCR) (NotDetected) CSF H. influenzae (PCR) (NotDetected) CSF HSV I (PCR) (NotDetected) CSF HSV II (PCR) (NotDetected) CSF HHV 6 (PCR) (NotDetected) CSF L.monocytogenes PCR (NotDetected) CSF N. meningitidis PCR (NotDetected) CSF Parechovirus (PCR) (NotDetected) CSF S. agalactiae (PCR) (NotDetected) CSF S. pneumoniae (PCR) (NotDetected) CSF VZV DNA (PCR) (NotDetected) Nasal Screen MRSA (PCR) (Negative) Salicylates (3.0-30) mg/dl Urine Opiates Screen (Neg) Ur Methadone, Qual (Neg) Acetaminophen (10-30) ug/ml Urine Barbiturates (Neg) Levetiracetam Ur Phencyclidine (PCP) (Neg) U Amphetamin/Meth Scrn (Neg) MDMA (Ecstasy) Screen (Neg) U Benzodiazepines Scrn (Neg) Ur Cocaine Metabolite (Neg) U Marijuana (THC) Screen (Neg) Ethyl Alcohol mg/dL < 10.0 (<10.0) mg/dl Adenovirus (PCR) (NotDetected) B. pertussis DNA (PCR) (NotDetected) B.parapertussis DNA PCR (NotDetected) Lyme Disease IgG Ab (Negative) Lyme Disease IgM Ab (Negative) C. pneumoniae DNA (PCR) (NotDetected) Coronavirus OC43 (PCR) (NotDetected) Coronavirus HKU1 (PCR) (NotDetected) Coronavirus 229E (PCR) (NotDetected) SARS-CoV-2 (PCR) (NotDetected) Coronavirus NL63 (PCR) (NotDetected) Cryptococcus Source Cryptococcal Ag (Latex) Human Metapneumovir PCR (NotDetected) Influenza Type A (PCR) (NotDetected) Influenza Type B (PCR) (NotDetected) M. pneumoniae (PCR) (NotDetected) Parainfluenza 1 (PCR) (NotDetected) Parainfluenza 2 (PCR) (NotDetected) Parainfluenza 3 (PCR) (NotDetected) Parainfluenza 4 (PCR) (NotDetected) RSV (PCR) (NotDetected) Entero/Rhino (PCR) (NotDetected) SARS-CoV-2, RNA, NAAT (NEGATIVE) 02/20/22 02/20/22 02/20/22 Range/Units 12:35 12:30 12:30 WBC (4.8-10.8) K/uL RBC (4.2-5.4) M/uL Hgb (12.0-16.0) g/dL POC Hgb 13.9 (12.0-16.0) g/dl Hct (37-47) % POC Hct 41 (37-47) % MCV (80-100) fL MCH (25-34) pg MCHC (32-36) g/dL RDW Std Deviation (36.4-46.3) fL RDW Coeff of Ana (11.5-14.5) % Plt Count (130-400) K/uL MPV (7.4-10.4) fL Immature Gran % (Auto) % Neut % (Auto) % Lymph % (Auto) % Perry % (Auto) % Eos % (Auto) % Baso % (Auto) % Neut # (Auto) (1.4-6.5) K/uL Lymph # (Auto) (1.2-3.4) K/uL Perry # (Auto) (0.11-0.59) K/uL Eos # (Auto) (0-0.5) K/uL Baso # (Auto) (0-0.2) K/uL Immature Gran # (Auto) (0.00-0.02) K/uL PT (9.0-12.0) Seconds INR (0.9-1.1) APTT (21.0-31.0) Seconds PTT Ratio Sample Site POC pH (7.35-7.45) POC pCO2 (35-46) mmHg POC pO2 (80-95) mmHg POC HCO3 (19-24) rosalind/L POC Base Excess (-9-1.8) rosalind/L ABG pH (Temp Correct) (7.35-7.45) ABG pCO2 (Temp Corrct (35-46) mmHg POC ABG pO2 at Pt Temp POC ABG O2 Sat (90-95) % Berto Test VBG pH (7.36-7.41) VBG pCO2 (38-50) mmHg VBG pO2 mmHg VBG HCO3 mmol/L VBG O2 Saturation % VBG Base Excess mEq/L Barometric Pressure mm/Hg O2 Delivery Device POC O2 Rate POC FiO2 % Tidal Volume PEEP POC Sodium 137 (135-144) mmol/L Sodium (136-145) mmol/L POC Potassium 5.7 H (3.3-5.0) mmol/L Potassium (3.5-5.1) mmol/L POC Chloride 97 L (101-112) mmol/L Chloride (98-107) mmol/L Carbon Dioxide (21-32) mmol/L POC Total CO2 33 H (24-31) mmol/L Anion Gap (3-11) POC Anion Gap 14.0 L (16-25) mmol/L POC BUN 31 H (7-18) mg/dl BUN (6-23) mg/dl Creatinine (0.6-1.2) mg/dl POC Creatinine 1.4 H (0.6-1.3) mg/dl Est Cr Clr Drug Dosing Est GFR ( Amer) ml/min Est GFR (Non-Af Amer) ml/min BUN/Creatinine Ratio (10-20) Glucose (70-99(Fasting)) mg/dl POC Glucose (70-99) mg/dl POC Glucose (other) 168 H (70-99) mg/dl Estimat Average Glucose mg/dl Hemoglobin A1c (4.5-5.6) % Lactate (0.4-2.0) mmol/L Calcium (8.5-10.1) mg/dl POC Ioniz Calcium Steffany 1.24 (1.12-1.32) mmol/l Phosphorus (2.5-4.9) mg/dl Magnesium (1.7-2.4) mg/dl Total Bilirubin (0.2-1.0) mg/dl Direct Bilirubin (0-0.2) mg/dl AST (13-39) U/L ALT (7-52) U/L Alkaline Phosphatase (34-104) U/L Total Creatine Kinase (26-192) U/L Troponin I High Sens (0-14) pg/ml Total Protein (6.0-8.3) gm/dl Albumin (3.4-5.0) gm/dl Globulin (2.5-4.0) gm/dl Albumin/Globulin Ratio (0.9-2) Lipase (11-82) U/L Urine Color Yellow Urine Appearance Clear (Clear) Urine pH 5.0 (4.5-7.5) Ur Specific Monroe 1.022 (1.000-1.030) Urine Protein 1+ H (Negative) Urine Glucose (UA) Negative (Negative) Urine Ketones Trace H (Negative) Urine Blood Negative (Negative) Urine Nitrite Negative (Negative) Urine Bilirubin Negative (Negative) Urine Urobilinogen Negative (Negative) Ur Leukocyte Esterase 1+ H (Negative) Urine WBC (Auto) 10-30 H (0-5) /hpf Urine RBC (Auto) 5-10 H (0-4) /hpf U Hyaline Cast (Auto) 0 (0-5) /lpf U Epithel Cells (Auto) >30 H (0-5) /lpf Urine Bacteria (Auto) 1+ H (Negative) Fluid Comment CSF Appearance CSF Color Xanthrochromic CSF WBC (0-5) /uL CSF RBC (0-) /uL CSF Cell Count Tube # CSF Chemistry Tube # CSF Glucose (40-70) mg/dl CSF LDH CSF Lactate (0.6-2.2) mmol/L CSF Total Protein (15-45) mg/dl CSF C.neoform/gat PCR (NotDetected) CSF CMV DNA (PCR) (NotDetected) CSF Enterovirus (PCR) (NotDetected) CSF E. coli K1 (PCR) (NotDetected) CSF H. influenzae (PCR) (NotDetected) CSF HSV I (PCR) (NotDetected) CSF HSV II (PCR) (NotDetected) CSF HHV 6 (PCR) (NotDetected) CSF L.monocytogenes PCR (NotDetected) CSF N. meningitidis PCR (NotDetected) CSF Parechovirus (PCR) (NotDetected) CSF S. agalactiae (PCR) (NotDetected) CSF S. pneumoniae (PCR) (NotDetected) CSF VZV DNA (PCR) (NotDetected) Nasal Screen MRSA (PCR) (Negative) Salicylates (3.0-30) mg/dl Urine Opiates Screen Neg (Neg) Ur Methadone, Qual Neg (Neg) Acetaminophen (10-30) ug/ml Urine Barbiturates Neg (Neg) Levetiracetam Ur Phencyclidine (PCP) Neg (Neg) U Amphetamin/Meth Scrn Neg (Neg) MDMA (Ecstasy) Screen Neg (Neg) U Benzodiazepines Scrn Neg (Neg) Ur Cocaine Metabolite Neg (Neg) U Marijuana (THC) Screen Neg (Neg) Ethyl Alcohol mg/dL (<10.0) mg/dl Adenovirus (PCR) (NotDetected) B. pertussis DNA (PCR) (NotDetected) B.parapertussis DNA PCR (NotDetected) Lyme Disease IgG Ab (Negative) Lyme Disease IgM Ab (Negative) C. pneumoniae DNA (PCR) (NotDetected) Coronavirus OC43 (PCR) (NotDetected) Coronavirus HKU1 (PCR) (NotDetected) Coronavirus 229E (PCR) (NotDetected) SARS-CoV-2 (PCR) (NotDetected) Coronavirus NL63 (PCR) (NotDetected) Cryptococcus Source Cryptococcal Ag (Latex) Human Metapneumovir PCR (NotDetected) Influenza Type A (PCR) (NotDetected) Influenza Type B (PCR) (NotDetected) M. pneumoniae (PCR) (NotDetected) Parainfluenza 1 (PCR) (NotDetected) Parainfluenza 2 (PCR) (NotDetected) Parainfluenza 3 (PCR) (NotDetected) Parainfluenza 4 (PCR) (NotDetected) RSV (PCR) (NotDetected) Entero/Rhino (PCR) (NotDetected) SARS-CoV-2, RNA, NAAT (NEGATIVE) 02/20/22 02/20/22 02/20/22 Range/Units 12:30 12:30 12:30 WBC 11.56 H (4.8-10.8) K/uL RBC 4.68 (4.2-5.4) M/uL Hgb 13.4 (12.0-16.0) g/dL POC Hgb (12.0-16.0) g/dl Hct 41.4 (37-47) % POC Hct (37-47) % MCV 88.5 (80-100) fL MCH 28.6 (25-34) pg MCHC 32.4 (32-36) g/dL RDW Std Deviation 43.3 (36.4-46.3) fL RDW Coeff of Ana 13.3 (11.5-14.5) % Plt Count 180 (130-400) K/uL MPV 11.4 H (7.4-10.4) fL Immature Gran % (Auto) 0.3 % Neut % (Auto) 83.0 % Lymph % (Auto) 13.4 % Perry % (Auto) 1.9 % Eos % (Auto) 1.1 % Baso % (Auto) 0.3 % Neut # (Auto) 9.59 H (1.4-6.5) K/uL Lymph # (Auto) 1.55 (1.2-3.4) K/uL Perry # (Auto) 0.22 (0.11-0.59) K/uL Eos # (Auto) 0.13 (0-0.5) K/uL Baso # (Auto) 0.04 (0-0.2) K/uL Immature Gran # (Auto) 0.03 H (0.00-0.02) K/uL PT (9.0-12.0) Seconds INR (0.9-1.1) APTT (21.0-31.0) Seconds PTT Ratio Sample Site POC pH (7.35-7.45) POC pCO2 (35-46) mmHg POC pO2 (80-95) mmHg POC HCO3 (19-24) rosalind/L POC Base Excess (-9-1.8) rosalind/L ABG pH (Temp Correct) (7.35-7.45) ABG pCO2 (Temp Corrct (35-46) mmHg POC ABG pO2 at Pt Temp POC ABG O2 Sat (90-95) % Berto Test VBG pH (7.36-7.41) VBG pCO2 (38-50) mmHg VBG pO2 mmHg VBG HCO3 mmol/L VBG O2 Saturation % VBG Base Excess mEq/L Barometric Pressure mm/Hg O2 Delivery Device POC O2 Rate POC FiO2 % Tidal Volume PEEP POC Sodium (135-144) mmol/L Sodium (136-145) mmol/L POC Potassium (3.3-5.0) mmol/L Potassium (3.5-5.1) mmol/L POC Chloride (101-112) mmol/L Chloride (98-107) mmol/L Carbon Dioxide (21-32) mmol/L POC Total CO2 (24-31) mmol/L Anion Gap (3-11) POC Anion Gap (16-25) mmol/L POC BUN (7-18) mg/dl BUN (6-23) mg/dl Creatinine (0.6-1.2) mg/dl POC Creatinine (0.6-1.3) mg/dl Est Cr Clr Drug Dosing Est GFR ( Amer) ml/min Est GFR (Non-Af Amer) ml/min BUN/Creatinine Ratio (10-20) Glucose (70-99(Fasting)) mg/dl POC Glucose (70-99) mg/dl POC Glucose (other) (70-99) mg/dl Estimat Average Glucose mg/dl Hemoglobin A1c (4.5-5.6) % Lactate (0.4-2.0) mmol/L Calcium (8.5-10.1) mg/dl POC Ioniz Calcium Steffany (1.12-1.32) mmol/l Phosphorus (2.5-4.9) mg/dl Magnesium (1.7-2.4) mg/dl Total Bilirubin (0.2-1.0) mg/dl Direct Bilirubin (0-0.2) mg/dl AST (13-39) U/L ALT (7-52) U/L Alkaline Phosphatase (34-104) U/L Total Creatine Kinase (26-192) U/L Troponin I High Sens (0-14) pg/ml Total Protein (6.0-8.3) gm/dl Albumin (3.4-5.0) gm/dl Globulin (2.5-4.0) gm/dl Albumin/Globulin Ratio (0.9-2) Lipase (11-82) U/L Urine Color Urine Appearance (Clear) Urine pH (4.5-7.5) Ur Specific Monroe (1.000-1.030) Urine Protein (Negative) Urine Glucose (UA) (Negative) Urine Ketones (Negative) Urine Blood (Negative) Urine Nitrite (Negative) Urine Bilirubin (Negative) Urine Urobilinogen (Negative) Ur Leukocyte Esterase (Negative) Urine WBC (Auto) (0-5) /hpf Urine RBC (Auto) (0-4) /hpf U Hyaline Cast (Auto) (0-5) /lpf U Epithel Cells (Auto) (0-5) /lpf Urine Bacteria (Auto) (Negative) Fluid Comment CSF Appearance CSF Color Xanthrochromic CSF WBC (0-5) /uL CSF RBC (0-) /uL CSF Cell Count Tube # CSF Chemistry Tube # CSF Glucose (40-70) mg/dl CSF LDH CSF Lactate (0.6-2.2) mmol/L CSF Total Protein (15-45) mg/dl CSF C.neoform/gat PCR (NotDetected) CSF CMV DNA (PCR) (NotDetected) CSF Enterovirus (PCR) (NotDetected) CSF E. coli K1 (PCR) (NotDetected) CSF H. influenzae (PCR) (NotDetected) CSF HSV I (PCR) (NotDetected) CSF HSV II (PCR) (NotDetected) CSF HHV 6 (PCR) (NotDetected) CSF L.monocytogenes PCR (NotDetected) CSF N. meningitidis PCR (NotDetected) CSF Parechovirus (PCR) (NotDetected) CSF S. agalactiae (PCR) (NotDetected) CSF S. pneumoniae (PCR) (NotDetected) CSF VZV DNA (PCR) (NotDetected) Nasal Screen MRSA (PCR) (Negative) Salicylates < 3.0 L (3.0-30) mg/dl Urine Opiates Screen (Neg) Ur Methadone, Qual (Neg) Acetaminophen < 3 L (10-30) ug/ml Urine Barbiturates (Neg) Levetiracetam Ur Phencyclidine (PCP) (Neg) U Amphetamin/Meth Scrn (Neg) MDMA (Ecstasy) Screen (Neg) U Benzodiazepines Scrn (Neg) Ur Cocaine Metabolite (Neg) U Marijuana (THC) Screen (Neg) Ethyl Alcohol mg/dL (<10.0) mg/dl Adenovirus (PCR) (NotDetected) B. pertussis DNA (PCR) (NotDetected) B.parapertussis DNA PCR (NotDetected) Lyme Disease IgG Ab (Negative) Lyme Disease IgM Ab (Negative) C. pneumoniae DNA (PCR) (NotDetected) Coronavirus OC43 (PCR) (NotDetected) Coronavirus HKU1 (PCR) (NotDetected) Coronavirus 229E (PCR) (NotDetected) SARS-CoV-2 (PCR) (NotDetected) Coronavirus NL63 (PCR) (NotDetected) Cryptococcus Source Cryptococcal Ag (Latex) Human Metapneumovir PCR (NotDetected) Influenza Type A (PCR) (NotDetected) Influenza Type B (PCR) (NotDetected) M. pneumoniae (PCR) (NotDetected) Parainfluenza 1 (PCR) (NotDetected) Parainfluenza 2 (PCR) (NotDetected) Parainfluenza 3 (PCR) (NotDetected) Parainfluenza 4 (PCR) (NotDetected) RSV (PCR) (NotDetected) Entero/Rhino (PCR) (NotDetected) SARS-CoV-2, RNA, NAAT NEGATIVE (NEGATIVE) 02/20/22 02/20/22 Range/Units 12:30 12:30 WBC (4.8-10.8) K/uL RBC (4.2-5.4) M/uL Hgb (12.0-16.0) g/dL POC Hgb (12.0-16.0) g/dl Hct (37-47) % POC Hct (37-47) % MCV (80-100) fL MCH (25-34) pg MCHC (32-36) g/dL RDW Std Deviation (36.4-46.3) fL RDW Coeff of Ana (11.5-14.5) % Plt Count (130-400) K/uL MPV (7.4-10.4) fL Immature Gran % (Auto) % Neut % (Auto) % Lymph % (Auto) % Perry % (Auto) % Eos % (Auto) % Baso % (Auto) % Neut # (Auto) (1.4-6.5) K/uL Lymph # (Auto) (1.2-3.4) K/uL Perry # (Auto) (0.11-0.59) K/uL Eos # (Auto) (0-0.5) K/uL Baso # (Auto) (0-0.2) K/uL Immature Gran # (Auto) (0.00-0.02) K/uL PT 9.8 (9.0-12.0) Seconds INR 0.9 (0.9-1.1) APTT < 20.0 L (21.0-31.0) Seconds PTT Ratio 0.7 Sample Site POC pH (7.35-7.45) POC pCO2 (35-46) mmHg POC pO2 (80-95) mmHg POC HCO3 (19-24) rosalind/L POC Base Excess (-9-1.8) rosalind/L ABG pH (Temp Correct) (7.35-7.45) ABG pCO2 (Temp Corrct (35-46) mmHg POC ABG pO2 at Pt Temp POC ABG O2 Sat (90-95) % Berto Test VBG pH (7.36-7.41) VBG pCO2 (38-50) mmHg VBG pO2 mmHg VBG HCO3 mmol/L VBG O2 Saturation % VBG Base Excess mEq/L Barometric Pressure mm/Hg O2 Delivery Device POC O2 Rate POC FiO2 % Tidal Volume PEEP POC Sodium (135-144) mmol/L Sodium 140 (136-145) mmol/L POC Potassium (3.3-5.0) mmol/L Potassium 5.8 H (3.5-5.1) mmol/L POC Chloride (101-112) mmol/L Chloride 96 L (98-107) mmol/L Carbon Dioxide 32 (21-32) mmol/L POC Total CO2 (24-31) mmol/L Anion Gap 12 H (3-11) POC Anion Gap (16-25) mmol/L POC BUN (7-18) mg/dl BUN 30 H (6-23) mg/dl Creatinine 1.38 H (0.6-1.2) mg/dl POC Creatinine (0.6-1.3) mg/dl Est Cr Clr Drug Dosing Not Reportable Est GFR ( Amer) 45.7 ml/min Est GFR (Non-Af Amer) 39.5 ml/min BUN/Creatinine Ratio 21.7 H (10-20) Glucose 156 H (70-99(Fasting)) mg/dl POC Glucose (70-99) mg/dl POC Glucose (other) (70-99) mg/dl Estimat Average Glucose mg/dl Hemoglobin A1c (4.5-5.6) % Lactate (0.4-2.0) mmol/L Calcium 10.2 H (8.5-10.1) mg/dl POC Ioniz Calcium Steffany (1.12-1.32) mmol/l Phosphorus (2.5-4.9) mg/dl Magnesium 1.7 (1.7-2.4) mg/dl Total Bilirubin 0.3 (0.2-1.0) mg/dl Direct Bilirubin (0-0.2) mg/dl AST 19 (13-39) U/L ALT 13 (7-52) U/L Alkaline Phosphatase 69 (34-104) U/L Total Creatine Kinase 65 (26-192) U/L Troponin I High Sens 25.2 H (0-14) pg/ml Total Protein 7.2 (6.0-8.3) gm/dl Albumin 4.2 (3.4-5.0) gm/dl Globulin 3.0 (2.5-4.0) gm/dl Albumin/Globulin Ratio 1.4 (0.9-2) Lipase 37 (11-82) U/L Urine Color Urine Appearance (Clear) Urine pH (4.5-7.5) Ur Specific Monroe (1.000-1.030) Urine Protein (Negative) Urine Glucose (UA) (Negative) Urine Ketones (Negative) Urine Blood (Negative) Urine Nitrite (Negative) Urine Bilirubin (Negative) Urine Urobilinogen (Negative) Ur Leukocyte Esterase (Negative) Urine WBC (Auto) (0-5) /hpf Urine RBC (Auto) (0-4) /hpf U Hyaline Cast (Auto) (0-5) /lpf U Epithel Cells (Auto) (0-5) /lpf Urine Bacteria (Auto) (Negative) Fluid Comment CSF Appearance CSF Color Xanthrochromic CSF WBC (0-5) /uL CSF RBC (0-) /uL CSF Cell Count Tube # CSF Chemistry Tube # CSF Glucose (40-70) mg/dl CSF LDH CSF Lactate (0.6-2.2) mmol/L CSF Total Protein (15-45) mg/dl CSF C.neoform/gat PCR (NotDetected) CSF CMV DNA (PCR) (NotDetected) CSF Enterovirus (PCR) (NotDetected) CSF E. coli K1 (PCR) (NotDetected) CSF H. influenzae (PCR) (NotDetected) CSF HSV I (PCR) (NotDetected) CSF HSV II (PCR) (NotDetected) CSF HHV 6 (PCR) (NotDetected) CSF L.monocytogenes PCR (NotDetected) CSF N. meningitidis PCR (NotDetected) CSF Parechovirus (PCR) (NotDetected) CSF S. agalactiae (PCR) (NotDetected) CSF S. pneumoniae (PCR) (NotDetected) CSF VZV DNA (PCR) (NotDetected) Nasal Screen MRSA (PCR) (Negative) Salicylates (3.0-30) mg/dl Urine Opiates Screen (Neg) Ur Methadone, Qual (Neg) Acetaminophen (10-30) ug/ml Urine Barbiturates (Neg) Levetiracetam Ur Phencyclidine (PCP) (Neg) U Amphetamin/Meth Scrn (Neg) MDMA (Ecstasy) Screen (Neg) U Benzodiazepines Scrn (Neg) Ur Cocaine Metabolite (Neg) U Marijuana (THC) Screen (Neg) Ethyl Alcohol mg/dL (<10.0) mg/dl Adenovirus (PCR) (NotDetected) B. pertussis DNA (PCR) (NotDetected) B.parapertussis DNA PCR (NotDetected) Lyme Disease IgG Ab (Negative) Lyme Disease IgM Ab (Negative) C. pneumoniae DNA (PCR) (NotDetected) Coronavirus OC43 (PCR) (NotDetected) Coronavirus HKU1 (PCR) (NotDetected) Coronavirus 229E (PCR) (NotDetected) SARS-CoV-2 (PCR) (NotDetected) Coronavirus NL63 (PCR) (NotDetected) Cryptococcus Source Cryptococcal Ag (Latex) Human Metapneumovir PCR (NotDetected) Influenza Type A (PCR) (NotDetected) Influenza Type B (PCR) (NotDetected) M. pneumoniae (PCR) (NotDetected) Parainfluenza 1 (PCR) (NotDetected) Parainfluenza 2 (PCR) (NotDetected) Parainfluenza 3 (PCR) (NotDetected) Parainfluenza 4 (PCR) (NotDetected) RSV (PCR) (NotDetected) Entero/Rhino (PCR) (NotDetected) SARS-CoV-2, RNA, NAAT (NEGATIVE) Diagnostic Findings Xray image reviewed personally by me and agree with the following reports: Chest X-Ray 02/20/22 12:19 XR chest 1V portable CLINICAL HISTORY: sz. Evaluate cardiopulmonary status COMPARISON STUDY: 11/02/2021 TECHNIQUE: 1 view of the chest FINDINGS: Single frontal view of the chest demonstrates the cardiomediastinal silhouette to be within normal limits. The patient is rotated to the right. There is hyperinflation of the lungs with attenuation of the pulmonary vasculature peripherally characteristic of underlying chronic obstructive pulmonary disease. The lungs are clear of alveolar opacities. There is no evidence for pleural effusion. There is no evidence for vascular congestion. There is no acute osseous pathology. IMPRESSION: 1. No acute cardiopulmonary disease. 2. Underlying COPD. ACT 112: Negative or not required by law. Electronically signed by: Willy Valdes M.D. 02/20/2022 1:[address] 02/20/22 12:21 CT head/brain wo con CLINICAL HISTORY: sz COMPARISON STUDY: 10/21/2020 CT DOSE: 2710.81 mGy.cm TECHNIQUE: Standard CT of the Brain was performed without IV contrast. A dose lowering technique was utilized adhering to the principles of ALARA. FINDINGS: There is patient motion artifact present. Extraaxial space: There is no evidence for subdural hematoma. There are no extra-axial fluid collections. Ventricles and cisterns: The ventricles are normal in size and configuration. There is no evidence for midline shift or mass effect. Parenchyma: There is no subarachnoid or intraparenchymal hemorrhage. There is no evidence for an acute infarct or cerebral edema. There is homogeneous attenuation of the brain parenchyma. There are no gross mass lesions. Osseous structures: There is no evidence for an acute fracture. There is mucosal thickening in the right maxillary antrum. The remaining visualized paranasal sinuses are clear. There is diffuse mucosal thickening of the right mastoid air cells and compared to the left. Soft tissues: There is no evidence for focal soft tissue swelling. IMPRESSION: 1. No acute intracerebral pathology. 2. Right maxillary sinusitis. 3. Right mastoiditis ACT 112: Negative or not required by law. Electronically signed by: Willy Valdes M.D. 02/20/2022 1:38 PM Chest CTA 02/20/22 13:17 CT angio chest PE protocol CLINICAL HISTORY: Difficulty breathing COMPARISON STUDY: Portable chest from 02/18/2022 CT DOSE: 687.16 mGy.cm TECHNIQUE: CT Angio of the chest was performed.followed by image post processing with coronal, and sagittal MIP reformats. Contrast Volume: Optiray 320, 119 ml FINDINGS: Vasculature: There is homogeneous perfusion of the pulmonary vasculature bilaterally. No intraluminal filling defects or evidence for pulmonary embolus is seen. Airway: The airway is clear. No endobronchial lesion is identified. Lungs: There is mild to moderate centrilobular emphysematous changes present. There is a 1.2 cm subpleural nodular density seen involving the right lower lobe is noted on image 83. Branching parenchymal density seen within the right middle lobe characteristic of scarring. The lungs are otherwise clear of acute alveolar opacities, air bronchograms or additional pulmonary nodules. Pleura: There is no evidence for pleural effusion. There is no evidence for pneumothorax. Mediastinum: There is no evidence for pathologic adenopathy. There is a scoliotic curve with displacement of the heart to the left. The heart size is within normal limits. There is mild coronary artery calcification. The thoracic aorta is within normal limits. There is no evidence for pericardial effusion. Upper abdomen:The adrenal glands are normal bilaterally. Osseous structures: There is no acute osseous pathology. Impression: 1. No CTA evidence for pulmonary embolus. 2. No acute chest disease. 3. Mild to moderate centrilobular emphysematous changes with right lower lobe pulmonary nodule. Follow-up CT chest in 3-6 months recommended for further evaluation. ACT 112: Positive. There are findings on this exam that require communication between the performing entity and the patient following Patient Test Result Information Act ([place] Act 112) guidelines. Electronically signed by: Willy Valdes M.D. 02/20/2022 1:48 PM Chest X-Ray 02/20/22 15:18 XR chest 1V portable CLINICAL HISTORY: Status post intubation. COMPARISON STUDY: 02/20/2022 at 1252 hours TECHNIQUE: 1 view of the chest FINDINGS: Single frontal view of the chest demonstrates the cardiomediastinal silhouette to be within normal limits. Endotracheal tube has been place with its tip approximately 2.6 cm above the erik. NG tube extends below the edge of the film and into the stomach. The lungs are clear of alveolar opacities. There is no evidence for pleural effusion. There is no evidence for vascular congestion. There is no acute osseous pathology. IMPRESSION: 1. No acute cardiopulmonary disease. 2. Status post intubation and NG tube placement. ACT 112: Negative or not required by law. Electronically signed by: Willy Valdes M.D. 02/20/2022 3:32 PM Brain MRI 02/20/22 16:12 MR brain seizure wo/w con CLINICAL HISTORY: new onset seizure. COMPARISON STUDY: No previous studies for comparison. TECHNIQUE: Multiplanar multisequence images of the brain were performed before and after Gadavist, 8.5 mL of IV contrast. Diffusion weighted imaging and ADC mapping was also performed. FINDINGS: Extra-axial space: There is no evidence for a subdural hematoma, There are no extra-axial fluid collections. Ventricles and cisterns: The ventricles are normal in size and configuration. There is no evidence for midline shift or mass effect. Parenchyma: On noncontrast images, there is no evidence for an acute hemorrhage or infarct. No acute diffusion abnormalities are noted on diffusion weighted imaging or ADC mapping. There is normal collado-white differentiation. The sulci and gyri appear normal without effacement. There is evidence for an empty sella. The posterior fossa structures appear normal. On postcontrast images, there is no evidence for enhancing mass lesion. Osseous structures: The paranasal sinuses are well aerated. There is prominent mucosal thickening involving the mastoid air cells bilaterally, right greater than left. Soft tissues: There is evidence for soft tissue swelling along the roof of the mouth. Clinical correlation is recommended. IMPRESSION: 1. No acute intracranial abnormalities. 2. Bilateral mastoiditis, right greater than left. 3. Empty sella. 4. Evidence for soft tissue swelling along the roof of the mouth. Direct visualization is recommended. ACT 112: Negative or not required by law. Electronically signed by: Willy Valdes M.D. 02/21/2022 8:43 AM Chest X-Ray 02/21/22 06:00 XR chest 1V portable HISTORY: eval tube and line placement evaluate lungs COMPARISON: Chest 02/20/2022. FINDINGS: The endotracheal tube terminates 2.7 cm from the erik. Nasogastric tube terminates below the diaphragm with the tip located at the gastric fundus. Left subclavian central venous catheter terminates at the proximal SVC. No pneumothorax. No pleural effusions. The heart is normal in size. No new focal lung consolidations to suggest pneumonia. Emphysema. IMPRESSION: 1. Satisfactory support line placement. 2. No focal lung consolidations to suggest pneumonia. ACT 112: Negative or not required by law. Electronically signed by: Homar Scott M.D. 02/21/2022 7:56 AM PG Care Time/CCT Total # of Minutes Spent Total Time Spent with Patient: Total time spent is greater than 50% in coordination of care (as documented) at patient's floor/unit and/or counseling patient: Coding Level of Care Code 60826 Subseq Hosp Care Lvl 3 Diagnoses Acute encephalopathy G93.40 Seizure-like activity R56.9 Sepsis A41.9 Acute and chronic respiratory failure with hypoxia J96.21 Chronic kidney disease, stage 3a N18.31 Obesity E66.9 Hypertension I10 COPD (chronic obstructive pulmonary disease) J44.9 COPD type: unspecified COPD Elevated troponin R77.8 Acidosis E87.2 Sinusitis J32.9 Mastoiditis H70.90 Pulmonary nodules R91.8 (1) COPD (chronic obstructive pulmonary disease) COPD type: unspecified COPD Qualified Code(s): J44.9 - Chronic obstructive pulmonary disease, unspecified
[2022-02-21] MEDS: niCARdipine 25 MG in SODIUM CHLORIDE 0.9% 240 ML IV SCH ×4 (09:50→21:56)
--- NOTE | 2022-02-21 10:24 | Critical Care Progress Note ---
Date of Service February 21, 2022 Assessment & Plan (1) Acute encephalopathy: (2) Seizure-like activity: (3) Acute and chronic respiratory failure with hypoxia: (4) Complicated UTI (urinary tract infection): Plan: 66-year-old female with acute on chronic hypoxemic and hypercapnic respiratory failure who presented with seizure-like activity Neurologic: EEG with evidence of encephalopathy. Lumbar puncture unremarkable. MRI brain with no acute intracranial abnormalities. Continue to hold sedation. Continue empiric levetiracertam. Pending neurology consult. Pulmonary: Minimal vent settings at this time. Currently on dexamethasone for possible COPD exacerbation. ABG suggestive of acute hypercapnia. ABG this morning improved with CO2 of 53. Continue Pulmicort. Cardiovascular: Nicardipine infusion initiated to maintain systolics between 120 and 160 Gastrointestinal: Start tube feeds. Renal: Monitor urine output closely. No significant issues at present. Replace electrolytes per protocol. Infectious disease: LP negative for infectious etiology thus far. Patient empirically on cefepime and doxycycline. MRSA negative. Will check procal. Sputum culture pending. Blood cultures pending. Urine cultures pending. Urinalysis with 1+ bacteria an d 1+ leukoesterase. Hematologic: Mild chronic anemia Endocrine: TSH ordered. Monitor for hypoglycemia. VTE prophylaxis: Heparin 5000 units 3 times daily CODE STATUS: Full Family at bedside: Not available bedside Disposition: ICU I have personally spent 42 minutes of critical care time in the direct management of this patient. This is a life/limb threatening event. This includes time spent evaluating patient, direct bedside care, chart review, placing orders, interpretation of diagnostic studies, discussion with consultants, patient, and family members, as well as other required patient management activities. This time is exclusive of all separately billable procedures, and teaching time and separate from and in addition to any other critical care service time. Thank you for allowing us to participate in the care of this patient. Admission and Anticipated Discharge Date Admission Date: February 20, 2022 Subjective Patient seen and examined. Off of all sedation at this present time, but minimally responsive to commands. No significant events overnight. Review of Systems Review of Systems: All systems reviewed & are unremarkable except as noted in HPI & below Physical Exam Constitutional: Intubated and sedated. No significant distress. Eyes: PERRL, conjunctivae normal, anicteric sclerae ENMT: Intubated Neck: trachea midline, no thyromegaly Respiratory: Diminished lung sounds bilaterally. No wheeze. Cardiovascular: RRR, no murmur, no edema Gastrointestinal (Abdomen): normal bowel sounds, soft, nontender, no hepatosplenomegaly Musculoskeletal: no cyanosis or clubbing, extremities motor strength 5/5 Neurologic: PERRL, EOMI, accommodation nl, no face palsy, no dysarthria Psychiatric: A+Ox3, euthymic affect Results & Data Results & Data ([facility]) Vital Signs (Past 12 Hours) Vital Signs Temp Pulse Resp BP Pulse Ox 02/21/22 07:34 98 H 23 98 02/21/22 06:30 36.4 C L 83 22 113/76 95 02/21/22 06:15 36.4 C L 86 22 113/60 94 02/21/22 06:00 36.4 C L 88 22 112/68 95 02/21/22 05:45 36.4 C L 85 22 111/71 100 02/21/22 05:30 36.3 C L 84 22 107/78 99 02/21/22 05:20 36.3 C L 103 H 23 62/49 L 88 L 02/21/22 05:15 36.3 C L 106 H 23 100/64 93 02/21/22 05:02 36.4 C L 101 H 25 H 127/76 99 02/21/22 05:00 36.4 C L 96 H 23 100 02/21/22 04:30 36.5 C 87 22 116/58 L 91 02/21/22 04:15 36.5 C 82 22 149/71 H 99 02/21/22 04:10 83 23 99 02/21/22 04:00 36.6 C 77 22 97 02/21/22 03:45 36.6 C 76 22 87/53 L 97 02/21/22 03:30 36.6 C 72 22 105/57 L 97 02/21/22 03:15 36.5 C 75 22 98/57 L 98 02/21/22 03:01 36.5 C 62 22 167/77 H 97 02/21/22 03:00 36.5 C 62 22 97 02/21/22 02:30 36.6 C 77 22 95/55 L 98 02/21/22 02:15 36.6 C 75 22 95/56 L 98 02/21/22 02:00 36.6 C 77 22 94/56 L 99 02/21/22 01:45 36.6 C 74 22 102/53 L 98 02/21/22 01:30 36.6 C 75 22 114/61 99 02/21/22 01:15 36.8 C 79 22 101/63 98 02/21/22 01:00 36.8 C 79 22 93/55 L 97 02/21/22 00:45 36.8 C 81 22 101/58 L 97 02/21/22 00:30 36.8 C 79 22 87/56 L 97 02/21/22 00:15 36.9 C 79 22 105/61 97 02/21/22 00:00 36.8 C 82 22 109/69 95 02/20/22 23:45 36.9 C 79 22 96/58 L 97 02/20/22 23:30 36.9 C 80 22 102/67 97 02/20/22 23:15 36.9 C 79 22 98/58 L 95 02/20/22 23:00 36.8 C 77 22 132/74 100 02/20/22 22:56 83 23 99 02/20/22 22:45 36.9 C 83 22 99/56 L 100 02/20/22 22:30 36.9 C 84 22 108/57 L 100 02/20/22 22:15 36.9 C 85 22 109/56 L 100 Coding Level of Care Code Critical Care 1st 30-74 mins Diagnoses Acute encephalopathy G93.40 Seizure-like activity R56.9 Acute and chronic respiratory failure with hypoxia J96.21 Complicated UTI (urinary tract infection) N39.0 Time Spent (min) 42
--- NOTE | 2022-02-21 11:04 | Neurology Consultation ---
Date of Consultation February 21, 2022 Assessment & Plan (1) Seizure: (2) Acute encephalopathy: (3) Acute and chronic respiratory failure with hypoxia: patient had two generalized seizures witnessed on February 20. The patient has a significant encephalopathy which is likely multifactorial. I suspect a post ictal state (which can last 2-3 days following seizures) in addition to generalized hypoxia due to her pulmonary condition. Although the patient had elevated white count on admission no source of infection has been identified. She has no focal findings on exam and lumbar puncture showed no evidence of meningoencephalitis. MRI of the brain showed no evidence of stroke or encephalitis either. EEG was slow in general with no focal findings or potentially epileptogenic activity. The origin of the seizures not readily apparent, but hypoxia could trigger a seizure as could any toxic, metabolic, or infectious etiology. Recommendations: 1. discontinue levetiracetam. This could create some irritability and other mental status changes. 2. Initiate Depakote 250 milligrams Q 6 hours IV and check a trough Depakote level each morning. 3. I will follow. Overall, I spent a total of 60 minutes with this case including review of records, direct evaluation the patient at bedside, and discussion of the case with the RN at bedside and Dr. Avalos including differential diagnosis and treatment options. History of Present Illness Reason for Consultation: patient is a 66 year, who I was asked to see at the request of Dr. Avalos, for neurologic evaluation regarding seizure and unresponsive state Requesting Physician: Dr. Avalos Attending Physician: Nan Blackman MD History of Present Illness this patient has a longstanding history of COPD and chronic respiratory failure, requiring 6-8 liters/min oxygen, depending on her activity. She was a heavy cigarette smoker for many years in the past, and has had episodes of including this year. She has hypertension, dyslipidemia, and type 2 diabetes as well as obstructive sleep apnea on CPAP and lymphedema from venous insufficiency. On February 20 patient was doing well in the morning but was found late morning on the couch having a generalized seizure. When it was over she was quite confused and EMS noted a 2nd seizure. When she arrived to the emergency room she was repeating phrases and stating that she "could not breathe".Vital signs in the emergency room revealed temperature of 38 rectally, pulse 151, respiratory rate 13, blood pressure 192/156, and O2 saturation 74 percent. Her exam was nonfocal but she was confused. BUN and creatinine were elevated white count was 11.5 with increased neutrophils. She was intubated and given levetiracetam. She was put on multiple antibiotics I have 1st. CT scan of the head was unremarkable. Lumbar puncture revealed 0 white cells, 10 red cells, total protein of 59. Biofire screening was negative and there was no sign of Lyme or other infectious process. Blood urine and respiratory cultures have been unremarkable so far. MRI of the brain showed no acute changes although that was soft tissue swelling along the roof of the mouth and some mastoiditis right greater than left side. EEG showed moderate to significant generalized slowing but no focal findings or potentially epileptogenic discharges. Nursing reports no further seizure activity since admission. Allergies Allergy/AdvReac Type Severity Reaction Status Date / Time codeine AdvReac Mild SHAKING Verified 01/07/22 13:18 oxycodone AdvReac Unknown rash/shakes Verified 01/07/22 13:18 Home Medications Medication Instructions Recorded Confirmed Type carvedilol 6.25 mg tablet 6.25 mg PO BID #30 tab 11/06/20 01/07/22 Rx folic acid 400 mcg tablet 400 mcg PO QAM #30 tab 11/06/20 01/07/22 Rx aspirin 81 mg tablet,delayed 81 mg PO DAILY 12/01/20 01/07/22 History release metformin 1,000 mg tablet 1,000 mg PO BID #180 tab 09/27/21 01/07/22 Rx pravastatin 80 mg tablet 80 mg PO DAILY #90 tab 09/30/21 01/07/22 Rx docusate sodium 100 mg capsule 100 mg PO BID #180 cap 10/05/21 01/07/22 Rx miconazole nitrate 2 % topical 1 spray TOPICAL BID PRN 10/27/21 01/07/22 History spray powder polyethylene glycol 3350 17 17 g PO DAILY PRN 10/27/21 01/07/22 History gram/dose oral powder (Miralax) sennosides 8.6 mg tablet 8.6 - 17.2 mg PO HS 10/27/21 01/07/22 History simethicone 80 mg chewable tablet 80 mg PO DIRECTED PRN 10/27/21 01/07/22 History fluticasone propionate 50 2 spray INTRANASAL DAILY PRN #15.8 11/08/21 01/07/22 Rx mcg/actuation nasal ml spray,suspension (Flonase Allergy Relief) ipratropium bromide 0.02 % 2.5 ml INHALATION QID #187.5 ml 11/18/21 01/07/22 Rx solution for inhalation albuterol sulfate 2.5 mg INHALATION Q4H PRN #300 ml 12/03/21 01/07/22 Rx budesonide 0.5 mg/2 mL suspension 0.5 mg INHALATION BID #120 ml 12/03/21 01/07/22 Rx for nebulization pantoprazole 40 mg tablet,delayed 40 mg PO DAILY #90 tab 12/03/21 01/07/22 Rx release glycopyrrolate 9 mcg-formoterol 2 puff INHALATION BID #10.7 g 12/06/21 01/07/22 Rx 4.8 mcg HFA aerosol inhaler (Bevespi Aerosphere) loratadine 10 mg tablet (Claritin) 10 mg PO DAILY #30 tab 12/29/21 01/07/22 Rx tramadol 50 mg tablet 50 mg PO TID PRN #90 tab 01/17/22 Rx albuterol sulfate 90 mcg/actuation 2 inh INH QID PRN #8.5 g 01/26/22 Rx aerosol inhaler (Ventolin HFA) baclofen 10 mg tablet 10 mg PO TID PRN #90 tab 02/09/22 Rx Patient History Medical History Acute and chronic respiratory failure with hypoxia (10/2021) Anemia Chronic back pain Chronic respiratory failure Chronic venous insufficiency Colonic dysmotility Complicated UTI (urinary tract infection) COVID-19 Hypercapnic respiratory failure Hypertension Ileus Lymphedema Osteoporosis Pulmonary nodules Vitamin D deficiency Surgical History History of cholecystectomy Hx of umbilical hernia repair Family History Sister Colorectal cancer Breast cancer Denies family history of Ovarian cancer Prostate cancer Myocardial infarction Social History Smoking Status: Current every day smoker Tobacco Type: Cigarettes Age Started Using Tobacco: 17; Age Quit Using Tobacco: 49; packs per day: 2; Cigarettes Per Day: 2 ppd quit 15 yrs ago; Second Hand Exposure: No; Hx Alcohol Use: No Hx Substance Use: No Preferred Language: Hungarian Visual Impairment: Limited Hearing Ability: Normal [employer] Delivery Required: No Beliefs That Will Affect Care: None marital status: Current Living Situation: Family Current Living Situation Comment: Lives with son current occupational status: retired Feels Safe at Home: Yes Childhood Exposure to Second-Hand Smoke: No caffeine: Yes (coffee x 1 per day Iced tea x 1 glass per day.) during the past year weight has: remained stable Dental Care, Regularly: No Physical Activity Frequency: Does not Exercise Seatbelt Use: never Sunscreen Use: No Assistive Devices: Oxygen - Continuous and Walker Review of Systems Review of Systems: Unobtainable due to reduced consciousness Exam (Neuro) Physical Exam: Patient was evaluated 2 hours after propofol and fentanyl were stopped. Patient was lying with her eyes closed and little to no spontaneous movement (occasional flicker of the hand or foot). She was totally breathing on the ventilator. The event was lowered to 10 for about a minute the patient did not start making respiratory efforts over the ventilator. Blood pressure was 150-160 systolic. She was afebrile and O2 saturation was 93 percent. Pulse was in the 90s. With clapping, she did not arouse. With loud voice and gentle sternal rub patient opened her eyes and would briefly fix her eyes on me for a 2nd and then close her eyes when unstimulated. With effort, we could get her to keep her eyes open for a few seconds and perhaps she wiggled her fingers /toes to commands at times. Pupils were 2 millimeters bilaterally and reactive to light. The right eye was skewed a little lower than the left when eyes were passively opened but she did move both eyes to the right and left at times and seemed to have normal oculocephalics horizontally. She had positive corneal response bilaterally. She had positive gag bilaterally and a positive cough to suctioning. Neck was supple. Tone was normal in the legs and normal to slightly increased in the arms although when I tried to manipulate the arms she resisted in any direction. Reflexes were absent in all 4 limbs. Toes were upgoing to plantar stimulation on the right, and equivocal to upgoing on the left. She withdrew to [id number] pain in each limb. Results & Data ([facility]) Vital Signs (Past 12 Hours) Vital Signs Temp Pulse Pulse Resp BP BP Pulse Ox 02/21/22 06:30 36.4 C L 83 22 113/76 95 02/21/22 06:15 36.4 C L 86 22 113/60 94 02/21/22 06:00 36.4 C L 88 22 112/68 95 02/21/22 05:45 36.4 C L 85 22 111/71 100 02/21/22 05:30 36.3 C L 84 22 107/78 99 02/21/22 05:20 36.3 C L 103 H 23 62/49 L 88 L 02/21/22 05:15 36.3 C L 106 H 23 100/64 93 02/21/22 05:02 36.4 C L 101 H 25 H 127/76 99 02/21/22 05:00 36.4 C L 96 H 23 100 02/21/22 04:30 36.5 C 87 22 116/58 L 91 02/21/22 04:15 36.5 C 82 22 149/71 H 99 02/21/22 04:10 83 23 99 02/21/22 04:00 36.6 C 77 22 97 02/21/22 03:45 36.6 C 76 22 87/53 L 97 02/21/22 03:30 36.6 C 72 22 105/57 L 97 02/21/22 03:15 36.5 C 75 22 98/57 L 98 02/21/22 03:01 36.5 C 62 22 167/77 H 97 02/21/22 03:00 36.5 C 62 22 97 02/21/22 02:30 36.6 C 77 22 95/55 L 98 02/21/22 02:15 36.6 C 75 22 95/56 L 98 02/21/22 02:00 36.6 C 77 22 94/56 L 99 02/21/22 01:45 36.6 C 74 22 102/53 L 98 02/21/22 01:30 36.6 C 75 22 114/61 99 02/21/22 01:15 36.8 C 79 22 101/63 98 02/21/22 01:00 36.8 C 79 22 93/55 L 97 02/21/22 00:45 36.8 C 81 22 101/58 L 97 02/21/22 00:30 36.8 C 79 22 87/56 L 97 02/21/22 00:15 36.9 C 79 22 105/61 97 02/21/22 00:00 36.8 C 82 22 109/69 95 02/20/22 23:45 36.9 C 79 22 96/58 L 97 02/20/22 23:30 36.9 C 80 22 102/67 97 02/20/22 23:15 36.9 C 79 22 98/58 L 95 02/20/22 23:00 36.8 C 77 22 132/74 100 02/20/22 22:56 83 23 99 02/20/22 22:45 36.9 C 83 22 99/56 L 100 02/20/22 22:30 36.9 C 84 22 108/57 L 100 02/20/22 22:15 36.9 C 85 22 109/56 L 100 02/20/22 22:00 37.0 C 87 22 109/59 L 99 02/20/22 21:45 37.0 C 85 22 115/57 L 99 02/20/22 21:30 37.1 C 87 22 110/64 99 02/20/22 21:15 37.1 C 88 22 128/80 100 02/20/22 21:00 37.1 C 88 22 123/67 97 02/20/22 20:45 37.1 C 92 H 22 131/74 99 02/20/22 20:30 37.1 C 91 H 22 117/72 96 02/20/22 20:15 37.1 C 92 H 22 91/71 L 97 02/20/22 20:00 37.1 C 96 H 90 22 138/86 97/61 L 97 02/20/22 19:55 98 H 22 90 02/20/22 19:45 37.1 C 89 18 121/75 92 02/20/22 19:30 37.2 C 90 21 149/77 H 95 PG Care Time/CCT Total # of Minutes Spent Total Time Spent with Patient: Total time spent is greater than 50% in coordination of care (as documented) at patient's floor/unit and/or counseling patient Coding Level of Care Code 37799 Initial Inpt Care Lvl 3 Diagnoses Seizure R56.9 Acute encephalopathy G93.40 Acute and chronic respiratory failure with hypoxia J96.21
--- NOTE | 2022-02-21 12:25 | Pharmacy Report ---
Pharmacy Glycemic Short Note 2 - Date of Service February 21, 2022 - Glycemic Short BSG Results (Last 24 hours): 02/20/22 02/20/22 02/20/22 12:30 12:35 18:43 Glucose 156 H 101 H POC Glucose POC Glucose (other) 168 H 02/20/22 02/21/22 02/21/22 20:04 00:21 03:00 Glucose 84 POC Glucose 107 H 93 POC Glucose (other) 02/21/22 02/21/22 04:01 08:57 Glucose POC Glucose 74 123 H POC Glucose (other) OUTPATIENT ANTIDIABETIC REGIMEN: * Metformin 1000 mg PO BIDM * HbA1c 4.5% ASSESSMENT: 02/21 * Patient has not required any insulin overnight/this morning. A1c of 4.5%. * Slightly loosened correction factor/carb ratio since A1c low normal on metformin. Patient is continuing on dexamethsone- may need to tighten if BSGs start to trend up/tube feeds started. 02/20 * 66 yo F found unresponsive today and intubated in the ED. Pharmacy has been consulted to assist with inpatient glycemic management. * Stressors include Dexamethasone 6 mg IV daily, possible infection on Cefepime + Doxycycline + Acyclovir, requiring pressors (norepi). Remains on propofol and fentanyl. * BSGs have been well controlled since admission: 168-107 mg/dL. Has not required any insulin. * Started Novolog q4h for now. May be necessary to add NPH if steroid-induced hyperglycemia occurs. PLAN FOR INPATIENT GLYCEMIC CONTROL: * Hold outpatient oral diabetes medications * Basal insulin * None * Bolus insulin * NovoLog per scale ACHS or Q6hrs while NPO * Goal Range: Low 110 mg/dL - High 140 mg/dL * Correction Factor: 30 mg/dL/unit * Nutritional / Prandial insulin per carb ratio of 1 unit per 9 grams CHO consumed
--- NOTE | 2022-02-21 14:07 | Electrocardiogram Report ---
Test Reason : Blood Pressure : / mmHG Vent. Rate : 097 BPM Atrial Rate : 097 BPM P-R Int : 150 ms QRS Dur : 090 ms QT Int : 342 ms P-R-T Axes : 054 034 065 degrees QTc Int : 434 ms Poor data quality, interpretation may be adversely affected Normal sinus rhythm Septal infarct , age undetermined Abnormal ECG When compared with ECG of 20-FEB-2022 12:56, No significant change was found Confirmed by Elías Keenan ([id number]) on 02/21/2022 2:06:30 PM Referred By: REFERRED SELF Confirmed By:Elías Keenan
--- NOTE | 2022-02-21 15:17 | Electrocardiogram Report ---
Test Reason : Blood Pressure : / mmHG Vent. Rate : 084 BPM Atrial Rate : 084 BPM P-R Int : 142 ms QRS Dur : 084 ms QT Int : 386 ms P-R-T Axes : 072 034 055 degrees QTc Int : 456 ms Normal sinus rhythm Septal infarct (cited on or before 20-FEB-2022) Abnormal ECG When compared with ECG of 20-FEB-2022 18:13, (unconfirmed) No significant change was found Confirmed by Elías Keenan ([id number]) on 02/21/2022 3:16:56 PM Referred By: REFERRED SELF Confirmed By:Elías Keenan
[2022-02-21] MEDS ORDERED: METOPROLOL TARTRATE 1 MG/ML VIAL IV STA (16:44)
[2022-02-21] MEDS: VALPROATE SOD 250 MG in DEXTROSE 5% 50 ML IV SCH ×2 (17:19→21:57)
[2022-02-21] MEDS: SENNOSIDES 8.8 MG/5 ML UDC PO SCH (20:05)
[2022-02-22] MEDS: niCARdipine 25 MG in SODIUM CHLORIDE 0.9% 240 ML IV SCH ×11 (00:18→14:46)
[2022-02-22] MEDS: INSULIN ASPART PER UNIT SC SCH ×6 (00:19→21:07)
[2022-02-22] MEDS: VALPROATE SOD 250 MG in DEXTROSE 5% 50 ML IV SCH ×4 (03:50→21:53)
[2022-02-22 05:05] LABS: Basophils # (auto) 0.01 K/uL (0-0.2); Basophils % (auto) 0.1 %; Eosinophils # (auto) 0.01 K/uL (0-0.5); Eosinophils % (auto) 0.1 %; Hemoglobin 10.6 g/dL (12.0-16.0); Immature Granulocytes # (auto) 0.01 K/uL (0.00-0.02); Immature Granulocytes % (auto) 0.1 %; Lymphocytes # (auto) 1.34 K/uL (1.2-3.4); Lymphocytes % (auto) 18.3 %; Mean Corpuscular Hemoglobin 27.9 pg (25-34); Mean Corpuscular Hgb Conc 33.1 g/dL (32-36); Mean Corpuscular Volume 84.2 fL (80-100); Mean Platelet Volume 10.1 fL (7.4-10.4); Monocytes # (auto) 0.65 K/uL (0.11-0.59); Monocytes % (auto) 8.9 %; Neutrophils # (auto) 5.31 K/uL (1.4-6.5); Neutrophils % (auto) 72.5 %; Platelet Count 132 K/uL (130-400); RDW Coefficient of Variation 13.4 % (11.5-14.5); RDW Standard Deviation 40.7 fL (36.4-46.3); White Blood Count 7.33 K/uL (4.8-10.8)
[2022-02-22 05:10] LABS: INR 0.9 (0.9-1.1); Prothrombin Time 9.9 Seconds (9.0-12.0)
[2022-02-22] MEDS: HEPARIN SOD 5,000 UNIT/0.5 ML VIAL SQ SCH ×3 (05:13→21:09)
[2022-02-22 05:25] LABS: Albumin Level 3.5 gm/dl (3.4-5.0); BUN Creatinine Ratio 22.1 (10-20); Bilirubin,Total 0.3 mg/dl (0.2-1.0); Creatinine Clr Calc Pharmacy 58.9 ml/min; Est GFR (African American) 71.8 ml/min; Phosphorus 2.7 mg/dl (2.5-4.9); Potassium 3.9 mmol/L (3.5-5.1); Total Protein 6.1 gm/dl (6.0-8.3)
[2022-02-22] MEDS: CEFEPIME 2,000 MG in SYRINGE 0 ML IV SCH ×2 (06:00→18:35)
[2022-02-22] MEDS ORDERED: METOPROLOL TARTRATE 1 MG/ML VIAL IV SCH (06:00)
[2022-02-22] MEDS: DOXYCYCLINE HYCLATE 100 MG in DEXTROSE 5% 100 ML IV SCH ×2 (06:00→18:35)
[2022-02-22] MEDS: NORMOSOL-R 1,000 ML IV SCH (07:11)
[2022-02-22] MEDS: BUDESONIDE 0.5 MG/2 ML VIAL (PULMICORT) INH SCH ×2 (07:25→20:00)
[2022-02-22] MEDS: ALBUTEROL 0.083% NEBU SOLN 3 ML VIAL INH PRN (07:25)
[2022-02-22] MEDS: propofoL 1,000 MG/100 ML VIAL IV SCH (07:40)
[2022-02-22] MEDS: PRAVASTATIN SOD 40 MG TAB PO SCH (07:41)
[2022-02-22] MEDS: PANTOprazole 40 MG in SYRINGE 0 ML IV SCH (08:12)
[2022-02-22] MEDS: LABETALOL HCL IV 5 MG/ML 20ML IV PRN ×2 (08:29→12:32)
--- NOTE | 2022-02-22 08:31 | XRay Report ---
XR chest 1V portable CLINICAL HISTORY: eval tube and line placement evaluate lungs TECHNIQUE: Single frontal radiograph of the chest was obtained. Comparison: Comparison is made to chest radiograph 02/21/2022 FINDINGS: Interval removal of endotracheal and enteric tubes. A left venous catheter tip terminates at the uppe r SVC. The cardiomediastinal silhouette is normal. The lungs are clear. No evidence of pleural effusi on or pneumothorax. IMPRESSION: No acute chest disease. ACT 112: Negative or not required by law. Electronically signed by: Jean-Pierre Milian M.D. 02/22/2022 8:29 AM
[2022-02-22] MEDS ORDERED: cloNIDine HCL 0.1 MG/24 HR TRANSDERM SYS TD SCH (09:00)
--- NOTE | 2022-02-22 09:15 | Critical Care Progress Note ---
Date of Service February 22, 2022 Assessment & Plan (1) Acute encephalopathy: (2) Seizure-like activity: (3) Acute and chronic respiratory failure with hypoxia: (4) Complicated UTI (urinary tract infection): (5) Hypertensive urgency: (6) Acute respiratory failure with hypercapnia: Plan: 66-year-old female with acute on chronic hypoxemic and hypercapnic respiratory failure who presented with seizure-like activity Neurologic: EEG with evidence of encephalopathy. Lumbar puncture unremarkable. MRI brain with no acute intracranial abnormalities. Continue to hold sedation. Continue Depakote per neurology recommendations. PT and OT consults ordered. Pulmonary: Extubated 02/22. She did present with acute hypercapnic respiratory failure. Given her lethargy today, will obtain an ABG. Continue as needed BiPAP. Cardiovascular: Nicardipine infusion initiated to maintain systolics between 120 and 160. We will use clonidine patch and as needed labetalol to maintain systolic blood pressures under 160. Gastrointestinal: N.p.o. until evaluated by speech. Renal: Monitor urine output closely. No significant issues at present. Replace electrolytes per protocol. Infectious disease: LP negative for infectious etiology thus far. Patient empirically on cefepime and doxycycline. MRSA negative. Pro-[place] negative. S sputum and blood culture negative. Urine cultures growing pinpoint growth. Urinalysis with 1+ bacteria and 1+ leukoesterase. Continue doxycycline and cefepime. Hematologic: Mild chronic anemia Endocrine: TSH within normal limits. Monitor for hypoglycemia. VTE prophylaxis: Heparin 5000 units 3 times daily CODE STATUS: Full Family at bedside: Not available bedside Disposition: ICU while the patient remains on a nicardipine I have personally spent 38 minutes of critical care time in the direct management of this patient. This is a life/limb threatening event. This includes time spent evaluating patient, direct bedside care, chart review, placing orders, interpretation of diagnostic studies, discussion with consultants, pat ient, and family members, as well as other required patient management activities. This time is exclusive of all separately billable procedures, and teaching time and separate from and in addition to any other critical care service time. Thank you for allowing us to participate in the care of this patient. Admission and Anticipated Discharge Date Admission Date: February 20, 2022 Subjective Patient seen and examined. She is extubated. Follows commands intermittently. Still slow to respond. Requiring 10 L of oxygen via oxygen mask. Review of Systems Review of Systems: Limited due to altered mental status Physical Exam Constitutional: Elderly female appears to be in mild distress. Eyes: PERRL, conjunctivae normal, anicteric sclerae ENMT: Intubated Neck: trachea midline, no thyromegaly Respiratory: Diminished lung sounds bilaterally. No wheeze. Cardiovascular: RRR, no murmur, no edema Gastrointestinal (Abdomen): normal bowel sounds, soft, nontender, no hepatosplenomegaly Musculoskeletal: no cyanosis or clubbing, extremities motor strength 5/5 Neurologic: No focal signs, but lethargic and felt slow to respond to commands Psychiatric: Lethargic Results & Data Results & Data ([facility]) Vital Signs (Past 12 Hours) Vital Signs Temp Pulse Pulse Resp BP Pulse Ox 02/22/22 07:38 114 H 17 96 02/22/22 06:00 37.0 C 100 H 16 162/81 H 92 02/22/22 05:14 113 H 143/75 H 02/22/22 05:00 37.0 C 120 H 18 143/75 H 94 02/22/22 04:00 37.1 C 115 H 24 161/79 H 94 02/22/22 03:00 37.0 C 120 H 21 157/71 H 95 02/22/22 02:00 36.9 C 119 H 19 162/74 H 93 02/22/22 01:00 36.8 C 115 H 19 143/78 H 93 02/22/22 00:00 36.9 C 123 H 21 172/98 H 94 02/21/22 23:00 36.8 C 113 H 18 169/81 H 96 02/21/22 22:00 36.8 C 110 H 16 176/74 H 95 Coding Level of Care Code Critical Care 1st 30-74 mins Diagnoses Acute encephalopathy G93.40 Seizure-like activity R56.9 Acute and chronic respiratory failure with hypoxia J96.21 Complicated UTI (urinary tract infection) N39.0 Hypertensive urgency I16.0 Acute respiratory failure with hypercapnia J96.02 Time Spent (min) 38
[2022-02-22 09:48] LABS: iSTAT Art Bld Gas pCO2 Correct 58 mmHg (35-46); iSTAT Arterial Blood Gas HCO3 32 meg/L (19-24); iSTAT Arterial Blood Gas pCO2 59 mmHg (35-46); iSTAT Arterial Blood Gas pH 7.35 (7.35-7.45); iSTAT Arterial Blood Gas pO2 101 mmHg (80-95); iSTAT Arterial Blood Gas pO2 C 100; iSTAT Carbon Dioxide 34 mmol/L (24-31); iSTAT Hematocrit 29 % (37-47); iSTAT Hemoglobin 9.9 g/dl (12.0-16.0); iSTAT Potassium 3.7 mmol/L (3.3-5.0); iSTAT Site Art Line; iSTAT Sodium 141 mmol/L (135-144)
--- NOTE | 2022-02-22 10:09 | Neurology Progress Note ---
Date of Service February 22, 2022 Assessment & Plan (1) Seizure: (2) Acute encephalopathy: (3) Acute and chronic respiratory failure with hypoxia: Plan: Patient had two witnessed generalized seizures on February 20. When I 1st saw her on February 21, she had a significant encephalopathy, which was likely multifactorial. this morning, she is much improved and can speak and follow commands. I did not note any focal neurologic findings on examination today. Overall, I suspect her encephalopathy is due to a post ictal state (which can last 2-3 days following seizures). Additionally, generalized hypoxia, from her pulmonary condition, results in encephalopathy. Although the patient had elevated white count on admission no source of infection has been identified. She has no focal findings on exam and lumbar puncture showed no evidence of meningoencephalitis. MRI of the brain showed no evidence of stroke or encephalitis either. EEG was slow in general with no focal findings or potentially epileptogenic activity. The origin of the seizures not readily apparent, but hypoxia could trigger a seizure as could any toxic, metabolic, or infectious etiology. she has had no seizures since admission and has a low normal Depakote level. Recommendations: 1. Keep off levetiracetam. 2. Continue Depakote 250 milligrams, Q 6 hours IV, checking a trough Depakote level each morning. Once the patient is able to take p.o. well, I would switch her to 500 milligrams Depakote ER twice daily. Overall, I spent a total of 35minutes with this case including review of records, direct evaluation the patient at bedside, and discussion of the case with the RN at bedside and Dr. Avalos including differential diagnosis and treatment options. Admission and Anticipated Discharge Date Admission Date: February 20, 2022 Subjective the patient is extubated and can speak with me. She is not in any pain and "feels pretty good" Blood pressure is 162/81 with a pulse of 114 and she is afebrile. Chest x-ray showed no acute chest disease Nursing reports no new seizures or events. CBC shows a mild but slightly improving anemia. White count is normal. Chem profile was largely unremarkable. A trough Depakote level this morning was 44. Results & Data ([facility]) Vital Signs (Past 12 Hours) Vital Signs Temp Pulse Pulse Resp BP Pulse Ox 02/22/22 07:38 114 H 17 96 05/24/22 06:00 37.0 C 100 H 16 162/81 H 92 02/22/22 05:14 113 H 143/75 H 02/22/22 05:00 37.0 C 120 H 18 143/75 H 94 02/22/22 04:00 37.1 C 115 H 24 161/79 H 94 02/22/22 03:00 37.0 C 120 H 21 157/71 H 95 02/22/22 02:00 36.9 C 119 H 19 162/74 H 93 02/22/22 01:00 36.8 C 115 H 19 143/78 H 93 02/22/22 00:00 36.9 C 123 H 21 172/98 H 94 02/21/22 23:00 36.8 C 113 H 18 169/81 H 96 02/21/22 22:00 36.8 C 110 H 16 176/74 H 95 Exam (Neuro) Physical Exam: She is awake and fairly alert. Speech was reasonable without obvious a phase a or dysarthria, but the patient did not have teeth in and "mumbled" at times. She followed commands well and was pleasant and cooperative. Extraocular eye muscles are intact without nystagmus. There is no facial droop and tongue was midline. There were no abnormal involuntary movements of the limbs noted. strength was symmetrical in the limbs being on essentially 5/5 proximally and distally bilaterally. There was withdrawal to light stimulation of the feet bilaterally and toes were equivocal to plantar stimulation bilaterally. PG Care Time/CCT Total # of Minutes Spent Total Time Spent with Patient: Total time spent is greater than 50% in coordination of care (as documented) at patient's floor/unit and/or counseling patient: Coding Level of Care Code 38180 Subseq Hosp Care Lvl 3 Diagnoses Seizure R56.9 Acute encephalopathy G93.40 Acute and chronic respiratory failure with hypoxia J96.21
--- NOTE | 2022-02-22 14:52 | Electrocardiogram Report ---
Test Reason : Blood Pressure : / mmHG Vent. Rate : 121 BPM Atrial Rate : 121 BPM P-R Int : 152 ms QRS Dur : 078 ms QT Int : 302 ms P-R-T Axes : 067 026 069 degrees QTc Int : 428 ms Sinus tachycardia Nonspecific ST and T wave abnormality Abnormal ECG When compared with ECG of 21-FEB-2022 05:49, Criteria for Septal infarct are no longer Present T wave amplitude has decreased in Inferior leads Nonspecific T wave abnormality now evident in Lateral leads Confirmed by Elías Keenan ([id number]) on 02/22/2022 2:52:06 PM Referred By: REFERRED SELF Confirmed By:Elías Keenan
--- NOTE | 2022-02-22 14:58 | Hospitalist Progress Note ---
Date of Service February 22, 2022 Assessment & Plan (1) Acute encephalopathy: Plan: From post ictal causes and suspected sepsis which is metabolic in nature. Now resolved. Continue supportive care. CT head and MRI brain both showing mastoiditis bilaterally as well as acute sinusitis MRI brain negative for stroke otherwise. Puncture CSF studies are negative. Appreciate neurology consultation. Antiepileptic drug management changed from Keppra to Depakote Toxicology screen negative (2) Seizure-like activity: Plan: Reported and witnessed by EMS. Depakote. EEG without seizure activity. MRI brain negative. Likely secondary to hypoxia, infection, fever. Appreciate neurology consultation (3) Sepsis: Plan: Secondary to acute sinusitis and mastoiditis. Meningitis has been ruled out. ABX to continue with cefepime and doxycycline. Acyclovir has now been discontinued as herpes meningitis ruled out Continue supportive care, IV fluids (4) Acute and chronic respiratory failure with hypoxia: Plan: Resolved. Extubated today, february 22 . Steroid therapy. Acute on chronic hypercarbic respiratory failure in the setting of non compliant BiPAP/CPAP use. (5) Chronic kidney disease, stage 3a: Plan: GERALD II on CKD III in the setting of sepsis/encephalopathy/hypercarbic respiratory failure. Intake and output. Serial labs. Avoid nephrotoxic agents. - (6) Obesity: Plan: Chronic. Continue with disease modifying meds- insulin for DM, Statin, ASA, BB. (7) Hypertension: Plan: Being replaces Cardene drip. Intervenous labetalol as needed (8) COPD (chronic obstructive pulmonary disease): Plan: COPD exacerbation as well as noncompliance with overnight positive pressure therapy. Brevspi will be restarted once extubated. Eventual transition to prednisone when appropriate. Son reports continued non-compliance with her BiPAP. She has history hypercarbic respiratory failure requiring intubation (9) Elevated troponin: Plan: No chest pain.. ECG without acute changes. Likely related to hypoxia, hypercarb ia, acidosis demand on the heart. As of acute coronary syndrome (10) Acidosis: Plan: Hypercarbic respiratory acidosis-Now resolved. (11) Sinusitis: Plan: CSF negative for infection. Continue cefepime, Daptomycin for sinusitis/mastoiditis. Await final blood cultures (12) Mastoiditis: Plan: As above (13) Pulmonary nodules: Plan: Right lower lobe nodule seen on CT chest. Follow-up CT chest 3 months Plan: DVT prophylaxis : Heparin SQ Disposition: To be determineds Admission and Anticipated Discharge Date Admission Date: February 20, 2022 Subjective The patient has been extubated and is alert. No acute distress. Mardin drip for blood pressure control has been weaned off and clonidine started in its place. She remains on cefepime and doxycycline. Lumbar puncture CSF studies are negative. Herpes infection has been ruled out. He will be transferred out of the ICU today, February 22 Review of Systems Review of Systems: Constitutional-no fever or chills ENT-no blurred vision, no double vision, no epistaxis, no sore throat Respiratory-no cough, no wheezing, no shortness of breath Cardiac-no palpitations, no chest pain, no syncope GI-no nausea, vomiting, diarrhea, melena, hematochezia -no urinary retention, no urinary incontinence, no dysuria, no hematuria Musculoskeletal-no joint pain, no muscle tenderness Skin-no bruising, no rashes, no pruritus Neuro-no isolated weakness, no paresthesia, no weakness Psych-no depression, no anxiety Physical Exam Physical Exam: General-alert and oriented x3, no fevers, no chills HEENT-head atraumatic and normocephalic, TMs intact bilaterally, pupils equal and reactive to light, extraocular muscles intact Neck-no lymphadenopathy or thyromegaly, trachea midline Chest-clear to auscultation percussion. No rales wheezing or rhonchi Cardiac-regular rate and rhythm, normal S1 and S2, no murmurs Abdomen-normal bowel sounds, nontender, no hepatosplenomegaly Extremities-no cyanosis, clubbing, or edema Neuro-cranial nerves II through XII intact, motor and sensory function within normal limits, strength symmetrical , no focal deficits Psych-normal affect, normal mood Results & Data Results & Data ([facility]) Vital Signs (Past 12 Hours) Vital Signs Temp Pulse Pulse Resp BP Pulse Ox 02/22/22 13:00 36.9 C 109 H 17 156/83 H 96 02/22/22 12:00 36.9 C 111 H 17 150/81 H 02/22/22 11:00 36.9 C 106 H 28 H 94 02/22/22 10:00 36.9 C 105 H 21 157/70 H 94 02/22/22 09:00 37.0 C 83 36 H 131/68 98 02/22/22 08:00 36.9 C 107 H 19 95 02/22/22 07:38 114 H 17 96 02/22/22 06:00 37.0 C 100 H 16 162/81 H 92 02/22/22 05:14 113 H 143/75 H 02/22/22 05:00 37.0 C 120 H 18 143/75 H 94 02/22/22 04:00 37.1 C 115 H 24 161/79 H 94 02/22/22 03:00 37.0 C 120 H 21 157/71 H 95 Laboratory Results 02/22/22 04:35 02/22/22 04:35 PG Care Time/CCT Total # of Minutes Spent Total Time Spent with Patient: Total time spent is greater than 50% in coordination of care (as documented) at patient's floor/unit and/or counseling patient: Coding Level of Care Code 41314 Subseq Hosp Care Lvl 3 Diagnoses Acute encephalopathy G93.40 Seizure-like activity R56.9 Sepsis A41.9 Acute and chronic respiratory failure with hypoxia J96.21 Chronic kidney disease, stage 3a N18.31 Obesity E66.9 Hypertension I10 COPD (chronic obstructive pulmonary disease) J44.9 COPD type: unspecified COPD Elevated troponin R77.8 Acidosis E87.2 Sinusitis J32.9 Mastoiditis H70.90 Pulmonary nodules R91.8 (1) COPD (chronic obstructive pulmonary disease) COPD type: unspecified COPD Qualified Code(s): J44.9 - Chronic obstructive pulmonary disease, unspecified
[2022-02-22] MEDS: carvediloL 6.25 MG TAB PO SCH ×2 (15:31→20:23)
[2022-02-22] MEDS: amLODIPine BESYLATE 5 MG TAB PO SCH (15:31)
[2022-02-22] MEDS: CHECK CLONIDINE PATCH PLACEMENT SCH (15:32)
[2022-02-22] MEDS: SENNOSIDES 8.8 MG/5 ML UDC PO SCH (20:23)
[2022-02-23] MEDS: CHECK CLONIDINE PATCH PLACEMENT SCH ×4 (01:21→23:15)
[2022-02-23] MEDS: VALPROATE SOD 250 MG in DEXTROSE 5% 50 ML IV SCH ×2 (04:04→11:12)
[2022-02-23 04:48] LABS: Basophils # (auto) 0.01 K/uL (0-0.2); Basophils % (auto) 0.2 %; Eosinophils % (auto) 1.8 %; Hemoglobin 10.6 g/dL (12.0-16.0); Immature Granulocytes # (auto) 0.01 K/uL (0.00-0.02); Immature Granulocytes % (auto) 0.2 %; Lymphocytes # (auto) 1.49 K/uL (1.2-3.4); Lymphocytes % (auto) 27.5 %; Mean Corpuscular Hgb Conc 33.1 g/dL (32-36); Mean Corpuscular Volume 84.4 fL (80-100); Mean Platelet Volume 9.8 fL (7.4-10.4); Monocytes # (auto) 0.36 K/uL (0.11-0.59); Monocytes % (auto) 6.7 %; Neutrophils # (auto) 3.44 K/uL (1.4-6.5); Neutrophils % (auto) 63.6 %; Platelet Count 131 K/uL (130-400); RDW Coefficient of Variation 13.3 % (11.5-14.5); RDW Standard Deviation 40.9 fL (36.4-46.3); Red Blood Count 3.79 M/uL (4.2-5.4); White Blood Count 5.41 K/uL (4.8-10.8)
[2022-02-23 04:57] LABS: Prothrombin Time 10.4 Seconds (9.0-12.0)
[2022-02-23 05:07] LABS: Albumin Level 3.3 gm/dl (3.4-5.0); BUN Creatinine Ratio 21.1 (10-20); Bilirubin,Total 0.4 mg/dl (0.2-1.0); Calcium 9.2 mg/dl (8.5-10.1); Creatinine Clr Calc Pharmacy 72.5 ml/min; Est GFR (African American) 94.1 ml/min; Est GFR (Non-African American) 81.2 ml/min; Magnesium 1.5 mg/dl (1.7-2.4); Phosphorus 2.5 mg/dl (2.5-4.9); Potassium 3.6 mmol/L (3.5-5.1); Total Protein 5.8 gm/dl (6.0-8.3)
[2022-02-23] MEDS: HEPARIN SOD 5,000 UNIT/0.5 ML VIAL SQ SCH ×3 (05:51→20:54)
[2022-02-23] MEDS: BUDESONIDE 0.5 MG/2 ML VIAL (PULMICORT) INH SCH ×2 (07:06→19:34)
[2022-02-23] MEDS: DOXYCYCLINE HYCLATE 100 MG in DEXTROSE 5% 100 ML IV SCH ×2 (07:41→18:31)
[2022-02-23] MEDS: CEFEPIME 2,000 MG in SYRINGE 0 ML IV SCH ×2 (07:41→18:31)
[2022-02-23] MEDS: PANTOprazole 40 MG in SYRINGE 0 ML IV SCH (07:42)
[2022-02-23] MEDS: amLODIPine BESYLATE 5 MG TAB PO SCH (07:48)
[2022-02-23] MEDS: carvediloL 6.25 MG TAB PO SCH (07:48)
[2022-02-23] MEDS: PRAVASTATIN SOD 40 MG TAB PO SCH (07:48)
[2022-02-23] MEDS: INSULIN ASPART PER UNIT SC SCH ×4 (09:13→20:53)
--- NOTE | 2022-02-23 09:58 | Neurology Progress Note ---
Date of Service February 23, 2022 Assessment & Plan (1) Seizure: (2) Acute encephalopathy: (3) Acute and chronic respiratory failure with hypoxia: Plan: Patient had two witnessed generalized seizures on February 20. When I 1st saw her on February 21, she had a significant encephalopathy, which was likely multifactorial. she is much improved over the last 48 hours. I did not note any focal neurologic findings on examination today. Overall, I suspect her encephalopathy was due to a post ictal state (which can last 2-3 days following seizures). Additionally, generalized hypoxia, from her pulmonary condition, results in encephalopathy. Although the patient had elevated white count on admission, no source of infection has been identified. Lumbar puncture showed no evidence of meningoencephalitis. MRI of the brain showed no evidence of stroke or encephalitis either. EEG was slow in general with no focal findings or potentially epileptogenic activity. The origin of the seizures not readily apparent, but hypoxia could trigger a seizure as could any toxic, metabolic, or infectious etiology. She has had no seizures since admission and has a mildly low Depakote level. Recommendations: 1. Keep off levetiracetam. 2. since the patient is taking p.o. could change Depakote to 500 milligram ER twice daily. 3. Overall, I have no further neurologic testing or treatment recommendations to make at this time. 4. We can follow up as an outpatient in Neurology in 1-2 weeks with the Neurology PA. A Depakote level in 1 week would be reasonable. Overall, I spent a total of 35 minutes with this case including review of records, direct evaluation the patient at bedside, and discussion of the case with Dr. Parsons, including differential diagnosis and treatment options. Admission and Anticipated Discharge Date Admission Date: February 20, 2022 Subjective The patient has no complaint of pain or headache. She is not dizzy with sitting up. She does feel somewhat weak with walking and tires easily. She is on 4 liters nasal cannula O2 currently. She has had no seizures since February 20. Blood pressure is 214/96. CBC shows stable anemia and Chem profile was unremarkable except for a low magnesium of 1.5. Valproic acid level was 37. Results & Data ([facility]) Vital Signs (Past 12 Hours) Vital Signs Temp Pulse Pulse Pulse Resp BP Pulse Ox 02/23/22 07:20 36.7 C 101 H 24 214/96 H 97 02/23/22 07:06 103 H 18 94 02/23/22 06:37 36.8 C 18 175/84 H 97 02/23/22 06:11 101 H 02/23/22 03:24 36.9 C 96 H 18 171/84 H 94 02/22/22 23:36 36.3 C L 90 18 157/84 H 93 02/22/22 22:22 91 H Exam (Neuro) Physical Exam: she is awake and alert. Speech is sparse but without obvious a facial or dysarthria. Mood seems reasonable. Patient is symmetrical strength in all 4 limbs. She can walk slowly with a walker and the assistance of 1, for support. I watch her transfer from bed to chair. There were no abnormal involuntary movements seen. PG Care Time/CCT Total # of Minutes Spent Total Time Spent with Patient: Total time spent is greater than 50% in coordination of care (as documented) at patient's floor/unit and/or counseling patient: Coding Level of Care Code 28704 Subseq Hosp Care Lvl 3 Diagnoses Seizure R56.9 Acute encephalopathy G93.40 Acute and chronic respiratory failure with hypoxia J96.21
--- NOTE | 2022-02-23 11:09 | Ultrasound Report ---
DOPPLER ULTRASOUND OF THE RENAL ARTERIES CLINICAL HISTORY: Severe hypertension. COMPARISON STUDY: CT of the abdomen and pelvis October 03, 2020. FINDINGS: The right kidney was not well visualized on this exam. There is no left hydronephrosis. The left kidney measures approximately 9 cm in maximal dimension. Peak systolic velocity within the abdo malena aorta was 85 cm/s. The bilateral renal arteries and veins are partially obscured. Therefore, th is study is nondiagnostic for evaluation for renal artery stenosis. IMPRESSION: Exam compromised by suboptimal penetration with obscured right kidney. Nondiagnostic yahir luation for renal artery stenosis. ACT 112: Negative or not required by law. Electronically signed by: Daniel Babb M.D. 02/23/2022 11:08 AM
[2022-02-23] MEDS: METOPROLOL TARTRATE 50 MG TAB PO SCH ×2 (11:12→20:53)
[2022-02-23] MEDS: hydrALAZINE TAB 50 MG TAB PO SCH ×3 (11:13→18:32)
[2022-02-23] MEDS ORDERED: HEPARIN 100 UNIT/ML 5ML FLUSH ONE (13:07)
[2022-02-23] MEDS ORDERED: Nursing to Pharmacy Communication SCH (13:15)
--- NOTE | 2022-02-23 14:11 | Hospitalist Progress Note ---
Date of Service February 23, 2022 Assessment & Plan (1) Acute encephalopathy: Plan: From post ictal causes and suspected sepsis which is metabolic in nature. Now resolved. Continue supportive care. CT head and MRI brain both showing mastoiditis bilaterally as well as acute sinusitis MRI brain negative for stroke otherwise. Lumbar puncture CSF studies are negative. Appreciate neurology consultation. Antiepileptic drug management changed from Keppra to Depakote. Switch to oral dosing today, February 23. Toxicology screen negative (2) Seizure-like activity: Plan: Reported and witnessed by EMS. Depakote therapy. EEG without seizure activity. MRI brain negative. Likely secondary to hypoxia, infection, fever. Appreciate neurology consultation (3) Sepsis: Plan: Secondary to acute sinusitis and mastoiditis. Meningitis has been ruled out. ABX to continue with cefepime and doxycycline. Acyclovir has now been discontinued as herpes meningitis ruled out Continue supportive care (4) Acute and chronic respiratory failure with hypoxia: Plan: Resolved. Extubated on February 22 . Steroid therapy. Acute on chronic hypercarbic respiratory failure in the setting of non compliant BiPAP/CPAP use. (5) Chronic kidney disease, stage 3a: Plan: GERALD II on CKD III in the setting of sepsis/encephalopathy/hypercarbic respiratory failure. Monitor intake and output. Serial labs. Avoid nephrotox ic agents. - (6) Obesity: Plan: Chronic. Weight loss recommended (7) Hypertension: Plan: Now on hydralazine and metoprolol. Previously on Cardene drip when admitted (8) COPD (chronic obstructive pulmonary disease): Plan: COPD exacerbation as well as noncompliance with overnight positive pressure therapy. Son reports continued non-compliance with her BiPAP. She has history hypercarbic respiratory failure requiring intubation (9) Elevated troponin: Plan: No chest pain.. ECG without acute changes. Likely related to hypoxia, hypercarbia, acidosis demand on the heart. No evidence of acute coronary syndrome (10) Acidosis: Plan: Hypercarbic respiratory acidosis. Now resolved. (11) Sinusitis: Plan: CSF negative for infection. Continue cefepime, doxycycline for sinusit is/mastoiditis. Blood cultures negative to date (12) Mastoiditis: Plan: As above (13) Pulmonary nodules: Plan: Right lower lobe nodule seen on CT chest. Follow-up CT chest 3 months Plan: DVT prophylaxis : Heparin SQ Disposition: To be determined Admission and Anticipated Discharge Date Admission Date: February 20, 2022 Subjective Alert and oriented. No acute problems. She is now on hydralazine and metoprolol for blood pressure control. Renal artery ultrasound is nondiagnostic due to technical problems. Intravenous valproic acid switched to oral dosing. Review of Systems Review of Systems: Constitutional-no fever or chills ENT-no blurred vision, no double vision, no epistaxis, no sore throat Respiratory-no cough, no wheezing, no shortness of breath Cardiac-no palpitations, no chest pain, no syncope GI-no nausea, vomiting, diarrhea, melena, hematochezia -no urinary retention, no urinary incontinence, no dysuria, no hematuria Musculoskeletal-no joint pain, no muscle tenderness Skin-no bruising, no rashes, no pruritus Neuro-no isolated weakness, no paresthesia. Generalized weakness Psych-no depression, no anxiety Physical Exam Physical Exam: General-alert and oriented x3, no fevers, no chills HEENT-head atraumatic and normocephalic, TMs intact bilaterally, pupils equal and reactive to light, extraocular muscles intact Neck-no lymphadenopathy or thyromegaly, trachea midline Chest-clear to auscultation percussion. No rales wheezing or rhonchi Cardiac-regular rate and rhythm, normal S1 and S2, no murmurs Abdomen-normal bowel sounds, nontender, no hepatosplenomegaly Extremities-no cyanosis, clubbing, or edema Neuro-cranial nerves II through XII intact, motor and sensory function within normal limits, strength symmetrical with generalized weakness, no focal deficits Psych-normal affect, normal mood Results & Data Results & Data ([facility]) Vital Signs (Past 12 Hours) Vital Signs Temp Pulse Pulse Pulse Resp BP Pulse Ox 02/23/22 11:13 36.6 C 80 24 167/73 H 98 02/23/22 07:20 36.7 C 101 H 24 214/96 H 97 02/23/22 07:06 103 H 18 94 02/23/22 06:37 36.8 C 18 175/84 H 97 02/23/22 06:11 101 H 02/23/22 03:24 36.9 C 96 H 18 171/84 H 94 Laboratory Results 02/23/22 04:17 02/23/22 04:17 PG Care Time/CCT Total # of Minutes Spent Total Time Spent with Patient: Total time spent is greater than 50% in coordination of care (as documented) at patient's floor/unit and/or counseling patient: Coding Level of Care Code 49092 Subseq Hosp Care Lvl 3 Diagnoses Acute encephalopathy G93.40 Seizure-like activity R56.9 Sepsis A41.9 Acute and chronic respiratory failure with hypoxia J96.21 Chronic kidney disease, stage 3a N18.31 Obesity E66.9 Hypertension I10 COPD (chronic obstructive pulmonary disease) J44.9 COPD type: unspecified COPD Elevated troponin R77.8 Acidosis E87.2 Sinusitis J32.9 Mastoiditis H70.90 Pulmonary nodules R91.8 (1) COPD (chronic obstructive pulmonary disease) COPD type: unspecified COPD Qualified Code(s): J44.9 - Chronic obstructive pulmonary disease, unspecified
[2022-02-23] MEDS ORDERED: traMADol HCL 50 MG TABLET PO STA (17:18)
[2022-02-23] MEDS ORDERED: traMADol HCL 50 MG TABLET PO PRN (17:23)
[2022-02-23] MEDS: DIVALPROEX EXTENDED RELEASE 500 MG TAB PO SCH (20:52)
[2022-02-23] MEDS: SENNOSIDES 8.8 MG/5 ML UDC PO SCH (20:54)
[2022-02-24] MEDS: HEPARIN SOD 5,000 UNIT/0.5 ML VIAL SQ SCH ×3 (06:00→20:30)
[2022-02-24] MEDS: hydrALAZINE TAB 50 MG TAB PO SCH ×4 (06:00→20:28)
[2022-02-24] MEDS: DOXYCYCLINE HYCLATE 100 MG in DEXTROSE 5% 100 ML IV SCH ×2 (06:01→18:04)
[2022-02-24] MEDS: CEFEPIME 2,000 MG in SYRINGE 0 ML IV SCH ×2 (06:01→18:04)
[2022-02-24] MEDS: BUDESONIDE 0.5 MG/2 ML VIAL (PULMICORT) INH SCH ×2 (07:06→19:33)
[2022-02-24] MEDS: DIVALPROEX EXTENDED RELEASE 500 MG TAB PO SCH ×2 (08:17→20:27)
[2022-02-24] MEDS: PANTOprazole 40 MG TAB PO SCH (08:17)
[2022-02-24] MEDS: PRAVASTATIN SOD 40 MG TAB PO SCH (08:17)
[2022-02-24] MEDS: METOPROLOL TARTRATE 50 MG TAB PO SCH (08:17)
[2022-02-24] MEDS: INSULIN ASPART PER UNIT SC SCH ×4 (08:19→20:28)
[2022-02-24] MEDS: CHECK CLONIDINE PATCH PLACEMENT SCH ×3 (08:19→23:30)
--- NOTE | 2022-02-24 13:03 | Hospitalist Progress Note ---
Date of Service February 24, 2022 Assessment & Plan (1) Acute encephalopathy: Plan: From post ictal causes and suspected sepsis which is metabolic in nature. Now resolved. Continue supportive care. CT head and MRI brain both showing mastoiditis bilaterally as well as acute sinusitis MRI brain negative for stroke otherwise. Lumbar puncture CSF studies are negative. Appreciate neurology consultation. Antiepileptic drug management changed from Keppra to Depakote. Switched to oral dosing on February 23. Toxicology screen negative (2) Seizure-like activity: Plan: Reported and witnessed by EMS. Suppressed with Depakote therapy. EEG without seizure activity. MRI brain negative. Likely secondary to hypoxia, infection, fever. Appreciate neurology consultation (3) Sepsis: Plan: Secondary to acute sinusitis and mastoiditis. Meningitis has been ruled out. ABX to continue with cefepime and doxycycline. Acyclovir has now been di scontinued as herpes meningitis ruled out Continue supportive care (4) Acute and chronic respiratory failure with hypoxia: Plan: Resolved. Extubated on February 22 . Treated with steroid therapy. Acute on chronic hypercarbic respiratory failure in the setting of non compliant BiPAP/CPAP use. (5) Chronic kidney disease, stage 3a: Plan: GERALD II on CKD III in the setting of sepsis/encephalopathy/hypercarbic respiratory failure. Monitor intake and output. Serial labs. Avoid nephrotoxic agents. - (6) Obesity: Plan: Chronic. Weight loss recommended (7) Hypertension: Plan: Now on hydralazine and metoprolol. Both medications uptitrated today, February 24. Previously on Cardene drip when admitted (8) COPD (chronic obstructive pulmonary disease): Plan: COPD exacerbation as well as noncompliance with overnight positive pressure therapy. Son reports continued non-compliance with her BiPAP. She has history hypercarbic respiratory failure requiring intubation (9) Elevated troponin: Plan: No chest pain. ECG without acute changes. Likely related to hypoxia, hypercarbia, acidosis demand on the heart. No evidence of acute coronary syndrome (10) Acidosis: Plan: Hypercarbic respiratory acidosis. Now resolved. (11) Sinusitis: Plan: CSF negative for infection. Continue cefepime, doxycycline for sinusitis/mastoiditis. Blood cultures negative to date (12) Mastoiditis: Plan: As above (13) Pulmonary nodules: Plan: Right lower lobe nodule seen on CT chest. Follow-up CT chest 3 months Plan: DVT prophylaxis : Heparin SQ Disposition: Probable SNF placement at discharge Admission and Anticipated Discharge Date Admission Date: February 20, 2022 Subjective Alert and oriented. Hydralazine and metoprolol uptitrated again today, February 24 better heart rate and blood pressure control. Oxygen saturation 96% on 4 L. She remains on cefepime and doxycycline for the sinusitis/mastoiditis. No recurrent seizure activity while on Depakote. Awaiting SNF placement. Review of Systems Review of Systems: Constitutional-no fever or chills ENT-no blurred vision, no double vision, no epistaxis, no sore throat Respiratory-no cough, no wheezing, no shortness of breath Cardiac-no palpitations, no chest pain, no syncope GI-no nausea, vomiting, diarrhea, melena, hematochezia -no urinary retention, no urinary incontinence, no dysuria, no hematuria Musculoskeletal-no joint pain, no muscle tenderness Skin-no bruising, no rashes, no pruritus Neuro-no isolated weakness, no paresthesia, no weakness Psych-no depression, no anxiety Physical Exam Physical Exam: General-alert and oriented x3, no fevers, no chills HEENT-head atraumatic and normocephalic, TMs intact bilaterally, pupils equal and reactive to light, extraocular muscles intact Neck-no lymphadenopathy or thyromegaly, trachea midline Chest-diminished breath sounds bilaterally. No rales wheezing or rhonchi Cardiac-regular rate and rhythm, normal S1 and S2, no murmurs Abdomen-normal bowel sounds, nontender, no hepatosplenomegaly Extremities-no cyanosis, clubbing, or edema Neuro-cranial nerves II through XII intact, motor and sensory function within normal limits, strength symmetrical , no focal deficits Psych-normal affect, normal mood Results & Data Results & Data ([facility]) Vital Signs (Past 12 Hours) Vital Signs Temp Pulse Pulse Pulse Resp BP Pulse Ox 02/24/22 11:43 36.7 C 82 22 202/91 H 93 02/24/22 08:00 36.7 C 91 H 20 177/81 H 96 02/24/22 07:07 86 16 95 02/24/22 06:09 83 02/24/22 04:00 36.7 C 84 18 165/80 H 98 Laboratory Results 02/23/22 04:17 02/23/22 04:17 PG Care Time/CCT Total # of Minutes Spent Total Time Spent with Patient: Total time spent is greater than 50% in coordination of care (as documented) at patient's floor/unit and/or counseling patient: Coding Level of Care Code 51779 Subseq Hosp Care Lvl 3 Diagnoses Acute encephalopathy G93.40 Seizure-like activity R56.9 Sepsis A41.9 Acute and chronic respiratory failure with hypoxia J96.21 Chronic kidney disease, stage 3a N18.31 Obesity E66.9 Hypertension I10 COPD (chronic obstructive pulmonary disease) J44.9 COPD type: unspecified COPD Elevated troponin R77.8 Acidosis E87.2 Sinusitis J32.9 Mastoiditis H70.90 Pulmonary nodules R91.8 (1) COPD (chronic obstructive pulmonary disease) COPD type: unspecified COPD Qualified Code(s): J44.9 - Chronic obstructive pulmonary disease, unspecified
[2022-02-24] MEDS: METOPROLOL TARTRATE 25 MG TAB PO SCH (20:29)
[2022-02-24] MEDS: SENNOSIDES 8.8 MG/5 ML UDC PO SCH (20:30)
[2022-02-25] MEDS: DOXYCYCLINE HYCLATE 100 MG in DEXTROSE 5% 100 ML IV SCH ×2 (06:00→18:44)
[2022-02-25] MEDS: CEFEPIME 2,000 MG in SYRINGE 0 ML IV SCH ×2 (06:00→18:38)
[2022-02-25] MEDS: HEPARIN SOD 5,000 UNIT/0.5 ML VIAL SQ SCH ×3 (06:00→21:03)
[2022-02-25] MEDS: BUDESONIDE 0.5 MG/2 ML VIAL (PULMICORT) INH SCH ×2 (07:20→19:46)
[2022-02-25] MEDS: INSULIN ASPART PER UNIT SC SCH ×4 (08:40→20:32)
[2022-02-25] MEDS: hydrALAZINE TAB 50 MG TAB PO SCH ×3 (08:40→21:03)
[2022-02-25] MEDS: PANTOprazole 40 MG TAB PO SCH (08:41)
[2022-02-25] MEDS: PRAVASTATIN SOD 40 MG TAB PO SCH (08:41)
[2022-02-25] MEDS: METOPROLOL TARTRATE 25 MG TAB PO SCH ×2 (08:41→21:02)
[2022-02-25] MEDS: DIVALPROEX EXTENDED RELEASE 500 MG TAB PO SCH ×2 (08:41→21:03)
[2022-02-25] MEDS: CHECK CLONIDINE PATCH PLACEMENT SCH ×3 (08:45→23:36)
[2022-02-25 08:59] LABS: Basophils # (auto) 0.02 K/uL (0-0.2); Basophils % (auto) 0.3 %; Eosinophils # (auto) 0.37 K/uL (0-0.5); Eosinophils % (auto) 5.2 %; Hematocrit (blood only) 37.1 % (37-47); Hemoglobin 12.1 g/dL (12.0-16.0); Immature Granulocytes # (auto) 0.04 K/uL (0.00-0.02); Immature Granulocytes % (auto) 0.6 %; Lymphocytes # (auto) 1.68 K/uL (1.2-3.4); Lymphocytes % (auto) 23.7 %; Mean Corpuscular Hemoglobin 28.7 pg (25-34); Mean Corpuscular Hgb Conc 32.6 g/dL (32-36); Mean Corpuscular Volume 88.1 fL (80-100); Monocytes # (auto) 0.47 K/uL (0.11-0.59); Monocytes % (auto) 6.6 %; Neutrophils % (auto) 63.6 %; Platelet Count 146 K/uL (130-400); RDW Coefficient of Variation 13.8 % (11.5-14.5); RDW Standard Deviation 44.3 fL (36.4-46.3); Red Blood Count 4.21 M/uL (4.2-5.4); White Blood Count 7.08 K/uL (4.8-10.8)
[2022-02-25 10:33] LABS: BUN Creatinine Ratio 35.5 (10-20); Calcium 9.8 mg/dl (8.5-10.1); Creatinine Clr Calc Pharmacy 49.3 ml/min; Est GFR (African American) 60.2 ml/min; Est GFR (Non-African American) 51.9 ml/min; Potassium 3.5 mmol/L (3.5-5.1)
--- NOTE | 2022-02-25 11:47 | Hospitalist Progress Note ---
Date of Service February 25, 2022 Assessment & Plan (1) Acute encephalopathy: Plan: From post ictal causes and suspected sepsis which is metabolic in nature. Now resolved. Continue supportive care. CT head and MRI brain both showing mastoiditis bilaterally as well as acute sinusitis MRI brain negative for stroke otherwise. Lumbar puncture CSF studies are negative. Appreciate neurology consultation. Antiepileptic drug management changed from Keppra to Depakote. Switched to oral dosing on February 23. Toxicology screen negative (2) Seizure-like activity: Plan: Reported and witnessed by EMS. Suppressed with Depakote therapy. EEG without seizure activity. MRI brain negative. Likely secondary to hypoxia, infection, fever. Appreciate neurology consultation (3) Sepsis: Plan: Secondary to acute sinusitis and mastoiditis. Meningitis has been ruled out. ABX to continue with cefepime and doxycycline. Acyclovir has now been di scontinued as herpes meningitis ruled out Continue supportive care (4) Acute and chronic respiratory failure with hypoxia: Plan: Resolved. Extubated on February 22 . Treated with steroid therapy. Acute on chronic hypercarbic respiratory failure in the setting of non compliant BiPAP/CPAP use. (5) Chronic kidney disease, stage 3a: Plan: GERALD II on CKD III in the setting of sepsis/encephalopathy/hypercarbic respiratory failure. Monitor intake and output. Serial labs. Avoid nephrotoxic agents. - (6) Obesity: Plan: Chronic. Weight loss recommended (7) Hypertension: Plan: Now on hydralazine and metoprolol. Both medications uptitrated on February 24. Previously on Cardene drip when admitted (8) COPD (chronic obstructive pulmonary disease): Plan: COPD exacerbation as well as noncompliance with overnight positive pressure therapy. Son reports continued non-compliance with her BiPAP. She has history hypercarbic respiratory failure requiring intubation (9) Elevated troponin: Plan: No chest pain. ECG without acute changes. Likely related to hypoxia, hypercarbia, acidosis demand on the heart. No evidence of acute coronary syndrome (10) Acidosis: Plan: Hypercarbic respiratory acidosis. Now resolved. (11) Sinusitis: Plan: CSF negative for infection. Continue cefepime, doxycycline for sinusitis/mastoiditis. Blood cultures negative to date (12) Mastoiditis: Plan: As above (13) Pulmonary nodules: Plan: Right lower lobe nodule seen on CT chest. Follow-up CT chest 3 months Plan: DVT prophylaxis : Heparin SQ Dispositio: SNF placement at discharge, [facility] Admission and Anticipated Discharge Date Admission Date: February 20, 2022 Subjective Alert and oriented. No distress. Heart rate and blood pressure are now controlled. No recurrent seizure activity while on Depakote. She remains on cefepime and doxycycline for her sinusitis and mastoiditis. Eventual placement at [facility] probably next week after the holiday weekend. Review of Systems Review of Systems: Constitutional-no fever or chills ENT-no blurred vision, no double vision, no epistaxis, no sore throat Respiratory-no cough, no wheezing, no shortness of breath Cardiac-no palpitations, no chest pain, no syncope GI-no nausea, vomiting, diarrhea, melena, hematochezia -no urinary retention, no urinary incontinence, no dysuria, no hematuria Musculoskeletal-no joint pain, no muscle tenderness Skin-no bruising, no rashes, no pruritus Neuro-no isolated weakness, no paresthesia, no weakness Psych-no depression, no anxiety Physical Exam Physical Exam: General-alert and oriented x3, no fevers, no chills HEENT-head atraumatic and normocephalic, TMs intact bilaterally, pupils equal and reactive to light, extraocular muscles intact Neck-no lymphadenopathy or thyromegaly, trachea midline Chest-clear to auscultation percussion. No rales wheezing or rhonchi Cardiac-regular rate and rhythm, normal S1 and S2, no murmurs Abdomen-normal bowel sounds, nontender, no hepatosplenomegaly Extremities-no cyanosis, clubbing, or edema Neuro-cranial nerves II through XII intact, motor and sensory function within normal limits, strength symmetrical , no focal deficits Psych-normal affect, normal mood Results & Data Results & Data ([facility]) Vital Signs (Past 12 Hours) Vital Signs Temp Pulse Pulse Resp BP Pulse Ox 02/25/22 07:51 75 02/25/22 07:50 36.8 C 70 12 142/76 H 97 02/25/22 07:20 80 20 96 02/25/22 03:53 36.7 C 63 18 141/62 H 97 PG Care Time/CCT Total # of Minutes Spent Total Time Spent with Patient: Total time spent is greater than 50% in coordination of care (as documented) at patient's floor/unit and/or counseling patient: Coding Level of Care Code 51112 Subseq Hosp Care Lvl 3 Diagnoses Acute encephalopathy G93.40 Seizure-like activity R56.9 Sepsis A41.9 Acute and chronic respiratory failure with hypoxia J96.21 Chronic kidney disease, stage 3a N18.31 Obesity E66.9 Hypertension I10 COPD (chronic obstructive pulmonary disease) J44.9 COPD type: unspecified COPD Elevated troponin R77.8 Acidosis E87.2 Sinusitis J32.9 Mastoiditis H70.90 Pulmonary nodules R91.8 (1) COPD (chronic obstructive pulmonary disease) COPD type: unspecified COPD Qualified Code(s): J44.9 - Chronic obstructive pulmonary disease, unspecified
[2022-02-25 18:21] LABS: CSF, LDH 40 U/L (<=25); Cryptococcal Antigen Not Detected (Not Detected); Source CSF
[2022-02-25] MEDS: SENNOSIDES 8.8 MG/5 ML UDC PO SCH (21:03)
[2022-02-25] MEDS ORDERED: MICONAZOLE NITRATE POWDER 43 GM EXT PRN (21:41)
[2022-02-26] MEDS: HEPARIN SOD 5,000 UNIT/0.5 ML VIAL SQ SCH ×3 (06:08→22:53)
[2022-02-26] MEDS: DOXYCYCLINE HYCLATE 100 MG in DEXTROSE 5% 100 ML IV SCH ×2 (06:08→19:58)
[2022-02-26] MEDS: CEFEPIME 2,000 MG in SYRINGE 0 ML IV SCH ×2 (06:08→19:58)
[2022-02-26] MEDS: BUDESONIDE 0.5 MG/2 ML VIAL (PULMICORT) INH SCH ×2 (07:24→19:04)
[2022-02-26] MEDS: INSULIN ASPART PER UNIT SC SCH ×3 (08:13→18:06)
[2022-02-26] MEDS: CHECK CLONIDINE PATCH PLACEMENT SCH ×2 (08:14→16:09)
[2022-02-26] MEDS: PRAVASTATIN SOD 40 MG TAB PO SCH (08:14)
[2022-02-26] MEDS: METOPROLOL TARTRATE 25 MG TAB PO SCH ×2 (08:15→22:54)
[2022-02-26] MEDS: DIVALPROEX EXTENDED RELEASE 500 MG TAB PO SCH (08:15)
[2022-02-26] MEDS: PANTOprazole 40 MG TAB PO SCH (08:15)
[2022-02-26] MEDS: hydrALAZINE TAB 50 MG TAB PO SCH ×3 (08:15→22:54)
[2022-02-26] MEDS: DIVALPROEX SODIUM SPRINKLE/DEL-REL 125 MG CAP PO SCH ×2 (09:19→22:54)
[2022-02-26 10:25] LABS: Basophils # (auto) 0.02 K/uL (0-0.2); Basophils % (auto) 0.2 %; Eosinophils # (auto) 0.31 K/uL (0-0.5); Eosinophils % (auto) 2.5 %; Hematocrit (blood only) 37.5 % (37-47); Hemoglobin 11.8 g/dL (12.0-16.0); Immature Granulocytes # (auto) 0.08 K/uL (0.00-0.02); Immature Granulocytes % (auto) 0.6 %; Lymphocytes # (auto) 2.01 K/uL (1.2-3.4); Lymphocytes % (auto) 16.2 %; Mean Corpuscular Hemoglobin 27.8 pg (25-34); Mean Corpuscular Hgb Conc 31.5 g/dL (32-36); Mean Corpuscular Volume 88.4 fL (80-100); Mean Platelet Volume 11.1 fL (7.4-10.4); Monocytes # (auto) 0.87 K/uL (0.11-0.59); Neutrophils # (auto) 9.12 K/uL (1.4-6.5); Neutrophils % (auto) 73.5 %; Nucleated RBC # (auto) 0.03 K/uL (0-0); Nucleated RBC % (auto) 0.3 %; Platelet Count 165 K/uL (130-400); RDW Coefficient of Variation 14.1 % (11.5-14.5); RDW Standard Deviation 46.1 fL (36.4-46.3); Red Blood Count 4.24 M/uL (4.2-5.4); White Blood Count 12.41 K/uL (4.8-10.8)
[2022-02-26 10:52] LABS: BUN Creatinine Ratio 35.6 (10-20); Calcium 10.2 mg/dl (8.5-10.1); Creatinine Clr Calc Pharmacy 30.9 ml/min; Est GFR (African American) 33.9 ml/min; Est GFR (Non-African American) 29.2 ml/min; Potassium 3.6 mmol/L (3.5-5.1)
[2022-02-26] MEDS ORDERED: SODIUM CHLORIDE 0.9% 1000ML 500 ML IV ONE (12:28)
--- NOTE | 2022-02-26 12:32 | Hospitalist Progress Note ---
Date of Service February 26, 2022 Assessment & Plan (1) Acute on chronic respiratory failure with hypoxia and hypercapnia: Plan: Patient today with recurrent, severe acute respiratory acidosis/elevated pCO2. This is in the setting of chronic respiratory acidosis. Baseline pCO2 is ~60. She has not worn BIPAP since being off the ventilator earlier this stay. BIPAP applied and titrated throughout the day. Moving forward she will need nightly BIPAP as well as during naps. Suspect ROZ; cannot rule out OHS as well. She is on baseline O2 at home, ~4-6 liters. Ok to titrate O2 to maintain sats 90-92%. CXR today free of infiltrates. No wheezing to suggest COPD exacerbation. Cause of acute respiratory acidosis? Early recurrent sepsis? tramadol use (although she only took 1 dose yesterday)? another metabolic insult? other? (2) Hypothermia: Plan: Recurrent sepsis vs acidosis vs hormonal (adrenal crisis, severe hypothyroidism) vs other. Bear hugger/warming blanket. Check TSH, FT4, and cortisol tonight -- has empty sella on MRI brain which puts her at risk of hypopituitarism. [place] steroids if necessary. She is already on cefepime + doxy (had been using such for sinusitis/m astoiditis). Will add daptomycin for enterococcal & MRSA coverage. Send u/a and urine cx from abdullahi. Re-Check blood cultures. (3) Acute metabolic encephalopathy: Plan: 2nd to severe respiratory acidosis & hypothermia. Can't rule out toxic effects from clonidine, tramadol, etc. HOLD clonidine. HOLD tramadol. Consider repeat head CT if mentation does not improve despite correction of hypercapnea. MRI brain from earlier in the stay noted. (4) Empty sella: Plan: Seen on MRI brain earlier this admission. In light of recurrent sepsis-like picture, resp failure, low BP, etc -- check TSH, FT4, and cortisol. (5) Acute kidney injury: Plan: Likely ATN from prerenal causes (poor PO intake over the last few days, etc). Can't rule out contrast nephropathy from CT contrast. Can't rule out obstruction - consider CT a/p or renal u/s. Abdullahi was exchanged to ensure abdullahi was not obstructed. 2 saline boluses given today followed by maintenance isotonic fluid. BMP again in am. Avoid nephrotic agents. (6) Hypomagnesemia: Plan: Replace 2 gm mag sulfate. repeat mag level am. (7) Seizure-like activity: Plan: Reported and witnessed by EMS just prior to admission. EEG without seizure activity. MRI brain negative. Exact etiology uncertain. Seen by neurology earlier this stay - depakote advised. Depakote level checked and found to be acceptable. No seizure activity witnessed by staff. (8) Sepsis: Plan: Treated for such early in the stay. Thought to be have maxillary sinusitis and mastoiditis (although no clinical evidence of latter on exam today). Meningitis ruled out early in stay s/p normal LP. Has been on cefepime + doxycycline since earlier in the stay - continue both. Add daptomycin for MRSA/enterococcal coverage empirically. Given today's events - low temperature, altered MS, GERALD, etc - could have recurrent sepsis thus repeat blood cultures; u/a & urine cx. CXR checked - no obvious pneumonia. Consider repeat COVID testing. Cortisol level to be checked this evening as well. (9) Chronic kidney disease, stage 3a: Plan: baseline CrCl 50-60 now with GERALD BMP in am (10) Obesity: Plan: BMI 29 (11) Hypertension: Plan: Now with hypotension. Remove clonidine patch. HOLD oral metoprolol, hydralazine, etc. (12) COPD (chronic obstructive pulmonary disease): Plan: Does not appear to be in exacerbation at this time. See above regarding today's events. (13) Elevated troponin: Plan: Peak HS trop was 187 earlier in stay -- likely 2nd to myocardial demand ischemia in setting of respiratory failure. (14) Sinusitis: Plan: Remains on cefepime, doxycycline for sinusitis/mastoiditis. See above. (15) Mastoiditis: Plan: b/l - seen on MRI brain. clinically - no evidence of such - no inflammation/swelling/tenderness over either mastoid; ears symmetric; etc. follow. (16) Pulmonary nodules: Plan: Right lower lobe nodule seen on CT chest earlier in the stay. Follow-up CT chest 3 months. (17) DVT prophylaxis: Plan: heparin 5000 TID Plan: Ruddy balbuena, extensively updated by phone this evening plan of care d/w night resident physician low threshold to transfer patient back to ICU if she continues with refractory hypothermia, resp acidosis, etc total critical care time today in light of hypothermia/sepsis/acute on chronic resp failure/GERALD - complex care coordination of life-threatening medical problems - 90 minutes Admission and Anticipated Discharge Date Admission Date: February 20, 2022 Subjective I was contacted early this am by nursing staff that patient was lethargic, unable to take her medications, did not eat breakfast, and that her UOP was poor. Upon arrival the patient was very lethargic, only opening her eyes briefly to her name being called. She did not follow commands. She did not speak or answer questions. On exam her feet were cool and pulses were diminished. A rectal temp was checked and was <36 C. Bear hugger (warming blanket) applied. I suspected she had hypercarbia and BIPAP was ordered. Labs were drawn and a short time later her pCO2 on blood gas was found to be in the high 80s with pH <7.2. Fluid bolus was given followed by maintenance fluids. CXR did not show any discrete infiltrates. Repeat VBG in the afternoon showed slowly improving pH and pCO2. Despite several hours of the warming blanket her temp had still not risen to normal. Warming blanket continued. Another VBG in the early evening showed persistent respiratory acidosis; order given to increase BIPAP to 14/6 (from 12/5) Son Ruddy updated by phone this evening. An additional fluid bolus was given in the early evening due to ongoing low temp, low BP, and poor UOP. Review of Systems Review of Systems: Unobtainable due to cognitive status and Unobtainable due to reduced consciousness Physical Exam Physical Exam: gen - lethargic, opens eyes for 2-3 seconds then quickly returns to sleep, looks older than stated age, no distress head - b/l mastoids without tenderness, inflammation/swelling; ears symmetric mouth - MM dry eyes - PERRL, about 2mm b/l neck - no JVD heart - RRR, s1 s2, no murmur lungs - crackles R base, no wheeze, no increased work of breathing abd - ?hernia midline abdomen (if present it seems reducible) vs redundant pannus; BS+, NT, no HSM ext - cool feet, no edema, pulses 1+ b/l skin - no generalized rash vascular - left subclavian CVC clean Results & Data Results & Data ([facility]) Vital Signs (Past 12 Hours) Vital Signs Temp Pulse Pulse Resp BP Pulse Ox 02/26/22 11:08 36.5 C 58 L 18 119/51 L 99 02/26/22 08:00 58 L 02/26/22 07:25 60 18 98 02/26/22 06:35 36.3 C L 53 L 18 127/75 94 02/26/22 02:50 36.5 C 55 L 18 103/55 L 98 Laboratory Results Laboratory Results - last 24 hr 02/20/22 02/25/22 02/25/22 15:30 17:41 20:18 WBC RBC Hgb Hct MCV MCH MCHC RDW Std Deviation RDW Coeff of Ana Plt Count MPV Immature Gran % (Auto) Neut % (Auto) Lymph % (Auto) [place] % (Auto) Eos % (Auto) Baso % (Auto) Neut # (Auto) Lymph # (Auto) [place] # (Auto) Eos # (Auto) Baso # (Auto) Immature Gran # (Auto) Absolute Nucleated RBC Nucleated RBC % (auto) Sodium Potassium Chloride Carbon Dioxide Anion Gap BUN Creatinine Est Cr Clr Drug Dosing Est GFR ( Amer) Est GFR (Non-Af Amer) BUN/Creatinine Ratio Glucose POC Glucose 110 H 123 H Calcium CSF LDH 40 H Cryptococcus Source CSF Cryptococcal Ag (Latex) Not Detected 02/26/22 02/26/22 02/26/22 07:33 09:39 09:39 WBC 12.41 H RBC 4.24 Hgb 11.8 L Hct 37.5 MCV 88.4 MCH 27.8 MCHC 31.5 L RDW Std Deviation 46.1 RDW Coeff of Ana 14.1 Plt Count 165 MPV 11.1 H Immature Gran % (Auto) 0.6 Neut % (Auto) 73.5 Lymph % (Auto) 16.2 [place] % (Auto) 7.0 Eos % (Auto) 2.5 Baso % (Auto) 0.2 Neut # (Auto) 9.12 H Lymph # (Auto) 2.01 [place] # (Auto) 0.87 H Eos # (Auto) 0.31 Baso # (Auto) 0.02 Immature Gran # (Auto) 0.08 H Absolute Nucleated RBC 0.03 H Nucleated RBC % (auto) 0.3 Sodium 142 Potassium 3.6 Chloride 103 Carbon Dioxide 33 H Anion Gap 6 BUN 63 H D Creatinine 1.77 H D Est Cr Clr Drug Dosing 30.9 Est GFR ( Amer) 33.9 Est GFR (Non-Af Amer) 29.2 BUN/Creatinine Ratio 35.6 H Glucose 129 H POC Glucose 132 H Calcium 10.2 H CSF LDH Cryptococcus Source Cryptococcal Ag (Latex) 02/26/22 11:40 WBC RBC Hgb Hct MCV MCH MCHC RDW Std Deviation RDW Coeff of Ana Plt Count MPV Immature Gran % (Auto) Neut % (Auto) Lymph % (Auto) [place] % (Auto) Eos % (Auto) Baso % (Auto) Neut # (Auto) Lymph # (Auto) [place] # (Auto) Eos # (Auto) Baso # (Auto) Immature Gran # (Auto) Absolute Nucleated RBC Nucleated RBC % (auto) Sodium Potassium Chloride Carbon Dioxide Anion Gap BUN Creatinine Est Cr Clr Drug Dosing Est GFR ( Amer) Est GFR (Non-Af Amer) BUN/Creatinine Ratio Glucose POC Glucose 142 H Calcium CSF LDH Cryptococcus Source Cryptococcal Ag (Latex) Diagnostic Findings Chest X-Ray 02/26/22 12:30 XR chest 1V portable HISTORY: right-sided rales; eval for pneumonia COMPARISON: Chest 02/22/2022. FINDINGS: Rotated study. The heart remains mildly enlarged. Trace bilateral pleural effusions. No pneumothorax. No focal lung consolidations to suggest pneumonia. No evidence for pulmonary edema. Left subclavian Port-A-Cath runs at the proximal SVC. This remains unchanged. IMPRESSION: Rotated study. Stable mild cardiomegaly with trace bilateral pleural effusions. ACT 112: Negative or not required by law. Electronically signed by: Homar Scott M.D. 02/26/2022 2:28 PM PG Care Time/CCT Total # of Minutes Spent Total Time Spent with Patient: Total time spent is greater than 50% in coordination of care (as documented) at patient's floor/unit and/or counseling patient: Critical Care Time: Yes Total Critical Care Time: 90 Coding Level of Care Code None Diagnoses Seizure-like activity R56.9 Sepsis A41.9 Chronic kidney disease, stage 3a N18.31 Obesity E66.9 Hypertension I10 COPD (chronic obstructive pulmonary disease) J44.9 COPD type: unspecified COPD Elevated troponin R77.8 Sinusitis J32.9 Mastoiditis H70.90 Pulmonary nodules R91.8 Acute on chronic respiratory failure with hypoxia and hypercapnia J96.21; J96.22 Acute kidney injury N17.9 Hypothermia T68.XXXA Acute metabolic encephalopathy G93.41 Hypomagnesemia E83.42 DVT prophylaxis Z29.9 Empty sella E23.6 Additional Codes Critical Care Time - Critical Care Time: Yes ([id number]) Time Spent (min) 90 Comment critical care time (1) COPD (chronic obstructive pulmonary disease) COPD type: unspecified COPD Qualified Code(s): J44.9 - Chronic obstructive pulmonary disease, unspecified
[2022-02-26 13:01] LABS: Base Excess VBG 1.8 mEq/L; Oxygen Saturation VBG 78.5 %; pH VBG 7.19 (7.36-7.41)
[2022-02-26 13:17] LABS: Albumin Level 3.3 gm/dl (3.4-5.0); Bilirubin Direct 0.1 mg/dl (0-0.2); Bilirubin,Total 0.3 mg/dl (0.2-1.0); Magnesium 1.5 mg/dl (1.7-2.4); Total Protein 5.6 gm/dl (6.0-8.3)
[2022-02-26] MEDS ORDERED: ACETAMINOPHEN 1000 MG/100 ML IV IV ONE (13:44)
[2022-02-26] MEDS: MAGNESIUM SULFATE / D5W 1 GM/100 ML BAG IV SCH ×2 (14:25→15:17)
--- NOTE | 2022-02-26 14:31 | XRay Report ---
XR chest 1V portable HISTORY: right-sided rales; eval for pneumonia COMPARISON: Chest 02/22/2022. FINDINGS: Rotated study. The heart remains mildly enlarged. Trace bilateral pleural effusions. No pne umothorax. No focal lung consolidations to suggest pneumonia. No evidence for pulmonary edema. Left subclavian P ort-A-Cath runs at the proximal SVC. This remains unchanged. IMPRESSION: Rotated study. Stable mild cardiomegaly with trace bilateral pleural effusions. ACT 112: Negative or not required by law. Electronically signed by: Homar Scott M.D. 02/26/2022 2:28 PM
[2022-02-26] MEDS: SODIUM CHLORIDE 0.9% 1000ML 1,000 ML IV SCH (15:18)
[2022-02-26 15:28] LABS: Base Excess VBG 0.5 mEq/L; pH VBG 7.22 (7.36-7.41)
[2022-02-26 18:27] LABS: Base Excess VBG 0.5 mEq/L; Oxygen Saturation VBG 95.8 %; pH VBG 7.21 (7.36-7.41)
[2022-02-26 18:36] LABS: BUN Creatinine Ratio 34.2 (10-20); Calcium 10.1 mg/dl (8.5-10.1); Creatinine Clr Calc Pharmacy 28.4 ml/min; Est GFR (African American) 30.5 ml/min; Est GFR (Non-African American) 26.3 ml/min; Potassium 3.8 mmol/L (3.5-5.1)
[2022-02-26] MEDS ORDERED: SODIUM CHLORIDE 0.9% 1000ML 1,000 ML IV ONE (19:44)
[2022-02-26] MEDS ORDERED: DAPTOmycin 350 MG in SYRINGE 0 ML IV SCH (20:00)
[2022-02-26 20:09] LABS: Appearance Urine Cloudy (Clear); Bacteria Urine Automated Negative (Negative); Bilirubin Urine Negative (Negative); Blood Urine 2+ (Negative); Color Urine Dark Yellow; Epithelial Cell Urine Auto >30 /lpf (0-5); Glucose Urine UA Negative (Negative); Ketones Urine 1+ (Negative); Leukocyte Esterase Urine Trace (Negative); Nitrite Urine Negative (Negative); Protein Urine 2+ (Negative); Specific Gravity Urine 1.023 (1.000-1.030); Urobilinogen Urine Negative (Negative)
[2022-02-26 20:35] LABS: RBC Urine Automated >30 /hpf (0-4)
[2022-02-26 20:38] LABS: Calcium Oxalate Crystals Urine Present (None Prsent)
[2022-02-26 21:26] LABS: Base Excess ABG -0.7 mEq/L (-9-1.8); HCO3 ABG 29 mmol/L (19-24); Oxygen Saturation ABG 98.4 % (90-95); PCO2 ABG 78 mmHg (35-46); PO2 ABG 143 mmHg (80-95)
[2022-02-26 21:31] LABS: Allen Test Pos (Pos)
[2022-02-26 21:32] LABS: pH ABG 7.19 (7.35-7.45)
[2022-02-26] MEDS: ALBUTEROL 0.083% NEBU SOLN 3 ML VIAL INH PRN (21:50)
[2022-02-26 22:08] LABS: Thyroid Stimulating Hormone 0.626 uIu/ml (0.300-4.500)
[2022-02-26 22:10] LABS: T4 Free Thyroxine 0.7 ng/dl (0.61-1.60)
--- NOTE | 2022-02-26 22:36 | Critical Care Consultation ---
Date of Consultation February 26, 2022 Assessment & Plan (1) Admitted to intensive care unit: Reason Critically Ill: 66-year-old female with recurrent acute on chronic hypoxemic respiratory failure with hypercapnia requiring close monitoring and possible need for reintubation. NEURO - * CAM ICU: POSITIVE * Altered mental status: * On review of chart, the patient has been pleasantly confused throughout her stay, however her current mental status has worsened. * Likely with acute change secondary to degree of CO2 narcosis. * Continue to monitor for improvement with correction of underlying conditions. * Patient has had extensive work-up including MRI, LP, and CT during this admission. * Consider repeat CT if she does not show improvement while on BiPAP, however I do not feel that this is imperative or necessary immediately. * Seizure activity: * Continue with ongoing care as previously outlined CARDIAC/VASCULAR - * Hypertension: * Continue current p.o. medications. IV supplementation if needed. * Monitor on telemetry. RESPIRATORY - * Acute on chronic hypoxemic respiratory failure with hypercapnia: * It is imperative that the patient wears her BiPAP for sleep. I have personally admitted this patient on 3 subsequent occasions and each time, the patient has had a degree of noncompliance with her BiPAP. She is now on BiPAP for the last few days. At this point, I am concerned the patient is near end-stage with her COPD and will require BiPAP intermittently throughout the day as well as with sleeping at all times at night. * We will adjust her BiPAP settings and obtain serial ABGs. * Low threshold for intubation if patient does not show improvement throughout the night. * Continue with nebulizer/treatments as previously ordered. GI/NUTRITION - * N.p.o. while on BiPAP. RENAL/LYTES - * GERALD: * Of uncertain etiology at this point. * Continue with IV fluids for now. * IVF: NSS@150 mL/h - * Degroot in place - Strict I&Os. ENDO - * DMII * BSGs per unit protocol. ISS --> gtt per unit policy. HEME - * Stable H&H ID - * Currently receiving antibiotics for ?? sinusitis. LINES/IV ACCESS - * PIVs x2 * LEFT Subclavian CVL * Degroot DVT PROPHYLAXIS - * Heparin * SCDs I have personally spent 45 minutes of critical care time in the direct management of this patient. This is a life/limb threatening event. This includes time spent evaluating patient, direct bedside care, chart review, placing orders, interpretation of diagnostic studies, discussion with consultants, patient, and family members, as well as other required patient management activities. This time is exclusive of all separately billable procedures, and teaching time and separate from and in addition to any other critical care service time. Thank you for allowing us to participate in the care of this patient. Please refer to my attending physician's documentation for any further recommendations. (2) Acute on chronic respiratory failure with hypoxia and hypercapnia: (3) Acute metabolic encephalopathy: History of Present Illness Attending Physician: Tam Gibbons History of Present Illness Patient is a 66-year-old female with a significant past medical history of chronic hypoxic respiratory failure who was dependent on 4 to 6 L chronically, COPD, lymphedema, hypertension, CKD 3, and obesity. Patient was admitted to this institution on 02/20 with respiratory failure and CO2 narcosis with acute COPD exacerbation as well as seizure-like activity. The patient was intubated and successfully liberated from the ventilator. During her evaluation, work-up was extensive including LP, CT, MRI, EEG, etc. Patient has apparently been worsening from mental status standpoint and VBG's were obtained today which demonstrated CO2 retention. She was placed on BiPAP without improvement in symptoms. It was felt best patient brought to the ICU for ongoing management. Upon evaluation in the ICU, the patient is somnolent, but does awake with verbal stimuli. BiPAP settings were adjusted to add increasing inspiratory pressure with a larger pressure gradient. Ventilating well at this point. Endorses no pain at this time. Allergies Allergy/AdvReac Type Severity Reaction Status Date / Time codeine AdvReac Mild SHAKING Verified 01/07/22 13:18 oxycodone AdvReac Unknown rash/shakes Verified 01/07/22 13:18 Home Medications Medication Instructions Recorded Confirmed Type carvedilol 6.25 mg tablet 6.25 mg PO BID #30 tab 11/06/20 01/07/22 Rx folic acid 400 mcg tablet 400 mcg PO QAM #30 tab 11/06/20 01/07/22 Rx aspirin 81 mg tablet,delayed 81 mg PO DAILY 12/01/20 01/07/22 History release metformin 1,000 mg tablet 1,000 mg PO BID #180 tab 09/27/21 01/07/22 Rx pravastatin 80 mg tablet 80 mg PO DAILY #90 tab 09/30/21 01/07/22 Rx docusate sodium 100 mg capsule 100 mg PO BID #180 cap 10/05/21 01/07/22 Rx miconazole nitrate 2 % topical 1 spray TOPICAL BID PRN 10/27/21 01/07/22 History spray powder polyethylene glycol 3350 17 17 g PO DAILY PRN 10/27/21 01/07/22 History gram/dose oral powder (Miralax) sennosides 8.6 mg tablet 8.6 - 17.2 mg PO HS 10/27/21 01/07/22 History simethicone 80 mg chewable tablet 80 mg PO DIRECTED PRN 10/27/21 01/07/22 History fluticasone propionate 50 2 spray INTRANASAL DAILY PRN #15.8 11/08/21 01/07/22 Rx mcg/actuation nasal ml spray,suspension (Flonase Allergy Relief) ipratropium bromide 0.02 % 2.5 ml INHALATION QID #187.5 ml 11/18/21 01/07/22 Rx solution for inhalation albuterol sulfate 2.5 mg INHALATION Q4H PRN #300 ml 12/03/21 01/07/22 Rx budesonide 0.5 mg/2 mL suspension 0.5 mg INHALATION BID #120 ml 12/03/21 01/07/22 Rx for nebulization pantoprazole 40 mg tablet,delayed 40 mg PO DAILY #90 tab 12/03/21 01/07/22 Rx release glycopyrrolate 9 mcg-formoterol 2 puff INHALATION BID #10.7 g 12/06/21 01/07/22 Rx 4.8 mcg HFA aerosol inhaler (Bevespi Aerosphere) loratadine 10 mg tablet (Claritin) 10 mg PO DAILY #30 tab 12/29/21 01/07/22 Rx tramadol 50 mg tablet 50 mg PO TID PRN #90 tab 01/17/22 Rx albuterol sulfate 90 mcg/actuation 2 inh INH QID PRN #8.5 g 01/26/22 Rx aerosol inhaler (Ventolin HFA) baclofen 10 mg tablet 10 mg PO TID PRN #90 tab 02/09/22 Rx Patient History Medical History Acute and chronic respiratory failure with hypoxia (10/2021) Acute respiratory failure with hypercapnia Anemia Chronic back pain Chronic respiratory failure Chronic venous insufficiency Colonic dysmotility Complicated UTI (urinary tract infection) COVID-19 Hypercapnic respiratory failure Hypertension Hypertensive urgency Ileus Lymphedema Osteoporosis Pulmonary nodules Vitamin D deficiency Surgical History History of cholecystectomy Hx of umbilical hernia repair Family History Sister Colorectal cancer Breast cancer Denies family history of Ovarian cancer Prostate cancer Myocardial infarction Social History Smoking Status: Current every day smoker Tobacco Type: Cigarettes Age Started Using Tobacco: 17; Age Quit Using Tobacco: 49; packs per day: 2; Cigarettes Per Day: 2 ppd quit 15 yrs ago; Second Hand Exposure: No; Hx Alcohol Use: No Hx Substance Use: No Preferred Language: Cameroonian Communication Ability: Unable Visual Impairment: Limited Hearing Ability: Normal Child Daycare Worker Required: No Beliefs That Will Affect Care: None marital status: Current Living Situation: Family Current Living Situation Comment: Lives with son current occupational status: retired How many Children do You have: 1 Feels Safe at Home: Yes Childhood Exposure to Second-Hand Smoke: No caffeine: Yes (coffee x 1 per day Iced tea x 1 glass per day.) during the past year weight has: remained stable Dental Care, Regularly: No Physical Activity Frequency: Does not Exercise Seatbelt Use: never Sunscreen Use: No Assistive Devices: Oxygen - Continuous and Walker Review of Systems Review of Systems: Unobtainable due to cognitive status Physical Exam Physical Exam: VITAL SIGNS - Vital signs and nursing notes were reviewed. GENERAL - 66-year-old female appearing her stated age who is somnolent but arousable. HEAD - NC/AT. EYES - PERRL with EOMI bilaterally. Sclera anicteric. EARS - No deformities of external structures noted on gross examination bilaterally. NOSE - Midline and without cyanosis. No epistaxis or purulent drainage noted. MOUTH/OROPHARYNX - Without perioral cyanosis. Buccal mucosa pink and dry. NECK - Neck with FROM. Supple to palpation. LUNGS - Chest wall symmetric without accessory muscle use, intercostals retractions, or central cyanosis. Normal vesicular breath sounds CTA B/L. No wheezes, rales, or rhonchi appreciated. CARDIAC - RRR with S1/S2. No murmur, rubs, or gallops appreciated. Mild reproducible tenderness to palpation appreciated over the anterior chest wall. ABDOMEN - Abdominal contour obese without pulsations or visible masses. BS normo active all four quadrants. No tenderness, palpable masses, hepatosplenomegaly, or ascites noted. EXTREMITIES - No clubbing or peripheral cyanosis. Moderate lower extremity edema noted. +3/5 radial and dorsalis pedis pulses palpated throughout. NEUROLOGIC - No focal neurological deficits noted. Able to move all 4 extremities independently. Somnolent, but arouses to stimuli. Results & Data Results & Data ([facility]) Vital Signs (Past 12 Hours) Vital Signs Temp Pulse Pulse Pulse Resp BP Pulse Ox 02/26/22 21:52 22 95 02/26/22 21:47 36.3 C L 67 20 120/75 99 02/26/22 19:36 34.6 C L 02/26/22 19:22 66 20 98/62 L 99 02/26/22 19:04 56 L 56 L 18 98 02/26/22 16:05 35.6 C L 56 L 20 134/71 96 02/26/22 16:00 85 02/26/22 15:30 53 L 17 80 L 02/26/22 12:54 85 17 93 02/26/22 12:50 35.7 C L 02/26/22 12:49 35.7 C L 02/26/22 11:08 36.5 C 58 L 18 119/51 L 99 Coding Level of Care Code Critical Care 1st 30-74 mins Diagnoses Admitted to intensive care unit Z78.9 Acute on chronic respiratory failure with hypoxia and hypercapnia J96.21; J96.22 Acute metabolic encephalopathy G93.41 Time Spent (min) 45
--- NOTE | 2022-02-26 22:45 | Communication Note ---
Date of Service: February 26, [address] Gibbons earlier in the evening to review days events. Ms. Landeros has a history of chronic hypercarbic respiratory failure requiring BiPAP at home qHS and has been admitted for [id number] respiratory failure - previously requiring intubation and stay in ICU during this admission - as well as sepsis. Throughout today, received report that her mentation has been deteriorating and she has been more somnolent. Informed by patient's nursing team that her ABG recheck revealed slight worsening in her gases despite ongoing and escalating BiPAP titrating. 7. / / 143 / 29. At the bedside, vitals noted - BP ~120/80, HR 70s, SpO2 95% on FiO2 40. She appears somnolent and diaphoretic, but well perfused. She awakens to tactile, but not verbal, stimuli. She is able to follow commands intermittently - such as squeezing hands, moving feet, when requested. Cardiac - NRRR, +s1/s2 w/o m/r/g. Respiratory - BiPAP ongoing; diminished lung sounds throughout with scattered rhonchi. Abdomen - mildly distended, no wincing on palpation. Extremities - trace peripheral edema appreciated in the lower extremities. Given her persistent and unimproved respiratory acidosis despite ongoing BiPAP therapy throughout the day and continued somnolence/possible need for airway protection, do have concern that she may be trending towards need for re- intubation and mechanical ventilation. She is otherwise hemodynamically stable at this time. CXR ordered. Discussed case with on-call accredited pharmacy technician, Pedro Worthington, who will transfer patient to ICU for further respiratory monitoring. Continue BiPAP at this time. Continue ongoing w/u for metabolic encephalopathy. If no OGT/NGT placed, may require IV substitution for her antiepileptic medications. Resident Activity Tracking Resident Involvement: Resident Care Provided Care Provided: Adult [facility] Medicine
[2022-02-26] MEDS: SENNOSIDES 8.8 MG/5 ML UDC PO SCH (22:54)
[2022-02-26 23:23] LABS: Basophils # (auto) 0.02 K/uL (0-0.2); Basophils % (auto) 0.2 %; Eosinophils % (auto) 0.8 %; Hematocrit (blood only) 35.7 % (37-47); Hemoglobin 11.2 g/dL (12.0-16.0); Immature Granulocytes # (auto) 0.07 K/uL (0.00-0.02); Immature Granulocytes % (auto) 0.6 %; Lymphocytes # (auto) 1.83 K/uL (1.2-3.4); Lymphocytes % (auto) 14.4 %; Mean Corpuscular Hemoglobin 27.9 pg (25-34); Mean Corpuscular Hgb Conc 31.4 g/dL (32-36); Mean Platelet Volume 10.9 fL (7.4-10.4); Monocytes # (auto) 0.89 K/uL (0.11-0.59); Neutrophils # (auto) 9.81 K/uL (1.4-6.5); Nucleated RBC # (auto) 0.03 K/uL (0-0); Nucleated RBC % (auto) 0.2 %; Platelet Count 154 K/uL (130-400); RDW Coefficient of Variation 14.3 % (11.5-14.5); RDW Standard Deviation 46.4 fL (36.4-46.3); Red Blood Count 4.01 M/uL (4.2-5.4); White Blood Count 12.72 K/uL (4.8-10.8)
[2022-02-26 23:33] LABS: Calcium 9.5 mg/dl (8.5-10.1); Creatinine Clr Calc Pharmacy 28.2 ml/min; Est GFR (African American) 30.3 ml/min; Est GFR (Non-African American) 26.1 ml/min; Magnesium 2.1 mg/dl (1.7-2.4); Phosphorus 4.4 mg/dl (2.5-4.9); Potassium 3.8 mmol/L (3.5-5.1)
[2022-02-26 23:40] LABS: Troponin I High Sensitivity 12.8 pg/ml (0-14)
[2022-02-26 23:44] LABS: iSTAT Allen Test Pass; iSTAT Art Bld Gas pCO2 Correct 64 mmHg (35-46); iSTAT Art Bld Gas pH Corrected 7.252 (7.35-7.45); iSTAT Arterial Blood Gas HCO3 28 meg/L (19-24); iSTAT Arterial Blood Gas pCO2 66 mmHg (35-46); iSTAT Arterial Blood Gas pH 7.25 (7.35-7.45); iSTAT Arterial Blood Gas pO2 54 mmHg (80-95); iSTAT Arterial Blood Gas pO2 C 53; iSTAT Carbon Dioxide 30 mmol/L (24-31); iSTAT FiO2 30 %; iSTAT Hematocrit 31 % (37-47); iSTAT Hemoglobin 10.5 g/dl (12.0-16.0); iSTAT Potassium 3.7 mmol/L (3.3-5.0); iSTAT Site R Radial; iSTAT Sodium 139 mmol/L (135-144)
[2022-02-27] MEDS ORDERED: SODIUM CHLORIDE 0.9% 1000ML 250 ML IV ONE (00:37)
[2022-02-27] MEDS: CHECK CLONIDINE PATCH PLACEMENT SCH ×3 (00:54→16:14)
[2022-02-27] MEDS: INSULIN ASPART PER UNIT SC SCH ×4 (00:55→18:32)
[2022-02-27] MEDS: SODIUM CHLORIDE 0.9% 1000ML 1,000 ML IV SCH ×2 (01:13→06:30)
[2022-02-27] MEDS: HEPARIN SOD 5,000 UNIT/0.5 ML VIAL SQ SCH ×3 (05:42→22:34)
[2022-02-27 06:07] LABS: iSTAT Allen Test Pass; iSTAT Art Bld Gas pCO2 Correct 67 mmHg (35-46); iSTAT Art Bld Gas pH Corrected 7.207 (7.35-7.45); iSTAT Arterial Blood Gas HCO3 27 meg/L (19-24); iSTAT Arterial Blood Gas pCO2 69 mmHg (35-46); iSTAT Arterial Blood Gas pO2 97 mmHg (80-95); iSTAT Arterial Blood Gas pO2 C 93; iSTAT Carbon Dioxide 29 mmol/L (24-31); iSTAT FiO2 40 %; iSTAT Hematocrit 30 % (37-47); iSTAT Hemoglobin 10.2 g/dl (12.0-16.0); iSTAT Potassium 3.7 mmol/L (3.3-5.0); iSTAT Site R Radial; iSTAT Sodium 140 mmol/L (135-144)
[2022-02-27 06:15] LABS: Basophils # (auto) 0.01 K/uL (0-0.2); Basophils % (auto) 0.1 %; Eosinophils # (auto) 0.08 K/uL (0-0.5); Eosinophils % (auto) 0.6 %; Hematocrit (blood only) 32.9 % (37-47); Hemoglobin 10.4 g/dL (12.0-16.0); Immature Granulocytes # (auto) 0.05 K/uL (0.00-0.02); Immature Granulocytes % (auto) 0.4 %; Lymphocytes % (auto) 12.8 %; Mean Corpuscular Hemoglobin 28.2 pg (25-34); Mean Corpuscular Hgb Conc 31.6 g/dL (32-36); Mean Corpuscular Volume 89.2 fL (80-100); Mean Platelet Volume 10.8 fL (7.4-10.4); Monocytes # (auto) 1.07 K/uL (0.11-0.59); Monocytes % (auto) 8.1 %; Neutrophils # (auto) 10.32 K/uL (1.4-6.5); Nucleated RBC # (auto) 0.05 K/uL (0-0); Nucleated RBC % (auto) 0.4 %; Platelet Count 137 K/uL (130-400); RDW Coefficient of Variation 14.1 % (11.5-14.5); RDW Standard Deviation 46.3 fL (36.4-46.3); Red Blood Count 3.69 M/uL (4.2-5.4); White Blood Count 13.23 K/uL (4.8-10.8)
[2022-02-27] MEDS: CEFEPIME 2,000 MG in SYRINGE 0 ML IV SCH (06:26)
[2022-02-27] MEDS: DOXYCYCLINE HYCLATE 100 MG in DEXTROSE 5% 100 ML IV SCH (06:26)
[2022-02-27 06:36] LABS: Calcium 9.2 mg/dl (8.5-10.1); Est GFR (African American) 29.7 ml/min; Est GFR (Non-African American) 25.7 ml/min; Phosphorus 4.2 mg/dl (2.5-4.9); Potassium 3.7 mmol/L (3.5-5.1)
[2022-02-27] MEDS: BUDESONIDE 0.5 MG/2 ML VIAL (PULMICORT) INH SCH (07:40)
--- NOTE | 2022-02-27 07:55 | XRay Report ---
XR chest 1V portable HISTORY: increasing pedal edema, respiratory distress COMPARISON: Chest 02/26/2022. FINDINGS: No pneumothorax. Old, healed right-sided rib fractures. Mild cardiac megaly persists. There is mild central pulmonary vascular congestion without overt edema. Small right pleural effusion righ t patchy basilar densities are noted. Left subclavian Port-A-Cath terminates at the proximal SVC. IMPRESSION: 1. Cardiomegaly with mild congestive change. 2. Small right pleural effusion and a patchy right basilar density. ACT 112: Negative or not required by law. Electronically signed by: Homar Scott M.D. 02/27/2022 7:54 AM
[2022-02-27] MEDS: PANTOprazole 40 MG TAB PO SCH (09:29)
[2022-02-27] MEDS: METOPROLOL TARTRATE 25 MG TAB PO SCH (09:30)
[2022-02-27] MEDS: hydrALAZINE TAB 50 MG TAB PO SCH ×3 (09:30→22:28)
[2022-02-27] MEDS: DIVALPROEX SODIUM SPRINKLE/DEL-REL 125 MG CAP PO SCH (09:30)
--- NOTE | 2022-02-27 09:32 | Critical Care Progress Note ---
Date of Service February 27, 2022 Assessment & Plan (1) Admitted to intensive care unit: Plan: Reason Critically Ill: 66-year-old female with recurrent acute on chronic hypoxemic respiratory failure with hypercapnia requiring close monitoring and possible need for reintubation. 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 medications. IV supplementation if needed. Also on clonidine patch. * Monitor on telemetry. RESPIRATORY - * Acute on chronic hypoxemic respiratory failure with hypercapnia: Poor compliance. Low threshold for intubation. If she is intubated, she would li art need to be trached. Chest x-ray personally reviewed without acute infiltrate. Start budesonide and Performist BID for history of COPD GI/NUTRITION - * N.p.o. while on BiPAP. RENAL/LYTES - * GERALD: * Likely from poor p.o. intake. * Continue with IV fluids for now. * IVF: Discontinue normal saline at 150 an hour and switch to Normosol 80 cc an hour. - * Degroot in place - Strict I&Os. ENDO - * DMII * BSGs per unit protocol. ISS --> gtt per unit policy. HEME - * Stable H&H ID - * Repeat blood cultures pending. Lumbar puncture from earlier in the hospitalization negative. Prior sputum and blood cultures negative. Repeat urine culture pending. Currently on daptomycin, doxycycline and cefepime. Pro-[place] negative. We will discontinue all antibiotics unless she spikes a fever, has positive blood cultures or has other signs of infection. LINES/IV ACCESS - * PIVs x2 * LEFT Subclavian CVL * Degroot DVT PROPHYLAXIS - * Heparin * SCDs I have personally spent 36 minutes of critical care time in the direct management of this patient. This is a life/limb threatening event. This includes time spent evaluating patient, direct bedside care, chart review, placing orders, interpretation of diagnostic studies, discussion with consultants, patient, and family members, as well as other required patient management activities. This time is exclusive of all separately billable procedures, and teaching time and separate from and in addition to any other critical care service time. Thank you for allowing us to participate in the care of this patient. Please refer to my attending physician's documentation for any further recommendations. (2) Acute on chronic respiratory failure with hypoxia and hypercapnia: (3) Acute metabolic encephalopathy: Admission and Anticipated Discharge Date Admission Date: February 20, 2022 Subjective Patient seen and examined this morning. She does awake and follows intermittent commands. She is currently on BiPAP. Does not appear to be in respiratory distress at this time. Review of Systems Review of Systems: Unobtainable due to reduced consciousness Physical Exam Eyes: PERRL, conjunctivae normal, anicteric sclerae Neck: trachea midline, no thyromegaly Respiratory: Coarse breath sounds bilaterally. No wheezes. Cardiovascular: RRR, no murmur, no edema Gastrointestinal (Abdomen): normal bowel sounds, soft, nontender, no hepatospl enomegaly Musculoskeletal: no cyanosis or clubbing, extremities motor strength 5/5 Neurologic: PERRL, EOMI, accommodation nl, no face palsy, no dysarthria Psychiatric: A+Ox3, euthymic affect Results & Data Results & Data ([facility]) Vital Signs (Past 12 Hours) Vital Signs Temp Pulse Pulse Resp BP BP Pulse Ox 02/27/22 07:40 76 76 26 H 100 02/27/22 06:00 36.4 C L 74 20 139/58 L 100 02/27/22 05:30 36.4 C L 75 24 98 02/27/22 05:00 36.5 C 72 24 124/65 98 02/27/22 04:34 36.6 C 74 18 112/56 L 98 02/27/22 04:30 36.6 C 73 20 98 02/27/22 04:00 36.7 C 77 22 112/56 L 98 02/27/22 03:30 36.7 C 73 24 98 02/27/22 03:00 36.7 C 73 19 146/61 H 97 02/27/22 02:37 72 24 96 02/27/22 02:30 36.7 C 72 23 96 02/27/22 02:00 36.8 C 71 24 136/65 97 02/27/22 01:30 36.7 C 71 23 98 02/27/22 01:00 36.8 C 75 15 130/72 97 02/27/22 00:30 36.7 C 72 20 97 02/27/22 00:00 36.6 C 71 24 125/82 96 02/26/22 23:30 36.5 C 68 24 91 02/26/22 23:00 36.4 C L 70 24 118/76 92 02/26/22 22:43 36.4 C L 68 29 H 100/69 94 02/26/22 22:42 36.4 C L 69 25 H 86/43 L 93 02/26/22 22:40 36.4 C L 69 24 100/69 93 02/26/22 22:20 67 24 98 02/26/22 22:00 68 24 02/26/22 21:52 22 95 02/26/22 21:47 36.3 C L 67 20 120/75 99 Coding Level of Care Code Critical Care 1st 30-74 mins Diagnoses Admitted to intensive care unit Z78.9 Acute on chronic respiratory failure with hypoxia and hypercapnia J96.21; J96.22 Acute metabolic encephalopathy G93.41 Time Spent (min) 36
[2022-02-27] MEDS ORDERED: POTASSIUM CHLORIDE / WTR 20 MEQ/100 ML PLCT IV ONE (10:00)
[2022-02-27] MEDS: NORMOSOL-R 1,000 ML IV SCH ×2 (10:54→22:34)
[2022-02-27] MEDS: FORMOTEROL 20 MCG/2 ML VIAL NEB SCH ×2 (11:36→20:50)
[2022-02-27 13:27] LABS: iSTAT Allen Test Pass; iSTAT Arterial Blood Gas HCO3 24 meg/L (19-24); iSTAT Arterial Blood Gas pCO2 59 mmHg (35-46); iSTAT Arterial Blood Gas pH 7.23 (7.35-7.45); iSTAT Arterial Blood Gas pO2 65 mmHg (80-95); iSTAT Carbon Dioxide 26 mmol/L (24-31); iSTAT FiO2 30 %; iSTAT Site R Radial
--- NOTE | 2022-02-27 14:33 | CT Scan Report ---
CT SCAN OF THE ABDOMEN AND PELVIS WITHOUT IV CONTRAST CLINICAL HISTORY: Acute renal insufficiency. COMPARISON STUDY: Abdominal CT dated 10/03/2020. TECHNIQUE: Unenhanced CT scan of the abdomen and pelvis is performed from the lung bases to the proxi mal femora. Images are reviewed in the axial, sagittal, and coronal planes. IV contrast was not admin istered for this examination. Note that the examination is suboptimal without oral and IV contrast. A dose lowering technique was utilized adhering to the principles of ALARA. The examination is degrade d by motion artifact, as well as by streak artifact from the arms which could not be elevated above t he abdomen. CT DOSE: 1037.44 mGy.cm FINDINGS: Lung bases: The heart is normal in size and without pericardial effusion. The lung bases are clear no ting bibasilar scarring/atelectasis. There is a small hiatal hernia. Liver: Evaluation of the liver is significantly degraded by streak artifact. The unenhanced liver is grossly normal in size, contour, and attenuation. There is no intrahepatic biliary ductal dilatation. Gallbladder: Surgically absent noting clips in the gallbladder fossa. Spleen: Normal in size and attenuation. Pancreas: The unenhanced pancreas is mildly atrophic and grossly unremarkable. Adrenal glands: Unremarkable. Kidneys: The unenhanced kidneys demonstrate cortical atrophy and are without hydronephrosis. Cortical scarring is noted in the left upper pole. No renal calculi are identified. There is no evidence of c ontour deforming mass lesion. Abdominal vasculature: The abdominal aorta is normal in course and caliber noting advanced atheroscle rotic calcification. Bowel: A rectal temperature probe is in place. A long segment of narrowing is again seen within the s igmoid colon on image #302. This measures approximately 10 cm in length and is unchanged from prior e xamination. The upstream colon is only mildly distended with stool. The small bowel loops are normal in caliber. The appendix is well-visualized and normal. Peritoneum: There is no intraperitoneal free air or abdominal ascites. Lymphadenopathy: None. Pelvic viscera: The bladder is decompressed around a Degroot catheter. There is intraluminal gas and dominguez rrounding inflammation. The uterus and adnexa are normal as imaged. Skeletal structures: The skeletal structures are osteopenic. No lytic or blastic lesions are seen. IMPRESSION: 1. Streak and motion compromised examination 2. Again seen is a long segment of colonic narrowing involving the sigmoid which could represent stri cture or possibly adhesions. There is no evidence of mass lesion, and no evidence of upstream colonic obstruction at this time. 3. The kidneys demonstrate cortical atrophy and are without hydronephrosis. 4. The bladder is decompressed around a Degroot catheter and there is surrounding inflammation. Correla te with urinalysis. 5. Additional findings as above. ACT 112: Negative or not required by law. Electronically signed by: Lexa Mcgraw M.D. 02/27/2022 2:31 PM
[2022-02-27] MEDS ORDERED: MIDAZOLAM HCL 5 MG/ML VIAL IV ONE (15:21)
[2022-02-27] MEDS ORDERED: fentaNYL citrate 100 MCG/2 ML VIAL IV ONE (15:21)
[2022-02-27] MEDS ORDERED: SUCCINYLCHOLINE CHLORIDE 20 MG/ML 10 ML VIAL IV ONE (15:21)
[2022-02-27] MEDS ORDERED: ETOMIDATE 2 MG/ML 20 ML VIAL IV ONE (15:21)
[2022-02-27] MEDS: METOPROLOL TARTRATE 1 MG/ML VIAL IV SCH (18:33)
[2022-02-27 18:49] LABS: iSTAT Allen Test Pass; iSTAT Arterial Blood Gas HCO3 24 meg/L (19-24); iSTAT Arterial Blood Gas pCO2 57 mmHg (35-46); iSTAT Arterial Blood Gas pH 7.23 (7.35-7.45); iSTAT Arterial Blood Gas pO2 71 mmHg (80-95); iSTAT Carbon Dioxide 25 mmol/L (24-31); iSTAT FiO2 50 %; iSTAT Site R Radial
--- NOTE | 2022-02-27 19:15 | Hospitalist Progress Note ---
Date of Service February 27, 2022 Assessment & Plan (1) Acute on chronic respiratory failure with hypoxia and hypercapnia: Plan: Recurrent, severe acute respiratory acidosis/elevated pCO2 on 02/27 with resumption of BIPAP. Has been on BIPAP since that time without any significant improvement in her respiratory status. This is in the setting of chronic respiratory acidosis. Baseline pCO2 is ~60. Etiology of decompensation uncertain. Thus far we have not found any new infectious cause. She is on baseline O2 at home, ~4-6 liters. Can't rule out a new metabolic disturbance contributing to the current clinical picture. Cortisol, TSH, FT4, procal, lactates - all negative/normal. Most recent chest imaging without new infiltrates. Ultimately may need intubation/mech ventilation again. Appreciate ICU support. (2) Hypothermia: Plan: 02/27 with institution of warming blanket. Temps normalized w/ such. Adrenal crisis ruled out. TFTs wnl. Sepsis suspected but lactates, procal, etc wnl. Blood/urine cx's pending. Hypothermia occurred in the setting of recurrent hypercapnea. Hypothermia also occurred in the setting of broad-spectrum IV abx (cefepime/doxy). Daptomycin added yesterday for MRSA coverage. Follow cultures. (3) Acute metabolic encephalopathy: Plan: 2nd to severe respiratory acidosis & hypothermia. Ongoing despite supportive care. Can't rule out toxic effects from clonidine, tramadol, etc but unlikely has mental status has not improved with holding both meds. Consider repeat head CT. MRI brain from earlier in the stay noted. (4) Empty sella: Plan: Seen on MRI brain earlier this admission. In light of recurrent sepsis-like picture, resp failure, low BP, etc -- checked TSH, FT4, and cortisol - all wnl. (5) Acute kidney injury: Plan: Likely ATN from prerenal causes (poor PO intake over the last few days, etc). Can't rule out contrast nephropathy from CT contrast. Can't rule out obstruction - although CT abd/pelvis today shows no evidence of such (calcium oxylate crystals on u/a, but no stones seen on CT today). Cont supportive care and daily BMP. (6) Hypomagnesemia: Plan: repleted resolved (7) Seizure-like activity: Plan: Reported and witnessed by EMS just prior to admission. EEG without seizure activity. MRI brain negative. Exact etiology uncertain. Seen by neurology earlier this stay - depakote advised. Due to NPO status will change depakote to IV valproic acid. (8) Sepsis: Plan: Treated for such early in the stay. Thought to be have maxillary sinusitis and mastoiditis (although no clinical evidence of latter on exam). Meningitis ruled out early in stay s/p normal LP. Has been on cefepime + doxycycline since earlier in the stay - continue both. Added daptomycin for MRSA/enterococcal coverage empirically yesterday. Procal, lactate, cortisol all wnl. CXR yesterday neg for pneumonia. Blood and urine cx's pending. (9) Chronic kidney disease, stage 3a: Plan: baseline CrCl 50-60 now with GERALD BMP in am (10) Obesity: Plan: BMI 29 (11) Hypertension: Plan: IV metoprolol 5mg q6h. (12) COPD (chronic obstructive pulmonary disease): Plan: Does not appear to be in exacerbation at this time (no wheezing, etc) but continues with acute resp acidosis. See above. (13) Elevated troponin: Plan: Peak HS trop was 187 earlier in stay -- likely 2nd to myocardial demand ischemia in setting of respiratory failure. (14) Sinusitis: Plan: Aggressively treated with broad-spectrum IV abx. (15) Mastoiditis: Plan: b/l - seen on MRI brain. clinically - no evidence of such - no inflammation/swelling/tenderness over either mastoid; ears symmetric; etc. follow. (16) Pulmonary nodules: Plan: Right lower lobe nodule seen on CT chest earlier in the stay. Follow-up CT chest 3 months. (17) DVT prophylaxis: Plan: heparin 5000 TID Plan: sonRuddy, extensively updated by phone this evening and yesterday Admission and Anticipated Discharge Date Admission Date: February 20, 2022 Subjective overnight events noted pt transferred to ICU due to refractory respiratory acidosis, lethargy, acute renal failure, etc during my visit patient would open her eyes to commands but was unable to answer questions or vocalize any complaints she followed basic commands remains on BIPAP plan of care d/w Dr Avalos - there is heavy concern she will require intubation with mech ventilation Review of Systems Review of Systems: Unobtainable due to cognitive status Physical Exam Physical Exam: gen - lethargic, opens eyes to her name being called but unable to answer questions; follows some basic commands albeit inconsistently; bipap in place mouth - MM dry eyes - PERRL neck - no JVD heart - RRR, s1 s2, no murmur lungs - decreased BS bases worse on right, no distress abd - soft, ?tenderness midline abdomen, BS+ ext - no edema, pulses 2+ b/l neuro - spontaneously moves all 4 limbs although moves the LUE on limited basis Results & Data Results & Data ([facility]) Vital Signs (Past 12 Hours) Vital Signs Temp Pulse Pulse Resp BP Pulse Ox 02/27/22 18:45 78 29 H 96 02/27/22 18:33 104 H 179/123 H 02/27/22 18:01 37.0 C 103 H 23 179/123 H 91 02/27/22 18:00 37.0 C 100 H 18 91 02/27/22 17:16 37.2 C 109 H 19 158/116 H 92 02/27/22 17:00 37.1 C 102 H 30 H 190/86 H 95 02/27/22 16:30 37.1 C 97 H 25 H 96 02/27/22 16:00 37.0 C 90 27 H 168/94 H 96 02/27/22 15:30 37.0 C 86 19 97 02/27/22 15:03 91 H 28 H 98 02/27/22 15:00 37.0 C 89 22 151/81 H 98 02/27/22 14:46 37.0 C 95 H 25 H 133/81 97 02/27/22 14:00 37.0 C 93 H 39 H 98 02/27/22 13:00 36.9 C 88 22 160/86 H 93 02/27/22 12:05 36.8 C 84 18 159/64 H 93 02/27/22 12:00 36.8 C 85 21 94 02/27/22 11:36 86 86 27 H 92 02/27/22 11:00 36.8 C 89 15 177/61 H 93 02/27/22 10:00 36.7 C 88 20 144/85 H 92 02/27/22 09:00 36.6 C 86 25 H 148/65 H 91 02/27/22 08:00 36.5 C 76 23 153/67 H 94 02/27/22 07:40 76 76 26 H 100 Laboratory Results Laboratory Results - last 24 hr 02/26/22 02/26/22 02/26/22 19:50 21:07 21:07 WBC RBC Hgb POC Hgb Hct POC Hct MCV MCH MCHC RDW Std Deviation RDW Coeff of Ana Plt Count MPV Immature Gran % (Auto) Neut % (Auto) Lymph % (Auto) Carbon % (Auto) Eos % (Auto) Baso % (Auto) Neut # (Auto) Lymph # (Auto) Carbon # (Auto) Eos # (Auto) Baso # (Auto) Immature Gran # (Auto) Absolute Nucleated RBC Nucleated RBC % (auto) Sample Site POC pH POC pCO2 POC pO2 POC HCO3 POC Total CO2 POC Base Excess ABG pH ABG pH (Temp Correct) ABG pCO2 ABG pCO2 (Temp Corrct ABG pO2 POC ABG pO2 at Pt Temp ABG HCO3 POC ABG O2 Sat ABG O2 Saturation ABG Base Excess Berto Test Barometric Pressure Oxygen Given O2 Delivery Device POC O2 Rate POC FiO2 IPAP POC Sodium Sodium POC Potassium Potassium Chloride Carbon Dioxide Anion Gap BUN Creatinine Est Cr Clr Drug Dosing Est GFR ( Amer) Est GFR (Non-Af Amer) BUN/Creatinine Ratio Glucose POC Glucose Lactate Calcium Phosphorus Magnesium Ammonia Troponin I High Sens Procalcitonin TSH 0.626 Free T4 0.70 Random Cortisol 22.54 Urine Color Dark Yellow Urine Appearance Cloudy A Urine pH 5.0 Ur Specific [place] 1.023 Urine Protein 2+ H Urine Glucose (UA) Negative Urine Ketones 1+ H Urine Blood 2+ H Urine Nitrite Negative Urine Bilirubin Negative Urine Urobilinogen Negative Ur Leukocyte Esterase Trace H Urine WBC (Auto) 10-30 H Urine RBC (Auto) >30 H U Hyaline Cast (Auto) 5-10 H U Epithel Cells (Auto) >30 H Urine Bacteria (Auto) Negative Ur Renal Epithelial Cell Not Reportable Calcium Oxalate Crystal Present A Urine Yeast Not Reportable 02/26/22 02/26/22 02/26/22 21:07 22:52 22:52 WBC 12.72 H RBC 4.01 L Hgb 11.2 L POC Hgb Hct 35.7 L POC Hct MCV 89.0 MCH 27.9 MCHC 31.4 L RDW Std Deviation 46.4 H RDW Coeff of Ana 14.3 Plt Count 154 MPV 10.9 H Immature Gran % (Auto) 0.6 Neut % (Auto) 77.0 Lymph % (Auto) 14.4 Carbon % (Auto) 7.0 Eos % (Auto) 0.8 Baso % (Auto) 0.2 Neut # (Auto) 9.81 H Lymph # (Auto) 1.83 Carbon # (Auto) 0.89 H Eos # (Auto) 0.10 Baso # (Auto) 0.02 Immature Gran # (Auto) 0.07 H Absolute Nucleated RBC 0.03 H Nucleated RBC % (auto) 0.2 Sample Site POC pH POC pCO2 POC pO2 POC HCO3 POC Total CO2 POC Base Excess ABG pH 7.19 L* ABG pH (Temp Correct) ABG pCO2 78 H ABG pCO2 (Temp Corrct ABG pO2 143 H POC ABG pO2 at Pt Temp ABG HCO3 29 H POC ABG O2 Sat ABG O2 Saturation 98.4 H ABG Base Excess -0.7 Berto Test Pos Barometric Pressure 730.2 Oxygen Given 30% O2 Delivery Device POC O2 Rate POC FiO2 IPAP POC Sodium Sodium 141 POC Potassium Potassium 3.8 Chloride 106 Carbon Dioxide 28 Anion Gap 7 BUN 66 H Creatinine 1.94 H Est Cr Clr Drug Dosing 28.2 Est GFR ( Amer) 30.3 Est GFR (Non-Af Amer) 26.1 BUN/Creatinine Ratio 34.0 H Glucose 101 H POC Glucose Lactate Calcium 9.5 Phosphorus 4.4 Magnesium 2.1 Ammonia Troponin I High Sens 12.8 D Procalcitonin TSH Free T4 Random Cortisol Urine Color Urine Appearance Urine pH Ur Specific [place] Urine Protein Urine Glucose (UA) Urine Ketones Urine Blood Urine Nitrite Urine Bilirubin Urine Urobilinogen Ur Leukocyte Esterase Urine WBC (Auto) Urine RBC (Auto) U Hyaline Cast (Auto) U Epithel Cells (Auto) Urine Bacteria (Auto) Ur Renal Epithelial Cell Calcium Oxalate Crystal Urine Yeast 02/26/22 02/26/22 02/26/22 22:52 22:52 22:52 WBC RBC Hgb POC Hgb Hct POC Hct MCV MCH MCHC RDW Std Deviation RDW Coeff of Ana Plt Count MPV Immature Gran % (Auto) Neut % (Auto) Lymph % (Auto) Carbon % (Auto) Eos % (Auto) Baso % (Auto) Neut # (Auto) Lymph # (Auto) Carbon # (Auto) Eos # (Auto) Baso # (Auto) Immature Gran # (Auto) Absolute Nucleated RBC Nucleated RBC % (auto) Sample Site POC pH POC pCO2 POC pO2 POC HCO3 POC Total CO2 POC Base Excess ABG pH ABG pH (Temp Correct) ABG pCO2 ABG pCO2 (Temp Corrct ABG pO2 POC ABG pO2 at Pt Temp ABG HCO3 POC ABG O2 Sat ABG O2 Saturation ABG Base Excess Berto Test Barometric Pressure Oxygen Given O2 Delivery Device POC O2 Rate POC FiO2 IPAP POC Sodium Sodium POC Potassium Potassium Chloride Carbon Dioxide Anion Gap BUN Creatinine Est Cr Clr Drug Dosing Est GFR ( Amer) Est GFR (Non-Af Amer) BUN/Creatinine Ratio Glucose POC Glucose Lactate 0.3 L Calcium Phosphorus Magnesium Ammonia 49.0 Troponin I High Sens Procalcitonin 0.05 TSH Free T4 Random Cortisol Urine Color Urine Appearance Urine pH Ur Specific [place] Urine Protein Urine Glucose (UA) Urine Ketones Urine Blood Urine Nitrite Urine Bilirubin Urine Urobilinogen Ur Leukocyte Esterase Urine WBC (Auto) Urine RBC (Auto) U Hyaline Cast (Auto) U Epithel Cells (Auto) Urine Bacteria (Auto) Ur Renal Epithelial Cell Calcium Oxalate Crystal Urine Yeast 02/26/22 02/26/22 02/27/22 22:58 23:32 05:37 WBC RBC Hgb POC Hgb 10.5 L Hct POC Hct 31 L MCV MCH MCHC RDW Std Deviation RDW Coeff of Ana Plt Count MPV Immature Gran % (Auto) Neut % (Auto) Lymph % (Auto) Carbon % (Auto) Eos % (Auto) Baso % (Auto) Neut # (Auto) Lymph # (Auto) Carbon # (Auto) Eos # (Auto) Baso # (Auto) Immature Gran # (Auto) Absolute Nucleated RBC Nucleated RBC % (auto) Sample Site R Radial POC pH 7.25 L POC pCO2 66 H POC pO2 54 L POC HCO3 28 H POC Total CO2 30 POC Base Excess 1.0 ABG pH ABG pH (Temp Correct) 7.252 L ABG pCO2 ABG pCO2 (Temp Corrct 64 H ABG pO2 POC ABG pO2 at Pt Temp 53 ABG HCO3 POC ABG O2 Sat 81.0 L ABG O2 Saturation ABG Base Excess Berto Test Pass Barometric Pressure Oxygen Given O2 Delivery Device BIPAP POC O2 Rate 24 POC FiO2 30 IPAP 20 POC Sodium 139 Sodium POC Potassium 3.7 Potassium Chloride Carbon Dioxide Anion Gap BUN Creatinine Est Cr Clr Drug Dosing Est GFR ( Amer) Est GFR (Non-Af Amer) BUN/Creatinine Ratio Glucose POC Glucose 108 H 106 H Lactate Calcium Phosphorus Magnesium Ammonia Troponin I High Sens Procalcitonin TSH Free T4 Random Cortisol Urine Color Urine Appearance Urine pH Ur Specific [place] Urine Protein Urine Glucose (UA) Urine Ketones Urine Blood Urine Nitrite Urine Bilirubin Urine Urobilinogen Ur Leukocyte Esterase Urine WBC (Auto) Urine RBC (Auto) U Hyaline Cast (Auto) U Epithel Cells (Auto) Urine Bacteria (Auto) Ur Renal Epithelial Cell Calcium Oxalate Crystal Urine Yeast 02/27/22 02/27/22 02/27/22 05:48 05:57 05:57 WBC 13.23 H RBC 3.69 L Hgb 10.4 L POC Hgb 10.2 L Hct 32.9 L POC Hct 30 L MCV 89.2 MCH 28.2 MCHC 31.6 L RDW Std Deviation 46.3 RDW Coeff of Ana 14.1 Plt Count 137 MPV 10.8 H Immature Gran % (Auto) 0.4 Neut % (Auto) 78.0 Lymph % (Auto) 12.8 Carbon % (Auto) 8.1 Eos % (Auto) 0.6 Baso % (Auto) 0.1 Neut # (Auto) 10.32 H Lymph # (Auto) 1.70 Carbon # (Auto) 1.07 H Eos # (Auto) 0.08 Baso # (Auto) 0.01 Immature Gran # (Auto) 0.05 H Absolute Nucleated RBC 0.05 H Nucleated RBC % (auto) 0.4 Sample Site R Radial POC pH 7.20 L POC pCO2 69 H POC pO2 97 H POC HCO3 27 H POC Total CO2 29 POC Base Excess -1.0 ABG pH ABG pH (Temp Correct) 7.207 L ABG pCO2 ABG pCO2 (Temp Corrct 67 H ABG pO2 POC ABG pO2 at Pt Temp 93 ABG HCO3 POC ABG O2 Sat 95.0 ABG O2 Saturation ABG Base Excess Berto Test Pass Barometric Pressure Oxygen Given O2 Delivery Device BIPAP POC O2 Rate 24 POC FiO2 40 IPAP 20 POC Sodium 140 Sodium 141 POC Potassium 3.7 Potassium 3.7 Chloride 108 H Carbon Dioxide 25 Anion Gap 8 BUN 69 H Creatinine 1.97 H Est Cr Clr Drug Dosing 28.0 Est GFR ( Amer) 29.7 Est GFR (Non-Af Amer) 25.7 BUN/Creatinine Ratio 35.0 H Glucose 90 POC Glucose Lactate Calcium 9.2 Phosphorus 4.2 Magnesium 2.0 Ammonia Troponin I High Sens Procalcitonin TSH Free T4 Random Cortisol Urine Color Urine Appearance Urine pH Ur Specific [place] Urine Protein Urine Glucose (UA) Urine Ketones Urine Blood Urine Nitrite Urine Bilirubin Urine Urobilinogen Ur Leukocyte Esterase Urine WBC (Auto) Urine RBC (Auto) U Hyaline Cast (Auto) U Epithel Cells (Auto) Urine Bacteria (Auto) Ur Renal Epithelial Cell Calcium Oxalate Crystal Urine Yeast 02/27/22 02/27/22 02/27/22 13:11 13:13 18:24 WBC RBC Hgb POC Hgb Hct POC Hct MCV MCH MCHC RDW Std Deviation RDW Coeff of Ana Plt Count MPV Immature Gran % (Auto) Neut % (Auto) Lymph % (Auto) Carbon % (Auto) Eos % (Auto) Baso % (Auto) Neut # (Auto) Lymph # (Auto) Carbon # (Auto) Eos # (Auto) Baso # (Auto) Immature Gran # (Auto) Absolute Nucleated RBC Nucleated RBC % (auto) Sample Site R Radial POC pH 7.23 L POC pCO2 59 H POC pO2 65 L POC HCO3 24 POC Total CO2 26 POC Base Excess -3.0 ABG pH ABG pH (Temp Correct) ABG pCO2 ABG pCO2 (Temp Corrct ABG pO2 POC ABG pO2 at Pt Temp ABG HCO3 POC ABG O2 Sat 87.0 L ABG O2 Saturation ABG Base Excess Berto Test Pass Barometric Pressure Oxygen Given O2 Delivery Device BIPAP POC O2 Rate 24 POC FiO2 30 IPAP 20 POC Sodium Sodium POC Potassium Potassium Chloride Carbon Dioxide Anion Gap BUN Creatinine Est Cr Clr Drug Dosing Est GFR ( Amer) Est GFR (Non-Af Amer) BUN/Creatinine Ratio Glucose POC Glucose 98 86 Lactate Calcium Phosphorus Magnesium Ammonia Troponin I High Sens Procalcitonin TSH Free T4 Random Cortisol Urine Color Urine Appearance Urine pH Ur Specific [place] Urine Protein Urine Glucose (UA) Urine Ketones Urine Blood Urine Nitrite Urine Bilirubin Urine Urobilinogen Ur Leukocyte Esterase Urine WBC (Auto) Urine RBC (Auto) U Hyaline Cast (Auto) U Epithel Cells (Auto) Urine Bacteria (Auto) Ur Renal Epithelial Cell Calcium Oxalate Crystal Urine Yeast 02/27/22 18:35 WBC RBC Hgb POC Hgb Hct POC Hct MCV MCH MCHC RDW Std Deviation RDW Coeff of Ana Plt Count MPV Immature Gran % (Auto) Neut % (Auto) Lymph % (Auto) Carbon % (Auto) Eos % (Auto) Baso % (Auto) Neut # (Auto) Lymph # (Auto) Carbon # (Auto) Eos # (Auto) Baso # (Auto) Immature Gran # (Auto) Absolute Nucleated RBC Nucleated RBC % (auto) Sample Site R Radial POC pH 7.23 L POC pCO2 57 H POC pO2 71 L POC HCO3 24 POC Total CO2 25 POC Base Excess -4.0 ABG pH ABG pH (Temp Correct) ABG pCO2 ABG pCO2 (Temp Corrct ABG pO2 POC ABG pO2 at Pt Temp ABG HCO3 POC ABG O2 Sat 90.0 ABG O2 Saturation ABG Base Excess Berto Test Pass Barometric Pressure Oxygen Given O2 Delivery Device BIPAP POC O2 Rate 24 POC FiO2 50 IPAP 20 POC Sodium Sodium POC Potassium Potassium Chloride Carbon Dioxide Anion Gap BUN Creatinine Est Cr Clr Drug Dosing Est GFR ( Amer) Est GFR (Non-Af Amer) BUN/Creatinine Ratio Glucose POC Glucose Lactate Calcium Phosphorus Magnesium Ammonia Troponin I High Sens Procalcitonin TSH Free T4 Random Cortisol Urine Color Urine Appearance Urine pH Ur Specific [place] Urine Protein Urine Glucose (UA) Urine Ketones Urine Blood Urine Nitrite Urine Bilirubin Urine Urobilinogen Ur Leukocyte Esterase Urine WBC (Auto) Urine RBC (Auto) U Hyaline Cast (Auto) U Epithel Cells (Auto) Urine Bacteria (Auto) Ur Renal Epithelial Cell Calcium Oxalate Crystal Urine Yeast PG Care Time/CCT Total # of Minutes Spent Total Time Spent with Patient: Total time spent is greater than 50% in coordination of care (as documented) at patient's floor/unit and/or counseling patient: Coding Level of Care Code 06309 Subseq Hosp Care Lvl 2 Diagnoses Acute on chronic respiratory failure with hypoxia and hypercapnia J96.21; J96.22 Hypothermia T68.XXXA Acute metabolic encephalopathy G93.41 Empty sella E23.6 Acute kidney injury N17.9 Hypomagnesemia E83.42 Seizure-like activity R56.9 Sepsis A41.9 Chronic kidney disease, stage 3a N18.31 Obesity E66.9 Hypertension I10 COPD (chronic obstructive pulmonary disease) J44.9 COPD type: unspecified COPD Elevated troponin R77.8 Sinusitis J32.9 Mastoiditis H70.90 Pulmonary nodules R91.8 DVT prophylaxis Z29.9 (1) COPD (chronic obstructive pulmonary disease) COPD type: unspecified COPD Qualified Code(s): J44.9 - Chronic obstructive pulmonary disease, unspecified
[2022-02-27] MEDS ORDERED: RAPID SEQUENCE INDUCTION BAG ONE (19:27)
--- NOTE | 2022-02-27 19:27 | Communication Note ---
Date of Service: February 27, 2022 Just prior to my arrival at the beginning of my shift, the patient was noted to have increasing hypoxia. Orders were placed for repeat ABG and up titration of BiPAP settings. Repeat gas demonstrates ongoing respiratory acidosis. Case was reviewed with my attending physician. Given the patient's ongoing hypercarbia and respiratory acidosis, I do feel that it is in the patient's best interest to undergo emergent endotracheal intubation for appropriate ventilation and oxygenation. I did reach out to the patient's son, Ruddy Landeros ([phone]), at 1914 and discussed her current status. We did discuss that with her ongoing respiratory failure and need for intubation puts her at high risk for eventual need for tracheostomy tube placement for chronic respiratory failure and inability to wean from the ventilator. He acknowledges this and wishes to proceed with intubation at this point with further decisions to be made as clinical course further defines itself. Orders were placed for sedation and RSI was collected. Dr. Espino from the emergency department was kind enough to beam builder helper in intubation. Please see separate note. Order placed for CT of head given the patient's ongoing altered mental status. Additionally CT chest for evaluation of any worsening or underlying pulmonary disease. Patient did require initiation of Levophed drip shortly after initiation of sedation. Arterial line was placed. See separate noted. Patient transported to CT. CT head unremarkable. CT Chest concerning for RLL consolidation. Secretions/debris noted in the trachea and right mainstem bronchus as well as LEFT mainstem bronchus. Orders placed for Zosyn and Vanc to be renally dosed by pharmacy. Order for sputum cultures as well. Patient with repeat blood gas showing improvement. Will continue to titrate ventilator settings as needed. Patient appearing well at this point. I have personally spent 85 minutes of critical care time in the direct management of this patient. This is a life/limb threatening event. This includes time spent evaluating patient, direct bedside care, chart review, placing orders, interpretation of diagnostic studies, discussion with consultants, patient, and family members, as well as other required patient management activities. This time is exclusive of all separately billable procedures, and teaching time and separate from and in addition to any other critical care service time. Coding Level of Care Code Critical Care ea addt'l 30 min Time Spent (min) 85
[2022-02-27] MEDS ORDERED: STAT IV Infusion **Titration per Protocol STA ×2 (19:28→23:27)
[2022-02-27] MEDS ORDERED: PROPOFOL BOLUS FROM BAG IV PRN (19:28)
[2022-02-27] MEDS ORDERED: fentaNYL citrate 2,500 MCG/250 ML BAG IV SCH (19:30)
[2022-02-27] MEDS: propofoL 1,000 MG/100 ML VIAL IV SCH (19:37)
[2022-02-27] MEDS ORDERED: NOREPINEPHRINE/D5W 4 MG/250 ML IV ONE (20:05)
--- NOTE | 2022-02-27 20:27 | Procedure Note ---
Procedure Note Date of Service February 27, 2022 Note APC: Pedro Worthington PA-C. Attending: Bailey= A time-out was completed verifying correct patient, procedure, site, positioning. Patient was evaluated and required intubation for COPD exacerbation with hypercarbic respiratory failure and failed NIPPV, persistent respiratory acidemia, AMS. Sedative agent used: Etomidate Paralysis agent used: Succinylcholine Emergent consent was implied given patients rapidly declining clinical status a nd need for airway protection. The patient was prepared in the appropriate fashion. Sedation was achieved utilizing etomidate and succinylcholine. The patient was easily ventilated using [id number] to achieve adequate oxygenation. Initial attempt was complicated by need for aggressive upper airway suctioning and GlideScope malfunction and need for restarting machine. During this period, the patient was bagged easily with BVM and patient remained with saturations of near 100%. On second attempt a 7.5 Kisw[place]ili endotracheal tube was placed under using video laryngoscopy to 24 cm at the lip. The stylette was removed and balloon was inflated with 10mL of air. Appropriate Colorimetric change was appreciated. Bilateral breath sounds were heard without air sounds in the abdomen. Dr. Srinivas MD (Emergency Medicine) was present for the entire procedure. Post Intubation Chest X-ray confirms placement without pneumothorax. Patient tolerated the procedure well and there were no immediate complications. Coding CPT Codes Resuscitation - Resuscitation: 37401 Endotracheal Intubation, emergency ([id number]) [facility] Procedure Codes (Charges) Resuscitation Resuscitation: 36310 Endotracheal Intubation, emergency
--- NOTE | 2022-02-27 20:28 | XRay Report ---
SINGLE VIEW CHEST CLINICAL HISTORY: Respiratory failure. Intubation. FINDINGS: 3 AP, portable, semierect chest radiographs are compared to study dated 02/26/2022 and corre lated with chest CT dated 02/20/2022. The examination is significant degraded by portable technique an d patient rotation. An endotracheal tube has been placed. The tip projects approximately 3 cm above t he erik. An enteric tube has been placed. This projects below the diaphragm and the tip is not visu alized. A left subclavian central venous catheter is unchanged in position. Emphysema and chronic int erstitial thickening is similar to previous. There is volume loss in the right lung with rightward sh ift of the mediastinum. The heart is normal in size and there is atherosclerotic calcification of the thoracic aorta. Scarring/atelectasis is noted at the lung bases. No large pleural effusion or pneumo thorax is seen. The skeletal structures are osteopenic. There are healed right-sided rib fractures. C holecystectomy clips are noted in the right upper quadrant. IMPRESSION: 1. Endotracheal and enteric tubes have been placed as above. 2. Emphysema and chronic parenchymal changes as above. 3. No airspace consolidation typical for pneumonia or large pleural effusion is identified. ACT 112: Negative or not required by law. Electronically signed by: Lexa Mcgraw M.D. 02/27/2022 8:26 PM
[2022-02-27] MEDS: NOREPINEPHRINE/D5W 4 MG/250 ML PLCT IV SCH (20:30)
[2022-02-27 20:52] LABS: iSTAT Allen Test Pass; iSTAT Art Bld Gas pCO2 Correct 63 mmHg (35-46); iSTAT Art Bld Gas pH Corrected 7.209 (7.35-7.45); iSTAT Arterial Blood Gas HCO3 25 meg/L (19-24); iSTAT Arterial Blood Gas pCO2 65 mmHg (35-46); iSTAT Arterial Blood Gas pO2 91 mmHg (80-95); iSTAT Arterial Blood Gas pO2 C 89; iSTAT Carbon Dioxide 27 mmol/L (24-31); iSTAT FiO2 90 %; iSTAT Hematocrit 27 % (37-47); iSTAT Hemoglobin 9.2 g/dl (12.0-16.0); iSTAT Site R Radial; iSTAT Sodium 141 mmol/L (135-144)
--- NOTE | 2022-02-27 21:00 | Procedure Note ---
Procedure Note Date of Service February 27, 2022 Note Procedure: Arterial Line Placement Attending: Dr. Avalos APC: Pedro Worthington PA-C Indication: Hemodynamic monitoring Anesthesia: Lidocaine 1% Emergent Consent implied in the setting of clinical deterioration and need for close hemodynamic monitoring, ABG monitoring, frequent lab draws, etc. A time-out was completed verifying correct patient, procedure, site, positioning, and implant(s) or special equipment if applicable. Allens test was performed to ensure adequate perfusion. Patients RIGHT wrist was prepped and draped in the usual sterile fashion. Ultrasound guidance was used to aid needle placement. A 20g Arrow arterial line was introduced into the RIGHT Radial artery. Catheter was threaded, and the needle was removed with appropriate blood return. Good waveform was observed. The patient tolerated the procedure well. Confirmation of placement with ultrasound. Blood Loss: Minimal Complications: None Procedural Ultrasound Guidance: Procedure Date: Indication: Hemodynamic Monitoring, Frequent ABGs/Lab draws. Attending: Dr. Avalos APC: Pedro Worthington PA-C Artery Identified: YES Line confirmed in Artery with ultrasound: YES Complications: NONE Patient tolerated procedure: WELL Coding CPT Codes Tubes, Drains, and Vasc Access - Tubes, Drains, and Vasc Access: [id number] Insertion Catheter, Artery ([id number]) [facility] [place] Procedure Codes (Charges) Tubes, Drains, and Vasc Access Procedure 2: Tubes, Drains, and Vasc Access: [id number] Insertion Catheter, Artery
[2022-02-27] MEDS: BUDESONIDE 0.25 MG/2 ML VIAL (PULMICORT) NEB SCH (21:16)
--- NOTE | 2022-02-27 21:23 | CT Scan Report ---
CT SCAN OF THE BRAIN WITHOUT IV CONTRAST CLINICAL HISTORY: Change in mental status. COMPARISON STUDY: CT of the brain dated 02/20/2022. TECHNIQUE: Unenhanced axial CT scan of the brain is performed from the vertex to the skull base. A do se lowering technique was utilized adhering to the principles of ALARA. CT DOSE: 1667.08 mGy.cm FINDINGS: Endotracheal and enteric tubes are noted on the prison keeper tomogram. Brain parenchyma: There is age-related involutional change noting mild subcortical and periventricula r microangiopathic disease. There is no hemorrhage, mass effect, or evidence of acute territorial isc hemia by CT criteria. Bustamante-white matter differentiation is preserved. No extra-axial fluid collection is seen. Ventricles, sulci, cisterns: Prominent secondary to involutional change. Intracranial vasculature: There is atherosclerotic calcification of the cavernous carotid and vertebr al arteries. Calvarium: The skeletal structures are osteopenic. No depressed calvarial fracture is identified. Soft tissues: There is an occipital scalp contusion. Sinuses and mastoids: There is moderate mucosal thickening in the right maxillary antrum. The remaini ng paranasal sinuses are clear. There are bilateral mastoid effusions. Orbits: The bony orbits are grossly intact. IMPRESSION: There is no hemorrhage, mass effect, or evidence of acute territorial ischemia by CT zaira gibson. ACT 112: Negative or not required by law. Electronically signed by: Lexa Mcgraw M.D. 02/27/2022 9:21 PM
--- NOTE | 2022-02-27 21:36 | CT Scan Report ---
CT SCAN OF THE CHEST WITHOUT IV CONTRAST CLINICAL HISTORY: Hypoxia COMPARISON STUDY: Chest x-ray dated 02/27/2022. Chest CT dated 02/20/2022. Abdominal CT scan performed the same day 02/27/2022. TECHNIQUE: CT scan of the thorax was performed from the thoracic inlet to the upper abdomen. Images are reviewed in the axial, sagittal, and coronal planes. IV contrast was not administered for this ex amination as per the referring clinician. A dose lowering technique was utilized adhering to the mery Montez. The examination is degraded by motion artifact, as well as by streak artifact from the arms which could not be elevated above the chest. FINDINGS: Thyroid: Normal in size and heterogeneous in attenuation. Thoracic aorta: There is atherosclerotic calcification of the thoracic aorta, which is normal in husam evangelist and demonstrates standard 3-vessel arch anatomy. Heart: A left subclavian central venous catheter is in place. The heart is normal in size and without pericardial effusion. There are coronary artery calcifications. Lungs and pleural spaces: Emphysema is noted and there is chronic volume loss in the right lung with compensatory hyperinflation of the left lung. Foci of parenchymal scarring are seen throughout both l ungs. An endotracheal tube is in place and terminates above the erik. Secretions are noted in the t rachea. Secretions/debris fill the right mainstem bronchus and are seen throughout the lower lobe air ways. Mild secretions are also seen in the left mainstem bronchus. Dependent consolidation at the rig ht lung base is new as compared to today's abdominal CT scan. There are scattered calcified granuloma s. Punctate nodules at the right apex are new from previous and likely inflammatory. A 4 mm left uppe r lobe pulmonary nodule image #84 is unchanged. A trace right pleural effusion is noted. Mediastinum: There is increasing rightward shift of mediastinum is compared to previous. Numerous mil dly enlarged mediastinal lymph nodes are similar to previous and measure up to 10 mm in short axis. Ivanna: Not well assessed without IV contrast. Axillae: There is no axillary lymphadenopathy. Upper abdomen: There is a small hiatal hernia. An enteric tube extends below the diaphragm into the s tomach. Cholecystectomy clips are noted. Cortical scarring is noted in the upper pole of the left kid oc. Skeletal structures: The skeletal structures are osteopenic. No lytic or blastic bony lesions are see n. IMPRESSION: 1. Lines and tubes as above. 2. There is near complete opacification of the right lower lobe airways, which is new from 02/20/2022. Correlate clinically for evidence of aspiration. 3. Airspace consolidation at the right lung base is new from earlier today and there is increased vol ume loss in the right lung with increasing rightward shift of the mediastinum. The dependent consolid ation likely represents atelectasis. Correlate clinically for evidence of a superimposed pneumonia/as piration pneumonitis. 4. A trace right pleural effusion is new from earlier today. 5. Emphysema and chronic volume loss in the right lung as above. 6. Mild secretions/debris is also seen in the left mainstem bronchus. 7. Additional findings as above. ACT 112: Negative or not required by law. Electronically signed by: Lexa Mcgraw M.D. 02/27/2022 9:33 PM
[2022-02-27] MEDS ORDERED: PIPERACILL/TAZOBAC CONSULT ACTIVE PRN (21:45)
[2022-02-27] MEDS ORDERED: VANCOMYCIN HCL 1,250 MG in SODIUM CHLORIDE 0.9% 500 ML IV SCH (21:45)
[2022-02-27] MEDS ORDERED: VANCOMYCIN CONSULT ACTIVE PRN (21:45)
[2022-02-27] MEDS ORDERED: VANCOMYCIN HCL 1,500 MG in SODIUM CHLORIDE 0.9% 500 ML IV ONE (22:00)
[2022-02-27] MEDS ORDERED: PIPERACILLIN/TAZOBACTAM 4.5 GM in DEXTROSE 5% 100 ML IV ONE (22:00)
[2022-02-27] MEDS: SENNOSIDES 8.8 MG/5 ML UDC PO SCH (22:28)
[2022-02-27 22:31] LABS: Basophils # (auto) 0.02 K/uL (0-0.2); Basophils % (auto) 0.1 %; Eosinophils # (auto) 0.08 K/uL (0-0.5); Eosinophils % (auto) 0.5 %; Hematocrit (blood only) 31.4 % (37-47); Hemoglobin 10.1 g/dL (12.0-16.0); Immature Granulocytes # (auto) 0.06 K/uL (0.00-0.02); Immature Granulocytes % (auto) 0.4 %; Lymphocytes # (auto) 2.57 K/uL (1.2-3.4); Lymphocytes % (auto) 17.3 %; Mean Corpuscular Hemoglobin 28.6 pg (25-34); Mean Corpuscular Hgb Conc 32.2 g/dL (32-36); Mean Platelet Volume 10.5 fL (7.4-10.4); Monocytes # (auto) 1.06 K/uL (0.11-0.59); Monocytes % (auto) 7.1 %; Neutrophils # (auto) 11.09 K/uL (1.4-6.5); Neutrophils % (auto) 74.6 %; Nucleated RBC # (auto) 0.03 K/uL (0-0); Nucleated RBC % (auto) 0.2 %; Platelet Count 152 K/uL (130-400); RDW Coefficient of Variation 14.4 % (11.5-14.5); RDW Standard Deviation 46.6 fL (36.4-46.3); Red Blood Count 3.53 M/uL (4.2-5.4); White Blood Count 14.88 K/uL (4.8-10.8)
[2022-02-27] MEDS: VALPROATE SOD 500 MG in DEXTROSE 5% 50 ML IV SCH (22:31)
[2022-02-27 22:44] LABS: iSTAT Art Bld Gas pCO2 Correct 60 mmHg (35-46); iSTAT Art Bld Gas pH Corrected 7.239 (7.35-7.45); iSTAT Arterial Blood Gas HCO3 26 meg/L (19-24); iSTAT Arterial Blood Gas pCO2 61 mmHg (35-46); iSTAT Arterial Blood Gas pH 7.24 (7.35-7.45); iSTAT Arterial Blood Gas pO2 84 mmHg (80-95); iSTAT Arterial Blood Gas pO2 C 82; iSTAT Carbon Dioxide 27 mmol/L (24-31); iSTAT FiO2 100 %; iSTAT Hematocrit 28 % (37-47); iSTAT Hemoglobin 9.5 g/dl (12.0-16.0); iSTAT Site Art Line; iSTAT Sodium 142 mmol/L (135-144)
[2022-02-27 22:51] LABS: BUN Creatinine Ratio 42.2 (10-20); Calcium 9.4 mg/dl (8.5-10.1); Creatinine Clr Calc Pharmacy 31.9 ml/min; Est GFR (African American) 34.8 ml/min; Phosphorus 3.7 mg/dl (2.5-4.9); Potassium 4.1 mmol/L (3.5-5.1)
--- NOTE | 2022-02-27 23:25 | Emergency Department Note ---
ED Visit Note I was called to the ICU to supervise and intubation of this patient secondary to respiratory failure. Endotracheal Intubation Indication: respiratory failure I have personally seen and evaluated the patient with the PA. I was present during the procedure. Please refer to Pedro Worthington PA-C's notes for further details of the intubation. The patient was on 100% oxygen via NRB prior to the procedure. Suction, airway equipment, RSI drugs, respiratory equipment, and appropriate personnel were prepared prior to the initiation of the procedure. A time out was taken. Induction was performed with 20 mg of etomidate and 100 mg of succinylcholine. After observing the clinical benefit of the medications, the airway was easily visualized utilizing a Glidescope. The cuff inflated without signs of malfunction. There were bilateral breath sounds, positive colormetric change, no gastric sounds, a good capnography waveform, and post procedure pulse oximetry was 94%. Post intubation sedation and paralysis per ICU team. There were no complications. . : Respiratory failure Qualifiers: Chronicity: acute Respiratory failure complication: hypoxia and hypercapnia Qualified Code(s): J96.01 - Acute respiratory failure with hypoxia Fever Qualifiers: Fever type: unspecified Qualified Code(s): R50.9 - Fever, unspecified AMS (altered mental status) Qualifiers: Altered mental status type: unspecified Qualified Code(s): R41.82 - Altered mental status, unspecified
[2022-02-28] MEDS: INSULIN ASPART PER UNIT SC SCH ×4 (00:03→18:12)
[2022-02-28] MEDS: CHECK CLONIDINE PATCH PLACEMENT SCH ×2 (00:03→08:24)
[2022-02-28] MEDS: METOPROLOL TARTRATE 1 MG/ML VIAL IV SCH ×2 (00:04→04:51)
[2022-02-28] MEDS: PIPERACILLIN/TAZOBACTAM 3.375 GM in DEXTROSE 5% 100 ML IV SCH ×3 (03:44→19:29)
[2022-02-28 04:08] LABS: iSTAT Art Bld Gas pCO2 Correct 51 mmHg (35-46); iSTAT Art Bld Gas pH Corrected 7.267 (7.35-7.45); iSTAT Arterial Blood Gas HCO3 23 meg/L (19-24); iSTAT Arterial Blood Gas pCO2 51 mmHg (35-46); iSTAT Arterial Blood Gas pH 7.27 (7.35-7.45); iSTAT Arterial Blood Gas pO2 62 mmHg (80-95); iSTAT Arterial Blood Gas pO2 C 63; iSTAT Carbon Dioxide 25 mmol/L (24-31); iSTAT FiO2 70 %; iSTAT Hematocrit 27 % (37-47); iSTAT Hemoglobin 9.2 g/dl (12.0-16.0); iSTAT Potassium 3.6 mmol/L (3.3-5.0); iSTAT Site Art Line; iSTAT Sodium 139 mmol/L (135-144)
--- NOTE | 2022-02-28 04:12 | Pharmacy Report ---
Pharmacy [facility] Short Note - Date of Service February 28, 2022 - Assessment & Plan Assessment 66 year old F receiving Vancomycin and Zosyn for treatment of pneumonia. Plan Vancomycin * Patient received Vancomycin 1500mg (~19mg/kg) IV loading dose 02/27 @ 2230. * SCr is elevated from baseline (currently 1.73, baseline ~1), so will check a random vancomycin level with 5/30 am labs. * Further dosing based on levels and renal function. Zosyn * Zosyn 4.5gm IV x 1 then 3.375gm IV q8h for CrCl > 20 ml/min. Pharmacy will continue to follow and will adjust dose/frequency as necessary. Thank you.
[2022-02-28] MEDS: propofoL 1,000 MG/100 ML VIAL IV SCH ×2 (04:50→17:00)
[2022-02-28 06:12] LABS: Albumin Level 2.8 gm/dl (3.4-5.0); BUN Creatinine Ratio 42.7 (10-20); Bilirubin Direct 0.1 mg/dl (0-0.2); Bilirubin,Total 0.3 mg/dl (0.2-1.0); Creatinine Clr Calc Pharmacy 33.7 ml/min; Est GFR (African American) 37.1 ml/min; Phosphorus 2.8 mg/dl (2.5-4.9); Potassium 3.6 mmol/L (3.5-5.1); Total Protein 4.8 gm/dl (6.0-8.3)
[2022-02-28] MEDS: HEPARIN SOD 5,000 UNIT/0.5 ML VIAL SQ SCH ×3 (06:13→21:10)
[2022-02-28 06:29] LABS: Basophils # (auto) 0.02 K/uL (0-0.2); Basophils % (auto) 0.1 %; Eosinophils # (auto) 0.23 K/uL (0-0.5); Eosinophils % (auto) 1.5 %; Hematocrit (blood only) 28.7 % (37-47); Hemoglobin 9.3 g/dL (12.0-16.0); Immature Granulocytes # (auto) 0.05 K/uL (0.00-0.02); Immature Granulocytes % (auto) 0.3 %; Lymphocytes # (auto) 2.75 K/uL (1.2-3.4); Lymphocytes % (auto) 17.9 %; Mean Corpuscular Hemoglobin 28.4 pg (25-34); Mean Corpuscular Hgb Conc 32.4 g/dL (32-36); Mean Corpuscular Volume 87.5 fL (80-100); Mean Platelet Volume 10.4 fL (7.4-10.4); Monocytes # (auto) 1.23 K/uL (0.11-0.59); Neutrophils # (auto) 11.08 K/uL (1.4-6.5); Neutrophils % (auto) 72.2 %; Nucleated RBC # (auto) 0.05 K/uL (0-0); Nucleated RBC % (auto) 0.3 %; Platelet Count 129 K/uL (130-400); RDW Coefficient of Variation 14.4 % (11.5-14.5); RDW Standard Deviation 45.8 fL (36.4-46.3); Red Blood Count 3.28 M/uL (4.2-5.4); White Blood Count 15.36 K/uL (4.8-10.8)
--- NOTE | 2022-02-28 07:49 | Critical Care Progress Note ---
Date of Service February 28, 2022 Assessment & Plan (1) Admitted to intensive care unit: Plan: Reason Critically Ill: 66-year-old female with recurrent acute on chronic hypoxemic respiratory failure with hypercapnia requiring intubation overnight and close monitoring. 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 medications.IV supplementation if needed. Hold clonidine patch. * Levophed for BP support * Monitor on telemetry. RESPIRATORY - * Acute on chronic hypoxemic respiratory failure with hypercapnia: Poor compliance. Intubated overnight, will likely need to be trached. Continue budesonide and Performist BID for history of COPD * Bronchoscopy performed to suction secretions causing mucus plug and right lower lobe collapse GI/NUTRITION - * N.p.o. while intubated. RENAL/LYTES - * GERALD: * Likely from poor p.o. intake. * Continue with IV fluids for now. * IVF: Normosol 80 cc an hour. - * Degroot in place - Strict I&Os. ENDO - * DMII * BSGs per unit protocol. ISS --> gtt per unit policy. HEME - * Stable H&H ID - * Repeat blood cultures pending.Lumbar puncture from earlier in the hospitalization negative. Prior sputum and blood cultures negative. Repeat urine culture pending. Currently on daptomycin, doxycycline and cefepime. Pro-[place] negative. Continue Zosyn while cultures pending. LINES/IV ACCESS - * PIVs x2 * LEFT Subclavian CVL --> will remove and get PICC line * Degroot DVT PROPHYLAXIS - * Heparin * SCDs Thank you for allowing us to participate in the care of this patient. Please refer to my attending physician's documentation for any further recommendations. (2) Acute on chronic respiratory failure with hypoxia and hypercapnia: (3) Acute metabolic encephalopathy: Admission and Anticipated Discharge Date Admission Date: February 20, 2022 Supervising Physician Co-Signing Physician Notes Dr. Kemp was the resident-physician during care of patient. I separately ev aluated patient for jane portions of the history and the exam. I was present during the critical portion of medical decision making, and I discussed the case with the resident. I generally agree with the findings and plan except for any additions/exceptions noted. Patient seen and examined at bedside. No acute distress. Patient was on propofol 20, fentanyl 25 and Levophed 0.03 at the time of ex amination Constitutional: No acute distress HEENT: EOMI, PERRLA, positive ETT Respiratory system: Decreased air entry bilaterally, no wheeze, no rhonchi, mild crackles bilaterally CVS: S1-S2 positive, no murmurs or gallops Abdomen: Soft, nontender, nondistended, positive bowel sounds x4, obese Extremities: +2 pulses bilaterally radialis/ dorsalis pedis, no cyanosis, +1 pitting edema bilateral lower extremity Neuro: RASS -1, follows simple commands Psych: Unable to assess G/U: Positive Degroot --Prophylaxis VTE: Heparin GI: Pantoprazole Lines: Left subclavian, right radial, positive Degroot Diet: N.p.o. Plan: In/out: +1900, urine output 822, total 5.6 L positive since coming to the hospital AB.27/51/62 on PEEP of 8, 70% with respirate of 26 Respiratory was increased to 28. Chest x-ray from today shows mediastinal shift to the right with right lower lobe collapse. CT chest also personally reviewed from today. There seem to be some debris in the right lower lobe/right mainstem. Bronchoscopy was performed today to rule out mucous plugging. There was some secretions that but not significant for Enough to cause the right lower lobe collapse Chest x-ray postprocedure did not show pneumothorax with mediastinal shift chest persist. It seems patient most likely aspirated and she has right lower lobe pneumonia. I will repeat nasal MRSA if it is negative we will discontinue vancomycin. Continue with Zosyn Thrombocytopenia. Continue to monitor We will see how the patient progresses in the next 24-48 hours. If the patient's mental status is not good then consideration for tracheostomy given this is her second intubation during this hospitalization with multiple intubations in the past Hold blood pressure medication. Try to wean off vasopressor support gradually to keep MAP greater than 65 Patient's A-line shows diastolic pressure which is very low. It is better to correlate blood pressure from the cuff measurement I would like the removal of the left subclavian line, IV team was not able to get a good access for PICC line. Hopefully we will be able to titrate off vasopressors and if so then we will just use the peripheral access I have personally spent 40 minutes of critical care time in the direct management of this patient. This is a life/limb threatening event. This includes time spent evaluating patient, direct bedside care, chart review, placing orders, interpretation of diagnostic studies, discussion with consultants, patient, and/or family members regarding treatment decisions, as well as other required patient management activities. This time is exclusive of all separately billable procedures, and teaching time and separate from and in addition to any other critical care service time. Subjective Overnight patient was intubated for ongoing hypercapnia and worsening respiratory acidosis. Patient seen and examined this morning. She does awake and follows intermittent commands. Does not appear to be in respiratory distress at this time while on ventilator. Review of Systems Review of Systems: Unobtainable due to endotracheal tube Physical Exam Physical Exam: Constitutional: intubated on ventilator, in no acute distress. Vitals as above. HEENT: PERRL, conjunctivae normal, anicteric sclerae Neck: trachea midline, no thyromegaly Lungs: Coarse breath sounds bilaterally R>L.No wheezes. Cardiac: RRR, no murmur, minimal pitting edema lower extremities, extremity pulses present Abdomen: normal bowel sounds, soft, nontender, no hepatosplenomegaly MSK: No cyanosis or clubbing. Skin: No rashes, extremities cool to touch, dry. Neurologic: EOMI, accommodation nl Results & Data Results & Data ([facility]) Vital Signs (Past 12 Hours) Vital Signs Temp Pulse Resp BP Pulse Ox 02/28/22 07:01 37.2 C 74 26 H 157/83 H 99 02/28/22 06:30 37.2 C 68 26 H 114/60 98 02/28/22 06:00 37.2 C 60 26 H 139/62 98 02/28/22 05:30 37.1 C 66 26 H 129/68 97 02/28/22 05:00 37.2 C 67 26 H 120/63 97 02/28/22 04:30 37.2 C 67 26 H 118/58 L 97 02/28/22 04:00 37.1 C 68 26 H 114/52 L 95 02/28/22 03:35 68 27 H 97 02/28/22 03:30 37.1 C 63 26 H 155/79 H 99 02/28/22 03:00 37.0 C 60 26 H 149/81 H 98 02/28/22 02:30 36.9 C 59 L 26 H 141/70 H 99 02/28/22 02:00 36.8 C 61 26 H 136/78 97 02/28/22 01:30 36.7 C 69 26 H 109/73 97 02/28/22 01:00 36.7 C 70 26 H 127/92 92 02/28/22 00:30 36.6 C 76 26 H 125/69 96 02/28/22 00:00 36.7 C 73 26 H 151/82 H 96 02/27/22 23:30 36.7 C 74 26 H 148/90 H 94 02/27/22 23:00 36.7 C 63 26 H 137/70 94 02/27/22 22:58 88 26 H 94 02/27/22 22:30 36.7 C 76 26 H 118/71 98 02/27/22 22:00 36.6 C 74 26 H 101/52 L 95 02/27/22 21:36 36.5 C 75 26 H 125/60 91 02/27/22 21:30 36.5 C 75 26 H 95 02/27/22 21:23 83 27 H 95 02/27/22 20:37 36.5 C 74 24 92/46 L 99 02/27/22 20:35 26 H 02/27/22 20:25 36.5 C 85 24 111/64 92 02/27/22 20:21 36.5 C 84 24 125/61 95 02/27/22 20:13 36.6 C 85 24 157/85 H 99 02/27/22 20:11 36.6 C 89 24 148/73 H 100 02/27/22 20:09 36.6 C 84 24 109/57 L 97 02/27/22 20:08 36.6 C 84 20 113/58 L 98 02/27/22 20:05 36.6 C 80 27 H 83/38 L 100 02/27/22 20:00 36.7 C 89 21 152/69 H 100 02/27/22 19:48 36.7 C 83 32 H 137/84 100 05/29/22 19:46 36.7 C 83 29 H 151/92 H 100 Laboratory Results 02/28/22 02/28/22 02/28/22 Range/Units 05:25 05:23 05:23 WBC (4.8-10.8) K/uL RBC (4.2-5.4) M/uL Hgb (12.0-16.0) g/dL POC Hgb (12.0-16.0) g/dl Hct (37-47) % POC Hct (37-47) % MCV (80-100) fL MCH (25-34) pg MCHC (32-36) g/dL RDW Std Deviation (36.4-46.3) fL RDW Coeff of Ana (11.5-14.5) % Plt Count (130-400) K/uL MPV (7.4-10.4) fL Immature Gran % (Auto) % Neut % (Auto) % Lymph % (Auto) % [place] % (Auto) % Eos % (Auto) % Baso % (Auto) % Neut # (Auto) (1.4-6.5) K/uL Lymph # (Auto) (1.2-3.4) K/uL [place] # (Auto) (0.11-0.59) K/uL Eos # (Auto) (0-0.5) K/uL Baso # (Auto) (0-0.2) K/uL Immature Gran # (Auto) (0.00-0.02) K/uL Absolute Nucleated RBC (0-0) K/uL Nucleated RBC % (auto) % Sample Site POC pH (7.35-7.45) POC pCO2 (35-46) mmHg POC pO2 (80-95) mmHg POC HCO3 (19-24) rosalind/L POC Total CO2 (24-31) mmol/L POC Base Excess (-9-1.8) rosalind/L ABG pH (Temp Correct) (7.35-7.45) ABG pCO2 (Temp Corrct (35-46) mmHg POC ABG pO2 at Pt Temp POC ABG O2 Sat (90-95) % Berto Test O2 Delivery Device POC O2 Rate Minute Ventilation POC FiO2 % Tidal Volume PEEP IPAP POC Sodium (135-144) mmol/L Sodium 141 (136-145) mmol/L POC Potassium (3.3-5.0) mmol/L Potassium 3.6 (3.5-5.1) mmol/L Chloride 108 H (98-107) mmol/L Carbon Dioxide 23 (21-32) mmol/L Anion Gap 10 (3-11) BUN 70 H (6-23) mg/dl Creatinine 1.64 H (0.6-1.2) mg/dl Est Cr Clr Drug Dosing 33.7 ml/min Est GFR ( Amer) 37.1 ml/min Est GFR (Non-Af Amer) 32.0 ml/min BUN/Creatinine Ratio 42.7 H (10-20) Glucose 101 H (70-99(Fasting)) mg/dl POC Glucose 108 H (70-99) mg/dl Lactate (0.4-2.0) mmol/L Calcium 9.0 (8.5-10.1) mg/dl Phosphorus 2.8 (2.5-4.9) mg/dl Magnesium 2.0 (1.7-2.4) mg/dl Total Bilirubin 0.3 (0.2-1.0) mg/dl Direct Bilirubin 0.1 (0-0.2) mg/dl AST 21 (13-39) U/L ALT 16 (7-52) U/L Alkaline Phosphatase 38 (34-104) U/L Total Creatine Kinase 49 (26-192) U/L Total Protein 4.8 L (6.0-8.3) gm/dl Albumin 2.8 L (3.4-5.0) gm/dl Procalcitonin 0.06 (0-0.5) ng/ml Random Vancomycin (10-20) mcg/ml 02/28/22 02/28/22 02/28/22 Range/Units 05:23 05:23 03:55 WBC 15.36 H (4.8-10.8) K/uL RBC 3.28 L (4.2-5.4) M/uL Hgb 9.3 L (12.0-16.0) g/dL POC Hgb 9.2 L (12.0-16.0) g/dl Hct 28.7 L (37-47) % POC Hct 27 L (37-47) % MCV 87.5 (80-100) fL MCH 28.4 (25-34) pg MCHC 32.4 (32-36) g/dL RDW Std Deviation 45.8 (36.4-46.3) fL RDW Coeff of Ana 14.4 (11.5-14.5) % Plt Count 129 L (130-400) K/uL MPV 10.4 (7.4-10.4) fL Immature Gran % (Auto) 0.3 % Neut % (Auto) 72.2 % Lymph % (Auto) 17.9 % [place] % (Auto) 8.0 % Eos % (Auto) 1.5 % Baso % (Auto) 0.1 % Neut # (Auto) 11.08 H (1.4-6.5) K/uL Lymph # (Auto) 2.75 (1.2-3.4) K/uL [place] # (Auto) 1.23 H (0.11-0.59) K/uL Eos # (Auto) 0.23 (0-0.5) K/uL Baso # (Auto) 0.02 (0-0.2) K/uL Immature Gran # (Auto) 0.05 H (0.00-0.02) K/uL Absolute Nucleated RBC 0.05 H (0-0) K/uL Nucleated RBC % (auto) 0.3 % Sample Site Art Line POC pH 7.27 L (7.35-7.45) POC pCO2 51 H (35-46) mmHg POC pO2 62 L (80-95) mmHg POC HCO3 23 (19-24) rosalind/L POC Total CO2 25 (24-31) mmol/L POC Base Excess -4.0 (-9-1.8) rosalind/L ABG pH (Temp Correct) 7.267 L (7.35-7.45) ABG pCO2 (Temp Corrct 51 H (35-46) mmHg POC ABG pO2 at Pt Temp 63 POC ABG O2 Sat 88.0 L (90-95) % Berto Test NA O2 Delivery Device Ventilator POC O2 Rate 26 Minute Ventilation 9.3 POC FiO2 70 % Tidal Volume 360 PEEP 8 IPAP POC Sodium 139 (135-144) mmol/L Sodium (136-145) mmol/L POC Potassium 3.6 (3.3-5.0) mmol/L Potassium (3.5-5.1) mmol/L Chloride (98-107) mmol/L Carbon Dioxide (21-32) mmol/L Anion Gap (3-11) BUN (6-23) mg/dl Creatinine (0.6-1.2) mg/dl Est Cr Clr Drug Dosing ml/min Est GFR ( Amer) ml/min Est GFR (Non-Af Amer) ml/min BUN/Creatinine Ratio (10-20) Glucose (70-99(Fasting)) mg/dl POC Glucose (70-99) mg/dl Lactate (0.4-2.0) mmol/L Calcium (8.5-10.1) mg/dl Phosphorus (2.5-4.9) mg/dl Magnesium (1.7-2.4) mg/dl Total Bilirubin (0.2-1.0) mg/dl Direct Bilirubin (0-0.2) mg/dl AST (13-39) U/L ALT (7-52) U/L Alkaline Phosphatase (34-104) U/L Total Creatine Kinase (26-192) U/L Total Protein (6.0-8.3) gm/dl Albumin (3.4-5.0) gm/dl Procalcitonin (0-0.5) ng/ml Random Vancomycin 22.3 H (10-20) mcg/ml 02/27/22 02/27/22 02/27/22 Range/Units 22:29 22:14 22:14 WBC (4.8-10.8) K/uL RBC (4.2-5.4) M/uL Hgb (12.0-16.0) g/dL POC Hgb 9.5 L (12.0-16.0) g/dl Hct (37-47) % POC Hct 28 L (37-47) % MCV (80-100) fL MCH (25-34) pg MCHC (32-36) g/dL RDW Std Deviation (36.4-46.3) fL RDW Coeff of Ana (11.5-14.5) % Plt Count (130-400) K/uL MPV (7.4-10.4) fL Immature Gran % (Auto) % Neut % (Auto) % Lymph % (Auto) % [place] % (Auto) % Eos % (Auto) % Baso % (Auto) % Neut # (Auto) (1.4-6.5) K/uL Lymph # (Auto) (1.2-3.4) K/uL [place] # (Auto) (0.11-0.59) K/uL Eos # (Auto) (0-0.5) K/uL Baso # (Auto) (0-0.2) K/uL Immature Gran # (Auto) (0.00-0.02) K/uL Absolute Nucleated RBC (0-0) K/uL Nucleated RBC % (auto) % Sample Site Art Line POC pH 7.24 L (7.35-7.45) POC pCO2 61 H (35-46) mmHg POC pO2 84 (80-95) mmHg POC HCO3 26 H (19-24) rosalind/L POC Total CO2 27 (24-31) mmol/L POC Base Excess -2.0 (-9-1.8) rosalind/L ABG pH (Temp Correct) 7.239 L (7.35-7.45) ABG pCO2 (Temp Corrct 60 H (35-46) mmHg POC ABG pO2 at Pt Temp 82 POC ABG O2 Sat 94.0 (90-95) % Berto Test NA O2 Delivery Device Ventilator POC O2 Rate 26 Minute Ventilation 9.2 POC FiO2 100 % Tidal Volume 360 PEEP 8 IPAP POC Sodium 142 (135-144) mmol/L Sodium 143 (136-145) mmol/L POC Potassium 4.0 (3.3-5.0) mmol/L Potassium 4.1 (3.5-5.1) mmol/L Chloride 109 H (98-107) mmol/L Carbon Dioxide 23 (21-32) mmol/L Anion Gap 11 (3-11) BUN 73 H (6-23) mg/dl Creatinine 1.73 H (0.6-1.2) mg/dl Est Cr Clr Drug Dosing 31.9 ml/min Est GFR ( Amer) 34.8 ml/min Est GFR (Non-Af Amer) 30.0 ml/min BUN/Creatinine Ratio 42.2 H (10-20) Glucose 99 (70-99(Fasting)) mg/dl POC Glucose (70-99) mg/dl Lactate 0.2 L (0.4-2.0) mmol/L Calcium 9.4 (8.5-10.1) mg/dl Phosphorus 3.7 (2.5-4.9) mg/dl Magnesium 2.0 (1.7-2.4) mg/dl Total Bilirubin (0.2-1.0) mg/dl Direct Bilirubin (0-0.2) mg/dl AST (13-39) U/L ALT (7-52) U/L Alkaline Phosphatase (34-104) U/L Total Creatine Kinase (26-192) U/L Total Protein (6.0-8.3) gm/dl Albumin (3.4-5.0) gm/dl Procalcitonin (0-0.5) ng/ml Random Vancomycin (10-20) mcg/ml 02/27/22 02/27/22 02/27/22 Range/Units 22:14 20:36 20:35 WBC 14.88 H (4.8-10.8) K/uL RBC 3.53 L (4.2-5.4) M/uL Hgb 10.1 L (12.0-16.0) g/dL POC Hgb 9.2 L (12.0-16.0) g/dl Hct 31.4 L (37-47) % POC Hct 27 L (37-47) % MCV 89.0 (80-100) fL MCH 28.6 (25-34) pg MCHC 32.2 (32-36) g/dL RDW Std Deviation 46.6 H (36.4-46.3) fL RDW Coeff of Ana 14.4 (11.5-14.5) % Plt Count 152 (130-400) K/uL MPV 10.5 H (7.4-10.4) fL Immature Gran % (Auto) 0.4 % Neut % (Auto) 74.6 % Lymph % (Auto) 17.3 % [place] % (Auto) 7.1 % Eos % (Auto) 0.5 % Baso % (Auto) 0.1 % Neut # (Auto) 11.09 H (1.4-6.5) K/uL Lymph # (Auto) 2.57 (1.2-3.4) K/uL [place] # (Auto) 1.06 H (0.11-0.59) K/uL Eos # (Auto) 0.08 (0-0.5) K/uL Baso # (Auto) 0.02 (0-0.2) K/uL Immature Gran # (Auto) 0.06 H (0.00-0.02) K/uL Absolute Nucleated RBC 0.03 H (0-0) K/uL Nucleated RBC % (auto) 0.2 % Sample Site R Radial POC pH 7.20 L (7.35-7.45) POC pCO2 65 H (35-46) mmHg POC pO2 91 (80-95) mmHg POC HCO3 25 H (19-24) rosalind/L POC Total CO2 27 (24-31) mmol/L POC Base Excess -3.0 (-9-1.8) rosalind/L ABG pH (Temp Correct) 7.209 L (7.35-7.45) ABG pCO2 (Temp Corrct 63 H (35-46) mmHg POC ABG pO2 at Pt Temp 89 POC ABG O2 Sat 95.0 (90-95) % Berto Test Pass O2 Delivery Device Ventilator POC O2 Rate 24 Minute Ventilation 7.9 POC FiO2 90 % Tidal Volume 330 PEEP 8 IPAP POC Sodium 141 (135-144) mmol/L Sodium (136-145) mmol/L POC Potassium 4.0 (3.3-5.0) mmol/L Potassium (3.5-5.1) mmol/L Chloride (98-107) mmol/L Carbon Dioxide (21-32) mmol/L Anion Gap (3-11) BUN (6-23) mg/dl Creatinine (0.6-1.2) mg/dl Est Cr Clr Drug Dosing ml/min Est GFR ( Amer) ml/min Est GFR (Non-Af Amer) ml/min BUN/Creatinine Ratio (10-20) Glucose (70-99(Fasting)) mg/dl POC Glucose 97 (70-99) mg/dl Lactate (0.4-2.0) mmol/L Calcium (8.5-10.1) mg/dl Phosphorus (2.5-4.9) mg/dl Magnesium (1.7-2.4) mg/dl Total Bilirubin (0.2-1.0) mg/dl Direct Bilirubin (0-0.2) mg/dl AST (13-39) U/L ALT (7-52) U/L Alkaline Phosphatase (34-104) U/L Total Creatine Kinase (26-192) U/L Total Protein (6.0-8.3) gm/dl Albumin (3.4-5.0) gm/dl Procalcitonin (0-0.5) ng/ml Random Vancomycin (10-20) mcg/ml 02/27/22 02/27/22 02/27/22 Range/Units 18:35 18:24 13:13 WBC (4.8-10.8) K/uL RBC (4.2-5.4) M/uL Hgb (12.0-16.0) g/dL POC Hgb (12.0-16.0) g/dl Hct (37-47) % POC Hct (37-47) % MCV (80-100) fL MCH (25-34) pg MCHC (32-36) g/dL RDW Std Deviation (36.4-46.3) fL RDW Coeff of Ana (11.5-14.5) % Plt Count (130-400) K/uL MPV (7.4-10.4) fL Immature Gran % (Auto) % Neut % (Auto) % Lymph % (Auto) % [place] % (Auto) % Eos % (Auto) % Baso % (Auto) % Neut # (Auto) (1.4-6.5) K/uL Lymph # (Auto) (1.2-3.4) K/uL [place] # (Auto) (0.11-0.59) K/uL Eos # (Auto) (0-0.5) K/uL Baso # (Auto) (0-0.2) K/uL Immature Gran # (Auto) (0.00-0.02) K/uL Absolute Nucleated RBC (0-0) K/uL Nucleated RBC % (auto) % Sample Site R Radial R Radial POC pH 7.23 L 7.23 L (7.35-7.45) POC pCO2 57 H 59 H (35-46) mmHg POC pO2 71 L 65 L (80-95) mmHg POC HCO3 24 24 (19-24) rosalind/L POC Total CO2 25 26 (24-31) mmol/L POC Base Excess -4.0 -3.0 (-9-1.8) rosalind/L ABG pH (Temp Correct) (7.35-7.45) ABG pCO2 (Temp Corrct (35-46) mmHg POC ABG pO2 at Pt Temp POC ABG O2 Sat 90.0 87.0 L (90-95) % Berto Test Pass Pass O2 Delivery Device BIPAP BIPAP POC O2 Rate 24 24 Minute Ventilation POC FiO2 50 30 % Tidal Volume PEEP IPAP 20 20 POC Sodium (135-144) mmol/L Sodium (136-145) mmol/L POC Potassium (3.3-5.0) mmol/L Potassium (3.5-5.1) mmol/L Chloride (98-107) mmol/L Carbon Dioxide (21-32) mmol/L Anion Gap (3-11) BUN (6-23) mg/dl Creatinine (0.6-1.2) mg/dl Est Cr Clr Drug Dosing ml/min Est GFR ( Amer) ml/min Est GFR (Non-Af Amer) ml/min BUN/Creatinine Ratio (10-20) Glucose (70-99(Fasting)) mg/dl POC Glucose 86 (70-99) mg/dl Lactate (0.4-2.0) mmol/L Calcium (8.5-10.1) mg/dl Phosphorus (2.5-4.9) mg/dl Magnesium (1.7-2.4) mg/dl Total Bilirubin (0.2-1.0) mg/dl Direct Bilirubin (0-0.2) mg/dl AST (13-39) U/L ALT (7-52) U/L Alkaline Phosphatase (34-104) U/L Total Creatine Kinase (26-192) U/L Total Protein (6.0-8.3) gm/dl Albumin (3.4-5.0) gm/dl Procalcitonin (0-0.5) ng/ml Random Vancomycin (10-20) mcg/ml 02/27/22 Range/Units 13:11 WBC (4.8-10.8) K/uL RBC (4.2-5.4) M/uL Hgb (12.0-16.0) g/dL POC Hgb (12.0-16.0) g/dl Hct (37-47) % POC Hct (37-47) % MCV (80-100) fL MCH (25-34) pg MCHC (32-36) g/dL RDW Std Deviation (36.4-46.3) fL RDW Coeff of Ana (11.5-14.5) % Plt Count (130-400) K/uL MPV (7.4-10.4) fL Immature Gran % (Auto) % Neut % (Auto) % Lymph % (Auto) % [place] % (Auto) % Eos % (Auto) % Baso % (Auto) % Neut # (Auto) (1.4-6.5) K/uL Lymph # (Auto) (1.2-3.4) K/uL [place] # (Auto) (0.11-0.59) K/uL Eos # (Auto) (0-0.5) K/uL Baso # (Auto) (0-0.2) K/uL Immature Gran # (Auto) (0.00-0.02) K/uL Absolute Nucleated RBC (0-0) K/uL Nucleated RBC % (auto) % Sample Site POC pH (7.35-7.45) POC pCO2 (35-46) mmHg POC pO2 (80-95) mmHg POC HCO3 (19-24) rosalind/L POC Total CO2 (24-31) mmol/L POC Base Excess (-9-1.8) rosalind/L ABG pH (Temp Correct) (7.35-7.45) ABG pCO2 (Temp Corrct (35-46) mmHg POC ABG pO2 at Pt Temp POC ABG O2 Sat (90-95) % Berto Test O2 Delivery Device POC O2 Rate Minute Ventilation POC FiO2 % Tidal Volume PEEP IPAP POC Sodium (135-144) mmol/L Sodium (136-145) mmol/L POC Potassium (3.3-5.0) mmol/L Potassium (3.5-5.1) mmol/L Chloride (98-107) mmol/L Carbon Dioxide (21-32) mmol/L Anion Gap (3-11) BUN (6-23) mg/dl Creatinine (0.6-1.2) mg/dl Est Cr Clr Drug Dosing ml/min Est GFR ( Amer) ml/min Est GFR (Non-Af Amer) ml/min BUN/Creatinine Ratio (10-20) Glucose (70-99(Fasting)) mg/dl POC Glucose 98 (70-99) mg/dl Lactate (0.4-2.0) mmol/L Calcium (8.5-10.1) mg/dl Phosphorus (2.5-4.9) mg/dl Magnesium (1.7-2.4) mg/dl Total Bilirubin (0.2-1.0) mg/dl Direct Bilirubin (0-0.2) mg/dl AST (13-39) U/L ALT (7-52) U/L Alkaline Phosphatase (34-104) U/L Total Creatine Kinase (26-192) U/L Total Protein (6.0-8.3) gm/dl Albumin (3.4-5.0) gm/dl Procalcitonin (0-0.5) ng/ml Random Vancomycin (10-20) mcg/ml Resident Activity Tracking Resident Involvement: Resident Care Provided Care Provided: Adult Hospital Medicine
--- NOTE | 2022-02-28 08:15 | Procedure Note ---
Procedure Note: Bronchoscopy Procedure PREOPERATIVE DIAGNOSIS: Right lower lobe collapse POSTOPERATIVE DIAGNOSIS: Right lower lobe collapse PROCEDURE PERFORMED: Flexible fiberoptic bronchoscopy with bronchoalveolar lavage COMPLICATIONS: None. INDICATION: Right lower lobe collapse PROCEDURE: Telephone consent was obtained from the son. Patient was already intubated and in the ICU room. Oxygen saturation and vitals were monitored as per the protocol. Subsequent to this, the patient was premedicated with 50 MCG of fentanyl. She was already on propofol 20 MCG per hour which was continued The trachea appeared normal.The bronchoscope was then advanced through the erik, which was sharp. The scope was then advanced into the right main stem, secretion were appreciated at the right main as well as the right middle lobe and right lower lobe. After suctioning them clear each segment, subsegement in the right upper lobe, right middle lobe and right lower lobe were visualized. Right upper lobe had bifurcation. There was a moderate amount of grayish secretions which were suctioned out there were no other findings including evidence of mass, anatomic distortions, or hemorrhage. The bronchoscope was subsequently withdrawn and advanced into the left mainstem. Again, each segment and subsegment was well visualized. No specific masses or other lesions were identified throughout the tracheobronchial tree on the left. There were minimal amount of clear secretion which was suctioned out The bronchoscope was then wedged in the right lower lobe anterior segment and bronchoalveolar lavage samples were obtained. 120 ml of saline was instilled and 30 ml of fluid was aspirated back.The bronchoscope was withdrawn and the area was suctioned clear. The bronchoscope was then withdrawn to the mainstem. The area was suctioned clear. The bronchoscope was then withdrawn. The patient tolerated the procedure well without evidence of desaturation or complications. Bronchoalveolar lavage samples were sent for cell count, Gram stain and bacterial culture, AFB culture and smear, fungal culture and smear and cytology. Recommendations: Follow-up chest x-ray and micro Please note the above document was generated using voice recognition software. It may contain grammatical, syntax or spelling errors.Any formal questions or concerns about the content, text or information contained within the body of this dictation should be directly addressed to the provider for clarification. [facility] [place] Codes (Charges) Pulmonary/Thoracic Procedure 1: Pulmonary and Thoracic: 14332 Bronchoscopy, clear airways
[2022-02-28] MEDS: hydrALAZINE TAB 50 MG TAB PO SCH (08:24)
[2022-02-28] MEDS: BUDESONIDE 0.25 MG/2 ML VIAL (PULMICORT) NEB SCH ×2 (08:26→19:54)
[2022-02-28] MEDS: FORMOTEROL 20 MCG/2 ML VIAL NEB SCH ×2 (08:27→19:54)
--- NOTE | 2022-02-28 08:38 | XRay Report ---
XR chest 1V portable CLINICAL HISTORY: Dyspnea TECHNIQUE: Single frontal radiograph of the chest was obtained. Comparison: Comparison is made to chest radiograph 02/27/2022 FINDINGS: Lines and tubes are stable. Stable rightward mediastinal shift. Emphysematous changes are seen and th ere is blunting of the right costophrenic angle which may represent a small effusion or scarring. IMPRESSION: Stable exam. No airspace opacities, chronic findings as above. ACT 112: Negative or not required by law. Electronically signed by: Jean-Pierre Milian M.D. 02/28/2022 8:36 AM
--- NOTE | 2022-02-28 08:39 | XRay Report ---
XR chest 1V portable CLINICAL HISTORY: Post Bronchoscopy TECHNIQUE: Single frontal radiograph of the chest was obtained. Comparison: Comparison is made to chest radiograph 02/28/2022 FINDINGS: Lines and tubes are stable. Rightward mediastinal shift is noted. Opacification of the right lower lo be is again noted. Pneumothorax is seen. Small bilateral pleural effusions cannot be excluded. IMPRESSION: 1. No evidence of pneumothorax status post bronchoscopy. 2. Right lower lobe remains opacified. ACT 112: Negative or not required by law. Electronically signed by: Jean-Pierre Milian M.D. 02/28/2022 8:38 AM
[2022-02-28] MEDS: VALPROATE SOD 500 MG in DEXTROSE 5% 50 ML IV SCH ×2 (08:47→21:10)
[2022-02-28] MEDS: NOREPINEPHRINE/D5W 4 MG/250 ML PLCT IV SCH (08:51)
[2022-02-28 09:27] LABS: Eosinophil Body Fluid Man 0 %; Fluid Mono/Macrophage 8 %; Lymphocyte Body Fluid Man 2 %; Neutrophil Body Fluid Man 90 %
[2022-02-28] MEDS: NORMOSOL-R 1,000 ML IV SCH (09:44)
--- NOTE | 2022-02-28 09:50 | Hospitalist Progress Note ---
Date of Service February 28, 2022 Assessment & Plan (1) Aspiration pneumonia: Plan: CT chest last night with severe secretions/debris in RLL airway (and to lesser degree the LLL bronchus). CXR with evidence of RLL pneumonia. She developed aspiration pneumonia while on cefepime/doxy - thus, abx changed to IV zosyn. (2) Acute on chronic respiratory failure with hypoxia and hypercapnia: Plan: Recurrent, severe acute respiratory acidosis/elevated pCO2 on 02/27 with resumption of BIPAP. She is on baseline O2 at home, ~4-6 liters. Despite 24+ hours of escalating BIPAP her hypercapnea did not resolve. Thus, she was intubated 02/27. Remains vented at this time. s/p bronch this am. Has developed aspiration pneumonia in the last 48 hours likely the cause of her recurrent hypercapnea. (3) Hypothermia: Plan: Retrospectively was likely due to developing pneumonia. Resolved. (4) Acute metabolic encephalopathy: Plan: 2nd to severe respiratory acidosis & hypothermia. MRI brain from earlier in the stay noted. Acidosis resolving. Hypothermia resolved. supportive care. (5) Empty sella: Plan: Seen on MRI brain earlier this admission. In light of recurrent sepsis-like picture, resp failure, low BP, etc -- checked TSH, FT4, and cortisol - all wnl. (6) Acute kidney injury: Plan: Likely ATN from prerenal causes (poor PO intake over the last few days, etc). Can't rule out contrast nephropathy from CT contrast. Obstruction ruled out with negative CT a/p. Creatinine is improving. Cont supportive care and daily BMP. (7) Hypomagnesemia: Plan: repleted resolved (8) Seizure-like activity: Plan: Reported and witnessed by EMS just prior to admission. EEG without seizure activity. MRI brain negative. Exact etiology uncertain. Seen by neurology earlier this stay - depakote advised. Due to NPO status changed depakote to IV valproic acid. (9) Sepsis: Plan: Treated for such early in the stay. Thought to be have maxillary sinusitis and mastoiditis (although no clinical evidence of latter on exam). Meningitis ruled out early in stay s/p normal LP. Had been on cefepime + doxycycline since earlier in the stay. Developed aspiration pneumonia while on these 2 antibiotics. Cefepime/doxy stopped - she is now on zosyn. blood cx's remain negative. (10) Chronic kidney disease, stage 3a: Plan: baseline CrCl 50-60 now with GERALD BMP in am (11) Obesity: Plan: BMI 30 (12) Hypertension: Plan: Hold anti-hypertensives. Now with low BP in setting of sedation for the vent. (13) COPD (chronic obstructive pulmonary disease): Plan: Deferring on steroids at this time. (14) Elevated troponin: Plan: Peak HS trop was 187 earlier in stay -- likely 2nd to myocardial demand ischemia in setting of respiratory failure. (15) Sinusitis: Plan: Aggressively treated with broad-spectrum IV abx early this stay - at least 7+ days. (16) Mastoiditis: Plan: b/l - seen on MRI brain. clinically - no evidence of such - no inflammation/swelling/tenderness over either mastoid; ears symmetric; etc. follow. (17) Pulmonary nodules: Plan: Right lower lobe nodule seen on CT chest earlier in the stay. Follow-up CT chest 3 months. (18) DVT prophylaxis: Plan: heparin 5000 TID Plan: sonRuddy, extensively updated by phone yesterday pm care dw Dr Latham Admission and Anticipated Discharge Date Admission Date: February 20, 2022 Subjective events of last 24 hours noted patient was intubated late last evening due to refractory hypercapnea despite use of BIPAP for 24+ hours had had ongoing altered mental status from such during rounds she was sedated spoke with Dr Latham - he performed bronch this am due to suspected developing RLL aspiration pneumonia Review of Systems Review of Systems: Unobtainable due to endotracheal tube Physical Exam Physical Exam: gen - intubated, sedated mouth - ETT in place eyes - PERRL, about 1-2 mm b/l neck - no JVD heart - RRR, s1 s2, no murmur lungs - decreased BS right base, CTA right apex; left lung clear; no increased work of breathing abd - soft, NT, BS+ ext - no edema, pulses 2+ b/l skin - left chest central line intact Results & Data Results & Data ([facility]) Vital Signs (Past 12 Hours) Vital Signs Temp Pulse Resp BP Pulse Ox 02/28/22 08:00 65 02/28/22 07:01 37.2 C 74 26 H 157/83 H 99 02/28/22 06:30 37.2 C 68 26 H 114/60 98 02/28/22 06:00 37.2 C 60 26 H 139/62 98 02/28/22 05:30 37.1 C 66 26 H 129/68 97 02/28/22 05:00 37.2 C 67 26 H 120/63 97 02/28/22 04:30 37.2 C 67 26 H 118/58 L 97 02/28/22 04:00 37.1 C 68 26 H 114/52 L 95 02/28/22 03:35 68 27 H 97 02/28/22 03:30 37.1 C 63 26 H 155/79 H 99 02/28/22 03:00 37.0 C 60 26 H 149/81 H 98 02/28/22 02:30 36.9 C 59 L 26 H 141/70 H 99 02/28/22 02:00 36.8 C 61 26 H 136/78 97 02/28/22 01:30 36.7 C 69 26 H 109/73 97 02/28/22 01:00 36.7 C 70 26 H 127/92 92 02/28/22 00:30 36.6 C 76 26 H 125/69 96 02/28/22 00:00 36.7 C 73 26 H 151/82 H 96 02/27/22 23:30 36.7 C 74 26 H 148/90 H 94 02/27/22 23:00 36.7 C 63 26 H 137/70 94 02/27/22 22:58 88 26 H 94 02/27/22 22:30 36.7 C 76 26 H 118/71 98 02/27/22 22:00 36.6 C 74 26 H 101/52 L 95 Laboratory Results Laboratory Results - last 24 hr 02/27/22 02/27/22 02/27/22 13:11 13:13 18:24 WBC RBC Hgb POC Hgb Hct POC Hct MCV MCH MCHC RDW Std Deviation RDW Coeff of Ana Plt Count MPV Immature Gran % (Auto) Neut % (Auto) Lymph % (Auto) Glenn % (Auto) Eos % (Auto) Baso % (Auto) Neut # (Auto) Lymph # (Auto) Glenn # (Auto) Eos # (Auto) Baso # (Auto) Immature Gran # (Auto) Absolute Nucleated RBC Nucleated RBC % (auto) Sample Site R Radial POC pH 7.23 L POC pCO2 59 H POC pO2 65 L POC HCO3 24 POC Total CO2 26 POC Base Excess -3.0 ABG pH (Temp Correct) ABG pCO2 (Temp Corrct POC ABG pO2 at Pt Temp POC ABG O2 Sat 87.0 L Berto Test Pass O2 Delivery Device BIPAP POC O2 Rate 24 Minute Ventilation POC FiO2 30 Tidal Volume PEEP IPAP 20 POC Sodium Sodium POC Potassium Potassium Chloride Carbon Dioxide Anion Gap BUN Creatinine Est Cr Clr Drug Dosing Est GFR ( Amer) Est GFR (Non-Af Amer) BUN/Creatinine Ratio Glucose POC Glucose 98 86 Lactate Calcium Phosphorus Magnesium Total Bilirubin Direct Bilirubin AST ALT Alkaline Phosphatase Total Creatine Kinase Total Protein Albumin Procalcitonin Fluid Neutrophils % Fluid Lymphocytes % Fluid Eosinophils % Fl Monocyt/Macrophag % Fluid Comment Random Vancomycin 02/27/22 02/27/22 02/27/22 18:35 20:35 20:36 WBC RBC Hgb POC Hgb 9.2 L Hct POC Hct 27 L MCV MCH MCHC RDW Std Deviation RDW Coeff of Ana Plt Count MPV Immature Gran % (Auto) Neut % (Auto) Lymph % (Auto) Glenn % (Auto) Eos % (Auto) Baso % (Auto) Neut # (Auto) Lymph # (Auto) Glenn # (Auto) Eos # (Auto) Baso # (Auto) Immature Gran # (Auto) Absolute Nucleated RBC Nucleated RBC % (auto) Sample Site R Radial R Radial POC pH 7.23 L 7.20 L POC pCO2 57 H 65 H POC pO2 71 L 91 POC HCO3 24 25 H POC Total CO2 25 27 POC Base Excess -4.0 -3.0 ABG pH (Temp Correct) 7.209 L ABG pCO2 (Temp Corrct 63 H POC ABG pO2 at Pt Temp 89 POC ABG O2 Sat 90.0 95.0 Berto Test Pass Pass O2 Delivery Device BIPAP Ventilator POC O2 Rate 24 24 Minute Ventilation 7.9 POC FiO2 50 90 Tidal Volume 330 PEEP 8 IPAP 20 POC Sodium 141 Sodium POC Potassium 4.0 Potassium Chloride Carbon Dioxide Anion Gap BUN Creatinine Est Cr Clr Drug Dosing Est GFR ( Amer) Est GFR (Non-Af Amer) BUN/Creatinine Ratio Glucose POC Glucose 97 Lactate Calcium Phosphorus Magnesium Total Bilirubin Direct Bilirubin AST ALT Alkaline Phosphatase Total Creatine Kinase Total Protein Albumin Procalcitonin Fluid Neutrophils % Fluid Lymphocytes % Fluid Eosinophils % Fl Monocyt/Macrophag % Fluid Comment Random Vancomycin 02/27/22 02/27/22 02/27/22 22:14 22:14 22:14 WBC 14.88 H RBC 3.53 L Hgb 10.1 L POC Hgb Hct 31.4 L POC Hct MCV 89.0 MCH 28.6 MCHC 32.2 RDW Std Deviation 46.6 H RDW Coeff of Ana 14.4 Plt Count 152 MPV 10.5 H Immature Gran % (Auto) 0.4 Neut % (Auto) 74.6 Lymph % (Auto) 17.3 Glenn % (Auto) 7.1 Eos % (Auto) 0.5 Baso % (Auto) 0.1 Neut # (Auto) 11.09 H Lymph # (Auto) 2.57 Glenn # (Auto) 1.06 H Eos # (Auto) 0.08 Baso # (Auto) 0.02 Immature Gran # (Auto) 0.06 H Absolute Nucleated RBC 0.03 H Nucleated RBC % (auto) 0.2 Sample Site POC pH POC pCO2 POC pO2 POC HCO3 POC Total CO2 POC Base Excess ABG pH (Temp Correct) ABG pCO2 (Temp Corrct POC ABG pO2 at Pt Temp POC ABG O2 Sat Berto Test O2 Delivery Device POC O2 Rate Minute Ventilation POC FiO2 Tidal Volume PEEP IPAP POC Sodium Sodium 143 POC Potassium Potassium 4.1 Chloride 109 H Carbon Dioxide 23 Anion Gap 11 BUN 73 H Creatinine 1.73 H Est Cr Clr Drug Dosing 31.9 Est GFR ( Amer) 34.8 Est GFR (Non-Af Amer) 30.0 BUN/Creatinine Ratio 42.2 H Glucose 99 POC Glucose Lactate 0.2 L Calcium 9.4 Phosphorus 3.7 Magnesium 2.0 Total Bilirubin Direct Bilirubin AST ALT Alkaline Phosphatase Total Creatine Kinase Total Protein Albumin Procalcitonin Fluid Neutrophils % Fluid Lymphocytes % Fluid Eosinophils % Fl Monocyt/Macrophag % Fluid Comment Random Vancomycin 02/27/22 02/28/22 02/28/22 22:29 03:55 05:23 WBC RBC Hgb POC Hgb 9.5 L 9.2 L Hct POC Hct 28 L 27 L MCV MCH MCHC RDW Std Deviation RDW Coeff of Ana Plt Count MPV Immature Gran % (Auto) Neut % (Auto) Lymph % (Auto) Glenn % (Auto) Eos % (Auto) Baso % (Auto) Neut # (Auto) Lymph # (Auto) Glenn # (Auto) Eos # (Auto) Baso # (Auto) Immature Gran # (Auto) Absolute Nucleated RBC Nucleated RBC % (auto) Sample Site Art Line Art Line POC pH 7.24 L 7.27 L POC pCO2 61 H 51 H POC pO2 84 62 L POC HCO3 26 H 23 POC Total CO2 27 25 POC Base Excess -2.0 -4.0 ABG pH (Temp Correct) 7.239 L 7.267 L ABG pCO2 (Temp Corrct 60 H 51 H POC ABG pO2 at Pt Temp 82 63 POC ABG O2 Sat 94.0 88.0 L Berto Test NA NA O2 Delivery Device Ventilator Ventilator POC O2 Rate 26 26 Minute Ventilation 9.2 9.3 POC FiO2 100 70 Tidal Volume 360 360 PEEP 8 8 IPAP POC Sodium 142 139 Sodium POC Potassium 4.0 3.6 Potassium Chloride Carbon Dioxide Anion Gap BUN Creatinine Est Cr Clr Drug Dosing Est GFR ( Amer) Est GFR (Non-Af Amer) BUN/Creatinine Ratio Glucose POC Glucose Lactate Calcium Phosphorus Magnesium Total Bilirubin Direct Bilirubin AST ALT Alkaline Phosphatase Total Creatine Kinase Total Protein Albumin Procalcitonin Fluid Neutrophils % Fluid Lymphocytes % Fluid Eosinophils % Fl Monocyt/Macrophag % Fluid Comment Random Vancomycin 22.3 H 02/28/22 02/28/22 02/28/22 05:23 05:23 05:23 WBC 15.36 H RBC 3.28 L Hgb 9.3 L POC Hgb Hct 28.7 L POC Hct MCV 87.5 MCH 28.4 MCHC 32.4 RDW Std Deviation 45.8 RDW Coeff of Ana 14.4 Plt Count 129 L MPV 10.4 Immature Gran % (Auto) 0.3 Neut % (Auto) 72.2 Lymph % (Auto) 17.9 Glenn % (Auto) 8.0 Eos % (Auto) 1.5 Baso % (Auto) 0.1 Neut # (Auto) 11.08 H Lymph # (Auto) 2.75 Glenn # (Auto) 1.23 H Eos # (Auto) 0.23 Baso # (Auto) 0.02 Immature Gran # (Auto) 0.05 H Absolute Nucleated RBC 0.05 H Nucleated RBC % (auto) 0.3 Sample Site POC pH POC pCO2 POC pO2 POC HCO3 POC Total CO2 POC Base Excess ABG pH (Temp Correct) ABG pCO2 (Temp Corrct POC ABG pO2 at Pt Temp POC ABG O2 Sat Berto Test O2 Delivery Device POC O2 Rate Minute Ventilation POC FiO2 Tidal Volume PEEP IPAP POC Sodium Sodium 141 POC Potassium Potassium 3.6 Chloride 108 H Carbon Dioxide 23 Anion Gap 10 BUN 70 H Creatinine 1.64 H Est Cr Clr Drug Dosing 33.7 Est GFR ( Amer) 37.1 Est GFR (Non-Af Amer) 32.0 BUN/Creatinine Ratio 42.7 H Glucose 101 H POC Glucose Lactate Calcium 9.0 Phosphorus 2.8 Magnesium 2.0 Total Bilirubin 0.3 Direct Bilirubin 0.1 AST 21 ALT 16 Alkaline Phosphatase 38 Total Creatine Kinase 49 Total Protein 4.8 L Albumin 2.8 L Procalcitonin 0.06 Fluid Neutrophils % Fluid Lymphocytes % Fluid Eosinophils % Fl Monocyt/Macrophag % Fluid Comment Random Vancomycin 02/28/22 02/28/22 05:25 08:15 WBC RBC Hgb POC Hgb Hct POC Hct MCV MCH MCHC RDW Std Deviation RDW Coeff of Ana Plt Count MPV Immature Gran % (Auto) Neut % (Auto) Lymph % (Auto) Glenn % (Auto) Eos % (Auto) Baso % (Auto) Neut # (Auto) Lymph # (Auto) Glenn # (Auto) Eos # (Auto) Baso # (Auto) Immature Gran # (Auto) Absolute Nucleated RBC Nucleated RBC % (auto) Sample Site POC pH POC pCO2 POC pO2 POC HCO3 POC Total CO2 POC Base Excess ABG pH (Temp Correct) ABG pCO2 (Temp Corrct POC ABG pO2 at Pt Temp POC ABG O2 Sat Berto Test O2 Delivery Device POC O2 Rate Minute Ventilation POC FiO2 Tidal Volume PEEP IPAP POC Sodium Sodium POC Potassium Potassium Chloride Carbon Dioxide Anion Gap BUN Creatinine Est Cr Clr Drug Dosing Est GFR ( Amer) Est GFR (Non-Af Amer) BUN/Creatinine Ratio Glucose POC Glucose 108 H Lactate Calcium Phosphorus Magnesium Total Bilirubin Direct Bilirubin AST ALT Alkaline Phosphatase Total Creatine Kinase Total Protein Albumin Procalcitonin Fluid Neutrophils % 90 Fluid Lymphocytes % 2 Fluid Eosinophils % 0 Fl Monocyt/Macrophag % 8 Fluid Comment Random Vancomycin Diagnostic Findings Chest X-Ray 02/28/22 07:00 XR chest 1V portable CLINICAL HISTORY: Dyspnea TECHNIQUE: Single frontal radiograph of the chest was obtained. Comparison: Comparison is made to chest radiograph 02/27/2022 FINDINGS: Lines and tubes are stable. Stable rightward mediastinal shift. Emphysematous changes are seen and there is blunting of the right costophrenic angle which may represent a small effusion or scarring. IMPRESSION: Stable exam. No airspace opacities, chronic findings as above. ACT 112: Negative or not required by law. Electronically signed by: Jean-Pierre Milian M.D. 02/28/2022 8:36 AM Chest X-Ray 02/28/22 08:16 XR chest 1V portable CLINICAL HISTORY: Post Bronchoscopy TECHNIQUE: Single frontal radiograph of the chest was obtained. Comparison: Comparison is made to chest radiograph 02/28/2022 FINDINGS: Lines and tubes are stable. Rightward mediastinal shift is noted. Opacification of the right lower lobe is again noted. Pneumothorax is seen. Small bilateral pleural effusions cannot be excluded. IMPRESSION: 1. No evidence of pneumothorax status post bronchoscopy. 2. Right lower lobe remains opacified. ACT 112: Negative or not required by law. Electronically signed by: Jean-Pierre Milian M.D. 02/28/2022 8:38 AM PG Care Time/CCT Total # of Minutes Spent Total Time Spent with Patient: Total time spent is greater than 50% in coordination of care (as documented) at patient's floor/unit and/or counseling patient: Coding Level of Care Code 01202 Subseq Hosp Care Lvl 1 Diagnoses Acute on chronic respiratory failure with hypoxia and hypercapnia J96.21; J96.22 Hypothermia T68.XXXA Acute metabolic encephalopathy G93.41 Empty sella E23.6 Acute kidney injury N17.9 Hypomagnesemia E83.42 Seizure-like activity R56.9 Sepsis A41.9 Chronic kidney disease, stage 3a N18.31 Obesity E66.9 Hypertension I10 COPD (chronic obstructive pulmonary disease) J44.9 COPD type: unspecified COPD Elevated troponin R77.8 Sinusitis J32.9 Mastoiditis H70.90 Pulmonary nodules R91.8 DVT prophylaxis Z29.9 Aspiration pneumonia J69.0 (1) COPD (chronic obstructive pulmonary disease) COPD type: unspecified COPD Qualified Code(s): J44.9 - Chronic obstructive pulmonary disease, unspecified
[2022-02-28] MEDS: PANTOprazole 40 MG in SYRINGE 0 ML IV SCH (11:18)
[2022-02-28 11:31] LABS: iSTAT Allen Test Pass; iSTAT Arterial Blood Gas HCO3 23 meg/L (19-24); iSTAT Arterial Blood Gas pCO2 46 mmHg (35-46); iSTAT Arterial Blood Gas pH 7.31 (7.35-7.45); iSTAT Arterial Blood Gas pO2 59 mmHg (80-95); iSTAT Carbon Dioxide 24 mmol/L (24-31); iSTAT FiO2 50 %; iSTAT Site Art Line
--- NOTE | 2022-02-28 12:23 | Billing Data ---
Date of Service February 28, 2022 Coding Level of Care Code Critical Care 1st 30-74 mins Time Spent (min) 40
[2022-02-28] MEDS ORDERED: NOVASOURCE RENAL 2.0 CAL 1000ML BAG GT SCH (14:00)
[2022-02-28] MEDS ORDERED: NOVASOURCE RENAL 2.0 CAL 1000ML BAG OG SCH (14:12)
[2022-02-28] MEDS: TUBE FEEDING WATER FLUSH OG SCH ×2 (14:40→19:29)
[2022-02-28] MEDS ORDERED: VANCOMYCIN HCL 1,000 MG in SODIUM CHLORIDE 0.9% 250 ML IV SCH (16:00)
[2022-02-28] MEDS ORDERED: POTASSIUM CHLORIDE / WTR 20 MEQ/100 ML PLCT IV ONE (18:30)
[2022-02-28] MEDS: SENNOSIDES 8.8 MG/5 ML UDC PO SCH (21:10)
[2022-03-01] MEDS: INSULIN ASPART PER UNIT SC SCH ×5 (00:09→23:54)
[2022-03-01] MEDS: NORMOSOL-R 1,000 ML IV SCH (03:42)
[2022-03-01 04:30] LABS: iSTAT Art Bld Gas pCO2 Correct 51 mmHg (35-46); iSTAT Art Bld Gas pH Corrected 7.303 (7.35-7.45); iSTAT Arterial Blood Gas HCO3 25 meg/L (19-24); iSTAT Arterial Blood Gas pCO2 51 mmHg (35-46); iSTAT Arterial Blood Gas pO2 62 mmHg (80-95); iSTAT Arterial Blood Gas pO2 C 62; iSTAT Carbon Dioxide 27 mmol/L (24-31); iSTAT FiO2 40 %; iSTAT Hematocrit 23 % (37-47); iSTAT Hemoglobin 7.8 g/dl (12.0-16.0); iSTAT Potassium 3.4 mmol/L (3.3-5.0); iSTAT Site Art Line; iSTAT Sodium 139 mmol/L (135-144)
[2022-03-01] MEDS: TUBE FEEDING WATER FLUSH OG SCH ×4 (04:54→12:00)
[2022-03-01] MEDS: propofoL 1,000 MG/100 ML VIAL IV SCH (04:54)
[2022-03-01] MEDS: PIPERACILLIN/TAZOBACTAM 3.375 GM in DEXTROSE 5% 100 ML IV SCH ×3 (04:55→21:09)
[2022-03-01 05:00] LABS: Hematocrit (blood only) 26.2 % (37-47); Hemoglobin 8.5 g/dL (12.0-16.0); Mean Corpuscular Hemoglobin 27.7 pg (25-34); Mean Corpuscular Hgb Conc 32.4 g/dL (32-36); Mean Corpuscular Volume 85.3 fL (80-100); Nucleated RBC # (auto) 0.06 K/uL (0-0); Nucleated RBC % (auto) 0.4 %; RDW Coefficient of Variation 14.5 % (11.5-14.5); RDW Standard Deviation 44.8 fL (36.4-46.3); Red Blood Count 3.07 M/uL (4.2-5.4); White Blood Count 15.07 K/uL (4.8-10.8)
[2022-03-01 05:18] LABS: BUN Creatinine Ratio 42.4 (10-20); Creatinine Clr Calc Pharmacy 33.2 ml/min; Est GFR (African American) 35.5 ml/min; Est GFR (Non-African American) 30.7 ml/min; Magnesium 1.9 mg/dl (1.7-2.4); Phosphorus 2.3 mg/dl (2.5-4.9); Potassium 3.2 mmol/L (3.5-5.1)
[2022-03-01] MEDS: HEPARIN SOD 5,000 UNIT/0.5 ML VIAL SQ SCH (05:27)
[2022-03-01 05:41] LABS: Mean Platelet Volume 9.9 fL (7.4-10.4); Platelet Count 82 K/uL (130-400)
[2022-03-01 05:42] LABS: Basophilic Stippling 1+; Basophils # (auto) 0.01 K/uL (0-0.2); Basophils % (auto) 0.1 %; Eosinophils # (auto) 0.17 K/uL (0-0.5); Eosinophils % (auto) 1.1 %; Immature Granulocytes # (auto) 0.06 K/uL (0.00-0.02); Immature Granulocytes % (auto) 0.4 %; Lymphocytes # (auto) 1.54 K/uL (1.2-3.4); Lymphocytes % (auto) 10.2 %; Neutrophils # (auto) 12.09 K/uL (1.4-6.5); Neutrophils % (auto) 80.2 %; Platelet Estimate Decreased (Normal)
[2022-03-01] MEDS ORDERED: POTASSIUM CHLORIDE CRTAB 20 MEQ TABCR PO STA (05:59)
[2022-03-01] MEDS ORDERED: POTASSIUM PHOS 3 MMOL/1 ML INFUSION IV STA ×2 (05:59→07:58)
[2022-03-01] MEDS ORDERED: POTASSIUM PHOSPHATE 9 MMOL in SODIUM CHLORIDE 0.9% 250 ML IV ONE ×2 (06:15→09:00)
[2022-03-01] MEDS ORDERED: POTASSIUM CHLORIDE 20 MEQ/15 ML UDC PO STA (06:32)
--- NOTE | 2022-03-01 07:10 | XRay Report ---
XR chest 1V portable HISTORY: 66 years-old Female f/u acute respiratory failure COMPARISON: Chest radiograph 02/28/2022 TECHNIQUE: Portable AP view of the chest FINDINGS: Endotracheal tube overlies the midline, 2.9 cm superior to the erik. Enteric tube courses into the stomach. Left subclavian central venous catheter distal tip is noted in the expected location of the upper to mid SVC. Suggested skinfold projects over the right lung apex. Suspected trace pleural effus ions. There is persistent right basilar consolidation. Right lung volume loss is also noted along wit h emphysema and chronic interstitial coarsening. The heart is normal in size. Degenerative changes of the shoulders and spine. IMPRESSION: 1. Lines and tubes as above. 2. Persistent right basilar consolidation with right lung volume loss. 3. Emphysema with chronic interstitial coarsening. ACT 112: Negative or not required by law. The above report was generated using voice recognition software. It may contain grammatical, syntax o r spelling errors. Electronically signed by: Bal Wells M.D. 03/01/2022 7:08 AM
[2022-03-01] MEDS: FORMOTEROL 20 MCG/2 ML VIAL NEB SCH ×2 (07:33→19:33)
[2022-03-01] MEDS: BUDESONIDE 0.25 MG/2 ML VIAL (PULMICORT) NEB SCH ×2 (07:33→19:33)
[2022-03-01] MEDS: MAGNESIUM SULFATE / D5W 1 GM/100 ML BAG IV SCH ×2 (08:13→09:59)
[2022-03-01] MEDS: METOPROLOL TARTRATE 1 MG/ML VIAL IV PRN (09:20)
--- NOTE | 2022-03-01 09:32 | Critical Care Progress Note ---
Date of Service March 01, 2022 Assessment & Plan (1) Admitted to intensive care unit: Plan: Reason Critically Ill: 66-year-old female with recurrent acute on chronic hypoxemic respiratory failure with hypercapnia requiring intubation overnight and close monitoring. NEURO - * CAM ICU: POSITIVE * Altered mental status: Secondary to acute hypercapnic respiratory failure * Continue Depakote per neuro recs --> switch to p.o. 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 Metoprolol 5mg IV q4h prn systolic >180. * Gradually resume home antihypertensive medications as tolerated. * Levophed d/c'd * +9L fluid balance since admission, give Lasix 20mg IV x1. * Monitor on telemetry RESPIRATORY - * Acute on chronic hypoxemic respiratory failure with hypercapnia: Poor compliance. Chest x-ray without acute infiltrate. Continue budesonide and Performist BID for history of COPD. * Chest XR (02/28) showed mediastinal shift to right with right lower lobe collapse. Subsequent bronchoscopy showed secretions but not enough to cause collapse. Most likely was due to aspiration pneumonia. * Extubated this morning, now stable on Bipap. If need to reintubate, will consider tracheostomy given this was second intubation. GI/NUTRITION - * N.p.o. while on Bipap. RENAL/LYTES - * GERALD likely from poor p.o. intake. * Hold IVF for now 2/2 fluid overload. * Replete lytes per protocol. Strict I&Os - * Degroot in place - Strict I&Os. ENDO - * DMII * BSGs per unit protocol. ISS --> gtt per unit policy. HEME - * Declining Hgb now 8.5, repeat H&H later today ID - * Repeat blood cultures no growth.Repeat sputum/lavage cx pending. Lumbar puncture from earlier in the hospitalization negative. Prior sputum and blood cultures negative.Repeat urine culture neg.Pro-[place] negative. * Repeat nasal MRSA swab neg. Continue zosyn for suspected pneumonia. LINES/IV ACCESS - * PIVs * LEFT Subclavian CVL --> will remove today if IV team able to make additional PIV * Arterial line removed * Degroot DVT PROPHYLAXIS - * Hold heparin due to decreasing hgb * SCDs Thank you for allowing us to participate in the care of this patient.Please refer to my attending physician's documentation for any further recommendations. (2) Acute on chronic respiratory failure with hypoxia and hypercapnia: (3) Acute metabolic encephalopathy: Admission and Anticipated Discharge Date Admission Date: February 20, 2022 Supervising Physician Co-Signing Physician Notes Dr. Kemp was the resident-physician during care of patient. I separately evaluated patient for jane portions of the history and the exam. I was present during the critical portion of medical decision making, and I discussed the case with the resident. I generally agree with the findings and plan except for any additions/exceptions noted. Patient seen and examined at bedside. No acute distress. Off vasopressor as of yesterday. Patient is following simple commands. Does complain of mild headache. No chest pain, no abdominal pain. Constitutional: No acute distress HEENT: EOMI, PERRLA, positive ETT Respiratory system: Decreased air entry bilaterally, no wheeze, no rhonchi, mild crackles bilaterally CVS: S1-S2 positive, no murmurs or gallops Abdomen: Soft, nontender, nondistended, positive bowel sounds x4, obese Extremities: +2 pulses bilaterally radialis/ dorsalis pedis, no cyanosis, +1 pitting edema bilateral lower extremity Neuro: RASS -1, follows simple commands Psych: Unable to assess G/U: Positive Degroot --Prophylaxis VTE: Heparin GI: Pantoprazole Lines: Left subclavian, right radial, positive Degroot Diet: Tube feeds Plan: In/out: +2.8 L, urine output 630, positive ETT since coming to the hospital AB.30/51/62 on PEEP of 8, 40%, respirate of 25 Continue with Zosyn for right lower lobe pneumonia likely aspiration Hold heparin given the drop in hemoglobin slowly. Repeat H&H at 3 SBT for trial of extubation today. Patient needs to be compliant with BiPAP If she is noncompliant then she will get reintubated and trach directly She will benefit from trilogy machine at home Patient is more hypertensive now. Resume the clonidine patch as well as metoprolol 5 mg every 4 hours as needed Hypomagnesemia, hypophosphatemia, hypokalemia being replaced 20 mg of Lasix given to the patient today, patient's creatinine has been stable. We will try to get ultrasound-guided peripheral line and take the central line out DC radial line I have personally spent 37 minutes of critical care time in the direct management of this patient. This is a life/limb threatening event. This includes time spent evaluating patient, direct bedside care, chart review, placing orders, interpretation of diagnostic studies, discussion with consultants, patient, and/or family members regarding treatment decisions, as well as other required patient management activities. This time is exclusive of all separately billable procedures, and teaching time and separate from and in addition to any other critical care service time. Subjective Patient seen and examined this morning. Less sedated than previously. She does awake and follows intermittent commands. Does not appear to be in respiratory distress at this time while on ventilator. Review of Systems Review of Systems: Unobtainable due to endotracheal tube Physical Exam Physical Exam: Constitutional: intubated on ventilator, in no acute distress. Vitals as above. HEENT: PERRL, conjunctivae normal, anicteric sclerae Neck: trachea midline, no thyromegaly Lungs: Coarse breath sounds bilaterally with crackles R>L.No wheezes. Cardiac: RRR, no murmur, 1+ pitting edema lower extremities, 2+ radialis/dorsalis pedal pulses Abdomen: normal bowel sounds, soft, nontender, no hepatosplenomegaly MSK: No cyanosis or clubbing. Skin: No rashes, extremities cool to touch, dry. Neurologic: EOMI, accommodation nl Results & Data Results & Data ([facility]) Vital Signs (Past 12 Hours) Vital Signs Temp Pulse Resp BP Pulse Ox 03/01/22 09:20 95 H 183/98 H 03/01/22 07:44 93 H 26 H 92 03/01/22 06:30 37.2 C 82 25 H 121/77 94 03/01/22 06:00 37.2 C 78 25 H 94/48 L 94 03/01/22 05:30 37.0 C 76 25 H 116/49 L 95 03/01/22 05:00 37.0 C 72 25 H 100/59 L 96 03/01/22 04:33 37.0 C 74 25 H 93 03/01/22 04:30 37.0 C 69 25 H 100/57 L 93 03/01/22 04:00 36.9 C 73 25 H 113/77 94 03/01/22 03:30 36.8 C 83 25 H 119/54 L 94 03/01/22 03:10 72 25 H 94 03/01/22 03:00 36.8 C 72 25 H 124/63 96 03/01/22 02:30 36.8 C 75 25 H 123/69 96 03/01/22 02:00 36.8 C 77 26 H 143/65 H 95 03/01/22 01:30 36.8 C 77 26 H 127/77 95 03/01/22 01:00 36.8 C 74 25 H 124/87 03/01/22 00:30 36.9 C 81 26 H 145/71 H 93 03/01/22 00:00 36.9 C 83 26 H 143/86 H 02/28/22 23:30 37.0 C 88 27 H 157/60 H 95 02/28/22 23:00 37.0 C 78 25 H 145/66 H 95 02/28/22 22:39 73 25 H 92 02/28/22 22:30 37.1 C 74 25 H 149/83 H 95 02/28/22 22:00 37.1 C 73 25 H 133/62 91 Laboratory Results 03/01/22 03/01/22 03/01/22 Range/Units 05:53 04:46 04:46 WBC (4.8-10.8) K/uL RBC (4.2-5.4) M/uL Hgb (12.0-16.0) g/dL POC Hgb (12.0-16.0) g/dl Hct (37-47) % POC Hct (37-47) % MCV (80-100) fL MCH (25-34) pg MCHC (32-36) g/dL RDW Std Deviation (36.4-46.3) fL RDW Coeff of Ana (11.5-14.5) % Plt Count (130-400) K/uL MPV (7.4-10.4) fL Immature Gran % (Auto) % Neut % (Auto) % Lymph % (Auto) % [place] % (Auto) % Eos % (Auto) % Baso % (Auto) % Neut # (Auto) (1.4-6.5) K/uL Lymph # (Auto) (1.2-3.4) K/uL [place] # (Auto) (0.11-0.59) K/uL Eos # (Auto) (0-0.5) K/uL Baso # (Auto) (0-0.2) K/uL Immature Gran # (Auto) (0.00-0.02) K/uL Absolute Nucleated RBC (0-0) K/uL Nucleated RBC % (auto) % Platelet Estimate (Normal) Basophilic Stippling Sample Site POC pH (7.35-7.45) POC pCO2 (35-46) mmHg POC pO2 (80-95) mmHg POC HCO3 (19-24) rosalind/L POC Total CO2 (24-31) mmol/L POC Base Excess (-9-1.8) rosalind/L ABG pH (Temp Correct) (7.35-7.45) ABG pCO2 (Temp Corrct (35-46) mmHg POC ABG pO2 at Pt Temp POC ABG O2 Sat (90-95) % Berto Test O2 Delivery Device POC O2 Rate Minute Ventilation POC FiO2 % Tidal Volume PEEP POC Sodium (135-144) mmol/L Sodium 141 (136-145) mmol/L POC Potassium (3.3-5.0) mmol/L Potassium 3.2 L (3.5-5.1) mmol/L Chloride 109 H (98-107) mmol/L Carbon Dioxide 24 (21-32) mmol/L Anion Gap 8 (3-11) BUN 72 H (6-23) mg/dl Creatinine 1.70 H (0.6-1.2) mg/dl Est Cr Clr Drug Dosing 33.2 ml/min Est GFR ( Amer) 35.5 ml/min Est GFR (Non-Af Amer) 30.7 ml/min BUN/Creatinine Ratio 42.4 H (10-20) Glucose 139 H (70-99(Fasting)) mg/dl POC Glucose 161 H (70-99) mg/dl Calcium 9.0 (8.5-10.1) mg/dl Phosphorus 2.3 L (2.5-4.9) mg/dl Magnesium 1.9 (1.7-2.4) mg/dl Nasal Screen MRSA (PCR) (Negative) Random Vancomycin 21.8 H (10-20) mcg/ml 05/31/22 05/31/22 05/31/22 Range/Units 04:46 04:16 00:03 WBC 15.07 H (4.8-10.8) K/uL RBC 3.07 L (4.2-5.4) M/uL Hgb 8.5 L (12.0-16.0) g/dL POC Hgb 7.8 L (12.0-16.0) g/dl Hct 26.2 L (37-47) % POC Hct 23 L (37-47) % MCV 85.3 (80-100) fL MCH 27.7 (25-34) pg MCHC 32.4 (32-36) g/dL RDW Std Deviation 44.8 (36.4-46.3) fL RDW Coeff of Ana 14.5 (11.5-14.5) % Plt Count 82 L (130-400) K/uL MPV 9.9 (7.4-10.4) fL Immature Gran % (Auto) 0.4 % Neut % (Auto) 80.2 % Lymph % (Auto) 10.2 % [place] % (Auto) 8.0 % Eos % (Auto) 1.1 % Baso % (Auto) 0.1 % Neut # (Auto) 12.09 H (1.4-6.5) K/uL Lymph # (Auto) 1.54 (1.2-3.4) K/uL [place] # (Auto) 1.20 H (0.11-0.59) K/uL Eos # (Auto) 0.17 (0-0.5) K/uL Baso # (Auto) 0.01 (0-0.2) K/uL Immature Gran # (Auto) 0.06 H (0.00-0.02) K/uL Absolute Nucleated RBC 0.06 H (0-0) K/uL Nucleated RBC % (auto) 0.4 % Platelet Estimate Decreased L (Normal) Basophilic Stippling 1+ Sample Site Art Line POC pH 7.30 L (7.35-7.45) POC pCO2 51 H (35-46) mmHg POC pO2 62 L (80-95) mmHg POC HCO3 25 H (19-24) rosalind/L POC Total CO2 27 (24-31) mmol/L POC Base Excess -1.0 (-9-1.8) rosalind/L ABG pH (Temp Correct) 7.303 L (7.35-7.45) ABG pCO2 (Temp Corrct 51 H (35-46) mmHg POC ABG pO2 at Pt Temp 62 POC ABG O2 Sat 89.0 L (90-95) % Berto Test NA O2 Delivery Device Ventilator POC O2 Rate 25 Minute Ventilation 9.6 POC FiO2 40 % Tidal Volume 385 PEEP 8 POC Sodium 139 (135-144) mmol/L Sodium (136-145) mmol/L POC Potassium 3.4 (3.3-5.0) mmol/L Potassium (3.5-5.1) mmol/L Chloride (98-107) mmol/L Carbon Dioxide (21-32) mmol/L Anion Gap (3-11) BUN (6-23) mg/dl Creatinine (0.6-1.2) mg/dl Est Cr Clr Drug Dosing ml/min Est GFR ( Amer) ml/min Est GFR (Non-Af Amer) ml/min BUN/Creatinine Ratio (10-20) Glucose (70-99(Fasting)) mg/dl POC Glucose 156 H (70-99) mg/dl Calcium (8.5-10.1) mg/dl Phosphorus (2.5-4.9) mg/dl Magnesium (1.7-2.4) mg/dl Nasal Screen MRSA (PCR) (Negative) Random Vancomycin (10-20) mcg/ml 02/28/22 02/28/22 02/28/22 Range/Units 18:11 14:04 11:17 WBC (4.8-10.8) K/uL RBC (4.2-5.4) M/uL Hgb (12.0-16.0) g/dL POC Hgb (12.0-16.0) g/dl Hct (37-47) % POC Hct (37-47) % MCV (80-100) fL MCH (25-34) pg MCHC (32-36) g/dL RDW Std Deviation (36.4-46.3) fL RDW Coeff of Ana (11.5-14.5) % Plt Count (130-400) K/uL MPV (7.4-10.4) fL Immature Gran % (Auto) % Neut % (Auto) % Lymph % (Auto) % [place] % (Auto) % Eos % (Auto) % Baso % (Auto) % Neut # (Auto) (1.4-6.5) K/uL Lymph # (Auto) (1.2-3.4) K/uL [place] # (Auto) (0.11-0.59) K/uL Eos # (Auto) (0-0.5) K/uL Baso # (Auto) (0-0.2) K/uL Immature Gran # (Auto) (0.00-0.02) K/uL Absolute Nucleated RBC (0-0) K/uL Nucleated RBC % (auto) % Platelet Estimate (Normal) Basophilic Stippling Sample Site Art Line POC pH 7.31 L (7.35-7.45) POC pCO2 46 (35-46) mmHg POC pO2 59 L (80-95) mmHg POC HCO3 23 (19-24) rosalind/L POC Total CO2 24 (24-31) mmol/L POC Base Excess -3.0 (-9-1.8) rosalind/L ABG pH (Temp Correct) (7.35-7.45) ABG pCO2 (Temp Corrct (35-46) mmHg POC ABG pO2 at Pt Temp POC ABG O2 Sat 87.0 L (90-95) % Berto Test Pass O2 Delivery Device Ventilator POC O2 Rate 28 Minute Ventilation 10.4 POC FiO2 50 % Tidal Volume 370 PEEP 8 POC Sodium (135-144) mmol/L Sodium (136-145) mmol/L POC Potassium (3.3-5.0) mmol/L Potassium (3.5-5.1) mmol/L Chloride (98-107) mmol/L Carbon Dioxide (21-32) mmol/L Anion Gap (3-11) BUN (6-23) mg/dl Creatinine (0.6-1.2) mg/dl Est Cr Clr Drug Dosing ml/min Est GFR ( Amer) ml/min Est GFR (Non-Af Amer) ml/min BUN/Creatinine Ratio (10-20) Glucose (70-99(Fasting)) mg/dl POC Glucose 122 H (70-99) mg/dl Calcium (8.5-10.1) mg/dl Phosphorus (2.5-4.9) mg/dl Magnesium (1.7-2.4) mg/dl Nasal Screen MRSA (PCR) Negative (Negative) Random Vancomycin (10-20) mcg/ml 02/28/22 Range/Units 11:14 WBC (4.8-10.8) K/uL RBC (4.2-5.4) M/uL Hgb (12.0-16.0) g/dL POC Hgb (12.0-16.0) g/dl Hct (37-47) % POC Hct (37-47) % MCV (80-100) fL MCH (25-34) pg MCHC (32-36) g/dL RDW Std Deviation (36.4-46.3) fL RDW Coeff of Ana (11.5-14.5) % Plt Count (130-400) K/uL MPV (7.4-10.4) fL Immature Gran % (Auto) % Neut % (Auto) % Lymph % (Auto) % [place] % (Auto) % Eos % (Auto) % Baso % (Auto) % Neut # (Auto) (1.4-6.5) K/uL Lymph # (Auto) (1.2-3.4) K/uL [place] # (Auto) (0.11-0.59) K/uL Eos # (Auto) (0-0.5) K/uL Baso # (Auto) (0-0.2) K/uL Immature Gran # (Auto) (0.00-0.02) K/uL Absolute Nucleated RBC (0-0) K/uL Nucleated RBC % (auto) % Platelet Estimate (Normal) Basophilic Stippling Sample Site POC pH (7.35-7.45) POC pCO2 (35-46) mmHg POC pO2 (80-95) mmHg POC HCO3 (19-24) rosalind/L POC Total CO2 (24-31) mmol/L POC Base Excess (-9-1.8) rosalind/L ABG pH (Temp Correct) (7.35-7.45) ABG pCO2 (Temp Corrct (35-46) mmHg POC ABG pO2 at Pt Temp POC ABG O2 Sat (90-95) % Berto Test O2 Delivery Device POC O2 Rate Minute Ventilation POC FiO2 % Tidal Volume PEEP POC Sodium (135-144) mmol/L Sodium (136-145) mmol/L POC Potassium (3.3-5.0) mmol/L Potassium (3.5-5.1) mmol/L Chloride (98-107) mmol/L Carbon Dioxide (21-32) mmol/L Anion Gap (3-11) BUN (6-23) mg/dl Creatinine (0.6-1.2) mg/dl Est Cr Clr Drug Dosing ml/min Est GFR ( Amer) ml/min Est GFR (Non-Af Amer) ml/min BUN/Creatinine Ratio (10-20) Glucose (70-99(Fasting)) mg/dl POC Glucose 106 H (70-99) mg/dl Calcium (8.5-10.1) mg/dl Phosphorus (2.5-4.9) mg/dl Magnesium (1.7-2.4) mg/dl Nasal Screen MRSA (PCR) (Negative) Random Vancomycin (10-20) mcg/ml Resident Activity Tracking Resident Involvement: Resident Care Provided Care Provided: Adult Hospital Medicine
[2022-03-01] MEDS: NOREPINEPHRINE/D5W 4 MG/250 ML PLCT IV SCH (09:53)
[2022-03-01] MEDS: VALPROATE SOD 500 MG in DEXTROSE 5% 50 ML IV SCH (10:07)
[2022-03-01] MEDS ORDERED: FUROSEMIDE INJ 20 MG/2 ML VIAL IV ONE (10:08)
[2022-03-01] MEDS: VALPROATE SOD 250 MG in DEXTROSE 5% 50 ML IV SCH ×3 (11:30→21:09)
[2022-03-01] MEDS: PANTOprazole 40 MG in SYRINGE 0 ML IV SCH (11:31)
[2022-03-01] MEDS ORDERED: cloNIDine HCL 0.1 MG/24 HR TRANSDERM SYS TD SCH (12:00)
[2022-03-01] MEDS: CHECK CLONIDINE PATCH PLACEMENT SCH ×2 (13:30→23:47)
--- NOTE | 2022-03-01 13:44 | Billing Data ---
Date of Service March 01, 2022 Coding Level of Care Code Critical Care 1st 30-74 mins Time Spent (min) 37
[2022-03-01 14:57] LABS: Hematocrit (blood only) 27.1 % (37-47); Hemoglobin 8.9 g/dL (12.0-16.0)
[2022-03-01 20:42] LABS: Influenza A virus by PCR Negative (Neg); Influenza B virus by PCR Negative (Neg); RSV by PCR Negative (Neg); SARS CoV2 RNA(COVID-19) InHosp NEGATIVE (Negative)
[2022-03-01] MEDS: SENNOSIDES 8.8 MG/5 ML UDC PO SCH (21:10)
--- NOTE | 2022-03-01 23:26 | Hospitalist Progress Note ---
Date of Service March 01, 2022 Assessment & Plan (1) Aspiration pneumonia: Plan: CT chest 02/27/22 with secretions/debris in RLL airway (and to lesser degree the LLL bronchus). CXR with evidence of RLL pneumonia. She developed aspiration pneumonia while on cefepime/doxy - thus, abx changed to IV zosyn. s/p bronch by Dr Latham 02/28/22 - cultures thus far negative. blood cultures 02/26/22 negative. Cont BIPAP and supportive care. At high risk of re-intubation. (2) Acute metabolic encephalopathy: Plan: 02/26/22 - developed severely altered mental status. 2nd to severe respiratory acidosis & hypothermia at that time. MRI brain from earlier in the stay without acute or chronic CVA, ICH, etc. Despite Rx of respiratory acidosis (with intubation/mech ventilation) her mental status remains very altered. Depakote level not toxic. Ammonia level wnl. TSH wnl. Ongoing confusion/lethargy - etiology?? Consider repeat MRI brain. Recheck COVID testing. (3) Acute on chronic respiratory failure with hypoxia and hypercapnia: Plan: Recurrent, severe acute respiratory acidosis/elevated pCO2 on 02/27 with resumption of BIPAP. She is on baseline O2 at home, ~4-6 liters. Despite 24+ hours of escalating BIPAP her hypercapnea did not resolve. Thus, she was intubated 02/27/22. Extubated successfully this am, 03/01/22. Developed aspiration pneumonia in the midst of her recurrent hypercapnea. See above. (4) Acute kidney injury: Plan: Likely ATN from prerenal causes. Can't rule out contrast nephropathy from CT contrast. Obstruction ruled out with negative CT a/p. Creatinine has improved but has not returned to baseline. Cont supportive care and daily BMP. (5) Hypothermia: Plan: 02/26/22. Retrospectively was likely due to developing pneumonia. Resolved. (6) Empty sella: Plan: Seen on MRI brain earlier this admission. In light of recurrent sepsis-like picture, resp failure, low BP, etc -- checked TSH, FT4, and cortisol - all wnl. (7) Hypomagnesemia: Plan: repleted resolved (8) Seizure-like activity: Plan: Reported and witnessed by EMS just prior to admission. EEG without seizure activity. MRI brain negative. Exact etiology uncertain. Seen by neurology earlier this stay - depakote advised. Due to NPO status changed depakote to IV valproic acid. Most recent depakote level stable. (9) Sepsis: Plan: Treated for such early in the stay. Thought 2nd to maxillary sinusitis and mastoiditis based on MRI findings (although no clinical evidence of latter on physical exam). Meningitis ruled out early in stay s/p normal LP. Had been on cefepime + doxycycline since earlier in the stay. Developed aspiration pneumonia while on these 2 antibiotics. Cefepime/doxy stopped - she is now on zosyn. blood cx's 02/26/22 remain negative. (10) Chronic kidney disease, stage 3a: Plan: baseline CrCl 50-60 now with GERALD BMP in am (11) Obesity: Plan: BMI 31 (12) Hypertension: Plan: Hold anti-hypertensives. (13) COPD (chronic obstructive pulmonary disease): Plan: Deferring on steroids at this time. (14) Elevated troponin: Plan: Peak HS trop was 187 earlier in stay -- likely 2nd to myocardial demand ischemia in setting of respiratory failure. (15) Sinusitis: Plan: Aggressively treated with broad-spectrum IV abx early this stay - at least 7+ days. Cannot imagine this is playing any role in current clinical picture. (16) Mastoiditis: Plan: b/l - seen on MRI brain. clinically there is no evidence of such on exam =- no inflammation/swelling/tenderness over either mastoid; ears symmetric; etc. (17) Pulmonary nodules: Plan: Right lower lobe nodule seen on CT chest earlier in the stay. Follow-up CT chest 3 months. (18) DVT prophylaxis: Plan: heparin 5000 TID Plan: sonRuddy, extensively updated by phone by myself and tank cooper this week Admission and Anticipated Discharge Date Admission Date: February 20, 2022 Subjective patient extubated this am to BIPAP has tolerated BIPAP since then her mental status remains poor opens eyes to her name being called; squeezes her hands to commands - but remains lethargic Review of Systems Review of Systems: Unobtainable due to cognitive status Physical Exam Physical Exam: gen - BIPAP mask in place, opens eyes, lethargicl neck - no JVD heart - RRR, s1 s2, no murmur lungs - decreased BS right base, left lung clear; no increased work of breathing abd - soft, NT, BS+, ND ext - no edema, pulses 2+ b/l skin - left chest central line intact neuro - strength handgrip 4/5 on right; 3/5 on left handgrip; spontaneously moves b/l legs musculo - generalized edema of left arm Results & Data Results & Data ([facility]) Vital Signs (Past 12 Hours) Vital Signs Temp Pulse Pulse Resp BP Pulse Ox 03/01/22 22:39 92 H 21 92 03/01/22 22:30 36.5 C 93 H 15 132/46 L 93 03/01/22 22:00 36.5 C 95 H 16 131/48 L 92 03/01/22 21:30 36.5 C 96 H 16 132/51 L 92 03/01/22 21:00 36.5 C 80 15 158/55 H 93 03/01/22 20:31 36.5 C 78 17 157/46 H 92 03/01/22 20:00 36.4 C L 100 H 16 124/65 92 03/01/22 19:55 94 H 95 H 21 90 03/01/22 19:30 36.4 C L 88 20 153/46 H 91 03/01/22 19:01 36.3 C L 80 19 141/57 H 96 03/01/22 19:00 36.3 C L 90 15 95 03/01/22 18:30 36.3 C L 79 16 130/41 L 95 03/01/22 18:00 36.2 C L 91 H 18 130/44 L 94 03/01/22 17:30 36.2 C L 75 16 130/45 L 95 03/01/22 17:00 36.1 C L 79 21 124/39 L 95 03/01/22 16:31 36.1 C L 80 13 139/41 L 95 03/01/22 16:30 36.1 C L 82 15 03/01/22 16:29 78 03/01/22 16:15 36.1 C L 81 23 94 03/01/22 16:00 36.1 C L 86 18 98/35 L 93 03/01/22 15:45 36.2 C L 82 21 93 03/01/22 15:30 36.2 C L 87 22 131/41 L 93 03/01/22 15:15 36.3 C L 83 21 92 03/01/22 15:00 36.3 C L 81 21 136/41 L 93 03/01/22 14:53 76 20 93 03/01/22 14:45 36.3 C L 76 20 94 03/01/22 14:38 36.3 C L 76 18 143/43 H 95 03/01/22 14:36 36.3 C L 78 15 134/45 L 94 03/01/22 14:30 94/29 L 03/01/22 14:15 36.4 C L 76 20 92 03/01/22 14:02 36.4 C L 79 16 116/41 L 92 03/01/22 14:00 36.4 C L 75 19 107/37 L 92 03/01/22 13:45 36.4 C L 72 14 92 03/01/22 13:30 36.4 C L 77 1 L 106/48 L 93 03/01/22 13:15 36.4 C L 78 0 L 91 03/01/22 13:00 36.4 C L 77 21 105/38 L 03/01/22 12:30 36.6 C 79 16 117/40 L 03/01/22 12:07 36.6 C 79 10 L 120/42 L 03/01/22 12:00 36.6 C 76 12 03/01/22 11:31 36.7 C 78 13 168/70 H 03/01/22 11:30 36.7 C 80 15 93 Laboratory Results Laboratory Results - last 24 hr 03/01/22 03/01/22 03/01/22 00:03 04:16 04:46 WBC 15.07 H RBC 3.07 L Hgb 8.5 L POC Hgb 7.8 L Hct 26.2 L POC Hct 23 L MCV 85.3 MCH 27.7 MCHC 32.4 RDW Std Deviation 44.8 RDW Coeff of Ana 14.5 Plt Count 82 L MPV 9.9 Immature Gran % (Auto) 0.4 Neut % (Auto) 80.2 Lymph % (Auto) 10.2 Antelope % (Auto) 8.0 Eos % (Auto) 1.1 Baso % (Auto) 0.1 Neut # (Auto) 12.09 H Lymph # (Auto) 1.54 Antelope # (Auto) 1.20 H Eos # (Auto) 0.17 Baso # (Auto) 0.01 Immature Gran # (Auto) 0.06 H Absolute Nucleated RBC 0.06 H Nucleated RBC % (auto) 0.4 Platelet Estimate Decreased L Basophilic Stippling 1+ Sample Site Art Line POC pH 7.30 L POC pCO2 51 H POC pO2 62 L POC HCO3 25 H POC Total CO2 27 POC Base Excess -1.0 ABG pH (Temp Correct) 7.303 L ABG pCO2 (Temp Corrct 51 H POC ABG pO2 at Pt Temp 62 POC ABG O2 Sat 89.0 L Berto Test NA O2 Delivery Device Ventilator POC O2 Rate 25 Minute Ventilation 9.6 POC FiO2 40 Tidal Volume 385 PEEP 8 POC Sodium 139 Sodium POC Potassium 3.4 Potassium Chloride Carbon Dioxide Anion Gap BUN Creatinine Est Cr Clr Drug Dosing Est GFR ( Amer) Est GFR (Non-Af Amer) BUN/Creatinine Ratio Glucose POC Glucose 156 H Calcium Phosphorus Magnesium Random Vancomycin SARS-CoV-2 (PCR) Influenza Type A (PCR) Influenza Type B (PCR) RSV (RT-PCR) 03/01/22 03/01/22 03/01/22 04:46 04:46 05:53 WBC RBC Hgb POC Hgb Hct POC Hct MCV MCH MCHC RDW Std Deviation RDW Coeff of Ana Plt Count MPV Immature Gran % (Auto) Neut % (Auto) Lymph % (Auto) Antelope % (Auto) Eos % (Auto) Baso % (Auto) Neut # (Auto) Lymph # (Auto) Antelope # (Auto) Eos # (Auto) Baso # (Auto) Immature Gran # (Auto) Absolute Nucleated RBC Nucleated RBC % (auto) Platelet Estimate Basophilic Stippling Sample Site POC pH POC pCO2 POC pO2 POC HCO3 POC Total CO2 POC Base Excess ABG pH (Temp Correct) ABG pCO2 (Temp Corrct POC ABG pO2 at Pt Temp POC ABG O2 Sat Berto Test O2 Delivery Device POC O2 Rate Minute Ventilation POC FiO2 Tidal Volume PEEP POC Sodium Sodium 141 POC Potassium Potassium 3.2 L Chloride 109 H Carbon Dioxide 24 Anion Gap 8 BUN 72 H Creatinine 1.70 H Est Cr Clr Drug Dosing 33.2 Est GFR ( Amer) 35.5 Est GFR (Non-Af Amer) 30.7 BUN/Creatinine Ratio 42.4 H Glucose 139 H POC Glucose 161 H Calcium 9.0 Phosphorus 2.3 L Magnesium 1.9 Random Vancomycin 21.8 H SARS-CoV-2 (PCR) Influenza Type A (PCR) Influenza Type B (PCR) RSV (RT-PCR) 03/01/22 03/01/22 03/01/22 11:55 14:39 18:31 WBC RBC Hgb 8.9 L POC Hgb Hct 27.1 L POC Hct MCV MCH MCHC RDW Std Deviation RDW Coeff of Ana Plt Count MPV Immature Gran % (Auto) Neut % (Auto) Lymph % (Auto) Antelope % (Auto) Eos % (Auto) Baso % (Auto) Neut # (Auto) Lymph # (Auto) Antelope # (Auto) Eos # (Auto) Baso # (Auto) Immature Gran # (Auto) Absolute Nucleated RBC Nucleated RBC % (auto) Platelet Estimate Basophilic Stippling Sample Site POC pH POC pCO2 POC pO2 POC HCO3 POC Total CO2 POC Base Excess ABG pH (Temp Correct) ABG pCO2 (Temp Corrct POC ABG pO2 at Pt Temp POC ABG O2 Sat Berto Test O2 Delivery Device POC O2 Rate Minute Ventilation POC FiO2 Tidal Volume PEEP POC Sodium Sodium POC Potassium Potassium Chloride Carbon Dioxide Anion Gap BUN Creatinine Est Cr Clr Drug Dosing Est GFR ( Amer) Est GFR (Non-Af Amer) BUN/Creatinine Ratio Glucose POC Glucose 119 H 108 H Calcium Phosphorus Magnesium Random Vancomycin SARS-CoV-2 (PCR) Influenza Type A (PCR) Influenza Type B (PCR) RSV (RT-PCR) 03/01/22 19:30 WBC RBC Hgb POC Hgb Hct POC Hct MCV MCH MCHC RDW Std Deviation RDW Coeff of Ana Plt Count MPV Immature Gran % (Auto) Neut % (Auto) Lymph % (Auto) Antelope % (Auto) Eos % (Auto) Baso % (Auto) Neut # (Auto) Lymph # (Auto) Antelope # (Auto) Eos # (Auto) Baso # (Auto) Immature Gran # (Auto) Absolute Nucleated RBC Nucleated RBC % (auto) Platelet Estimate Basophilic Stippling Sample Site POC pH POC pCO2 POC pO2 POC HCO3 POC Total CO2 POC Base Excess ABG pH (Temp Correct) ABG pCO2 (Temp Corrct POC ABG pO2 at Pt Temp POC ABG O2 Sat Berto Test O2 Delivery Device POC O2 Rate Minute Ventilation POC FiO2 Tidal Volume PEEP POC Sodium Sodium POC Potassium Potassium Chloride Carbon Dioxide Anion Gap BUN Creatinine Est Cr Clr Drug Dosing Est GFR ( Amer) Est GFR (Non-Af Amer) BUN/Creatinine Ratio Glucose POC Glucose Calcium Phosphorus Magnesium Random Vancomycin SARS-CoV-2 (PCR) NEGATIVE Influenza Type A (PCR) Negative Influenza Type B (PCR) Negative RSV (RT-PCR) Negative PG Care Time/CCT Total # of Minutes Spent Total Time Spent with Patient: Total time spent is greater than 50% in coordination of care (as documented) at patient's floor/unit and/or counseling patient: Coding Level of Care Code 84229 Subseq Hosp Care Lvl 1 Diagnoses Aspiration pneumonia J69.0 Acute on chronic respiratory failure with hypoxia and hypercapnia J96.21; J96.22 Hypothermia T68.XXXA Acute metabolic encephalopathy G93.41 Empty sella E23.6 Acute kidney injury N17.9 Hypomagnesemia E83.42 Seizure-like activity R56.9 Sepsis A41.9 Chronic kidney disease, stage 3a N18.31 Obesity E66.9 Hypertension I10 COPD (chronic obstructive pulmonary disease) J44.9 COPD type: unspecified COPD Elevated troponin R77.8 Sinusitis J32.9 Mastoiditis H70.90 Pulmonary nodules R91.8 DVT prophylaxis Z29.9 (1) COPD (chronic obstructive pulmonary disease) COPD type: unspecified COPD Qualified Code(s): J44.9 - Chronic obstructive pulmonary disease, unspecified
[2022-03-02] MEDS: PIPERACILLIN/TAZOBACTAM 3.375 GM in DEXTROSE 5% 100 ML IV SCH ×3 (03:51→20:16)
[2022-03-02] MEDS: VALPROATE SOD 250 MG in DEXTROSE 5% 50 ML IV SCH ×4 (04:06→21:52)
[2022-03-02 05:34] LABS: iSTAT Allen Test Pass; iSTAT Art Bld Gas pCO2 Correct 85 mmHg (35-46); iSTAT Art Bld Gas pH Corrected 7.127 (7.35-7.45); iSTAT Arterial Blood Gas HCO3 28 meg/L (19-24); iSTAT Arterial Blood Gas pCO2 88 mmHg (35-46); iSTAT Arterial Blood Gas pH 7.11 (7.35-7.45); iSTAT Arterial Blood Gas pO2 63 mmHg (80-95); iSTAT Arterial Blood Gas pO2 C 59; iSTAT Carbon Dioxide 31 mmol/L (24-31); iSTAT FiO2 50 %; iSTAT Hematocrit 25 % (37-47); iSTAT Hemoglobin 8.5 g/dl (12.0-16.0); iSTAT Potassium 3.4 mmol/L (3.3-5.0); iSTAT Site L Radial; iSTAT Sodium 140 mmol/L (135-144)
[2022-03-02 05:37] LABS: Hematocrit (blood only) 28.4 % (37-47); Mean Corpuscular Hgb Conc 31.7 g/dL (32-36); Mean Corpuscular Volume 88.5 fL (80-100); Nucleated RBC # (auto) 0.02 K/uL (0-0); Nucleated RBC % (auto) 0.1 %; RDW Coefficient of Variation 14.4 % (11.5-14.5); RDW Standard Deviation 46.9 fL (36.4-46.3); Red Blood Count 3.21 M/uL (4.2-5.4); White Blood Count 20.44 K/uL (4.8-10.8)
[2022-03-02 05:38] LABS: Mean Platelet Volume 10.6 fL (7.4-10.4); Platelet Count 89 K/uL (130-400)
[2022-03-02] MEDS ORDERED: RAPID SEQUENCE INDUCTION BAG ONE (05:43)
[2022-03-02] MEDS ORDERED: NOREPINEPHRINE/D5W 4 MG/250 ML IV ONE (05:44)
[2022-03-02] MEDS ORDERED: STAT IV Infusion **Titration per Protocol STA ×2 (05:44→06:49)
[2022-03-02] MEDS: NOREPINEPHRINE/D5W 4 MG/250 ML PLCT IV SCH ×2 (05:57→21:55)
[2022-03-02 05:58] LABS: Basophilic Stippling 1+; Basophils # (auto) 0.02 K/uL (0-0.2); Basophils % (auto) 0.1 %; Eosinophils # (auto) 0.36 K/uL (0-0.5); Eosinophils % (auto) 1.8 %; Immature Granulocytes # (auto) 0.22 K/uL (0.00-0.02); Immature Granulocytes % (auto) 1.1 %; Lymphocytes # (auto) 1.33 K/uL (1.2-3.4); Lymphocytes % (auto) 6.5 %; Monocytes # (auto) 1.68 K/uL (0.11-0.59); Monocytes % (auto) 8.2 %; Neutrophils # (auto) 16.83 K/uL (1.4-6.5); Neutrophils % (auto) 82.3 %
[2022-03-02 06:00] LABS: BUN Creatinine Ratio 37.9 (10-20); Calcium 9.6 mg/dl (8.5-10.1); Creatinine Clr Calc Pharmacy 32.2 ml/min; Est GFR (African American) 33.9 ml/min; Est GFR (Non-African American) 29.2 ml/min; Magnesium 2.3 mg/dl (1.7-2.4); Phosphorus 4.8 mg/dl (2.5-4.9); Potassium 3.5 mmol/L (3.5-5.1)
--- NOTE | 2022-03-02 06:34 | Communication Note ---
Date of Service: March 02, 2022 0530: Was approached by respiratory staff and provided patient's ABG. Unfortunately, the patient is developing worsening respiratory acidosis despite aggressive BiPAP settings. Throughout the night, the patient remained alert and would awaken with verbal stimulation alone. Unfortunately, the patient is obviously not ventilating appropriately. We did increase the patient's BiPAP settings to provide increasing inspiratory pressure to 20 as well as improved her backup respiratory rate. Despite this, the patient failed to engage the BiPAP and had increasing leaking and poorer ventilation despite changes. At this point, decision was made to reintubate the patient given her obvious failure. Please see separate note. Nursing staff did attempt to contact the patient's son who did not answer. Orders were placed start the patient on Levophed as she did have soft blood pressures prior to intubation. Given experience with recent intubation, I was concerned that she would drop her pressures again post intubation. Levophed was ordered. The patient did well post intubation without significant drop in blood pressure.. Orders placed for sedation. I have personally spent 45 minutes of critical care time in the direct management of this patient. This is a life/limb threatening event. This includes time spent evaluating patient, direct bedside care, chart review, placing orders, interpretation of diagnostic studies, discussion with consultants, patient, and family members, as well as other required patient management activities. This time is exclusive of all separately billable procedures, and teaching time and separate from and in addition to any other critical care service time. Coding Level of Care Code Critical Care 1st 30-74 mins Time Spent (min) 45
--- NOTE | 2022-03-02 06:37 | Procedure Note ---
Procedure Note Date of Service March 02, 2022 Note APC: Pedro Worthington PA-C. Attending: Dr. Latham A time-out was completed verifying correct patient, procedure, site, positioning. Patient was evaluated and required intubation for respiratory failure, failed NIPPV, Respiratory acidosis, hypercapnic respiratory failure. Sedative agent used: Etomidate 10 mg Paralysis agent used: Succinylcholine Emergent consent was implied given patients rapidly declining clinical status and need for airway protection. The patient was prepared in the appropriate fashion. Sedation was achieved utilizing etomidate and succinylcholine, per Dr. Latham administration. The patient was easily ventilated using [id number] to achieve adequate oxygenation. A 7.5 Ni[place] endotracheal tube was placed using GlideScope to 24 cm at the lip. The stylette was removed and balloon was inflated with 10mL of air. Appropriate Colorimetric change was appreciated. Bilateral breath sounds were heard without air sounds in the abdomen. Dr. Burgos (anesthesia) was present for the entire procedure. Post Intubation Chest X-ray confirms placement without pneumothorax. Patient tolerated the procedure well and there were no immediate complications. Coding CPT Codes Resuscitation - Resuscitation: 03275 Endotracheal Intubation, emergency ([id number]) [facility] [place] ([place]) Resuscitation Resuscitation: 34629 Endotracheal Intubation, emergency
[2022-03-02] MEDS ORDERED: PROPOFOL BOLUS FROM BAG IV PRN (06:49)
[2022-03-02] MEDS: INSULIN ASPART PER UNIT SC SCH ×3 (07:00→18:05)
[2022-03-02] MEDS ORDERED: propofoL 1,000 MG/100 ML VIAL IV SCH (07:00)
[2022-03-02] MEDS: fentaNYL citrate 2,500 MCG/250 ML BAG IV SCH (07:11)
[2022-03-02] MEDS: BUDESONIDE 0.25 MG/2 ML VIAL (PULMICORT) NEB SCH ×2 (07:20→20:03)
[2022-03-02] MEDS: FORMOTEROL 20 MCG/2 ML VIAL NEB SCH ×2 (07:20→20:04)
--- NOTE | 2022-03-02 07:38 | Hospitalist Progress Note ---
Date of Service March 02, 2022 Assessment & Plan (1) Aspiration pneumonia: Plan: 03/02/22 Acute respiratory failure with hypercapnia and acidemia, failed Bipap re intubated and ventilated ent consult for possible trache CT chest 02/27/22 with secretions/debris in RLL airway IV zosyn. s/p bronch by Dr Latham 02/28/22 - culture negative. blood cultures 02/26/22 negative. (2) Acute on chronic respiratory failure with hypoxia and hypercapnia: Plan: Recurrent, severe acute respiratory acidosis Re intubated 03/02/22 Developed aspiration pneumonia with previous decline 02/27/22 (3) Acute metabolic encephalopathy: Plan: 02/26/22 - developed severely altered mental status. 2nd to severe respiratory acidosis & hypothermia at that time. MRI brain from earlier in the stay without acute or chronic CVA, ICH, etc. Despite Rx of respiratory acidosis (with intubation/mech ventilation) her mental status remains very altered. Depakote level not toxic. Ammonia level wnl. TSH wnl. (4) Sepsis: Plan: Meningitis ruled out early in stay s/p normal LP. Had been on cefepime + doxycycline developed aspiration pneumonia transitioned to zosyn. cx's negative. (5) Acute kidney injury: Plan: Likely ATN from prerenal causes. Obstruction ruled out with negative CT a/p. (6) Seizure-like activity: Plan: Reported and witnessed by EMS just prior to admission. EEG without seizure activity. MRI brain negative. Seen by neurology earlier this stay - depakote advised. 02/26/22 depakote level stable. (7) Elevated troponin: Plan: Peak HS trop was 187 earlier in stay -- likely 2nd to myocardial demand ischemia in setting of respiratory failure. (8) Chronic kidney disease, stage 3a: (9) Hypertension: (10) COPD (chronic obstructive pulmonary disease): (11) Mastoiditis: Plan: b/l - seen on MRI brain. clinically there is no evidence of such on exam =- no inflammation/swelling/tenderness over either mastoid; ears symmetric; etc. (12) Pulmonary nodules: Plan: Right lower lobe nodule seen on CT chest earlier in the stay. Follow-up CT chest 3 months. (13) DVT prophylaxis: Plan: heparin 5000 TID (14) Hypothermia: Plan: 02/26/22. Retrospectively was likely due to developing pneumonia. Resolved. (15) Empty sella: Plan: Seen on MRI brain earlier this admission. In light of recurrent sepsis-like picture, resp failure, low BP, etc -- TSH, FT4, and cortisol - all wnl. Admission and Anticipated Discharge Date Admission Date: February 20, 2022 Subjective Overnight needed to be reintubated for the 3rd time and placed on pressors. Now on mechanical ventilation. Patient seen and examined this morning. Sedated, difficult to arouse. there is consideration of trache as failed extubation Review of Systems Review of Systems: Unobtainable due to cognitive status and Unobtainable due to endotracheal tube Physical Exam Physical Exam: The patient appeared stable and supported Vital signs as documented. Lungs are coarse and supported Cardiac exam, Rhythm is regular.. No murmurs, rubs or gallops. Abdominal exam reveals normal bowel sounds, soft Extremities are trace edematous and both pedal pulses are normal. Results & Data Results & Data ([facility]) Vital Signs (Past 12 Hours) Vital Signs Temp Pulse Pulse Resp BP Pulse Ox 03/02/22 07:20 62 29 H 95 03/02/22 06:10 98 H 28 H 64 L 03/02/22 03:23 82 19 93 03/02/22 02:30 97.5 F L 93 H 15 03/02/22 02:00 97.5 F L 90 17 129/45 L 92 03/02/22 01:30 97.5 F L 93 H 17 111/77 92 03/02/22 01:00 97.5 F L 93 H 17 136/47 L 91 03/02/22 00:30 97.5 F L 91 H 19 132/48 L 92 03/02/22 00:00 97.5 F L 95 H 15 120/56 L 92 03/01/22 23:30 97.5 F L 98 H 18 145/46 H 91 03/01/22 23:00 97.5 F L 97 H 15 128/46 L 93 03/01/22 22:39 92 H 21 92 03/01/22 22:30 97.7 F 93 H 15 132/46 L 93 03/01/22 22:00 97.7 F 95 H 16 131/48 L 92 03/01/22 21:30 97.7 F 96 H 16 132/51 L 92 03/01/22 21:00 97.7 F 80 15 158/55 H 93 03/01/22 20:31 97.7 F 78 17 157/46 H 92 03/01/22 20:00 97.5 F L 100 H 16 124/65 92 03/01/22 19:55 94 H 95 H 21 90 03/01/22 19:30 97.5 F L 88 20 153/46 H 91 PG Care Time/CCT Total # of Minutes Spent Total Time Spent with Patient: Total time spent is greater than 50% in coordination of care (as documented) at patient's floor/unit and/or counseling patient: Coding Level of Care Code 26180 Subseq Hosp Care Lvl 3 Diagnoses Aspiration pneumonia J69.0 Acute metabolic encephalopathy G93.41 Acute on chronic respiratory failure with hypoxia and hypercapnia J96.21; J96.22 Acute kidney injury N17.9 Hypothermia T68.XXXA Empty sella E23.6 Seizure-like activity R56.9 Sepsis A41.9 Chronic kidney disease, stage 3a N18.31 Hypertension I10 COPD (chronic obstructive pulmonary disease) J44.9 COPD type: unspecified COPD Elevated troponin R77.8 Mastoiditis H70.90 Pulmonary nodules R91.8 DVT prophylaxis Z29.9 (1) COPD (chronic obstructive pulmonary disease) COPD type: unspecified COPD Qualified Code(s): J44.9 - Chronic obstructive pulmonary disease, unspecified
[2022-03-02] MEDS: CHECK CLONIDINE PATCH PLACEMENT SCH (08:10)
[2022-03-02 08:13] LABS: iSTAT Allen Test Pass; iSTAT Art Bld Gas pCO2 Correct 60 mmHg (35-46); iSTAT Art Bld Gas pH Corrected 7.244 (7.35-7.45); iSTAT Arterial Blood Gas HCO3 26 meg/L (19-24); iSTAT Arterial Blood Gas pCO2 61 mmHg (35-46); iSTAT Arterial Blood Gas pH 7.24 (7.35-7.45); iSTAT Arterial Blood Gas pO2 66 mmHg (80-95); iSTAT Arterial Blood Gas pO2 C 64; iSTAT Carbon Dioxide 28 mmol/L (24-31); iSTAT FiO2 60 %; iSTAT Hematocrit 24 % (37-47); iSTAT Hemoglobin 8.2 g/dl (12.0-16.0); iSTAT Potassium 3.3 mmol/L (3.3-5.0); iSTAT Site R Radial; iSTAT Sodium 140 mmol/L (135-144)
--- NOTE | 2022-03-02 08:41 | XRay Report ---
XR chest 1V portable CLINICAL HISTORY: s/p intubation COMPARISON STUDY: Chest CT February 27, 2022. Chest radiograph March 01, 2022. FINDINGS: Left subclavian central line is in place. Tip of endotracheal tube is 4 cm above the erik . Tip of nasogastric tube is at least within the body of the stomach. There is no pneumothorax. No ev idence for pulmonary edema. There may be a trace right pleural effusion. Extensive right lower lung a irspace opacity with volume loss is again noted. Opacity has slightly increased. Associated rightward mediastinal shift is noted. IMPRESSION: 1. Satisfactory positioning of lines and tubes. 2. Increase in extensive right basilar airspace opacity with volume loss. This could reflect pneumoni a or atelectasis. ACT 112: Negative or not required by law. Electronically signed by: Daniel Babb M.D. 03/02/2022 8:40 AM
[2022-03-02] MEDS: POTASSIUM CHLORIDE / WTR 20 MEQ/100 ML PLCT IV SCH ×2 (08:49→10:23)
[2022-03-02 10:25] LABS: Platelet Count 109 K/uL (130-400)
[2022-03-02 10:37] LABS: Partial Thromboplastin Ratio 1.2; Partial Thromboplastin Time 32.5 Seconds (21.0-31.0); Prothrombin Time 11.1 Seconds (9.0-12.0)
[2022-03-02] MEDS ORDERED: Heparin IV Adult Wt-Based Low-Dose *NO* Bolus Protocol IV STA (10:44)
[2022-03-02 10:45] LABS: Albumin Level 2.5 gm/dl (3.4-5.0); Bilirubin Direct 0.1 mg/dl (0-0.2); Bilirubin,Total 0.3 mg/dl (0.2-1.0); Total Protein 4.9 gm/dl (6.0-8.3)
[2022-03-02] MEDS ORDERED: Heparin Adult LOW DOSE Wt-Based Dextrose 5% 25,000 units/500 mL IV SCH (10:45)
[2022-03-02] MEDS ORDERED: PEPTAMEN 1.5 CAL 1,000 ML BAG OG SCH (11:15)
--- NOTE | 2022-03-02 12:02 | Critical Care Progress Note ---
Date of Service March 02, 2022 Assessment & Plan (1) Admitted to intensive care unit: Plan: Reason Critically Ill: 66-year-old female with recurrent acute on chronic hypoxemic respiratory failure with hypercapnia requiring intubation overnight and close monitoring. NEURO - * CAM ICU: POSITIVE * Altered mental status: Secondary to acute hypercapnic respiratory failure * Continue IV Depakote per neuro recs --> switch to p.o. 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 Metoprolol 5mg IV q4h prn systolic >180. * Hypotensive overnight, started back on Levophed for pressor support * +9L fluid balance since admission. Consider diuresis if kidneys allow. * Monitor on telemetry * Bilateral venous Doppler to r/o DVT RESPIRATORY - * Acute on chronic hypoxemic respiratory failure with hypercapnia: Poor compliance. Chest x-ray without acute infiltrate. Continue budesonide and Performist BID for history of COPD. * Chest XR (02/28) showed mediastinal shift to right with right lower lobe collapse. Subsequent bronchoscopy showed secretions but not enough to cause collapse. Most likely was due to aspiration pneumonia. * Need for 3rd intubation overnight. Tracheostomy to be performed by Dr. Lee on 03/03. GI/NUTRITION - * Tube feeds * ppx: protonix RENAL/LYTES - * GERALD likely from poor p.o. intake. * Hold IVF for now 2/2 fluid overload. * Replete lytes per protocol. Strict I&Os - * Degroot in place - Strict I&Os. ENDO - * DMII * BSGs per unit protocol. ISS --> gtt per unit policy. HEME - * Hgb 9, stable. * Thrombocytopenia improving. ID - * Repeat blood cultures no growth.Repeat sputum/lavage cx pending. Lumbar puncture from earlier in the hospitalization negative. Prior sputum and blood cultures negative.Repeat urine culture neg.Pro-[place] negative. * Repeat nasal MRSA swab neg. Continue zosyn for suspected pneumonia. LINES/IV ACCESS - * PIVs * LEFT Subclavian CVL * Degroot DVT PROPHYLAXIS - * Heparin held, tracheostomy tomorrow * SCDs Thank you for allowing us to participate in the care of this patient.Please refer to my attending physician's documentation for any further recommendations. (2) Acute on chronic respiratory failure with hypoxia and hypercapnia: (3) Acute metabolic encephalopathy: Admission and Anticipated Discharge Date Admission Date: February 20, 2022 Supervising Physician Co-Signing Physician Notes Dr. Kemp was the resident-physician during care of patient. I separately evaluated patient for jane portions of the history and the exam. I was present during the critical portion of medical decision making, and I discussed the case with the resident. I generally agree with the findings and plan except for any additions/exceptions noted. Patient seen and examined at bedside. No acute distress. Patient was intubated earlier today because she was somnolent even on BiPAP and hypercapnic. Patient was RASS -2, she was on Levophed 0.07 with MAP in the 80s, propofol 20 and fentanyl 25 Constitutional: No acute distress HEENT: EOMI, PERRLA, positive ETT Respiratory system: Decreased air entry bilaterally, no wheeze, no rhonchi, mild crackles bilaterally CVS: S1-S2 positive, no murmurs or gallops Abdomen: Soft, nontender, nondistended, positive bowel sounds x4, obese Extremities: +2 pulses bilaterally radialis/ dorsalis pedis, no cyanosis, +1 pitting edema bilateral lower extremity Neuro: RASS -2, following simple commands Psych: Unable to assess G/U: Positive Degroot --Prophylaxis VTE: Heparin on hold, IPC's GI: Pantoprazole Lines: Left subclavian, right radial, positive Degroot Diet: Tube feeds Plan: In/out: -704, urine output 1975 ABG after intubation shows improvement in patient's PCO2. Patient's baseline bicarb is usually 33-34 currently she is at 28. There is no anion gap. Lactate normal, trace urine ketones NAGMA could be from valproic acid. We will keep an eye on it if it is getting worse and reminded to change to something else BUN/creatinine has plateaued. She is making good amount of urine after I gave her Lasix yesterday. Continue with Zosyn for right lower lobe pneumonia from aspiration H&H is stable Given the patient required to be intubated again, this will be her third time this admission. I do think she is going to benefit from trach. Patient's platelet have stabilized around 80-89. She did have more than 50% drop she has been on heparin subcu for approximately 9 days. Bilateral lower extremity negative Thrombocytopenia could be from sepsis which is pneumonia with the patient has. It is also a possibility HIT work-up ordered, continue holding heparin I have personally spent 38 minutes of critical care time in the direct management of this patient. This is a life/limb threatening event. This includes time spent evaluating patient, direct bedside care, chart review, placing orders, interpretation of diagnostic studies, discussion with consultants, patient, and/or family members regarding treatment decisions, as well as other required patient management activities. This time is exclusive of all separately billable procedures, and teaching time and separate from and in addition to any other critical care service time. Subjective Overnight needed to be reintubated for the 3rd time and placed on pressors. Now on mechanical ventilation. Patient seen and examined this morning. Sedated, difficult to arouse. Does not appear to be in respiratory distress at this time while on ventilator. Review of Systems Review of Systems: Unobtainable due to endotracheal tube and Unobtainable due to reduced consciousness Physical Exam Physical Exam: Constitutional: intubated on ventilator, in no acute distress. Vitals as above. HEENT: PERRL, conjunctivae normal, anicteric sclerae Neck: trachea midline, no thyromegaly Lungs: Coarse breath sounds bilaterally with crackles R>L.No wheezes. Cardiac: RRR, no murmur, 1+ pitting edema lower extremities, 2+ radialis/dorsalis pedal pulses Abdomen: normal bowel sounds, soft, nontender, no hepatosplenomegaly MSK: No cyanosis or clubbing. Skin: No rashes, extremities cool to touch, dry. Neurologic: EOMI, accommodation nl Results & Data Results & Data ([facility]) Vital Signs (Past 12 Hours) Vital Signs Temp Pulse Resp BP Pulse Ox 03/02/22 10:56 37.2 C 72 28 H 95 03/02/22 10:51 37.3 C 67 25 H 148/67 H 95 03/02/22 10:46 37.3 C 68 28 H 94 03/02/22 10:45 63 28 H 96 03/02/22 10:41 37.3 C 68 28 H 130/61 94 03/02/22 10:35 37.2 C 68 28 H 95 03/02/22 10:31 37.2 C 70 28 H 116/61 92 03/02/22 10:30 37.2 C 69 24 95 03/02/22 10:25 37.2 C 67 28 H 155/76 H 95 03/02/22 10:21 37.2 C 66 24 94 03/02/22 10:16 37.2 C 70 28 H 129/60 94 03/02/22 10:10 37.2 C 66 28 H 95 03/02/22 10:06 37.1 C 70 25 H 98/48 L 90 03/02/22 10:01 37.1 C 72 28 H 127/61 03/02/22 10:00 37.1 C 67 25 H 94 03/02/22 09:56 37.1 C 67 28 H 180/64 H 94 03/02/22 09:51 37.1 C 64 24 181/77 H 95 03/02/22 09:46 37.0 C 67 28 H 180/80 H 97 03/02/22 09:40 36.9 C 62 28 H 173/82 H 96 03/02/22 09:35 37.0 C 62 28 H 168/66 H 95 03/02/22 09:32 36.9 C 63 28 H 164/69 H 95 03/02/22 09:30 36.9 C 63 24 95 03/02/22 09:26 36.9 C 64 28 H 109/59 L 03/02/22 09:20 36.9 C 63 28 H 164/62 H 95 03/02/22 09:16 36.9 C 59 L 28 H 93 03/02/22 09:10 36.8 C 63 28 H 105/89 93 03/02/22 09:06 36.8 C 61 24 122/52 L 03/02/22 08:55 36.8 C 60 28 H 94 03/02/22 08:50 36.8 C 57 L 28 H 110/60 92 03/02/22 08:45 36.7 C 61 24 86/46 L 88 L 03/02/22 08:41 36.7 C 63 28 H 98/46 L 87 L 03/02/22 08:40 36.7 C 66 28 H 91 03/02/22 08:36 36.7 C 66 24 111/53 L 03/02/22 08:35 36.7 C 62 28 H 93 03/02/22 08:33 36.7 C 62 24 143/58 H 93 03/02/22 08:30 36.7 C 63 24 150/63 H 92 03/02/22 08:26 36.7 C 63 28 H 128/61 91 03/02/22 08:25 36.7 C 63 28 H 92 03/02/22 08:20 36.6 C 63 28 H 168/70 H 93 03/02/22 08:15 36.6 C 63 24 145/60 H 91 03/02/22 08:10 36.6 C 69 28 H 131/63 92 03/02/22 08:08 28 H 03/02/22 08:05 36.6 C 65 28 H 125/55 L 94 03/02/22 08:00 36.6 C 66 28 H 139/65 94 03/02/22 07:55 36.6 C 66 28 H 127/67 96 03/02/22 07:51 36.5 C 66 28 H 165/71 H 97 03/02/22 07:50 36.5 C 63 24 98 03/02/22 07:45 36.5 C 69 28 H 87 L 03/02/22 07:41 36.5 C 70 24 97 03/02/22 07:40 36.4 C L 71 28 H 96 03/02/22 07:35 36.5 C 71 24 03/02/22 07:30 36.4 C L 69 28 H 94 03/02/22 07:26 36.3 C L 66 24 170/76 H 94 03/02/22 07:25 36.3 C L 66 28 H 96 03/02/22 07:24 36.3 C L 65 28 H 182/92 H 96 03/02/22 07:23 36.3 C L 66 24 193/92 H 97 03/02/22 07:21 36.3 C L 65 28 H 97 03/02/22 07:20 36.3 C L 69 25 H 97 03/02/22 07:15 36.1 C L 67 28 H 98 03/02/22 07:00 36.1 C L 63 28 H 100 03/02/22 06:58 36.0 C L 60 28 H 144/69 H 100 03/02/22 06:57 36.0 C L 64 28 H 142/67 H 100 03/02/22 06:54 36.0 C L 66 28 H 162/69 H 99 03/02/22 06:53 36.0 C L 66 24 139/70 100 03/02/22 06:51 35.9 C L 64 28 H 154/63 H 100 03/02/22 06:49 35.9 C L 65 28 H 161/61 H 99 03/02/22 06:47 35.9 C L 64 24 165/71 H 100 03/02/22 06:45 35.9 C L 69 28 H 165/68 H 99 03/02/22 06:43 35.9 C L 66 28 H 160/70 H 99 03/02/22 06:41 35.9 C L 67 25 H 165/91 H 99 03/02/22 06:39 35.9 C L 69 28 H 166/67 H 100 03/02/22 06:36 35.5 C L 71 24 100 03/02/22 06:32 35.8 C L 71 24 145/121 H 100 03/02/22 06:30 35.9 C L 70 16 98 03/02/22 06:22 35.8 C L 71 24 135/97 99 03/02/22 06:19 35.9 C L 67 25 H 100 03/02/22 06:16 35.9 C L 73 24 123/75 100 03/02/22 06:14 36.0 C L 74 10 L 130/78 100 03/02/22 06:12 35.9 C L 79 23 106/36 L 100 03/02/22 06:11 35.9 C L 78 25 H 105/62 100 03/02/22 06:10 98 H 28 H 64 L 03/02/22 06:08 36.0 C L 85 27 H 110/89 99 03/02/22 06:07 35.9 C L 78 21 120/56 L 98 03/02/22 06:04 36.0 C L 83 18 124/54 L 94 03/02/22 06:00 35.9 C L 87 0 L 95/47 L 91 03/02/22 05:30 36.0 C L 92 H 0 L 106/44 L 91 03/02/22 03:23 82 19 93 03/02/22 02:30 36.4 C L 93 H 15 03/02/22 02:00 36.4 C L 90 17 129/45 L 92 03/02/22 01:30 36.4 C L 93 H 17 111/77 92 03/02/22 01:00 36.4 C L 93 H 17 136/47 L 91 03/02/22 00:30 36.4 C L 91 H 19 132/48 L 92 03/02/22 00:00 36.4 C L 95 H 15 120/56 L 92 Laboratory Results 03/02/22 03/02/22 03/02/22 Range/Units 10:41 10:15 10:15 WBC (4.8-10.8) K/uL RBC (4.2-5.4) M/uL Hgb (12.0-16.0) g/dL POC Hgb (12.0-16.0) g/dl Hct (37-47) % POC Hct (37-47) % MCV (80-100) fL MCH (25-34) pg MCHC (32-36) g/dL RDW Std Deviation (36.4-46.3) fL RDW Coeff of Ana (11.5-14.5) % Plt Count (130-400) K/uL MPV (7.4-10.4) fL Immature Gran % (Auto) % Neut % (Auto) % Lymph % (Auto) % Carson % (Auto) % Eos % (Auto) % Baso % (Auto) % Neut # (Auto) (1.4-6.5) K/uL Lymph # (Auto) (1.2-3.4) K/uL Carson # (Auto) (0.11-0.59) K/uL Eos # (Auto) (0-0.5) K/uL Baso # (Auto) (0-0.2) K/uL Immature Gran # (Auto) (0.00-0.02) K/uL Absolute Nucleated RBC (0-0) K/uL Nucleated RBC % (auto) % Basophilic Stippling PT (9.0-12.0) Seconds INR (0.9-1.1) APTT (21.0-31.0) Seconds PTT Ratio Sample Site POC pH (7.35-7.45) POC pCO2 (35-46) mmHg POC pO2 (80-95) mmHg POC HCO3 (19-24) rosalind/L POC Total CO2 (24-31) mmol/L POC Base Excess (-9-1.8) rosalind/L ABG pH (Temp Correct) (7.35-7.45) ABG pCO2 (Temp Corrct (35-46) mmHg POC ABG pO2 at Pt Temp POC ABG O2 Sat (90-95) % Berto Test O2 Delivery Device POC O2 Rate Minute Ventilation POC FiO2 % Tidal Volume PEEP IPAP POC Sodium (135-144) mmol/L Sodium (136-145) mmol/L POC Potassium (3.3-5.0) mmol/L Potassium (3.5-5.1) mmol/L Chloride (98-107) mmol/L Carbon Dioxide (21-32) mmol/L Anion Gap (3-11) BUN (6-23) mg/dl Creatinine (0.6-1.2) mg/dl Est Cr Clr Drug Dosing ml/min Est GFR ( Amer) ml/min Est GFR (Non-Af Amer) ml/min BUN/Creatinine Ratio (10-20) Glucose (70-99(Fasting)) mg/dl POC Glucose (70-99) mg/dl Lactate 0.7 (0.4-2.0) mmol/L Calcium (8.5-10.1) mg/dl Phosphorus (2.5-4.9) mg/dl Magnesium (1.7-2.4) mg/dl Total Bilirubin 0.3 (0.2-1.0) mg/dl Direct Bilirubin 0.1 (0-0.2) mg/dl AST 19 (13-39) U/L ALT 21 (7-52) U/L Alkaline Phosphatase 58 (34-104) U/L Total Protein 4.9 L (6.0-8.3) gm/dl Albumin 2.5 L (3.4-5.0) gm/dl Urine Ketones Trace H (Negative) SARS-CoV-2 (PCR) (Negative) Influenza Type A (PCR) (Neg) Influenza Type B (PCR) (Neg) RSV (RT-PCR) (Neg) 03/02/22 03/02/22 03/02/22 Range/Units 10:15 10:15 07:58 WBC (4.8-10.8) K/uL RBC (4.2-5.4) M/uL Hgb (12.0-16.0) g/dL POC Hgb 8.2 L (12.0-16.0) g/dl Hct (37-47) % POC Hct 24 L (37-47) % MCV (80-100) fL MCH (25-34) pg MCHC (32-36) g/dL RDW Std Deviation (36.4-46.3) fL RDW Coeff of Ana (11.5-14.5) % Plt Count 109 L (130-400) K/uL MPV (7.4-10.4) fL Immature Gran % (Auto) % Neut % (Auto) % Lymph % (Auto) % Carson % (Auto) % Eos % (Auto) % Baso % (Auto) % Neut # (Auto) (1.4-6.5) K/uL Lymph # (Auto) (1.2-3.4) K/uL Carson # (Auto) (0.11-0.59) K/uL Eos # (Auto) (0-0.5) K/uL Baso # (Auto) (0-0.2) K/uL Immature Gran # (Auto) (0.00-0.02) K/uL Absolute Nucleated RBC (0-0) K/uL Nucleated RBC % (auto) % Basophilic Stippling PT 11.1 (9.0-12.0) Seconds INR 1.0 (0.9-1.1) APTT 32.5 H (21.0-31.0) Seconds PTT Ratio 1.2 Sample Site R Radial POC pH 7.24 L (7.35-7.45) POC pCO2 61 H (35-46) mmHg POC pO2 66 L (80-95) mmHg POC HCO3 26 H (19-24) rosalind/L POC Total CO2 28 (24-31) mmol/L POC Base Excess -1.0 (-9-1.8) rosalind/L ABG pH (Temp Correct) 7.244 L (7.35-7.45) ABG pCO2 (Temp Corrct 60 H (35-46) mmHg POC ABG pO2 at Pt Temp 64 POC ABG O2 Sat 88.0 L (90-95) % Berto Test Pass O2 Delivery Device Ventilator POC O2 Rate 28 Minute Ventilation 10.1 POC FiO2 60 % Tidal Volume 360 PEEP 8 IPAP POC Sodium 140 (135-144) mmol/L Sodium (136-145) mmol/L POC Potassium 3.3 (3.3-5.0) mmol/L Potassium (3.5-5.1) mmol/L Chloride (98-107) mmol/L Carbon Dioxide (21-32) mmol/L Anion Gap (3-11) BUN (6-23) mg/dl Creatinine (0.6-1.2) mg/dl Est Cr Clr Drug Dosing ml/min Est GFR ( Amer) ml/min Est GFR (Non-Af Amer) ml/min BUN/Creatinine Ratio (10-20) Glucose (70-99(Fasting)) mg/dl POC Glucose (70-99) mg/dl Lactate (0.4-2.0) mmol/L Calcium (8.5-10.1) mg/dl Phosphorus (2.5-4.9) mg/dl Magnesium (1.7-2.4) mg/dl Total Bilirubin (0.2-1.0) mg/dl Direct Bilirubin (0-0.2) mg/dl AST (13-39) U/L ALT (7-52) U/L Alkaline Phosphatase (34-104) U/L Total Protein (6.0-8.3) gm/dl Albumin (3.4-5.0) gm/dl Urine Ketones (Negative) SARS-CoV-2 (PCR) (Negative) Influenza Type A (PCR) (Neg) Influenza Type B (PCR) (Neg) RSV (RT-PCR) (Neg) 03/02/22 03/02/22 03/02/22 Range/Units 05:21 05:12 05:12 WBC 20.44 H (4.8-10.8) K/uL RBC 3.21 L (4.2-5.4) M/uL Hgb 9.0 L (12.0-16.0) g/dL POC Hgb 8.5 L (12.0-16.0) g/dl Hct 28.4 L (37-47) % POC Hct 25 L (37-47) % MCV 88.5 (80-100) fL MCH 28.0 (25-34) pg MCHC 31.7 L (32-36) g/dL RDW Std Deviation 46.9 H (36.4-46.3) fL RDW Coeff of Ana 14.4 (11.5-14.5) % Plt Count 89 L (130-400) K/uL MPV 10.6 H (7.4-10.4) fL Immature Gran % (Auto) 1.1 % Neut % (Auto) 82.3 % Lymph % (Auto) 6.5 % Carson % (Auto) 8.2 % Eos % (Auto) 1.8 % Baso % (Auto) 0.1 % Neut # (Auto) 16.83 H (1.4-6.5) K/uL Lymph # (Auto) 1.33 (1.2-3.4) K/uL Carson # (Auto) 1.68 H (0.11-0.59) K/uL Eos # (Auto) 0.36 (0-0.5) K/uL Baso # (Auto) 0.02 (0-0.2) K/uL Immature Gran # (Auto) 0.22 H (0.00-0.02) K/uL Absolute Nucleated RBC 0.02 H (0-0) K/uL Nucleated RBC % (auto) 0.1 % Basophilic Stippling 1+ PT (9.0-12.0) Seconds INR (0.9-1.1) APTT (21.0-31.0) Seconds PTT Ratio Sample Site L Radial POC pH 7.11 L* (7.35-7.45) POC pCO2 88 H (35-46) mmHg POC pO2 63 L (80-95) mmHg POC HCO3 28 H (19-24) rosalind/L POC Total CO2 31 (24-31) mmol/L POC Base Excess -1.0 (-9-1.8) rosalind/L ABG pH (Temp Correct) 7.127 L* (7.35-7.45) ABG pCO2 (Temp Corrct 85 H (35-46) mmHg POC ABG pO2 at Pt Temp 59 POC ABG O2 Sat 81.0 L (90-95) % Berto Test Pass O2 Delivery Device BIPAP POC O2 Rate 16 Minute Ventilation POC FiO2 50 % Tidal Volume PEEP IPAP 16 POC Sodium 140 (135-144) mmol/L Sodium 142 (136-145) mmol/L POC Potassium 3.4 (3.3-5.0) mmol/L Potassium 3.5 (3.5-5.1) mmol/L Chloride 108 H (98-107) mmol/L Carbon Dioxide 28 (21-32) mmol/L Anion Gap 6 (3-11) BUN 67 H (6-23) mg/dl Creatinine 1.77 H (0.6-1.2) mg/dl Est Cr Clr Drug Dosing 32.2 ml/min Est GFR ( Amer) 33.9 ml/min Est GFR (Non-Af Amer) 29.2 ml/min BUN/Creatinine Ratio 37.9 H (10-20) Glucose 98 (70-99(Fasting)) mg/dl POC Glucose (70-99) mg/dl Lactate (0.4-2.0) mmol/L Calcium 9.6 (8.5-10.1) mg/dl Phosphorus 4.8 D (2.5-4.9) mg/dl Magnesium 2.3 (1.7-2.4) mg/dl Total Bilirubin (0.2-1.0) mg/dl Direct Bilirubin (0-0.2) mg/dl AST (13-39) U/L ALT (7-52) U/L Alkaline Phosphatase (34-104) U/L Total Protein (6.0-8.3) gm/dl Albumin (3.4-5.0) gm/dl Urine Ketones (Negative) SARS-CoV-2 (PCR) (Negative) Influenza Type A (PCR) (Neg) Influenza Type B (PCR) (Neg) RSV (RT-PCR) (Neg) 03/01/22 03/01/22 03/01/22 Range/Units 23:50 19:30 18:31 WBC (4.8-10.8) K/uL RBC (4.2-5.4) M/uL Hgb (12.0-16.0) g/dL POC Hgb (12.0-16.0) g/dl Hct (37-47) % POC Hct (37-47) % MCV (80-100) fL MCH (25-34) pg MCHC (32-36) g/dL RDW Std Deviation (36.4-46.3) fL RDW Coeff of Ana (11.5-14.5) % Plt Count (130-400) K/uL MPV (7.4-10.4) fL Immature Gran % (Auto) % Neut % (Auto) % Lymph % (Auto) % Carson % (Auto) % Eos % (Auto) % Baso % (Auto) % Neut # (Auto) (1.4-6.5) K/uL Lymph # (Auto) (1.2-3.4) K/uL Carson # (Auto) (0.11-0.59) K/uL Eos # (Auto) (0-0.5) K/uL Baso # (Auto) (0-0.2) K/uL Immature Gran # (Auto) (0.00-0.02) K/uL Absolute Nucleated RBC (0-0) K/uL Nucleated RBC % (auto) % Basophilic Stippling PT (9.0-12.0) Seconds INR (0.9-1.1) APTT (21.0-31.0) Seconds PTT Ratio Sample Site POC pH (7.35-7.45) POC pCO2 (35-46) mmHg POC pO2 (80-95) mmHg POC HCO3 (19-24) rosalind/L POC Total CO2 (24-31) mmol/L POC Base Excess (-9-1.8) rosalind/L ABG pH (Temp Correct) (7.35-7.45) ABG pCO2 (Temp Corrct (35-46) mmHg POC ABG pO2 at Pt Temp POC ABG O2 Sat (90-95) % Berto Test O2 Delivery Device POC O2 Rate Minute Ventilation POC FiO2 % Tidal Volume PEEP IPAP POC Sodium (135-144) mmol/L Sodium (136-145) mmol/L POC Potassium (3.3-5.0) mmol/L Potassium (3.5-5.1) mmol/L Chloride (98-107) mmol/L Carbon Dioxide (21-32) mmol/L Anion Gap (3-11) BUN (6-23) mg/dl Creatinine (0.6-1.2) mg/dl Est Cr Clr Drug Dosing ml/min Est GFR ( Amer) ml/min Est GFR (Non-Af Amer) ml/min BUN/Creatinine Ratio (10-20) Glucose (70-99(Fasting)) mg/dl POC Glucose 97 108 H (70-99) mg/dl Lactate (0.4-2.0) mmol/L Calcium (8.5-10.1) mg/dl Phosphorus (2.5-4.9) mg/dl Magnesium (1.7-2.4) mg/dl Total Bilirubin (0.2-1.0) mg/dl Direct Bilirubin (0-0.2) mg/dl AST (13-39) U/L ALT (7-52) U/L Alkaline Phosphatase (34-104) U/L Total Protein (6.0-8.3) gm/dl Albumin (3.4-5.0) gm/dl Urine Ketones (Negative) SARS-CoV-2 (PCR) NEGATIVE (Negative) Influenza Type A (PCR) Negative (Neg) Influenza Type B (PCR) Negative (Neg) RSV (RT-PCR) Negative (Neg) 03/01/22 03/01/22 Range/Units 14:39 11:55 WBC (4.8-10.8) K/uL RBC (4.2-5.4) M/uL Hgb 8.9 L (12.0-16.0) g/dL POC Hgb (12.0-16.0) g/dl Hct 27.1 L (37-47) % POC Hct (37-47) % MCV (80-100) fL MCH (25-34) pg MCHC (32-36) g/dL RDW Std Deviation (36.4-46.3) fL RDW Coeff of Ana (11.5-14.5) % Plt Count (130-400) K/uL MPV (7.4-10.4) fL Immature Gran % (Auto) % Neut % (Auto) % Lymph % (Auto) % Carson % (Auto) % Eos % (Auto) % Baso % (Auto) % Neut # (Auto) (1.4-6.5) K/uL Lymph # (Auto) (1.2-3.4) K/uL Carson # (Auto) (0.11-0.59) K/uL Eos # (Auto) (0-0.5) K/uL Baso # (Auto) (0-0.2) K/uL Immature Gran # (Auto) (0.00-0.02) K/uL Absolute Nucleated RBC (0-0) K/uL Nucleated RBC % (auto) % Basophilic Stippling PT (9.0-12.0) Seconds INR (0.9-1.1) APTT (21.0-31.0) Seconds PTT Ratio Sample Site POC pH (7.35-7.45) POC pCO2 (35-46) mmHg POC pO2 (80-95) mmHg POC HCO3 (19-24) rosalind/L POC Total CO2 (24-31) mmol/L POC Base Excess (-9-1.8) rosalind/L ABG pH (Temp Correct) (7.35-7.45) ABG pCO2 (Temp Corrct (35-46) mmHg POC ABG pO2 at Pt Temp POC ABG O2 Sat (90-95) % Berto Test O2 Delivery Device POC O2 Rate Minute Ventilation POC FiO2 % Tidal Volume PEEP IPAP POC Sodium (135-144) mmol/L Sodium (136-145) mmol/L POC Potassium (3.3-5.0) mmol/L Potassium (3.5-5.1) mmol/L Chloride (98-107) mmol/L Carbon Dioxide (21-32) mmol/L Anion Gap (3-11) BUN (6-23) mg/dl Creatinine (0.6-1.2) mg/dl Est Cr Clr Drug Dosing ml/min Est GFR ( Amer) ml/min Est GFR (Non-Af Amer) ml/min BUN/Creatinine Ratio (10-20) Glucose (70-99(Fasting)) mg/dl POC Glucose 119 H (70-99) mg/dl Lactate (0.4-2.0) mmol/L Calcium (8.5-10.1) mg/dl Phosphorus (2.5-4.9) mg/dl Magnesium (1.7-2.4) mg/dl Total Bilirubin (0.2-1.0) mg/dl Direct Bilirubin (0-0.2) mg/dl AST (13-39) U/L ALT (7-52) U/L Alkaline Phosphatase (34-104) U/L Total Protein (6.0-8.3) gm/dl Albumin (3.4-5.0) gm/dl Urine Ketones (Negative) SARS-CoV-2 (PCR) (Negative) Influenza Type A (PCR) (Neg) Influenza Type B (PCR) (Neg) RSV (RT-PCR) (Neg) Resident Activity Tracking Resident Involvement: Resident Care Provided Care Provided: Adult Hospital Medicine
--- NOTE | 2022-03-02 12:15 | Ultrasound Report ---
BILATERAL LOWER EXTREMITY VENOUS DOPPLER HISTORY: Acute pain and swelling of the lower legs r/o DVT COMPARISON STUDY: Duplex venous Doppler study 09/29/2020 FINDINGS: There is normal compressibility, flow, and augmentation within the bilateral lower extremit y deep venous systems. Subcutaneous edema of the lower legs. IMPRESSION: No DVT within the right or left lower extremity. ACT 112: Negative or not required by law. Electronically signed by: Bal Wells M.D. 03/02/2022 12:14 PM
[2022-03-02] MEDS: PANTOprazole 40 MG in SYRINGE 0 ML IV SCH (12:24)
[2022-03-02] MEDS: TUBE FEEDING WATER FLUSH OG SCH ×3 (12:24→20:17)
--- NOTE | 2022-03-02 13:43 | Billing Data ---
Date of Service March 02, 2022 Coding Level of Care Code Critical Care 1st 30-74 mins Time Spent (min) 38
[2022-03-02] MEDS ORDERED: SUCCINYLCHOLINE CHLORIDE 20 MG/ML 10 ML VIAL IV ONE (15:19)
[2022-03-02] MEDS ORDERED: fentaNYL citrate 100 MCG/2 ML VIAL IV ONE (15:19)
[2022-03-02] MEDS ORDERED: MIDAZOLAM HCL 5 MG/ML VIAL IV ONE (15:19)
[2022-03-02] MEDS ORDERED: ETOMIDATE 2 MG/ML 20 ML VIAL IV ONE (15:19)
[2022-03-02] MEDS ORDERED: Nursing to Pharmacy Communication SCH (17:15)
[2022-03-02 17:46] LABS: BUN Creatinine Ratio 37.2 (10-20); Calcium 9.1 mg/dl (8.5-10.1); Creatinine Clr Calc Pharmacy 31.1 ml/min; Est GFR (African American) 32.5 ml/min; Est GFR (Non-African American) 28.1 ml/min; Potassium 3.8 mmol/L (3.5-5.1)
[2022-03-02] MEDS ORDERED: ACETAMINOPHEN 1,000 MG/100 ML VIAL IV PRN (17:58)
[2022-03-02] MEDS: SENNOSIDES 8.8 MG/5 ML UDC PO SCH (20:17)
[2022-03-03] MEDS: TUBE FEEDING WATER FLUSH OG SCH ×7 (00:14→23:43)
[2022-03-03] MEDS: INSULIN ASPART PER UNIT SC SCH ×5 (00:19→23:51)
[2022-03-03 04:19] LABS: iSTAT Allen Test Pass; iSTAT Art Bld Gas pCO2 Correct 43 mmHg (35-46); iSTAT Art Bld Gas pH Corrected 7.363 (7.35-7.45); iSTAT Arterial Blood Gas HCO3 25 meg/L (19-24); iSTAT Arterial Blood Gas pCO2 43 mmHg (35-46); iSTAT Arterial Blood Gas pH 7.36 (7.35-7.45); iSTAT Arterial Blood Gas pO2 62 mmHg (80-95); iSTAT Arterial Blood Gas pO2 C 62; iSTAT Carbon Dioxide 26 mmol/L (24-31); iSTAT FiO2 35 %; iSTAT Hematocrit 22 % (37-47); iSTAT Hemoglobin 7.5 g/dl (12.0-16.0); iSTAT Potassium 3.7 mmol/L (3.3-5.0); iSTAT Site L Radial; iSTAT Sodium 141 mmol/L (135-144)
[2022-03-03] MEDS: PIPERACILLIN/TAZOBACTAM 3.375 GM in DEXTROSE 5% 100 ML IV SCH ×3 (05:12→20:21)
[2022-03-03] MEDS: VALPROATE SOD 250 MG in DEXTROSE 5% 50 ML IV SCH ×4 (05:13→23:43)
[2022-03-03] MEDS ORDERED: LIDOCAINE 1% LOCAL 20 ML VIAL INFIL ONE (05:45)
[2022-03-03 05:52] LABS: Basophils # (auto) 0.02 K/uL (0-0.2); Basophils % (auto) 0.1 %; Eosinophils # (auto) 0.58 K/uL (0-0.5); Eosinophils % (auto) 4.2 %; Hematocrit (blood only) 23.7 % (37-47); Immature Granulocytes # (auto) 0.16 K/uL (0.00-0.02); Immature Granulocytes % (auto) 1.1 %; Lymphocytes # (auto) 1.61 K/uL (1.2-3.4); Lymphocytes % (auto) 11.5 %; Mean Corpuscular Hemoglobin 28.5 pg (25-34); Mean Corpuscular Hgb Conc 33.8 g/dL (32-36); Mean Corpuscular Volume 84.3 fL (80-100); Mean Platelet Volume 10.5 fL (7.4-10.4); Monocytes # (auto) 1.08 K/uL (0.11-0.59); Monocytes % (auto) 7.7 %; Neutrophils # (auto) 10.52 K/uL (1.4-6.5); Neutrophils % (auto) 75.4 %; Nucleated RBC # (auto) 0.04 K/uL (0-0); Nucleated RBC % (auto) 0.3 %; Platelet Count 121 K/uL (130-400); RDW Coefficient of Variation 14.7 % (11.5-14.5); RDW Standard Deviation 45.7 fL (36.4-46.3); Red Blood Count 2.81 M/uL (4.2-5.4); White Blood Count 13.97 K/uL (4.8-10.8)
[2022-03-03 06:24] LABS: Phosphorus 3.1 mg/dl (2.5-4.9)
[2022-03-03 06:25] LABS: BUN Creatinine Ratio 40.6 (10-20); Calcium 9.2 mg/dl (8.5-10.1); Creatinine Clr Calc Pharmacy 32.5 ml/min; Est GFR (African American) 34.3 ml/min; Est GFR (Non-African American) 29.6 ml/min; Magnesium 2.1 mg/dl (1.7-2.4); Potassium 3.7 mmol/L (3.5-5.1)
[2022-03-03] MEDS ORDERED: MIDAZOLAM HCL 1 MG/ML 2ML VIAL IV ONE (06:30)
[2022-03-03] MEDS ORDERED: VECURONIUM BROMIDE 10 MG VIAL IV ONE (06:30)
[2022-03-03] MEDS: FORMOTEROL 20 MCG/2 ML VIAL NEB SCH ×2 (06:31→20:12)
[2022-03-03] MEDS: BUDESONIDE 0.25 MG/2 ML VIAL (PULMICORT) NEB SCH ×2 (06:31→20:12)
[2022-03-03] MEDS ORDERED: fentaNYL citrate 100 MCG/2 ML VIAL ONE (06:55)
--- NOTE | 2022-03-03 07:26 | Procedure Note ---
Procedure Note Date of Service March 03, 2022 Note Procedure Date: Noted Above Procedure: Percutaneous Dilatational Tracheotomy with Bronchoscopic Guidance Pre-procedure Diagnosis & Indication: Chronic respiratory failure and need for ongoing mechanical ventilation Post-procedure Diagnosis: same as above Prior to Procedure: Informed Consent: The risks, benefits, indications, potential complications, and alternatives were explained to the patient's family and informed consent was obtained. Performed by: Rosi Lee DO Bronchoscopy Director Style: Kuldeep Worthington Preprocedure: The identity of the patient was confirmed and a bedside time out was performed. Independence protocol was followed for this procedure. Prior to the initiation of sedation or the procedure, a timeout was performed. The patients identity was verified by confirming the patients wrist band for name, date of , and medical record number. Everyone in the room was in agreement with the patient identify, the procedure to be performed, consent was in place and matched the planned procedure, and the procedure site. The area was cleaned with a CHG scrub and draped with large sterile barrier. Hand hygiene was performed, and cap, mask, sterile gown, and sterile gloves were worn. The patient was covered by a large sterile drape. Sterile technique was maintained for the entire procedure. Anesthesia: The patient was intubated and sedated prior to the procedure. Additional midazolam and fentanyl was given for deep sedation. Please refer to the accompanying procedural sedation form for additional details. Once the patient was adequately sedated, vecuronium was administered for paralysis. Description of Procedure: The patient was placed in the supine position. The anterior neck was prepped and draped in usual sterile fashion. 1% lidocaine was administered approximately 2 fingerbreadths above the sternal notch for local anesthesia. The bronchoscope was introduced through the endotracheal tube and the trachea was properly visualized. The endotracheal tube was then gradually withdrawn within the trachea under direct bronchoscopic visualization. The area of the surgical site was initially transilluminated, and proper midline position was confirmed by bouncing the needle from the tracheostomy tray over the trachea with bronchoscopic examination. The needle was advanced into the trachea and proper positioning was confirmed with direct visualization. The needle was then removed leaving a white outer cannula in position. The wire from the tracheostomy tray was then advanced through the white outer cannula. The cannula was then removed. The initial small, blue dilator was then advanced over the wire into the trachea for initial dilation. The large, tapered dilator was then advanced over the wire into the trachea. The dilator was removed leaving the wire and white inner cannula in position. A number 6 percutaneous Shiley tracheostomy tube with appropriate inner cannula was then advanced over the wire and white inner cannula into the trachea. Proper positioning was confirmed with bronchoscopic visualization. The tracheostomy tube was then sutured in place with four nylon sutures. It was further secured with a tracheostomy tie. Estimated blood loss: Less than 5 mL. Complications: None immediate. Coding CPT Codes ENT - ENT: 86519 Incision of windpipe ([id number]) [facility] [place] Procedure Codes (Charges) ENT ENT: 61495 Incision of windpipe
--- NOTE | 2022-03-03 07:35 | Procedure Note ---
Procedure Note Date of Service March 03, 2022 Note Procedure: Flexible Bronchoscopy for Visualization during Percutaneous Tracheostomy Placement Attending/Site Surveyor: Dr. Lee, Pedro Worthington PA-C Anesthetic/Sedation: Etomidate, Fentanyl Indication: Respiratory failure with ventilator dependence requiring multiple repeat intubations and need for ongoing ventilator support. Consent was signed and placed on the chart prior to procedure. Indication, risks, and benefits were explained at length. A time-out was completed verifying correct patient, procedure, site, positioning, and implant(s) or special equipment if applicable. After administration of IV Veccuronium and observance of effects of medication, the bronchoscope was inserted into the ET tube. Secretions suctioned to clear ETT. Visualization of the erik and lower airways without issue. After proper visualization, in coordination with RT, the cuff was partially deflated and the ETT was retracted slowly until transillumination of the anterior neck was appreciated by attending. At this point, the scope was focused at the anterior aspect of the trachea. The finder needle was visualized entering the anterior aspect of the trachea without penetration into the posterior wall. Guidewire was visualized descending the airway. Serial dilations were visualized closely without injury to the back wall. Cuffed tracheostomy tube was inserted and the ETT and bronchoscope were removed from the upper airway. The bronchoscope was then inserted into the tracheostomy tube. Lower airway was visualized. No bleeding into the lower airways. No significant drainage noted. ETT removed. Complications: NONE Impression: Successful Presents again Coding CPT Codes Pulmonary/Thoracic - Pulmonary and Thoracic: 72702 Bronchoscopy, reclear airway ([id number]) [facility] [place] Procedure Codes (Charges) Pulmonary/Thoracic Procedure 2: Pulmonary and Thoracic: 60132 Bronchoscopy, reclear airway
--- NOTE | 2022-03-03 08:12 | XRay Report ---
XR chest 1V portable CLINICAL HISTORY: s/p trach. . Evaluate positioning and follow-up right basilar opacity COMPARISON STUDY: 03/02/2022 TECHNIQUE: 1 view of the chest FINDINGS: Single frontal view of the chest demonstrates the cardiomediastinal silhouette to be within normal li mits. The patient is status post tracheostomy with the tracheostomy tube is midline. Compared to previous examination, there is again right lower lobe alveolar opacity characteristic of atelectasis versus early pneumonia. Left hemithorax is clear. There is blunting of the right costophr enic angle is well characteristic of small right pleural effusion. There is no definite left pleural effusion. There is no evidence for vascular congestion. There is no acute osseous pathology. IMPRESSION: 1. Status post tracheostomy. 2. Persistent right lower lobe alveolar opacity most characteristic of atelectasis versus early pneum onia. 3. This also evidence for small right pleural effusion. ACT 112: Negative or not required by law. Electronically signed by: Willy Valdes M.D. 03/03/2022 8:11 AM
--- NOTE | 2022-03-03 10:16 | Critical Care Progress Note ---
Date of Service March 03, 2022 Assessment & Plan (1) Admitted to intensive care unit: Plan: Reason Critically Ill: 66-year-old female with recurrent acute on chronic hypoxemic respiratory failure with hypercapnia requiring multiple intubations and close monitoring. Now s/p tracheostomy. NEURO - * CAM ICU: POSITIVE * Altered mental status: Secondary to acute hypercapnic respiratory failure * Continue IV Depakote per neuro recs --> switch to p.o. 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 * Metoprolol 5mg IV q4h prn systolic >180. * restarted home hydralazine * D/c'd levophed * +8.5L fluid balance since admission. Consider diuresis if kidneys allow. * Monitor on telemetry * Bilateral venous doppler neg for DVT RESPIRATORY - * Acute on chronic hypoxemic respiratory failure with hypercapnia: Poor compliance. * Chest XR (02/28) showed mediastinal shift to right with right lower lobe collapse. Subsequent bronchoscopy showed secretions but not enough to cause collapse. Most likely was due to aspiration pneumonia. * Chest x-ray (03/03) persistent RLL alveolar opacity. * Continue budesonide and Performist BID for history of COPD. * Tracheostomy performed this morning with success. Continue with mechanical ventilation. GI/NUTRITION - * Tube feeds * ppx: protonix RENAL/LYTES - * GERALD likely from poor p.o. intake. * Hold IVF for now 2/2 fluid overload. * Replete lytes per protocol. Strict I&Os - * Degroot in place - Strict I&Os. ENDO - * DMII * BSGs per unit protocol. ISS --> gtt per unit policy. HEME - * Hgb 8, decreased. Monitor closely. * Thrombocytopenia improving. * HIT antibodies pending ID - * Repeat blood cultures no growth.Repeat sputum/lavage cx pending. Lumbar puncture from earlier in the hospitalization negative. Prior sputum and blood cultures negative.Repeat urine culture neg.Pro-[place] negative. * Repeat nasal MRSA swab neg. Continue zosyn for suspected pneumonia. LINES/IV ACCESS - * PIVs * LEFT Subclavian CVL * Degroot DVT PROPHYLAXIS - * Heparin held s/p procedure * SCDs Thank you for allowing us to participate in the care of this patient.Please refer to my attending physician's documentation for any further recommendations. (2) Acute on chronic respiratory failure with hypoxia and hypercapnia: (3) Acute metabolic encephalopathy: Admission and Anticipated Discharge Date Admission Date: February 20, 2022 Supervising Physician Co-Signing Physician Notes Dr. Kemp was the resident-physician during care of patient. I separately evaluated patient for jane portions of the history and the exam. I was present during the critical portion of medical decision making, and I discussed the case with the resident. I generally agree with the findings and plan except for any additions/exceptions noted. Patient seen and examined at bedside. No acute distress. Patient was intubated earlier today because she was somnolent even on BiPAP and hypercapnic. Patient was RASS -2, she was on Levophed 0.07 with MAP in the 80s, propofol 20 and fentanyl 25 Constitutional: No acute distress HEENT: EOMI, PERRLA, positive trach Respiratory system: Decreased air entry bilaterally, no wheeze, no rhonchi, mild crackles bilaterally CVS: S1-S2 positive, no murmurs or gallops Abdomen: Soft, nontender, nondistended, positive bowel sounds x4, obese Extremities: +2 pulses bilaterally radialis/ dorsalis pedis, no cyanosis, +1 pitting edema bilateral lower extremity Neuro: RASS -2 Psych: Unable to assess G/U: Positive Degroot --Prophylaxis VTE: Heparin on hold, IPC's GI: Pantoprazole Lines: Left subclavian, right radial, positive Degroot, positive trach 03/02/2022 Diet: Tube feeds Plan: In/out: +374, urine output 810 AB.36/43/62 on PEEP of 6, 35% respiratory to 28 S/p tracheostomy today. Chest x-ray still shows right lower lobe opacity with mediastinal shift to the right Follow-up HIT antibodies. Continue to hold heparin. Continue with SCDs. Try to wean off Levophed. DC fentanyl drip and give as needed fentanyl on as- needed basis Continue with Suzie Hernandez working on LTAC placement I have personally spent 35 minutes of critical care time in the direct management of this patient. This is a life/limb threatening event. This includes time spent evaluating patient, direct bedside care, chart review, pl acing orders, interpretation of diagnostic studies, discussion with consultants, patient, and/or family members regarding treatment decisions, as well as other required patient management activities. This time is exclusive of all separately billable procedures, and teaching time and separate from and in addition to any other critical care service time. Subjective Earlier this morning tracheostomy performed 2/2 recurrent intubations. Patient seen and examined this morning. Sedated on ventilator, difficult to arouse. Does not appear to be in respiratory distress. Review of Systems Review of Systems: Unobtainable due to reduced consciousness Physical Exam Physical Exam: Constitutional: s/p tracheostomy on ventilator, sedated, in no acute distress. Vitals as above. HEENT: conjunctivae normal, anicteric sclerae, +trach tube Neck: trachea midline, no thyromegaly Lungs: Coarse breath sounds bilaterally with crackles R>L.No wheezes. Cardiac: RRR, no murmur, 1+ pitting edema lower extremities, 2+ radialis/dorsalis pedal pulses Abdomen: normal bowel sounds, soft, nontender, no hepatosplenomegaly MSK: No cyanosis or clubbing. Skin: No rashes, extremities cool to touch, dry. Neurologic: PERRL, accommodation nl Results & Data Results & Data ([facility]) Vital Signs (Past 12 Hours) Vital Signs Temp Pulse Pulse Resp BP Pulse Ox 03/03/22 07:28 68 28 H 96 03/03/22 06:32 65 66 28 H 99 03/03/22 06:00 36.9 C 68 28 H 187/79 H 100 03/03/22 05:30 37.0 C 69 28 H 112/57 L 94 03/03/22 05:00 37.3 C 73 28 H 183/75 H 95 03/03/22 04:30 37.1 C 65 28 H 108/49 L 94 03/03/22 04:00 37.3 C 71 28 H 191/94 H 94 03/03/22 03:36 61 28 H 95 03/03/22 03:31 36.9 C 71 24 186/74 H 97 03/03/22 03:00 36.9 C 64 28 H 124/59 L 94 03/03/22 02:30 37.0 C 63 28 H 121/61 94 03/03/22 02:00 37.0 C 66 28 H 91/51 L 94 03/03/22 01:30 37.0 C 67 28 H 106/52 L 94 03/03/22 01:00 37.1 C 72 28 H 121/77 94 03/03/22 00:01 37.0 C 74 28 H 174/95 H 93 03/03/22 00:00 65 03/02/22 23:22 62 28 H 92 03/02/22 23:00 37.0 C 62 28 H 136/64 99 Laboratory Results 03/03/22 03/03/22 03/03/22 Range/Units 08:29 05:23 05:23 WBC 13.97 H (4.8-10.8) K/uL RBC 2.81 L (4.2-5.4) M/uL Hgb 8.0 L (12.0-16.0) g/dL POC Hgb (12.0-16.0) g/dl Hct 23.7 L (37-47) % POC Hct (37-47) % MCV 84.3 (80-100) fL MCH 28.5 (25-34) pg MCHC 33.8 (32-36) g/dL RDW Std Deviation 45.7 (36.4-46.3) fL RDW Coeff of Ana 14.7 H (11.5-14.5) % Plt Count 121 L (130-400) K/uL MPV 10.5 H (7.4-10.4) fL Immature Gran % (Auto) 1.1 % Neut % (Auto) 75.4 % Lymph % (Auto) 11.5 % Bibb % (Auto) 7.7 % Eos % (Auto) 4.2 % Baso % (Auto) 0.1 % Neut # (Auto) 10.52 H (1.4-6.5) K/uL Lymph # (Auto) 1.61 (1.2-3.4) K/uL Bibb # (Auto) 1.08 H (0.11-0.59) K/uL Eos # (Auto) 0.58 H (0-0.5) K/uL Baso # (Auto) 0.02 (0-0.2) K/uL Immature Gran # (Auto) 0.16 H (0.00-0.02) K/uL Absolute Nucleated RBC 0.04 H (0-0) K/uL Nucleated RBC % (auto) 0.3 % PT (9.0-12.0) Seconds INR (0.9-1.1) APTT (21.0-31.0) Seconds PTT Ratio Sample Site POC pH (7.35-7.45) POC pCO2 (35-46) mmHg POC pO2 (80-95) mmHg POC HCO3 (19-24) rosalind/L POC Total CO2 (24-31) mmol/L POC Base Excess (-9-1.8) rosalind/L ABG pH (Temp Correct) (7.35-7.45) ABG pCO2 (Temp Corrct (35-46) mmHg POC ABG pO2 at Pt Temp POC ABG O2 Sat (90-95) % Berto Test O2 Delivery Device POC O2 Rate POC FiO2 % Tidal Volume PEEP POC Sodium (135-144) mmol/L Sodium 142 (136-145) mmol/L POC Potassium (3.3-5.0) mmol/L Potassium 3.7 (3.5-5.1) mmol/L Chloride 109 H (98-107) mmol/L Carbon Dioxide 25 (21-32) mmol/L Anion Gap 8 (3-11) BUN 71 H (6-23) mg/dl Creatinine 1.75 H (0.6-1.2) mg/dl Est Cr Clr Drug Dosing 32.5 ml/min Est GFR ( Amer) 34.3 ml/min Est GFR (Non-Af Amer) 29.6 ml/min BUN/Creatinine Ratio 40.6 H (10-20) Glucose 83 (70-99(Fasting)) mg/dl POC Glucose (70-99) mg/dl Lactate (0.4-2.0) mmol/L Calcium 9.2 (8.5-10.1) mg/dl Phosphorus 3.1 D (2.5-4.9) mg/dl Magnesium 2.1 (1.7-2.4) mg/dl Total Bilirubin (0.2-1.0) mg/dl Direct Bilirubin (0-0.2) mg/dl AST (13-39) U/L ALT (7-52) U/L Alkaline Phosphatase (34-104) U/L Total Protein (6.0-8.3) gm/dl Albumin (3.4-5.0) gm/dl Serotonin Release Assay Pending Urine Ketones (Negative) Heparin Depend Plt Ab Pending 03/03/22 03/03/22 03/03/22 Range/Units 05:22 04:05 00:17 WBC (4.8-10.8) K/uL RBC (4.2-5.4) M/uL Hgb (12.0-16.0) g/dL POC Hgb 7.5 L (12.0-16.0) g/dl Hct (37-47) % POC Hct 22 L (37-47) % MCV (80-100) fL MCH (25-34) pg MCHC (32-36) g/dL RDW Std Deviation (36.4-46.3) fL RDW Coeff of Ana (11.5-14.5) % Plt Count (130-400) K/uL MPV (7.4-10.4) fL Immature Gran % (Auto) % Neut % (Auto) % Lymph % (Auto) % Bibb % (Auto) % Eos % (Auto) % Baso % (Auto) % Neut # (Auto) (1.4-6.5) K/uL Lymph # (Auto) (1.2-3.4) K/uL Bibb # (Auto) (0.11-0.59) K/uL Eos # (Auto) (0-0.5) K/uL Baso # (Auto) (0-0.2) K/uL Immature Gran # (Auto) (0.00-0.02) K/uL Absolute Nucleated RBC (0-0) K/uL Nucleated RBC % (auto) % PT (9.0-12.0) Seconds INR (0.9-1.1) APTT (21.0-31.0) Seconds PTT Ratio Sample Site L Radial POC pH 7.36 (7.35-7.45) POC pCO2 43 (35-46) mmHg POC pO2 62 L (80-95) mmHg POC HCO3 25 H (19-24) rosalind/L POC Total CO2 26 (24-31) mmol/L POC Base Excess -1.0 (-9-1.8) rosalind/L ABG pH (Temp Correct) 7.363 (7.35-7.45) ABG pCO2 (Temp Corrct 43 (35-46) mmHg POC ABG pO2 at Pt Temp 62 POC ABG O2 Sat 90.0 (90-95) % Berto Test Pass O2 Delivery Device Ventilator POC O2 Rate 28 POC FiO2 35 % Tidal Volume 280 PEEP 6 POC Sodium 141 (135-144) mmol/L Sodium (136-145) mmol/L POC Potassium 3.7 (3.3-5.0) mmol/L Potassium (3.5-5.1) mmol/L Chloride (98-107) mmol/L Carbon Dioxide (21-32) mmol/L Anion Gap (3-11) BUN (6-23) mg/dl Creatinine (0.6-1.2) mg/dl Est Cr Clr Drug Dosing ml/min Est GFR ( Amer) ml/min Est GFR (Non-Af Amer) ml/min BUN/Creatinine Ratio (10-20) Glucose (70-99(Fasting)) mg/dl POC Glucose 89 90 (70-99) mg/dl Lactate (0.4-2.0) mmol/L Calcium (8.5-10.1) mg/dl Phosphorus (2.5-4.9) mg/dl Magnesium (1.7-2.4) mg/dl Total Bilirubin (0.2-1.0) mg/dl Direct Bilirubin (0-0.2) mg/dl AST (13-39) U/L ALT (7-52) U/L Alkaline Phosphatase (34-104) U/L Total Protein (6.0-8.3) gm/dl Albumin (3.4-5.0) gm/dl Serotonin Release Assay Urine Ketones (Negative) Heparin Depend Plt Ab 03/02/22 03/02/22 03/02/22 Range/Units 18:04 17:17 16:44 WBC (4.8-10.8) K/uL RBC (4.2-5.4) M/uL Hgb (12.0-16.0) g/dL POC Hgb (12.0-16.0) g/dl Hct (37-47) % POC Hct (37-47) % MCV (80-100) fL MCH (25-34) pg MCHC (32-36) g/dL RDW Std Deviation (36.4-46.3) fL RDW Coeff of Ana (11.5-14.5) % Plt Count (130-400) K/uL MPV (7.4-10.4) fL Immature Gran % (Auto) % Neut % (Auto) % Lymph % (Auto) % Bibb % (Auto) % Eos % (Auto) % Baso % (Auto) % Neut # (Auto) (1.4-6.5) K/uL Lymph # (Auto) (1.2-3.4) K/uL Bibb # (Auto) (0.11-0.59) K/uL Eos # (Auto) (0-0.5) K/uL Baso # (Auto) (0-0.2) K/uL Immature Gran # (Auto) (0.00-0.02) K/uL Absolute Nucleated RBC (0-0) K/uL Nucleated RBC % (auto) % PT (9.0-12.0) Seconds INR (0.9-1.1) APTT (21.0-31.0) Seconds PTT Ratio Sample Site POC pH (7.35-7.45) POC pCO2 (35-46) mmHg POC pO2 (80-95) mmHg POC HCO3 (19-24) rosalind/L POC Total CO2 (24-31) mmol/L POC Base Excess (-9-1.8) rosalind/L ABG pH (Temp Correct) (7.35-7.45) ABG pCO2 (Temp Corrct (35-46) mmHg POC ABG pO2 at Pt Temp POC ABG O2 Sat (90-95) % Berto Test O2 Delivery Device POC O2 Rate POC FiO2 % Tidal Volume PEEP POC Sodium (135-144) mmol/L Sodium 140 (136-145) mmol/L POC Potassium (3.3-5.0) mmol/L Potassium 3.8 (3.5-5.1) mmol/L Chloride 109 H (98-107) mmol/L Carbon Dioxide 25 (21-32) mmol/L Anion Gap 6 (3-11) BUN 68 H (6-23) mg/dl Creatinine 1.83 H (0.6-1.2) mg/dl Est Cr Clr Drug Dosing 31.1 ml/min Est GFR ( Amer) 32.5 ml/min Est GFR (Non-Af Amer) 28.1 ml/min BUN/Creatinine Ratio 37.2 H (10-20) Glucose 89 (70-99(Fasting)) mg/dl POC Glucose 85 114 H (70-99) mg/dl Lactate (0.4-2.0) mmol/L Calcium 9.1 (8.5-10.1) mg/dl Phosphorus (2.5-4.9) mg/dl Magnesium (1.7-2.4) mg/dl Total Bilirubin (0.2-1.0) mg/dl Direct Bilirubin (0-0.2) mg/dl AST (13-39) U/L ALT (7-52) U/L Alkaline Phosphatase (34-104) U/L Total Protein (6.0-8.3) gm/dl Albumin (3.4-5.0) gm/dl Serotonin Release Assay Urine Ketones (Negative) Heparin Depend Plt Ab 03/02/22 03/02/22 03/02/22 Range/Units 14:49 12:12 10:41 WBC (4.8-10.8) K/uL RBC (4.2-5.4) M/uL Hgb (12.0-16.0) g/dL POC Hgb (12.0-16.0) g/dl Hct (37-47) % POC Hct (37-47) % MCV (80-100) fL MCH (25-34) pg MCHC (32-36) g/dL RDW Std Deviation (36.4-46.3) fL RDW Coeff of Ana (11.5-14.5) % Plt Count (130-400) K/uL MPV (7.4-10.4) fL Immature Gran % (Auto) % Neut % (Auto) % Lymph % (Auto) % Bibb % (Auto) % Eos % (Auto) % Baso % (Auto) % Neut # (Auto) (1.4-6.5) K/uL Lymph # (Auto) (1.2-3.4) K/uL Bibb # (Auto) (0.11-0.59) K/uL Eos # (Auto) (0-0.5) K/uL Baso # (Auto) (0-0.2) K/uL Immature Gran # (Auto) (0.00-0.02) K/uL Absolute Nucleated RBC (0-0) K/uL Nucleated RBC % (auto) % PT (9.0-12.0) Seconds INR (0.9-1.1) APTT (21.0-31.0) Seconds PTT Ratio Sample Site POC pH (7.35-7.45) POC pCO2 (35-46) mmHg POC pO2 (80-95) mmHg POC HCO3 (19-24) rosalind/L POC Total CO2 (24-31) mmol/L POC Base Excess (-9-1.8) rosalind/L ABG pH (Temp Correct) (7.35-7.45) ABG pCO2 (Temp Corrct (35-46) mmHg POC ABG pO2 at Pt Temp POC ABG O2 Sat (90-95) % Berto Test O2 Delivery Device POC O2 Rate POC FiO2 % Tidal Volume PEEP POC Sodium (135-144) mmol/L Sodium (136-145) mmol/L POC Potassium (3.3-5.0) mmol/L Potassium (3.5-5.1) mmol/L Chloride (98-107) mmol/L Carbon Dioxide (21-32) mmol/L Anion Gap (3-11) BUN (6-23) mg/dl Creatinine (0.6-1.2) mg/dl Est Cr Clr Drug Dosing ml/min Est GFR ( Amer) ml/min Est GFR (Non-Af Amer) ml/min BUN/Creatinine Ratio (10-20) Glucose (70-99(Fasting)) mg/dl POC Glucose 114 H (70-99) mg/dl Lactate (0.4-2.0) mmol/L Calcium (8.5-10.1) mg/dl Phosphorus (2.5-4.9) mg/dl Magnesium (1.7-2.4) mg/dl Total Bilirubin (0.2-1.0) mg/dl Direct Bilirubin (0-0.2) mg/dl AST (13-39) U/L ALT (7-52) U/L Alkaline Phosphatase (34-104) U/L Total Protein (6.0-8.3) gm/dl Albumin (3.4-5.0) gm/dl Serotonin Release Assay Pending Urine Ketones Trace H (Negative) Heparin Depend Plt Ab Pending 03/02/22 03/02/22 03/02/22 Range/Units 10:15 10:15 10:15 WBC (4.8-10.8) K/uL RBC (4.2-5.4) M/uL Hgb (12.0-16.0) g/dL POC Hgb (12.0-16.0) g/dl Hct (37-47) % POC Hct (37-47) % MCV (80-100) fL MCH (25-34) pg MCHC (32-36) g/dL RDW Std Deviation (36.4-46.3) fL RDW Coeff of Ana (11.5-14.5) % Plt Count (130-400) K/uL MPV (7.4-10.4) fL Immature Gran % (Auto) % Neut % (Auto) % Lymph % (Auto) % Bibb % (Auto) % Eos % (Auto) % Baso % (Auto) % Neut # (Auto) (1.4-6.5) K/uL Lymph # (Auto) (1.2-3.4) K/uL Bibb # (Auto) (0.11-0.59) K/uL Eos # (Auto) (0-0.5) K/uL Baso # (Auto) (0-0.2) K/uL Immature Gran # (Auto) (0.00-0.02) K/uL Absolute Nucleated RBC (0-0) K/uL Nucleated RBC % (auto) % PT 11.1 (9.0-12.0) Seconds INR 1.0 (0.9-1.1) APTT 32.5 H (21.0-31.0) Seconds PTT Ratio 1.2 Sample Site POC pH (7.35-7.45) POC pCO2 (35-46) mmHg POC pO2 (80-95) mmHg POC HCO3 (19-24) rosalind/L POC Total CO2 (24-31) mmol/L POC Base Excess (-9-1.8) rosalind/L ABG pH (Temp Correct) (7.35-7.45) ABG pCO2 (Temp Corrct (35-46) mmHg POC ABG pO2 at Pt Temp POC ABG O2 Sat (90-95) % Berto Test O2 Delivery Device POC O2 Rate POC FiO2 % Tidal Volume PEEP POC Sodium (135-144) mmol/L Sodium (136-145) mmol/L POC Potassium (3.3-5.0) mmol/L Potassium (3.5-5.1) mmol/L Chloride (98-107) mmol/L Carbon Dioxide (21-32) mmol/L Anion Gap (3-11) BUN (6-23) mg/dl Creatinine (0.6-1.2) mg/dl Est Cr Clr Drug Dosing ml/min Est GFR ( Amer) ml/min Est GFR (Non-Af Amer) ml/min BUN/Creatinine Ratio (10-20) Glucose (70-99(Fasting)) mg/dl POC Glucose (70-99) mg/dl Lactate 0.7 (0.4-2.0) mmol/L Calcium (8.5-10.1) mg/dl Phosphorus (2.5-4.9) mg/dl Magnesium (1.7-2.4) mg/dl Total Bilirubin 0.3 (0.2-1.0) mg/dl Direct Bilirubin 0.1 (0-0.2) mg/dl AST 19 (13-39) U/L ALT 21 (7-52) U/L Alkaline Phosphatase 58 (34-104) U/L Total Protein 4.9 L (6.0-8.3) gm/dl Albumin 2.5 L (3.4-5.0) gm/dl Serotonin Release Assay Urine Ketones (Negative) Heparin Depend Plt Ab 03/02/22 Range/Units 10:15 WBC (4.8-10.8) K/uL RBC (4.2-5.4) M/uL Hgb (12.0-16.0) g/dL POC Hgb (12.0-16.0) g/dl Hct (37-47) % POC Hct (37-47) % MCV (80-100) fL MCH (25-34) pg MCHC (32-36) g/dL RDW Std Deviation (36.4-46.3) fL RDW Coeff of Ana (11.5-14.5) % Plt Count 109 L (130-400) K/uL MPV (7.4-10.4) fL Immature Gran % (Auto) % Neut % (Auto) % Lymph % (Auto) % Bibb % (Auto) % Eos % (Auto) % Baso % (Auto) % Neut # (Auto) (1.4-6.5) K/uL Lymph # (Auto) (1.2-3.4) K/uL Bibb # (Auto) (0.11-0.59) K/uL Eos # (Auto) (0-0.5) K/uL Baso # (Auto) (0-0.2) K/uL Immature Gran # (Auto) (0.00-0.02) K/uL Absolute Nucleated RBC (0-0) K/uL Nucleated RBC % (auto) % PT (9.0-12.0) Seconds INR (0.9-1.1) APTT (21.0-31.0) Seconds PTT Ratio Sample Site POC pH (7.35-7.45) POC pCO2 (35-46) mmHg POC pO2 (80-95) mmHg POC HCO3 (19-24) rosalind/L POC Total CO2 (24-31) mmol/L POC Base Excess (-9-1.8) rosalind/L ABG pH (Temp Correct) (7.35-7.45) ABG pCO2 (Temp Corrct (35-46) mmHg POC ABG pO2 at Pt Temp POC ABG O2 Sat (90-95) % Berto Test O2 Delivery Device POC O2 Rate POC FiO2 % Tidal Volume PEEP POC Sodium (135-144) mmol/L Sodium (136-145) mmol/L POC Potassium (3.3-5.0) mmol/L Potassium (3.5-5.1) mmol/L Chloride (98-107) mmol/L Carbon Dioxide (21-32) mmol/L Anion Gap (3-11) BUN (6-23) mg/dl Creatinine (0.6-1.2) mg/dl Est Cr Clr Drug Dosing ml/min Est GFR ( Amer) ml/min Est GFR (Non-Af Amer) ml/min BUN/Creatinine Ratio (10-20) Glucose (70-99(Fasting)) mg/dl POC Glucose (70-99) mg/dl Lactate (0.4-2.0) mmol/L Calcium (8.5-10.1) mg/dl Phosphorus (2.5-4.9) mg/dl Magnesium (1.7-2.4) mg/dl Total Bilirubin (0.2-1.0) mg/dl Direct Bilirubin (0-0.2) mg/dl AST (13-39) U/L ALT (7-52) U/L Alkaline Phosphatase (34-104) U/L Total Protein (6.0-8.3) gm/dl Albumin (3.4-5.0) gm/dl Serotonin Release Assay Urine Ketones (Negative) Heparin Depend Plt Ab Resident Activity Tracking Resident Involvement: Resident Care Provided Care Provided: Adult Hospital Medicine
--- NOTE | 2022-03-03 11:28 | XRay Report ---
XR KUB/Abdomen 1 view CLINICAL HISTORY: New NG tube placed. COMPARISON STUDY: 11/01/2020 TECHNIQUE: Single view of the abdomen. FINDINGS: The bowel gas pattern is within normal limits without evidence for dilatation or obstruction. There h as been placement of a feeding tube with its tip in the distal body the stomach. There is no evidence for organomegaly or gross intra-abdominal mass. No abnormal calcifications are seen along the course of the urinary tracts bilaterally. No acute osseous pathology. IMPRESSION: 1. No acute intra-abdominal abnormality. 2. Tip of feeding tube in the distal body of the stomach. ACT 112: Negative or not required by law. Electronically signed by: Willy Valdes M.D. 03/03/2022 11:27 AM
[2022-03-03] MEDS: PANTOprazole 40 MG in SYRINGE 0 ML IV SCH (12:41)
[2022-03-03] MEDS: NOREPINEPHRINE/D5W 4 MG/250 ML PLCT IV SCH (12:41)
--- NOTE | 2022-03-03 14:37 | Electrocardiogram Report ---
Test Reason : Blood Pressure : / mmHG Vent. Rate : 034 BPM Atrial Rate : 034 BPM P-R Int : 138 ms QRS Dur : 086 ms QT Int : 438 ms P-R-T Axes : 022 010 028 degrees QTc Int : 329 ms Marked sinus bradycardia with nonconducted PACs Low voltage QRS Abnormal ECG When compared with ECG of 22-FEB-2022 03:38, Vent. rate has decreased BY 87 BPM Confirmed by Nghia Kapadia ([id number]) on 03/03/2022 2:37:40 PM Referred By: REFERRED SELF Confirmed By:Nghia Kapadia
[2022-03-03] MEDS: hydrALAZINE TAB 50 MG TAB PO SCH ×2 (16:08→20:22)
[2022-03-03] MEDS: PEPTAMEN 1.5 CAL 1,000 ML BAG NG SCH (16:18)
--- NOTE | 2022-03-03 16:26 | Hospitalist Progress Note ---
Date of Service March 03, 2022 Assessment & Plan (1) Aspiration pneumonia: Plan: 03/02/22 Acute respiratory failure with hypercapnia and acidemia, failed Bipap re intubated and ventilated tracheostomy placed CT chest 02/27/22 with secretions/debris in RLL airway IV zosyn. s/p bronch by Dr Latham 02/28/22 - culture negative. blood cultures 02/26/22 negative. (2) Acute on chronic respiratory failure with hypoxia and hypercapnia: Plan: Recurrent, severe acute respiratory acidosis Re intubated 03/02/22 Developed aspiration pneumonia with previous decline 02/27/22 (3) Acute metabolic encephalopathy: Plan: 02/26/22 - developed severely altered mental status. 2nd to severe respiratory acidosis & hypothermia at that time. MRI brain from earlier in the stay without acute or chronic CVA, ICH, etc. Despite Rx of respiratory acidosis (with intubation/mech ventilation) her mental status remains very altered. Depakote level not toxic. Ammonia level wnl. TSH wnl. (4) Sepsis: Plan: Meningitis ruled out early in stay s/p normal LP. Had been on cefepime + doxycycline developed aspiration pneumonia transitioned to zosyn. cx's negative. (5) Acute kidney injury: Plan: Likely ATN from prerenal causes. Obstruction ruled out with negative CT a/p. (6) Seizure-like activity: Plan: Reported and witnessed by EMS just prior to admission. EEG without seizure activity. MRI brain negative. Seen by neurology earlier this stay - depakote advised. depakote repeat level sl low 03/03/22 (7) Elevated troponin: Plan: Peak HS trop was 187 earlier in stay -- likely 2nd to myocardial demand ischemia in setting of respiratory failure. (8) Chronic kidney disease, stage 3a: (9) Hypertension: (10) COPD (chronic obstructive pulmonary disease): (11) Mastoiditis: Plan: b/l - seen on MRI brain. clinically there is no evidence of such on exam =- no inflammation/swelling/tenderness over either mastoid; ears symmetric; etc. (12) Pulmonary nodules: Plan: Right lower lobe nodule seen on CT chest earlier in the stay. Follow-up CT chest 3 months. (13) DVT prophylaxis: Plan: heparin 5000 TID (14) Hypothermia: Plan: Resolved. (15) Empty sella: Plan: Seen on MRI brain earlier this admission. In light of recurrent sepsis-like picture, resp failure, low BP, etc -- TSH, FT4, and cortisol - all wnl. (16) Anemia: Plan: slightly low at 8, multifactoral , no obvious signs of blood loss, Admission and Anticipated Discharge Date Admission Date: February 20, 2022 Subjective Earlier this morning tracheostomy performed 03/03/22 recurrent intubations. Patient seen and examined this morning. Sedated on ventilator, difficult to arouse. Does not appear to be in respiratory distress.tracheostomy site looks clean and dry Review of Systems Review of Systems: Unobtainable due to cognitive status and Unobtainable due to endotracheal tube Physical Exam Physical Exam: The patient appeared stable and supported Vital signs as documented. trache in place and ventilating well Lungs are coarse and supported Cardiac exam, Rhythm is regular.. No murmurs, rubs or gallops. Abdominal exam reveals normal bowel sounds, soft Extremities are trace edematous and both pedal pulses are normal. Results & Data Results & Data ([facility]) Vital Signs (Past 12 Hours) Vital Signs Temp Pulse Pulse Resp BP Pulse Ox 03/03/22 13:00 98.4 F 70 22 156/74 H 96 03/03/22 12:00 98.1 F 74 23 169/77 H 94 03/03/22 11:53 98.1 F 66 22 108/48 L 93 03/03/22 11:50 98.1 F 62 22 94 03/03/22 11:36 98.1 F 69 23 88/49 L 95 03/03/22 11:30 97.9 F 70 23 96 03/03/22 11:00 98.1 F 66 19 102/47 L 94 03/03/22 10:30 98.4 F 83 19 107/63 94 03/03/22 10:10 75 23 94 03/03/22 10:00 98.2 F 71 22 154/71 H 100 03/03/22 09:31 98.2 F 75 22 93 03/03/22 09:00 98.2 F 71 22 144/59 H 93 03/03/22 08:53 98.4 F 78 22 92 03/03/22 08:30 98.6 F 68 22 123/58 L 91 03/03/22 08:10 99.0 F 69 20 137/84 94 03/03/22 08:01 99.0 F 65 28 H 99 03/03/22 08:00 99.0 F 66 28 H 99 03/03/22 07:41 99.1 F 67 28 H 80/51 L 91 03/03/22 07:40 99.1 F 67 28 H 92 03/03/22 07:38 99.1 F 65 28 H 94 03/03/22 07:36 99.1 F 65 28 H 107/60 97 03/03/22 07:34 99.1 F 69 28 H 134/72 100 03/03/22 07:32 99.1 F 67 28 H 169/95 H 100 03/03/22 07:31 99.1 F 68 28 H 180/103 H 100 03/03/22 07:28 99.1 F 69 28 H 100 03/03/22 07:26 99.1 F 73 28 H 183/120 H 100 03/03/22 07:25 99.1 F 75 25 H 191/112 H 100 03/03/22 07:22 99.1 F 66 28 H 155/77 H 100 03/03/22 07:20 99.1 F 66 28 H 170/84 H 100 03/03/22 07:18 99.1 F 68 28 H 181/87 H 100 03/03/22 07:17 99.0 F 73 28 H 176/93 H 100 03/03/22 07:14 99.0 F 67 28 H 100 03/03/22 06:32 65 66 28 H 99 03/03/22 06:00 98.4 F 68 28 H 187/79 H 100 03/03/22 05:30 98.6 F 69 28 H 112/57 L 94 03/03/22 05:00 99.1 F 73 28 H 183/75 H 95 03/03/22 04:30 98.8 F 65 28 H 108/49 L 94 PG Care Time/CCT Total # of Minutes Spent Total Time Spent with Patient: Total time spent is greater than 50% in coordination of care (as documented) at patient's floor/unit and/or counseling patient: Coding Level of Care Code 82710 Subseq Hosp Care Lvl 2 Diagnoses Aspiration pneumonia J69.0 Acute on chronic respiratory failure with hypoxia and hypercapnia J96.21; J96.22 Acute metabolic encephalopathy G93.41 Sepsis A41.9 Acute kidney injury N17.9 Seizure-like activity R56.9 Elevated troponin R77.8 Chronic kidney disease, stage 3a N18.31 Hypertension I10 COPD (chronic obstructive pulmonary disease) J44.9 COPD type: unspecified COPD Mastoiditis H70.90 Pulmonary nodules R91.8 DVT prophylaxis Z29.9 Hypothermia T68.XXXA Empty sella E23.6 Anemia D64.9 (1) COPD (chronic obstructive pulmonary disease) COPD type: unspecified COPD Qualified Code(s): J44.9 - Chronic obstructive pulmonary disease, unspecified
--- NOTE | 2022-03-03 17:32 | Billing Data ---
Date of Service March 03, 2022 Coding Level of Care Code Critical Care 1st 30-74 mins Time Spent (min) 35
[2022-03-03] MEDS: SENNOSIDES 8.8 MG/5 ML UDC PO SCH (20:23)
[2022-03-03] MEDS: fentaNYL citrate 2,500 MCG/250 ML BAG IV SCH (20:23)
[2022-03-04 03:31] LABS: iSTAT Allen Test Pass; iSTAT Art Bld Gas pCO2 Correct 51 mmHg (35-46); iSTAT Art Bld Gas pH Corrected 7.324 (7.35-7.45); iSTAT Arterial Blood Gas HCO3 27 meg/L (19-24); iSTAT Arterial Blood Gas pCO2 51 mmHg (35-46); iSTAT Arterial Blood Gas pH 7.33 (7.35-7.45); iSTAT Arterial Blood Gas pO2 88 mmHg (80-95); iSTAT Arterial Blood Gas pO2 C 90; iSTAT Carbon Dioxide 28 mmol/L (24-31); iSTAT FiO2 40 %; iSTAT Hematocrit 18 % (37-47); iSTAT Hemoglobin 6.1 g/dl (12.0-16.0); iSTAT Potassium 3.5 mmol/L (3.3-5.0); iSTAT Site L Radial; iSTAT Sodium 140 mmol/L (135-144)
[2022-03-04] MEDS: TUBE FEEDING WATER FLUSH OG SCH ×6 (04:17→23:35)
[2022-03-04] MEDS: PIPERACILLIN/TAZOBACTAM 3.375 GM in DEXTROSE 5% 100 ML IV SCH ×3 (04:17→21:53)
[2022-03-04] MEDS: NOREPINEPHRINE/D5W 4 MG/250 ML PLCT IV SCH ×2 (05:06→21:03)
[2022-03-04] MEDS: VALPROATE SOD 250 MG in DEXTROSE 5% 50 ML IV SCH ×4 (05:21→23:35)
[2022-03-04] MEDS: INSULIN ASPART PER UNIT SC SCH ×4 (05:31→23:36)
[2022-03-04 06:10] LABS: Basophils # (auto) 0.02 K/uL (0-0.2); Basophils % (auto) 0.2 %; Eosinophils # (auto) 0.35 K/uL (0-0.5); Eosinophils % (auto) 3.3 %; Hematocrit (blood only) 22.2 % (37-47); Hemoglobin 7.2 g/dL (12.0-16.0); Immature Granulocytes # (auto) 0.22 K/uL (0.00-0.02); Immature Granulocytes % (auto) 2.1 %; Lymphocytes # (auto) 1.47 K/uL (1.2-3.4); Lymphocytes % (auto) 14.1 %; Mean Corpuscular Hgb Conc 32.4 g/dL (32-36); Mean Corpuscular Volume 86.4 fL (80-100); Mean Platelet Volume 9.5 fL (7.4-10.4); Monocytes # (auto) 0.81 K/uL (0.11-0.59); Monocytes % (auto) 7.7 %; Neutrophils # (auto) 7.59 K/uL (1.4-6.5); Neutrophils % (auto) 72.6 %; Nucleated RBC # (auto) 0.05 K/uL (0-0); Nucleated RBC % (auto) 0.5 %; Platelet Count 123 K/uL (130-400); RDW Coefficient of Variation 14.9 % (11.5-14.5); RDW Standard Deviation 46.4 fL (36.4-46.3); Red Blood Count 2.57 M/uL (4.2-5.4); White Blood Count 10.46 K/uL (4.8-10.8)
[2022-03-04 06:24] LABS: Basophilic Stippling 1+
[2022-03-04 06:46] LABS: BUN Creatinine Ratio 37.7 (10-20); Calcium 9.4 mg/dl (8.5-10.1); Creatinine Clr Calc Pharmacy 34.1 ml/min; Est GFR (African American) 36.3 ml/min; Est GFR (Non-African American) 31.3 ml/min; Phosphorus 3.2 mg/dl (2.5-4.9); Potassium 3.4 mmol/L (3.5-5.1)
[2022-03-04] MEDS ORDERED: POTASSIUM CHLORIDE 20 MEQ/15 ML UDC PO STA (07:06)
[2022-03-04] MEDS: BUDESONIDE 0.25 MG/2 ML VIAL (PULMICORT) NEB SCH ×2 (07:29→20:27)
[2022-03-04] MEDS: FORMOTEROL 20 MCG/2 ML VIAL NEB SCH ×2 (07:29→20:27)
[2022-03-04] MEDS ORDERED: POTASSIUM CHLORIDE 10 MEQ TABCR PO STA (07:36)
[2022-03-04] MEDS ORDERED: POTASSIUM CHLORIDE CRTAB 20 MEQ TABCR PO STA (07:36)
[2022-03-04] MEDS ORDERED: POTASSIUM CHLORIDE 20 MEQ/15 ML UDC PO ONE (07:45)
[2022-03-04] MEDS: PANTOprazole 40 MG in SYRINGE 0 ML IV SCH ×2 (08:13→22:00)
[2022-03-04] MEDS: hydrALAZINE TAB 50 MG TAB PO SCH ×3 (08:13→21:03)
--- NOTE | 2022-03-04 09:17 | Critical Care Progress Note ---
Date of Service March 04, 2022 Assessment & Plan (1) Admitted to intensive care unit: Plan: Reason Critically Ill: 66-year-old female with recurrent acute on chronic hypoxemic respiratory failure with hypercapnia requiring multiple intubations and close monitoring. Now s/p tracheostomy. NEURO - * CAM ICU: POSITIVE * Altered mental status: Secondary to acute hypercapnic respiratory failure * LP from earlier admission negative for infectious etiology * MRI brain 02/20 with empty sella, b/l mastoiditis * No acute intracranial process * Continue IV Depakote per neuro recs --> switch to p.o. when tolerated; valproic acid levels appropriate (03/03) * No pressors, sedation, analgesics >24 hours CARDIAC/VASCULAR - * Hypertension, labile: * D/c'd clonidine patch (03/02). D/c'd levophed (03/03) * Metoprolol 5mg IV q4h prn systolic >180. * Continue hydralazine. If BP elevates, consider addition of amlodipine. Avoid ERICKA/ARB due to GERALD. Avoid beta blockers due to bradycardic events. * Patient pre-admission was only on coreg for HTN * +9.5L fluid balance since admission. Consider diuresis if kidneys allow. Cr mildly improving. * Monitor on telemetry * Bilateral venous doppler neg for DVT RESPIRATORY - * Acute on chronic hypoxemic respiratory failure with hypercapnia: Poor compliance. * Chest XR (02/28) showed mediastinal shift to right with right lower lobe collapse. Subsequent bronchoscopy showed secretions but not enough to cause collapse. Most likely was due to aspiration pneumonia. * Chest x-ray (03/03) persistent RLL alveolar opacity. * Continue budesonide and Performist BID for history of COPD. * Tracheostomy performed with success (03/03). Continue with mechanical ventilation. GI/NUTRITION - * Tube feeds * ppx: protonix RENAL/LYTES - * GERALD likely from poor p.o. intake. * Hold IVF for now 2/2 fluid overload. * Replete lytes per protocol. Strict I&Os - * Degroot in place - Strict I&Os. ENDO - * DMII * BSGs per unit protocol. ISS --> gtt per unit policy. HEME - * Hgb 7.2, decreasing. Monitor closely. * Possible GI bleed. Protonix increased to 40mg BID. Repeat H&H. FOBT ordered. CT abd/pelv w/o con ordered to evaluate for retroperitoneal bled. * Thrombocytopenia improving. HIT antibodies neg. ID - * Repeat blood cultures no growth.Repeat sputum/lavage cx neg. Lumbar puncture from earlier in the hospitalization negative. Prior sputum and blood cultures negative.Pro-[place] negative. * Repeat nasal MRSA swab neg. Continue zosyn for suspected pneumonia. LINES/IV ACCESS - * PIVs, USG * LEFT Subclavian CVL --> remove today since no longer on pressors * Degroot DVT PROPHYLAXIS - * Heparin due to anemia * SCDs Thank you for allowing us to participate in the care of this patient.Please refer to my attending physician's documentation for any further recommendations. (2) Acute on chronic respiratory failure with hypoxia and hypercapnia: (3) Acute metabolic encephalopathy: Admission and Anticipated Discharge Date Admission Date: February 20, 2022 Supervising Physician Co-Signing Physician Notes Dr. Kemp was the resident-physician during care of patient. I separately evaluated patient for jane portions of the history and the exam. I was present during the critical portion of medical decision making, and I discussed the case with the resident. I generally agree with the findings and plan except for any additions/exceptions noted. Patient seen and examined at bedside. No acute distress, no adverse events overnight She is awake alert, answering simple questions, following simple commands Has been off vasopressors since yesterday. Did not have any other episodes of bradycardia since yesterday in the morning. Constitutional: No acute distress HEENT: EOMI, PERRLA, positive trach Respiratory system: Decreased air entry bilaterally, no wheeze, no rhonchi, positive crackles bilaterally CVS: S1-S2 positive, no murmurs or gallops Abdomen: Soft, nontender, nondistended, positive bowel sounds x4, obese Extremities: +2 pulses bilaterally radialis/ dorsalis pedis, no cyanosis, +1 pitting edema bilateral lower extremity Neuro: Awake alert oriented to self, answering simple questions, following commands Psych: Normal mood and affect G/U: Positive Degroot --Prophylaxis VTE: Heparin on hold, IPC's GI: Pantoprazole Lines: Left subclavian, right radial, positive Degroot, positive trach 03/02/2022 Diet: Tube feeds Plan: In/out: +989, urine output 751 Hypokalemia being replaced Patient hemoglobin has been trending down. I will order neck stool occult blood to make sure she is not bleeding from GI source. CT abdomen and pelvis was done today we did not show any signs of retroperitoneal bleed. Platelets have been stabilized. Serotonin release assay still pending for HIT work-up. I will order haptoglobin, factor VIII, PT/INR and fibrinogen level Repeat H&H later today if it is trending down we will transfuse 2 units, change Protonix to 40 mg twice daily S/p tracheostomy today. Chest x-ray still shows right lower lobe opacity with mediastinal shift to the right Follow-up HIT antibodies. Continue to hold heparin. Continue with SCDs. Try to wean off Levophed. DC fentanyl drip and give as needed fentanyl on as- needed basis Continue with Zosyn for total of 7 days for aspiration pneumonia Awaiting LTAC placement I have personally spent 37 minutes of critical care time in the direct management of this patient. This is a life/limb threatening event. This includes time spent evaluating patient, direct bedside care, chart review, placing orders, interpretation of diagnostic studies, discussion with consultants, patient, and/or family members regarding treatment decisions, as well as other required patient management activities. This time is exclusive of all separately billable procedures, and teaching time and separate from and in addition to any other critical care service time. Subjective S/p trach yesterday morning. Patient seen and examined this morning. Awake and alert, responds to commands appropriately. Does not appear to be in respiratory distress. Denies chest pain, headache, abdominal pain. Review of Systems Review of Systems: All systems reviewed & are unremarkable except as noted in HPI & below Physical Exam Physical Exam: Constitutional: s/p tracheostomy on ventilator, in no acute distress. Vitals as above. HEENT: conjunctivae normal, anicteric sclerae, +trach tube Neck: trachea midline, no thyromegaly Lungs: Diminished breath sounds bilaterally with mild crackles.No wheezes. or rhonchi. Cardiac: RRR, no murmur, 1+ pitting edema lower extremities, 2+ radialis/dorsalis pedal pulses Abdomen: normal bowel sounds, soft, nontender, no hepatosplenomegaly MSK: No cyanosis or clubbing. Skin: No rashes, dry. Neurologic: PERRL, accommodation nl Results & Data Results & Data ([facility]) Vital Signs (Past 12 Hours) Vital Signs Temp Pulse Resp BP Pulse Ox 03/04/22 08:01 77 24 94 03/04/22 06:17 36.9 C 82 24 135/58 L 93 03/04/22 05:00 37.1 C 70 24 124/51 L 95 03/04/22 04:00 37.1 C 69 24 117/63 96 03/04/22 03:24 74 24 97 03/04/22 03:00 37.2 C 83 22 141/62 H 96 03/04/22 02:00 37.2 C 76 22 114/55 L 97 03/04/22 01:00 37.3 C 85 22 113/55 L 96 03/04/22 00:00 37.4 C 91 H 22 105/82 96 03/03/22 23:40 85 22 96 03/03/22 23:24 85 03/03/22 23:00 37.4 C 92 H 22 114/46 L 96 03/03/22 22:00 37.3 C 85 22 126/52 L 96 Laboratory Results 03/04/22 03/04/22 03/04/22 Range/Units 07:46 05:41 05:41 WBC 10.46 (4.8-10.8) K/uL RBC 2.57 L (4.2-5.4) M/uL Hgb 7.2 L (12.0-16.0) g/dL POC Hgb (12.0-16.0) g/dl Hct 22.2 L (37-47) % POC Hct (37-47) % MCV 86.4 (80-100) fL MCH 28.0 (25-34) pg MCHC 32.4 (32-36) g/dL RDW Std Deviation 46.4 H (36.4-46.3) fL RDW Coeff of Ana 14.9 H (11.5-14.5) % Plt Count 123 L (130-400) K/uL MPV 9.5 (7.4-10.4) fL Immature Gran % (Auto) 2.1 % Neut % (Auto) 72.6 % Lymph % (Auto) 14.1 % [place] % (Auto) 7.7 % Eos % (Auto) 3.3 % Baso % (Auto) 0.2 % Neut # (Auto) 7.59 H (1.4-6.5) K/uL Lymph # (Auto) 1.47 (1.2-3.4) K/uL [place] # (Auto) 0.81 H (0.11-0.59) K/uL Eos # (Auto) 0.35 (0-0.5) K/uL Baso # (Auto) 0.02 (0-0.2) K/uL Immature Gran # (Auto) 0.22 H (0.00-0.02) K/uL Absolute Nucleated RBC 0.05 H (0-0) K/uL Nucleated RBC % (auto) 0.5 % Basophilic Stippling 1+ Sample Site POC pH (7.35-7.45) POC pCO2 (35-46) mmHg POC pO2 (80-95) mmHg POC HCO3 (19-24) rosalind/L POC Total CO2 (24-31) mmol/L POC Base Excess (-9-1.8) rosalind/L ABG pH (Temp Correct) (7.35-7.45) ABG pCO2 (Temp Corrct (35-46) mmHg POC ABG pO2 at Pt Temp POC ABG O2 Sat (90-95) % Berto Test O2 Delivery Device POC O2 Rate POC FiO2 % Tidal Volume PEEP POC Sodium (135-144) mmol/L Sodium 141 (136-145) mmol/L POC Potassium (3.3-5.0) mmol/L Potassium 3.4 L (3.5-5.1) mmol/L Chloride 109 H (98-107) mmol/L Carbon Dioxide 27 (21-32) mmol/L Anion Gap 5 (3-11) BUN 63 H (6-23) mg/dl Creatinine 1.67 H (0.6-1.2) mg/dl Est Cr Clr Drug Dosing 34.1 ml/min Est GFR ( Amer) 36.3 ml/min Est GFR (Non-Af Amer) 31.3 ml/min BUN/Creatinine Ratio 37.7 H (10-20) Glucose 104 H (70-99(Fasting)) mg/dl POC Glucose (70-99) mg/dl Calcium 9.4 (8.5-10.1) mg/dl Phosphorus 3.2 (2.5-4.9) mg/dl Magnesium 2.0 (1.7-2.4) mg/dl Serotonin Release Assay Valproic Acid (50-100) mcg/ml Heparin Depend Plt Ab Blood Type B Positive Antibody Screen NEGATIVE 03/04/22 03/04/22 03/03/22 Range/Units 05:29 03:16 23:49 WBC (4.8-10.8) K/uL RBC (4.2-5.4) M/uL Hgb (12.0-16.0) g/dL POC Hgb 6.1 L* (12.0-16.0) g/dl Hct (37-47) % POC Hct 18 L* (37-47) % MCV (80-100) fL MCH (25-34) pg MCHC (32-36) g/dL RDW Std Deviation (36.4-46.3) fL RDW Coeff of Ana (11.5-14.5) % Plt Count (130-400) K/uL MPV (7.4-10.4) fL Immature Gran % (Auto) % Neut % (Auto) % Lymph % (Auto) % [place] % (Auto) % Eos % (Auto) % Baso % (Auto) % Neut # (Auto) (1.4-6.5) K/uL Lymph # (Auto) (1.2-3.4) K/uL [place] # (Auto) (0.11-0.59) K/uL Eos # (Auto) (0-0.5) K/uL Baso # (Auto) (0-0.2) K/uL Immature Gran # (Auto) (0.00-0.02) K/uL Absolute Nucleated RBC (0-0) K/uL Nucleated RBC % (auto) % Basophilic Stippling Sample Site L Radial POC pH 7.33 L (7.35-7.45) POC pCO2 51 H (35-46) mmHg POC pO2 88 (80-95) mmHg POC HCO3 27 H (19-24) rosalind/L POC Total CO2 28 (24-31) mmol/L POC Base Excess 1.0 (-9-1.8) rosalind/L ABG pH (Temp Correct) 7.324 L (7.35-7.45) ABG pCO2 (Temp Corrct 51 H (35-46) mmHg POC ABG pO2 at Pt Temp 90 POC ABG O2 Sat 96.0 H (90-95) % Berto Test Pass O2 Delivery Device Ventilator POC O2 Rate 22 POC FiO2 40 % Tidal Volume 400 PEEP 6 POC Sodium 140 (135-144) mmol/L Sodium (136-145) mmol/L POC Potassium 3.5 (3.3-5.0) mmol/L Potassium (3.5-5.1) mmol/L Chloride (98-107) mmol/L Carbon Dioxide (21-32) mmol/L Anion Gap (3-11) BUN (6-23) mg/dl Creatinine (0.6-1.2) mg/dl Est Cr Clr Drug Dosing ml/min Est GFR ( Amer) ml/min Est GFR (Non-Af Amer) ml/min BUN/Creatinine Ratio (10-20) Glucose (70-99(Fasting)) mg/dl POC Glucose 107 H 108 H (70-99) mg/dl Calcium (8.5-10.1) mg/dl Phosphorus (2.5-4.9) mg/dl Magnesium (1.7-2.4) mg/dl Serotonin Release Assay Valproic Acid (50-100) mcg/ml Heparin Depend Plt Ab Blood Type Antibody Screen 03/03/22 03/03/22 03/03/22 Range/Units 15:58 12:44 10:30 WBC (4.8-10.8) K/uL RBC (4.2-5.4) M/uL Hgb (12.0-16.0) g/dL POC Hgb (12.0-16.0) g/dl Hct (37-47) % POC Hct (37-47) % MCV (80-100) fL MCH (25-34) pg MCHC (32-36) g/dL RDW Std Deviation (36.4-46.3) fL RDW Coeff of Ana (11.5-14.5) % Plt Count (130-400) K/uL MPV (7.4-10.4) fL Immature Gran % (Auto) % Neut % (Auto) % Lymph % (Auto) % [place] % (Auto) % Eos % (Auto) % Baso % (Auto) % Neut # (Auto) (1.4-6.5) K/uL Lymph # (Auto) (1.2-3.4) K/uL [place] # (Auto) (0.11-0.59) K/uL Eos # (Auto) (0-0.5) K/uL Baso # (Auto) (0-0.2) K/uL Immature Gran # (Auto) (0.00-0.02) K/uL Absolute Nucleated RBC (0-0) K/uL Nucleated RBC % (auto) % Basophilic Stippling Sample Site POC pH (7.35-7.45) POC pCO2 (35-46) mmHg POC pO2 (80-95) mmHg POC HCO3 (19-24) rosalind/L POC Total CO2 (24-31) mmol/L POC Base Excess (-9-1.8) rosalind/L ABG pH (Temp Correct) (7.35-7.45) ABG pCO2 (Temp Corrct (35-46) mmHg POC ABG pO2 at Pt Temp POC ABG O2 Sat (90-95) % Berto Test O2 Delivery Device POC O2 Rate POC FiO2 % Tidal Volume PEEP POC Sodium (135-144) mmol/L Sodium (136-145) mmol/L POC Potassium (3.3-5.0) mmol/L Potassium (3.5-5.1) mmol/L Chloride (98-107) mmol/L Carbon Dioxide (21-32) mmol/L Anion Gap (3-11) BUN (6-23) mg/dl Creatinine (0.6-1.2) mg/dl Est Cr Clr Drug Dosing ml/min Est GFR ( Amer) ml/min Est GFR (Non-Af Amer) ml/min BUN/Creatinine Ratio (10-20) Glucose (70-99(Fasting)) mg/dl POC Glucose 93 89 (70-99) mg/dl Calcium (8.5-10.1) mg/dl Phosphorus (2.5-4.9) mg/dl Magnesium (1.7-2.4) mg/dl Serotonin Release Assay Valproic Acid 43 L (50-100) mcg/ml Heparin Depend Plt Ab Blood Type Antibody Screen 03/02/22 Range/Units 14:49 WBC (4.8-10.8) K/uL RBC (4.2-5.4) M/uL Hgb (12.0-16.0) g/dL POC Hgb (12.0-16.0) g/dl Hct (37-47) % POC Hct (37-47) % MCV (80-100) fL MCH (25-34) pg MCHC (32-36) g/dL RDW Std Deviation (36.4-46.3) fL RDW Coeff of Ana (11.5-14.5) % Plt Count (130-400) K/uL MPV (7.4-10.4) fL Immature Gran % (Auto) % Neut % (Auto) % Lymph % (Auto) % [place] % (Auto) % Eos % (Auto) % Baso % (Auto) % Neut # (Auto) (1.4-6.5) K/uL Lymph # (Auto) (1.2-3.4) K/uL [place] # (Auto) (0.11-0.59) K/uL Eos # (Auto) (0-0.5) K/uL Baso # (Auto) (0-0.2) K/uL Immature Gran # (Auto) (0.00-0.02) K/uL Absolute Nucleated RBC (0-0) K/uL Nucleated RBC % (auto) % Basophilic Stippling Sample Site POC pH (7.35-7.45) POC pCO2 (35-46) mmHg POC pO2 (80-95) mmHg POC HCO3 (19-24) rosalind/L POC Total CO2 (24-31) mmol/L POC Base Excess (-9-1.8) rosalind/L ABG pH (Temp Correct) (7.35-7.45) ABG pCO2 (Temp Corrct (35-46) mmHg POC ABG pO2 at Pt Temp POC ABG O2 Sat (90-95) % Berto Test O2 Delivery Device POC O2 Rate POC FiO2 % Tidal Volume PEEP POC Sodium (135-144) mmol/L Sodium (136-145) mmol/L POC Potassium (3.3-5.0) mmol/L Potassium (3.5-5.1) mmol/L Chloride (98-107) mmol/L Carbon Dioxide (21-32) mmol/L Anion Gap (3-11) BUN (6-23) mg/dl Creatinine (0.6-1.2) mg/dl Est Cr Clr Drug Dosing ml/min Est GFR ( Amer) ml/min Est GFR (Non-Af Amer) ml/min BUN/Creatinine Ratio (10-20) Glucose (70-99(Fasting)) mg/dl POC Glucose (70-99) mg/dl Calcium (8.5-10.1) mg/dl Phosphorus (2.5-4.9) mg/dl Magnesium (1.7-2.4) mg/dl Serotonin Release Assay TNP Valproic Acid (50-100) mcg/ml Heparin Depend Plt Ab Blood Type Antibody Screen Resident Activity Tracking Resident Involvement: Resident Care Provided Care Provided: Adult Hospital Medicine
--- NOTE | 2022-03-04 09:36 | Hospitalist Progress Note ---
Date of Service March 04, 2022 Assessment & Plan (1) Aspiration pneumonia: Plan: 03/02/22 Acute respiratory failure with hypercapnia and acidemia, failed Bipap re intubated and ventilated tracheostomy placed CT chest 02/27/22 with secretions/debris in RLL airway IV zosyn. s/p bronch by Dr Latham 02/28/22 - culture negative. blood cultures 02/26/22 negative. (2) Acute on chronic respiratory failure with hypoxia and hypercapnia: Plan: Recurrent, severe acute respiratory acidosis Re intubated 03/02/22 Developed aspiration pneumonia with previous decline 02/27/22, now supported by trache and ventialtion (3) Acute metabolic encephalopathy: Plan: 02/26/22 - developed severely altered mental status. 2nd to severe respiratory acidosis & hypothermia at that time. MRI brain from earlier in the stay without acute or chronic CVA, ICH, etc. Despite Rx of respiratory acidosis (with intubation/mech ventilation) her mental status remains in question does follow commands Depakote level not toxic. Ammonia level wnl. TSH wnl. (4) Sepsis: Plan: Meningitis ruled out early in stay s/p normal LP. Had been on cefepime + doxycycline developed aspiration pneumonia transitioned to zosyn. cx's negative. (5) Acute kidney injury: Plan: Likely ATN from prerenal causes. Obstruction ruled out with negative CT a/p. (6) Seizure-like activity: Plan: Reported and witnessed by EMS just prior to admission. EEG without seizure activity. MRI brain negative. Seen by neurology earlier this stay - depakote advised. depakote repeat level sl low 03/03/22, no dose adjustment recommended by icu (7) Elevated troponin: Plan: Peak HS trop was 187 earlier in stay -- likely 2nd to myocardial demand ischemia in setting of respiratory failure. (8) Chronic kidney disease, stage 3a: (9) Hypertension: (10) COPD (chronic obstructive pulmonary disease): (11) Mastoiditis: Plan: b/l - seen on MRI brain. clinically there is no evidence of such on exam =- no inflammation/swelling/tend erness over either mastoid; ears symmetric; etc. (12) Pulmonary nodules: Plan: Right lower lobe nodule seen on CT chest earlier in the stay. Follow-up CT chest 3 months. (13) DVT prophylaxis: Plan: heparin 5000 TID (14) Hypothermia: Plan: Resolved. (15) Empty sella: Plan: Seen on MRI brain earlier this admission. In light of recurrent sepsis-like picture, resp failure, low BP, etc -- TSH, FT4, and cortisol - all wnl. (16) Anemia: Plan: continues to be low, CT Abd/pelvis without retroperitoneal bleed. holding anticoagulants Admission and Anticipated Discharge Date Admission Date: February 20, 2022 Subjective S/p trach 03/03/22. Patient Awakens to voice and alert but falls back to sleep easily remains off sedation at this time, responds to commands appropriately. Does not appear to be in respiratory distress. Denies chest pain, headache, abdominal pain. has some worsening anemia, no obvious signs of blood loss, Review of Systems Review of Systems: All systems reviewed & are unremarkable except as noted in Subjective Physical Exam Physical Exam: The patient appeared stable and supported Vital signs as documented. trache in place and ventilating well Lungs are coarse and supported Cardiac exam, Rhythm is regular.. No murmurs, rubs or gallops. Abdominal exam reveals normal bowel sounds, soft Extremities are trace edematous and both pedal pulses are normal. Results & Data Results & Data ([facility]) Vital Signs (Past 12 Hours) Vital Signs Temp Pulse Resp BP Pulse Ox 03/04/22 08:01 77 24 94 03/04/22 06:17 98.4 F 82 24 135/58 L 93 03/04/22 05:00 98.8 F 70 24 124/51 L 95 03/04/22 04:00 98.8 F 69 24 117/63 96 03/04/22 03:24 74 24 97 03/04/22 03:00 99.0 F 83 22 141/62 H 96 03/04/22 02:00 99.0 F 76 22 114/55 L 97 03/04/22 01:00 99.1 F 85 22 113/55 L 96 03/04/22 00:00 99.3 F 91 H 22 105/82 96 03/03/22 23:40 85 22 96 03/03/22 23:24 85 03/03/22 23:00 99.3 F 92 H 22 114/46 L 96 03/03/22 22:00 99.1 F 85 22 126/52 L 96 PG Care Time/CCT Total # of Minutes Spent Total Time Spent with Patient: Total time spent is greater than 50% in coordination of care (as documented) at patient's floor/unit and/or counseling patient: Coding Level of Care Code 63455 Subseq Hosp Care Lvl 2 Diagnoses Aspiration pneumonia J69.0 Acute on chronic respiratory failure with hypoxia and hypercapnia J96.21; J96.22 Acute metabolic encephalopathy G93.41 Sepsis A41.9 Acute kidney injury N17.9 Seizure-like activity R56.9 Elevated troponin R77.8 Chronic kidney disease, stage 3a N18.31 Hypertension I10 COPD (chronic obstructive pulmonary disease) J44.9 COPD type: unspecified COPD Mastoiditis H70.90 Pulmonary nodules R91.8 DVT prophylaxis Z29.9 Hypothermia T68.XXXA Empty sella E23.6 Anemia D64.9 (1) COPD (chronic obstructive pulmonary disease) COPD type: unspecified COPD Qualified Code(s): J44.9 - Chronic obstructive pulmonary disease, unspecified
--- NOTE | 2022-03-04 10:21 | CT Scan Report ---
ABDOMEN AND PELVIS CT WITHOUT CONTRAST CT DOSE: 1247.85 mGy.cm HISTORY: Follow up study in a patient with retroperitoneal hematoma r/o retroperitoneal bleed TECHNIQUE: Multiaxial CT images of the abdomen and pelvis were performed without contrast. A dose lo wering technique was utilized adhering to the principles of ALARA. COMPARISON STUDY: CT abdomen and pelvis 02/27/2022 FINDINGS: Coronary artery calcifications. Decreased attenuation of the cardiac blood pool suggestive of anemia. Small right pleural effusion. Right basilar opacities include dense airspace consolidation of the ba juan alberto right lower lobe. Mild subsegmental left basilar atelectasis. Limited study secondary to position ing, respiratory motion and lack of contrast. No pneumatosis or pneumoperitoneum. The unenhanced spleen, pancreas and adrenal glands are unremarkable. Cholecystectomy. Hepatomegaly. M ild cortical thinning of the kidneys. No urolith or hydronephrosis. Decompressed urinary bladder with wall thickening. A Degroot catheter is in place. Air within the bladder lumen is likely secondary to i nstrumentation. Suggested fibroid uterus. The endometrium appears mildly thickened for postmenopausal patient measuring up to approximately 10 mm at the fundus. No adnexal mass lesions. Atherosclerosis of the aorta. There is no lymphadenopathy. Small hiatal hernia. Distal tip of feeding tube projects over the distal stomach. No small bowel obst ruction. A rectal catheter is in place. Moderate fecal retention with scattered air-fluid levels thro ughout the large bowel. The previously described thickening with luminal narrowing of the sigmoid col on is no longer appreciated. Normal appendix. No retroperitoneal hematoma identified. Mild generalize d body wall edema with trace perihepatic ascites. Degenerative changes of the spine, pelvis and hips. IMPRESSION: 1. Decreased attenuation of the cardiac blood pool suggestive of anemia. No retroperitoneal hematoma identified. 2. No bowel obstruction or bowel wall thickening. 3. Small right pleural effusion with right basilar consolidation suggestive of pneumonia. Correlate c linically to exclude aspiration pneumonitis. 4. Feeding tube within the distal stomach. 5. Mild thickening of the postmenopausal endometrium. 6. Additional findings as above. ACT 112: Negative or not required by law. The above report was generated using voice recognition software. It may contain grammatical, syntax o r spelling errors. Electronically signed by: Bal Wells M.D. 03/04/2022 10:19 AM
[2022-03-04 12:21] LABS: Hematocrit (blood only) 23.7 % (37-47); Hemoglobin 7.7 g/dL (12.0-16.0)
--- NOTE | 2022-03-04 13:13 | Billing Data ---
Date of Service March 04, 2022 Coding Level of Care Code Established Pt Critical Care 1st 30-74 mins Patient Type Established Time Spent (min) 37
[2022-03-04 14:16] LABS: Fibrinogen 800 mg/dl (184-400); Partial Thromboplastin Ratio 0.8; Partial Thromboplastin Time 22.2 Seconds (21.0-31.0); Prothrombin Time 10.6 Seconds (9.0-12.0)
[2022-03-04] MEDS: SENNOSIDES 8.8 MG/5 ML UDC PO SCH (21:03)
[2022-03-04 21:45] LABS: Hematocrit (blood only) 24.6 % (37-47); Hemoglobin 7.9 g/dL (12.0-16.0)
[2022-03-04] MEDS: ACETAMINOPHEN 1,000 MG/100 ML VIAL IV PRN (23:56)
[2022-03-05] MEDS: TUBE FEEDING WATER FLUSH OG SCH ×5 (03:15→20:01)
[2022-03-05] MEDS: PEPTAMEN 1.5 CAL 1,000 ML BAG NG SCH (03:16)
[2022-03-05] MEDS: PIPERACILLIN/TAZOBACTAM 3.375 GM in DEXTROSE 5% 100 ML IV SCH ×3 (03:17→20:02)
[2022-03-05] MEDS: VALPROATE SOD 250 MG in DEXTROSE 5% 50 ML IV SCH ×3 (05:08→16:50)
[2022-03-05] MEDS: INSULIN ASPART PER UNIT SC SCH ×3 (05:13→16:50)
[2022-03-05 05:41] LABS: Hematocrit (blood only) 23.6 % (37-47); Hemoglobin 7.6 g/dL (12.0-16.0); Mean Corpuscular Hemoglobin 27.9 pg (25-34); Mean Corpuscular Hgb Conc 32.2 g/dL (32-36); Mean Corpuscular Volume 86.8 fL (80-100); Mean Platelet Volume 9.4 fL (7.4-10.4); Nucleated RBC # (auto) 0.05 K/uL (0-0); Nucleated RBC % (auto) 0.5 %; Platelet Count 141 K/uL (130-400); RDW Standard Deviation 47.2 fL (36.4-46.3); Red Blood Count 2.72 M/uL (4.2-5.4); White Blood Count 10.41 K/uL (4.8-10.8)
[2022-03-05 05:59] LABS: BUN Creatinine Ratio 36.2 (10-20); Calcium 10.1 mg/dl (8.5-10.1); Creatinine Clr Calc Pharmacy 39.1 ml/min; Est GFR (African American) 40.7 ml/min; Est GFR (Non-African American) 35.1 ml/min; Phosphorus 2.7 mg/dl (2.5-4.9)
[2022-03-05 06:07] LABS: Basophilic Stippling 1+; Basophils # (auto) 0.04 K/uL (0-0.2); Basophils % (auto) 0.4 %; Eosinophils # (auto) 0.32 K/uL (0-0.5); Eosinophils % (auto) 3.1 %; Immature Granulocytes # (auto) 0.81 K/uL (0.00-0.02); Immature Granulocytes % (auto) 7.8 %; Lymphocytes % (auto) 18.3 %; Monocytes # (auto) 0.84 K/uL (0.11-0.59); Monocytes % (auto) 8.1 %; Neutrophils % (auto) 62.3 %
[2022-03-05] MEDS: fentaNYL citrate 2,500 MCG/250 ML BAG IV SCH (06:55)
[2022-03-05] MEDS: NOREPINEPHRINE/D5W 4 MG/250 ML PLCT IV SCH (06:56)
--- NOTE | 2022-03-05 07:29 | XRay Report ---
XR chest 1V portable HISTORY: 66 years-old Female Resp failure acute respiratory failure COMPARISON: Chest radiograph 03/03/2022 TECHNIQUE: Multiple AP view of the chest FINDINGS: Tracheostomy cannula overlies the midline. Enteric tube courses below the diaphragm with distal tip o utside the [id number]. Exam is limited secondary to patient positioning. Status post removal of le ft subclavian central venous catheter. No pneumothorax. Pulmonary vascular congestion with interstiti al coarsening. Trace left and small moderate right pleural effusions with persistent right basilar op acities. Surgical clips project over the abdominal right upper quadrant. Degenerative changes of the shoulders and spine. IMPRESSION: 1. Cardiomegaly with with mild pulmonary edema. 2. Trace left with small to moderate right pleural effusions redemonstrated along with right basilar consolidation. ACT 112: Negative or not required by law. The above report was generated using voice recognition software. It may contain grammatical, syntax o r spelling errors. Electronically signed by: Bal Wells M.D. 03/05/2022 7:28 AM
[2022-03-05] MEDS: BUDESONIDE 0.25 MG/2 ML VIAL (PULMICORT) NEB SCH ×2 (08:05→20:41)
[2022-03-05] MEDS: FORMOTEROL 20 MCG/2 ML VIAL NEB SCH ×2 (08:05→20:42)
[2022-03-05] MEDS: hydrALAZINE TAB 50 MG TAB PO SCH ×3 (08:45→20:04)
[2022-03-05] MEDS: PANTOprazole 40 MG in SYRINGE 0 ML IV SCH (08:47)
--- NOTE | 2022-03-05 11:00 | Critical Care Progress Note ---
Date of Service March 05, 2022 Assessment & Plan (1) Admitted to intensive care unit: Plan: Reason Critically Ill: 66-year-old female with recurrent acute on chronic hyp oxemic respiratory failure with hypercapnia requiring multiple intubations and close monitoring. Now s/p tracheostomy. NEURO - * CAM ICU: POSITIVE * Altered mental status: Secondary to acute hypercapnic respiratory failure * LP from earlier admission negative for infectious etiology * MRI brain 02/20 with empty sella, b/l mastoiditis * No acute intracranial process * Continue IV Depakote per neuro recs --> switch to p.o. when tolerated; valproic acid levels appropriate (03/03) * No pressors, sedation, analgesics >24 hours CARDIAC/VASCULAR - * Hypertension, labile: * D/c'd clonidine patch (03/02). D/c'd levophed (03/03) * Metoprolol 5mg IV q4h prn systolic >180. * Continue hydralazine. If BP elevates, consider addition of amlodipine. Avoid ERICKA/ARB due to GERALD. Avoid beta blockers due to bradycardic events. * Patient pre-admission was only on coreg for HTN * Monitor on telemetry * Bilateral venous doppler neg for DVT RESPIRATORY - * Acute on chronic hypoxemic respiratory failure with hypercapnia: Poor compliance. * Chest XR (02/28) showed mediastinal shift to right with right lower lobe collapse. Subsequent bronchoscopy showed secretions but not enough to cause collapse. Most likely was due to aspiration pneumonia. * Chest x-ray (03/03) persistent RLL alveolar opacity. * Continue budesonide and Performist BID for history of COPD. * Tracheostomy performed with success (03/03). Continue with mechanical ventilation. GI/NUTRITION - * Tube feeds * ppx: protonix RENAL/LYTES - * GERALD likely from poor p.o. intake. * Hold IVF for now 2/2 fluid overload. * Replete lytes per protocol. Strict I&Os - * Degroot in place - Strict I&Os. ENDO - * DMII * BSGs per unit protocol. ISS --> gtt per unit policy. HEME - * Monitor H&H * Possible GI bleed. Protonix increased to 40mg BID. Repeat H&H. FOBT ordered. CT abd/pelv w/o con ordered to evaluate for retroperitoneal bled. * Thrombocytopenia improving. HIT antibodies neg. DIC work-up negative ID - * Repeat blood cultures no growth.Repeat sputum/lavage cx neg. Lumbar puncture from earlier in the hospitalization negative. Prior sputum and blood cultures negative.Pro-[place] negative. * Repeat nasal MRSA swab neg. Continue zosyn for suspected pneumonia. --Prophylaxis VTE: Heparin on hold, IPC's GI: Pantoprazole Lines: Peripheral, positive Degroot, positive trach 03/02/2022 Diet: Tube feeds Plan: In/out: +1250, urine output 850 H&H is stable. Patient did have bowel movement today we will send for stool occult blood. 8 antibodies still pending We will try to put the patient on pressure support in the morning today and vent at night DIC work-up negative, continue to hold heparin for the time being Thrombocytopenia is improving Continue with Zosyn for total of 7 days for aspiration pneumonia Awaiting LTAC placement I have personally spent 35 minutes of critical care time in the direct management of this patient. This is a life/limb threatening event. This includes time spent evaluating patient, direct bedside care, chart review, pl acing orders, interpretation of diagnostic studies, discussion with consultants, patient, and/or family members regarding treatment decisions, as well as other required patient management activities. This time is exclusive of all separately billable procedures, and teaching time and separate from and in addition to any other critical care service time. (2) Acute on chronic respiratory failure with hypoxia and hypercapnia: (3) Acute metabolic encephalopathy: Admission and Anticipated Discharge Date Admission Date: February 20, 2022 Subjective Patient seen and examined at bedside. No acute distress, no episodes overnight H&H is stable Patient is denying any headache, no chest pain, no abdominal pain Answering simple questions appropriately and also following commands Has been afebrile Review of Systems Review of Systems: All systems reviewed & are unremarkable except as noted in Subjective Physical Exam Physical Exam: Constitutional: No acute distress HEENT: EOMI, PERRLA, positive trach Respiratory system: Decreased air entry bilaterally, no wheeze, no rhonchi, positive crackles bilaterally CVS: S1-S2 positive, no murmurs or gallops Abdomen: Soft, nontender, nondistended, positive bowel sounds x4, obese Extremities: +2 pulses bilaterally radialis/ dorsalis pedis, no cyanosis, +1 pitting edema bilateral lower extremity Neuro: Awake alert oriented to self, answering simple questions, following commands Psych: Normal mood and affect G/U: Positive Degroot Skin: no rashes, warm and dry Lymphatic: no cervical or axillary lymphadenopathy Results & Data Results & Data ([facility]) Vital Signs (Past 12 Hours) Vital Signs Temp Pulse Resp BP Pulse Ox 03/05/22 10:00 89 18 140/54 L 91 03/05/22 09:14 86 14 143/60 H 98 03/05/22 09:12 77 21 93 03/05/22 09:00 80 18 91 03/05/22 08:00 36.5 C 80 19 203/93 H 93 03/05/22 07:02 36.3 C L 81 18 190/66 H 90 03/05/22 07:01 36.3 C L 80 18 90 03/05/22 05:00 36.9 C 83 20 141/52 H 92 03/05/22 04:35 78 18 93 03/05/22 04:00 37.0 C 86 19 149/79 H 92 03/05/22 03:00 37.0 C 87 20 100/40 L 91 03/05/22 02:00 36.9 C 78 18 127/49 L 93 03/05/22 01:00 37.0 C 94 H 18 124/48 L 90 03/05/22 00:00 37.2 C 101 H 18 120/44 L 89 L 03/04/22 23:25 94 H 21 91 03/04/22 23:00 37.1 C 85 18 105/41 L 90 Laboratory Results 03/05/22 04:59 03/05/22 04:59 Coding Level of Care Code Critical Care 1st 30-74 mins Diagnoses Admitted to intensive care unit Z78.9 Acute on chronic respiratory failure with hypoxia and hypercapnia J96.21; J96.22 Acute metabolic encephalopathy G93.41 Time Spent (min) 35
[2022-03-05] MEDS: PRAVASTATIN SOD 40 MG TAB PO SCH (13:00)
--- NOTE | 2022-03-05 13:07 | Hospitalist Progress Note ---
Date of Service March 05, 2022 Assessment & Plan (1) Aspiration pneumonia: Plan: 03/02/22 Acute respiratory failure with hypercapnia and acidemia, failed Bipap re intubated and ventilated tracheostomy placed CT chest 02/27/22 with secretions/debris in RLL airway IV zosyn. s/p bronch by Dr Latham 02/28/22 - culture negative. blood cultures 02/26/22 negative. (2) Acute on chronic respiratory failure with hypoxia and hypercapnia: Plan: Recurrent, severe acute respiratory acidosis Re intubated 03/02/22 Developed aspiration pneumonia with previous decline 02/27/22, now supported by trache and ventialtion (3) Acute metabolic encephalopathy: Plan: 02/26/22 - developed severely altered mental status. 2nd to severe respiratory acidosis & hypothermia at that time. MRI brain from earlier in the stay without acute or chronic CVA, ICH, etc. Despite Rx of respiratory acidosis (with intubation/mech ventilation) her mental status remains in question does follow commands Depakote level not toxic. Ammonia level wnl. TSH wnl. (4) Acute kidney injury: Plan: Likely ATN from prerenal causes. Obstruction ruled out with negative CT a/p. (5) Anemia: Plan: continues to be low, CT Abd/pelvis without retroperitoneal bleed. holding anticoagulants persistent anemia without worseing is likley multifactorial (6) Sepsis: Plan: Meningitis ruled out early in stay s/p normal LP. Had been on cefepime + doxycycline developed aspiration pneumonia transitioned to zosyn. cx's negative. (7) Seizure-like activity: Plan: Reported and witnessed by EMS just prior to admission. EEG without seizure activity. MRI brain negative. Seen by neurology earlier this stay - depakote advised. depakote repeat level sl low 03/03/22, no dose adjustment recommended by icu (8) Elevated troponin: Plan: Peak HS trop was 187 earlier in stay -- likely 2nd to myocardial demand ischemia in setting of respiratory failure. (9) Chronic kidney disease, stage 3a: (10) Hypertension: (11) COPD (chronic obstructive pulmonary disease): (12) Mastoiditis: Plan: b/l - seen on MRI brain. clinically there is no evidence of such on exam =- no inflammation/swelling/tenderness over either mastoid; ears symmetric; etc. (13) Pulmonary nodules: Plan: Right lower lobe nodule seen on CT chest earlier in the stay. Follow-up CT chest 3 months. (14) DVT prophylaxis: Plan: heparin 5000 TID (15) Hypothermia: Plan: Resolved. (16) Empty sella: Plan: Seen on MRI brain earlier this admission. In light of recurrent sepsis-like picture, resp failure, low BP, etc -- TSH, FT4, and cortisol - all wnl. Admission and Anticipated Discharge Date Admission Date: February 20, 2022 Subjective Patient seen and examined at bedside. No acute distress, no episodes overnight H&H is stable Patient is denying any headache, no chest pain, no abdominal pain Answering simple questions appropriately and also following commands Has been afebrile Review of Systems Review of Systems: Mild distress and fatigue pt awakens and nods to questions, she states she is not in pain she falls back asleep easily Physical Exam Physical Exam: The patient appeared stable and supported Vital signs as documented. trache in place and ventilating well Lungs are coarse and supported Cardiac exam, Rhythm is regular.. No murmurs, rubs or gallops. Abdominal exam reveals normal bowel sounds, soft Extremities are trace edematous and both pedal pulses are normal. Results & Data Results & Data ([facility]) Vital Signs (Past 12 Hours) Vital Signs Temp Pulse Resp BP Pulse Ox 03/05/22 11:20 85 18 92 03/05/22 10:00 89 18 140/54 L 91 03/05/22 09:14 86 14 143/60 H 98 03/05/22 09:12 77 21 93 03/05/22 09:00 80 18 91 03/05/22 08:00 97.7 F 80 19 203/93 H 93 03/05/22 07:02 97.3 F L 81 18 190/66 H 90 03/05/22 07:01 97.3 F L 80 18 90 03/05/22 05:00 98.4 F 83 20 141/52 H 92 03/05/22 04:35 78 18 93 03/05/22 04:00 98.6 F 86 19 149/79 H 92 03/05/22 03:00 98.6 F 87 20 100/40 L 91 03/05/22 02:00 98.4 F 78 18 127/49 L 93 PG Care Time/CCT Total # of Minutes Spent Total Time Spent with Patient: Total time spent is greater than 50% in coordination of care (as documented) at patient's floor/unit and/or counseling patient: Coding Level of Care Code 11285 Subseq Hosp Care Lvl 2 Diagnoses Aspiration pneumonia J69.0 Acute on chronic respiratory failure with hypoxia and hypercapnia J96.21; J96.22 Acute metabolic encephalopathy G93.41 Sepsis A41.9 Acute kidney injury N17.9 Seizure-like activity R56.9 Elevated troponin R77.8 Chronic kidney disease, stage 3a N18.31 Hypertension I10 COPD (chronic obstructive pulmonary disease) J44.9 COPD type: unspecified COPD Mastoiditis H70.90 Pulmonary nodules R91.8 DVT prophylaxis Z29.9 Hypothermia T68.XXXA Empty sella E23.6 Anemia D64.9 (1) COPD (chronic obstructive pulmonary disease) COPD type: unspecified COPD Qualified Code(s): J44.9 - Chronic obstructive pulmonary disease, unspecified
[2022-03-05] MEDS: ACETAMINOPHEN 1,000 MG/100 ML VIAL IV PRN (16:05)
[2022-03-05] MEDS: SENNOSIDES 8.8 MG/5 ML UDC PO SCH (20:04)
[2022-03-05] MEDS: LANSOPRAZOLE 30 MG SOLTAB PO SCH (20:04)
[2022-03-06] MEDS: TUBE FEEDING WATER FLUSH OG SCH ×3 (00:09→07:25)
[2022-03-06] MEDS: INSULIN ASPART PER UNIT SC SCH ×2 (00:20→06:48)
[2022-03-06] MEDS: VALPROATE SOD 250 MG in DEXTROSE 5% 50 ML IV SCH ×2 (00:20→07:17)
[2022-03-06] MEDS ORDERED: LABETALOL HCL IV 5 MG/ML 20ML IV STA ×2 (01:21→07:00)
[2022-03-06] MEDS: PIPERACILLIN/TAZOBACTAM 3.375 GM in DEXTROSE 5% 100 ML IV SCH (05:03)
[2022-03-06] MEDS: PEPTAMEN 1.5 CAL 1,000 ML BAG NG SCH (05:15)
[2022-03-06 05:31] LABS: Hematocrit (blood only) 28.5 % (37-47); Mean Corpuscular Hemoglobin 27.7 pg (25-34); Mean Corpuscular Hgb Conc 31.6 g/dL (32-36); Mean Corpuscular Volume 87.7 fL (80-100); Mean Platelet Volume 8.9 fL (7.4-10.4); Nucleated RBC # (auto) 0.07 K/uL (0-0); Nucleated RBC % (auto) 0.4 %; Platelet Count 172 K/uL (130-400); RDW Coefficient of Variation 14.9 % (11.5-14.5); RDW Standard Deviation 47.1 fL (36.4-46.3); Red Blood Count 3.25 M/uL (4.2-5.4); White Blood Count 15.56 K/uL (4.8-10.8)
[2022-03-06 05:51] LABS: Basophils # (auto) 0.11 K/uL (0-0.2); Basophils % (auto) 0.7 %; Eosinophils # (auto) 0.39 K/uL (0-0.5); Eosinophils % (auto) 2.5 %; Immature Granulocytes # (auto) 1.43 K/uL (0.00-0.02); Immature Granulocytes % (auto) 9.2 %; Lymphocytes % (auto) 14.8 %; Monocytes # (auto) 1.39 K/uL (0.11-0.59); Monocytes % (auto) 8.9 %; Neutrophils # (auto) 9.94 K/uL (1.4-6.5); Neutrophils % (auto) 63.9 %
[2022-03-06 05:51] LABS: BUN Creatinine Ratio 37.4 (10-20); Calcium 10.4 mg/dl (8.5-10.1); Creatinine Clr Calc Pharmacy 48.4 ml/min; Est GFR (African American) 52.6 ml/min; Est GFR (Non-African American) 45.4 ml/min; Magnesium 1.9 mg/dl (1.7-2.4); Phosphorus 2.5 mg/dl (2.5-4.9); Potassium 3.3 mmol/L (3.5-5.1)
[2022-03-06] MEDS ORDERED: POTASSIUM CHLORIDE 20 MEQ/15 ML UDC PO STA (06:25)
[2022-03-06] MEDS ORDERED: MAGNESIUM SULFATE / D5W 1 GM/100 ML BAG IV ONE (06:30)
[2022-03-06] MEDS: METOPROLOL TARTRATE 1 MG/ML VIAL IV PRN (06:48)
[2022-03-06] MEDS: hydrALAZINE TAB 50 MG TAB PO SCH (07:17)
[2022-03-06] MEDS: LANSOPRAZOLE 30 MG SOLTAB PO SCH (07:17)
[2022-03-06] MEDS: PRAVASTATIN SOD 40 MG TAB PO SCH (07:22)
[2022-03-06] MEDS: BUDESONIDE 0.25 MG/2 ML VIAL (PULMICORT) NEB SCH (07:28)
[2022-03-06] MEDS: FORMOTEROL 20 MCG/2 ML VIAL NEB SCH (07:29)
--- NOTE | 2022-03-06 08:21 | Critical Care Progress Note ---
Date of Service March 06, 2022 Assessment & Plan (1) Admitted to intensive care unit: Plan: Reason Critically Ill: 66-year-old female with recurrent acute on chronic hyp oxemic respiratory failure with hypercapnia requiring multiple intubations and close monitoring. Now s/p tracheostomy. 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 when tolerated; valproic acid levels appropriate (03/03) * No pressors, sedation, analgesics >24 hours CARDIAC/VASCULAR - * Hypertension, labile: * D/c'd clonidine patch (03/02). D/c'd levophed (03/03) * Metoprolol 5mg IV q4h prn systolic >180. * Continue hydralazine. If BP elevates, consider addition of amlodipine. Avoid ERICKA/ARB due to GERALD. Avoid beta blockers due to bradycardic events. * Patient pre-admission was only on coreg for HTN * Monitor on telemetry * Bilateral venous doppler neg for DVT RESPIRATORY - * Acute on chronic hypoxemic respiratory failure with hypercapnia: Poor compliance. * Chest XR (02/28) showed mediastinal shift to right with right lower lobe collapse. Subsequent bronchoscopy showed secretions but not enough to cause collapse. Most likely was due to aspiration pneumonia. * Chest x-ray (03/03) persistent RLL alveolar opacity. * Continue budesonide and Performist BID for history of COPD. * Tracheostomy performed with success (03/03). Continue with mechanical ventilation. GI/NUTRITION - * Tube feeds * ppx: protonix RENAL/LYTES - * GERALD --> improving * Hold IVF for now 2/2 fluid overload. * Replete lytes per protocol. Strict I&Os - * Degroot in place - Strict I&Os. ENDO - * DMII * BSGs per unit protocol. ISS --> gtt per unit policy. HEME - * Monitor H&H * Possible GI bleed. Protonix increased to 40mg BID. Repeat H&H. FOBT ordered. CT abd/pelv w/o con ordered to evaluate for retroperitoneal bled. * Thrombocytopenia improving. HIT antibodies neg. DIC work-up negative ID - * Repeat blood cultures no growth.Repeat sputum/lavage cx neg. Lumbar puncture from earlier in the hospitalization negative. Prior sputum and blood cultures negative.Pro-[place] negative. * Repeat nasal MRSA swab neg. Continue zosyn for aspiration pneumonia. * BAL growing yeast which is most likely colonizer, no need to treat currently. Wait for the sensitivities to come back --Prophylaxis VTE: Heparin on hold, IPC's GI: Lansoprazole Lines: Peripheral, positive Degroot, positive trach 03/02/2022 Diet: Tube feeds Plan: In/out: -333, urine output 1621 Amlodipine 10 mg added for the high blood pressure. H&H has been stable. Today H&H is actually 9 with mild elevation in WBC We will try to put the patient on pressure support in the morning today and vent at night Hypokalemia and hypomagnesemia being replaced DIC work-up negative, continue to hold heparin for the time being Thrombocytopenia is improving Continue with Zosyn for total of 7 days for aspiration pneumonia At LTAC I do think patient can be transitioned to may be trach collar during the day and vent at night. Transfer to LTAC today I have personally spent 35 minutes of critical care time in the direct management of this patient. This is a life/limb threatening event. This includes time spent evaluating patient, direct bedside care, chart review, placing orders, interpretation of diagnostic studies, discussion with consultants, patient, and/or family members regarding treatment decisions, as well as other required patient management activities. This time is exclusive of all separately billable procedures, and teaching time and separate from and in addition to any other critical care service time. (2) Acute on chronic respiratory failure with hypoxia and hypercapnia: (3) Acute metabolic encephalopathy: Admission and Anticipated Discharge Date Admission Date: February 20, 2022 Subjective Patient seen and examined at bedside. No acute distress, no adverse events overnight. She does complain some mild abdominal pain Denies any headache, no chest pain, no nausea or vomiting She did 2 bowel movements yesterday overnight which was loose. She is on stool softeners. We will hold that for the time being. Has been afebrile. Review of Systems Review of Systems: All systems reviewed & are unremarkable except as noted in Subjective Physical Exam Physical Exam: Constitutional: No acute distress HEENT: EOMI, PERRLA, positive trach Respiratory system: Decreased air entry bilaterally, no wheeze, no rhonchi, positive crackles bilaterally CVS: S1-S2 positive, no murmurs or gallops Abdomen: Soft, nontender, nondistended, positive bowel sounds x4, obese Extremities: +2 pulses bilaterally radialis/ dorsalis pedis, no cyanosis, +2 pitting edema bilateral lower extremity Neuro: Awake alert oriented to self, answering simple questions, following commands Psych: Normal mood and affect G/U: Positive Degroot Skin: no rashes, warm and dry Lymphatic: no cervical or axillary lymphadenopathy Results & Data Results & Data ([facility]) Vital Signs (Past 12 Hours) Vital Signs Pulse Pulse Resp BP Pulse Ox 03/06/22 07:34 79 24 100 03/06/22 06:48 97 H 188/77 H 03/06/22 06:01 88 18 188/77 H 94 03/06/22 06:00 88 18 183/72 H 94 03/06/22 05:00 79 19 174/80 H 93 03/06/22 04:07 78 19 94 03/06/22 04:00 79 18 95 03/06/22 03:00 80 16 153/64 H 95 03/06/22 02:00 73 18 163/64 H 94 03/06/22 01:45 70 18 145/62 H 94 03/06/22 01:01 92 H 15 196/96 H 94 03/06/22 01:00 98 H 16 94 03/06/22 00:00 91 H 15 163/64 H 92 03/05/22 23:40 87 21 97 03/05/22 23:00 86 18 154/68 H 92 03/05/22 22:01 101 H 17 162/83 H 91 03/05/22 22:00 103 H 15 91 03/05/22 21:00 96 H 18 136/54 L 92 03/05/22 20:50 93 H 21 92 03/05/22 20:42 92 H 21 91 Laboratory Results 03/06/22 05:08 03/06/22 05:18 Coding Level of Care Code Critical Care 1st 30-74 mins Diagnoses Admitted to intensive care unit Z78.9 Acute on chronic respiratory failure with hypoxia and hypercapnia J96.21; J96.22 Acute metabolic encephalopathy G93.41 Time Spent (min) 35
[2022-03-06] MEDS ORDERED: D5W AND 1/2NSS 1,000 ML IV SCH (08:30)
[2022-03-06] MEDS ORDERED: amLODIPine BESYLATE 5 MG TAB PO SCH (09:00)
--- NOTE | 2022-03-06 09:00 | Discharge Summary ---
Date of Service March 06, 2022 Admission HPI Per Admitting Provider 66 YOF with medical history of: COPD on home oxygen, DMII, HTN, obesity, pulmonary nodules, anemia. Patient was brought in to EMD today via EMS, secondary to being found unresponsive this morning and seizure like activity at home. Last known well was reported at 2130 last night before she went to bed. She is accompanied by her Son, who history is obtained from. She was found unresponsive this morning with her feet hanging over the bottom of her bed and cell phone on the floor. She was aroused and then had seizure like movements of all her extremities and stiffening of her body. EMS in transport reports anot her seizure like activity, where she was given Ativan en route. On arrival to the EMD the patient was noted to be anxious complaining of not being able to breath and "flailing all over the bed", She was administered another 2mg Of Ativan. She also received a dose of Zosyn, and Loaded with Keppra. She had routine labs performed to include blood cultures, CXR, CT scan of the head and VBG. She was noted to be acidotic to the 7.18 range with hypercarbia of 87. Hospitalist service was consulted for admission. She was being placed on BiPAP on my arrival to the EMD, patient is obtunded not responsive. ICU was consulted for intubation, central access, and LP with her encephalopathy, seizure, and febrility. Her CT scan of her head was notable for sinusitis and mastoiditis. Patient will be treated for encephalitis/meningitis empirically while CSF cultures are pending. She was started on Rocephin, Vancomycin and Acyclovir. She will transferred to the ICU with seizure precautions, continue Keppra. COVID on admission is: NEGATIVE - respiratory bio-fire will be added Principal Diagnosis recurrent acute on chronic respiratory failure with hypercapnea aspiration pneumonia seizure anemia ada on CKD3 empty sella on MRI Discharge Exam pt does awaken, ventilating via trache, follows some commands Discharge Data Allergies Allergy/AdvReac Type Severity Reaction Status Date / Time codeine AdvReac Mild SHAKING Verified 01/07/22 13:18 oxycodone AdvReac Unknown rash/shakes Verified 01/07/22 13:18 Consultations 02/20/22 14:33 ED Decision to Admit Stat 02/20/22 18:18 Consult Barrel Roller Operator Routine Consult Neurology Routine 03/02/22 08:02 Consult Otolaryngology (Head and Neck) Routine 03/05/22 09:26 Burn CD for patient Stat Ordered Studies Chest X-Ray 02/20/22 12:19 XR chest 1V portable CLINICAL HISTORY: sz. Evaluate cardiopulmonary status COMPARISON STUDY: 11/02/2021 TECHNIQUE: 1 view of the chest FINDINGS: Single frontal view of the chest demonstrates the cardiomediastinal silhouette to be within normal limits. The patient is rotated to the right. There is hyperinflation of the lungs with attenuation of the pulmonary vasculature peripherally characteristic of underlying chronic obstructive pulmonary disease. The lungs are clear of alveolar opacities. There is no evidence for pleural effusion. There is no evidence for vascular congestion. There is no acute osseous pathology. IMPRESSION: 1. No acute cardiopulmonary disease. 2. Underlying COPD. ACT 112: Negative or not required by law. Electronically signed by: Willy Valdes M.D. 02/20/2022 1:[address] 02/20/22 12:21 CT head/brain wo con CLINICAL HISTORY: sz COMPARISON STUDY: 10/21/2020 CT DOSE: 2710.81 mGy.cm TECHNIQUE: Standard CT of the Brain was performed without IV contrast. A dose lowering technique was utilized adhering to the principles of ALARA. FINDINGS: There is patient motion artifact present. Extraaxial space: There is no evidence for subdural hematoma. There are no extra-axial fluid collections. Ventricles and cisterns: The ventricles are normal in size and configuration. There is no evidence for midline shift or mass effect. Parenchyma: There is no subarachnoid or intraparenchymal hemorrhage. There is no evidence for an acute infarct or cerebral edema. There is homogeneous attenuation of the brain parenchyma. There are no gross mass lesions. Osseous structures: There is no evidence for an acute fracture. There is mucosal thickening in the right maxillary antrum. The remaining visualized paranasal sinuses are clear. There is diffuse mucosal thickening of the right mastoid air cells and compared to the left. Soft tissues: There is no evidence for focal soft tissue swelling. IMPRESSION: 1. No acute intracerebral pathology. 2. Right maxillary sinusitis. 3. Right mastoiditis ACT 112: Negative or not required by law. Electronically signed by: Willy Valdes M.D. 02/20/2022 1:38 PM Chest CTA 02/20/22 13:17 CT angio chest PE protocol CLINICAL HISTORY: Difficulty breathing COMPARISON STUDY: Portable chest from 02/18/2022 CT DOSE: 687.16 mGy.cm TECHNIQUE: CT Angio of the chest was performed.followed by image post processing with coronal, and sagittal MIP reformats. Contrast Volume: Optiray 320, 119 ml FINDINGS: Vasculature: There is homogeneous perfusion of the pulmonary vasculature bilaterally. No intraluminal filling defects or evidence for pulmonary embolus is seen. Airway: The airway is clear. No endobronchial lesion is identified. Lungs: There is mild to moderate centrilobular emphysematous changes present. There is a 1.2 cm subpleural nodular density seen involving the right lower lobe is noted on image 83. Branching parenchymal density seen within the right middle lobe characteristic of scarring. The lungs are otherwise clear of acute alveolar opacities, air bronchograms or additional pulmonary nodules. Pleura: There is no evidence for pleural effusion. There is no evidence for pneumothorax. Mediastinum: There is no evidence for pathologic adenopathy. There is a scoliotic curve with displacement of the heart to the left. The heart size is within normal limits. There is mild coronary artery calcification. The thoracic aorta is within normal limits. There is no evidence for pericardial effusion. Upper abdomen:The adrenal glands are normal bilaterally. Osseous structures: There is no acute osseous pathology. Impression: 1. No CTA evidence for pulmonary embolus. 2. No acute chest disease. 3. Mild to moderate centrilobular emphysematous changes with right lower lobe pulmonary nodule. Follow-up CT chest in 3-6 months recommended for further evaluation. ACT 112: Positive. There are findings on this exam that require communication between the performing entity and the patient following Patient Test Result Information Act ([place] Act 112) guidelines. Electronically signed by: Willy Valdes M.D. 02/20/2022 1:48 PM Chest X-Ray 02/20/22 15:18 XR chest 1V portable CLINICAL HISTORY: Status post intubation. COMPARISON STUDY: 02/20/2022 at 1252 hours TECHNIQUE: 1 view of the chest FINDINGS: Single frontal view of the chest demonstrates the cardiomediastinal silhouette to be within normal limits. Endotracheal tube has been place with its tip approximately 2.6 cm above the erik. NG tube extends below the edge of the film and into the stomach. The lungs are clear of alveolar opacities. There is no evidence for pleural effusion. There is no evidence for vascular congestion. There is no acute osseous pathology. IMPRESSION: 1. No acute cardiopulmonary disease. 2. Status post intubation and NG tube placement. ACT 112: Negative or not required by law. Electronically signed by: Willy Valdes M.D. 02/20/2022 3:32 PM Brain MRI 02/20/22 16:12 MR brain seizure wo/w con CLINICAL HISTORY: new onset seizure. COMPARISON STUDY: No previous studies for comparison. TECHNIQUE: Multiplanar multisequence images of the brain were performed before and after Gadavist, 8.5 mL of IV contrast. Diffusion weighted imaging and ADC mapping was also performed. FINDINGS: Extra-axial space: There is no evidence for a subdural hematoma, There are no extra-axial fluid collections. Ventricles and cisterns: The ventricles are normal in size and configuration. There is no evidence for midline shift or mass effect. Parenchyma: On noncontrast images, there is no evidence for an acute hemorrhage or infarct. No acute diffusion abnormalities are noted on diffusion weighted imaging or ADC mapping. There is normal bustamante-white differentiation. The sulci and gyri appear normal without effacement. There is evidence for an empty sella. The posterior fossa structures appear normal. On postcontrast images, there is no evidence for enhancing mass lesion. Osseous structures: The paranasal sinuses are well aerated. There is prominent mucosal thickening involving the mastoid air cells bilaterally, right greater than left. Soft tissues: There is evidence for soft tissue swelling along the roof of the mouth. Clinical correlation is recommended. IMPRESSION: 1. No acute intracranial abnormalities. 2. Bilateral mastoiditis, right greater than left. 3. Empty sella. 4. Evidence for soft tissue swelling along the roof of the mouth. Direct visualization is recommended. ACT 112: Negative or not required by law. Electronically signed by: Willy Valdes M.D. 02/21/2022 8:43 AM Chest X-Ray 02/21/22 06:00 XR chest 1V portable HISTORY: eval tube and line placement evaluate lungs COMPARISON: Chest 02/20/2022. FINDINGS: The endotracheal tube terminates 2.7 cm from the erik. Nasogastric tube terminates below the diaphragm with the tip located at the gastric fundus. Left subclavian central venous catheter terminates at the proximal SVC. No pneumothorax. No pleural effusions. The heart is normal in size. No new focal lung consolidations to suggest pneumonia. Emphysema. IMPRESSION: 1. Satisfactory support line placement. 2. No focal lung consolidations to suggest pneumonia. ACT 112: Negative or not required by law. Electronically signed by: Homar Scott M.D. 02/21/2022 7:56 AM Chest X-Ray 02/22/22 06:00 XR chest 1V portable CLINICAL HISTORY: eval tube and line placement evaluate lungs TECHNIQUE: Single frontal radiograph of the chest was obtained. Comparison: Comparison is made to chest radiograph 02/21/2022 FINDINGS: Interval removal of endotracheal and enteric tubes. A left venous catheter tip terminates at the upper SVC. The cardiomediastinal silhouette is normal. The lungs are clear. No evidence of pleural effusion or pneumothorax. IMPRESSION: No acute chest disease. ACT 112: Negative or not required by law. Electronically signed by: Jean-Pierre Milian M.D. 02/22/2022 8:29 AM Renal Artery Duplex 02/23/22 09:18 DOPPLER ULTRASOUND OF THE RENAL ARTERIES CLINICAL HISTORY: Severe hypertension. COMPARISON STUDY: CT of the abdomen and pelvis October 03, 2020. FINDINGS: The right kidney was not well visualized on this exam. There is no left hydronephrosis. The left kidney measures approximately 9 cm in maximal dimension. Peak systolic velocity within the abdominal aorta was 85 cm/s. The bilateral renal arteries and veins are partially obscured. Therefore, this study is nondiagnostic for evaluation for renal artery stenosis. IMPRESSION: Exam compromised by suboptimal penetration with obscured right kidney. Nondiagnostic evaluation for renal artery stenosis. ACT 112: Negative or not required by law. Electronically signed by: Daniel Babb M.D. 02/23/2022 11:08 AM Chest X-Ray 02/26/22 12:30 XR chest 1V portable HISTORY: right-sided rales; eval for pneumonia COMPARISON: Chest 02/22/2022. FINDINGS: Rotated study. The heart remains mildly enlarged. Trace bilateral pleural effusions. No pneumothorax. No focal lung consolidations to suggest pneumonia. No evidence for pulmonary edema. Left subclavian Port-A-Cath runs at the proximal SVC. This remains unchanged. IMPRESSION: Rotated study. Stable mild cardiomegaly with trace bilateral pleural effusions. ACT 112: Negative or not required by law. Electronically signed by: Homar Scott M.D. 02/26/2022 2:28 PM Chest X-Ray 02/26/22 21:42 XR chest 1V portable HISTORY: increasing pedal edema, respiratory distress COMPARISON: Chest 02/26/2022. FINDINGS: No pneumothorax. Old, healed right-sided rib fractures. Mild cardiac megaly persists. There is mild central pulmonary vascular congestion without overt edema. Small right pleural effusion right patchy basilar densities are noted. Left subclavian Port-A-Cath terminates at the proximal SVC. IMPRESSION: 1. Cardiomegaly with mild congestive change. 2. Small right pleural effusion and a patchy right basilar density. ACT 112: Negative or not required by law. Electronically signed by: Homar Scott M.D. 02/27/2022 7:54 AM Abdomen/Pelvis CT 02/27/22 12:29 CT SCAN OF THE ABDOMEN AND PELVIS WITHOUT IV CONTRAST CLINICAL HISTORY: Acute renal insufficiency. COMPARISON STUDY: Abdominal CT dated 10/03/2020. TECHNIQUE: Unenhanced CT scan of the abdomen and pelvis is performed from the lung bases to the proximal femora. Images are reviewed in the axial, sagittal, and coronal planes. IV contrast was not administered for this examination. Note that the examination is suboptimal without oral and IV contrast. A dose lowering technique was utilized adhering to the principles of ALARA. The examination is degraded by motion artifact, as well as by streak artifact from the arms which could not be elevated above the abdomen. CT DOSE: 1037.44 mGy.cm FINDINGS: Lung bases: The heart is normal in size and without pericardial effusion. The lung bases are clear noting bibasilar scarring/atelectasis. There is a small hiatal hernia. Liver: Evaluation of the liver is significantly degraded by streak artifact. The unenhanced liver is grossly normal in size, contour, and attenuation. There is no intrahepatic biliary ductal dilatation. Gallbladder: Surgically absent noting clips in the gallbladder fossa. Spleen: Normal in size and attenuation. Pancreas: The unenhanced pancreas is mildly atrophic and grossly unremarkable. Adrenal glands: Unremarkable. Kidneys: The unenhanced kidneys demonstrate cortical atrophy and are without hydronephrosis. Cortical scarring is noted in the left upper pole. No renal calculi are identified. There is no evidence of contour deforming mass lesion. Abdominal vasculature: The abdominal aorta is normal in course and caliber noting advanced atherosclerotic calcification. Bowel: A rectal temperature probe is in place. A long segment of narrowing is again seen within the sigmoid colon on image #302. This measures approximately 10 cm in length and is unchanged from prior examination. The upstream colon is only mildly distended with stool. The small bowel loops are normal in caliber. The appendix is well-visualized and normal. Peritoneum: There is no intraperitoneal free air or abdominal ascites. Lymphadenopathy: None. Pelvic viscera: The bladder is decompressed around a Degroot catheter. There is intraluminal gas and surrounding inflammation. The uterus and adnexa are normal as imaged. Skeletal structures: The skeletal structures are osteopenic. No lytic or blastic lesions are seen. IMPRESSION: 1. Streak and motion compromised examination 2. Again seen is a long segment of colonic narrowing involving the sigmoid which could represent stricture or possibly adhesions. There is no evidence of mass lesion, and no evidence of upstream colonic obstruction at this time. 3. The kidneys demonstrate cortical atrophy and are without hydronephrosis. 4. The bladder is decompressed around a Degroot catheter and there is surrounding inflammation. Correlate with urinalysis. 5. Additional findings as above. ACT 112: Negative or not required by law. Electronically signed by: Lexa Mcgraw M.D. 02/27/2022 2:31 PM Chest X-Ray 02/27/22 19:52 SINGLE VIEW CHEST CLINICAL HISTORY: Respiratory failure. Intubation. FINDINGS: 3 AP, portable, semierect chest radiographs are compared to study dated 02/26/2022 and correlated with chest CT dated 02/20/2022. The examination is significant degraded by portable technique and patient rotation. An endotracheal tube has been placed. The tip projects approximately 3 cm above the erik. An enteric tube has been placed. This projects below the diaphragm and the tip is not visualized. A left subclavian central venous catheter is unchanged in position. Emphysema and chronic interstitial thickening is similar to previous. There is volume loss in the right lung with rightward shift of the mediastinum. The heart is normal in size and there is atherosclerotic calcification of the thoracic aorta. Scarring/atelectasis is noted at the lung bases. No large pleural effusion or pneumothorax is seen. The skeletal structures are osteopenic. There are healed right-sided rib fractures. Cholecystectomy clips are noted in the right upper quadrant. IMPRESSION: 1. Endotracheal and enteric tubes have been placed as above. 2. Emphysema and chronic parenchymal changes as above. 3. No airspace consolidation typical for pneumonia or large pleural effusion is identified. ACT 112: Negative or not required by law. Electronically signed by: Lexa Mcgraw M.D. 02/27/2022 8:[address] 02/27/22 20:26 CT SCAN OF THE CHEST WITHOUT IV CONTRAST CLINICAL HISTORY: Hypoxia COMPARISON STUDY: Chest x-ray dated 02/27/2022. Chest CT dated 02/20/2022. Abdominal CT scan performed the same day 02/27/2022. TECHNIQUE: CT scan of the thorax was performed from the thoracic inlet to the upper abdomen. Images are reviewed in the axial, sagittal, and coronal planes. IV contrast was not administered for this examination as per the referring clinician. A dose lowering technique was utilized adhering to the principles of ALARA. The examination is degraded by motion artifact, as well as by streak artifact from the arms which could not be elevated above the chest. FINDINGS: Thyroid: Normal in size and heterogeneous in attenuation. Thoracic aorta: There is atherosclerotic calcification of the thoracic aorta, which is normal in caliber and demonstrates standard 3-vessel arch anatomy. Heart: A left subclavian central venous catheter is in place. The heart is normal in size and without pericardial effusion. There are coronary artery calcifications. Lungs and pleural spaces: Emphysema is noted and there is chronic volume loss in the right lung with compensatory hyperinflation of the left lung. Foci of pa renchymal scarring are seen throughout both lungs. An endotracheal tube is in place and terminates above the erik. Secretions are noted in the trachea. Secretions/debris fill the right mainstem bronchus and are seen throughout the lower lobe airways. Mild secretions are also seen in the left mainstem bronchus. Dependent consolidation at the right lung base is new as compared to today's abdominal CT scan. There are scattered calcified granulomas. Punctate nodules at the right apex are new from previous and likely inflammatory. A 4 mm left upper lobe pulmonary nodule image #84 is unchanged. A trace right pleural effusion is noted. Mediastinum: There is increasing rightward shift of mediastinum is compared to previous. Numerous mildly enlarged mediastinal lymph nodes are similar to previo us and measure up to 10 mm in short axis. Ivanna: Not well assessed without IV contrast. Axillae: There is no axillary lymphadenopathy. Upper abdomen: There is a small hiatal hernia. An enteric tube extends below the diaphragm into the stomach. Cholecystectomy clips are noted. Cortical scarring is noted in the upper pole of the left kidney. Skeletal structures: The skeletal structures are osteopenic. No lytic or blastic bony lesions are seen. IMPRESSION: 1. Lines and tubes as above. 2. There is near complete opacification of the right lower lobe airways, which is new from 02/20/2022. Correlate clinically for evidence of aspiration. 3. Airspace consolidation at the right lung base is new from earlier today and there is increased volume loss in the right lung with increasing rightward shift of the mediastinum. The dependent consolidation likely represents atelectasis. Correlate clinically for evidence of a superimposed pneumonia/aspiration pneumonitis. 4. A trace right pleural effusion is new from earlier today. 5. Emphysema and chronic volume loss in the right lung as above. 6. Mild secretions/debris is also seen in the left mainstem bronchus. 7. Additional findings as above. ACT 112: Negative or not required by law. Electronically signed by: Lexa Mcgraw M.D. 02/27/2022 9:[address] 02/27/22 20:26 CT SCAN OF THE BRAIN WITHOUT IV CONTRAST CLINICAL HISTORY: Change in mental status. COMPARISON STUDY: CT of the brain dated 02/20/2022. TECHNIQUE: Unenhanced axial CT scan of the brain is performed from the vertex to the skull base. A dose lowering technique was utilized adhering to the principles of ALARA. CT DOSE: 1667.08 mGy.cm FINDINGS: Endotracheal and enteric tubes are noted on the bargeman tomogram. Brain parenchyma: There is age-related involutional change noting mild subcortical and periventricular microangiopathic disease. There is no hemorrhage, mass effect, or evidence of acute territorial ischemia by CT criteria. Bustamante-white matter differentiation is preserved. No extra-axial fluid collection is seen. Ventricles, sulci, cisterns: Prominent secondary to involutional change. Intracranial vasculature: There is atherosclerotic calcification of the cavernous carotid and vertebral arteries. Calvarium: The skeletal structures are osteopenic. No depressed calvarial fracture is identified. Soft tissues: There is an occipital scalp contusion. Sinuses and mastoids: There is moderate mucosal thickening in the right maxillary antrum. The remaining paranasal sinuses are clear. There are bilateral mastoid effusions. Orbits: The bony orbits are grossly intact. IMPRESSION: There is no hemorrhage, mass effect, or evidence of acute territorial ischemia by CT criteria. ACT 112: Negative or not required by law. Electronically signed by: Lexa Mcgraw M.D. 02/27/2022 9:21 PM Chest X-Ray 02/28/22 07:00 XR chest 1V portable CLINICAL HISTORY: Dyspnea TECHNIQUE: Single frontal radiograph of the chest was obtained. Comparison: Comparison is made to chest radiograph 02/27/2022 FINDINGS: Lines and tubes are stable. Stable rightward mediastinal shift. Emphysematous changes are seen and there is blunting of the right costophrenic angle which may represent a small effusion or scarring. IMPRESSION: Stable exam. No airspace opacities, chronic findings as above. ACT 112: Negative or not required by law. Electronically signed by: Jean-Pierre Milian M.D. 02/28/2022 8:36 AM Chest X-Ray 02/28/22 08:16 XR chest 1V portable CLINICAL HISTORY: Post Bronchoscopy TECHNIQUE: Single frontal radiograph of the chest was obtained. Comparison: Comparison is made to chest radiograph 02/28/2022 FINDINGS: Lines and tubes are stable. Rightward mediastinal shift is noted. Opacification of the right lower lobe is again noted. Pneumothorax is seen. Small bilateral pleural effusions cannot be excluded. IMPRESSION: 1. No evidence of pneumothorax status post bronchoscopy. 2. Right lower lobe remains opacified. ACT 112: Negative or not required by law. Electronically signed by: Jean-Pierre Milian M.D. 02/28/2022 8:38 AM Chest X-Ray 03/01/22 07:00 XR chest 1V portable HISTORY: 66 years-old Female f/u acute respiratory failure COMPARISON: Chest radiograph 02/28/2022 TECHNIQUE: Portable AP view of the chest FINDINGS: Endotracheal tube overlies the midline, 2.9 cm superior to the erik. Enteric tube courses into the stomach. Left subclavian central venous catheter distal tip is noted in the expected location of the upper to mid SVC. Suggested skinfold projects over the right lung apex. Suspected trace pleural effusions. There is persistent right basilar consolidation. Right lung volume loss is also noted along with emphysema and chronic interstitial coarsening. The heart is normal in size. Degenerative changes of the shoulders and spine. IMPRESSION: 1. Lines and tubes as above. 2. Persistent right basilar consolidation with right lung volume loss. 3. Emphysema with chronic interstitial coarsening. ACT 112: Negative or not required by law. The above report was generated using voice recognition software. It may contain grammatical, syntax or spelling errors. Electronically signed by: Bal Wells M.D. 03/01/2022 7:08 AM Chest X-Ray 03/02/22 06:14 XR chest 1V portable CLINICAL HISTORY: s/p intubation COMPARISON STUDY: Chest CT February 27, 2022. Chest radiograph March 01, 2022. FINDINGS: Left subclavian central line is in place. Tip of endotracheal tube is 4 cm above the erik. Tip of nasogastric tube is at least within the body of the stomach. There is no pneumothorax. No evidence for pulmonary edema. There may be a trace right pleural effusion. Extensive right lower lung airspace opacity with volume loss is again noted. Opacity has slightly increased. Associated rightward mediastinal shift is noted. IMPRESSION: 1. Satisfactory positioning of lines and tubes. 2. Increase in extensive right basilar airspace opacity with volume loss. This could reflect pneumonia or atelectasis. ACT 112: Negative or not required by law. Electronically signed by: Daniel Babb M.D. 03/02/2022 8:40 AM Venous Doppler Study 03/02/22 09:49 BILATERAL LOWER EXTREMITY VENOUS DOPPLER HISTORY: Acute pain and swelling of the lower legs r/o DVT COMPARISON STUDY: Duplex venous Doppler study 09/29/2020 FINDINGS: There is normal compressibility, flow, and augmentation within the bilateral lower extremity deep venous systems. Subcutaneous edema of the lower legs. IMPRESSION: No DVT within the right or left lower extremity. ACT 112: Negative or not required by law. Electronically signed by: Bal Wells M.D. 03/02/2022 12:14 PM Chest X-Ray 03/03/22 07:28 XR chest 1V portable CLINICAL HISTORY: s/p trach. . Evaluate positioning and follow-up right basilar opacity COMPARISON STUDY: 03/02/2022 TECHNIQUE: 1 view of the chest FINDINGS: Single frontal view of the chest demonstrates the cardiomediastinal silhouette to be within normal limits. The patient is status post tracheostomy with the tracheostomy tube is midline. Compared to previous examination, there is again right lower lobe alveolar opacity characteristic of atelectasis versus early pneumonia. Left hemithorax is clear. There is blunting of the right costophrenic angle is well characteristic of small right pleural effusion. There is no definite left pleural effusion. There is no evidence for vascular congestion. There is no acute osseous pathology. IMPRESSION: 1. Status post tracheostomy. 2. Persistent right lower lobe alveolar opacity most characteristic of atelectasis versus early pneumonia. 3. This also evidence for small right pleural effusion. ACT 112: Negative or not required by law. Electronically signed by: Willy Valdes M.D. 03/03/2022 8:11 AM KUB X-Ray 03/03/22 11:00 XR KUB/Abdomen 1 view CLINICAL HISTORY: New NG tube placed. COMPARISON STUDY: 11/01/2020 TECHNIQUE: Single view of the abdomen. FINDINGS: The bowel gas pattern is within normal limits without evidence for dilatation or obstruction. There has been placement of a feeding tube with its tip in the distal body the stomach. There is no evidence for organomegaly or gross intra- abdominal mass. No abnormal calcifications are seen along the course of the urinary tracts bilaterally. No acute osseous pathology. IMPRESSION: 1. No acute intra-abdominal abnormality. 2. Tip of feeding tube in the distal body of the stomach. ACT 112: Negative or not required by law. Electronically signed by: Willy Valdes M.D. 03/03/2022 11:27 AM Abdomen/Pelvis CT 03/04/22 07:[address] WITHOUT CONTRAST CT DOSE: 1247.85 mGy.cm HISTORY: Follow up study in a patient with retroperitoneal hematoma r/o retroperitoneal bleed TECHNIQUE: Multiaxial CT images of the abdomen and pelvis were performed without contrast. A dose lowering technique was utilized adhering to the principles of ALARA. COMPARISON STUDY: CT abdomen and pelvis 02/27/2022 FINDINGS: Coronary artery calcifications. Decreased attenuation of the cardiac blood pool suggestive of anemia. Small right pleural effusion. Right basilar opacities include dense airspace consolidation of the basal right lower lobe. Mild subsegmental left basilar atelectasis. Limited study secondary to positioning, respiratory motion and lack of contrast. No pneumatosis or pneumoperitoneum. The unenhanced spleen, pancreas and adrenal glands are unremarkable. Chol ecystectomy. Hepatomegaly. Mild cortical thinning of the kidneys. No urolith or hydronephrosis. Decompressed urinary bladder with wall thickening. A Degroot catheter is in place. Air within the bladder lumen is likely secondary to instrumentation. Suggested fibroid uterus. The endometrium appears mildly thickened for postmenopausal patient measuring up to approximately 10 mm at the fundus. No adnexal mass lesions. Atherosclerosis of the aorta. There is no lymphadenopathy. Small hiatal hernia. Distal tip of feeding tube projects over the distal stomach. No small bowel obstruction. A rectal catheter is in place. Moderate fecal retention with scattered air-fluid levels throughout the large bowel. The previously described thickening with luminal narrowing of the sigmoid colon is no longer appreciated. Normal appendix. No retroperitoneal hematoma identified. Mild generalized body wall edema with trace perihepatic ascites. Degenerative changes of the spine, pelvis and hips. IMPRESSION: 1. Decreased attenuation of the cardiac blood pool suggestive of anemia. No retroperitoneal hematoma identified. 2. No bowel obstruction or bowel wall thickening. 3. Small right pleural effusion with right basilar consolidation suggestive of pneumonia. Correlate clinically to exclude aspiration pneumonitis. 4. Feeding tube within the distal stomach. 5. Mild thickening of the postmenopausal endometrium. 6. Additional findings as above. ACT 112: Negative or not required by law. The above report was generated using voice recognition software. It may contain grammatical, syntax or spelling errors. Electronically signed by: Bal Wells M.D. 03/04/2022 10:19 AM Chest X-Ray 03/05/22 07:00 XR chest 1V portable HISTORY: 66 years-old Female Resp failure acute respiratory failure COMPARISON: Chest radiograph 03/03/2022 TECHNIQUE: Multiple AP view of the chest FINDINGS: Tracheostomy cannula overlies the midline. Enteric tube courses below the diaphragm with distal tip outside the [id number]. Exam is limited secondary to patient positioning. Status post removal of left subclavian central venous catheter. No pneumothorax. Pulmonary vascular congestion with interstitial coarsening. Trace left and small moderate right pleural effusions with persistent right basilar opacities. Surgical clips project over the abdominal right upper quadrant. Degenerative changes of the shoulders and spine. IMPRESSION: 1. Cardiomegaly with with mild pulmonary edema. 2. Trace left with small to moderate right pleural effusions redemonstrated emile ng with right basilar consolidation. ACT 112: Negative or not required by law. The above report was generated using voice recognition software. It may contain grammatical, syntax or spelling errors. Electronically signed by: Bal Wells M.D. 03/05/2022 7:28 AM Hospital Course (1) Aspiration pneumonia: 03/02/22 Acute respiratory failure with hypercapnia and acidemia, failed Bipap re intubated and ventilated tracheostomy placed CT chest 02/27/22 with secretions/debris in RLL airway IV zosyn 02/28->03/07 s/p bronch by Dr Latham 02/28/22 - culture negative. blood cultures 02/26/22 negative. TF peptamen 1.5, 50 ml an hour, free water 150q4 (2) Acute on chronic respiratory failure with hypoxia and hypercapnia: Recurrent, severe acute respiratory acidosis Re intubated 03/02/22 Developed aspiration pneumonia with previous decline 02/27/22, now supported by trache and ventialtion (3) Acute metabolic encephalopathy: 02/26/22 - developed severely altered mental status. 2nd to severe respiratory acidosis & hypothermia at that time. MRI brain from earlier in the stay without acute or chronic CVA, ICH, etc. Despite Rx of respiratory acidosis (with intubation/mech ventilation) her mental status remains in question does follow commands Depakote level not toxic. Ammonia level wnl. TSH wnl. (4) Acute kidney injury: Likely ATN from prerenal causes. Obstruction ruled out with negative CT a/p. (5) Anemia: continues to be low, CT Abd/pelvis without retroperitoneal bleed. holding anticoagulants persistent anemia without worseing is likley multifactorial (6) Sepsis: Meningitis ruled out early in stay s/p normal LP. Had been on cefepime + doxycycline developed aspiration pneumonia transitioned to zosyn. cx's negative. (7) Seizure-like activity: Reported and witnessed by EMS just prior to admission. EEG without se izure activity. MRI brain negative. Seen by neurology earlier this stay - depakote advised. depakote repeat level sl low 03/03/22, no dose adjustment recommended by icu (8) Elevated troponin: Peak HS trop was 187 earlier in stay -- likely 2nd to myocardial demand ischemia in setting of respiratory failure. (9) Chronic kidney disease, stage 3a: (10) Hypertension: (11) COPD (chronic obstructive pulmonary disease): (12) Mastoiditis: b/l - seen on MRI brain. clinically there is no evidence of such on exam =- no inflammation/swelling/tenderness over either mastoid; ears symmetric; etc. (13) Pulmonary nodules: Right lower lobe nodule seen on CT chest earlier in the stay. Follow-up CT chest 3 months. (14) DVT prophylaxis: was on hold with anemia, may consider restart given hgb stable and no acute blood loss seen (15) Hypothermia: Resolved. (16) Empty sella: Seen on MRI brain earlier this admission. In light of recurrent sepsis-like picture, resp failure, low BP, etc -- TSH, FT4, and cortisol - all wnl. Total Time Total Time Spent Total Time Spent (In Minutes): it took greater than 30 minutes to complete this summary Discharge Plan Discharge Items Patient Disposition: Transfer to LTAC Reason For Visit: SEIZURE,ACIDOSIS,FEVER Discharge Diagnosis: recurrent acute on chronic respiratory failure with hypercapnea aspiration pneumonia seizure anemia ada on CKD3 empty sella on MRI Activity: Per Instructions section Activity Comment: PT/OT arsen speech Non-emergency contact: Primary Care Provider Call non-emergency contact if: your symptoms worsen Follow-up/Referrals: Beatriz Baker DO [Primary Care Provider] - Diet Comment: peptamen 1.5 goal 50 ml/hr + 150 free water q 4H Addtl Attending Provider Instructions: Pt has a whitney course failing extubation and requiring tracheostomy and persisent Ventalitory support treated for pneumonia and did have Bronchoscopy during stay with secretion and debris in RLL airway, bronch and blood CX negative IV zosyn used 02/28-)03/07 did develp some anemia, felt to be multifactora, retroperitoneal bleed r/o By CT and stool not with melena or blood, on prevacid via ngt with regard to sz, valproic acid stared last level slightly low but clinically stable without sz since earlier in hospital stay Pending Studies at Discharge: Yes Studies:: cultures Stand-Alone Forms: My [facility] Skilled Items Patient informed of condition?: Yes DNR: No Discharge Level of Care: Acute rehab Communicable Disease: No Discharge Prognosis: Stable Lines: US Guided Peripheral IV Urinary Catheter: Yes Medications and DC Order Prescriptions: New formoterol fumarate [Perforomist] 20 mcg/2 mL Solution For Nebulization 20 mcg NEB BIDR Qty: 60 RF: 0 amlodipine [Norvasc] 5 mg Tablet 10 mg PO QAM Qty: 30 RF: 0 hydralazine 50 mg Tablet 100 mg PO TID Qty: 90 RF: 0 divalproex 125 mg Capsule, Delayed Rel Sprinkle 500 mg PO BID Qty: 30 RF: 0 Peptamen 1.5 0.068 gram- 1.5 kcal/mL Liquid See Rx Instructions .ROUTE .COMPLEX Qty: 6000 RF: 0 lansoprazole [Prevacid SoluTab] 30 mg Tablet,Disintegrat, Delay Rel 30 mg PO BID Qty: 60 RF: 0 sennosides [senna] 8.8 mg/5 mL Syrup See Rx Instructions .ROUTE .COMPLEX Qty: 200 RF: 0 insulin aspart U-100 [Novolog U-100 Insulin aspart] 100 unit/mL Solution 1 unit SC Q6 Qty: 10 RF: 0 Continued pravastatin 80 mg tablet 80 mg PO DAILY Qty: 90 RF: 1 albuterol sulfate 2.5 mg /3 mL (0.083 %) solution for nebulization 2.5 mg inhalation Q4H PRN (Reason: wheezing) Qty: 300 RF: 5 budesonide 0.5 mg/2 mL suspension for nebulization 0.5 mg inhalation BID Qty: 120 RF: 5 folic acid 400 mcg Tablet 400 mcg PO QAM Qty: 30 RF: 0 miconazole nitrate 2 % aerosol powder 1 spray topical BID PRN (Reason: NEEDED.) RF: 0 Discontinued metformin 1,000 mg tablet 1,000 mg PO BID Qty: 180 RF: 2 docusate sodium 100 mg capsule 100 mg PO BID Qty: 180 RF: 1 fluticasone propionate [Flonase Allergy Relief] 50 mcg/actuation spray,suspension 2 spray intranasal DAILY PRN (Reason: allergy symptoms) Qty: 15.8 RF: 3 ipratropium bromide 0.02 % solution 2.5 ml INHALATION QID Qty: 187.5 RF: 5 pantoprazole 40 mg tablet,delayed release (DR/EC) 40 mg PO DAILY Qty: 90 RF: 1 Bevespi Aerosphere 9-4.8 mcg HFA aerosol inhaler 2 puff INHALATION BID Qty: 10.7 RF: 5 loratadine [Claritin] 10 mg tablet 10 mg PO DAILY Qty: 30 RF: 5 tramadol 50 mg tablet 50 mg PO TID PRN (Reason: Pain) Qty: 90 RF: 0 albuterol sulfate [Ventolin HFA] 90 mcg/actuation HFA aerosol inhaler 2 inh INH QID PRN (Reason: Wheezing) Qty: 8.5 RF: 5 baclofen 10 mg tablet 10 mg PO TID PRN (Reason: muscle spasm) Qty: 90 RF: 1 aspirin 81 mg tablet,delayed release (DR/EC) 81 mg PO DAILY RF: 0 carvedilol 6.25 mg Tablet 6.25 mg PO BID Qty: 30 RF: 0 polyethylene glycol 3350 [Miralax] 17 gram/dose Powder 17 g PO DAILY PRN (Reason: Constipation) RF: 0 simethicone 80 mg Tablet,Chewable 80 mg PO DIRECTED PRN (Reason: BLOATING/GAS RELIEF) RF: 0 sennosides 8.6 mg tablet 8.6 - 17.2 mg PO HS RF: 0 Discharge Orders: Discharge Order (Routine); Ordered 03/06/22 Ordered By: Jefferson Paredes/Other Patient Handouts: Managing Type 2 Diabetes Admission Data Admit Date/Time: 02/20/22 15:53 Attending Provider: Jefferson Pena Admit Provider: Mika Lee Primary Care Provider: Beatriz Baker Other Providers: Dany Vanegas ; Nan Blackman ; Mika Lee ; Alfonso Rivera ; Kalyan Douglas ; [facility] [place] Coding Level of Care Code D/C DAY MANAGEMENT >30 MINS Diagnoses Aspiration pneumonia J69.0 Acute on chronic respiratory failure with hypoxia and hypercapnia J96.21; J9 6.22 Acute metabolic encephalopathy G93.41 Acute kidney injury N17.9 Anemia D64.9 Sepsis A41.9 Seizure-like activity R56.9 Elevated troponin R77.8 Chronic kidney disease, stage 3a N18.31 Hypertension I10 COPD (chronic obstructive pulmonary disease) J44.9 COPD type: unspecified COPD Mastoiditis H70.90 Pulmonary nodules R91.8 DVT prophylaxis Z29.9 Hypothermia T68.XXXA Empty sella E23.6
== END 2022-03-06 12:20 | DRG 4 ==
LOC: ED 12:15 → 1E 15:53 → SUATTDRO 15:53 → 1E 17:33 → 2N 02-22 17:16 → 1E 02-26 22:07